=== PATIENT | female | born 1940 | race Caucasian/White ===

== ENCOUNTER → 2016-11-28 | Outpatient (CLI) | payer MEDICARE ==
--- NOTE | 2016-11-28 13:53 | MM ---
Reason for exam: screening (asymptomatic). Last mammogram was performed 1 year and 6 months ago. 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 Reductions of both breasts, 1996. Took estrogen for 3 years. Physical Findings: A clinical breast exam by your physician is recommended on an annual basis and results should be correlated with mammographic findings. MG 3D Screening Mammo W/Cad Bilateral CC and MLO view(s) were taken. Prior study comparison: June 06, 2015, bilateral MG 3d screening mammo w/cad. November 08, 2013, bilateral MG screening mammo w CAD. The breast tissue is almost entirely fat. No significant changes when compared with prior studies. ASSESSMENT: Benign, BI-RAD 2 RECOMMENDATION: Routine screening mammogram of both breasts in 1 year.
== END | disposition home or self-care (01) ==
LOC: RADMAMWWP 09:02
PROVIDERS: ATTEND Internal Medicine
DX: Z12.31 Encounter for screening mammogram for malignant neoplasm of breast (principal)
CPT/HCPCS: 77063; G0202; 36415; 80048; 84443

== ENCOUNTER → 2016-11-28 | Outpatient (CLI) | payer MEDICARE ==
[2016-11-28 09:43] LABS: Anion Gap 11 mmol/L; Blood Urea Nitrogen 22 mg/dL (7-17); Calcium 9.7 mg/dL (8.4-10.2); Carbon Dioxide 30 mmol/L (22-30); Chloride 103 mmol/L (98-107); Glucose 101 mg/dL (74-99); Non-African American GFR(MDRD) 54 (>60 ml/min/1.73 sqM); Potassium 3.7 mmol/L (3.5-5.1); Sodium 144 mmol/L (137-145)
== END | disposition home or self-care (01) ==
LOC: LABWHC1 08:58
PROVIDERS: ATTEND Internal Medicine Clinical Cardiac Electrophysiology
DX: I48.2 Chronic atrial fibrillation (principal)
CPT/HCPCS: 36415; 80048; 84443

== ENCOUNTER 2017-10-20 21:13 | Inpatient (IN) | payer MEDICARE ==
[2017-10-20] MEDS ORDERED: MORPHINE SULFATE 4 MG/0.8 ML SYRINGE (INJ) IVP STA ×2 (21:33→23:01)
[2017-10-20] MEDS: NITROGLYCERIN SL TABS 0.4 MG TAB SUBLINGUAL STA ×4 (21:35→23:04)
--- NOTE | 2017-10-20 21:38 | ED ---
General Adult HPI - General Chief complaint: Chest Pain Stated complaint: MARYLOU/fluid retention Time Seen by Provider: 10/20/17 21:20 Source: patient, RN notes reviewed, old records reviewed Mode of arrival: ambulatory Limitations: no limitations - History of Present Illness Initial comments: 76 -year-old female presenting for evaluation of chest pain. Patient describes severe substernal chest pain and pressure. She does report radiation to her right shoulder. She has history of atrial fibrillation status post pacemaker. She has history of congestive heart failure. In addition to her pain complaints , patient does report worsening dyspnea over the past 3 days and worsening bilateral lower extremity swelling. Patient denies any dietary changes. Denies missing any of her medications. She is currently on the digoxin, metoprolol, furosemide, spironolactone, and xarelto. Patient reports PND and orthopnea. She does report that the pain is been constant for the past 3 days, worse with lying flat. - Related Data Home Medications Medication Instructions Recorded Confirmed Digoxin [Lanoxin] 125 mcg PO DAILY 11/30/13 10/20/17 Furosemide [Lasix] 40 mg PO DAILY 11/30/13 10/20/17 Losartan [Cozaar] 25 mg PO DAILY 11/30/13 10/20/17 Rivaroxaban [Xarelto] 20 mg PO HS 11/30/13 10/20/17 Spironolactone [Aldactone] 25 mg PO MOWEFR 11/30/13 10/20/17 Temazepam 15 mg PO HS PRN 11/30/13 10/20/17 Multivitamins, Thera [Multivitamin 1 tab PO HS 01/20/14 10/20/17 (formulary)] Ubidecarenone [Coq-10] 100 mg PO HS 01/20/14 10/20/17 Atorvastatin [Lipitor] 40 mg PO DAILY 10/20/17 10/20/17 L.acidoph,Paracasei, B.lactis 1 tab PO HS 10/20/17 10/20/17 [Probiotic] Levothyroxine Sodium [Synthroid] 75 mcg PO MOTUWETH 10/20/17 10/20/17 Levothyroxine Sodium [Synthroid] 150 mcg PO SUFRSA 10/20/17 10/20/17 Metoprolol Succinate (ER) [Toprol 100 mg PO BID 10/20/17 10/20/17 Xl] Allergies Allergy/AdvReac Type Severity Reaction Status Date / Time ibuprofen [From Motrin] AdvReac Swelling Verified 10/20/17 21:41 levofloxacin [From Levaquin] AdvReac Rash/Hives Verified 10/20/17 21:41 adhesive tape AdvReac blisters Uncoded 10/20/17 21:18 Review of Systems ROS Statement: Those systems with pertinent positive or pertinent negative responses have been documented in the HPI. ROS Other: All systems not noted in ROS Statement are negative. Past Medical History Past Medical History: Cancer, Heart Failure, GERD/Reflux, Hyperlipidemia, Hypertension, Myocardial Infarction ([place]), Thyroid Disorder Additional Past Medical History / Comment(s): hiatal hernia, arthritis, hx skin cancer, hx diverticulitis,irregular heart rate, pt states some family have genetic disorder that causes blood clots- she has not been dx with the disorder. Last Myocardial Infarction Date:: 04/2012 History of Any Multi-Drug Resistant Organisms: None Reported Past Surgical History: AICD, Bowel Resection, Breast Surgery, Cardiac Ablation, Cholecystectomy, Heart Catheterization, Hysterectomy, Orthopedic Surgery, Pacemaker, Tonsillectomy Additional Past Surgical History / Comment(s): breast reduction, arthroscopic rt knee, generator change 2013 Past Anesthesia/Blood Transfusion Reactions: No Reported Reaction Type of Cardiac Device: Permanent Pacemaker, AICD Device Placement Date:: 2006 Past Psychological History: No Psychological Hx Reported Smoking Status: Former smoker Past Alcohol Use History: Occasional Past Drug Use History: None Reported - Past Family History Mother Family Medical History: Cancer Sister(s) Family Medical History: Cancer, Deep Vein Thrombosis (DVT) Son(s) Family Medical History: Deep Vein Thrombosis (DVT) Brother(s) Family Medical History: Deep Vein Thrombosis (DVT) General Exam Limitations: no limitations General appearance: alert, in no apparent distress Head exam: Present: atraumatic, normocephalic Eye exam: Present: normal appearance, PERRL, EOMI ENT exam: Present: normal exam Neck exam: Present: normal inspection. Absent: tenderness, meningismus Respiratory exam: Present: rales, other (Mild tachypnea). Absent: respiratory distress Cardiovascular Exam: Present: regular rate, normal rhythm GI/Abdominal exam: Present: soft. Absent: distended, tenderness Extremities exam: Present: normal capillary refill, pedal edema (1+ bilateral edema) Neurological exam: Present: alert, oriented X3, CN II-XII intact. Absent: motor sensory deficit Psychiatric exam: Present: normal affect, normal mood Skin exam: Present: warm, dry, intact, normal color. Absent: cyanosis, diaphoretic Course Vital Signs 10/20/17 10/20/17 10/20/17 21:16 21:40 22:10 Temperature 98.1 F Pulse Rate 71 70 60 Respiratory 20 20 18 Rate Blood Pressure 148/70 149/69 155/82 O2 Sat by Pulse 96 97 97 Oximetry 10/20/17 22:57 Temperature 98.3 F Pulse Rate 71 Respiratory 18 Rate Blood Pressure 153/80 O2 Sat by Pulse 97 Oximetry EKG Findings - EKG Comments: EKG Findings:: EKG shows ventricular paced rhythm, rate of 68, QRS duration 146 , QTC 472, no ST segment elevation in the setting of paced rhythm. No significant change compared to EKG obtained in January 2014. Medical Decision Making - Medical Decision Making 76-year-old female presenting with chest pain, dyspnea, and orthopnea. On exam she does have rails bilaterally, and 1+ pitting edema. She is given nitroglycerin, Lasix and morphine in the emergency department. Chest x-rays obtained, she does have moderate cardiomegaly with bilateral pulmonary edema. EKG shows paced rhythm rate of 68, no significant change compared to previous EKG 2013. Patient's chest pain and dyspnea is treated well with nitroglycerin, morphine, and Lasix. Reevaluation her chest pain is nearly completely resolved. Laboratory studies reveal normal white blood cell count, stable hemoglobin, normal electrolytes. BNP significantly elevated at 5000 consistent with congestive heart failure. Troponin mildly elevated 0.043. Patient is anticoagulated, this troponin level will be trended. She will be admitted for further treatment and evaluation. Cardiology placed on consult. Case discussed with Dr. Mckeon who will accept admission. - Lab Data Result diagrams: 10/20/17 21:28 10/20/17 21:28 Lab Results 10/20/17 10/20/17 10/20/17 Range/Units 21:28 21:28 21:28 WBC 12.0 H (3.8-10.6) k/uL RBC 4.14 (3.80-5.40) m/uL Hgb 12.8 (11.4-16.0) gm/dL Hct 37.3 (34.0-46.0) % MCV 90.0 (80.0-100.0) fL MCH 30.9 (25.0-35.0) pg MCHC 34.4 (31.0-37.0) g/dL RDW 13.6 (11.5-15.5) % Plt Count 166 (150-450) k/uL Neutrophils % 77 % Lymphocytes % 15 % Monocytes % 6 % Eosinophils % 1 % Basophils % 0 % Neutrophils # 9.3 H (1.3-7.7) k/uL Lymphocytes # 1.7 (1.0-4.8) k/uL Monocytes # 0.7 (0-1.0) k/uL Eosinophils # 0.2 (0-0.7) k/uL Basophils # 0.0 (0-0.2) k/uL PT (9.0-12.0) sec INR (<1.2) APTT (22.0-30.0) sec Sodium 143 (137-145) mmol/L Potassium 4.3 (3.5-5.1) mmol/L Chloride 106 (98-107) mmol/L Carbon Dioxide 21 L (22-30) mmol/L Anion Gap 16 mmol/L BUN 20 H (7-17) mg/dL Creatinine 1.01 (0.52-1.04) mg/dL Est GFR (CKD-EPI)AfAm 64 (>60 ml/min/1.73 sqM) Est GFR (CKD-EPI)NonAf 55 (>60 ml/min/1.73 sqM) Glucose 123 H (74-99) mg/dL Calcium 9.7 (8.4-10.2) mg/dL Magnesium 2.0 (1.6-2.3) mg/dL Total Bilirubin 1.6 H (0.2-1.3) mg/dL AST 30 (14-36) U/L ALT 46 (9-52) U/L Alkaline Phosphatase 62 (38-126) U/L Total Creatine Kinase 84 (30-135) U/L CK-MB (CK-2) 0.8 (0.0-2.4) ng/mL CK-MB (CK-2) Rel Index 1.0 Troponin I 0.043 H* (0.000-0.034) ng/mL NT-Pro-B Natriuret Pep pg/mL Total Protein 6.8 (6.3-8.2) g/dL Albumin 4.3 (3.5-5.0) g/dL 10/20/17 10/20/17 Range/Units 21:28 21:28 WBC (3.8-10.6) k/uL RBC (3.80-5.40) m/uL Hgb (11.4-16.0) gm/dL Hct (34.0-46.0) % MCV (80.0-100.0) fL MCH (25.0-35.0) pg MCHC (31.0-37.0) g/dL RDW (11.5-15.5) % Plt Count (150-450) k/uL Neutrophils % % Lymphocytes % % Monocytes % % Eosinophils % % Basophils % % Neutrophils # (1.3-7.7) k/uL Lymphocytes # (1.0-4.8) k/uL Monocytes # (0-1.0) k/uL Eosinophils # (0-0.7) k/uL Basophils # (0-0.2) k/uL PT 12.1 H (9.0-12.0) sec INR 1.3 H (<1.2) APTT 23.9 (22.0-30.0) sec Sodium (137-145) mmol/L Potassium (3.5-5.1) mmol/L Chloride (98-107) mmol/L Carbon Dioxide (22-30) mmol/L Anion Gap mmol/L BUN (7-17) mg/dL Creatinine (0.52-1.04) mg/dL Est GFR (CKD-EPI)AfAm (>60 ml/min/1.73 sqM) Est GFR (CKD-EPI)NonAf (>60 ml/min/1.73 sqM) Glucose (74-99) mg/dL Calcium (8.4-10.2) mg/dL Magnesium (1.6-2.3) mg/dL Total Bilirubin (0.2-1.3) mg/dL AST (14-36) U/L ALT (9-52) U/L Alkaline Phosphatase (38-126) U/L Total Creatine Kinase (30-135) U/L CK-MB (CK-2) (0.0-2.4) ng/mL CK-MB (CK-2) Rel Index Troponin I (0.000-0.034) ng/mL NT-Pro-B Natriuret Pep 4940 pg/mL Total Protein (6.3-8.2) g/dL Albumin (3.5-5.0) g/dL Disposition Clinical Impression: Congestive heart failure, Troponin level elevated Disposition: ADMITTED IP TO THIS [facility] Condition: Stable Is patient prescribed a controlled substance at d/c from ED?: No Referrals: Iam Schwartz MD [Primary Care Provider] - 1-2 days Decision to Admit Reason: Admit from EC Decision Date: 10/20/17 Decision Time: 23:09
[2017-10-20 21:44] LABS: Basophils % (A) 0 %; Eosinophils # (A) 0.2 k/uL (0-0.7); Eosinophils % (A) 1 %; HCT 37.3 % (34.0-46.0); HGB 12.8 gm/dL (11.4-16.0); Lymphocytes # (A) 1.7 k/uL (1.0-4.8); Lymphocytes % (A) 15 %; MCH 30.9 pg (25.0-35.0); MCHC 34.4 g/dL (31.0-37.0); Mean Platelet Volume 8.9; Monocytes # (A) 0.7 k/uL (0-1.0); Monocytes % (A) 6 %; Neutrophils # (A) 9.3 k/uL (1.3-7.7); Neutrophils % (A) 77 %; Platelet Count 166 k/uL (150-450); RBC 4.14 m/uL (3.80-5.40); RDW 13.6 % (11.5-15.5)
[2017-10-20 21:52] LABS: INR 1.3 (<1.2); Partial Thromboplastin Time 23.9 sec (22.0-30.0); Prothrombin Time 12.1 sec (9.0-12.0)
[2017-10-20 21:54] LABS: Albumin 4.3 g/dL (3.5-5.0); Calcium 9.7 mg/dL (8.4-10.2); Potassium 4.3 mmol/L (3.5-5.1); Total Bilirubin 1.6 mg/dL (0.2-1.3); Total Protein 6.8 g/dL (6.3-8.2)
--- NOTE | 2017-10-20 22:00 | XR ---
EXAMINATION TYPE: XR chest 2V DATE OF EXAM: 10/20/2017 COMPARISON: 11/30/2013 HISTORY: Chest pain TECHNIQUE: Frontal and lateral views of the chest are obtained. FINDINGS: Heart is enlarged. There is some pulmonary vascular congestion. There is a left axillary p acemaker with the lead tips in the right ventricle. There are chest leads. IMPRESSION: There changes consistent with mild congestive heart failure that is new compared to old exam. Moderate cardiomegaly.
[2017-10-20] MEDS ORDERED: FUROSEMIDE 10 MG/ML 4 ML VIAL IV STA (22:02)
[2017-10-20] MEDS ORDERED: ASPIRIN 325 MG TAB PO STA (22:03)
[2017-10-20 22:14] LABS: Creatine Kinase MB 0.8 ng/mL (0.0-2.4)
[2017-10-20 22:17] LABS: Troponin I 0.043 ng/mL (0.000-0.034)
[2017-10-20] MEDS ORDERED: MORPHINE SULFATE 4 MG/0.8 ML SYRINGE (INJ) IV PRN (23:02)
[2017-10-20] MEDS ORDERED: NALOXONE 0.4 MG/ML 1 ML VIAL IV PRN (23:02)
[2017-10-20] MEDS ORDERED: ACETAMINOPHEN TAB 325 MG TAB PO PRN (23:02)
[2017-10-20 23:55] VITALS: BMI 31.9
[2017-10-21] MEDS ORDERED: RIVAROXABAN 20 MG TAB PO STA (00:44)
[2017-10-21] MEDS ORDERED: METOPROLOL SUCCINATE (ER) 100 MG TAB.ER.24H PO STA (00:44)
[2017-10-21 04:03] LABS: Creatine Kinase MB 0.9 ng/mL (0.0-2.4)
[2017-10-21 04:16] LABS: Troponin I 0.038 ng/mL (0.000-0.034)
[2017-10-21] MEDS: FUROSEMIDE 10 MG/ML 4 ML VIAL IV SCH ×2 (09:15→16:19)
[2017-10-21 09:55] LABS: Troponin I 0.038 ng/mL (0.000-0.034)
[2017-10-21] MEDS ORDERED: TEMAZEPAM 15 MG CAP PO PRN (11:13)
[2017-10-21] MEDS ORDERED: LOSARTAN 25 MG TAB PO SCH (11:15)
--- NOTE | 2017-10-21 12:19 | P.CRDCN ---
History of Present Illness Consult date: 10/21/17 Requesting physician: Sol Mckeon Consult reason: congestive heart failure Chief complaint: Shortness of breath History of present illness: This is a pleasant 76-year-old female who follows with Dr. Mireles in the office. 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 Patient has known history of hypertension, hypothyroidism, hyperlipidemia, chronic persistent atrial fibrillation, prior radiofrequency ablation, nonischemic cardiomyopathy, patient did undergo a cardiac catheterization in 2011 which revealed 50% mid LAD, proximal circumflex 50%, 40% RCA which was chronic and stable. history of AICD implantation, history of ventricular arrhythmia.Patient presents to the hospital with symptoms of a 3 to four-day duration of worsening shortness of breath. She has also noticed a significant increase in peripheral edema or not operative time, positive PND and orthopnea. Patient has also been experiencing a pain which wraps around the upper chest area beneath her breasts, somewhat sharp in nature. Pain has been constant for the past 3 or 4 days, at times worsens with deep breathing. The patient was in [place], and was trying to hold off going to the hospital, because she was flying home yesterday. According to the patient, she has had exacerbations of heart failure in the past, but this seemed much worse than anything she has had before. Her EKG on arrival here showed a ventricular paced rhythm with underlying atrial fibrillation . Chest x-ray shows changes consistent with mild congestive heart failure, new as compared with prior exam. Blood pressure 146/70 with a heart rate in the 70s, 96% on room air. White blood cell count 12.0, hemoglobin 12.8, platelet count 166. Sodium 143, potassium 4.3, BUN 20, creatinine 1.0. Troponins 0.043, 0.038, 0.038. BNP level 4940. Patient was initiated on IV Lasix in the emergency room, her weight is down 3 pounds from admission. At the time of my examination this morning, patient states her breathing is significantly improved, swelling is much less. Past Medical History Past Medical History: Atrial Fibrillation, Cancer, Heart Failure, GERD/Reflux, Hyperlipidemia, Hypertension, Myocardial Infarction ([place]), Thyroid Disorder Additional Past Medical History / Comment(s): hiatal hernia, arthritis, hx skin cancer, hx diverticulitis,pt states some family have genetic disorder that causes blood clots- she has not been dx with the disorder. Last Myocardial Infarction Date:: 04/2012 History of Any Multi-Drug Resistant Organisms: None Reported Past Surgical History: AICD, Bowel Resection, Breast Surgery, Cardiac Ablation, Cholecystectomy, Heart Catheterization, Hysterectomy, Orthopedic Surgery, Pacemaker, Tonsillectomy Additional Past Surgical History / Comment(s): breast reduction, arthroscopic rt knee, generator change 2013 Past Anesthesia/Blood Transfusion Reactions: No Reported Reaction Type of Cardiac Device: Permanent Pacemaker, AICD Device Placement Date:: 2006 Past Psychological History: No Psychological Hx Reported Smoking Status: Former smoker Past Alcohol Use History: Occasional Past Drug Use History: None Reported - Past Family History Mother Family Medical History: Cancer Additional Family Medical History / Comment(s): colon cancer Sister(s) Family Medical History: Cancer, Deep Vein Thrombosis (DVT) Son(s) Family Medical History: Deep Vein Thrombosis (DVT) Brother(s) Family Medical History: CVA/TIA, Deep Vein Thrombosis (DVT) Medications and Allergies Home Medications Medication Instructions Recorded Confirmed Type Digoxin [Lanoxin] 125 mcg PO DAILY 11/30/13 10/20/17 History Furosemide [Lasix] 40 mg PO DAILY 11/30/13 10/20/17 History Losartan [Cozaar] 25 mg PO DAILY 11/30/13 10/20/17 History Rivaroxaban [Xarelto] 20 mg PO HS 11/30/13 10/20/17 History Spironolactone [Aldactone] 25 mg PO MOWEFR 11/30/13 10/20/17 History Temazepam 15 mg PO HS PRN 11/30/13 10/20/17 History Multivitamins, Thera [Multivitamin 1 tab PO HS 01/20/14 10/20/17 History (formulary)] Ubidecarenone [Coq-10] 100 mg PO HS 01/20/14 10/20/17 History Atorvastatin [Lipitor] 40 mg PO DAILY 10/20/17 10/20/17 History L.acidoph,Paracasei, B.lactis 1 tab PO HS 10/20/17 10/20/17 History [Probiotic] Levothyroxine Sodium [Synthroid] 75 mcg PO MOTUWETH 10/20/17 10/20/17 History Levothyroxine Sodium [Synthroid] 150 mcg PO SUFRSA 10/20/17 10/20/17 History Metoprolol Succinate (ER) [Toprol 100 mg PO BID 10/20/17 10/20/17 History Xl] Allergies Allergy/AdvReac Type Severity Reaction Status Date / Time ibuprofen [From Motrin] AdvReac Swelling Verified 10/20/17 21:41 levofloxacin [From Levaquin] AdvReac Rash/Hives Verified 10/20/17 21:41 adhesive tape AdvReac blisters Uncoded 10/20/17 21:18 Physical Exam Vitals: Vital Signs Temp Pulse Pulse Resp BP BP Pulse Ox 10/21/17 10:15 95 10/21/17 09:27 97.5 F L 78 16 135/73 95 10/21/17 09:00 60 16 10/21/17 04:00 64 16 132/71 94 L 10/21/17 00:00 98.3 F 70 16 130/77 95 10/20/17 22:57 98.3 F 71 18 153/80 97 10/20/17 22:10 60 18 155/82 97 10/20/17 21:40 70 20 149/69 97 10/20/17 21:16 98.1 F 71 20 148/70 96 Intake and Output 10/20/17 10/21/17 10/21/17 22:59 06:59 14:59 Intake Total 200 0 Output Total 1000 Balance 200 -1000 Intake: Oral 200 0 Output: Urine 1000 Other: Voiding Method Toilet Toilet # Voids 1 1 Weight 81.647 kg 84.4 kg PHYSICAL EXAMINATION: HEENT: Head is atraumatic, normocephalic. Pupils equal, round. Neck is supple. There is elevated jugular venous pressure. HEART EXAMINATION: Heart S1, S2 normal. No murmur or gallop heard. CHEST EXAMINATION: Lungs are clear to auscultation and precussion. No chest wall tenderness is noted on palpation or with deep breathing. ABDOMEN: Soft, nontender. Bowel sounds are heard. No organomegaly noted. EXTREMITIES: 2+ peripheral pulses with trace evidence of peripheral edema and no calf tenderness noted. NEUROLOGIC patient is awake, alert and oriented -3. . Results 10/20/17 21:28 10/20/17 21:28 Cardiac Enzymes 10/20/17 10/20/17 10/21/17 Range/Units 21:28 21:28 03:19 AST 30 (14-36) U/L CK-MB (CK-2) 0.8 0.9 (0.0-2.4) ng/mL Troponin I 0.043 H* 0.038 H* (0.000-0.034) ng/mL 10/21/17 Range/Units 08:57 AST (14-36) U/L CK-MB (CK-2) 1.0 (0.0-2.4) ng/mL Troponin I 0.038 H* (0.000-0.034) ng/mL Coagulation 10/20/17 Range/Units 21:28 PT 12.1 H (9.0-12.0) sec APTT 23.9 (22.0-30.0) sec CBC 10/20/17 Range/Units 21:28 WBC 12.0 H (3.8-10.6) k/uL RBC 4.14 (3.80-5.40) m/uL Hgb 12.8 (11.4-16.0) gm/dL Hct 37.3 (34.0-46.0) % Plt Count 166 (150-450) k/uL Comprehensive Metabolic Panel 10/20/17 Range/Units 21:28 Sodium 143 (137-145) mmol/L Potassium 4.3 (3.5-5.1) mmol/L Chloride 106 (98-107) mmol/L Carbon Dioxide 21 L (22-30) mmol/L BUN 20 H (7-17) mg/dL Creatinine 1.01 (0.52-1.04) mg/dL Glucose 123 H (74-99) mg/dL Calcium 9.7 (8.4-10.2) mg/dL AST 30 (14-36) U/L ALT 46 (9-52) U/L Alkaline Phosphatase 62 (38-126) U/L Total Protein 6.8 (6.3-8.2) g/dL Albumin 4.3 (3.5-5.0) g/dL Current Medications Generic Name Dose Route Start Last Admin Trade Name Freq PRN Reason Stop Dose Admin Acetaminophen 650 mg 10/20/17 23:02 Tylenol Tab PO Q6HR PRN Mild Pain or Fever > 100.5 Atorvastatin Calcium 40 mg 10/21/17 21:00 Lipitor PO HS REYNA Digoxin 125 mcg 10/22/17 09:00 Lanoxin PO DAILY [facility] Furosemide 40 mg 10/21/17 09:00 10/21/17 09:15 Lasix IV 40 mg Q12HR [facility] Administration Lactobacillus Acidoph/Bulgaricus 1 each 10/21/17 21:00 Lactinex PO HS [facility] Levothyroxine Sodium 75 mcg 10/21/17 11:15 Synthroid PO [id number] [facility] Levothyroxine Sodium 150 mcg 10/24/17 06:30 Synthroid PO [id number] [facility] Losartan Potassium 25 mg 10/21/17 11:15 Cozaar PO DAILY [facility] Metoprolol Succinate 100 mg 10/21/17 11:15 Toprol Xl PO BID [facility] Morphine Sulfate 2 mg 10/20/17 23:02 Morphine Sulfate (Inj) IV Q3HR PRN Severe Pain Multivitamins 1 each 10/21/17 21:00 Theragran PO HS [facility] Naloxone HCl 0.2 mg 10/20/17 23:02 Narcan IV Q2M PRN Opioid Reversal Rivaroxaban 20 mg 10/21/17 17:30 Xarelto PO W/SUPPER [facility] Spironolactone 25 mg 10/22/17 09:00 Aldactone PO MOWEFR [facility] Temazepam 15 mg 10/21/17 11:13 Restoril PO HS PRN Insomnia Intake and Output 10/20/17 10/21/17 10/21/17 22:59 06:59 14:59 Intake Total 200 0 Output Total 1000 Balance 200 -1000 Intake: Oral 200 0 Output: Urine 1000 Other: Voiding Method Toilet Toilet # Voids 1 1 Weight 81.647 kg 84.4 kg 10/20/17 21:28 10/20/17 21:28 EKG Interpretations (text) EKG shows a ventricular paced rhythm with underlying atrial fibrillation Assessment and Plan Plan: Assessment and plan #1 systolic congestive heart failure acute on chronic #2 nonischemic cardio myopathy with prior AICD implantation. Patient did have a cardiac catheterization performed on 2 separate occasions, most recently in 2011 at which time she was noted to have a 50% mid LAD, 50% circumflex, 40% RCA. #3 hypertension #4 hyperlipidemia #5 chronic persistent atrial fibrillation, patient has had prior radiofrequency ablation #6 hypothyroidism #7 history of ventricular arrhythmia Plan An echocardiogram with Doppler study has been requested. We will continue current dose of IV Lasix for 24 hours. Continue losartan, metoprolol, Aldactone , Xarelto, Lanoxin, and Lipitor. Monitor intake and output along with daily weights and daily lytes BUN and creatinine. Further recommendations to follow. DNP note has been reviewed, I agree with a documented findings and plan of care. Patient was seen and examined.
[2017-10-21] MEDS: METOPROLOL SUCCINATE (ER) 100 MG TAB.ER.24H PO SCH ×2 (12:41→21:01)
[2017-10-21] MEDS: LEVOTHYROXINE 75 MCG TAB PO SCH (12:41)
[2017-10-21] MEDS ORDERED: DIGOXIN 125 MCG TAB PO ONE (12:44)
--- NOTE | 2017-10-21 13:16 | P.PN ---
Progress Note - Text this is an addendum to the dictated cardiology consultation. The patient has a known history of nonischemic myopathy, for ablation as well as ICD biventricular pacing who presents with symptoms of worsening dyspnea, weight gain, edema, PND and orthopnea she was in [place] and she believes that probably she was eating more salt than her baseline. She denies any chest pain , dizziness or palpitations. She has no syncope. Her physical examination shows increase jugular venous pressure, minimal crackles at the base, a systolic murmur and trace to 1+ edema. She's feeling much better this morning since diuresis yesterday. The patient presents with exacerbation of CHF with known systolic dysfunction we will continue intravenous diuresis for 24 hours, follow her renal functions and depending on her progress further recommendations will be made. Thank you for this consult we will follow with you.
--- NOTE | 2017-10-21 15:38 | P.HPIM ---
History of Present Illness H&P Date: 10/21/17 76 years old female patient of Dr. Mcknight, Dr. Azevedo with past medical history of atrial fibrillation status post ablation, nonischemic cardiomyopathy, hyperlipidemia, hypertension, history of ventricular arrhythmias status post AICD placement comes in with chest pain and shortness of breath that started 3 days ago. Patient was in [place] since April and just returned yesterday. She was unpacking and moving her furniture when she noticed chest pain and difficulty breathing. Chest pain was constant, worsened with deep breath and radiated to the back. She also noticed lower extremity swelling for the past 3 days. She endorses significant PND and orthopnea. Patient came for evaluation labs done in the ER suggested BNP of 4940, low TSH 0.309, troponin 0.43 0.038 0.038. Vitals were stable patient was afebrile and respiratory rate 16, heart rate 70, blood pressure 133/84. Patient received IV Lasix 40 mg with improvement. Continue IV diuresis for another 24 hours. Maintain input and output. Daily weight. Cardiology consulted. Echo ordered. Review of Systems Constitutional: Denies chills, Denies fever, Denies lethargy, Denies malaise, Denies poor appetite, Denies weakness, Denies weight loss Eyes: denies decreased vision, denies diplopia, denies discharge, denies pain Ears: deny: decreased hearing Ears, nose, mouth and throat: Denies dental pain, Denies headache, Denies nasal discharge, Denies nose pain Cardiovascular: Endorses chest pain, endorses decreased exercise tolerance, endorses edema, Denies high blood pressure, Denies irregular heart beat, Denies palpitations, endorses paroxysmal nocturnal dyspnea, Denies rapid heart beat, endorses shortness of breath Respiratory: Denies congestion, Denies cough, Denies cough with sputum, endorses dyspnea, Denies home oxygen, Denies wheezing Gastrointestinal: Denies abdominal pain, Denies change in bowel habits, Denies coffee ground emesis, Denies early satiety, Denies excessive gas, Denies heartburn, Denies hematemesis, Denies hematochezia, Denies loss of appetite, Denies nausea, Denies vomiting Genitourinary: Denies dysuria, Denies flank pain, Denies kidney stones, Denies menorrhagia, Denies urgency, Denies urinary frequency Musculoskeletal: Denies gait dysfunction, Denies limitation of motion, Denies morning stiffness, Denies muscle cramps Integumentary: Denies rash, Denies wounds, Denies brittle nails, Denies change in hair/nails, Denies darkening of skin, bloody nipple discharge Neurological: Denies balance difficulties, Denies change in speech, Denies double vision, Denies gait dysfunction, Denies loss of vision, Denies motor disturbance, Denies numbness, Denies paralysis, Denies paresthesias, Denies seizures Psychiatric: Denies anxiety, Denies depression Endocrine: Denies excessive sweating, Denies excessive thirst, Denies high blood sugars, Denies palpitations Hematologic/Lymphatic: Denies easy bruising, Denies lymphadenopathy Past Medical History Past Medical History: Atrial Fibrillation, Cancer, Heart Failure, GERD/Reflux, Hyperlipidemia, Hypertension, Myocardial Infarction ([place]), Thyroid Disorder Additional Past Medical History / Comment(s): hiatal hernia, arthritis, hx skin cancer, hx diverticulitis,pt states some family have genetic disorder that causes blood clots- she has not been dx with the disorder. Last Myocardial Infarction Date:: 04/2012 History of Any Multi-Drug Resistant Organisms: None Reported Past Surgical History: AICD, Bowel Resection, Breast Surgery, Cardiac Ablation, Cholecystectomy, Heart Catheterization, Hysterectomy, Orthopedic Surgery, Pacemaker, Tonsillectomy Additional Past Surgical History / Comment(s): breast reduction, arthroscopic rt knee, generator change 2013 Past Anesthesia/Blood Transfusion Reactions: No Reported Reaction Type of Cardiac Device: Permanent Pacemaker, AICD Device Placement Date:: 2006 Past Psychological History: No Psychological Hx Reported Smoking Status: Former smoker (quit in 1995, smoked .5 pack since 1959) Past Alcohol Use History: Occasional Past Drug Use History: None Reported - Past Family History Mother Family Medical History: Cancer Additional Family Medical History / Comment(s): At the age 84 colon cancer Sister(s) Family Medical History: Cancer, Deep Vein Thrombosis (DVT) Son(s) Family Medical History: Deep Vein Thrombosis (DVT) Brother(s) Family Medical History: CVA/TIA, Deep Vein Thrombosis (DVT) Additional Family Medical History / Comment(s): She had 2 brothers with a history of stroke Father Family Medical History: Congestive Heart Failure (CHF) (father had a AICD for enlarged heart) Medications and Allergies Home Medications Medication Instructions Recorded Confirmed Type Digoxin [Lanoxin] 125 mcg PO DAILY 11/30/13 10/20/17 History Furosemide [Lasix] 40 mg PO DAILY 11/30/13 10/20/17 History Losartan [Cozaar] 25 mg PO DAILY 11/30/13 10/20/17 History Rivaroxaban [Xarelto] 20 mg PO HS 11/30/13 10/20/17 History Spironolactone [Aldactone] 25 mg PO MOWEFR 11/30/13 10/20/17 History Temazepam 15 mg PO HS PRN 11/30/13 10/20/17 History Multivitamins, Thera [Multivitamin 1 tab PO HS 01/20/14 10/20/17 History (formulary)] Ubidecarenone [Coq-10] 100 mg PO HS 01/20/14 10/20/17 History Atorvastatin [Lipitor] 40 mg PO DAILY 10/20/17 10/20/17 History L.acidoph,Paracasei, B.lactis 1 tab PO HS 10/20/17 10/20/17 History [Probiotic] Levothyroxine Sodium [Synthroid] 75 mcg PO MOTUWETH 10/20/17 10/20/17 History Levothyroxine Sodium [Synthroid] 150 mcg PO SUFRSA 10/20/17 10/20/17 History Metoprolol Succinate (ER) [Toprol 100 mg PO BID 10/20/17 10/20/17 History Xl] Allergies Allergy/AdvReac Type Severity Reaction Status Date / Time ibuprofen [From Motrin] AdvReac Swelling Verified 10/20/17 21:41 levofloxacin [From Levaquin] AdvReac Rash/Hives Verified 10/20/17 21:41 adhesive tape AdvReac blisters Uncoded 10/20/17 21:18 Physical Exam Vitals: Vital Signs Temp Pulse Pulse Resp BP BP Pulse Ox 10/21/17 10:15 95 10/21/17 09:27 97.5 F L 78 16 135/73 95 10/21/17 09:00 60 16 10/21/17 04:00 64 16 132/71 94 L 10/21/17 00:00 98.3 F 70 16 130/77 95 10/20/17 22:57 98.3 F 71 18 153/80 97 04/23/18 22:10 60 18 155/82 97 10/20/17 21:40 70 20 149/69 97 10/20/17 21:16 98.1 F 71 20 148/70 96 Intake and Output 10/20/17 10/21/17 10/21/17 22:59 06:59 14:59 Intake Total 200 0 Output Total 1000 Balance 200 -1000 Intake: Oral 200 0 Output: Urine 1000 Other: Voiding Method Toilet Toilet # Voids 1 1 Weight 81.647 kg 84.4 kg - Constitutional General appearance: cooperative, no acute distress, very pleasant appearing - EENT Eyes: anicteric sclerae, PERRLA, normal appearance ENT: hearing grossly normal - Neck Neck: no lymphadenopathy, normal ROM, no other, no rigidity, no stridor, no thyromegaly - Respiratory Respiratory: bilateral: Decreased air is entry with basilar crackles bilaterally no wheezing - Cardiovascular Rhythm: regular Heart sounds: normal: S1, S2 Abnormal Heart Sounds: no systolic murmur, no diastolic murmur, no rub, no S3 Gallop, no S4 Gallop, no click, 1+ pitting edema - Gastrointestinal General gastrointestinal: normal bowel sounds, soft - Integumentary Integumentary: no rash, bloody discharge from the right nipple - Neurologic Neurologic: CNII-XII intact - Musculoskeletal Musculoskeletal: gait normal, strength equal bilaterally - Psychiatric Psychiatric: A&O x's 3, appropriate affect Results CBC & Chem 7: 10/20/17 21:28 10/20/17 21:28 Labs: Abnormal Lab Results - Last 24 Hours (Table) 10/20/17 10/20/17 10/20/17 Range/Units 21:28 21:28 21:28 WBC 12.0 H (3.8-10.6) k/uL Neutrophils # 9.3 H (1.3-7.7) k/uL PT (9.0-12.0) sec INR (<1.2) Carbon Dioxide 21 L (22-30) mmol/L BUN 20 H (7-17) mg/dL Glucose 123 H (74-99) mg/dL Total Bilirubin 1.6 H (0.2-1.3) mg/dL Troponin I 0.043 H* (0.000-0.034) ng/mL 10/20/17 10/21/17 10/21/17 Range/Units 21:28 03:19 08:57 WBC (3.8-10.6) k/uL Neutrophils # (1.3-7.7) k/uL PT 12.1 H (9.0-12.0) sec INR 1.3 H (<1.2) Carbon Dioxide (22-30) mmol/L BUN (7-17) mg/dL Glucose (74-99) mg/dL Total Bilirubin (0.2-1.3) mg/dL Troponin I 0.038 H* 0.038 H* (0.000-0.034) ng/mL Thrombosis Risk Factor Assmnt - DVT/VTE Prophylaxis DVT/VTE Prophylaxis: Pharmacologic Prophylaxis ordered - Choose All That Apply Any of the Below Risk Factors Present?: Yes Each Factor Represents 1 point: Obesity (BMI >25), Swollen legs (current) Other Risk Factors: Yes Each Risk Factor Represents 2 Points: Age 61-74 years Each Risk Factor Represents 3 Points: Family history of DVT/PE Other congenital or acquired thrombophilia - If yes, enter type in comment: No Thrombosis Risk Factor Assessment Total Risk Factor Score: 7 Thrombosis Risk Factor Assessment Level: High Risk Assessment and Plan Plan: #1 acute shortness of breath likely secondary to acute systolic congestive heart failure. Echo ordered to evaluate ejection fraction patient has a AICD. He had 2 cardiac catheterization last one in 2011 with minimal coronary artery disease. Continue input and output monitoring. Daily weight continue Lasix 40 IV twice a day. Continue losartan, metoprolol, Aldactone, digoxin and Lipitor. #2 hypertension continue losartan, metoprolol, Aldactone #3 hyperlipidemia continue Lipitor #4 chronic persistent atrial fibrillation with history of ablation in the past continue digoxin, metoprolol. Continue Xarelto #5 history of hypothyroidism. Patient takes 150 g Friday and Friday and 75 g Friday and . TSH low on this regimen. We will reduce levothyroxine to 100 g on Friday and Friday. #6 bloody nipple discharge from the right recent mammogram was done which was negative. Patient's presentation could be benign but due to bloody discharge there is a concern of ductal carcinoma been have surgery to evaluate the patient. Patient may need ultrasound of the breast for further evaluation. Prolactin ordered #7 DVT prophylaxis continue Xarelto Disposition patient need at least 2 inpatient nights IV diuresis CODE STATUS full code
[2017-10-21 16:03] LABS: Magnesium 1.9 mg/dL (1.6-2.3); Potassium 4.7 mmol/L (3.5-5.1)
[2017-10-21] MEDS ORDERED: RIVAROXABAN 20 MG TAB PO SCH (17:30)
[2017-10-21] MEDS ORDERED: IBUPROFEN 400 MG TAB PO STA (19:00)
[2017-10-21] MEDS ORDERED: ALPRAZolam 0.25 MG TAB PO STA (19:00)
[2017-10-21] MEDS: LOSARTAN 25 MG TAB PO SCH (19:57)
[2017-10-21] MEDS ORDERED: MULTIVITAMINS, THERA 1 EACH TAB PO SCH (21:00)
[2017-10-21] MEDS ORDERED: LACTOBACILLUS ACIDOPH & BULGAR 1 EACH PACKET PO SCH (21:00)
[2017-10-21] MEDS ORDERED: ATORVASTATIN 40 MG TAB PO SCH (21:00)
[2017-10-21 22:25] LABS: Calcium 10.1 mg/dL (8.4-10.2); Magnesium 1.8 mg/dL (1.6-2.3); Potassium 4.2 mmol/L (3.5-5.1)
[2017-10-22 06:28] LABS: Basophils % (A) 0 %; Eosinophils # (A) 0.2 k/uL (0-0.7); Eosinophils % (A) 2 %; HCT 37.4 % (34.0-46.0); HGB 12.8 gm/dL (11.4-16.0); Lymphocytes # (A) 1.7 k/uL (1.0-4.8); Lymphocytes % (A) 16 %; MCH 30.6 pg (25.0-35.0); MCHC 34.1 g/dL (31.0-37.0); MCV 89.6 fL (80.0-100.0); Mean Platelet Volume 7.9; Monocytes # (A) 0.8 k/uL (0-1.0); Monocytes % (A) 8 %; Neutrophils # (A) 7.4 k/uL (1.3-7.7); Neutrophils % (A) 73 %; Platelet Count 176 k/uL (150-450); RBC 4.18 m/uL (3.80-5.40); RDW 13.5 % (11.5-15.5); WBC 10.3 k/uL (3.8-10.6)
[2017-10-22] MEDS: LEVOTHYROXINE 75 MCG TAB PO SCH (06:29)
[2017-10-22 06:46] LABS: Calcium 9.4 mg/dL (8.4-10.2); Potassium 3.8 mmol/L (3.5-5.1)
[2017-10-22 08:33] VITALS: RESP 14
[2017-10-22] MEDS: FUROSEMIDE 10 MG/ML 4 ML VIAL IV SCH (08:54)
[2017-10-22] MEDS: METOPROLOL SUCCINATE (ER) 100 MG TAB.ER.24H PO SCH (08:54)
[2017-10-22] MEDS: LOSARTAN 25 MG TAB PO SCH (08:55)
[2017-10-22] MEDS ORDERED: SPIRONOLACTONE 25 MG TAB PO SCH (09:00)
[2017-10-22] MEDS ORDERED: DIGOXIN 125 MCG TAB PO SCH (09:00)
--- NOTE | 2017-10-22 10:42 | ECHOF ---
Referral Reason:chf MEASUREMENTS -------- HEIGHT: 162.6 cm WEIGHT: 84.4 kg BP: RVIDd: 2.8 cm (< 3.3) IVSd: 0.7 cm (0.6 - 1.1) LVIDd: 6.2 cm (3.9 - 5.3) LVPWd: 0.7 cm (0.6 - 1.1) IVSs: 0.7 cm LVIDs: 6.1 cm LVPWs: 0.8 cm LAESV Index (A-L): 55.56 ml/m Ao Diam: 3.4 cm (2.0 - 3.7) AV Cusp: 2.2 cm (1.5 - 2.6) LA Diam: 4.3 cm (2.7 - 3.8) MV EXCURSION: 18.048 mm (> 18.000) MV EF SLOPE: 57 mm/s (70 - 150) EPSS: 2.1 cm MV E Giovany: 0.78 m/s MV DecT: 116 ms MV A Giovany: 0.22 m/s MV E/A Ratio: 3.50 AR PHT: 455 ms RAP: 20.00 mmHg RVSP: 47.94 mmHg FINDINGS -------- Paced rhythm. AICD This was a technically good study. The left ventricle is severely dilated. Left ventricular wall thickness is normal. There is sever e global hypokinesis of LV . Overall left ventricular systolic function is severely impaired with, an EF between 20 - 25 %. The right ventricle is normal in size and function. LA is severely dilated >40 ml/m2 The right atrium is normal in size. Aortic valve is trileaflet and is mildly thickened. There is mild aortic regurgitation. The mitral valve leaflets are mildly thickened. Moderate mitral regurgitation is present. Mild tricuspid regurgitation present. There is mild pulmonary hypertension. The right ventricular systolic pressure, as measured by Doppler, is 47.94mmHg. Trace/mild (physiologic) pulmonic regurgitation. The aortic root size is normal. The inferior vena cava is dilated with no significant inspiratory collapse which is consistent estima corrie right atrial pressure of >20 mmHg. The pericardium is normal. CONCLUSIONS -------- 1. Paced rhythm. 2. AICD 3. This was a technically good study. 4. The left ventricle is severely dilated. 5. Left ventricular wall thickness is normal. 6. There is severe global hypokinesis of LV . 7. Overall left ventricular systolic function is severely impaired with, an EF between 20 - 25 %. 8. The right ventricle is normal in size and function. 9. LA is severely dilated >40 ml/m2 10. The right atrium is normal in size. 11. Aortic valve is trileaflet and is mildly thickened. 12. There is mild aortic regurgitation. 13. The mitral valve leaflets are mildly thickened. 14. Moderate mitral regurgitation is present. 15. Mild tricuspid regurgitation present. 16. There is mild pulmonary hypertension. 17. The right ventricular systolic pressure, as measured by Doppler, is 47.94mmHg. 18. Trace/mild (physiologic) pulmonic regurgitation. 19. The aortic root size is normal. 20. The inferior vena cava is dilated with no significant inspiratory collapse which is consistent es timated right atrial pressure of >20 mmHg. 21. The pericardium is normal. UI SOFTWARE DEVELOPER: Mary Orta RDCS
[2017-10-22] MEDS ORDERED: POTASSIUM CHLORIDE ER 20 MEQ TAB.ER PO STA (12:20)
[2017-10-22 12:46] VITALS: BP 117/69; PULSE 70; TEMP 97.1
[2017-10-22] MEDS ORDERED: MORPHINE ORAL SOLN 10 MG/5 ML CUP PO PRN (14:04)
--- NOTE | 2017-10-22 16:20 | P.PN ---
Subjective Progress Note Date: 10/22/17 This is a pleasant 76-year-old female who follows with Dr. Mireles in the office. She also has a diagnostic radiologic technologist in [place] that she follows with. Patient has known history of hypertension, hypothyroidism, hyperlipidemia, chronic persistent atrial fibrillation, prior radiofrequency ablation, nonischemic cardiomyopathy, patient did undergo a cardiac catheterization in 2011 which revealed 50% mid LAD, proximal circumflex 50%, 40% RCA which was chronic and stable. history of AICD implantation, history of ventricular arrhythmia.Patient presents to the hospital with symptoms of a 3 to four-day duration of worsening shortness of breath. She has also noticed a significant increase in peripheral edema or not operative time, positive PND and orthopnea. Patient has also been experiencing a pain which wraps around the upper chest area beneath her breasts, somewhat sharp in nature. Pain has been constant for the past 3 or 4 days, at times worsens with deep breathing. The patient was in [place], and was trying to hold off going to the hospital, because she was flying home yesterday. According to the patient, she has had exacerbations of heart failure in the past, but this seemed much worse than anything she has had before. Her EKG on arrival here showed a ventricular paced rhythm with underlying atrial fibrillation . Chest x-ray shows changes consistent with mild congestive heart failure, new as compared with prior exam. Blood pressure 146/70 with a heart rate in the 70s, 96% on room air. White blood cell count 12.0, hemoglobin 12.8, platelet count 166. Sodium 143, potassium 4.3, BUN 20, creatinine 1.0. Troponins 0.043, 0.038, 0.038. BNP level 4940. Patient was initiated on IV Lasix in the emergency room, her weight is down 3 pounds from admission. At the time of my examination this morning, patient states her breathing is significantly improved, swelling is much less. 10/22/2017 Patient seen and examined this morning, continued to diurese well through the night last night. Had significant leg cramps through the night last night. Blood pressure 117/60 with a heart rate in the 70s, 96% on room air. CBC normal , potassium 3.8, BUN 26, creatinine 1.0. Magnesium 1.8. Objective - Vital Signs Vital signs: Vital Signs Temp 97.1 F L 10/22/17 12:00 Pulse 70 10/22/17 12:00 Resp 14 10/22/17 12:00 BP 117/69 10/22/17 12:00 Pulse Ox 96 10/22/17 12:00 Intake & Output 10/21/17 10/22/17 10/22/17 18:59 06:59 18:59 Intake Total 480 200 480 Output Total 1900 900 Balance -1420 200 -420 Weight 84.4 kg 80.6 kg Intake: Oral 480 200 480 Output: Urine 1900 900 Other: Voiding Method Toilet Toilet Toilet # Voids 1 1 - Exam PHYSICAL EXAMINATION: HEENT: Head is atraumatic, normocephalic. Pupils equal, round. Neck is supple. There is elevated jugular venous pressure. HEART EXAMINATION: Heart S1, S2 normal. No murmur or gallop heard. CHEST EXAMINATION: Lungs are clear to auscultation and precussion. No chest wall tenderness is noted on palpation or with deep breathing. ABDOMEN: Soft, nontender. Bowel sounds are heard. No organomegaly noted. EXTREMITIES: 2+ peripheral pulses with no evidence of peripheral edema and no calf tenderness noted. NEUROLOGIC patient is awake, alert and oriented -3. - Labs CBC & Chem 7: 10/22/17 06:09 10/22/17 06:09 Labs: Abnormal Lab Results - Last 24 Hours (Table) 10/21/17 10/22/17 Range/Units 21:54 06:09 Chloride 96 L 97 L (98-107) mmol/L BUN 25 H 26 H (7-17) mg/dL Creatinine 1.11 H (0.52-1.04) mg/dL Glucose 106 H (74-99) mg/dL Assessment and Plan Plan: Assessment and plan #1 systolic congestive heart failure acute on chronic #2 nonischemic cardio myopathy with prior AICD implantation. Patient did have a cardiac catheterization performed on 2 separate occasions, most recently in 2011 at which time she was noted to have a 50% mid LAD, 50% circumflex, 40% RCA. #3 hypertension #4 hyperlipidemia #5 chronic persistent atrial fibrillation, patient has had prior radiofrequency ablation #6 hypothyroidism #7 history of ventricular arrhythmia Plan Echocardiogram with Doppler study revealed normal left ventricular systolic function. We will discontinue IV Lasix and start the patient on oral diuretics today. She may be able to be discharged from cardiology's perspective to follow -up with Dr. Mireles in the office 2 weeks post discharge. DNP note has been reviewed, I agree with a documented findings and plan of care. Patient was seen and examined.
--- NOTE | 2017-10-23 15:34 | P.DS ---
Providers Date of admission: 10/20/17 23:02 Expected date of discharge: 10/22/17 Attending physician: Sol Mckeon MD Consults: 10/20/17 23:02 Consult Physician Routine Consulting Provider: Doris Alba Consult Reason/Comments: Congestive heart failure, troponin elevation Do you want consulting provider notified?: Yes 10/21/17 15:26 Consult Physician Routine Consulting Provider: Kailyn Lima Consult Reason/Comments: bloody discharge from right breast Do you want consulting provider notified?: Yes Primary care physician: [facility] Course: 76 years old female patient of Dr. Mcknight, Dr. Azevedo with past medical history of atrial fibrillation status post ablation, nonischemic cardiomyopathy, hyperlipidemia, hypertension, history of ventricular arrhythmias status post AICD placement comes in with chest pain and shortness of breath that started 3 days ago. Patient was in [place] since April and just returned yesterday. She was unpacking and moving her furniture when she noticed chest pain and difficulty breathing. Chest pain was constant, worsened with deep breath and radiated to the back. She also noticed lower extremity swelling for the past 3 days. She endorses significant PND and orthopnea. Patient came for evaluation labs done in the ER suggested BNP of 4940, low TSH 0.309, troponin 0.43 0.038 0.038. Vitals were stable patient was afebrile and respiratory rate 16, heart rate 70, blood pressure 133/84. Patient received IV Lasix 40 mg with improvement. Continue IV diuresis for another 24 hours. Maintain input and output. Daily weight. Cardiology consulted. Echo ordered. 10/22: Patient has been afebrile. Pulse ox is 94% on room air. Weight is down 4 kg since admission. BUN is 26 and creatinine 1.0. Prolactin level came back normal at 9.1. Patient will be set up an appointment with Dr. Zelalem Mena for follow-up as an outpatient and ultrasound of the right breast has been ordered as an outpatient. She is currently on Lasix 40 mg IV every 12 hours. Echo report reveals EF with 20-25% with severe global hypokinesia of the LV, LA severely dilated greater than 40, mild aortic regurgitation, moderate mitral regurgitation, mild tricuspid regurgitation, mild pulmonary hypertension. Patient had a rough night with bilateral lower extremity cramping. She was given Xanax and morphine and she is not sure which one helped. Her lungs are currently clear. She denies any shortness of breath or chest pain. Patient will be discharged home today once cleared by cardiology. Discharge diagnoses: 1. Acute shortness of breath likely secondary to acute systolic congestive heart failure. 2. Hypertension 3. Hyperlipidemia 4. Chronic persistent atrial fibrillation with history of ablation in the past 5. History of hypothyroidism 6. Bloody nipple discharge from the right Discharge plan: Return home Impression and plan of care have been directed as dictated by the signing physician. Merlene Bunch nurse practitioner acting as scribe for signing physician. Patient Condition at Discharge: Good Plan - Discharge Summary New Discharge Prescriptions: New Losartan [Cozaar] 25 mg PO BID #60 tab Potassium Chloride ER [K-Dur 10] 10 meq PO DAILY #30 tab Continue Rivaroxaban [Xarelto] 20 mg PO HS Temazepam 15 mg PO HS PRN PRN Reason: Insomnia Furosemide [Lasix] 40 mg PO DAILY Digoxin [Lanoxin] 125 mcg PO DAILY Spironolactone [Aldactone] 25 mg PO MOWEFR Ubidecarenone [Coq-10] 100 mg PO HS Multivitamins, Thera [Multivitamin (formulary)] 1 tab PO HS Metoprolol Succinate (ER) [Toprol XL] 100 mg PO BID Atorvastatin [Lipitor] 40 mg PO DAILY Levothyroxine Sodium [Synthroid] 150 mcg PO SUFRSA Levothyroxine Sodium [Synthroid] 75 mcg PO MOTUWETH L.acidoph,Paracasei, B.lactis [Probiotic] 1 tab PO HS Discontinued Losartan [Cozaar] 25 mg PO DAILY Discharge Medication List Digoxin [Lanoxin] 125 mcg PO DAILY 11/30/13 [History] Furosemide [Lasix] 40 mg PO DAILY 11/30/13 [History] Rivaroxaban [Xarelto] 20 mg PO HS 11/30/13 [History] Spironolactone [Aldactone] 25 mg PO MOWEFR 11/30/13 [History] Temazepam 15 mg PO HS PRN 11/30/13 [History] Multivitamins, Thera [Multivitamin (formulary)] 1 tab PO HS 01/20/14 [History] Ubidecarenone [Coq-10] 100 mg PO HS 01/20/14 [History] Atorvastatin [Lipitor] 40 mg PO DAILY 10/20/17 [History] L.acidoph,Paracasei, B.lactis [Probiotic] 1 tab PO HS 10/20/17 [History] Levothyroxine Sodium [Synthroid] 75 mcg PO MOTUWETH 10/20/17 [History] Levothyroxine Sodium [Synthroid] 150 mcg PO SUFRSA 10/20/17 [History] Metoprolol Succinate (ER) [Toprol XL] 100 mg PO BID 10/20/17 [History] Losartan [Cozaar] 25 mg PO BID #60 tab 10/22/17 [Rx] Potassium Chloride ER [K-Dur 10] 10 meq PO DAILY #30 tab 10/22/17 [Rx] Follow up Appointment(s)/Referral(s): Donny Mireles MD [STAFF PHYSICIAN] - 10/29/17 2:45 pm Kailyn Lima MD [STAFF PHYSICIAN] - 11/07/17 11:20 am ([facility]. [phone] Please arrive 15 minutes prior to appointment, current list of med, any known allergies. Insurance card and picture ID. Confirmation number: [id number]) Iam Schwartz MD [Primary Care Provider] - 10/30/17 2:00 pm (Office to call with follow up appointment.) Patient Instructions/Handouts: Heart Failure (DC), Heart Healthy Diet (DC) Discharge Disposition: HOME SELF-CARE
[2017-10-24] MEDS ORDERED: LEVOTHYROXINE 75 MCG TAB PO SCH (06:30)
[2017-10-24] MEDS ORDERED: LEVOTHYROXINE 100 MCG TAB PO SCH (06:30)
== END 2017-10-22 16:00 | disposition home or self-care (01) | DRG 292 ==
LOC: EC 21:13 → 6SEL 23:02
PROVIDERS: ADMIT Internal Medicine; ATTEND Internal Medicine
DX: I11.0 Hypertensive heart disease with heart failure (principal); I48.1 Persistent atrial fibrillation; R77.8 Other specified abnormalities of plasma proteins; I50.23 Acute on chronic systolic (congestive) heart failure; I42.9 Cardiomyopathy, unspecified; I25.10 Atherosclerotic heart disease of native coronary artery without angina pectoris; E78.5 Hyperlipidemia, unspecified; E03.9 Hypothyroidism, unspecified; I34.0 Nonrheumatic mitral (valve) insufficiency; M19.90 Unspecified osteoarthritis, unspecified site; K44.9 Diaphragmatic hernia without obstruction or gangrene; I27.20 Pulmonary hypertension, unspecified; E66.9 Obesity, unspecified; K21.9 Gastro-esophageal reflux disease without esophagitis; Z68.30 Body mass index [BMI] 30.0-30.9, adult; N64.52 Nipple discharge; Z95.810 Presence of automatic (implantable) cardiac defibrillator; Z79.01 Long term (current) use of anticoagulants; Z79.899 Other long term (current) drug therapy; Z79.890 Hormone replacement therapy; Z90.49 Acquired absence of other specified parts of digestive tract; Z90.710 Acquired absence of both cervix and uterus; Z87.891 Personal history of nicotine dependence; Z80.0 Family history of malignant neoplasm of digestive organs; Z82.3 Family history of stroke; Z83.2 Family history of diseases of the blood and blood-forming organs and certain disorders involving the immune mechanism; Z82.49 Family history of ischemic heart disease and other diseases of the circulatory system; I25.2 Old myocardial infarction; Z85.828 Personal history of other malignant neoplasm of skin; Z88.6 Allergy status to analgesic agent; Z88.1 Allergy status to other antibiotic agents; Z88.8 Allergy status to other drugs, medicaments and biological substances
CPT/HCPCS: 36415; 71046; 80048; 80053; 82550; 82553; 83735; 83880; 84132; 84146; 84484; 85025; 85610; 85730; 93005; 93306; 94760; 96374; 96375; 96376; 99285

== ENCOUNTER → 2017-11-07 | Outpatient (CLI) | payer MEDICARE ==
[2017-11-07 11:23] VITALS: PULSE 76; TEMP 98.2; BMI 29.8
--- NOTE | 2017-11-07 11:47 | P.GSHP ---
History of Present Illness H&P Date: 11/07/17 Patient is a 76 year old white female with a complaint of bleeding from her right nipple. she first noted it three months ago. This is intermittant. It is red blood. No pain in her breast. No masses in her breast. Last mammogram was done 11/28/16 no lesions of concern. Nothing noted in the left breast. The discharge is spontaneous. Patient had a breast reduction in 1995. Skin cancer dx. on her face about 10 years ago. [facility]ero risk assesment: 5 year 1.4% lifetime 3.3% Hormone History: menarche: 17 pregnancys: 3, 1 miscarriage, first live at 23 breast fed: both menopause: hysterectomy at 42, did not take ovarys, done for bleeding Past surgical history: 1. gallbladder 2. pacemaker 3. breast reduction 4. hernia 5. colon resection 6. tonsil 7. hysterctomy 8. pacemaker past medical history: 1. atrial fib/pacemaker defibrillator family history: 1. mother colon cancer 2. sister skin cancer 3. 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), deny : ear discharge, earache, tinnitus Ears, nose, mouth and throat: Denies headache, Denies sore throat - Breasts Breasts: bilateral: as per HPI - Cardiovascular Comment: atrial fib, pacemaker/defirilator CHF - Respiratory Comment: SOB related to CHF - Gastrointestinal Comment: loose stools Gastrointestinal: Denies abdominal pain, Denies diarrhea, Denies nausea, Denies vomiting - Genitourinary (Female) Genitourinary: Denies dysuria, Denies hematuria - Musculoskeletal Comment: arthritis - Integumentary Integumentary: Denies pruritus, Denies rash - Neurological Neurological: Denies numbness, Denies weakness - Psychiatric Psychiatric: Denies anxiety, Denies depression - Endocrine Endocrine: Reports fatigue, Denies weight change - Hematologic/Lymphatic Comment: takes Xeralto - Allergic/Immunologic Allergic/Immunologic: Reports seasonal allergies Past Medical History Past Medical History: Atrial Fibrillation, Cancer, Heart Failure, GERD/Reflux, Hyperlipidemia, Hypertension, Myocardial Infarction ([place]), Thyroid Disorder Additional Past Medical History / Comment(s): hiatal hernia, arthritis, hx skin cancer, hx diverticulitis,pt states some family have genetic disorder that causes blood clots- she has not been dx with the disorder. Last Myocardial Infarction Date:: 04/2012 History of Any Multi-Drug Resistant Organisms: None Reported Past Surgical History: AICD, Bowel Resection, Breast Surgery, Cardiac Ablation, Cholecystectomy, Heart Catheterization, Hysterectomy, Orthopedic Surgery, Pacemaker, Tonsillectomy Additional Past Surgical History / Comment(s): breast reduction, arthroscopic rt knee, generator change 2013 Past Anesthesia/Blood Transfusion Reactions: No Reported Reaction Type of Cardiac Device: Permanent Pacemaker, AICD Device Placement Date:: 2006 Past Psychological History: No Psychological Hx Reported Smoking Status: Former smoker Past Alcohol Use History: Occasional Past Drug Use History: None Reported - Past Family History Mother Family Medical History: Cancer Additional Family Medical History / Comment(s): At the age 84 colon cancer Sister(s) Family Medical History: Cancer, Deep Vein Thrombosis (DVT) Son(s) Family Medical History: Deep Vein Thrombosis (DVT) Brother(s) Family Medical History: CVA/TIA, Deep Vein Thrombosis (DVT) Additional Family Medical History / Comment(s): She had 2 brothers with a history of stroke Father Family Medical History: Congestive Heart Failure (CHF) Medications and Allergies Home Medications Medication Instructions Recorded Confirmed Type Digoxin [Lanoxin] 125 mcg PO DAILY 11/30/13 10/20/17 History Furosemide [Lasix] 40 mg PO DAILY 11/30/13 10/20/17 History Rivaroxaban [Xarelto] 20 mg PO HS 11/30/13 10/20/17 History Spironolactone [Aldactone] 25 mg PO MOWEFR 11/30/13 10/20/17 History Temazepam 15 mg PO HS PRN 11/30/13 10/20/17 History Multivitamins, Thera [Multivitamin 1 tab PO HS 01/20/14 10/20/17 History (formulary)] Ubidecarenone [Coq-10] 100 mg PO HS 01/20/14 10/20/17 History Atorvastatin [Lipitor] 40 mg PO DAILY 10/20/17 10/20/17 History L.acidoph,Paracasei, B.lactis 1 tab PO HS 10/20/17 10/20/17 History [Probiotic] Levothyroxine Sodium [Synthroid] 75 mcg PO MOTUWETH 10/20/17 10/20/17 History Levothyroxine Sodium [Synthroid] 150 mcg PO SUFRSA 10/20/17 10/20/17 History Metoprolol Succinate (ER) [Toprol 100 mg PO BID 10/20/17 10/20/17 History XL] Losartan [Cozaar] 25 mg PO BID #60 tab 10/22/17 Rx Potassium Chloride ER [K-Dur 10] 10 meq PO DAILY #30 tab 10/22/17 Rx Allergies Allergy/AdvReac Type Severity Reaction Status Date / Time ibuprofen [From Motrin] AdvReac Swelling Verified 10/20/17 21:41 levofloxacin [From Levaquin] AdvReac Rash/Hives Verified 10/20/17 21:41 adhesive tape AdvReac blisters Uncoded 10/20/17 21:18 Surgical - Exam Vital Signs Temp Pulse 98.2 F 76 11/07/17 11:12 11/07/17 11:12 - General well developed, well nourished, no distress - Eyes normal ocular movement, no icteric - ENT normal pinna, normal nares, no congestion - Neck no masses, trachea midline - Respiratory normal respiratory effort, clear to auscultation - Cardiovascular pacemaker Rhythm: regular Heart Sounds: normal: S1, S2 - Abdomen Abdomen: soft, non tender, no guarding, no rigid, no rebound - Neurologic no disoriented, no combative - Musculoskeletal normal gait, normal posture - Psychiatric oriented to time, oriented to person, oriented to place, speech is normal, memory intact Breast examination: Right breast: Positional exam reveals changes related to a reduction mammoplasty but no dominant masses or nodules of concern examination of the nipple does not reveal any bloody discharge at this time Left breast: Multiple positional exam no dominant masses or nodules of concern scarring from reduction mammoplasty Bilateral axilla: No adenopathy of concern Assessment and Plan Assessment: Imp/plan: 1. Right breast bloody nipple discharge/patient is on sotalol toe 2. Status post reduction mammoplasty 3. Atrial fibrillation with paced maker/defibrillator 4. History of congestive heart failure 5. Arthritis 6. 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 Bilateral mammogram 2. At this time we will see the results of the mammogram there is nothing abnormal in patient is not having any bloody discharge at this time we will see her again in follow-up in 6 months time Patient notes any bloody discharge prior to that time would like to see her at that time Cc copy to Dr. Iam Thomas
== END | disposition home or self-care (01) ==
LOC: WWCWWP 11:04
PROVIDERS: ATTEND Surgery
DX: N64.59 Other signs and symptoms in breast (principal); Z53.9 Procedure and treatment not carried out, unspecified reason

== ENCOUNTER → 2017-11-18 | Outpatient (CLI) | payer MEDICARE ==
--- NOTE | 2017-11-19 07:54 | MM ---
Reason for exam: clinical finding. Last mammogram was performed 1 year ago. 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 Reductions of both breasts, 1996. Took estrogen for 3 years. Physical Findings: Nurse did not find any significant physical abnormalities on exam. MG 3D Diag Mammo W/Cad JOSEPH Bilateral CC and MLO view(s) were taken. Prior study comparison: November 28, 2016, bilateral MG 3d screening mammo w/cad. June 06, 2015, bilateral MG 3d screening mammo w/cad. There are scattered fibroglandular densities. There is chronic nodularity in the right breast. Pacemaker left chest. These results were verbally communicated with the patient and result sheet given to the patient on 11/18/17. ASSESSMENT: Benign, BI-RAD 2 RECOMMENDATION: Routine screening mammogram of both breasts in 1 year.
== END | disposition home or self-care (01) ==
LOC: RADMAMWWP 15:29
PROVIDERS: ATTEND Surgery
DX: N64.52 Nipple discharge (principal)
CPT/HCPCS: 77066; G0279; 77062

== ENCOUNTER 2018-01-19 00:34 | Inpatient (IN) | payer MEDICARE ==
[2018-01-19] MEDS ORDERED: SODIUM CHLORIDE 0.9% 500 ML IV STA (01:04)
[2018-01-19] MEDS ORDERED: ONDANSETRON 4 MG/2 ML VIAL IVP STA (01:04)
[2018-01-19] MEDS ORDERED: SODIUM CHLORIDE 0.9% 1,000 ML IV STA (01:04)
[2018-01-19] MEDS ORDERED: MORPHINE SULFATE 4 MG/ML SYRINGE IV STA (01:04)
[2018-01-19 01:48] LABS: Appearance,Urine Clear (Clear); Bilirubin,Urine Negative (Negative); Blood,Urine Negative (Negative); Color,Urine Light Yellow; Glucose,Urine (UA) Negative (Negative); Ketones,Urine Negative (Negative); Leukocyte Esterase,Urine Negative (Negative); Nitrite,Urine Negative (Negative); Protein,Urine Negative (Negative); Specific Gravity,Urine 1.003 (1.001-1.035); Urobilinogen,Urine <2.0 mg/dL (<2.0)
[2018-01-19 02:00] LABS: Albumin 4.4 g/dL (3.5-5.0); Calcium 9.9 mg/dL (8.4-10.2); Total Bilirubin 0.7 mg/dL (0.2-1.3); Total Protein 7.3 g/dL (6.3-8.2)
--- NOTE | 2018-01-19 02:01 | XR ---
EXAMINATION TYPE: XR chest 2V DATE OF EXAM: 01/19/2018 COMPARISON: 10/20/2017 HISTORY: Left side abdominal pain TECHNIQUE: Frontal and lateral views of the chest are obtained. FINDINGS: Heart is enlarged. There is no heart failure. There is left axillary pacemaker with the le ad tips in the right ventricle. Bony thorax is intact. I see no pleural effusion. IMPRESSION: Cardiomegaly. No heart failure. There is mild pulmonary congestion on old exam is not se en on today's exam.
--- NOTE | 2018-01-19 02:03 | XR ---
EXAMINATION TYPE: XR KUB DATE OF EXAM: 01/19/2018 COMPARISON: 02/24/2014 HISTORY: Abdominal pain TECHNIQUE: 2 views FINDINGS: 2 supine views were obtained there are clips from cholecystectomy. Bowel gas pattern is nor mal. There is no sign of intestinal obstruction or pneumoperitoneum. Fecal pattern is normal. There a re no pathologic calcifications over the kidneys. IMPRESSION: Nonacute abdomen. No change.
[2018-01-19 02:10] LABS: Basophils % (A) 0 %; Eosinophils # (A) 0.2 k/uL (0-0.7); Eosinophils % (A) 2 %; HCT 43.4 % (34.0-46.0); Lymphocytes # (A) 2.7 k/uL (1.0-4.8); Lymphocytes % (A) 23 %; MCH 30.8 pg (25.0-35.0); MCHC 34.5 g/dL (31.0-37.0); MCV 89.2 fL (80.0-100.0); Mean Platelet Volume 8.2; Monocytes % (A) 8 %; Neutrophils # (A) 7.7 k/uL (1.3-7.7); Neutrophils % (A) 65 %; Platelet Count 172 k/uL (150-450); RBC 4.87 m/uL (3.80-5.40); RDW 12.8 % (11.5-15.5); WBC 11.8 k/uL (3.8-10.6)
--- NOTE | 2018-01-19 04:14 | CT ---
EXAMINATION TYPE: CT abdomen pelvis w con DATE OF EXAM: 01/19/2018 COMPARISON: 02/24/2014 HISTORY: LUQ pain CT DLP: 790.50 mGycm Automated exposure control for dose reduction was used. TECHNIQUE: Helical acquisition of images was performed from the lung bases through the pelvis. CONTRAST: Performed without Oral Contrast and with IV Contrast, patient injected with 80 mL of Isovue 300. FINDINGS: Lung bases are clear of consolidation. There is mild subsegmental atelectasis at the left lung base. Heart is enlarged. There is no pericardial effusion. There is no pleural effusion. There are clips fr om cholecystectomy. Liver shows no evidence of a solid mass.. Spleen appears normal. There is no panc reatic mass. The bile ducts are not dilated. There is no adrenal mass. Kidneys show satisfactory contrast opacification. There is no hydronephrosi s. There is 3 cm cortical cyst lateral left kidney. There is no retroperitoneal adenopathy. There is no ascites. Bladder distends smoothly. There are a few sigmoid diverticula. There is no sign of diver ticulitis. Appendix is not definitely seen. There is no sign of appendicitis. There is spondylosis at L3-4 with disc space narrowing and sclerotic change of the endplates. There is no evidence of a pelv ic mass. There is 1 cm cyst in the anterior right lobe of the liver. IMPRESSION: SMALL HEPATIC CYST. LEFT RENAL CORTICAL CYST. NO DILATED DUCTS. THERE IS CLEARING OF THE 3 CM CYST IN THE PELVIS ON THE RIGHT SIDE COMPARED TO OLD EXAM. SIGMOID DIVERTICULOSIS WITHOUT DIVERTICULITIS. ST ABLE SUBSEGMENTAL ATELECTASIS AT THE LEFT LUNG BASE. CARDIOMEGALY.
[2018-01-19] MEDS ORDERED: MORPHINE SULFATE 2 MG/ML SYRINGE IVP STA (04:31)
--- NOTE | 2018-01-19 04:33 | ED ---
Abdominal Pain HPI - General Chief Complaint: Abdominal Pain Stated Complaint: abd pain Time Seen by Provider: 01/19/18 00:56 Source: patient Mode of arrival: wheelchair Limitations: no limitations - History of Present Illness Initial Comments: Every 5 years old female comes in with the epigastric area pain pain started today ago but got worse she is nauseous she stating pain is 10 over 10 initially she said pain was in the epigastric area. Some nausea no vomiting. Is more so than epigastric area and left upper quadrant area no frequency urgency dysuria no symptoms of TIA or CVA - Related Data Home Medications Medication Instructions Recorded Confirmed Digoxin [Lanoxin] 125 mcg PO DAILY 11/30/13 11/07/17 Furosemide [Lasix] 60 mg PO DAILY 11/30/13 11/07/17 Rivaroxaban [Xarelto] 20 mg PO HS 11/30/13 11/07/17 Spironolactone [Aldactone] 25 mg PO MOWEFR 11/30/13 11/07/17 Temazepam 15 mg PO HS PRN 11/30/13 11/07/17 Multivitamins, Thera [Multivitamin 1 tab PO HS 01/20/14 11/07/17 (formulary)] Ubidecarenone [Coq-10] 100 mg PO HS 01/20/14 11/07/17 Atorvastatin [Lipitor] 40 mg PO DAILY 10/20/17 11/07/17 L.acidoph,Paracasei, B.lactis 1 tab PO HS 10/20/17 11/07/17 [Probiotic] Levothyroxine Sodium [Synthroid] 75 mcg PO MOTUWETH 10/20/17 11/07/17 Levothyroxine Sodium [Synthroid] 150 mcg PO SUFRSA 10/20/17 11/07/17 Metoprolol Succinate (ER) [Toprol 100 mg PO BID 10/20/17 11/07/17 XL] Magnesium 200 mg PO DAILY 11/07/17 11/07/17 Previous Rx's Medication Instructions Recorded Losartan [Cozaar] 25 mg PO BID #60 tab 10/22/17 Potassium Chloride ER [K-Dur 10] 10 meq PO DAILY #30 tab 10/22/17 Allergies Allergy/AdvReac Type Severity Reaction Status Date / Time ibuprofen [From Motrin] AdvReac Swelling Verified 01/19/18 00:51 levofloxacin [From Levaquin] AdvReac Rash/Hives Verified 01/19/18 00:51 adhesive tape AdvReac blisters Uncoded 01/19/18 00:51 Review of Systems ROS Statement: Those systems with pertinent positive or pertinent negative responses have been documented in the HPI. ROS Other: All systems not noted in ROS Statement are negative. Past Medical History Past Medical History: Atrial Fibrillation, Cancer, Heart Failure, GERD/Reflux, Hyperlipidemia, Hypertension, Myocardial Infarction ([place]), Thyroid Disorder Additional Past Medical History / Comment(s): hiatal hernia, arthritis, hx skin cancer, hx diverticulitis,pt states some family have genetic disorder that causes blood clots- she has not been dx with the disorder. Last Myocardial Infarction Date:: 04/2012 History of Any Multi-Drug Resistant Organisms: None Reported Past Surgical History: AICD, Bowel Resection, Breast Surgery, Cardiac Ablation, Cholecystectomy, Heart Catheterization, Hysterectomy, Orthopedic Surgery, Pacemaker, Tonsillectomy Additional Past Surgical History / Comment(s): breast reduction, arthroscopic rt knee, generator change 2013 Past Anesthesia/Blood Transfusion Reactions: No Reported Reaction Type of Cardiac Device: Permanent Pacemaker, AICD Device Placement Date:: 2006 Past Psychological History: No Psychological Hx Reported Smoking Status: Former smoker Past Alcohol Use History: Occasional Past Drug Use History: None Reported - Past Family History Mother Family Medical History: Cancer Additional Family Medical History / Comment(s): At the age 84 colon cancer Sister(s) Family Medical History: Cancer, Deep Vein Thrombosis (DVT) Son(s) Family Medical History: Deep Vein Thrombosis (DVT) Brother(s) Family Medical History: CVA/TIA, Deep Vein Thrombosis (DVT) Additional Family Medical History / Comment(s): She had 2 brothers with a history of stroke Father Family Medical History: Congestive Heart Failure (CHF) General Exam - General Exam Comments Initial Comments: General: The patient is awake and alert, in no distress, and does not appear acutely ill. Skin: Skin is warm and dry and no rashes or lesions are noted. Eye: Pupils are equal, round and reactive to light, extra-ocular movements are intact; there is normal conjunctiva bilaterally. Ears, nose, mouth and throat: There are moist mucous membranes and no oral lesions. Neck: The neck is supple, there is no tenderness or JVD. Cardiovascular: There is a regular rate and rhythm. No murmur, rub or gallop is appreciated. Respiratory: To auscultation bilateral, no wheezing no rhonchi no distress respiratory rodriguez noticed Gastrointestinal: Tender in epigastric area and the left upper quadrant area. Back: There is no tenderness to palpation in the midline. There is no obvious deformity. Musculoskeletal: Normal ROM, no tenderness, There is no pedal edema. There is no calf tenderness or swelling. No cords were appreciated. Neurological: CN II-XII intact, Cranial nerves III through XII are intact. There are no obvious motor or sensory deficits. Coordination appears grossly intact. Speech is normal. Psychiatric: Cooperative, appropriate mood & affect, normal judgment. Limitations: no limitations Course Vital Signs 01/19/18 00:50 Temperature 98 F Pulse Rate 78 Respiratory 18 Rate Blood Pressure 101/56 O2 Sat by Pulse 98 Oximetry Is reassessed at term 4:15 AM pain is still pretty bad labs are reviewed, lipase is 380 3E d-dimer is negative and chest x-ray shows some atelectasis urinalysis is fine him CT of the abdomen was done Medical Decision Making - Lab Data Result diagrams: 01/19/18 01:19 01/19/18 01:19 Lab Results 01/19/18 01/19/18 01/19/18 Range/Units 01:19 01:19 01:19 WBC 11.8 H (3.8-10.6) k/uL RBC 4.87 (3.80-5.40) m/uL Hgb 15.0 (11.4-16.0) gm/dL Hct 43.4 (34.0-46.0) % MCV 89.2 (80.0-100.0) fL MCH 30.8 (25.0-35.0) pg MCHC 34.5 (31.0-37.0) g/dL RDW 12.8 (11.5-15.5) % Plt Count 172 (150-450) k/uL Neutrophils % 65 % Lymphocytes % 23 % Monocytes % 8 % Eosinophils % 2 % Basophils % 0 % Neutrophils # 7.7 (1.3-7.7) k/uL Lymphocytes # 2.7 (1.0-4.8) k/uL Monocytes # 1.0 (0-1.0) k/uL Eosinophils # 0.2 (0-0.7) k/uL Basophils # 0.0 (0-0.2) k/uL D-Dimer (<0.60) mg/L FEU Sodium 140 (137-145) mmol/L Potassium 4.0 (3.5-5.1) mmol/L Chloride 102 (98-107) mmol/L Carbon Dioxide 28 (22-30) mmol/L Anion Gap 10 mmol/L BUN 28 H (7-17) mg/dL Creatinine 1.00 (0.52-1.04) mg/dL Est GFR (CKD-EPI)AfAm 64 (>60 ml/min/1.73 sqM) Est GFR (CKD-EPI)NonAf 56 (>60 ml/min/1.73 sqM) Glucose 116 H (74-99) mg/dL Calcium 9.9 (8.4-10.2) mg/dL Total Bilirubin 0.7 (0.2-1.3) mg/dL AST 37 H (14-36) U/L ALT 45 (9-52) U/L Alkaline Phosphatase 60 (38-126) U/L Troponin I (0.000-0.034) ng/mL Total Protein 7.3 (6.3-8.2) g/dL Albumin 4.4 (3.5-5.0) g/dL Amylase 62 (30-110) U/L Lipase 383 H (23-300) U/L Urine Color Light Yellow Urine Appearance Clear (Clear) Urine pH 6.0 (5.0-8.0) Ur Specific [place] 1.003 (1.001-1.035) Urine Protein Negative (Negative) Urine Glucose (UA) Negative (Negative) Urine Ketones Negative (Negative) Urine Blood Negative (Negative) Urine Nitrite Negative (Negative) Urine Bilirubin Negative (Negative) Urine Urobilinogen <2.0 (<2.0) mg/dL Ur Leukocyte Esterase Negative (Negative) 01/19/18 01/19/18 Range/Units 01:19 01:19 WBC (3.8-10.6) k/uL RBC (3.80-5.40) m/uL Hgb (11.4-16.0) gm/dL Hct (34.0-46.0) % MCV (80.0-100.0) fL MCH (25.0-35.0) pg MCHC (31.0-37.0) g/dL RDW (11.5-15.5) % Plt Count (150-450) k/uL Neutrophils % % Lymphocytes % % Monocytes % % Eosinophils % % Basophils % % Neutrophils # (1.3-7.7) k/uL Lymphocytes # (1.0-4.8) k/uL Monocytes # (0-1.0) k/uL Eosinophils # (0-0.7) k/uL Basophils # (0-0.2) k/uL D-Dimer 0.34 (<0.60) mg/L FEU Sodium (137-145) mmol/L Potassium (3.5-5.1) mmol/L Chloride (98-107) mmol/L Carbon Dioxide (22-30) mmol/L Anion Gap mmol/L BUN (7-17) mg/dL Creatinine (0.52-1.04) mg/dL Est GFR (CKD-EPI)AfAm (>60 ml/min/1.73 sqM) Est GFR (CKD-EPI)NonAf (>60 ml/min/1.73 sqM) Glucose (74-99) mg/dL Calcium (8.4-10.2) mg/dL Total Bilirubin (0.2-1.3) mg/dL AST (14-36) U/L ALT (9-52) U/L Alkaline Phosphatase (38-126) U/L Troponin I 0.039 H* (0.000-0.034) ng/mL Total Protein (6.3-8.2) g/dL Albumin (3.5-5.0) g/dL Amylase (30-110) U/L Lipase (23-300) U/L Urine Color Urine Appearance (Clear) Urine pH (5.0-8.0) Ur Specific [place] (1.001-1.035) Urine Protein (Negative) Urine Glucose (UA) (Negative) Urine Ketones (Negative) Urine Blood (Negative) Urine Nitrite (Negative) Urine Bilirubin (Negative) Urine Urobilinogen (<2.0) mg/dL Ur Leukocyte Esterase (Negative) Critical Care Time Total Critical Care Time: 45 Critical Care Time: History pain was in the epigastric area and left upper quadrant area after I did the CT abdomen and reassessed her at that point she was saying pain is going towards her chest and that time troponin EKG was ordered EKG is paced troponin is elevated will be heparinized be admitted to Dr. Gonsales service with a cardiology consult Disposition Clinical Impression: Pleuritic chest pain, Pancreatitis, Epigastric pain Disposition: ADMITTED IP TO THIS HOSP Condition: Good Referrals: Iam Schwartz MD [Primary Care Provider] - 1-2 days
[2018-01-19] MEDS ORDERED: MORPHINE SULFATE 4 MG/ML SYRINGE IV PRN (05:03)
[2018-01-19] MEDS ORDERED: HEPARIN SODIUM,PORCINE 5,000 UNIT/ML 1 ML VIAL IV ONE (05:03)
[2018-01-19] MEDS ORDERED: NITROGLYCERIN SL TABS 0.4 MG TAB SUBLINGUAL PRN (05:03)
[2018-01-19] MEDS ORDERED: TEMAZEPAM 15 MG CAP PO PRN (05:07)
[2018-01-19] MEDS ORDERED: HEPARIN SOD,PORK IN 0.45% NACL 25,000 UNIT in 0.45% NACL 1 500ML.BAG IV SCH (05:15)
[2018-01-19] MEDS ORDERED: SPIRONOLACTONE 25 MG TAB PO SCH (05:15)
[2018-01-19 06:28] VITALS: BMI 30.2
[2018-01-19] MEDS ORDERED: LEVOTHYROXINE 75 MCG TAB PO SCH (06:30)
[2018-01-19 07:12] LABS: Creatine Kinase MB 0.7 ng/mL (0.0-2.4)
[2018-01-19 07:13] LABS: Troponin I 0.04 ng/mL (0.000-0.034)
[2018-01-19] MEDS ORDERED: DIGOXIN 125 MCG TAB PO SCH (09:00)
[2018-01-19] MEDS ORDERED: MAGNESIUM OXIDE 400 MG TAB PO SCH (09:00)
[2018-01-19] MEDS ORDERED: FUROSEMIDE 20 MG TAB PO SCH (09:00)
[2018-01-19] MEDS ORDERED: LOSARTAN 25 MG TAB PO SCH (09:00)
[2018-01-19] MEDS ORDERED: POTASSIUM CHLORIDE ER 10 MEQ TAB.ER.PRT PO SCH (09:00)
[2018-01-19] MEDS ORDERED: METOPROLOL SUCCINATE (ER) 100 MG TAB.ER.24H PO SCH (09:00)
[2018-01-19] MEDS ORDERED: ATORVASTATIN 40 MG TAB PO SCH (09:00)
--- NOTE | 2018-01-19 09:43 | P.CRDCN ---
History of Present Illness Consult date: 01/19/18 Requesting physician: Kostas Kunz Consult reason: chest pain Chief complaint: Chest pain History of present illness: This is a pleasant 77-year-old female who follows regularly with Dr. Reynolds in the office. Patient has a known history of hypertension, hypothyroidism, hyperlipidemia, chronic persistent atrial fibrillation on Xarelto for anticoagulation, prior radiofrequency ablation, nonischemic cardiomyopathy with prior AICD implantation, patient did undergo cardiac catheterization in 2011 which revealed a 50% lesion in the LAD, proximal circumflex lesion of 50%, 40% RCA lesion which is chronic and stable. Patient also has history of ventricular arrhythmia in the past. History also of a diverticulitis and prior nicotine dependence. Patient presents to the hospital on this occasion with symptoms of pain in her left lower rib area and in the abdomen just below the ribs on that side. Patient states that the symptoms started up a couple of days ago when she was hoping to wait until Friday to see her primary care doctor however because they became so severe she came into the hospital for further evaluation. Patient also states that on Friday of last week she had a black tarry stool, the day following she states she had a dark green stool, and since then her bowel movements have normalized. Chest x-ray performed on admission showed cardiomegaly with no congestive heart failure. There is mild pulmonary congestion on old exam not seen on this exam. KUB was performed which was a nonacute abdomen. CAT scan of the abdomen and pelvis was also performed which revealed small hepatic cyst. Left renal cortical cyst. No dilated ducts. Clearing of a 3 cm cyst in the pelvis on the right compared to old exam. Sigmoid diverticulosis without diverticulitis. Stable subsegmental atelectasis in the left lung base and cardiomegaly. EKG on admission showed a ventricular paced rhythm with underlying atrial fibrillation. I pressure on admission 101/56, heart rate in the 70s, 98% on room air. White blood cell count 11.8, hemoglobin 15, platelet count 172. D- dimer 0.34. Sodium 140, potassium 4.0, BUN 28, creatinine 1.0. Troponins 0.039 , 0.040. Patient was also noted on her admission in September of this year to have abnormal troponins in the same range. At the time of my examination this morning, patient has significant pain in the left lower rib area, worsens with taking a deep breath or on palpation of that area. She does have some mild tenderness in the abdominal region underneath that rib area. Eyes any chest discomfort. Past Medical History Past Medical History: Atrial Fibrillation, Cancer, Heart Failure, GERD/Reflux, Hyperlipidemia, Hypertension, Myocardial Infarction ([place]), Thyroid Disorder Additional Past Medical History / Comment(s): hiatal hernia, arthritis, hx skin cancer, hx diverticulitis,pt states some family have genetic disorder that causes blood clots- she has not been dx with the disorder. Last Myocardial Infarction Date:: 04/2012 History of Any Multi-Drug Resistant Organisms: None Reported Past Surgical History: AICD, Bowel Resection, Breast Surgery, Cardiac Ablation, Cholecystectomy, Heart Catheterization, Hysterectomy, Orthopedic Surgery, Pacemaker, Tonsillectomy Additional Past Surgical History / Comment(s): breast reduction, arthroscopic rt knee, generator change 2013 Past Anesthesia/Blood Transfusion Reactions: No Reported Reaction Type of Cardiac Device: Permanent Pacemaker, AICD Device Placement Date:: 2006 Past Psychological History: No Psychological Hx Reported Smoking Status: Former smoker Past Alcohol Use History: Occasional Past Drug Use History: None Reported - Past Family History Mother Family Medical History: Cancer Additional Family Medical History / Comment(s): At the age 84 colon cancer Sister(s) Family Medical History: Cancer, Deep Vein Thrombosis (DVT) Son(s) Family Medical History: Deep Vein Thrombosis (DVT) Brother(s) Family Medical History: CVA/TIA, Deep Vein Thrombosis (DVT) Additional Family Medical History / Comment(s): She had 2 brothers with a history of stroke Father Family Medical History: Congestive Heart Failure (CHF) Medications and Allergies Home Medications Medication Instructions Recorded Confirmed Type Digoxin [Lanoxin] 125 mcg PO DAILY 11/30/13 01/19/18 History Furosemide [Lasix] 60 mg PO DAILY 11/30/13 01/19/18 History Rivaroxaban [Xarelto] 20 mg PO HS 11/30/13 01/19/18 History Spironolactone [Aldactone] 25 mg PO DAILY 11/30/13 01/19/18 History Multivitamins, Thera [Multivitamin 1 tab PO HS 01/20/14 01/19/18 History (formulary)] Ubidecarenone [Coq-10] 100 mg PO HS 01/20/14 01/19/18 History Atorvastatin [Lipitor] 40 mg PO DAILY 10/20/17 01/19/18 History L.acidoph,Paracasei, B.lactis 1 tab PO HS 10/20/17 01/19/18 History [Probiotic] Levothyroxine Sodium [Synthroid] 75 mcg PO MOTUWETH 10/20/17 01/19/18 History Levothyroxine Sodium [Synthroid] 150 mcg PO SUFRSA 10/20/17 01/19/18 History Metoprolol Succinate (ER) [Toprol 200 mg PO DAILY 10/20/17 01/19/18 History XL] Magnesium 200 mg PO HS 11/07/17 01/19/18 History Potassium Gluconate 99 mg PO HS 01/19/18 01/19/18 History Sacubitril/Valsartan [Entresto 24 1 tab PO BID 01/19/18 01/19/18 History mg-26 mg Tablet] Allergies Allergy/AdvReac Type Severity Reaction Status Date / Time ibuprofen [From Motrin] AdvReac Swelling Verified 01/19/18 08:37 levofloxacin [From Levaquin] AdvReac Rash/Hives Verified 01/19/18 08:37 adhesive tape AdvReac blisters Uncoded 01/19/18 00:51 Physical Exam Vitals: Vital Signs Temp Pulse Pulse Resp BP BP Pulse Ox 01/19/18 06:15 97.3 F L 66 18 107/57 97 01/19/18 05:31 66 17 116/55 96 01/19/18 00:50 98 F 78 18 101/56 98 Intake and Output 01/18/18 01/19/18 01/19/18 22:59 06:59 14:59 Intake Total 100 Balance 100 Intake: Intake, IV Titration 100 Amount Sodium Chloride 0.9% 1, 100 000 ml @ 100 mls/hr IV . Q10H STA Rx#:[id number] Other: Weight 77.5 kg PHYSICAL EXAMINATION: GENERAL: 77-year-old female in no acute distress at the time of my examination HEENT: Head is atraumatic, normocephalic. Pupils equal, round. Sclera anicteric. Conjunctiva are clear. Mucous membranes of the mouth are moist. Neck is supple. There is no elevated jugular venous pressure.] bruit is heard. HEART EXAMINATION: Heart S1, S2 normal. No murmur or gallop heard. CHEST EXAMINATION:[ Lungs are clear to auscultation and precussion. Positive left rib pain on palpation and with deep breathing ABDOMEN: Soft, nontender. Bowel sounds are heard. No organomegaly noted. EXTREMITIES: 2+ peripheral pulses with no evidence of peripheral edema and no calf tenderness noted. NEUROLOGIC patient is awake, alert and oriented ?-3. . Results 01/19/18 01:19 01/19/18 01:19 Cardiac Enzymes 01/19/18 01/19/18 01/19/18 Range/Units 01:19 01:19 06:17 AST 37 H (14-36) U/L CK-MB (CK-2) 0.7 (0.0-2.4) ng/mL Troponin I 0.039 H* 0.040 H* (0.000-0.034) ng/mL CBC 01/19/18 Range/Units 01:19 WBC 11.8 H (3.8-10.6) k/uL RBC 4.87 (3.80-5.40) m/uL Hgb 15.0 (11.4-16.0) gm/dL Hct 43.4 (34.0-46.0) % Plt Count 172 (150-450) k/uL Comprehensive Metabolic Panel 01/19/18 Range/Units 01:19 Sodium 140 (137-145) mmol/L Potassium 4.0 (3.5-5.1) mmol/L Chloride 102 (98-107) mmol/L Carbon Dioxide 28 (22-30) mmol/L BUN 28 H (7-17) mg/dL Creatinine 1.00 (0.52-1.04) mg/dL Glucose 116 H (74-99) mg/dL Calcium 9.9 (8.4-10.2) mg/dL AST 37 H (14-36) U/L ALT 45 (9-52) U/L Alkaline Phosphatase 60 (38-126) U/L Total Protein 7.3 (6.3-8.2) g/dL Albumin 4.4 (3.5-5.0) g/dL Current Medications Generic Name Dose Route Start Last Admin Trade Name Freq PRN Reason Stop Dose Admin Aspirin 325 mg 01/20/18 09:00 Aspirin PO DAILY REYNA Atorvastatin Calcium 40 mg 01/19/18 09:00 Lipitor PO DAILY [facility] Digoxin 125 mcg 01/19/18 09:00 Lanoxin PO DAILY [facility] Furosemide 60 mg 01/19/18 09:00 Lasix PO DAILY [facility] Sodium Chloride 1,000 mls @ 100 mls/hr 01/19/18 01:04 01/19/18 01:30 Saline 0.9% IV 01/19/18 11:03 100 mls/hr .Q10H STA Administration Levothyroxine Sodium 75 mcg 01/19/18 06:30 01/19/18 06:41 Synthroid PO 75 mcg MoTuWeTh@0630 [facility] Administration Levothyroxine Sodium 150 mcg 01/23/18 06:30 Synthroid PO SuFrSa@0630 [facility] Losartan Potassium 25 mg 01/19/18 09:00 Cozaar PO BID [facility] Magnesium Oxide 200 mg 01/19/18 09:00 Mag-Ox PO DAILY [facility] Metoprolol Succinate 100 mg 01/19/18 09:00 Toprol Xl PO BID [facility] Morphine Sulfate 4 mg 01/19/18 05:03 Morphine Sulfate (Inj) IV Q5M PRN Chest Pain Multivitamins 1 each 01/19/18 12:00 Theragran PO DAILY@1200 [facility] Nitroglycerin 0.4 mg 01/19/18 05:03 Nitrostat SUBLINGUAL Q5M PRN Chest Pain Potassium Chloride 10 meq 01/19/18 09:00 K-Dur 10 PO DAILY [facility] Rivaroxaban 20 mg 01/19/18 21:00 Xarelto PO HS [facility] Spironolactone 25 mg 01/19/18 05:15 01/19/18 06:41 Aldactone PO 25 mg MOWEFR [facility] Administration Temazepam 15 mg 01/19/18 05:07 Restoril PO HS PRN Insomnia Intake and Output 01/18/18 01/19/18 01/19/18 22:59 06:59 14:59 Intake Total 100 Balance 100 Intake: Intake, IV Titration 100 Amount Sodium Chloride 0.9% 1, 100 000 ml @ 100 mls/hr IV . Q10H STA Rx#:[id number] Other: Weight 77.5 kg 01/19/18 01:19 01/19/18 01:19 EKG Interpretations (text) EKG shows a ventricular paced rhythm with underlying atrial fibrillation Assessment and Plan Plan: Assessment and plan #1 left rib pain with associated abdominal discomfort in that region, pleuritic in nature. Atypical for ACS. EKG shows a ventricular paced rhythm with underlying atrial fibrillation. Troponin 0.039, 0.040. Patient was noted on prior admissions to have troponins in the same range #2 nonischemic cardiomyopathy with prior AICD implantation. Patient has had a cardiac catheterization in 2011 which revealed a 50% LAD lesion, 50% circumflex lesion, 40% RCA lesion which is chronic and stable. Most recent echocardiogram with Doppler study was performed in September of this year which revealed an ejection fraction of 20-25%. #3 history of ventricular arrhythmia #4 chronic persistent atrial fibrillation on Xarelto for anticoagulation #5 hypertension #6 hypothyroidism #7 hyperlipidemia #8 diverticulitis, patient complains that she did have a dark tarry stool on Friday of last week, hemoglobin stable. Plan We will obtain a stool for occult blood. The patient has been noted to have abnormal troponins in this range in the past, presentation not suggestive of acute coronary syndrome. We will decrease the patient's aspirin to 81 mg daily , continue her current medications as she was taking at home. Further recommendations to follow. DNP note has been reviewed, I agree with a documented findings and plan of care. Patient was seen and examined.
[2018-01-19] MEDS ORDERED: LIDOCAINE 5% PATCH TOPICAL SCH (10:00)
[2018-01-19 10:43] VITALS: RESP 20
[2018-01-19 11:41] VITALS: BP 98/52; PULSE 62; TEMP 96.7
[2018-01-19] MEDS ORDERED: MULTIVITAMINS, THERA 1 EACH TAB PO SCH (12:00)
--- NOTE | 2018-01-19 13:02 | XR ---
EXAMINATION TYPE: XR ribs LT DATE OF EXAM: 01/19/2018 COMPARISON: NONE HISTORY: Pain TECHNIQUE: 4 views submitted FINDINGS: Cardiac device noted. The visualized ribs appear intact. The heart appears to be enlarged. Mild diffuse osteopenia. Mild hy pertrophic change AC joint. IMPRESSION: No acute displaced rib fracture.
[2018-01-19 14:06] LABS: Creatine Kinase MB 0.8 ng/mL (0.0-2.4); Troponin I 0.028 ng/mL (0.000-0.034)
--- NOTE | 2018-01-19 15:21 | P.HPIM ---
History of Present Illness H&P Date: 01/19/18 Chief Complaint: Left rib pain HISTORY AND PHYSICAL AND DISCHARGE SUMMARY: This is a 77-year-old female patient of Dr. Schwartz, Dr. Mireles with past medical history of hypertension, hypothyroidism, hyperlipidemia, chronic persistent atrial fibrillation on Xarelto for anticoagulation, prior radiofrequency ablation, nonischemic cardiomyopathy with prior AICD implantation , patient did undergo cardiac catheterization in 2011 which revealed a 50% lesion in the LAD, proximal circumflex lesion of 50%, 40% RCA lesion which is chronic and stable. Patient also has history of ventricular arrhythmia in the past. History also of a diverticulitis and prior nicotine dependence. Patient states that she was eating a lot of cherries and then on Friday she had a black pasty stools most likely related to the fruits. On Friday and Friday she continued to have pasty stool but it was colored green. She denies any epigastric pain, no chest pain. She denies any shortness of breath, rash, kidney stones, back pain. She denies any change in the color of her urine. She does have pain to her left lower ribs with deep inspiration. She has pain to the lower left ribs with any movement. She denies any known injury or fall. She recently had medication changes done by Dr. Mireles in October and she was taken off Valsartan and put on Entresto. Patient came in to [facility] emergency center for evaluation. Chest x-ray showed cardiomegaly with no heart failure. Mild pulmonary congestion on old exam not seen on this exam. KUB was nonacute abdomen. CAT scan of the abdomen and pelvis revealed small hepatic cyst, left renal cortical cysts, no dilated ducts, clearing of 3 cm cyst in the pelvis on the right compared to old exam, sigmoid diverticulosis without diverticulitis area stable subsegmental atelectasis in the left lung base and cardiomegaly. EKG was a ventricular paced rhythm with underlying atrial fibrillation. Her initial vital signs were stable and pulse ox is 98% on room air, hemoglobin at 15, d-dimer was 0.34, electrolytes within normal limits creatinine to 1. Troponins were 0.039, 0.040 and 0.028. Lipase was 383. Urinalysis was negative for infection or blood. Patient was admitted to the intensive care unit and cardiology consult requested. Cardiology has requested stool for occult blood. Acute coronary syndrome has been ruled out. We have ordered x-rays of the left ribs that failed to reveal any acute fracture. Lidocaine patch has been ordered for the patient and she will be discharged home today in stable condition. Discharge Medication List Digoxin [Lanoxin] 125 mcg PO DAILY 11/30/13 [History] Furosemide [Lasix] 60 mg PO DAILY 11/30/13 [History] Rivaroxaban [Xarelto] 20 mg PO HS 11/30/13 [History] Spironolactone [Aldactone] 25 mg PO DAILY 11/30/13 [History] Multivitamins, Thera [Multivitamin (formulary)] 1 tab PO HS 01/20/14 [History] Ubidecarenone [Coq-10] 100 mg PO HS 01/20/14 [History] Atorvastatin [Lipitor] 40 mg PO DAILY 10/20/17 [History] L.acidoph,Paracasei, B.lactis [Probiotic] 1 tab PO HS 10/20/17 [History] Levothyroxine Sodium [Synthroid] 75 mcg PO MOTUWETH 10/20/17 [History] Levothyroxine Sodium [Synthroid] 150 mcg PO SUFRSA 10/20/17 [History] Metoprolol Succinate (ER) [Toprol XL] 200 mg PO DAILY 10/20/17 [History] Magnesium 200 mg PO HS 11/07/17 [History] Aspirin 81 mg PO DAILY chew 01/19/18 [Rx] Lidocaine 5% Patch [Lidoderm 5% Patch] 1 patch TOPICAL DAILY #30 patch 01/19/18 [Rx] Potassium Gluconate 99 mg PO HS 01/19/18 [History] Sacubitril/Valsartan [Entresto 24 mg-26 mg Tablet] 1 tab PO BID 01/19/18 [ History] Review of Systems All systems: negative Constitutional: Denies chills, Denies fatigue, Denies fever, Denies lethargy, Denies malaise, Denies poor appetite, Denies sweats, Denies weakness, Denies weight loss Eyes: denies blurred vision, denies pain Ears, nose, mouth and throat: Denies dental pain, Denies dysphagia, Denies headache, Denies mouth pain, Denies sore throat, Denies vertigo Cardiovascular: Denies chest pain, Denies decreased exercise tolerance, Denies dyspnea on exertion, Denies high blood pressure, Denies leg edema, Denies lightheadedness, Denies palpitations, Denies paroxysmal nocturnal dyspnea, Denies shortness of breath, Denies syncope Respiratory: Denies cough Gastrointestinal: Denies abdominal pain, Denies diarrhea, Denies nausea, Denies vomiting Genitourinary: Denies dysuria, Denies hematuria Musculoskeletal: Denies myalgias Integumentary: Denies pruritus, Denies rash Neurological: Denies numbness, Denies weakness Psychiatric: Denies anxiety, Denies depression Endocrine: Denies fatigue, Denies weight change Past Medical History Past Medical History: Atrial Fibrillation, Cancer, Heart Failure, GERD/Reflux, Hyperlipidemia, Hypertension, Myocardial Infarction ([place]), Thyroid Disorder Additional Past Medical History / Comment(s): hiatal hernia, arthritis, hx skin cancer, hx diverticulitis,pt states some family have genetic disorder that causes blood clots- she has not been dx with the disorder. Last Myocardial Infarction Date:: 04/2012 History of Any Multi-Drug Resistant Organisms: None Reported Past Surgical History: AICD, Bowel Resection, Breast Surgery, Cardiac Ablation, Cholecystectomy, Heart Catheterization, Hysterectomy, Orthopedic Surgery, Pacemaker, Tonsillectomy Additional Past Surgical History / Comment(s): breast reduction, arthroscopic rt knee, generator change 2013 Past Anesthesia/Blood Transfusion Reactions: No Reported Reaction Type of Cardiac Device: Permanent Pacemaker, AICD Device Placement Date:: 2006 Past Psychological History: No Psychological Hx Reported Smoking Status: Former smoker Past Alcohol Use History: Occasional Past Drug Use History: None Reported - Past Family History Mother Family Medical History: Cancer Additional Family Medical History / Comment(s): At the age 84 colon cancer Sister(s) Family Medical History: Cancer, Deep Vein Thrombosis (DVT) Son(s) Family Medical History: Deep Vein Thrombosis (DVT) Brother(s) Family Medical History: CVA/TIA, Deep Vein Thrombosis (DVT) Additional Family Medical History / Comment(s): She had 2 brothers with a history of stroke Father Family Medical History: Congestive Heart Failure (CHF) Medications and Allergies Home Medications Medication Instructions Recorded Confirmed Type Digoxin [Lanoxin] 125 mcg PO DAILY 11/30/13 01/19/18 History Furosemide [Lasix] 60 mg PO DAILY 11/30/13 01/19/18 History Rivaroxaban [Xarelto] 20 mg PO HS 11/30/13 01/19/18 History Spironolactone [Aldactone] 25 mg PO DAILY 11/30/13 01/19/18 History Multivitamins, Thera [Multivitamin 1 tab PO HS 01/20/14 01/19/18 History (formulary)] Ubidecarenone [Coq-10] 100 mg PO HS 01/20/14 01/19/18 History Atorvastatin [Lipitor] 40 mg PO DAILY 10/20/17 01/19/18 History L.acidoph,Paracasei, B.lactis 1 tab PO HS 10/20/17 01/19/18 History [Probiotic] Levothyroxine Sodium [Synthroid] 75 mcg PO MOTUWETH 10/20/17 01/19/18 History Levothyroxine Sodium [Synthroid] 150 mcg PO SUFRSA 10/20/17 01/19/18 History Metoprolol Succinate (ER) [Toprol 200 mg PO DAILY 10/20/17 01/19/18 History XL] Magnesium 200 mg PO HS 11/07/17 01/19/18 History Aspirin 81 mg PO DAILY chew 01/19/18 Rx Lidocaine 5% Patch [Lidoderm 5% 1 patch TOPICAL DAILY #30 patch 01/19/18 Rx Patch] Potassium Gluconate 99 mg PO HS 01/19/18 01/19/18 History Sacubitril/Valsartan [Entresto 24 1 tab PO BID 01/19/18 01/19/18 History mg-26 mg Tablet] Allergies Allergy/AdvReac Type Severity Reaction Status Date / Time ibuprofen [From Motrin] AdvReac Swelling Verified 01/19/18 08:37 levofloxacin [From Levaquin] AdvReac Rash/Hives Verified 01/19/18 08:37 adhesive tape AdvReac blisters Uncoded 01/19/18 00:51 Physical Exam Vitals: Vital Signs Temp Pulse Pulse Resp BP BP Pulse Ox 01/19/18 06:15 97.3 F L 66 18 107/57 97 01/19/18 05:31 66 17 116/55 96 01/19/18 00:50 98 F 78 18 101/56 98 Intake and Output 01/18/18 01/19/18 01/19/18 22:59 06:59 14:59 Intake Total 100 Balance 100 Intake: Intake, IV Titration 100 Amount Sodium Chloride 0.9% 1, 100 000 ml @ 100 mls/hr IV . Q10H STA Rx#:[id number] Other: Weight 77.5 kg Gen: This is a 77-year-old female. She is sitting up in bed at the edge of the bed and appears to be comfortable and in no acute distress. Patient is known to have discomfort with any movement. HEENT: Head is atraumatic, normocephalic. Pupils equal, round. Sclerae is anicteric. NECK: Supple. No JVD. No lymphadenopathy. No thyromegaly. LUNGS: Clear to auscultation. No wheezes or rhonchi. No intercostal retractions. HEART: Regular rate and rhythm. No murmur. ABDOMEN: Soft. Bowel sounds are present. No masses. No tenderness. EXTREMITIES: No pedal edema. No calf tenderness. NEUROLOGICAL: Patient is awake, alert and oriented x3. Cranial nerves 2 through 12 are grossly intact. Results CBC & Chem 7: 01/19/18 01:19 01/19/18 01:19 Labs: Abnormal Lab Results - Last 24 Hours (Table) 01/19/18 01/19/18 01/19/18 Range/Units 01:19 01:19 01:19 WBC 11.8 H (3.8-10.6) k/uL BUN 28 H (7-17) mg/dL Glucose 116 H (74-99) mg/dL AST 37 H (14-36) U/L Troponin I 0.039 H* (0.000-0.034) ng/mL Lipase 383 H (23-300) U/L 01/19/18 Range/Units 06:17 WBC (3.8-10.6) k/uL BUN (7-17) mg/dL Glucose (74-99) mg/dL AST (14-36) U/L Troponin I 0.040 H* (0.000-0.034) ng/mL Lipase (23-300) U/L Thrombosis Risk Factor Assmnt - Choose All That Apply Any of the Below Risk Factors Present?: Yes Other Risk Factors: Yes Each Risk Factor Represents 3 Points: Age 75 years or older, Family history of DVT/PE Thrombosis Risk Factor Assessment Total Risk Factor Score: 6 Thrombosis Risk Factor Assessment Level: High Risk Assessment and Plan Plan: 1. Left lower rib pain, acute coronary syndrome ruled out. Cardiology consult appreciated. 2. History of nonischemic cardiomyopathy with AICD implantation. 3. Chronic atrial fibrillation status post pacemaker. 4. History of ventricular arrhythmia. 5. Hypertension. 6. Hyperlipidemia. 7. Hypothyroidism. Patient placed as observation status. Discharge plan: Return home Impression and plan of care have been directed as dictated by the signing physician. Merlene Bunch nurse practitioner acting as scribe for signing physician.
[2018-01-19] MEDS ORDERED: RIVAROXABAN 20 MG TAB PO SCH (21:00)
[2018-01-19] MEDS ORDERED: NON-FORMULARY DRUG (Ubidecarenone [Coq-10] 100 MG) PO SCH (21:00)
[2018-01-20] MEDS ORDERED: ASPIRIN 81 MG PO SCH (09:00)
[2018-01-20] MEDS ORDERED: ASPIRIN 325 MG TAB PO SCH (09:00)
[2018-01-23] MEDS ORDERED: LEVOTHYROXINE 75 MCG TAB PO SCH (06:30)
== END 2018-01-19 16:20 | disposition home or self-care (01) | DRG 204 ==
LOC: EC 00:34 → 6SEL 05:08
PROVIDERS: ADMIT Internal Medicine; ATTEND Internal Medicine
DX: R07.81 Pleurodynia (principal); I42.9 Cardiomyopathy, unspecified; J98.11 Atelectasis; K57.32 Diverticulitis of large intestine without perforation or abscess without bleeding; K44.9 Diaphragmatic hernia without obstruction or gangrene; M19.90 Unspecified osteoarthritis, unspecified site; E03.9 Hypothyroidism, unspecified; E78.5 Hyperlipidemia, unspecified; I11.0 Hypertensive heart disease with heart failure; I25.2 Old myocardial infarction; I48.2 Chronic atrial fibrillation; K21.9 Gastro-esophageal reflux disease without esophagitis; K76.89 Other specified diseases of liver; I50.9 Heart failure, unspecified; I25.10 Atherosclerotic heart disease of native coronary artery without angina pectoris; M85.80 Other specified disorders of bone density and structure, unspecified site; Z79.01 Long term (current) use of anticoagulants; Z79.82 Long term (current) use of aspirin; Z79.899 Other long term (current) drug therapy; Z79.890 Hormone replacement therapy; Z88.6 Allergy status to analgesic agent; Z88.1 Allergy status to other antibiotic agents; Z91.048 Other nonmedicinal substance allergy status; Z85.828 Personal history of other malignant neoplasm of skin; Z95.810 Presence of automatic (implantable) cardiac defibrillator; Z90.710 Acquired absence of both cervix and uterus; Z87.891 Personal history of nicotine dependence; Z90.49 Acquired absence of other specified parts of digestive tract; Z82.49 Family history of ischemic heart disease and other diseases of the circulatory system; Z80.0 Family history of malignant neoplasm of digestive organs; Z82.3 Family history of stroke
CPT/HCPCS: 36415; 71046; 74018; 74177; 80053; 81003; 82150; 82550; 82553; 83690; 84484; 85025; 85379; 93005; 96361; 96374; 96375; 96376; 99291

== ENCOUNTER 2018-02-08 09:49 | Emergency (ER) | payer MEDICARE ==
[2018-02-08] MEDS ORDERED: MORPHINE SULFATE 4 MG/ML SYRINGE IV STA (10:06)
[2018-02-08] MEDS ORDERED: ONDANSETRON 4 MG/2 ML VIAL IVP STA (10:06)
--- NOTE | 2018-02-08 10:09 | ED ---
Medical Decision Making - Medical Decision Making I, Sky Palacios, personally saw and examined the patient. I have reviewed and agree with the PA findings, including all diagnostic interpretations and treatment plans as written unless otherwise stated. I was present for the patel portions of any procedures performed and the inclusive time noted for any critical care statement. - Lab Data Result diagrams: 02/08/18 10:15 02/08/18 10:15 Lab Results 02/08/18 02/08/18 Range/Units 10:15 10:15 WBC 8.9 (3.8-10.6) k/uL RBC 4.21 (3.80-5.40) m/uL Hgb 12.9 (11.4-16.0) gm/dL Hct 37.3 (34.0-46.0) % MCV 88.6 (80.0-100.0) fL MCH 30.7 (25.0-35.0) pg MCHC 34.6 (31.0-37.0) g/dL RDW 12.7 (11.5-15.5) % Plt Count 141 L (150-450) k/uL Neutrophils % 80 % Lymphocytes % 11 % Monocytes % 6 % Eosinophils % 1 % Basophils % 0 % Neutrophils # 7.1 (1.3-7.7) k/uL Lymphocytes # 1.0 (1.0-4.8) k/uL Monocytes # 0.6 (0-1.0) k/uL Eosinophils # 0.1 (0-0.7) k/uL Basophils # 0.0 (0-0.2) k/uL PT 13.3 H (9.0-12.0) sec INR 1.4 H (<1.2) APTT 28.1 (22.0-30.0) sec Disposition Clinical Impression: Arterial occlusion, lower extremity Disposition: OTHER INSTITUTION NOT DEFINED Condition: Stable Referrals: Iam Schwartz MD [Primary Care Provider] - 1-2 days - Out of Hospital Transfer - Req. Specs Out of Hospital Transfer - Requested Specifics: Other Emergency Center ( [facility])
--- NOTE | 2018-02-08 10:12 | ED ---
General Adult HPI - General Chief complaint: Extremity Injury, Lower Stated complaint: lt lower leg injury Time Seen by Provider: 02/08/18 09:55 Source: patient, EMS, RN notes reviewed Mode of arrival: EMS - History of Present Illness Initial comments: Patient 77-year-old female presenting to the emergency room today by EMS, the chief complaint of increased left calf and lower leg pain 2 hours. Patient states she was walking down the hallway when she felt a sudden sharp pain left lower leg. States pain is been increasing. Patient was given fentanyl by EMS which she states has not helped with her pain. She states she's never had any similar symptoms in the past. Patient denies any injury or trauma to the area. Patient does admit to being on a blood thinner. Patient denies having symptoms currently. Patient denies any recent fever, chills, shortness of breath , chest pain, back pain, abdominal pain, nausea or vomiting, headaches or visual changes, or any other complaints. - Related Data Home Medications Medication Instructions Recorded Confirmed Digoxin [Lanoxin] 125 mcg PO DAILY 11/30/13 01/19/18 Furosemide [Lasix] 60 mg PO DAILY 11/30/13 01/19/18 Rivaroxaban [Xarelto] 20 mg PO HS 11/30/13 01/19/18 Spironolactone [Aldactone] 25 mg PO DAILY 11/30/13 01/19/18 Multivitamins, Thera [Multivitamin 1 tab PO HS 01/20/14 01/19/18 (formulary)] Ubidecarenone [Coq-10] 100 mg PO HS 01/20/14 01/19/18 Atorvastatin [Lipitor] 40 mg PO DAILY 10/20/17 01/19/18 L.acidoph,Paracasei, B.lactis 1 tab PO HS 10/20/17 01/19/18 [Probiotic] Levothyroxine Sodium [Synthroid] 75 mcg PO MOTUWETH 10/20/17 01/19/18 Levothyroxine Sodium [Synthroid] 150 mcg PO SUFRSA 10/20/17 01/19/18 Metoprolol Succinate (ER) [Toprol 200 mg PO DAILY 10/20/17 01/19/18 XL] Magnesium 200 mg PO HS 11/07/17 01/19/18 Potassium Gluconate 99 mg PO HS 01/19/18 01/19/18 Sacubitril/Valsartan [Entresto 24 1 tab PO BID 01/19/18 01/19/18 mg-26 mg Tablet] Previous Rx's Medication Instructions Recorded Aspirin 81 mg PO DAILY chew 01/19/18 Lidocaine 5% Patch [Lidoderm 5% 1 patch TOPICAL DAILY #30 patch 01/19/18 Patch] Allergies Allergy/AdvReac Type Severity Reaction Status Date / Time ibuprofen [From Motrin] AdvReac Swelling Verified 01/19/18 08:37 levofloxacin [From Levaquin] AdvReac Rash/Hives Verified 01/19/18 08:37 adhesive tape AdvReac blisters Uncoded 01/19/18 00:51 Review of Systems ROS Statement: Those systems with pertinent positive or pertinent negative responses have been documented in the HPI. ROS Other: All systems not noted in ROS Statement are negative. Past Medical History Past Medical History: Atrial Fibrillation, Cancer, Heart Failure, GERD/Reflux, Hyperlipidemia, Hypertension, Myocardial Infarction (SC), Thyroid Disorder Additional Past Medical History / Comment(s): hiatal hernia, arthritis, hx skin cancer, hx diverticulitis,pt states some family have genetic disorder that causes blood clots- she has not been dx with the disorder. Last Myocardial Infarction Date:: 04/2012 History of Any Multi-Drug Resistant Organisms: None Reported Past Surgical History: AICD, Bowel Resection, Breast Surgery, Cardiac Ablation, Cholecystectomy, Heart Catheterization, Hysterectomy, Orthopedic Surgery, Pacemaker, Tonsillectomy Additional Past Surgical History / Comment(s): breast reduction, arthroscopic rt knee, generator change 2013 Past Anesthesia/Blood Transfusion Reactions: No Reported Reaction Type of Cardiac Device: Permanent Pacemaker, AICD Device Placement Date:: 2006 Past Psychological History: No Psychological Hx Reported Smoking Status: Former smoker Past Alcohol Use History: Occasional Past Drug Use History: None Reported - Past Family History Mother Family Medical History: Cancer Additional Family Medical History / Comment(s): At the age 84 colon cancer Sister(s) Family Medical History: Cancer, Deep Vein Thrombosis (DVT) Son(s) Family Medical History: Deep Vein Thrombosis (DVT) Brother(s) Family Medical History: CVA/TIA, Deep Vein Thrombosis (DVT) Additional Family Medical History / Comment(s): She had 2 brothers with a history of stroke Father Family Medical History: Congestive Heart Failure (CHF) General Exam - General Exam Comments Initial Comments: General: The patient is awake and alert, in no distress, and does not appear acutely ill. Neck: The neck is supple, there is no tenderness or JVD. Cardiovascular: There is a regular rate and rhythm. No murmur, rub or gallop is appreciated. Respiratory: Lungs are clear to auscultation, respirations are non-labored, breath sounds are equal. No wheezes, stridor, rales, or rhonchi. Musculoskeletal: Patient shows limited range of motion of left lower extremity due to pain. Sensations are intact. Left lower extremity mildly colder than the right. Unable to palpate pedal pulse on the left. Strong pulses on the right. No bony tenderness on exam. Neurological: A&O x 3. CN II-XII intact, There are no obvious motor or sensory deficits. Coordination appears grossly intact. Speech is normal. Skin: Skin is warm and dry and no rashes or lesions are noted. Psychiatric: Normal mood and affect. Course Vital Signs 02/08/18 09:52 Pulse Rate 77 Respiratory 18 Rate Blood Pressure 169/81 O2 Sat by Pulse 96 Oximetry - Reevaluation(s) Reevaluation #1: 02/08/18 10:[address] Barboza was paged and called back stating that he is currently in or but will call back. 02/08/18 10:38 Dr. Barboza did call back stating that he is currently in or unable to see the patient and recommends transfer. 02/08/18 10:57 Case was discussed with Dr. Elio Hooper who will accept the patient. Patient be transferred by EMS. Medical Decision Making - Lab Data Result diagrams: 02/08/18 10:15 02/08/18 10:15 Lab Results 02/08/18 02/08/18 02/08/18 Range/Units 10:15 10:15 10:15 WBC 8.9 (3.8-10.6) k/uL RBC 4.21 (3.80-5.40) m/uL Hgb 12.9 (11.4-16.0) gm/dL Hct 37.3 (34.0-46.0) % MCV 88.6 (80.0-100.0) fL MCH 30.7 (25.0-35.0) pg MCHC 34.6 (31.0-37.0) g/dL RDW 12.7 (11.5-15.5) % Plt Count 141 L (150-450) k/uL Neutrophils % 80 % Lymphocytes % 11 % Monocytes % 6 % Eosinophils % 1 % Basophils % 0 % Neutrophils # 7.1 (1.3-7.7) k/uL Lymphocytes # 1.0 (1.0-4.8) k/uL Monocytes # 0.6 (0-1.0) k/uL Eosinophils # 0.1 (0-0.7) k/uL Basophils # 0.0 (0-0.2) k/uL PT 13.3 H (9.0-12.0) sec INR 1.4 H (<1.2) APTT 28.1 (22.0-30.0) sec Sodium 136 L (137-145) mmol/L Potassium 5.0 (3.5-5.1) mmol/L Chloride 101 (98-107) mmol/L Carbon Dioxide 23 (22-30) mmol/L Anion Gap 12 mmol/L BUN 30 H (7-17) mg/dL Creatinine 1.10 H (0.52-1.04) mg/dL Est GFR (CKD-EPI)AfAm 57 (>60 ml/min/1.73 sqM) Est GFR (CKD-EPI)NonAf 49 (>60 ml/min/1.73 sqM) Glucose 126 H (74-99) mg/dL Calcium 8.9 (8.4-10.2) mg/dL Total Bilirubin 1.4 H (0.2-1.3) mg/dL AST 37 H (14-36) U/L ALT 46 (9-52) U/L Alkaline Phosphatase 60 (38-126) U/L Total Protein 6.9 (6.3-8.2) g/dL Albumin 4.0 (3.5-5.0) g/dL Disposition Clinical Impression: Arterial occlusion, lower extremity Disposition: OTHER INSTITUTION NOT DEFINED Condition: Stable Is patient prescribed a controlled substance at d/c from ED?: No Referrals: Iam Schwartz MD [Primary Care Provider] - 1-2 days Time of Disposition: 11:10 - Out of Hospital Transfer - Req. Specs Out of Hospital Transfer - Requested Specifics: Other Emergency Center ( [facility])
[2018-02-08 10:30] LABS: Basophils % (A) 0 %; Eosinophils # (A) 0.1 k/uL (0-0.7); Eosinophils % (A) 1 %; HCT 37.3 % (34.0-46.0); HGB 12.9 gm/dL (11.4-16.0); Lymphocytes % (A) 11 %; MCH 30.7 pg (25.0-35.0); MCHC 34.6 g/dL (31.0-37.0); MCV 88.6 fL (80.0-100.0); Mean Platelet Volume 8.6; Monocytes # (A) 0.6 k/uL (0-1.0); Monocytes % (A) 6 %; Neutrophils # (A) 7.1 k/uL (1.3-7.7); Neutrophils % (A) 80 %; Platelet Count 141 k/uL (150-450); RBC 4.21 m/uL (3.80-5.40); RDW 12.7 % (11.5-15.5); WBC 8.9 k/uL (3.8-10.6)
[2018-02-08 10:44] LABS: INR 1.4 (<1.2); Partial Thromboplastin Time 28.1 sec (22.0-30.0); Prothrombin Time 13.3 sec (9.0-12.0)
[2018-02-08 10:59] LABS: Calcium 8.9 mg/dL (8.4-10.2); Total Bilirubin 1.4 mg/dL (0.2-1.3); Total Protein 6.9 g/dL (6.3-8.2)
[2018-02-08 11:20] VITALS: BP 131/60; PULSE 60; RESP 16
== END 2018-02-08 11:30 | disposition short-term general hospital (02) ==
LOC: EC 09:49
DX: I77.1 Stricture of artery (principal); E78.5 Hyperlipidemia, unspecified; I48.91 Unspecified atrial fibrillation; I11.0 Hypertensive heart disease with heart failure; I50.9 Heart failure, unspecified; E07.9 Disorder of thyroid, unspecified; I25.2 Old myocardial infarction; Z87.891 Personal history of nicotine dependence; Z79.01 Long term (current) use of anticoagulants; Z79.899 Other long term (current) drug therapy; Z88.1 Allergy status to other antibiotic agents; Z88.6 Allergy status to analgesic agent; Z91.048 Other nonmedicinal substance allergy status; Z84.81 Family history of carrier of genetic disease; Z82.49 Family history of ischemic heart disease and other diseases of the circulatory system
CPT/HCPCS: 99285; 96374; 96375; 36415; 80053; 85025; 85610; 85730; J2270; J2405

== ENCOUNTER 2018-11-17 05:59 | Day surgery (SDC) | payer MEDICARE ==
[2018-11-17] MEDS ORDERED: ceFAZolin IN SWFI 2 GM/20 ML SYRINGE IVP ONE (06:05)
[2018-11-17] MEDS ORDERED: ceFAZolin 1,000 MG in SODIUM CHLORIDE 0.9% IRRIGATIO 250 ML IRRIGATION ONE (06:05)
[2018-11-17] MEDS: SODIUM CHLORIDE 0.9% 1,000 ML IV SCH ×2 (06:50→09:36)
[2018-11-17 06:52] LABS: Basophils % (A) 0 %; Eosinophils # (A) 0.3 k/uL (0-0.7); Eosinophils % (A) 3 %; HCT 39.4 % (34.0-46.0); HGB 13.1 gm/dL (11.4-16.0); Lymphocytes # (A) 1.9 k/uL (1.0-4.8); Lymphocytes % (A) 20 %; MCH 31.2 pg (25.0-35.0); MCHC 33.3 g/dL (31.0-37.0); MCV 93.9 fL (80.0-100.0); Monocytes # (A) 0.6 k/uL (0-1.0); Monocytes % (A) 6 %; Neutrophils # (A) 6.9 k/uL (1.3-7.7); Neutrophils % (A) 70 %; Platelet Count 192 k/uL (150-450); RDW 13.1 % (11.5-15.5); WBC 9.8 k/uL (3.8-10.6)
[2018-11-17 06:59] LABS: Calcium 9.5 mg/dL (8.4-10.2); Potassium 4.1 mmol/L (3.5-5.1)
[2018-11-17] MEDS ORDERED: METOPROLOL SUCCINATE (ER) 100 MG TAB.ER.24H PO STA (07:07)
[2018-11-17] MEDS ORDERED: PHENYLEPHRINE-0.9% NACL SYG 1 MG/10 ML SYRINGE ONE (07:32)
[2018-11-17] MEDS ORDERED: MIDAZOLAM 2 MG/2 ML VIAL ONE (07:32)
[2018-11-17] MEDS ORDERED: fentaNYL (PF) 50 MCG/ML 2 ML AMP ONE (07:32)
[2018-11-17] MEDS ORDERED: GLYCOPYRROLATE 0.2 MG/ML 2 ML VIAL ONE (07:32)
[2018-11-17] MEDS ORDERED: PROPOFOL 10 MG/ML 20 ML VIAL IV ONE (07:32)
--- NOTE | 2018-11-17 07:48 | ECHOF ---
Referral Reason:AICD generator change,check EF MEASUREMENTS -------- HEIGHT: 160.0 cm WEIGHT: 79.4 kg BP: RVIDd: 3.8 cm (< 3.3) IVSd: 1.0 cm (0.6 - 1.1) LVIDd: 5.7 cm (3.9 - 5.3) LVPWd: 1.0 cm (0.6 - 1.1) IVSs: 1.0 cm LVIDs: 4.9 cm LVPWs: 1.4 cm LA Diam: 4.2 cm (2.7 - 3.8) LAESV Index (A-L): 49.78 ml/m Ao Diam: 3.2 cm (2.0 - 3.7) AV Cusp: 2.2 cm (1.5 - 2.6) EPSS: 2.0 cm MV E Giovany: 0.88 m/s MV DecT: 154 ms MV A Giovany: 0.25 m/s MV E/A Ratio: 3.46 RAP: 15.00 mmHg RVSP: 40.89 mmHg MV EF SLOPE: 59.80 mm/s (70 - 150) MV EXCURSION: 1.47 cm (> 18.000) FINDINGS -------- A-V paced rhythm. This was a technically excellent study. The left ventricle is mildly dilated. Left ventricular wall thickness is normal. Overall left philip tricular systolic function is severely impaired with, an EF between 25 - 30 %. The right ventricle is moderately enlarged. Left atrium is severely dilated by volume. The right atrium is normal in size and function. Interatrial and interventricular septum intact. The aortic valve is trileaflet and appears structurally normal. The mitral valve leaflets are mildly thickened. Mild mitral annular calcification present. Mild m itral regurgitation is present. Mild tricuspid regurgitation present. There is mild pulmonary hypertension. The right ventricular systolic pressure, as measured by Doppler, is 40.89mmHg. Moderate pulmonic regurgitation. The aortic root size is normal. The inferior vena cava is dilated with poor inspiratory collapse which is consistent with estimated r ight atrial pressure of 15 mmHg. There is no pericardial effusion. CONCLUSIONS -------- 1. A-V paced rhythm. 2. This was a technically excellent study. 3. The left ventricle is mildly dilated. 4. Left ventricular wall thickness is normal. 5. Overall left ventricular systolic function is severely impaired with, an EF between 25 - 30 %. 6. The right ventricle is moderately enlarged. 7. Left atrium is severely dilated by volume. 8. The right atrium is normal in size and function. 9. Interatrial and interventricular septum intact. 10. The aortic valve is trileaflet and appears structurally normal. 11. The mitral valve leaflets are mildly thickened. 12. Mild mitral annular calcification present. 13. Mild mitral regurgitation is present. 14. Mild tricuspid regurgitation present. 15. There is mild pulmonary hypertension. 16. The right ventricular systolic pressure, as measured by Doppler, is 40.89mmHg. 17. Moderate pulmonic regurgitation. 18. The aortic root size is normal. 19. The inferior vena cava is dilated with poor inspiratory collapse which is consistent with estimat ed right atrial pressure of 15 mmHg. 20. There is no pericardial effusion. AERONAUTICAL TEST ENGINEER: MARLA Thakkar
[2018-11-17] MEDS ORDERED: LIDOCAINE 1% INJ 10MG/ML (20 ML MDV) ONE (07:53)
[2018-11-17] MEDS ORDERED: LIDOCAINE 1% INJ 10MG/ML (20 ML MDV) SQ ONE ×2 (08:22)
[2018-11-17] MEDS ORDERED: ACETAMINOPHEN IV (For NPO) 1,000 MG in EMPTY BAG 1 BAG IVPB ONE (09:23)
[2018-11-17] MEDS ORDERED: HYDROcodone/APAP 5-325MG 1 EACH TAB PO PRN (09:23)
[2018-11-17 10:04] VITALS: BMI 32.3
[2018-11-17] MEDS: LEVOTHYROXINE 75 MCG TAB PO SCH (10:28)
--- NOTE | 2018-11-17 10:50 | CE ---
CARDIAC ELECTROPHYSIOLOGY REPORT Berenice Miranda is a 77-year-old female with a history of nonischemic cardiomyopathy, persistent atrial fibrillation, congestive heart failure, status post biventricular ICD and status post AV node ablation, whose device is at [facility]. She is biventricular paced 100%. She was brought in for biventricular ICD generator change. She has an underlying rhythm in the mid 30s. Patient was brought to the EP lab in a fasting state. Written informed consent was obtained prior to the procedure. The left shoulder area was prepped and draped as per protocol and 1% lidocaine was used for local anesthesia. An incision was made directly over the previous incision and carried down to the level of the generator. The chronic old generator was explanted. The new generator was implanted. Partial capsulectomy was performed. The leads were carefully freed from the surrounding scar tissue. Hemostasis was achieved. The new device was implanted and the wound was closed in 3 layers and dressed per protocol. The old generator was a Medtronic biventricular ICD STYU7C2, serial # [id number]. The new generator implanted was a Medtronic model #TTXQ2A3, serial #[id number]. The chronic right atrial lead was a Medtronic model #5076, 52 cm in length and serial #[id number]. The ICD lead was a model #6947, 65 cm in length, serial # [id number]. The chronic LV lead which is implanted in the anterolateral LV branch was model #4194, 78 cm in length and serial #[id number]. The patient was in atrial fibrillation. The pacing impedance 361 ohms. The pacing threshold in the right ventricle was 0.75 V at 0.4 milliseconds. Pacing impedance of 480 ohms. High-voltage impedance 40 ohms. SVC coil impedance of 57 ohms. LV pacing threshold was 2 V at 1.5 milliseconds. Pacing impedance of 513 ohms. The patient tolerated the procedure well without any acute complications. The device was then programmed to 2 zones of therapy, VT zone 176 beats per minute, VF zone at 214 beats per minute. Appropriate antitachycardia pacing cardioversion and defibrillations were programmed. Pacing at a pacing mode VVIR at 60 to 130 ppm. MMODL / IJN: [id number] /
[2018-11-17] MEDS: ceFAZolin IN SWFI 2 GM/20 ML SYRINGE IVP SCH ×2 (14:51→20:03)
[2018-11-17] MEDS: ACETAMINOPHEN TAB 325 MG TAB PO PRN (18:13)
[2018-11-17] MEDS: SACUBITRIL/VALSARTAN 24 MG-26 MG TABLET PO SCH (20:03)
[2018-11-17] MEDS ORDERED: MAGNESIUM OXIDE 400 MG TAB PO SCH (21:00)
[2018-11-17] MEDS ORDERED: METOPROLOL SUCCINATE (ER) 100 MG TAB.ER.24H PO SCH (21:00)
[2018-11-17] MEDS ORDERED: RIVAROXABAN 20 MG TAB PO SCH (21:00)
[2018-11-18] MEDS: SODIUM CHLORIDE 0.9% 1,000 ML IV SCH ×2 (02:11)
[2018-11-18] MEDS: ceFAZolin IN SWFI 2 GM/20 ML SYRINGE IVP SCH ×2 (02:12→07:53)
[2018-11-18 03:38] VITALS: TEMP 97.6
[2018-11-18] MEDS: LEVOTHYROXINE 75 MCG TAB PO SCH (06:04)
--- NOTE | 2018-11-18 07:42 | P.DS ---
Providers Attending physician: Donny Mireles Primary care physician: Kostas Kunz [facility] Course: Patient is doing well. She complains of soreness in the ICD site area with minimal bruising no hematoma No chest discomfort dizziness lightheadedness palpitations Breath sounds are clear no rhonchi no crackles Heart sounds S1 is to soft normal no murmurs Abdomen soft Extremities warm Blood pressure 105 06 7 mmHg pulse rate in the 60s afebrile 98.2F normal respirations Impression Severe nonischemic cardio myopathy with severe congestive heart failure, left radical ejection fraction 25-30% RV enlargement Biventricular ICD at MARCELA status post ICD generator change, biventricular Permanent atrial fibrillation status post AV node modification with a junctional escape rhythm in the 30s Suggest Discharge home after completion of IV antibiotics and follow-up in the device clinic within 7 days and follow with Dr. Espinosa in 3-4 months Plan - Discharge Summary Discharge Rx Participant: Yes New Discharge Prescriptions: Continue RX: Rivaroxaban [Xarelto] 20 mg PO HS RX: Furosemide [Lasix] 60 mg PO DAILY RX: Digoxin [Lanoxin] 125 mcg PO DAILY RX: Spironolactone [Aldactone] 25 mg PO DAILY RX: Ubidecarenone [Coq-10] 100 mg PO HS RX: Multivitamins, Thera [Multivitamin (formulary)] 1 tab PO HS RX: Metoprolol Succinate (ER) [Toprol XL] 200 mg PO HS RX: Atorvastatin [Lipitor] 40 mg PO DAILY RX: Levothyroxine Sodium [Synthroid] 150 mcg PO SUFRSA RX: Levothyroxine Sodium [Synthroid] 75 mcg PO MOTUWETH RX: L.acidoph,Paracasei, B.lactis [Probiotic] 1 tab PO HS RX: Magnesium 200 mg PO HS RX: Sacubitril/Valsartan [Entresto 24 mg-26 mg Tablet] 1 tab PO BID RX: Potassium Gluconate 99 mg PO HS RX: Aspirin 81 mg PO DAILY chew Discharge Medication List RX: Digoxin [Lanoxin] 125 mcg PO DAILY 11/30/13 [History] RX: Furosemide [Lasix] 60 mg PO DAILY 11/30/13 [History] RX: Rivaroxaban [Xarelto] 20 mg PO HS 11/30/13 [History] RX: Spironolactone [Aldactone] 25 mg PO DAILY 11/30/13 [History] RX: Multivitamins, Thera [Multivitamin (formulary)] 1 tab PO HS 01/20/14 [History] RX: Ubidecarenone [Coq-10] 100 mg PO HS 01/20/14 [History] RX: Atorvastatin [Lipitor] 40 mg PO DAILY 10/20/17 [History] RX: L.acidoph,Paracasei, B.lactis [Probiotic] 1 tab PO HS 10/20/17 [History] RX: Levothyroxine Sodium [Synthroid] 75 mcg PO MOTUWETH 10/20/17 [History] RX: Levothyroxine Sodium [Synthroid] 150 mcg PO SUFRSA 10/20/17 [History] RX: Metoprolol Succinate (ER) [Toprol XL] 200 mg PO HS 10/20/17 [History] RX: Magnesium 200 mg PO HS 11/07/17 [History] RX: Aspirin 81 mg PO DAILY chew 01/19/18 [Rx] RX: Potassium Gluconate 99 mg PO HS 01/19/18 [History] RX: Sacubitril/Valsartan [Entresto 24 mg-26 mg Tablet] 1 tab PO BID 01/19/18 [History] Follow up Appointment(s)/Referral(s): Donny Mireles MD [STAFF PHYSICIAN] - 1 Week (Device clinic follow-up in one week Follow-up with Dr. Espinosa as previously scheduled or within about 4 months) Activity/Diet/Wound Care/Special Instructions: PATIENT EDUCATION MATERIAL Instructions following a heart rhythm device implant. 1. Keep dressing DRY for 5 DAYS. You may cover the area with Saran or Cling Wrap, prior to a shower. 2. The dressing will be removed in the Device Clinic at [facility]. Absorbable sutures were used to close the wound. 3. Avoid raising the left arm above the shoulder level. 4 week restriction 4. Avoid arm movements, like backscratching, rubbing the head, or pulling on a cord. 4 weeks restriction 5. Gentle range of motion movements of the shoulder, closest to the incision should be performed to avoid a frozen shoulder. (Pendulum exercises of the shoulder) 6. The opposite arm may be used freely. 7. Avoid driving for 7 days. 8. Avoid activities such as golfing, swimming, weed whacking, lifting more than 10 pounds weight, bowling, gymnastics and weight training/lifting. (6 weeks restriction) 9. Activities such as wood chopping with an axe, pull-ups in the gymnasium, power lifting, arc-welding, being close to home induction cooktops will always be a problem. 10. Arm sling is only a reminder not to raise the arm above the head. You do not need to keep the arm completely immobilized. Your free to move the arm and use it and for normal activities. In case of any problems, please call [facility], [place], @ [phone], Attention: Device Clinic Device clinic follow-up in 7 days Follow-up with primary bag presser in [address] Espinosa
[2018-11-18] MEDS: SACUBITRIL/VALSARTAN 24 MG-26 MG TABLET PO SCH (07:53)
[2018-11-18 07:57] VITALS: BP 130/73; PULSE 60; RESP 17
[2018-11-18] MEDS: ACETAMINOPHEN TAB 325 MG TAB PO PRN (08:07)
[2018-11-18] MEDS ORDERED: ATORVASTATIN 40 MG TAB PO SCH (09:00)
[2018-11-18] MEDS ORDERED: FUROSEMIDE 20 MG TAB PO SCH (09:00)
[2018-11-18] MEDS ORDERED: DIGOXIN 125 MCG TAB PO SCH (09:00)
[2018-11-18] MEDS ORDERED: ASPIRIN 81 MG PO SCH (09:00)
[2018-11-18] MEDS ORDERED: SPIRONOLACTONE 25 MG TAB PO SCH (09:00)
[2018-11-20] MEDS ORDERED: LEVOTHYROXINE 75 MCG TAB PO SCH (06:30)
== END 2018-11-18 12:12 ==
LOC: CATHEP 05:59 → 1SOBS 09:20 → CATHEP 11-18 12:12
PROVIDERS: ATTEND Internal Medicine Clinical Cardiac Electrophysiology
DX: I42.0 Dilated cardiomyopathy (principal); Z45.02 Encounter for adjustment and management of automatic implantable cardiac defibrillator; I08.3 Combined rheumatic disorders of mitral, aortic and tricuspid valves; I48.2 Chronic atrial fibrillation; I25.10 Atherosclerotic heart disease of native coronary artery without angina pectoris; I11.0 Hypertensive heart disease with heart failure; I50.22 Chronic systolic (congestive) heart failure; I27.20 Pulmonary hypertension, unspecified; I47.2 Ventricular tachycardia; E78.5 Hyperlipidemia, unspecified; Z72.0 Tobacco use; I73.9 Peripheral vascular disease, unspecified; Z79.01 Long term (current) use of anticoagulants; Z79.82 Long term (current) use of aspirin; Z79.3 Long term (current) use of hormonal contraceptives; Z79.899 Other long term (current) drug therapy; Z88.6 Allergy status to analgesic agent; Z88.1 Allergy status to other antibiotic agents; Z88.0 Allergy status to penicillin; Z88.8 Allergy status to other drugs, medicaments and biological substances
CPT/HCPCS: 93306; 33264; 80048; 85025; C1882; J2250; J0690 ×3; J2001; J3010; J0131; J2370; J2704

== ENCOUNTER → 2018-12-14 | Outpatient (CLI) | payer MEDICARE ==
--- NOTE | 2018-12-14 17:31 | BD ---
EXAMINATION TYPE: Axial Bone Density DATE OF EXAM: 12/14/2018 COMPARISON: NONE CLINICAL HISTORY: 78-year-old female skeletal fluorosis Height: 5'4 Weight: 180 FRAX RISK QUESTIONS: Secondary Osteoporosis: 3. Menopause before 45: y RISK FACTORS HISTORY OF: Postmenopausal woman: y MEDICATIONS: Thyroid Medications: Which medication: Levothyroxine How Lon years Additional Medications: blood pressure, cholesterol, heart, water pill Additional History: EXAM MEASUREMENTS: Bone mineral densitometry was performed using the APR System. Bone mineral density as measured about the Lumbar spine is: ----- L1-L4(G/cm2): 1.385 T Score Values are as follows: ----- L2: 1.1 ----- L3: 3.8 ----- L4: 1.6 ----- L1-L4: 1.7 Bone mineral density about the R hip (g/cm2): 0.924 Bone mineral density about the L hip (g/cm2): 0.963 T Score values are as follows: -----R Neck: -0.8 -----L Neck: -0.5 -----R Total: 0.6 -----L Total: 0.6 IMPRESSION: Normal (Values between +1 and -1 indicate normal bone mass). Consider repeating this study in 5 year s or sooner if there is some new clinical indication. NOTE: T-SCORE=SD OF THE YOUNG ADULT MEAN.
--- NOTE | 2018-12-15 08:21 | MM ---
Reason for exam: screening (asymptomatic). Last mammogram was performed 1 year and 1 month ago. 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 Reductions of both breasts, 1996. Took estrogen for 3 years. Physical Findings: A clinical breast exam by your physician is recommended on an annual basis and results should be correlated with mammographic findings. MG 3D Screening Mammo W/Cad Bilateral CC and MLO view(s) were taken. Prior study comparison: November 18, 2017, bilateral MG 3d diag mammo w/cad JOSEPH. November 28, 2016, bilateral MG 3d screening mammo w/cad. There are scattered fibroglandular densities. Finding #1: There is a 7 mm microlobulated oval mass in the upper outer quadrant, posterior position of the right breast. Finding #2: There are typically benign dystrophic, round calcifications in both breasts. Left axillary pacemaker redemonstrated. New finding, increase in size, and more defined. ASSESSMENT: Incomplete: need additional imaging evaluation, BI-RAD 0 RECOMMENDATION: Ultrasound of the right breast. [facility] will attempt to contact patient to return for ultrasound.
== END | disposition home or self-care (01) ==
LOC: RADMAMWWP 09:40
PROVIDERS: ATTEND Internal Medicine
DX: Z12.31 Encounter for screening mammogram for malignant neoplasm of breast (principal); M85.9 Disorder of bone density and structure, unspecified
CPT/HCPCS: 77063; 77067; 77080

== ENCOUNTER → 2018-12-21 | Outpatient (CLI) | payer MEDICARE ==
--- NOTE | 2018-12-21 10:18 | USB ---
Reason for exam: additional evaluation requested from abnormal screening. 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 Reductions of both breasts, 1995. Took estrogen for 3 years. Physical Findings: Nurse did not find any significant physical abnormalities on exam. US Breast Workup Limited RT Right limited breast ultrasound including focal area of concern, retroareolar and axilla demonstrates a 0.5 x 0.6 x 0.7cm taller than wide, irregular, solid, hypoechoic lesion at 10 o'clock for which a biopsy is recommended, ductal ectasia at the posterior nipple and a 2.3 x 1.4 x 0.1cm oval node, morphologically normal at the axilla. These results were verbally communicated with the patient and result sheet given to the patient on 12/21/18. ASSESSMENT: Suspicious, BI-RAD 4 RECOMMENDATION: Ultrasound core biopsy of the right breast. Called Dr. Kunz with mammographic findings and has scheduled an appointment for the patient for 01/08/19 at 11:[address] Lima. Biopsy scheduled for 12/28/18 at 2:00. PRELIMINARY REPORT CALLED AND FAXED TO DR. LIMA ON 12/21/18.
== END | disposition home or self-care (01) ==
LOC: RADUSWWP 08:46
PROVIDERS: ATTEND Internal Medicine
DX: R92.8 Other abnormal and inconclusive findings on diagnostic imaging of breast (principal)

== ENCOUNTER → 2018-12-28 | Day surgery (SDC) | payer MEDICARE ==
[2018-12-28 13:33] VITALS: RESP 16; BMI 30.2
[2018-12-28 14:33] VITALS: BP 105/69; PULSE 86; TEMP 98.1
--- NOTE | 2018-12-28 14:54 | USB ---
EXAMINATION TYPE: US biopsy breast VAD RT, MG diagnostic mammo RT wo CAD DATE OF EXAM: 12/28/2018 CLINICAL HISTORY: R92.8 ABN MAMMO. 12/21/2018 TECHNIQUE: Ultrasound guided core biopsy of right breast. COMPARISON: 12/14/2018 FINDINGS: The procedure of ultrasound guided core biopsy was explained to the patient. Benefits, alternatives, and risks were discussed. An informed consent was then obtained. Preprocedural timeout was performed. On prescan image 03/17 2 additional hypoechoic masses are seen at the 10:00 position located 7 mm from the index mass (0.5 x 0.6 x 0.7 cm irregular mass at the 10:00 position on the right). These measure 4 mm and 2 mm. These are also demonstrated on prebiopsy image 05/17. The patient was placed in supine positioning for imaging and for the procedure. The overlying skin was prepped and draped in usual sterile fashion. 10 cc of 1% lidocaine was used as anesthetic into the skin and subcutaneous tissue up to area of concern in the right breast. Under ultrasound guidance, a 12-gauge vacuum assisted biopsy gun device was used to obtain 5 core samples. Following this, a biopsy coil-shaped biopsy marker was left at the site of biopsy. Biopsy marker appears appropriately placed on post biopsy imaging. The patient tolerated the procedure well without any immediate complication. The patient was kept in the radiology department for short stay after the procedure and then discharged home in stable condition. IMPRESSION: Successful, uncomplicated ultrasound guided core biopsy of the suspicious 7 mm mass at the 10:00 position in the right breast, full pathology results to follow. Of note there are two 4 mm and 2 mm masses seen 7 mm apart from the index mass. The should be also localized on excision pending biopsy results or wide excision would be recommended. Pathology Results: Malignant RIGHT BREAST, 10:00, ULTRASOUND GUIDED CORE BIOPSY: Invasive well differentiated ductal carcinoma (Grade 1). See Surgical Pathology Cancer Case Summary. Recommendation Surgical consult of the right breast. JULIUS
== END | disposition home or self-care (01) ==
LOC: RADUSWWP 12:42
PROVIDERS: ATTEND Surgery
DX: C50.411 Malignant neoplasm of upper-outer quadrant of right female breast (principal)
CPT/HCPCS: 88305; 88342; 88341; 77065; 19083; A4648; J2001

== ENCOUNTER → 2019-01-08 | Outpatient (CLI) | payer MEDICARE ==
[2019-01-08 11:47] VITALS: BP 106/73; PULSE 84; RESP 18; TEMP 98.1
--- NOTE | 2019-01-08 12:23 | P.GSHP ---
History of Present Illness H&P Date: 01/08/19 Chief Complaint: Right breast core biopsy positive for invasive ductal carcinoma Berenice is a 78-year-old white female who was initially seen approximately a year ago with a complaint of bleeding from her right nipple complex. She was on 8 blood thinner and this has since stopped. The patient [place] [address]. This revealed a 7 mm microlobulated mass in the upper outer quadrant in the right breast. Subsequently an ultrasound was performed and the ultrasound confirmed this area. She underwent ultrasound-guided core biopsy of the right breast and 7119. In addition to the 7 mm mass at the 10 o'clock position of the right breast there were 2 lesions 1 at 4 mm and 1-2 mm seen 7 mm apart from the index mass. The index mass was sampled and this was positive for invasive ductal carcinoma grade 1. This is ER/DE positive and HER- 2 2 negative. Family history: 1. Mother: Colon cancer 2. Sr.: Skin cancer 3. Patient: Skin cancer Hormonal history: Menarche: 17 , one miscarriage, first live at 23, breast fed Yes Menopause: Hysterectomy at 42 did not take ovaries this was done for bleeding control pills: 15 years Hormones: Negative Past surgical history: 1. Cholecystectomy 2. Pacemaker 3. Breast reduction 4. Hernia surgery 5. Colon resection 6. Tonsillectomy 7. Hysterectomy 8. Pacemaker Past medical history: 1. Atrial fibrillation pacemaker 2. LA 2010 3. DVT 2017 Social history: Smoke: One pack per week for 15 years Stopped smoking in 1995 Alcohol: Twice a month Drugs: Negative - Constitutional Constitutional: Denies chills, Denies fever - EENT Comment: wears glasses, cataracts Ears: left: decreased hearing (Right deaf, heariong aid left ear), deny: tinnitus Ears, nose, mouth and throat: Denies headache, Denies sore throat - Breasts Breasts: bilateral: as per HPI - Cardiovascular Cardiovascular: Reports high blood pressure, Denies chest pain, Denies shortness of breath - Respiratory Comment: former smoker - Gastrointestinal Gastrointestinal: Denies abdominal pain, Denies diarrhea, Denies nausea, Denies vomiting - Genitourinary (Female) Genitourinary: Denies dysuria, Denies hematuria - Menstruation Menstruation: Reports post hysterectomy - Musculoskeletal Comment: arthritis - Integumentary Integumentary: Denies pruritus, Denies rash - Neurological Neurological: Denies numbness, Denies weakness - Psychiatric Psychiatric: Denies anxiety, Denies depression - Endocrine Comment: hypothyroid - Hematologic/Lymphatic Comment: none - Allergic/Immunologic Allergic/Immunologic: Reports seasonal allergies Past Medical History Past Medical History: Atrial Fibrillation, Cancer, Heart Failure, Deep Vein Thrombosis (DVT), GERD/Reflux, Hyperlipidemia, Hypertension, Myocardial Infarction (LA), Osteoarthritis (OA), Thyroid Disorder Additional Past Medical History / Comment(s): hiatal hernia, arthritis, hx basal skin cancer, hx diverticulitis,pt states some family members have a genetic disorder that causes blood clots- she has not been dx with the disorder, Myocardial Infarction x1 (2010), hypothyroidism Last Myocardial Infarction Date:: 04/2012 History of Any Multi-Drug Resistant Organisms: None Reported Past Surgical History: AICD, Bowel Resection, Breast Surgery, Cardiac Ablation, Cholecystectomy, Heart Catheterization, Hysterectomy, Orthopedic Surgery, Pacemaker, Tonsillectomy Additional Past Surgical History / Comment(s): bilateral breast reduction 1995, arthroscopic rt knee, generator change 2013, partial hysterectomy (bilateral ovaries retained), pacemaker battery replaced October 2018 Past Anesthesia/Blood Transfusion Reactions: No Reported Reaction Additional Past Anesthesia/Blood Transfusion Reaction / Comment(s): No blood transfusions to date (pt had an autolygous transfusion when undergoing bilateral breast reduction) Type of Cardiac Device: Permanent Pacemaker, AICD Device Placement Date:: 2006 Past Psychological History: No Psychological Hx Reported Smoking Status: Former smoker Past Alcohol Use History: Occasional Additional Past Alcohol Use History / Comment(s): smoked for 20 years 1 pack/wk quit 1995 Past Drug Use History: None Reported - Past Family History Mother Family Medical History: Cancer Additional Family Medical History / Comment(s): colon cancer dx at age 74, at age 84 Sister(s) Family Medical History: Cancer, CVA/TIA, Deep Vein Thrombosis (DVT) Additional Family Medical History / Comment(s): pt has 2 sisters: sister #1: at age 79 from stroke complications (also had a hx of blood clots). sister #2: had a cancerous tumor on aortic valve Son(s) Family Medical History: Deep Vein Thrombosis (DVT) Brother(s) Family Medical History: CVA/TIA, Deep Vein Thrombosis (DVT) Additional Family Medical History / Comment(s): She has 1 brother with a history of stroke and blood clot Father Family Medical History: Congestive Heart Failure (CHF) Medications and Allergies Home Medications Medication Instructions Recorded Confirmed Type Digoxin [Lanoxin] 125 mcg PO DAILY 11/30/13 01/08/19 History Furosemide [Lasix] 60 mg PO DAILY 11/30/13 01/08/19 History Rivaroxaban [Xarelto] 20 mg PO HS 11/30/13 01/08/19 History Spironolactone [Aldactone] 25 mg PO DAILY 11/30/13 01/08/19 History Multivitamins, Thera [Multivitamin 1 tab PO HS 01/20/14 01/08/19 History (formulary)] Ubidecarenone [Coq-10] 100 mg PO HS 01/20/14 01/08/19 History Atorvastatin [Lipitor] 40 mg PO DAILY 10/20/17 01/08/19 History L.acidoph,Paracasei, B.lactis 1 tab PO HS 10/20/17 01/08/19 History [Probiotic] Levothyroxine Sodium [Synthroid] 75 mcg PO MOTUWETH 10/20/17 01/08/19 History Levothyroxine Sodium [Synthroid] 150 mcg PO SUFRSA 10/20/17 01/08/19 History Metoprolol Succinate (ER) [Toprol 200 mg PO HS 10/20/17 01/08/19 History XL] Magnesium 200 mg PO HS 11/07/17 01/08/19 History Aspirin 81 mg PO DAILY chew 01/19/18 01/08/19 Rx Potassium Gluconate 99 mg PO HS 01/19/18 01/08/19 History Sacubitril/Valsartan [Entresto 24 1 tab PO BID 01/19/18 01/08/19 History mg-26 mg Tablet] Allergies Allergy/AdvReac Type Severity Reaction Status Date / Time ibuprofen [From Motrin] AdvReac Swelling Verified 01/08/19 11:40 levofloxacin [From Levaquin] AdvReac Rash/Hives Verified 01/08/19 11:40 adhesive tape AdvReac blisters Uncoded 01/08/19 11:40 Surgical - Exam Vital Signs Temp Pulse Resp BP Pulse Ox 98.1 F 84 18 106/73 96 01/08/19 11:44 01/08/19 11:44 01/08/19 11:44 01/08/19 11:44 01/08/19 11:44 BMI 30 - General well developed, well nourished, no distress - Eyes normal ocular movement - ENT no hearing loss, no congestion - Neck no masses, trachea midline - Respiratory normal respiratory effort, clear to auscultation - Cardiovascular Heart Sounds: normal: S1, S2 - Abdomen Abdomen: soft, non tender, no guarding, no rigid, no rebound - Integumentary normal turgor - Neurologic no disoriented, no combative - Musculoskeletal normal gait, normal posture - Psychiatric oriented to time, oriented to person, oriented to place, speech is normal, memory intact breast exam: Right breast: Multiple positional exam some mild increase fullness posteriorly of recent core biopsy with some ecchymosis at this site, well-healed scars from prior reduction mammoplasty Right axilla: No adenopathy of concern Left breast: Pacemaker in place over her left chest, multiple positional exam fibrocystic changes no dominant masses or nodules of concern Left axilla: No adenopathy of concern Results Mammogram and ultrasound reviewed with radiologist Assessment and Plan Assessment: Impression: 1. T1 N0 G1 ER/DE positive HER-2/rob negative right breast invasive ductal carcinoma 2. Ultrasound of additional areas of concern. Index lesion on the right side 3. Atrial fibrillation on blood thinner 4. Prior history of DVT 5. Prior bilateral breast reduction mammoplasty 6. Family history of cancer 7. Hypothyroidism The patient's disease process has been discussed with her. Options including lumpectomy, sentinel node biopsy, possible axillary node dissection, and possibl e mastectomy plus or minus reconstruction have been discussed. At this time the patient wishes to have a lumpectomy if all possible. We have discussed the possibility of a breast MRI which is not possible secondary to the fact that she has a pacemaker. The patient's case will be presented at tumor board. The patient has family obligations until the end of January in her procedure will be scheduled near the end of January. In the interim she will obtained clearance from medicine and cardiology. Plan: 1. Medical clearance 2. Cardiology clearance particularly with respect to the blood thinner 3. Patient is going to be seen by radiation oncology 4. Probable lumpectomy with sentinel node biopsy possible axillary node dissection 5. Patient will follow. After case presented at tumor Board in closer proximity to her surgery CC: Dr. Kunz, Dr. Espinosa
== END | disposition home or self-care (01) ==
LOC: WWCWWP 10:38
PROVIDERS: ATTEND Surgery
DX: Z53.9 Procedure and treatment not carried out, unspecified reason (principal)

== ENCOUNTER 2019-02-23 10:15 | Day surgery (SDC) | payer MEDICARE ==
[2019-02-16 12:10] VITALS: BMI 29.8
--- NOTE | 2019-02-23 08:26 | P.PN ---
Progress Note - Text Berenice is a 78-year-old white female who was initially seen approximately a year ago with a complaint of bleeding from her right nipple complex. She was on 8 blood thinner and this has since stopped. The patient had a recent mammogram performed on . This revealed a 7 mm microlobulated mass in the upper outer quadrant in the right breast. Subsequently an ultrasound was performed and the ultrasound confirmed this area. She underwent ultrasound-guided core biopsy of the right breast and 7119. In addition to the 7 mm mass at the 10 o'clock position of the right breast there were 2 lesions 1 at 4 mm and 1-2 mm seen 7 mm apart from the index mass. The index mass was sampled and this was positive for invasive ductal carcinoma grade 1. This is ER/MI positive and HER- 2 2 negative. Family history: 1. Mother: Colon cancer 2. Sr.: Skin cancer 3. Patient: Skin cancer Hormonal history: Menarche: 17 , one miscarriage, first live at 23, breast fed Yes Menopause: Hysterectomy at 42 did not take ovaries this was done for bleeding control pills: 15 years Hormones: Negative Past surgical history: 1. Cholecystectomy 2. Pacemaker 3. Breast reduction 4. Hernia surgery 5. Colon resection 6. Tonsillectomy 7. Hysterectomy 8. Pacemaker Past medical history: 1. Atrial fibrillation pacemaker 2. MD 2010 3. DVT 2018 Social history: Smoke: One pack per week for 15 years Stopped smoking in 1995 Alcohol: Twice a month Drugs: Negative - Constitutional Constitutional: Denies chills, Denies fever - EENT Comment: wears glasses, cataracts Ears: left: decreased hearing (Right deaf, heariong aid left ear), deny: tinnitus Ears, nose, mouth and throat: Denies headache, Denies sore throat - Breasts Breasts: bilateral: as per HPI - Cardiovascular Cardiovascular: Reports high blood pressure, Denies chest pain, Denies shortness of breath - Respiratory Comment: former smoker - Gastrointestinal Gastrointestinal: Denies abdominal pain, Denies diarrhea, Denies nausea, Denies vomiting - Genitourinary (Female) Genitourinary: Denies dysuria, Denies hematuria - Menstruation Menstruation: Reports post hysterectomy - Musculoskeletal Comment: arthritis - Integumentary Integumentary: Denies pruritus, Denies rash - Neurological Neurological: Denies numbness, Denies weakness - Psychiatric Psychiatric: Denies anxiety, Denies depression - Endocrine Comment: hypothyroid - Hematologic/Lymphatic Comment: none - Allergic/Immunologic Allergic/Immunologic: Reports seasonal allergies Past Medical History Past Medical History: Atrial Fibrillation, Cancer, Heart Failure, Deep Vein Thrombosis (DVT), GERD/Reflux, Hyperlipidemia, Hypertension, Myocardial Infarction (MD), Osteoarthritis (OA), Thyroid Disorder Additional Past Medical History / Comment(s): hiatal hernia, arthritis, hx basal skin cancer, hx diverticulitis,pt states some family members have a genetic disorder that causes blood clots- she has not been dx with the disorder, Myocardial Infarction x1 (2010), hypothyroidism Last Myocardial Infarction Date:: 04/2012 History of Any Multi-Drug Resistant Organisms: None Reported Past Surgical History: AICD, Bowel Resection, Breast Surgery, Cardiac Ablation, Cholecystectomy, Heart Catheterization, Hysterectomy, Orthopedic Surgery, Pacemaker, Tonsillectomy Additional Past Surgical History / Comment(s): bilateral breast reduction 1995, arthroscopic rt knee, generator change 2013, partial hysterectomy (bilateral ovaries retained), pacemaker battery replaced October 2018 Past Anesthesia/Blood Transfusion Reactions: No Reported Reaction Additional Past Anesthesia/Blood Transfusion Reaction / Comment(s): No blood transfusions to date (pt had an autolygous transfusion when undergoing bilateral breast reduction) Type of Cardiac Device: Permanent Pacemaker, AICD Device Placement Date:: 2006 Past Psychological History: No Psychological Hx Reported Smoking Status: Former smoker Past Alcohol Use History: Occasional Additional Past Alcohol Use History / Comment(s): smoked for 20 years 1 pack/wk quit 1995 Past Drug Use History: None Reported - Past Family History Mother Family Medical History: Cancer Additional Family Medical History / Comment(s): colon cancer dx at age 74, dece ased at age 84 Sister(s) Family Medical History: Cancer, CVA/TIA, Deep Vein Thrombosis (DVT) Additional Family Medical History / Comment(s): pt has 2 sisters: sister #1: at age 79 from stroke complications (also had a hx of blood clots). sister #2: had a cancerous tumor on aortic valve Son(s) Family Medical History: Deep Vein Thrombosis (DVT) Brother(s) Family Medical History: CVA/TIA, Deep Vein Thrombosis (DVT) Additional Family Medical History / Comment(s): She has 1 brother with a history of stroke and blood clot Father Family Medical History: Congestive Heart Failure (CHF) Medications and Allergies Home Medications Medication Instructions Recorded Confirmed Type Digoxin [Lanoxin] 125 mcg PO DAILY 11/30/13 01/08/19 History Furosemide [Lasix] 60 mg PO DAILY 11/30/13 01/08/19 History Rivaroxaban [Xarelto] 20 mg PO HS 11/30/13 01/08/19 History Spironolactone [Aldactone] 25 mg PO DAILY 11/30/13 01/08/19 History Multivitamins, Thera [Multivitamin 1 tab PO HS 01/20/14 01/08/19 History (formulary)] Ubidecarenone [Coq-10] 100 mg PO HS 01/20/14 01/08/19 History Atorvastatin [Lipitor] 40 mg PO DAILY 10/20/17 01/08/19 History L.acidoph,Paracasei, B.lactis 1 tab PO HS 10/20/17 01/08/19 History [Probiotic] Levothyroxine Sodium [Synthroid] 75 mcg PO MOTUWETH 10/20/17 01/08/19 History Levothyroxine Sodium [Synthroid] 150 mcg PO SUFRSA 10/20/17 01/08/19 History Metoprolol Succinate (ER) [Toprol 200 mg PO HS 10/20/17 01/08/19 History XL] Magnesium 200 mg PO HS 11/07/17 01/08/19 History Aspirin 81 mg PO DAILY chew 01/19/18 01/08/19 Rx Potassium Gluconate 99 mg PO HS 01/19/18 01/08/19 History Sacubitril/Valsartan [Entresto 24 1 tab PO BID 01/19/18 01/08/19 History mg-26 mg Tablet] Allergies Allergy/AdvReac Type Severity Reaction Status Date / Time ibuprofen [From Motrin] AdvReac Swelling Verified 01/08/19 11:40 levofloxacin [From Levaquin] AdvReac Rash/Hives Verified 01/08/19 11:40 adhesive tape AdvReac blisters Uncoded 01/08/19 11:40 Surgical - Exam Vital Signs Temp Pulse Resp BP Pulse Ox 98.1 F 84 18 106/73 96 01/08/19 11:44 01/08/19 11:44 01/08/19 11:44 01/08/19 11:44 01/08/19 11:44 BMI 30 - General well developed, well nourished, no distress - Eyes normal ocular movement - ENT no hearing loss, no congestion - Neck no masses, trachea midline - Respiratory normal respiratory effort, clear to auscultation - Cardiovascular Heart Sounds: normal: S1, S2 - Abdomen Abdomen: soft, non tender, no guarding, no rigid, no rebound - Integumentary normal turgor - Neurologic no disoriented, no combative - Musculoskeletal normal gait, normal posture - Psychiatric oriented to time, oriented to person, oriented to place, speech is normal, memory intact breast exam: Right breast: Multiple positional exam some mild increase fullness posteriorly of recent core biopsy with some ecchymosis at this site, well-healed scars from prior reduction mammoplasty Right axilla: No adenopathy of concern Left breast: Pacemaker in place over her left chest, multiple positional exam fibrocystic changes no dominant masses or nodules of concern Left axilla: No adenopathy of concern Results Mammogram and ultrasound reviewed with radiologist Assessment and Plan Assessment: Impression: 1. T1 N0 G1 ER/MI positive HER-2/rob negative right breast invasive ductal carcinoma 2. Ultrasound of additional areas of concern. Index lesion on the right side 3. Atrial fibrillation on blood thinner 4. Prior history of DVT 5. Prior bilateral breast reduction mammoplasty 6. Family history of cancer 7. Hypothyroidism The patient's disease process has been discussed with her. Options including lumpectomy, sentinel node biopsy, possible axillary node dissection, and possible mastectomy plus or minus reconstruction have been discussed. At this time the patient wishes to have a lumpectomy if all possible. We have discussed the possibility of a breast MRI which is not possible secondary to the fact that she has a pacemaker. The patient's case will be presented at tumor board. The patient has family obligations until the end of January in her procedure will be scheduled near the end of January. In the interim she will obtained clearance from medicine and cardiology. Plan: 1. Medical clearance 2. Cardiology clearance particularly with respect to the blood thinner 3. Patient is going to be seen by radiation oncology 4. Probable lumpectomy with sentinel node biopsy possible axillary node dissection, the case will be reviewed with radiology CC: Dr. Kunz, Dr. Espinosa
[~2019-02-23 10:15] MED LIST: DEXAMETHASONE SOD PHOSPHATE 10 MG/ML 1 ML VIAL IV ONE; HEPARIN SODIUM,PORCINE 5,000 UNIT/ML 1 ML VIAL SQ ONE; HYDROmorphone 0.5 MG/0.5 ML SYRINGE IVP PRN; LACTATED RINGERS 1,000 ML IV SCH; MIDAZOLAM 2 MG/2 ML VIAL IV PRN; ONDANSETRON 4 MG/2 ML VIAL IVP ONE; Pre Op ABX Message 1 EACH MISC MISCELLANE ONE
[2019-02-23] MEDS ORDERED: ALPRAZolam 0.25 MG TAB PO ONE (11:09)
[2019-02-23] MEDS ORDERED: LIDOCAINE 1% 20 ML VIAL (10MG/ML) FOR IV START INTRADERMA ONE (11:28)
[2019-02-23] MEDS ORDERED: LIDOCAINE 1% INJ 10MG/ML (20 ML MDV) SQ ONE (12:06)
--- NOTE | 2019-02-23 13:00 | NM ---
EXAMINATION TYPE: NM sentinel node injection DATE OF EXAM: 02/23/2019 COMPARISON: 12/28/2018 HISTORY: Right breast cancer with request for sentinel node injection TECHNIQUE AND FINDINGS: The procedure of sentinel lymph node injection was explained to the patient. The benefits, alternatives, and risks were discussed. An informed consent was then obtained. Overlying skin is cleaned with sterile alcohol. Following this, 478 uCi [id number] Tilmanocept was inject ed in the upper outer aspect of the right nipple intradermally. The patient tolerated the procedure well without any immediate complication. The patient was kept in the radiology department for short stay after the procedure and then taken to surgery for surgical p rocedure what is presumed intraoperative gamma probe will be used for sentinel lymph node detection. IMPRESSION: Right breast radiotracer injection for sentinel node localization as above.
[2019-02-23] MEDS ORDERED: PHENYLEPHRINE-0.9% NACL SYG 1 MG/10 ML SYRINGE ONE (13:58)
[2019-02-23] MEDS ORDERED: LIDOCAINE 1% INJ 10MG/ML (20 ML MDV) ONE (13:58)
[2019-02-23] MEDS ORDERED: fentaNYL (PF) 50 MCG/ML 2 ML AMP ONE (13:58)
[2019-02-23] MEDS ORDERED: MIDAZOLAM 2 MG/2 ML VIAL ONE (13:58)
[2019-02-23] MEDS ORDERED: PROPOFOL 10 MG/ML 20 ML VIAL IV ONE (13:58)
[2019-02-23] MEDS ORDERED: ROCURONIUM BROMIDE 10 MG/ML 10 ML VIAL IV ONE (13:58)
[2019-02-23] MEDS ORDERED: HEPARIN SODIUM,PORCINE 5,000 UNIT/ML 1 ML VIAL SQ ONE (14:29)
--- NOTE | 2019-02-23 14:32 | P.NAPBC ---
NAPBC Queries - NAPBC Queries Was patient's case review presented at [facility] tumor board? If no, comment.: Yes Was patient's pathology reviewed at [facility]? If no, comment.: Yes Was breast conservation surgery offered? If no, comment.: Yes Was sentinel node biopsy offered? If no, comment.: Yes Was diagnosis confirmed by percutaneous core biopsy? If no, comment.: Yes Is patient mastectomy patient?: No Was a preop referral to reconstructive surgeon offered?: No Clinical Stage: [id number]+CO+HER2-G1 Stage IA
[2019-02-23] MEDS ORDERED: LIDOCAINE (PF) 10 MG/ML 2 ML VIAL SQ ONE ×2 (14:44→15:37)
[2019-02-23] MEDS ORDERED: LACTATED RINGERS 1,000 ML IV ONE ×2 (15:02)
--- NOTE | 2019-02-23 15:36 | USB ---
EXAMINATION TYPE: US breast local each add RT, US breast localization RT, MG surgical specimen RT DATE OF EXAM: 02/23/2019 COMPARISON: 12/28/2018 CLINICAL HISTORY: R92.8 ABNORMAL MAMMOGRAM. TECHNIQUE: Following a discussion of the potential risks, benefits and alternatives of the procedure, the patient gave verbal and written informed consent for mammographic guided needle localization the known biopsy-proven 7 mm invasive well-differentiated ductal carcinoma (grade 1) and 2 adjacent 4 mm and 2 mm masses, possible satellite masses within the right breast. Preprocedural timeout was perfo rmed. Aseptic technique was utilized and 10 cc of 1% lidocaine used for anesthesia. Under direct ultrasound guidance a 5 cm needle was advanced through the biopsy-proven 7 mm mass at the 10:00 position in the right breast. The wire was then placed through the needle and the needle removed. Under direct ultra sound guidance a 5 cm needle was advanced through the 2 mm and 4 mm masses at the 10:00 position in t he right breast. The wire was then placed through the needle and the needle removed. Post-procedure CC and ML views were obtained. The patient tolerated the procedure well. The patient was discharged to the OR holding area in good condition. The specimen radiograph demonstrates both distal ends of the needle localization wires to be present. Findings were conveyed to the OR. IMPRESSION: Successful ultrasound-guided needle localization with bracketing placed between the know n biopsy-proven 7 mm invasive well-differentiated ductal carcinoma (grade 1) and 2 adjacent 4 mm and 2 mm masses, possible satellite masses within the right breast. Await pathology results. Further man agement of the patient is per Dr. Zelalem French.
--- NOTE | 2019-02-23 15:46 | P.OP ---
Date of Procedure: 02/23/19 Preoperative Diagnosis: Right breast invasive ductal carcinoma Postoperative Diagnosis: Same Procedure(s) Performed: Right breast invasive ductal carcinoma, excision of right breast/chest wall mole, excision of the right axillary mole, sentinel node biopsy[facility] Anesthesia: LEONCIO Surgeon: Kailyn Lima Estimated Blood Loss (ml): 10 IV fluids (ml): 400 Pathology: other ([place] lymph node, breast tissue) Condition: stable Disposition: same day Indications for Procedure: core biopsy right breast invasive ductal carcinoma Operative Findings: Fibrofatty breast tissue Description of Procedure: The patient is a 78-year-old white female who is status post core biopsy of an area of concern in the right breast. This pathology revealed invasive ductal carcinoma. Additionally there were ultrasound areas of concern noted in proximity to this lesion and all areas were localized using needle localization for the excisional biopsy. The patient opted for a lumpectomy and sentinel node biopsy. Localization of the areas of concern were performed. Lymphokine was injected with local as a sentinel lymph node. The patient was taken to the operating room and following induction of anesthesia the right breast was prepped and draped in a sterile fashion. Prior to prepping and draping the breast and neoprobe was utilized to identify radi oactivity in the axilla. This was identified. The patient had 2 holes the breast and axilla which she requested be removed. The first was in the axilla and wide excision was performed. The lesion was approximately 1 cm in size. The deep tissues were closed using a 4-0 Monocryl. Following this the area on the chest revealed a portion of the right breast was excised. This lesion was approximately 1 cm in size. The skin was closed at this site using a nylon suture. Following this the right axilla was approached. The neoprobe was utilized to find the area of greatest radioactivity. An incision was made. The tissue was dissected down to the area of increased radioactivity in a lymph node. This was excised. This was facilitated using the LigaSure as well as electrocautery device. The 10 second count was approximately 1500. However using the neoprobe the second lymph node was identified which was radioactive this was excised as well. The 10 second count of the [id number]. That node was sent for frozen section evaluation and was negative. The background 10 second radioactive count was 31. This was carefully evaluated and hemostasis was noted to be present. The wound was well irrigated. Additional tissue which had been resected and dissected that the sentinel node was sent as axillary contents. Following this through the same incision in the axilla were able to reach the area of concern in the upper outer quadrant of the right breast. A skin flap was developed between the skin and the breast tissue the upper quadrant. This was dissected around the area of the two needles used for localization. This area was dissected down onto the pectoralis major muscle. The LigaSure was used to excise the area of concern. The specimen was painted for orientation. Specimen was sent for x-ray and the area of concern was noted to be excised. After assured that hemostasis was attained titanium clips were placed to joey the area. The wound was well irrigated. The deep tissues were closed using 3-0 Vicryl suture. The skin was closed using 4-0 Monocryl. A PHILL drain was placed prior to closure. The drain was secured using a nylon suture. All instrument and sponge counts were correct at the end of the case. The patient tolerated the procedure in stable condition.
--- NOTE | 2019-02-23 15:48 | P.DS ---
Providers Attending physician: Kailyn Lima Primary care physician: Kostas Kunz Plan - Discharge Summary Discharge Rx Participant: No New Discharge Prescriptions: No Action Rivaroxaban [Xarelto] 20 mg PO HS Furosemide [Lasix] 40 mg PO DAILY Digoxin [Lanoxin] 125 mcg PO DAILY Spironolactone [Aldactone] 25 mg PO DAILY Ubidecarenone [Coq-10] 100 mg PO HS Multivitamins, Thera [Multivitamin (formulary)] 1 tab PO HS Metoprolol Succinate (ER) [Toprol XL] 200 mg PO DAILY Atorvastatin [Lipitor] 40 mg PO DAILY Levothyroxine Sodium [Synthroid] 150 mcg PO SUFRSA Levothyroxine Sodium [Synthroid] 75 mcg PO MOTUWETH L.acidoph,Paracasei, B.lactis [Probiotic] 1 tab PO HS Magnesium 200 mg PO HS Sacubitril/Valsartan [Entresto 24 mg-26 mg Tablet] 1 tab PO BID Potassium Gluconate 99 mg PO HS Aspirin 81 mg PO DAILY chew Furosemide [Lasix] 20 mg PO HS Discharge Medication List Digoxin [Lanoxin] 125 mcg PO DAILY 11/30/13 [History] Furosemide [Lasix] 40 mg PO DAILY 11/30/13 [History] Rivaroxaban [Xarelto] 20 mg PO HS 11/30/13 [History] Spironolactone [Aldactone] 25 mg PO DAILY 11/30/13 [History] Multivitamins, Thera [Multivitamin (formulary)] 1 tab PO HS 01/20/14 [History] Ubidecarenone [Coq-10] 100 mg PO HS 01/20/14 [History] Atorvastatin [Lipitor] 40 mg PO DAILY 10/20/17 [History] L.acidoph,Paracasei, B.lactis [Probiotic] 1 tab PO HS 10/20/17 [History] Levothyroxine Sodium [Synthroid] 75 mcg PO MOTUWETH 10/20/17 [History] Levothyroxine Sodium [Synthroid] 150 mcg PO SUFRSA 10/20/17 [History] Metoprolol Succinate (ER) [Toprol XL] 200 mg PO DAILY 10/20/17 [History] Magnesium 200 mg PO HS 11/07/17 [History] Aspirin 81 mg PO DAILY chew 01/19/18 [Rx] Potassium Gluconate 99 mg PO HS 01/19/18 [History] Sacubitril/Valsartan [Entresto 24 mg-26 mg Tablet] 1 tab PO BID 01/19/18 [History] Furosemide [Lasix] 20 mg PO HS 02/16/19 [History] Follow up Appointment(s)/Referral(s): Kailyn Lima MD [STAFF PHYSICIAN] - 1 Week Patient Instructions/Handouts: *Surgery [facility] - (Anesthesia) Discharge Instructions Outpatient Surgery, Breast Lumpectomy (DC) Activity/Diet/Wound Care/Special Instructions: Do not drive until seen by Dr. Masterson Teaching drain care Patient may shower after 48 hours Discharge Disposition: HOME SELF-CARE
[2019-02-23 16:11] VITALS: TEMP 97
[2019-02-23 17:00] VITALS: BP 110/65; PULSE 61; RESP 18
--- NOTE | 2019-02-24 08:10 | MM ---
Reason for exam: additional evaluation requested from abnormal screening. Last mammogram was performed 2 months ago. History: Patient is postmenopausal, has history of breast cancer at age 78, and has history of other cancer at age 67. Malignant US biopsy breast VAD RT of the right breast, December 28, 2018. Reductions of both breasts, 1996. Took estrogen for 3 years. MG Diagnostic Mammo RT Wo CAD CC and LM view(s) were taken of the right breast. Prior study comparison: December 28, 2018, right breast MG diagnostic mammo RT wo CAD. December 14, 2018, bilateral MG 3d screening mammo w/cad. ASSESSMENT: Post procedure mammogram for marker placement RECOMMENDATION: Ultrasound of the right breast in 6 months. PENDING PATHOLOGY RESULTS.
== END 2019-02-23 17:23 | disposition home or self-care (01) ==
LOC: OR 10:15
PROVIDERS: ATTEND Surgery
DX: C50.411 Malignant neoplasm of upper-outer quadrant of right female breast (principal); L82.1 Other seborrheic keratosis; Z78.0 Asymptomatic menopausal state; Z79.01 Long term (current) use of anticoagulants; Z79.82 Long term (current) use of aspirin; Z80.0 Family history of malignant neoplasm of digestive organs; Z80.8 Family history of malignant neoplasm of other organs or systems; Z85.828 Personal history of other malignant neoplasm of skin; Z90.49 Acquired absence of other specified parts of digestive tract; Z95.0 Presence of cardiac pacemaker; I25.2 Old myocardial infarction; Z86.718 Personal history of other venous thrombosis and embolism; Z87.891 Personal history of nicotine dependence; Z97.4 Presence of external hearing-aid; E03.9 Hypothyroidism, unspecified; Z82.3 Family history of stroke; Z82.49 Family history of ischemic heart disease and other diseases of the circulatory system; Z79.890 Hormone replacement therapy; Z79.899 Other long term (current) drug therapy; Z88.6 Allergy status to analgesic agent; Z88.1 Allergy status to other antibiotic agents; Z88.8 Allergy status to other drugs, medicaments and biological substances; I48.91 Unspecified atrial fibrillation
CPT/HCPCS: 88305; 88342; 88331; 88307; 88341; 77065; 76098; 19285; 19286; 38792; 11401 ×2; 19301; 38525; J2250; J2001 ×2; J1644; J1100; J2405; J3010; J2370; J2704; J1170

== ENCOUNTER → 2019-03-04 | Outpatient (CLI) | payer MEDICARE ==
--- NOTE | 2019-03-04 16:19 | P.PN ---
Subjective Progress Note Date: 03/04/19 Berenice is a 78-year-old white female status post right breast lumpectomy and sentinel [place] [address]. The lesion was a 5 mm invasive carcinoma. Margins were negative for cancer. Lymph nodes were negative. 2 skin lesions were removed which were seborrheic keratosis. The patient has no complaints at this time. Her drain is putting out about 30 cc/day. Stage. [id number] 1A Objective - Constitutional General appearance: Present: average body habitus - EENT Eyes: Present: EOMI ENT: Present: hearing grossly normal - Neck Neck: Present: normal ROM - Respiratory Respiratory: bilateral: CTA - Cardiovascular Rhythm: regular Heart sounds: normal: S1, S2 - Gastrointestinal General gastrointestinal: Present: soft - Integumentary Integumentary Comment(s): Incision clean and dry PHILL site mild irritation PHILL drain to be removed Integumentary: Present: normal turgor - Musculoskeletal Musculoskeletal: Present: gait normal - Psychiatric Psychiatric: Present: A&O x's 3, appropriate affect - Additional findings Additional findings: Right breast: Incision clean and dry PHILL output is serous approximately 30 mL per day for the last several days No evidence of infection or seroma Assessment and Plan Assessment: Impression: 1. Patient status post lumpectomy and sentinel biopsy for stage I a right breast cancer 2. Patient status post bilateral breast reductions 3. Skin lesions benign Plan: 1. Appointment radiation oncology 2. Appointment medical oncology 3. follow up here in three months 4. DC PHILL drain cc: DR. Beavers
[2019-03-04 17:03] VITALS: BP 96/63; PULSE 64; RESP 18; TEMP 97.7; BMI 30.9
== END | disposition home or self-care (01) ==
LOC: WWCWWP 15:44
PROVIDERS: ATTEND Surgery
DX: Z53.9 Procedure and treatment not carried out, unspecified reason (principal)

== ENCOUNTER → 2019-04-30 | Outpatient (CLI) | payer MEDICARE ==
[2019-04-30 10:11] VITALS: BP 108/70; PULSE 85; RESP 18; TEMP 97.7; BMI 30.9
--- NOTE | 2019-04-30 10:50 | P.PN ---
Marino Ng is a 78-year-old white female who was initially seen with a complaint of bleeding from her right nipple complex. She was on a blood thinner and this was stopped. The patient had amammogram done on 12-14-18. This revealed a 7 mm microlobulated mass in the upper outer quadrant in the right breast. Subsequently an ultrasound was performed and the ultrasound confirmed this area. She underwent ultrasound-guided core biopsy of the right breast on 7118. In addition to the 7 mm mass at the 10 o'clock position of the right breast there were 2 lesions 1 at 4 mm and 1-2 mm seen 7 mm apart from the index mass. The index mass was sampled and this was positive for invasive ductal carcinoma grade 1. This is ER/NC positive and HER-2 2 negative. She underwent lumpectomy and SNB on 02-23-19. pathology reveled a [id number] ER/NC +, Her 2-, G1; Stage 1A Patient is doing well at this time, she has some persistent mild swelling under the arm. This is not painful for her. The patient did not have any radiation therapy. She is taking an antiestrogen medication, Anestrazole. Family history: 1. Mother: Colon cancer 2. Sister.: Skin cancer 3. Patient: Skin cancer Hormonal history: Menarche: 17 , one miscarriage, first live at 23, breast fed Yes Menopause: Hysterectomy at 42 did not take ovaries this was done for bleeding control pills: 15 years Hormones: Negative Past surgical history: 1. Cholecystectomy 2. Pacemaker 3. Breast reduction 4. Hernia surgery 5. Colon resection 6. Tonsillectomy 7. Hysterectomy 8. Pacemaker 9. Right breast lumpectomy/sentinel node biopsy Past medical history: 1. Atrial fibrillation pacemaker (Xeralto) 2. [place] 2010 3. DVT 2018 Social history: Smoke: One pack per week for 15 years Stopped smoking in 1995 Alcohol: Twice a month Drugs: Negative - Constitutional Constitutional: Denies chills, Denies fever - EENT Comment: wears glasses, cataracts Ears: left: decreased hearing (Right deaf, heariong aid left ear), deny: tinnitus Ears, nose, mouth and throat: Denies headache, Denies sore throat - Breasts Breasts: bilateral: as per HPI - Cardiovascular Cardiovascular: Reports high blood pressure, Denies chest pain, Denies shortness of breath - Respiratory Comment: former smoker - Gastrointestinal Gastrointestinal: Denies abdominal pain, Denies diarrhea, Denies nausea, Denies vomiting - Genitourinary (Female) Genitourinary: Denies dysuria, Denies hematuria - Menstruation Menstruation: Reports post hysterectomy - Musculoskeletal Comment: arthritis - Integumentary Integumentary: Denies pruritus, Denies rash - Neurological Neurological: Denies numbness, Denies weakness - Psychiatric Psychiatric: Denies anxiety, Denies depression - Endocrine Comment: hypothyroid - Hematologic/Lymphatic Comment: none - Allergic/Immunologic Allergic/Immunologic: Reports seasonal allergies Past Medical History Past Medical History: Atrial Fibrillation, Cancer, Heart Failure, Deep Vein Thrombosis (DVT), GERD/Reflux, Hyperlipidemia, Hypertension, Myocardial Infarction ([place]), Osteoarthritis (OA), Thyroid Disorder Additional Past Medical History / Comment(s): hiatal hernia, arthritis, hx basal skin cancer, hx diverticulitis,pt states some family members have a genetic disorder that causes blood clots- she has not been dx with the disorder, Myocardial Infarction x1 (2010), hypothyroidism Last Myocardial Infarction Date:: 04/2012 History of Any Multi-Drug Resistant Organisms: None Reported Past Surgical History: AICD, Bowel Resection, Breast Surgery, Cardiac Ablation, Cholecystectomy, Heart Catheterization, Hysterectomy, Orthopedic Surgery, Pacemaker, Tonsillectomy Additional Past Surgical History / Comment(s): bilateral breast reduction 1995, arthroscopic rt knee, generator change 2013, partial hysterectomy (bilateral ovaries retained), pacemaker battery replaced October 2018 Past Anesthesia/Blood Transfusion Reactions: No Reported Reaction Additional Past Anesthesia/Blood Transfusion Reaction / Comment(s): No blood transfusions to date (pt had an autolygous transfusion when undergoing bilateral breast reduction) Type of Cardiac Device: Permanent Pacemaker, AICD Device Placement Date:: 2006 Past Psychological History: No Psychological Hx Reported Smoking Status: Former smoker Past Alcohol Use History: Occasional Additional Past Alcohol Use History / Comment(s): smoked for 20 years 1 pack/wk quit 1995 Past Drug Use History: None Reported Objective - Vital Signs Vital signs: Vital Signs Temp 97.7 F 04/30/19 10:08 Pulse 85 04/30/19 10:08 Resp 18 04/30/19 10:08 BP 108/70 04/30/19 10:08 Pulse Ox 95 04/30/19 10:08 Intake & Output 04/29/19 04/30/19 04/30/19 18:59 06:59 18:59 Weight 81.647 kg - Exam BMI 30.9 - Constitutional General appearance: Present: average body habitus - EENT Eyes: Present: EOMI ENT: Present: hearing grossly normal - Neck Neck: Present: normal ROM - Respiratory Respiratory: bilateral: CTA - Cardiovascular Heart sounds: normal: S1, S2 - Gastrointestinal Gastrointestinal Comment(s): no guarding or rebound, liver/spleen normal size General gastrointestinal: Present: soft - Integumentary Integumentary: Present: normal turgor - Musculoskeletal Musculoskeletal: Present: gait normal - Psychiatric Psychiatric: Present: A&O x's 3, appropriate affect, intact judgment & insight - Additional findings Additional findings: Breast examination: Right breast: Well-healed scar from prior surgery Well-healed scars from bilateral reduction mammoplasty Fibrocystic changes, scarring related to prior surgeries no discrete dominant masses or nodules of concern Right axilla: No adenopathy of concern Left breast: Well-healed scars from prior reduction mammoplasty No dominant masses or nodules of concern Left axilla: No adenopathy of concern Patient with pacemaker in place and left chest wall no Evidence of any nipple discharge bilateral Assessment and Plan Assessment: Impression: 1. Patient status post lumpectomy and sentinel node biopsy for stage I a right breast cancer without complaints 2. No evidence of recurrent cancer 3. Bilateral breast reductions 4. Patient has been seen by medical oncology and is started on anastrozole 5. Patient has been seen by radiation oncology and is opted not to have radiation 6. Arthritis 7. Hypercholesterolemia anemia 8. Hypertension Plan: 1. Continue surveillance with repeat examination in 4 months 2. Repeat right breast mammogram prior to next visit 3. Left breast mammogram on schedule November 2019 CC: Dr. Ze Richard have consulted and discussed with the patient her treatment choices. She is opted not to have radiation and is taking anastrozole. She is not having any side effects from the anastrozole therapy bothering her at this time. She will continue to follow with respect to this with medical oncology.
== END ==
LOC: WWCWWP 09:01
PROVIDERS: ATTEND Surgery
DX: Z53.9 Procedure and treatment not carried out, unspecified reason (principal)

== ENCOUNTER 2019-11-17 09:34 | Emergency (ER) | payer MEDICARE ==
[2019-11-17 09:40] VITALS: RESP 18; TEMP 98.7
--- NOTE | 2019-11-17 10:06 | ED ---
General Adult HPI - General Chief complaint: Chest Pain Stated complaint: Chest Pain Time Seen by Provider: 11/17/19 09:47 Source: patient Mode of arrival: ambulatory Limitations: no limitations - History of Present Illness Initial comments: Dictation was produced using [employer] / [employer] dictation software. please excuse any grammatical, word or spelling errors. This patient was cared for during a federal and state declared state of emergency secondary to Covid 19 Chief Complaint: 78-year-old female with past medical history of atrial fibrill ation, heart failure, DVT presents with left-sided chest pain. History of Present Illness: 78-year-old female she has multiple comorbidities presents today with left-sided chest pain. Patient locates the into her left lower chest. She states sharp and worse when she takes deep breath. She also c omplains of some left shoulder cramping. Denies any exacerbation or mitigating factors for her left shoulder pain. She states that the left shoulder pain is associated with the left chest pain. Denies any fever, chills or night sweats. No cough. Patient states she has history of pleural effusion in the past. She does take rivaroxaban. The ROS documented in this emergency department record has been reviewed and confirmed by me. Those systems with pertinent positive or negative responses have been documented in the HPI. All other systems are other negative and/or noncontributory. PHYSICAL EXAM: General Impression: Alert and oriented x3, not in acute distress HEENT: Normocephalic atraumatic, extra-ocular movements intact, pupils equal and reactive to light bilaterally, mucous membranes moist. Cardiovascular: Heart regular rate and rhythm, no murmurs Chest: Able to complete full sentences, no retractions, no tachypnea, bilateral breath sounds Abdomen: abdomen soft, non-tender, non-distended, no organomegaly Musculoskeletal: Pulses present and equal in all extremities, no peripheral edema Motor: no focal deficits noted Neurological: CN II-XII grossly intact, no focal motor or sensory deficits noted Skin: Intact with no visualized rashes Psych: Normal affect and mood ED course: 78-year-old female presents today with atypical chest pain. All signs upon arrival are within acceptable limits. Laboratory evaluation obtained. CBC shows no acute processes. Metabolic panel is unremarkable. Chest x-ray is nonacute. Patient given Lidoderm patch. Clinical presentation likely secondary to acute chest strain. Patient be discharged. She is advised follow-up with primary care physician or for follow- up of symptoms. EKG interpretation: Ventricular rate 60, paced rhythm, QRS 138, QTC 484. No IN prolongation, no QTC prolongation, no ST or T-wave changes noted. . Overall, this EKG is unremarkable - Related Data Home Medications Medication Instructions Recorded Confirmed Digoxin [Lanoxin] 125 mcg PO DAILY 11/30/13 04/30/19 Furosemide [Lasix] 40 mg PO DAILY 11/30/13 04/30/19 Rivaroxaban [Xarelto] 20 mg PO HS 11/30/13 04/30/19 Spironolactone [Aldactone] 25 mg PO DAILY 11/30/13 04/30/19 Multivitamins, Thera [Multivitamin 1 tab PO HS 01/20/14 04/30/19 (formulary)] Ubidecarenone [Coq-10] 100 mg PO HS 01/20/14 04/30/19 Atorvastatin [Lipitor] 40 mg PO DAILY 10/20/17 04/30/19 L.acidoph,Paracasei, B.lactis 1 tab PO HS 10/20/17 04/30/19 [Probiotic] Levothyroxine Sodium [Synthroid] 75 mcg PO MOTUWETH 10/20/17 04/30/19 Levothyroxine Sodium [Synthroid] 150 mcg PO SUFRSA 10/20/17 04/30/19 Metoprolol Succinate (ER) [Toprol 200 mg PO DAILY 10/20/17 04/30/19 XL] Magnesium 200 mg PO HS 11/07/17 04/30/19 Potassium Gluconate 99 mg PO HS 01/19/18 04/30/19 Sacubitril/Valsartan [Entresto 24 1 tab PO BID 01/19/18 04/30/19 mg-26 mg Tablet] Furosemide [Lasix] 20 mg PO HS 02/16/19 04/30/19 Previous Rx's Medication Instructions Recorded Aspirin 81 mg PO DAILY chew 01/19/18 Allergies Allergy/AdvReac Type Severity Reaction Status Date / Time ibuprofen [From Motrin] AdvReac Swelling Verified 04/30/19 10:07 levofloxacin [From Levaquin] AdvReac Rash/Hives Verified 04/30/19 10:07 adhesive tape AdvReac blisters Uncoded 04/30/19 10:07 Review of Systems ROS Statement: Those systems with pertinent positive or pertinent negative responses have been documented in the HPI. ROS Other: All systems not noted in ROS Statement are negative. Past Medical History Past Medical History: Atrial Fibrillation, Cancer, Heart Failure, Deep Vein Thrombosis (DVT), GERD/Reflux, Hyperlipidemia, Hypertension, Myocardial Infarction ([place]), Osteoarthritis (OA), Thyroid Disorder Additional Past Medical History / Comment(s): hiatal hernia, hx basal skin cancer, hx diverticulitis,pt states some family members have a genetic disorder that causes blood clots- she has not been dx with the disorder, Myocardial Infarction x1 (2010), hypothyroidism Last Myocardial Infarction Date:: 04/2012 History of Any Multi-Drug Resistant Organisms: None Reported Past Surgical History: AICD, Bowel Resection, Breast Surgery, Cardiac Ablation, Cholecystectomy, Heart Catheterization, Hysterectomy, Orthopedic Surgery, Tonsillectomy Additional Past Surgical History / Comment(s): bilateral breast reduction 1995, arthroscopic rt knee, partial hysterectomy (bilateral ovaries retained), pacemaker battery replaced October 2018 Past Anesthesia/Blood Transfusion Reactions: No Reported Reaction Additional Past Anesthesia/Blood Transfusion Reaction / Comment(s): No blood transfusions to date (pt had an autolygous transfusion when undergoing bilateral breast reduction). Type of Cardiac Device: Permanent Pacemaker, AICD Device Placement Date:: 2006 (info from pt's [employer]- [id number],model#[id number]) Past Psychological History: No Psychological Hx Reported Smoking Status: Former smoker Past Alcohol Use History: Occasional Past Drug Use History: None Reported - Past Family History Mother Family Medical History: Cancer Additional Family Medical History / Comment(s): colon cancer dx at age 74, at age 84 Sister(s) Family Medical History: Cancer, CVA/TIA, Deep Vein Thrombosis (DVT) Additional Family Medical History / Comment(s): pt has 2 sisters: sister #1: at age 79 from stroke complications (also had a hx of blood clots). sister #2: had a cancerous tumor on aortic valve Son(s) Family Medical History: Deep Vein Thrombosis (DVT) Brother(s) Family Medical History: CVA/TIA, Deep Vein Thrombosis (DVT) Additional Family Medical History / Comment(s): She has 1 brother with a history of stroke and blood clot Father Family Medical History: Congestive Heart Failure (CHF) General Exam Limitations: no limitations Course Vital Signs 11/17/19 11/17/19 09:36 11:00 Temperature 98.7 F Pulse Rate 77 60 Respiratory 18 18 Rate Blood Pressure 106/62 110/65 O2 Sat by Pulse 100 96 Oximetry Medical Decision Making - Lab Data Result diagrams: 11/17/19 09:42 11/17/19 09:42 Lab Results 11/17/19 11/17/19 11/17/19 Range/Units 09:42 09:42 09:42 WBC 11.0 H (3.8-10.6) k/uL RBC 4.09 (3.80-5.40) m/uL Hgb 12.5 (11.4-16.0) gm/dL Hct 38.6 (34.0-46.0) % MCV 94.4 (80.0-100.0) fL MCH 30.6 (25.0-35.0) pg MCHC 32.5 (31.0-37.0) g/dL RDW 12.8 (11.5-15.5) % Plt Count 179 (150-450) k/uL Neutrophils % 69 % Lymphocytes % 19 % Monocytes % 8 % Eosinophils % 2 % Basophils % 0 % Neutrophils # 7.5 (1.3-7.7) k/uL Lymphocytes # 2.1 (1.0-4.8) k/uL Monocytes # 0.9 (0-1.0) k/uL Eosinophils # 0.3 (0-0.7) k/uL Basophils # 0.0 (0-0.2) k/uL Sodium 138 (137-145) mmol/L Potassium 4.6 (3.5-5.1) mmol/L Chloride 99 (98-107) mmol/L Carbon Dioxide 29 (22-30) mmol/L Anion Gap 10 mmol/L BUN 28 H (7-17) mg/dL Creatinine 1.17 H (0.52-1.04) mg/dL Est GFR (CKD-EPI)AfAm 52 (>60 ml/min/1.73 sqM) Est GFR (CKD-EPI)NonAf 45 (>60 ml/min/1.73 sqM) Glucose 101 H (74-99) mg/dL Calcium 9.8 (8.4-10.2) mg/dL Magnesium 2.1 (1.6-2.3) mg/dL NT-Pro-B Natriuret Pep 1150 pg/mL Lipase 220 (23-300) U/L Disposition Clinical Impression: Chest wall muscle strain Disposition: HOME SELF-CARE Condition: Good Instructions (If sedation given, give patient instructions): Chest Pain (ED) Is patient prescribed a controlled substance at d/c from ED?: No Referrals: Kostas Kunz MD [Primary Care Provider] - 1-2 days Time of Disposition: 11:35
[2019-11-17 10:25] LABS: Basophils % (A) 0 %; Eosinophils # (A) 0.3 k/uL (0-0.7); Eosinophils % (A) 2 %; HCT 38.6 % (34.0-46.0); HGB 12.5 gm/dL (11.4-16.0); Lymphocytes # (A) 2.1 k/uL (1.0-4.8); Lymphocytes % (A) 19 %; MCH 30.6 pg (25.0-35.0); MCHC 32.5 g/dL (31.0-37.0); MCV 94.4 fL (80.0-100.0); Mean Platelet Volume 8.8; Monocytes # (A) 0.9 k/uL (0-1.0); Monocytes % (A) 8 %; Neutrophils # (A) 7.5 k/uL (1.3-7.7); Neutrophils % (A) 69 %; Platelet Count 179 k/uL (150-450); RBC 4.09 m/uL (3.80-5.40); RDW 12.8 % (11.5-15.5)
--- NOTE | 2019-11-17 10:37 | XR ---
EXAMINATION TYPE: XR chest 2V DATE OF EXAM: 11/17/2019 COMPARISON: Chest x-ray January 19, 2018 HISTORY: Left-sided chest pain. TECHNIQUE: Frontal and lateral views of the chest are obtained. FINDINGS: There is chronic parenchymal changes without suspicious focal air space opacity, pleural e ffusion, or pneumothorax seen. The cardiac silhouette size remains enlarged with multiple lead pacem juan/AICD. Cholecystectomy clips incidentally noted. Overlying EKG leads are present currently. Event ration anterior aspect right hemidiaphragm. Osseous structures remain demineralized. Surgical clips o verlying right breast are now noted. IMPRESSION: Chronic changes and cardiomegaly without acute process.
[2019-11-17 10:40] LABS: Calcium 9.8 mg/dL (8.4-10.2); Magnesium 2.1 mg/dL (1.6-2.3); Potassium 4.6 mmol/L (3.5-5.1)
[2019-11-17] MEDS ORDERED: LIDOCAINE 5% PATCH TOPICAL STA (11:04)
[2019-11-17 11:45] VITALS: BP 116/69; PULSE 61
== END 2019-11-17 11:43 | disposition home or self-care (01) ==
LOC: EC 09:34
DX: S29.011A Strain of muscle and tendon of front wall of thorax, initial encounter (principal); I48.91 Unspecified atrial fibrillation; I11.0 Hypertensive heart disease with heart failure; I50.9 Heart failure, unspecified; E78.5 Hyperlipidemia, unspecified; I25.2 Old myocardial infarction; E03.9 Hypothyroidism, unspecified; Z79.01 Long term (current) use of anticoagulants; Z79.890 Hormone replacement therapy; Z79.899 Other long term (current) drug therapy; Z88.6 Allergy status to analgesic agent; Z88.1 Allergy status to other antibiotic agents; Z91.048 Other nonmedicinal substance allergy status; Z95.810 Presence of automatic (implantable) cardiac defibrillator; Z87.891 Personal history of nicotine dependence; Z86.718 Personal history of other venous thrombosis and embolism; Z85.828 Personal history of other malignant neoplasm of skin
CPT/HCPCS: 36415; 71046; 80048; 83690; 83735; 83880; 85025; 93005; 99285

== ENCOUNTER → 2019-12-21 | Outpatient (CLI) | payer MEDICARE ==
--- NOTE | 2019-12-21 09:33 | MM ---
Reason for exam: additional evaluation requested from prior study. Last mammogram was performed 10 months ago. History: Patient is postmenopausal, has history of breast cancer at age 78, and has history of other cancer at age 67. Malignant US breast localization RT of the right breast, February 23, 2019. Lumpectomy of the right breast, February 23, 2019. Malignant US biopsy breast VAD RT of the right breast, December 28, 2018. Reductions of both breasts, 1996. Took estrogen for 3 years. Physical Findings: Nurse did not find any significant physical abnormalities on exam. MG 3D Diag Mammo W/Cad JOSEPH Bilateral CC and MLO view(s) were taken. Prior study comparison: February 23, 2019, right breast MG diagnostic mammo RT wo CAD. December 28, 2018, right breast MG diagnostic mammo RT wo CAD. December 14, 2018, bilateral MG 3d screening mammo w/cad. November 28, 2016, bilateral MG 3d screening mammo w/cad. There are scattered fibroglandular densities. Finding #1: Architectural distortion in the right breast consistent with known lumpectomy changes. Finding #2: There are typically benign dystrophic, round calcifications in both breasts. There is no discrete abnormality. Left axillary pacemaker. These results were verbally communicated with the patient and result sheet given to the patient on 12/21/19. ASSESSMENT: Benign, BI-RAD 2 RECOMMENDATION: Follow-up diagnostic mammogram of both breasts in 1 year.
== END ==
LOC: RADMAMWWP 08:52
PROVIDERS: ATTEND Surgery
DX: Z08 Encounter for follow-up examination after completed treatment for malignant neoplasm (principal); Z85.3 Personal history of malignant neoplasm of breast
CPT/HCPCS: 77066; G0279; 77062

== ENCOUNTER → 2019-12-23 | Outpatient (CLI) | payer MEDICARE ==
[2019-12-23 13:45] VITALS: BP 104/65; PULSE 80; RESP 18; TEMP 98.5
--- NOTE | 2019-12-23 14:37 | P.PN ---
Subjective Progress Note Date: 12/23/19 Principal diagnosis: STage 1A right breast cancer Berenice is a 78-year-old white female who was initially seen with a complaint of bleeding from her right nipple complex. She was on a blood thinner and this was stopped. The patient had amammogram done on 12-14-18. This r evealed a 7 mm microlobulated mass in the upper outer quadrant in the right breast. Subsequently an ultrasound was performed and the ultrasound confirmed this area. She underwent ultrasound-guided core biopsy of the right breast on 7118. In addition to the 7 mm mass at the 10 o'clock position of the right breast there were 2 lesions 1 at 4 mm and 1-2 mm seen 7 mm apart from the index mass. The index mass was sampled and this was positive for invasive ductal carcinoma grade 1. This is ER/OK positive and HER-2 2 negative. She underwent lumpectomy and SNB on 02-23-19. pathology reveled a [id number] ER/OK +, Her 2-, G1; Stage 1A; She did not have radiation therapy. Patient is doing well at this time, she has some persistent mild swelling under the arm. This is not painful for her. The patient did not have any radiation therapy. She is taking an antiestrogen medication, Anestrazole. The patient has no complaints at this time related to her breast. The patient complains of her thinning and diarrhea since she has been started on the anastrozole. The patient had a bilateral mammogram in . This was benign BIRADS 2 and follow-up diagnostic mammogram of the breast in 1 year was recommended. Family history: 1. Mother: Colon cancer 2. Sister.: Skin cancer 3. Patient: Skin cancer Hormonal history: Menarche: 17 , one miscarriage, first live at 23, breast fed Yes Menopause: Hysterectomy at 42 did not take ovaries this was done for bleeding control pills: 15 years Hormones: Negative Past surgical history: 1. Cholecystectomy 2. Pacemaker 3. Breast reduction 4. Hernia surgery 5. Colon resection 6. Tonsillectomy 7. Hysterectomy 8. Pacemaker 9. Right breast lumpectomy/sentinel node biopsy Past medical history: 1. Atrial fibrillation pacemaker (Xeralto) 2. [place] 2010 3. DVT 2017 Social history: Smoke: One pack per week for 15 years Stopped smoking in 1995 Alcohol: Twice a month Drugs: Negative - Constitutional Constitutional: Denies chills, Denies fever - EENT Comment: wears glasses, cataracts Ears: left: decreased hearing (Right deaf, heariong aid left ear), deny: tinnitus Ears, nose, mouth and throat: Denies headache, Denies sore throat - Breasts Breasts: bilateral: as per HPI - Cardiovascular Cardiovascular: Reports high blood pressure, Denies chest pain, Denies shortness of breath - Respiratory Comment: former smoker - Gastrointestinal Gastrointestinal: Denies abdominal pain, Denies diarrhea, Denies nausea, Denies vomiting - Genitourinary (Female) Genitourinary: Denies dysuria, Denies hematuria - Menstruation Menstruation: Reports post hysterectomy - Musculoskeletal Comment: arthritis - Integumentary Integumentary: Denies pruritus, Denies rash - Neurological Neurological: Denies numbness, Denies weakness - Psychiatric Psychiatric: Denies anxiety, Denies depression - Endocrine Comment: hypothyroid - Hematologic/Lymphatic Comment: none - Allergic/Immunologic Allergic/Immunologic: Reports seasonal allergies Past Medical History Past Medical History: Atrial Fibrillation, Cancer, Heart Failure, Deep Vein Thrombosis (DVT), GERD/Reflux, Hyperlipidemia, Hypertension, Myocardial Infarction (TN), Osteoarthritis (OA), Thyroid Disorder Additional Past Medical History / Comment(s): hiatal hernia, arthritis, hx basal skin cancer, hx diverticulitis,pt states some family members have a genetic disorder that causes blood clots- she has not been dx with the disorder, Myocardial Infarction x1 (2010), hypothyroidism Last Myocardial Infarction Date:: 04/2012 History of Any Multi-Drug Resistant Organisms: None Reported Past Surgical History: AICD, Bowel Resection, Breast Surgery, Cardiac Ablation, Cholecystectomy, Heart Catheterization, Hysterectomy, Orthopedic Surgery, Pacemaker, Tonsillectomy Additional Past Surgical History / Comment(s): bilateral breast reduction 1995, arthroscopic rt knee, generator change 2013, partial hysterectomy (bilateral ovaries retained), pacemaker battery replaced October 2018 Past Anesthesia/Blood Transfusion Reactions: No Reported Reaction Additional Past Anesthesia/Blood Transfusion Reaction / Comment(s): No blood tr ansfusions to date (pt had an autolygous transfusion when undergoing bilateral breast reduction) Type of Cardiac Device: Permanent Pacemaker, AICD Device Placement Date:: 2006 Past Psychological History: No Psychological Hx Reported Smoking Status: Former smoker Past Alcohol Use History: Occasional Additional Past Alcohol Use History / Comment(s): smoked for 20 years 1 pack/wk quit 1995 Past Drug Use History: None Reported Objective - Vital Signs Vital signs: Vital Signs Temp 98.5 F 12/23/19 13:42 Pulse 80 12/23/19 13:42 Resp 18 12/23/19 13:42 BP 104/65 12/23/19 13:42 Pulse Ox 96 12/23/19 13:42 Intake & Output 12/22/19 12/23/19 12/23/19 18:59 06:59 18:59 Weight 79.379 kg - Exam BMI 30 - Constitutional General appearance: Present: average body habitus - EENT Eyes: Present: EOMI ENT: Present: hearing grossly normal - Neck Neck: Present: normal ROM - Respiratory Respiratory: bilateral: CTA - Cardiovascular Rhythm: regular Heart sounds: normal: S1, S2 - Gastrointestinal General gastrointestinal: Present: normal bowel sounds, soft - Integumentary Integumentary: Present: normal turgor - Musculoskeletal Musculoskeletal: Present: gait normal - Psychiatric Psychiatric: Present: A&O x's 3, appropriate affect, intact judgment & insight - Additional findings Additional findings: breast exam: BRA 36C inspection: ptosis grade 1/2 bilateral, well-healed scars from prior reduction mammoplasty bilateral Palpation: Right breast: Postop changes, no dominant masses or nodules of concern, fibrocystic changes multiple positional exam Right axilla: No adenopathy of concern Left breast: Multiple positional exam fibrocystic changes without dominant masses or nodules of concern, defibrillator in the left chest wall Left axilla: No adenopathy of concern Assessment and Plan Assessment: Impression: 1. Atrial fibrillation pacemaker (Xeralto) 2. [place] 2010 3. DVT 2017 4. Stage IA right breast cancer treated with lumpectomy and sentinel node biopsy/no evidence of recurrent disease 5. Patient on anastrozole with side effects most likely her thickening and diarrhea Plan: 1. Repeat bilateral mammogram in 1 year 2. Repeat examination here in 4 months time 3. Discuss anastrozole with Dr. Cabezas 4. repeat right breast ultrasound and followup CC: DR. Kunz We have discussed side effects of anastrozole. These may include diarrhea and thickening of her. She is going to discuss the need to stay on this Dr. Cabezas. At this time there is no need for any further surgical intervention. encounter 20 minutes, > 50% of time in planning and counselling
== END | disposition home or self-care (01) ==
LOC: WWCWWP 13:28
PROVIDERS: ATTEND Surgery
DX: Z53.9 Procedure and treatment not carried out, unspecified reason (principal)

== ENCOUNTER → 2020-01-17 | Outpatient (CLI) | payer MEDICARE ==
--- NOTE | 2020-01-17 09:56 | USB ---
Reason for exam: clinical finding. History: Patient is postmenopausal, has history of breast cancer at age 78, and has history of other cancer at age 67. Malignant US breast localization RT of the right breast, February 23, 2019. Lumpectomy of the right breast, February 23, 2019. Malignant US biopsy breast VAD RT of the right breast, December 28, 2018. Reductions of both breasts, 1996. Took estrogen for 3 years. Physical Findings: Nurse did not find any significant physical abnormalities on exam. US Breast RT Technologist: Lupe Levi Right complete breast ultrasound includes all four quadrants, the retroareolar region and axilla. Finding demonstrates no cystic or solid lesion seen. These results were verbally communicated with the patient and result sheet given to the patient on 01/17/20. ASSESSMENT: Negative, BI-RAD 1 RECOMMENDATION: Routine screening mammogram of both breasts in 1 year. Back on schedule for November 2020.
== END | disposition home or self-care (01) ==
LOC: RADUSWWP 08:41
PROVIDERS: ATTEND Surgery
DX: Z08 Encounter for follow-up examination after completed treatment for malignant neoplasm (principal); Z85.3 Personal history of malignant neoplasm of breast

== ENCOUNTER → 2020-01-27 | Outpatient (CLI) | payer MEDICARE ==
[2020-01-27 10:26] VITALS: BP 101/66; PULSE 70; RESP 20; TEMP 97.8
--- NOTE | 2020-01-27 10:39 | P.PN ---
Progress Note - Text Progress Note Date: 01/27/20 STage 1A right breast cancer Berenice is a 78-year-old white female who was initially seen with a complaint of bleeding from her right nipple complex. She was on a blood thinner and this was stopped. The patient had amammogram done on 12-14-18. This revealed a 7 mm microlobulated mass in the upper outer quadrant in the right breast. Subsequently an ultrasound was performed and the ultrasound confirmed this area. She underwent ultrasound-guided core biopsy of the right breast on 7118. In addition to the 7 mm mass at the 10 o'clock position of the right breast there were 2 lesions 1 at 4 mm and 1-2 mm seen 7 mm apart from the index mass. The index mass was sampled and this was positive for invasive ductal carcinoma grade 1. This is ER/IA positive and HER-2 2 negative. She underwent lumpectomy and SNB on 02-23-19. pathology reveled a [id number] ER/IA +, Her 2-, G1; Stage 1A; She did not have radiation therapy. Patient is doing well at this time, she has some persistent mild swelling under the arm. This is not painful for her. The patient did not have any radiation therapy. She was taking an antiestrogen medication, Anestrazole but has stopped this medication. It was causing diahrea. The patient has no complaints at this time related to her breast. The patient complained of hair thinning this has improved since stopping the anestrazole and diarrhea has improved since she has stopped the anastrozole. [place] [address]. This was benign BIRADS 2 and follow-up diagnostic mammogram of the breast in 1 year was recommended. The lesion was biopsied under ultrasound and therefore have recommended admission to [facility] breast ultrasound. This was performed on . This was negative BIRADS 1. Impression: 1. Patient status post stage I a right breast cancer lumpectomy 2. BIRADS 1 ultrasound of the right breast Plan: 1. Follow-up examination here in 6 months 2. Continue to follow up with medical oncology 3. Bilateral mammogram in November 2020 cc: DR. Beavers encounter 10 minutes, > 50% of time in planning and counselling
== END ==
LOC: WWCWWP 10:10
PROVIDERS: ATTEND Surgery
DX: Z53.9 Procedure and treatment not carried out, unspecified reason (principal)

== ENCOUNTER → 2020-02-11 | Outpatient (CLI) | payer MEDICARE ==
--- NOTE | 2020-02-11 16:40 | US ---
EXAMINATION TYPE: US kidneys/renal and bladder DATE OF EXAM: 02/11/2020 COMPARISON: CT 2018 CLINICAL HISTORY: N18.3 CKD, stage 3. EXAM MEASUREMENTS: Right Kidney: 8.5 x 3.9 x 4.0 cm Left Kidney: 9.5 x 4.3 x 6.2 cm Right Kidney: No hydronephrosis or masses seen Left Kidney: upper/lateral cyst measures 3.4 x 3.1 x 3.3 cm. Bladder: not well distended Bilateral Jets seen: No When scanning right kidney adjacent liver is heterogeneously hyperechoic consistent with mild diffuse fatty infiltration. Some increased cortical echogenicity right kidney. There is simple appearing jus t over 3 cm thin-walled cyst upper pole left kidney laterally corresponding to recent CT. No new hydr onephrosis identified bilaterally. Bladder is poorly distended. IMPRESSION: No hydronephrosis noted bilaterally.
== END | disposition home or self-care (01) ==
LOC: RADUSWWP 15:31
PROVIDERS: ATTEND Internal Medicine
DX: N18.3 Chronic kidney disease, stage 3 (moderate) (principal)
CPT/HCPCS: 76770

== ENCOUNTER → 2020-03-22 | Outpatient (CLI) | payer MEDICARE ==
--- NOTE | 2020-03-22 10:57 | XR ---
EXAM TYPE: LUMBAR SPINE X RAY SERIES COMPARISON: 02/22/2014 HISTORY: Pain TECHNIQUE: 4 views are submitted. FINDINGS: Alignment is anatomic. The pedicles are intact. The transverse processes are intact. There is no s pondylolisthesis. Curvature of the spine with surgical clips in the right upper quadrant. There is m ultilevel degenerative disc disease with the most marked changes at L3-4, L4-5 and L5-S1. Severe face t arthropathy. Vascular calcifications noted. IMPRESSION: 1. Severe multilevel degenerative disc disease and facet arthropathy. Findings similar to the prior e xam.
--- NOTE | 2020-03-22 10:59 | XR ---
EXAMINATION TYPE: XR sacrum coccyx DATE OF EXAM: 03/22/2020 COMPARISON: NONE HISTORY: Pain Three views are submitted. Sacrum is intact. SI joints are symmetric. Calcification the pelvis are likely vascular. Arthropathy of the hips. No destructive changes seen. Degenerative change lower lumb ar spine. IMPRESSION: 1. Degenerative changes lower lumbar spine.
== END | disposition home or self-care (01) ==
LOC: RADXRMAIN 10:20
PROVIDERS: ATTEND Internal Medicine Hematology & Oncology
DX: C50.411 Malignant neoplasm of upper-outer quadrant of right female breast (principal); M51.36 Other intervertebral disc degeneration, lumbar region; M51.37 Other intervertebral disc degeneration, lumbosacral region; M47.816 Spondylosis without myelopathy or radiculopathy, lumbar region; M47.817 Spondylosis without myelopathy or radiculopathy, lumbosacral region; E78.00 Pure hypercholesterolemia, unspecified; Z17.0 Estrogen receptor positive status [ER+]
CPT/HCPCS: 72100; 72220

== ENCOUNTER → 2020-03-31 | Day surgery (SDC) | payer MEDICARE ==
[~2020-03-31] MED LIST changes: -DEXAMETHASONE SOD PHOSPHATE 10 MG/ML 1 ML VIAL IV ONE; -HEPARIN SODIUM,PORCINE 5,000 UNIT/ML 1 ML VIAL SQ ONE; -HYDROmorphone 0.5 MG/0.5 ML SYRINGE IVP PRN; +LIDOCAINE 1% (10MG/ML) FOR IV START INTRADERMA PRN; -MIDAZOLAM 2 MG/2 ML VIAL IV PRN; -ONDANSETRON 4 MG/2 ML VIAL IVP ONE; +PROPOFOL 10 MG/ML 20 ML VIAL IV ONE; -Pre Op ABX Message 1 EACH MISC MISCELLANE ONE
[2020-03-31 10:50] VITALS: TEMP 97.2
--- NOTE | 2020-03-31 12:03 | P.PCN ---
Date of Procedure: 03/31/20 Procedure(s) Performed: BRIEF HISTORY: Patient is 79-year-old pleasant white female scheduled for an elective colonoscopy as a part of screening for colorectal neoplasia. She has family history of colon cancer diagnosed in her mother at age 70. PROCEDURE PERFORMED: Colonoscopy. PREOPERATIVE DIAGNOSIS: Screening for colon cancer/family history of colon cancer. IV sedation per Anesthesia. PROCEDURE: After informed consent was obtained, the patient, was brought into the endoscopy unit. IV sedation was administered by Anesthesia under continuous monitoring. Digital rectal examination was normal. Initially the Olympus CF-160 flexible video colonoscope was then inserted in the rectum, gradually advanced into the cecum without any difficulty. Careful examination was performed as the scope was gradually being withdrawn. Ileocecal valve and the appendiceal orifice were visualized and appeared normal. Prep was excellent. Mucosa of the cecum, ascending colon, transverse colon, descending colon, sigmoid colon, and rectum appeared normal. Evidence of anastomosis was located at 20 cm from the anal was there appeared normal.Retroflexion was performed in the rectum and no lesions were seen. The patient tolerated the procedure well. IMPRESSION: Scattered sigmoid diverticulosis No evidence of colorectal neoplasia RECOMMENDATIONS: Findings of this examination were discussed with the patient as well as a family. She was advised to be a high-fiber diet and take fiber supplements a regular basis. She can have a repeat screening colonoscopy in 5 years from now because of the family history of colon cancer.
[2020-03-31 12:18] VITALS: BP 110/56; PULSE 67; RESP 16
== END ==
LOC: ORWHC2ENDO 09:42
PROVIDERS: ATTEND Internal Medicine Gastroenterology
DX: Z12.11 Encounter for screening for malignant neoplasm of colon (principal); K57.30 Diverticulosis of large intestine without perforation or abscess without bleeding; H91.91 Unspecified hearing loss, right ear; E78.5 Hyperlipidemia, unspecified; I48.91 Unspecified atrial fibrillation; E07.9 Disorder of thyroid, unspecified; Z80.0 Family history of malignant neoplasm of digestive organs; Z98.0 Intestinal bypass and anastomosis status; Z91.09 Other allergy status, other than to drugs and biological substances; Z88.6 Allergy status to analgesic agent; Z88.1 Allergy status to other antibiotic agents; Z97.4 Presence of external hearing-aid; Z79.01 Long term (current) use of anticoagulants; Z79.890 Hormone replacement therapy; Z95.810 Presence of automatic (implantable) cardiac defibrillator; Z87.19 Personal history of other diseases of the digestive system; Z90.49 Acquired absence of other specified parts of digestive tract; Z90.89 Acquired absence of other organs
CPT/HCPCS: J2704; G0105

== ENCOUNTER → 2020-05-11 | Outpatient (CLI) | payer MEDICARE ==
[2020-05-11 14:48] LABS: African American GFR (CKD) 38.5 (60.0-200.0); Anion Gap 9.3 mmol/L (4.00-12.00); BUN/Creat Ratio 18.67 Ratio (12.00-20.00); Calcium 9.9 mg/dL (8.7-10.3); Carbon Dioxide 28.7 mmol/L (21.6-31.8); Magnesium 2.2 mg/dL (1.5-2.4); Non-African American GFR(CKD) 33.3 (60.0-200.0); Potassium 4.5 mmol/L (3.5-5.5)
== END | disposition home or self-care (01) ==
LOC: LABWHC1 07:53
PROVIDERS: ATTEND Nurse Practitioner Adult Health
DX: N18.32 Chronic kidney disease, stage 3b (principal)
CPT/HCPCS: 36415; 80048; 83735

== ENCOUNTER 2020-06-09 10:12 | Inpatient (IN) | payer MEDICARE ==
[2020-06-09 10:57] LABS: Basophils % (A) 0 %; Eosinophils # (A) 0.1 k/uL (0-0.7); Eosinophils % (A) 1 %; HCT 40.7 % (34.0-46.0); HGB 13.7 gm/dL (11.4-16.0); Lymphocytes # (A) 1.8 k/uL (1.0-4.8); Lymphocytes % (A) 9 %; MCHC 33.7 g/dL (31.0-37.0); Monocytes # (A) 1.3 k/uL (0-1.0); Monocytes % (A) 7 %; Neutrophils # (A) 15.8 k/uL (1.3-7.7); Neutrophils % (A) 83 %; Platelet Count 238 k/uL (150-450); RBC 4.42 m/uL (3.80-5.40); RDW 12.7 % (11.5-15.5); WBC 19.2 k/uL (3.8-10.6)
[2020-06-09 11:19] LABS: INR 1.2 (<1.2); Partial Thromboplastin Time 29.7 sec (22.0-30.0); Prothrombin Time 12.3 sec (9.0-12.0)
[2020-06-09 11:20] LABS: Albumin 4.5 g/dL (3.5-5.0); Calcium 9.9 mg/dL (8.4-10.2); Potassium 4.2 mmol/L (3.5-5.1); Total Bilirubin 1.5 mg/dL (0.2-1.3); Total Protein 7.9 g/dL (6.3-8.2)
[2020-06-09 11:22] LABS: Appearance,Urine Clear (Clear); Bilirubin,Urine Negative (Negative); Blood,Urine Negative (Negative); Color,Urine Light Yellow; Glucose,Urine (UA) Negative (Negative); Ketones,Urine Negative (Negative); Leukocyte Esterase,Urine Large (Negative); Mucus,Urine Rare /hpf; Nitrite,Urine Negative (Negative); Protein,Urine Negative (Negative); RBC,Urine 1 /hpf (0-5); Specific Gravity,Urine 1.006 (1.001-1.035); Squamous Epithelial Cell,Urine 1 /hpf (0-4); Urobilinogen,Urine <2.0 mg/dL (<2.0); WBC,Urine 6 /hpf (0-5)
[2020-06-09] MEDS ORDERED: MORPHINE SULFATE 4 MG/ML SYRINGE IVP STA (11:29)
[2020-06-09] MEDS ORDERED: cefTRIAXone IN SWFI 1,000 MG/10 ML SYRINGE IVP STA (12:06)
[2020-06-09] MEDS ORDERED: metroNIDAZOLE-NS PMX 500 MG in SALINE 1 100ML.BAG IVPB STA (12:06)
--- NOTE | 2020-06-09 12:10 | CT ---
EXAMINATION TYPE: CT abdomen pelvis wo con DATE OF EXAM: 06/09/2020 COMPARISON: 01/19/2018 HISTORY: 79-year-old female abdominal pain CT DLP: 622.3 mGycm. Automated exposure control for dose reduction was used. TECHNIQUE: Contiguous axial scanning of the abdomen and pelvis without IV contrast. Coronal and sagit shailesh reconstructions performed. FINDINGS: Right atrial, right ventricular, and coronary sinus leads. Heart mildly enlarged. Some patchy atelect asis at the left base. No pleural effusion. Tiny hiatal hernia. Liver measures enlarged at 20.2 cm. A couple hypodense hepatic lesions are unchanged measuring up to 1.6 cm suggesting cysts. Cholecystectomy clips. Noncontrast appearance of the adrenal glands, spleen with hilar splenule, and pancreas show no gross abnormal body. Fat density interposed within a cortical defect measuring 1.3 cm lateral lower pole right kidney coul d represent an AML or other cortical defect, unchanged from prior. 3.6 cm lateral left renal cyst. Mild to moderate atherosclerotic calcifications infrarenal abdominal aorta with minimal fusiform dila tation of the infrarenal portion up to 2.2 cm. No significant ectasia or aneurysm. No dilated small bowel or free air. No mesenteric or retroperitoneal lymphadenopathy. Generalized colonic diverticulosis, greatest along the proximal sigmoid colon where there is outer wa ll thickening and surrounding inflammatory fat stranding and edema tracking into the pelvis with mild pelvic ascites. At the junction of the mid to distal sigmoid colon, there is a staple line from prior resection and r e-anastomosis. Bladder urine distended. Uterus surgically absent. Both ovaries are visualized. No pelvic lymphadenop athy seen. Bones: Hypertrophic facet arthropathy mid to lower lumbar spine with grade 1 retrolisthesis at L2-L3 and L3-L4. Moderate to advanced degenerative disc disease L3-L4. IMPRESSION: 1. Generalized colonic diverticulosis, greatest along the proximal sigmoid colon where there is evid ence of acute diverticulitis with moderate surrounding examination and wall thickening. Reactive mild pelvic ascites. No abscess or free air. 2. Prior distal sigmoid resection and reanastomosis just beyond the site of acute inflammation.
--- NOTE | 2020-06-09 12:40 | ED ---
Abdominal Pain HPI - General Chief Complaint: Abdominal Pain Stated Complaint: Abd Pain, no bowel movement, sent by PCP Time Seen by Provider: 06/09/20 10:20 Source: patient Mode of arrival: ambulatory Limitations: no limitations - History of Present Illness Initial Comments: Patient is a 79-year-old female who presents to the emergency department under the direction of Dr. Kunz. She has a history of ICM with ICD, diverticulitis who has had abdominal pain for the past day and constipation for the past 4 days. States the pain is located in the left lower quadrant. Patient of the pain. Admits to poor appetite. No nausea or vomiting. Denies black or melenic stools. No changes in her urination. Denies back or flank pain. He normally reports that she does not have a history of constipation. Denies anything at home to take to help her have a bowel movement. She called and spoke with Dr. Kunz. He evaluated her over Zoom. Stated she looked extremely uncomfortable and therefore was recommended she come into the emergency room for evaluation. She denies any fevers or chills. No other alleviating, precipitating or modifying factors - Related Data Home Medications Medication Instructions Recorded Confirmed Digoxin [Lanoxin] 125 mcg PO DAILY 11/30/13 06/09/20 Furosemide [Lasix] 40 mg PO DAILY 11/30/13 06/09/20 Rivaroxaban [Xarelto] 20 mg PO HS 11/30/13 06/09/20 Spironolactone [Aldactone] 25 mg PO DAILY 11/30/13 06/09/20 Ubidecarenone [Coq-10] 100 mg PO HS 01/20/14 06/09/20 Levothyroxine Sodium [Synthroid] 75 mcg PO DAILY 10/20/17 06/09/20 Potassium Gluconate 99 mg PO HS 01/19/18 06/09/20 Sacubitril/Valsartan [Entresto 24 1 tab PO BID 01/19/18 06/09/20 mg-26 mg Tablet] Allopurinol [Zyloprim] 100 mg PO HS 01/27/20 06/09/20 Fenofibrate 54 mg PO DAILY 03/28/20 06/09/20 Atorvastatin [Lipitor] 20 mg PO DAILY 06/09/20 06/09/20 Exemestane [Aromasin] 25 mg PO DAILY 06/09/20 06/09/20 Magnesium Oxide [Peña] 500 mg PO HS 06/09/20 06/09/20 Metoprolol Succinate [Toprol XL] 200 mg PO DAILY 06/09/20 06/09/20 Allergies Allergy/AdvReac Type Severity Reaction Status Date / Time adhesive tape Allergy blisters Verified 06/09/20 11:18 ibuprofen [From Motrin] Allergy Swelling Verified 06/09/20 11:18 levofloxacin [From Levaquin] Allergy Rash/Hives Verified 06/09/20 11:18 Review of Systems ROS Statement: Those systems with pertinent positive or pertinent negative responses have been documented in the HPI. ROS Other: All systems not noted in ROS Statement are negative. Past Medical History Past Medical History: Memory Impairment, Thyroid Disorder Additional Past Medical History / Comment(s): hiatal hernia, hx basal skin cancer, hx diverticulitis Last Myocardial Infarction Date:: 04/2012 History of Any Multi-Drug Resistant Organisms: None Reported Past Surgical History: AICD, Bowel Resection, Breast Surgery, Cardiac Ablation, Cholecystectomy, Heart Catheterization, Hysterectomy, Orthopedic Surgery, Tonsillectomy Additional Past Surgical History / Comment(s): bilateral breast reduction 1995, arthroscopic rt knee, partial hysterectomy (bilateral ovaries retained), pacemaker battery replaced October 2018 Past Anesthesia/Blood Transfusion Reactions: No Reported Reaction Additional Past Anesthesia/Blood Transfusion Reaction / Comment(s): No blood transfusions to date (pt had an autolygous transfusion when undergoing bilateral breast reduction). Type of Cardiac Device: Permanent Pacemaker, AICD Device Placement Date:: 2006 (info from pt's med [employer]-[id number],model#[id number]) Past Psychological History: No Psychological Hx Reported Smoking Status: Former smoker Past Alcohol Use History: Occasional Past Drug Use History: None Reported - Past Family History Mother Family Medical History: Cancer Additional Family Medical History / Comment(s): Colon cancer dx at age 74, at age 84. Sister(s) Family Medical History: Cancer, CVA/TIA, Deep Vein Thrombosis (DVT) Additional Family Medical History / Comment(s): pt has 2 sisters: sister #1: at age 79 from stroke complications (also had a hx of blood clots). sister #2: had a cancerous tumor on aortic valve. Son(s) Family Medical History: Deep Vein Thrombosis (DVT) Brother(s) Family Medical History: CVA/TIA, Deep Vein Thrombosis (DVT) Additional Family Medical History / Comment(s): She has 1 brother with a history of stroke and blood clot. Father Family Medical History: Congestive Heart Failure (CHF) General Exam Limitations: no limitations General appearance: alert, in no apparent distress Head exam: Present: atraumatic, normocephalic, normal inspection Eye exam: Present: normal appearance, PERRL, EOMI. Absent: scleral icterus, conjunctival injection, periorbital swelling ENT exam: Present: normal exam, mucous membranes moist Neck exam: Present: normal inspection. Absent: tenderness, meningismus, lymphadenopathy Respiratory exam: Present: normal lung sounds bilaterally. Absent: respiratory distress, wheezes, rales, rhonchi, stridor Cardiovascular Exam: Present: regular rate, normal rhythm, normal heart sounds. Absent: systolic murmur, diastolic murmur, rubs, gallop, clicks GI/Abdominal exam: Present: soft, distended, tenderness (left lower quadrant), normal bowel sounds. Absent: guarding, rebound, rigid Extremities exam: Present: normal inspection, full ROM, normal capillary refill. Absent: tenderness, pedal edema, joint swelling, calf tenderness Back exam: Present: normal inspection Neurological exam: Present: alert, oriented X3, CN II-XII intact Psychiatric exam: Present: normal affect, normal mood Skin exam: Present: warm, dry, intact, normal color. Absent: rash Course Vital Signs 06/09/20 06/09/20 10:18 11:46 Temperature 98.9 F Pulse Rate 77 67 Respiratory 18 18 Rate Blood Pressure 96/53 113/60 O2 Sat by Pulse 97 98 Oximetry Medical Decision Making - Medical Decision Making Upon arrival patient is placed into room 17. Thorough history and physical exam was performed. Provide is established. Patient was given 4 g of morphine for pain control. Laboratory studies were conducted. White blood cell count is 19.2. Creatinine 1.3. Troponin 0.045. CT of the patient's abdomen and pelvis was performed without contrast due to the patient's elevated kidney function which demonstrates diverticulosis with diverticulitis in the sigmoid colon. The results are discussed with the patient. She is covered with dose of Rocephin and Flagyl. Did recommend hospitalization for GI, surgery and cardiac consultation. Patient agreed to this. Spoke with Dr. Plaza is covering for Dr. Kunz. Patient agreed to this and is awaiting a bed on the floor - Lab Data Result diagrams: 06/11/20 05:33 06/11/20 05:33 Lab Results 06/09/20 06/09/20 06/09/20 Range/Units 10:43 10:43 10:43 WBC 19.2 H (3.8-10.6) k/uL RBC 4.42 (3.80-5.40) m/uL Hgb 13.7 (11.4-16.0) gm/dL Hct 40.7 (34.0-46.0) % MCV 92.0 D (80.0-100.0) fL MCH 31.0 (25.0-35.0) pg MCHC 33.7 (31.0-37.0) g/dL RDW 12.7 (11.5-15.5) % Plt Count 238 (150-450) k/uL MPV 8.0 Neutrophils % 83 % Lymphocytes % 9 % Monocytes % 7 % Eosinophils % 1 % Basophils % 0 % Neutrophils # 15.8 H (1.3-7.7) k/uL Lymphocytes # 1.8 (1.0-4.8) k/uL Monocytes # 1.3 H (0-1.0) k/uL Eosinophils # 0.1 (0-0.7) k/uL Basophils # 0.0 (0-0.2) k/uL PT 12.3 H (9.0-12.0) sec INR 1.2 H (<1.2) APTT 29.7 (22.0-30.0) sec Sodium (137-145) mmol/L Potassium (3.5-5.1) mmol/L Chloride (98-107) mmol/L Carbon Dioxide (22-30) mmol/L Anion Gap mmol/L BUN (7-17) mg/dL Creatinine (0.52-1.04) mg/dL Est GFR (CKD-EPI)AfAm (>60 ml/min/1.73 sqM) Est GFR (CKD-EPI)NonAf (>60 ml/min/1.73 sqM) Glucose (74-99) mg/dL Plasma Lactic Acid Chris (0.7-2.0) mmol/L Calcium (8.4-10.2) mg/dL Total Bilirubin (0.2-1.3) mg/dL AST (14-36) U/L ALT (4-34) U/L Alkaline Phosphatase (38-126) U/L Troponin I (0.000-0.034) ng/mL Total Protein (6.3-8.2) g/dL Albumin (3.5-5.0) g/dL Lipase (23-300) U/L Urine Color Light Yellow Urine Appearance Clear (Clear) Urine pH 7.0 (5.0-8.0) Ur Specific [place] 1.006 (1.001-1.035) Urine Protein Negative (Negative) Urine Glucose (UA) Negative (Negative) Urine Ketones Negative (Negative) Urine Blood Negative (Negative) Urine Nitrite Negative (Negative) Urine Bilirubin Negative (Negative) Urine Urobilinogen <2.0 (<2.0) mg/dL Ur Leukocyte Esterase Large H (Negative) Urine RBC 1 (0-5) /hpf Urine WBC 6 H (0-5) /hpf Ur Squamous Epith Cells 1 (0-4) /hpf Urine Mucus Rare H (None) /hpf 06/09/20 06/09/20 06/09/20 Range/Units 10:43 10:43 10:43 WBC (3.8-10.6) k/uL RBC (3.80-5.40) m/uL Hgb (11.4-16.0) gm/dL Hct (34.0-46.0) % MCV (80.0-100.0) fL MCH (25.0-35.0) pg MCHC (31.0-37.0) g/dL RDW (11.5-15.5) % Plt Count (150-450) k/uL MPV Neutrophils % % Lymphocytes % % Monocytes % % Eosinophils % % Basophils % % Neutrophils # (1.3-7.7) k/uL Lymphocytes # (1.0-4.8) k/uL Monocytes # (0-1.0) k/uL Eosinophils # (0-0.7) k/uL Basophils # (0-0.2) k/uL PT (9.0-12.0) sec INR (<1.2) APTT (22.0-30.0) sec Sodium 138 (137-145) mmol/L Potassium 4.2 (3.5-5.1) mmol/L Chloride 100 (98-107) mmol/L Carbon Dioxide 31 H (22-30) mmol/L Anion Gap 7 mmol/L BUN 28 H (7-17) mg/dL Creatinine 1.39 H (0.52-1.04) mg/dL Est GFR (CKD-EPI)AfAm 42 (>60 ml/min/1.73 sqM) Est GFR (CKD-EPI)NonAf 37 (>60 ml/min/1.73 sqM) Glucose 112 H (74-99) mg/dL Plasma Lactic Acid Chris 0.9 (0.7-2.0) mmol/L Calcium 9.9 (8.4-10.2) mg/dL Total Bilirubin 1.5 H (0.2-1.3) mg/dL AST 26 (14-36) U/L ALT 23 (4-34) U/L Alkaline Phosphatase 42 (38-126) U/L Troponin I 0.045 H* (0.000-0.034) ng/mL Total Protein 7.9 (6.3-8.2) g/dL Albumin 4.5 (3.5-5.0) g/dL Lipase 211 (23-300) U/L Urine Color Urine Appearance (Clear) Urine pH (5.0-8.0) Ur Specific [place] (1.001-1.035) Urine Protein (Negative) Urine Glucose (UA) (Negative) Urine Ketones (Negative) Urine Blood (Negative) Urine Nitrite (Negative) Urine Bilirubin (Negative) Urine Urobilinogen (<2.0) mg/dL Ur Leukocyte Esterase (Negative) Urine RBC (0-5) /hpf Urine WBC (0-5) /hpf Ur Squamous Epith Cells (0-4) /hpf Urine Mucus (None) /hpf - EKG Data EKG Comments: EKG demonstrates a ventricularly paced rhythm of a rate 61. QRS 152. 2 mL of 465. Pacemaker captures appropriately. No acute ST segment elevations Disposition Clinical Impression: Troponin level elevated, Abdominal pain, Diverticulitis, Leukocytosis Disposition: ADMITTED IP TO THIS HOSP Condition: Stable Is patient prescribed a controlled substance at d/c from ED?: No Decision to Admit Reason: Admit from EC Decision Date: 06/09/20 Decision Time: 12:52
[2020-06-09] MEDS ORDERED: NALOXONE 0.4 MG/ML 1 ML VIAL IV PRN (12:52)
[2020-06-09] MEDS: SODIUM CHLORIDE 0.9% 1,000 ML IV SCH (13:32)
[2020-06-09] MEDS: MORPHINE SULFATE 4 MG/ML SYRINGE IV PRN ×2 (15:42→20:45)
[2020-06-09] MEDS: metroNIDAZOLE-NS PMX 500 MG in SALINE 1 100ML.BAG IVPB SCH (20:44)
[2020-06-09] MEDS: allopurinoL 100 MG TAB PO SCH (22:48)
[2020-06-09] MEDS: RIVAROXABAN 20 MG TAB PO SCH (22:48)
[2020-06-09] MEDS: SACUBITRIL/VALSARTAN 24 MG-26 MG TABLET PO SCH (22:48)
--- NOTE | 2020-06-10 00:12 | P.HPIM ---
History of Present Illness this is a pleasant 79 years old female with past medical history of memory impairment, hypothyroidism, hiatal hernia, history of diverticulitis, atrial fibrillation on Xarelto and coronary artery disease status post cardiac ablation and AICD and pacemaker. Patient presents because of generalized abdominal pain with left lower quadrant tenderness for about one week associated with constipation for the last 4 days and nausea but no vomiting. Patient denies chest pain no dyspnea. On admission labs showed leukocytosis of 19.2 K. INR is 1.2. Creatinine is slightly elevated at 1.3 which is close to baseline. Elevated troponin 0.04 and 0.04, however her troponin is chronically elevated 0.032 0.04. Urinalysis showed large leukocyte esterase. EKG showing ventricular pacemaker at 61. CT of the abdomen and pelvis showing generalized colonic diverticulosis with evidence of acute diverticulitis with moderate surrounding wall thickening. Reactive mild pelvic ascites. his or free air Review of Systems CONSTITUTIONAL: No fever, no malaise, no fatigue. HEENT: No recent visual problems or hearing problems. Denied any sore throat. CARDIOVASCULAR: No orthopnea, PND, no palpitations, no syncope. PULMONARY: No shortness of breath, no cough, no hemoptysis. GASTROINTESTINAL: No diarrhea, no vomiting, . Normoactive bowel sounds. NEUROLOGICAL: No headaches, no weakness, no numbness. HEMATOLOGICAL: Denies any bleeding or petechiae. GENITOURINARY: Denies any burning micturition, frequency, or urgency. MUSCULOSKELETAL/RHEUMATOLOGICAL: Denies any joint pain, swelling, or any muscle pain. ENDOCRINE: Denies any polyuria or polydipsia. Past Medical History Past Medical History: Memory Impairment, Thyroid Disorder Additional Past Medical History / Comment(s): hiatal hernia, hx basal skin cancer, hx diverticulitis Last Myocardial Infarction Date:: 04/2012 History of Any Multi-Drug Resistant Organisms: None Reported Past Surgical History: AICD, Bowel Resection, Breast Surgery, Cardiac Ablation, Cholecystectomy, Heart Catheterization, Hysterectomy, Orthopedic Surgery, Tonsillectomy Additional Past Surgical History / Comment(s): bilateral breast reduction 1995, arthroscopic rt knee, partial hysterectomy (bilateral ovaries retained), pacemaker battery replaced October 2018 Past Anesthesia/Blood Transfusion Reactions: No Reported Reaction Additional Past Anesthesia/Blood Transfusion Reaction / Comment(s): No blood transfusions to date (pt had an autolygous transfusion when undergoing bilateral breast reduction). Type of Cardiac Device: Permanent Pacemaker, AICD Device Placement Date:: 2006 (info from pt's med [employer]- [id number],model#[id number]) Past Psychological History: No Psychological Hx Reported Smoking Status: Former smoker Past Alcohol Use History: Occasional Past Drug Use History: None Reported - Past Family History Mother Family Medical History: Cancer Additional Family Medical History / Comment(s): Colon cancer dx at age 74, at age 84. Sister(s) Family Medical History: Cancer, CVA/TIA, Deep Vein Thrombosis (DVT) Additional Family Medical History / Comment(s): pt has 2 sisters: sister #1: at age 79 from stroke complications (also had a hx of blood clots). sister #2: had a cancerous tumor on aortic valve. Son(s) Family Medical History: Deep Vein Thrombosis (DVT) Brother(s) Family Medical History: CVA/TIA, Deep Vein Thrombosis (DVT) Additional Family Medical History / Comment(s): She has 1 brother with a history of stroke and blood clot. Father Family Medical History: Congestive Heart Failure (CHF) Medications and Allergies Home Medications Medication Instructions Recorded Confirmed Type Digoxin [Lanoxin] 125 mcg PO DAILY 11/30/13 06/09/20 History Furosemide [Lasix] 40 mg PO DAILY 11/30/13 06/09/20 History Rivaroxaban [Xarelto] 20 mg PO HS 11/30/13 06/09/20 History Spironolactone [Aldactone] 25 mg PO DAILY 11/30/13 06/09/20 History Ubidecarenone [Coq-10] 100 mg PO HS 01/20/14 06/09/20 History Levothyroxine Sodium [Synthroid] 75 mcg PO DAILY 10/20/17 06/09/20 History Potassium Gluconate 99 mg PO HS 01/19/18 06/09/20 History Sacubitril/Valsartan [Entresto 24 1 tab PO BID 01/19/18 06/09/20 History mg-26 mg Tablet] Allopurinol [Zyloprim] 100 mg PO HS 01/27/20 06/09/20 History Fenofibrate 54 mg PO DAILY 03/28/20 06/09/20 History Atorvastatin [Lipitor] 20 mg PO DAILY 06/09/20 06/09/20 History Exemestane [Aromasin] 25 mg PO DAILY 06/09/20 06/09/20 History Magnesium Oxide [Peña] 500 mg PO HS 06/09/20 06/09/20 History Metoprolol Succinate [Toprol XL] 200 mg PO DAILY 06/09/20 06/09/20 History Allergies Allergy/AdvReac Type Severity Reaction Status Date / Time adhesive tape Allergy blisters Verified 06/09/20 11:18 ibuprofen [From Motrin] Allergy Swelling Verified 06/09/20 11:18 levofloxacin [From Levaquin] Allergy Rash/Hives Verified 06/09/20 11:18 Physical Exam Vitals: Vital Signs Temp Pulse Resp BP Pulse Ox 06/09/20 11:46 67 18 113/60 98 06/09/20 10:18 98.9 F 77 18 96/53 97 Intake and Output 06/09/20 06/09/20 06/09/20 06:59 14:59 22:59 Other: Weight 78.471 kg GENERAL: The patient is alert and oriented x3, not in any acute distress. Well developed, well nourished. HEENT: Pupils are round and equally reacting to light. EOMI. No scleral icterus. No conjunctival pallor. Normocephalic, atraumatic. No pharyngeal erythema. No thyromegaly. CARDIOVASCULAR: S1 and S2 present. No murmurs, rubs, or gallops. PULMONARY: Chest is clear to auscultation, no wheezing or crackles. -ABDOMEN: Soft, generalized lower abdominal tenderness mainly left lower quadrant, nondistended, normoactive bowel sounds. No palpable organomegaly. MUSCULOSKELETAL: No joint swelling or deformity. EXTREMITIES: No cyanosis, clubbing, or pedal edema. NEUROLOGICAL: Gross neurological examination did not reveal any focal deficits. SKIN: No rashes. No petechiae Results CBC & Chem 7: 06/09/20 10:43 06/09/20 10:43 Labs: Abnormal Lab Results - Last 24 Hours (Table) 06/09/20 06/09/20 06/09/20 Range/Units 10:43 10:43 10:43 WBC 19.2 H (3.8-10.6) k/uL Neutrophils # 15.8 H (1.3-7.7) k/uL Monocytes # 1.3 H (0-1.0) k/uL PT 12.3 H (9.0-12.0) sec INR 1.2 H (<1.2) Carbon Dioxide (22-30) mmol/L BUN (7-17) mg/dL Creatinine (0.52-1.04) mg/dL Glucose (74-99) mg/dL Total Bilirubin (0.2-1.3) mg/dL Troponin I (0.000-0.034) ng/mL Ur Leukocyte Esterase Large H (Negative) Urine WBC 6 H (0-5) /hpf Urine Mucus Rare H (None) /hpf 06/09/20 06/09/20 06/09/20 Range/Units 10:43 10:43 17:24 WBC (3.8-10.6) k/uL Neutrophils # (1.3-7.7) k/uL Monocytes # (0-1.0) k/uL PT (9.0-12.0) sec INR (<1.2) Carbon Dioxide 31 H (22-30) mmol/L BUN 28 H (7-17) mg/dL Creatinine 1.39 H (0.52-1.04) mg/dL Glucose 112 H (74-99) mg/dL Total Bilirubin 1.5 H (0.2-1.3) mg/dL Troponin I 0.045 H* 0.043 H* (0.000-0.034) ng/mL Ur Leukocyte Esterase (Negative) Urine WBC (0-5) /hpf Urine Mucus (None) /hpf Assessment and Plan Assessment: Acute diverticulitis Chronic kidney disease, stage III Elevated troponin, chronic Atrial fibrillation on Xarelto Hiatal hernia Status post pacemaker and AICD Plan: This is a pleasant 79 years old female who presents with acute diverticulitis and generalized abdominal pain with left lower quadrant tenderness. Continue with ceftriaxone and Flagyl. Follow-up culture results. Bowel rest and IV fluids. GI and surgery consult. Cardiology already consulted for elevated troponin but this is chronic Labs and medication were reviewed.. Continue same treatment. Continue with symptomatic treatment. Resume home medication. Monitor lytes and vitals. DVT and GI prophylaxis. Further recommendations depends on the clinical course of the patient DVT prophylaxis: On Xarelto GI Prophylaxis: Ppi Prognosis is guarded
[2020-06-10] MEDS: MORPHINE SULFATE 4 MG/ML SYRINGE IV PRN ×3 (02:16→18:16)
[2020-06-10] MEDS: metroNIDAZOLE-NS PMX 500 MG in SALINE 1 100ML.BAG IVPB SCH ×3 (04:57→20:41)
[2020-06-10] MEDS: SACUBITRIL/VALSARTAN 24 MG-26 MG TABLET PO SCH ×2 (09:48→20:41)
[2020-06-10] MEDS: SODIUM CHLORIDE 0.9% 1,000 ML IV SCH (09:49)
[2020-06-10 09:55] LABS: Basophils # (A) 0.1 k/uL (0-0.2); Basophils % (A) 0 %; Eosinophils # (A) 0.1 k/uL (0-0.7); Eosinophils % (A) 1 %; HCT 37.2 % (34.0-46.0); HGB 12.4 gm/dL (11.4-16.0); Lymphocytes # (A) 1.2 k/uL (1.0-4.8); Lymphocytes % (A) 8 %; MCH 31.3 pg (25.0-35.0); MCHC 33.2 g/dL (31.0-37.0); MCV 94.2 fL (80.0-100.0); Mean Platelet Volume 8.3; Monocytes % (A) 7 %; Neutrophils # (A) 12.1 k/uL (1.3-7.7); Neutrophils % (A) 83 %; Platelet Count 192 k/uL (150-450); RBC 3.95 m/uL (3.80-5.40); RDW 12.7 % (11.5-15.5); WBC 14.7 k/uL (3.8-10.6)
[2020-06-10 10:15] LABS: Calcium 9.3 mg/dL (8.4-10.2); Magnesium 2.2 mg/dL (1.6-2.3); Potassium 4.4 mmol/L (3.5-5.1)
--- NOTE | 2020-06-10 12:30 | P.GSCN ---
History of Present Illness Consult date: 06/10/20 Reason for Consult: Diverticulitis History of present illness: Is a 79-year-old female who was admitted to the hospital with abdominal pain. P rafael's workup found have evidence of diverticulitis. Patient's she has pain in the left lower quadrant. Past Medical History Past Medical History: Memory Impairment, Thyroid Disorder Additional Past Medical History / Comment(s): hiatal hernia, hx basal skin cancer, hx diverticulitis Last Myocardial Infarction Date:: 04/2012 History of Any Multi-Drug Resistant Organisms: None Reported Past Surgical History: AICD, Bowel Resection, Breast Surgery, Cardiac Ablation, Cholecystectomy, Heart Catheterization, Hysterectomy, Orthopedic Surgery, Tonsillectomy Additional Past Surgical History / Comment(s): bilateral breast reduction 1995, arthroscopic rt knee, partial hysterectomy (bilateral ovaries retained), pacemaker battery replaced October 2018 Past Anesthesia/Blood Transfusion Reactions: No Reported Reaction Additional Past Anesthesia/Blood Transfusion Reaction / Comm: No blood t ransfusions to date (pt had an autolygous transfusion when undergoing bilateral breast reduction). Type of Cardiac Device: Permanent Pacemaker, AICD Device Placement Date:: 2006 (info from pt's med card [employer]- [id number],model#[id number]) Past Psychological History: No Psychological Hx Reported Smoking Status: Former smoker Past Alcohol Use History: Occasional Past Drug Use History: None Reported - Past Family History Mother Family Medical History: Cancer Additional Family Medical History / Comment(s): Colon cancer dx at age 74, at age 84. Sister(s) Family Medical History: Cancer, CVA/TIA, Deep Vein Thrombosis (DVT) Additional Family Medical History / Comment(s): pt has 2 sisters: sister #1: de ceased at age 79 from stroke complications (also had a hx of blood clots). sister #2: had a cancerous tumor on aortic valve. Son(s) Family Medical History: Deep Vein Thrombosis (DVT) Brother(s) Family Medical History: CVA/TIA, Deep Vein Thrombosis (DVT) Additional Family Medical History / Comment(s): She has 1 brother with a history of stroke and blood clot. Father Family Medical History: Congestive Heart Failure (CHF) Medications and Allergies Home Medications Medication Instructions Recorded Confirmed Type Digoxin [Lanoxin] 125 mcg PO DAILY 11/30/13 06/09/20 History Furosemide [Lasix] 40 mg PO DAILY 11/30/13 06/09/20 History Rivaroxaban [Xarelto] 20 mg PO HS 11/30/13 06/09/20 History Spironolactone [Aldactone] 25 mg PO DAILY 11/30/13 06/09/20 History Ubidecarenone [Coq-10] 100 mg PO HS 01/20/14 06/09/20 History Levothyroxine Sodium [Synthroid] 75 mcg PO DAILY 10/20/17 06/09/20 History Potassium Gluconate 99 mg PO HS 01/19/18 06/09/20 History Sacubitril/Valsartan [Entresto 24 1 tab PO BID 01/19/18 06/09/20 History mg-26 mg Tablet] Allopurinol [Zyloprim] 100 mg PO HS 01/27/20 06/09/20 History Fenofibrate 54 mg PO DAILY 03/28/20 06/09/20 History Atorvastatin [Lipitor] 20 mg PO DAILY 06/09/20 06/09/20 History Exemestane [Aromasin] 25 mg PO DAILY 06/09/20 06/09/20 History Magnesium Oxide [Peña] 500 mg PO HS 06/09/20 06/09/20 History Metoprolol Succinate [Toprol XL] 200 mg PO DAILY 06/09/20 06/09/20 History Allergies Allergy/AdvReac Type Severity Reaction Status Date / Time adhesive tape Allergy blisters Verified 06/09/20 11:18 ibuprofen [From Motrin] Allergy Swelling Verified 06/09/20 11:18 levofloxacin [From Levaquin] Allergy Rash/Hives Verified 06/09/20 11:18 Surgical - Exam Vital Signs Temp Pulse Resp BP Pulse Ox 98.9 F 77 18 96/53 97 06/09/20 10:18 06/09/20 10:18 06/09/20 10:18 06/09/20 10:18 06/09/20 10:18 - General well developed, well nourished, no distress - Eyes PERRL - ENT normal pinna - Neck no masses - Respiratory normal expansion - Cardiovascular Rhythm: regular - Abdomen Abdomen: soft, non tender Results - Labs 06/10/20 09:17 06/10/20 09:17 Abnormal Lab Results - Last 24 Hours (Table) 12/11/20 12/12/20 12/12/20 Range/Units 17:24 09:17 09:17 WBC 14.7 H (3.8-10.6) k/uL Neutrophils # 12.1 H (1.3-7.7) k/uL BUN 30 H (7-17) mg/dL Creatinine 1.41 H (0.52-1.04) mg/dL Troponin I 0.043 H* (0.000-0.034) ng/mL Diabetes panel 06/10/20 Range/Units 09:17 Sodium 138 (137-145) mmol/L Potassium 4.4 (3.5-5.1) mmol/L Chloride 103 (98-107) mmol/L Carbon Dioxide 27 (22-30) mmol/L BUN 30 H (7-17) mg/dL Creatinine 1.41 H (0.52-1.04) mg/dL Glucose 94 (74-99) mg/dL Calcium 9.3 (8.4-10.2) mg/dL Calcium panel 06/10/20 Range/Units 09:17 Calcium 9.3 (8.4-10.2) mg/dL Pituitary panel 06/10/20 Range/Units 09:17 Sodium 138 (137-145) mmol/L Potassium 4.4 (3.5-5.1) mmol/L Chloride 103 (98-107) mmol/L Carbon Dioxide 27 (22-30) mmol/L BUN 30 H (7-17) mg/dL Creatinine 1.41 H (0.52-1.04) mg/dL Glucose 94 (74-99) mg/dL Calcium 9.3 (8.4-10.2) mg/dL Adrenal panel 06/10/20 Range/Units 09:17 Sodium 138 (137-145) mmol/L Potassium 4.4 (3.5-5.1) mmol/L Chloride 103 (98-107) mmol/L Carbon Dioxide 27 (22-30) mmol/L BUN 30 H (7-17) mg/dL Creatinine 1.41 H (0.52-1.04) mg/dL Glucose 94 (74-99) mg/dL Calcium 9.3 (8.4-10.2) mg/dL Assessment and Plan Assessment: Diverticulitis. Patient can receive IV antibiotics.
--- NOTE | 2020-06-10 13:31 | P.CRDCN ---
History of Present Illness History of present illness: HISTORY OF PRESENTING ILLNESS This is a pleasant 79-year-old female past medical history significant for nonischemic cardiomyopathy status post AICD, chronic persistent atrial fibr illation status post AV node ablation, chronic systolic heart failure, hypertension and dyslipidemia. She follows in the office with Dr. Mireles. We have been asked to see in consultation for elevated troponin. She presented to the hospital with symptoms of lower abdominal discomfort and constipation. CT of the abdomen and pelvis revealed generalize colonic diverticulosis, evidence of acute diverticulitis with moderate surrounding wall thickening, reactive mild pelvic ascites noted with no free air. There is also distal sigmoid resection in the past with reanastomosis just beyond the site of acute inflammation. She denies symptoms of chest pain, shortness of breath, dizziness or palpitations. EKG reveals ventricular paced with underlying atrial fibrillation. Heart rate is 60. Laboratory data reviewed, WBC on admission 19.2 repeat today 14.7, hemoglobin 12.4, platelets 192, sodium 138, potassium 4.4, creatinine 1.41, magnesium 2.2, troponin 0.045 and 0.043, NT proBNP 2270. Current daily cardiac medications include atorvastatin 20 mg daily, digoxin 125 g daily, entresto 24/26 milligrams twice a day, Toprol 200 mg daily, Xarelto 20 mg at bedtime and Aldactone 25 mg daily. Most recent echocardiogram obtained in 2019 revealed impaired LV systolic function with ejection fraction 25-30%, mild MR and mild TR noted. There is mild pulmonary hypertension with RVSP of 40 mmHg. REVIEW OF SYSTEMS At the time of my exam: CONSTITUTIONAL: Denies fever or chills. CARDIOVASCULAR: Denies chest pain, shortness of breath, orthopnea, PND or palpitations. RESPIRATORY: Denies cough. GASTROINTESTINAL: Complains of lower abdominal pain and constipation. Denies diarrhea, nausea or vomiting. MUSCULOSKELETAL: Denies myalgias. NEUROLOGIC: Denies numbness, tingling or weakness. ENDOCRINE: Denies fatigue, weight change, polydipsia or polyurina. GENITOURINARY: Denies burning, hematuria or urgency with micturation. HEMATOLOGIC: Denies history of anemia or bleeding. PHYSICAL EXAMINATION Blood pressure 101/54 heart rate 60 afebrile and maintaining oxygen saturation on room air. CONSTITUTIONAL: No apparent distress. HEENT: Head is normocephalic. Pupils are equal, round. Sclerae anicteric. Mucous membranes of the mouth are moist. No JVD. No carotid bruit. CHEST EXAMINATION: Lungs are clear to auscultation. No chest wall tenderness is noted on palpation or with deep breathing. HEART EXAMINATION: Regular rate and rhythm. S1, S2 heard. No murmurs, gallops or rub. ABDOMEN: Soft, nontender. Positive bowel sounds. EXTREMITIES: 2+ peripheral pulses, no lower extremity edema and no calf tenderness. NEUROLOGIC EXAMINATION: Patient is awake, alert and oriented x3. ASSESSMENT Acute diverticulitis Leukocytosis Mild troponin leak related to primary myocardial injury. Appears chronic. Nonischemic cardiomyopathy status post AICD Acute kidney injury Chronic systolic heart failure, clinically euvolemic Chronic persistent atrial fibrillation on long-term anticoagulation Hypertension Dyslipidemia PLAN Troponin elevation not secondary to primary myocardial injury, chronic in na ture. No further cardiac intervention at this time. Ongoing medical management and evaluation of diverticulitis. Thank you kindly for this consultation. Nurse Practitioner note has been reviewed, I agree with a documented findings and plan of care. Patient was seen and examined. Past Medical History Past Medical History: Memory Impairment, Thyroid Disorder Additional Past Medical History / Comment(s): hiatal hernia, hx basal skin cancer, hx diverticulitis Last Myocardial Infarction Date:: 04/2012 History of Any Multi-Drug Resistant Organisms: None Reported Past Surgical History: AICD, Bowel Resection, Breast Surgery, Cardiac Ablation, Cholecystectomy, Heart Catheterization, Hysterectomy, Orthopedic Surgery, Tonsillectomy Additional Past Surgical History / Comment(s): bilateral breast reduction 1995, arthroscopic rt knee, partial hysterectomy (bilateral ovaries retained), pacemaker battery replaced October 2018 Past Anesthesia/Blood Transfusion Reactions: No Reported Reaction Additional Past Anesthesia/Blood Transfusion Reaction / Comment(s): No blood transfusions to date (pt had an autolygous transfusion when undergoing bilateral breast reduction). Type of Cardiac Device: Permanent Pacemaker, AICD Device Placement Date:: 2006 (info from pt's [employer]- [id number],model#[id number]) Past Psychological History: No Psychological Hx Reported Smoking Status: Former smoker Past Alcohol Use History: Occasional Past Drug Use History: None Reported - Past Family History Mother Family Medical History: Cancer Additional Family Medical History / Comment(s): Colon cancer dx at age 74, at age 84. Sister(s) Family Medical History: Cancer, CVA/TIA, Deep Vein Thrombosis (DVT) Additional Family Medical History / Comment(s): pt has 2 sisters: sister #1: at age 79 from stroke complications (also had a hx of blood clots). sister #2: had a cancerous tumor on aortic valve. Son(s) Family Medical History: Deep Vein Thrombosis (DVT) Brother(s) Family Medical History: CVA/TIA, Deep Vein Thrombosis (DVT) Additional Family Medical History / Comment(s): She has 1 brother with a history of stroke and blood clot. Father Family Medical History: Congestive Heart Failure (CHF) Medications and Allergies Home Medications Medication Instructions Recorded Confirmed Type Digoxin [Lanoxin] 125 mcg PO DAILY 11/30/13 06/09/20 History Furosemide [Lasix] 40 mg PO DAILY 11/30/13 06/09/20 History Rivaroxaban [Xarelto] 20 mg PO HS 11/30/13 06/09/20 History Spironolactone [Aldactone] 25 mg PO DAILY 11/30/13 06/09/20 History Ubidecarenone [Coq-10] 100 mg PO HS 01/20/14 06/09/20 History Levothyroxine Sodium [Synthroid] 75 mcg PO DAILY 10/20/17 06/09/20 History Potassium Gluconate 99 mg PO HS 01/19/18 06/09/20 History Sacubitril/Valsartan [Entresto 24 1 tab PO BID 01/19/18 06/09/20 History mg-26 mg Tablet] Allopurinol [Zyloprim] 100 mg PO HS 01/27/20 06/09/20 History Fenofibrate 54 mg PO DAILY 03/28/20 06/09/20 History Atorvastatin [Lipitor] 20 mg PO DAILY 06/09/20 06/09/20 History Exemestane [Aromasin] 25 mg PO DAILY 06/09/20 06/09/20 History Magnesium Oxide [Peña] 500 mg PO HS 06/09/20 06/09/20 History Metoprolol Succinate [Toprol XL] 200 mg PO DAILY 06/09/20 06/09/20 History Allergies Allergy/AdvReac Type Severity Reaction Status Date / Time adhesive tape Allergy blisters Verified 06/09/20 11:18 ibuprofen [From Motrin] Allergy Swelling Verified 06/09/20 11:18 levofloxacin [From Levaquin] Allergy Rash/Hives Verified 06/09/20 11:18 Physical Exam Vitals: Vital Signs Temp Pulse Pulse Resp BP BP Pulse Ox 06/10/20 04:00 60 18 81/43 94 L 06/10/20 01:24 61 18 06/09/20 23:28 61 18 107/55 96 06/09/20 20:20 98.2 F 60 18 107/54 95 06/09/20 11:46 67 18 113/60 98 06/09/20 10:18 98.9 F 77 18 96/53 97 Intake and Output 06/09/20 06/10/20 06/10/20 22:59 06:59 14:59 Output Total 100 Balance -100 Output: Urine 100 Other: Voiding Method Toilet # Voids 1 Weight 78.471 kg 81.4 kg Results 06/10/20 09:17 06/10/20 09:17 Cardiac Enzymes 06/09/20 06/09/20 06/09/20 Range/Units 10:43 10:43 17:24 AST 26 (14-36) U/L Troponin I 0.045 H* 0.043 H* (0.000-0.034) ng/mL Coagulation 06/09/20 Range/Units 10:43 PT 12.3 H (9.0-12.0) sec APTT 29.7 (22.0-30.0) sec CBC 06/09/20 Range/Units 10:43 WBC 19.2 H (3.8-10.6) k/uL RBC 4.42 (3.80-5.40) m/uL Hgb 13.7 (11.4-16.0) gm/dL Hct 40.7 (34.0-46.0) % Plt Count 238 (150-450) k/uL Comprehensive Metabolic Panel 06/09/20 Range/Units 10:43 Sodium 138 (137-145) mmol/L Potassium 4.2 (3.5-5.1) mmol/L Chloride 100 (98-107) mmol/L Carbon Dioxide 31 H (22-30) mmol/L BUN 28 H (7-17) mg/dL Creatinine 1.39 H (0.52-1.04) mg/dL Glucose 112 H (74-99) mg/dL Calcium 9.9 (8.4-10.2) mg/dL AST 26 (14-36) U/L ALT 23 (4-34) U/L Alkaline Phosphatase 42 (38-126) U/L Total Protein 7.9 (6.3-8.2) g/dL Albumin 4.5 (3.5-5.0) g/dL Current Medications Generic Name Dose Route Start Last Admin Trade Name Freq PRN Reason Stop Dose Admin Allopurinol 100 mg 06/09/20 21:15 06/09/20 22:48 Allopurinol 100 Mg Tab PO 100 mg HS REYNA Administration Sodium Chloride 1,000 mls @ 50 mls/hr 06/09/20 13:00 06/09/20 13:32 Saline 0.9% IV 50 mls/hr .Q20H REYNA Administration Metronidazole 500 mg/ IV 100 mls @ 100 mls/hr 06/09/20 20:00 06/10/20 04:57 Solution IVPB 100 mls/hr Q8H REYNA Administration Ceftriaxone Sodium 1 gm/ 50 mls @ 100 mls/hr 06/10/20 09:00 Sodium Chloride IVPB Q24HR REYNA Morphine Sulfate 4 mg 06/09/20 12:52 06/10/20 02:16 Morphine Sulfate 4 Mg/Ml Syringe IV 4 mg Q4HR PRN Administration Severe Pain Naloxone HCl 0.2 mg 06/09/20 12:52 Naloxone 0.4 Mg/Ml 1 Ml Vial IV Q2M PRN Opioid Reversal Rivaroxaban 20 mg 06/09/20 21:15 06/09/20 22:48 Rivaroxaban 20 Mg Tab PO 20 mg W/SUPPER ERYNA Administration Sacubitril/Valsartan 1 each 06/09/20 21:15 06/09/20 22:48 Sacubitril/Valsartan 24 Mg-26 Mg Tablet PO 1 each BID REYNA Administration Intake and Output 06/09/20 06/10/20 06/10/20 22:59 06:59 14:59 Output Total 100 Balance -100 Output: Urine 100 Other: Voiding Method Toilet # Voids 1 Weight 78.471 kg 81.4 kg 06/09/20 10:43 06/09/20 10:43
--- NOTE | 2020-06-10 13:53 | P.CONS ---
History of Present Illness - Reason for Consult Consult date: 06/09/20 Diverticulitis Requesting physician: Graham E Sheet - Chief Complaint Abdominal pain - History of Present Illness 79-year-old female with a medical history significant for memory impairment, hypothyroidism, hiatal hernia, diverticulitis with at least 4 episodes in the past and prior partial colectomy, atrial fibrillation on anticoagulation therapy, coronary artery disease and prior AICD and pacemaker placement who presented to the hospital due to complaints of abdominal pain. Patient reports constant severe abdominal pain in her lower abdomen and particularly left lower quadrant of her abdomen. Pain is present for approximately one day. It is similar to prior episodes of diverticulitis. Patient had laboratory evaluation on presentation significant for WBC 19.2, hemoglobin 13.7, platelet count 38,000 with total bilirubin 1.5, alkaline phosphatase 42, AST 26 and ALTs 23. Computed tomography scan of the abdomen showed generalized colonic diverticulosis with evidence of diverticulitis with inflammatory changes and thickening just proximal to the prior sigmoid resection and anastomosis. Currently she is seen in the emergency department continuing to report pain. No nausea or vomiting reported. Last colonoscopy on 03/31/2020 significant for scattered sigmoid diverticulosis. Review of Systems REVIEW OF SYSTEMS: CONSTITUTIONAL: Denies any fevers, chills, weight change or fatigue. CARDIOVASCULAR: Denies any chest pain, palpitations high or low blood pressures RESPIRATORY: Denies any shortness of breath, hemoptysis or cough. GENITOURINARY: No dysuria or hematuria. MUSCULOSKELETAL: No weakness reported. SKIN: Denies any new rashes or lesions, jaundice or pallor. PSYCHIATRIC: Denies any depression or anxiety. NEUROLOGY: Denies headache, denies any new focal deficits, should've history of memory impairment. EARS/NOSE/THROAT: No recent hearing change, congestion, nasal discharge or sore throat. EYES: No pain in eyes, discharge or change in vision. GASTROINTESTINAL: As per HPI. Past Medical History Past Medical History: Memory Impairment, Thyroid Disorder Additional Past Medical History / Comment(s): hiatal hernia, hx basal skin cancer, hx diverticulitis Last Myocardial Infarction Date:: 04/2012 History of Any Multi-Drug Resistant Organisms: None Reported Past Surgical History: AICD, Bowel Resection, Breast Surgery, Cardiac Ablation, Cholecystectomy, Heart Catheterization, Hysterectomy, Orthopedic Surgery, Tonsillectomy Additional Past Surgical History / Comment(s): bilateral breast reduction 1995, arthroscopic rt knee, partial hysterectomy (bilateral ovaries retained), pacemaker battery replaced October 2018 Past Anesthesia/Blood Transfusion Reactions: No Reported Reaction Additional Past Anesthesia/Blood Transfusion Reaction / Comm: No blood transf usions to date (pt had an autolygous transfusion when undergoing bilateral breast reduction). Type of Cardiac Device: Permanent Pacemaker, AICD Device Placement Date:: 2006 (info from pt's [employer]- [id number],model#[id number]) Past Psychological History: No Psychological Hx Reported Smoking Status: Former smoker Past Alcohol Use History: Occasional Past Drug Use History: None Reported - Past Family History Mother Family Medical History: Cancer Additional Family Medical History / Comment(s): Colon cancer dx at age 74, at age 84. Sister(s) Family Medical History: Cancer, CVA/TIA, Deep Vein Thrombosis (DVT) Additional Family Medical History / Comment(s): pt has 2 sisters: sister #1: at age 79 from stroke complications (also had a hx of blood clots). sister #2: had a cancerous tumor on aortic valve. Son(s) Family Medical History: Deep Vein Thrombosis (DVT) Brother(s) Family Medical History: CVA/TIA, Deep Vein Thrombosis (DVT) Additional Family Medical History / Comment(s): She has 1 brother with a history of stroke and blood clot. Father Family Medical History: Congestive Heart Failure (CHF) Medications and Allergies Home Medications Medication Instructions Recorded Confirmed Type Digoxin [Lanoxin] 125 mcg PO DAILY 11/30/13 06/09/20 History Furosemide [Lasix] 40 mg PO DAILY 11/30/13 06/09/20 History Rivaroxaban [Xarelto] 20 mg PO HS 11/30/13 06/09/20 History Spironolactone [Aldactone] 25 mg PO DAILY 11/30/13 06/09/20 History Ubidecarenone [Coq-10] 100 mg PO HS 01/20/14 06/09/20 History Levothyroxine Sodium [Synthroid] 75 mcg PO DAILY 10/20/17 06/09/20 History Potassium Gluconate 99 mg PO HS 01/19/18 06/09/20 History Sacubitril/Valsartan [Entresto 24 1 tab PO BID 01/19/18 06/09/20 History mg-26 mg Tablet] Allopurinol [Zyloprim] 100 mg PO HS 01/27/20 06/09/20 History Fenofibrate 54 mg PO DAILY 03/28/20 06/09/20 History Atorvastatin [Lipitor] 20 mg PO DAILY 06/09/20 06/09/20 History Exemestane [Aromasin] 25 mg PO DAILY 06/09/20 06/09/20 History Magnesium Oxide [Peña] 500 mg PO HS 06/09/20 06/09/20 History Metoprolol Succinate [Toprol XL] 200 mg PO DAILY 06/09/20 06/09/20 History Allergies Allergy/AdvReac Type Severity Reaction Status Date / Time adhesive tape Allergy blisters Verified 06/09/20 11:18 ibuprofen [From Motrin] Allergy Swelling Verified 06/09/20 11:18 levofloxacin [From Levaquin] Allergy Rash/Hives Verified 06/09/20 11:18 Physical Exam Vitals: Vital Signs Temp Pulse Resp BP Pulse Ox 06/09/20 11:46 67 18 113/60 98 06/09/20 10:18 98.9 F 77 18 96/53 97 Intake and Output 06/09/20 06/09/20 06/09/20 06:59 14:59 22:59 Other: Weight 78.471 kg On physical examination, patient appears comfortable in no apparent distress. HEAD: Normocephalic, atraumatic. EYES: No scleral icterus. No conjunctival injection. MOUTH: No lesions, tongue midline. NECK: Trachea midline, no gross abnormalities. CHEST: Clear to auscultation with no wheezing or rhonchi appreciated. HEART: S1-S2 appreciated. ABDOMEN: Soft, obese, moderately tender to palpation in the left lower abdomen. Bowel sounds are positive. No organomegaly. No guarding or rigidity. EXTREMITIES: No pedal edema. SKIN: No rashes, no jaundice. NEUROLOGIC: Alert and oriented x3. No focal deficits. Results CBC & Chem 7: 06/10/20 09:17 06/10/20 09:17 Labs: Abnormal Lab Results - Last 24 Hours (Table) 06/09/20 06/09/20 06/09/20 Range/Units 10:43 10:43 10:43 WBC 19.2 H (3.8-10.6) k/uL Neutrophils # 15.8 H (1.3-7.7) k/uL Monocytes # 1.3 H (0-1.0) k/uL PT 12.3 H (9.0-12.0) sec INR 1.2 H (<1.2) Carbon Dioxide (22-30) mmol/L BUN (7-17) mg/dL Creatinine (0.52-1.04) mg/dL Glucose (74-99) mg/dL Total Bilirubin (0.2-1.3) mg/dL Troponin I (0.000-0.034) ng/mL Ur Leukocyte Esterase Large H (Negative) Urine WBC 6 H (0-5) /hpf Urine Mucus Rare H (None) /hpf 06/09/20 06/09/20 Range/Units 10:43 10:43 WBC (3.8-10.6) k/uL Neutrophils # (1.3-7.7) k/uL Monocytes # (0-1.0) k/uL PT (9.0-12.0) sec INR (<1.2) Carbon Dioxide 31 H (22-30) mmol/L BUN 28 H (7-17) mg/dL Creatinine 1.39 H (0.52-1.04) mg/dL Glucose 112 H (74-99) mg/dL Total Bilirubin 1.5 H (0.2-1.3) mg/dL Troponin I 0.045 H* (0.000-0.034) ng/mL Ur Leukocyte Esterase (Negative) Urine WBC (0-5) /hpf Urine Mucus (None) /hpf CT scan - abdomen: report reviewed (Computed tomography scan of the abdomen showed generalized colonic diverticulosis with evidence of diverticulitis with inflammatory changes and thickening just proximal to the prior sigmoid resection and anastomosis.) Assessment and Plan (1) Diverticulitis Narrative/Plan: 79-year-old female with multiple medical comorbidities including for episodes of diverticulitis in the past and prior partial colectomy with reanastomosis for treatment of diverticula who presents to the hospital with abdominal pain. Found to have leukocytosis of 19.[address] findings consistent with uncomplicated diverticulitis. Current Visit: Yes Status: Acute Code(s): K57.92 - DVTRCLI OF INTEST, PART UNSP, W/O PERF OR ABSCESS W/O BLEED SNOMED Code(s): 585238831 (2) Abdominal pain Current Visit: Yes Status: Acute Code(s): R10.9 - UNSPECIFIED ABDOMINAL PAIN SNOMED Code(s): 99059745 (3) Leukocytosis Current Visit: Yes Status: Acute Code(s): D72.829 - ELEVATED WHITE BLOOD CELL COUNT, UNSPECIFIED SNOMED Code(s): 362826286 Plan: Supportive care Nothing by mouth except for ice chips Ceftriaxone and Flagyl therapy added for treatment of diverticulitis Continue to monitor CBC, BMP, LFTs Continue IV fluid hydration Continue pain control No plan for endoscopic evaluation at this time Surgical service consulted to see the patient Thank you for allowing us to participate in the care of the patient
--- NOTE | 2020-06-10 16:41 | P.PN ---
Subjective this is a pleasant 79 years old female with past medical history of memory impairment, hypothyroidism, hiatal hernia, history of diverticulitis, atrial fibrillation on Xarelto and coronary artery disease status post cardiac ablation and AICD and pacemaker. Patient presents because of generalized abdominal pain with left lower quadrant tenderness for about one week associated with constipation for the last 4 days and nausea but no vomiting. Patient denies chest pain no dyspnea. On admission labs showed leukocytosis of 19.2 K. INR is 1.2. Creatinine is slightly elevated at 1.3 which is close to baseline. Elevated troponin 0.04 and 0.04, however her troponin is chronically elevated 0.032 0.04. Urinalysis showed large leukocyte esterase. EKG showing ventricular pacemaker at 61. CT of the abdomen and pelvis showing generalized colonic diverticulosis with evidence of acute diverticulitis with moderate surrounding wall thickening. Reactive mild pelvic ascites. his or free air 06/10/2020 Patient is still complaining of from significant pain in her lower abdomen especially tenderness in the left lower quadrant area. However no more nausea vomiting, still have no bowel movement by passing gases. Hemodynamically stable and WBC is a trending down Creatinine is still elevated at 1.41. We will increase her IV normal saline fluids from 50 to 100 mL/h Discussed with surgery team, no need for surgical intervention Discussed with cardiology, her troponin elevation is chronic. Patient can call to general medical floor Review of Systems CONSTITUTIONAL: No fever, no malaise, no fatigue. HEENT: No recent visual problems or hearing problems. Denied any sore throat. CARDIOVASCULAR: No orthopnea, PND, no palpitations, no syncope. PULMONARY: No shortness of breath, no cough, no hemoptysis. GASTROINTESTINAL: No diarrhea, no vomiting, . Normoactive bowel sounds. NEUROLOGICAL: No headaches, no weakness, no numbness. Active Medications Generic Name Dose Route Start Last Admin Trade Name Freq PRN Reason Stop Dose Admin Allopurinol 100 mg 06/09/20 21:15 06/09/20 22:48 Allopurinol 100 Mg Tab PO 100 mg HS REYNA Administration Sodium Chloride 1,000 mls @ 100 mls/hr 06/09/20 13:00 06/10/20 09:49 Saline 0.9% IV 50 mls/hr .Q10H REYNA Administration Metronidazole 500 mg/ IV 100 mls @ 100 mls/hr 06/09/20 20:00 06/10/20 13:04 Solution IVPB 100 mls/hr Q8H REYNA Administration Ceftriaxone Sodium 1 gm/ 50 mls @ 100 mls/hr 06/10/20 09:00 06/10/20 09:48 Sodium Chloride IVPB 100 mls/hr Q24HR REYNA Administration Morphine Sulfate 4 mg 06/09/20 12:52 06/10/20 09:48 Morphine Sulfate 4 Mg/Ml Syringe IV 4 mg Q4HR PRN Administration Severe Pain Naloxone HCl 0.2 mg 06/09/20 12:52 Naloxone 0.4 Mg/Ml 1 Ml Vial IV Q2M PRN Opioid Reversal Rivaroxaban 20 mg 06/09/20 21:15 06/09/20 22:48 Rivaroxaban 20 Mg Tab PO 20 mg W/SUPPER REYNA Administration Sacubitril/Valsartan 1 each 06/09/20 21:15 06/10/20 09:48 Sacubitril/Valsartan 24 Mg-26 Mg Tablet PO 1 each BID REYNA Administration Objective - Vital Signs Vital signs: Vital Signs Temp 98.5 F 06/10/20 08:00 Pulse 68 06/10/20 13:10 Resp 18 06/10/20 13:10 BP 107/56 06/10/20 13:10 Pulse Ox 95 06/10/20 08:00 Intake & Output 06/09/20 06/10/20 06/10/20 18:59 06:59 18:59 Output Total 100 100 Balance -100 -100 Weight 78.471 kg 81.4 kg Output: Urine 100 100 Other: Voiding Method Toilet # Voids 1 - Exam GENERAL: The patient is alert and oriented x3, not in any acute distress. Well developed, well nourished. HEENT: Pupils are round and equally reacting to light. EOMI. No scleral icterus. No conjunctival pallor. Normocephalic, atraumatic. No pharyngeal erythema. No thyromegaly. CARDIOVASCULAR: S1 and S2 present. No murmurs, rubs, or gallops. PULMONARY: Chest is clear to auscultation, no wheezing or crackles. -ABDOMEN: Soft, LLQ tenderness, no rebound tenderness, nondistended, normoactive bowel sounds. No palpable organomegaly. MUSCULOSKELETAL: No joint swelling or deformity. EXTREMITIES: No cyanosis, clubbing, or pedal edema. NEUROLOGICAL: Gross neurological examination did not reveal any focal deficits. SKIN: No rashes. no petechiae. - Labs CBC & Chem 7: 06/10/20 09:17 12 09:17 Labs: Abnormal Lab Results - Last 24 Hours (Table) 06/09/20 06/10/20 06/10/20 Range/Units 17:24 09:17 09:17 WBC 14.7 H (3.8-10.6) k/uL Neutrophils # 12.1 H (1.3-7.7) k/uL BUN 30 H (7-17) mg/dL Creatinine 1.41 H (0.52-1.04) mg/dL Troponin I 0.043 H* (0.000-0.034) ng/mL Assessment and Plan Assessment: Acute diverticulitis Chronic kidney disease, stage III Elevated troponin, chronic Atrial fibrillation on Xarelto Hiatal hernia Status post pacemaker and AICD Plan: This is a pleasant 79 years old female who presents with acute diverticulitis and generalized abdominal pain with left lower quadrant tenderness. Continue with ceftriaxone and Flagyl. Follow-up culture results. Bowel rest and IV fluids. GI and surgery consult. Cardiology already consulted for elevated troponin but this is chronic Labs and medication were reviewed.. Continue same treatment. Continue with symptomatic treatment. Resume home medication. Monitor lytes and vitals. DVT and GI prophylaxis. Further recommendations depends on the clinical course of t he patient DVT prophylaxis: On Xarelto GI Prophylaxis: Ppi Prognosis is guarded
[2020-06-10] MEDS: RIVAROXABAN 20 MG TAB PO SCH (18:14)
--- NOTE | 2020-06-10 19:24 | P.PN ---
Subjective Progress Note Date: 06/10/20 Principal diagnosis: Diverticulitis Patient is seen lying in bed today still reporting some abdominal pain, somewhat improved. No nausea or vomiting. Objective - Vital Signs Vital signs: Vital Signs Temp 98.5 F 06/10/20 08:00 Pulse 68 06/10/20 13:10 Resp 18 06/10/20 13:10 BP 107/56 06/10/20 13:10 Pulse Ox 95 06/10/20 08:00 Intake & Output 06/09/20 06/10/20 06/10/20 18:59 06:59 18:59 Output Total 100 100 Balance -100 -100 Weight 78.471 kg 81.4 kg Output: Urine 100 100 Other: Voiding Method Toilet # Voids 1 - Exam On physical examination, patient appears comfortable in no apparent distress. HEAD: Normocephalic, atraumatic. EYES: No scleral icterus. No conjunctival injection. MOUTH: No lesions, tongue midline. NECK: Trachea midline, no gross abnormalities. ABDOMEN: Soft, obese, moderately tender in the LLQ. Bowel sounds are positive. No organomegaly. No guarding or rigidity. EXTREMITIES: No pedal edema. SKIN: No rashes, no jaundice. NEUROLOGIC: Alert and oriented x3. No focal deficits. - Labs CBC & Chem 7: 06/10/20 09:17 06/10/20 09:17 Labs: Abnormal Lab Results - Last 24 Hours (Table) 06/09/20 06/10/20 06/10/20 Range/Units 17:24 09:17 09:17 WBC 14.7 H (3.8-10.6) k/uL Neutrophils # 12.1 H (1.3-7.7) k/uL BUN 30 H (7-17) mg/dL Creatinine 1.41 H (0.52-1.04) mg/dL Troponin I 0.043 H* (0.000-0.034) ng/mL Assessment and Plan (1) Diverticulitis Narrative/Plan: 79-year-old female with multiple medical comorbidities including for episodes of diverticulitis in the past and prior partial colectomy with reanastomosis for treatment of diverticula who presents to the hospital with abdominal pain. Found to have leukocytosis of 19.[address] findings consistent with uncomplicated diverticulitis. Pain somewhat improved with WBC trending down today. Current Visit: Yes Status: Acute Code(s): K57.92 - DVTRCLI OF INTEST, PART UNSP, W/O PERF OR ABSCESS W/O BLEED SNOMED Code(s): 817323448 (2) Abdominal pain Current Visit: Yes Status: Acute Code(s): R10.9 - UNSPECIFIED ABDOMINAL PAIN SNOMED Code(s): 57490782 (3) Leukocytosis Current Visit: Yes Status: Acute Code(s): D72.829 - ELEVATED WHITE BLOOD CELL COUNT, UNSPECIFIED SNOMED Code(s): 260439784 Plan: Supportive care Nothing by mouth except for ice chips, okay for liquids tomorrow if abdominal pain is improving Ceftriaxone and Flagyl therapy Continue to monitor CBC, BMP, LFTs Continue IV fluid hydration Continue pain control No plan for endoscopic evaluation at this time Surgical service consulted to see the patient with no plans for surgical intervention Thank you for allowing us to participate in the care of the patient
[2020-06-10] MEDS: allopurinoL 100 MG TAB PO SCH (20:39)
[2020-06-10] MEDS: HYDROmorphone 0.5 MG/0.5 ML SYRINGE IVP PRN ×2 (20:39→23:54)
[2020-06-11] MEDS: metroNIDAZOLE-NS PMX 500 MG in SALINE 1 100ML.BAG IVPB SCH ×3 (03:39→20:33)
[2020-06-11] MEDS: SODIUM CHLORIDE 0.9% 1,000 ML IV SCH ×2 (03:42→16:40)
[2020-06-11 06:05] LABS: Basophils % (A) 0 %; Eosinophils # (A) 0.1 k/uL (0-0.7); Eosinophils % (A) 1 %; HCT 33.8 % (34.0-46.0); HGB 10.9 gm/dL (11.4-16.0); Lymphocytes # (A) 1.5 k/uL (1.0-4.8); Lymphocytes % (A) 12 %; MCH 30.4 pg (25.0-35.0); MCHC 32.2 g/dL (31.0-37.0); MCV 94.4 fL (80.0-100.0); Mean Platelet Volume 8.5; Monocytes # (A) 0.8 k/uL (0-1.0); Monocytes % (A) 7 %; Neutrophils # (A) 9.2 k/uL (1.3-7.7); Neutrophils % (A) 78 %; Platelet Count 171 k/uL (150-450); RBC 3.58 m/uL (3.80-5.40); RDW 13.1 % (11.5-15.5); WBC 11.8 k/uL (3.8-10.6)
[2020-06-11 06:11] LABS: Calcium 8.7 mg/dL (8.4-10.2); Magnesium 2.1 mg/dL (1.6-2.3); Potassium 4.3 mmol/L (3.5-5.1)
[2020-06-11] MEDS: HYDROmorphone 0.5 MG/0.5 ML SYRINGE IVP PRN ×2 (07:40→11:17)
[2020-06-11] MEDS: SACUBITRIL/VALSARTAN 24 MG-26 MG TABLET PO SCH ×2 (07:45→20:33)
--- NOTE | 2020-06-11 11:49 | P.PN ---
Progress Note - Text Progress Note Date: 06/11/20 Patient still has complaints of left lower quadrant pain. It is slightly better yesterday. On exam vital signs are stable. Abdomen soft. There is tenderness in the left lower quadrant. There is no rebound or guarding. Diverticulitis. Patient's white count has improved. She'll receive IV antibiotic.
[2020-06-11] MEDS: MORPHINE SULFATE 4 MG/ML SYRINGE IV PRN ×3 (13:08→20:33)
[2020-06-11] MEDS: RIVAROXABAN 20 MG TAB PO SCH (16:52)
--- NOTE | 2020-06-11 18:08 | P.PN ---
Subjective Progress Note Date: 06/11/20 Principal diagnosis: Diverticulitis Patient is seen lying in bed today. Again she is reporting persistence of the abdominal pain however is improving and she is less tender to palpation. She has been nothing by mouth except for ice chips. Objective - Vital Signs Vital signs: Vital Signs Temp 97.7 F 06/11/20 07:49 Pulse 61 06/11/20 07:49 Resp 18 06/11/20 07:54 BP 122/79 06/11/20 07:49 Pulse Ox 96 06/11/20 07:49 Intake & Output 06/10/20 06/11/20 06/11/20 18:59 06:59 18:59 Output Total 100 Balance -100 Output: Urine 100 Other: Voiding Method Toilet # Voids 2 - Exam On physical examination, patient appears comfortable in no apparent distress. HEAD: Normocephalic, atraumatic. EYES: No scleral icterus. No conjunctival injection. MOUTH: No lesions, tongue midline. NECK: Trachea midline, no gross abnormalities. ABDOMEN: Soft, obese, moderately tender in the LLQ. Bowel sounds are positive. No organomegaly. No guarding or rigidity. EXTREMITIES: No pedal edema. SKIN: No rashes, no jaundice. NEUROLOGIC: Alert and oriented x3. No focal deficits. - Labs CBC & Chem 7: 06/11/20 05:33 06/11/20 05:33 Labs: Abnormal Lab Results - Last 24 Hours (Table) 06/11/20 06/11/20 Range/Units 05:33 05:33 WBC 11.8 H (3.8-10.6) k/uL RBC 3.58 L (3.80-5.40) m/uL Hgb 10.9 L (11.4-16.0) gm/dL Hct 33.8 L (34.0-46.0) % Neutrophils # 9.2 H (1.3-7.7) k/uL BUN 25 H (7-17) mg/dL Creatinine 1.06 H (0.52-1.04) mg/dL Assessment and Plan (1) Diverticulitis Narrative/Plan: 79-year-old female with multiple medical comorbidities including for episodes of diverticulitis in the past and prior partial colectomy with reanastomosis for treatment of diverticula who presents to the hospital with abdominal pain. Found to have leukocytosis of 19.[address] findings consistent with uncomplicated diverticulitis. Pain somewhat improved with WBC trending down today. Current Visit: Yes Status: Acute Code(s): K57.92 - DVTRCLI OF INTEST, PART UNSP, W/O PERF OR ABSCESS W/O BLEED SNOMED Code(s): 317645573 (2) Abdominal pain Current Visit: Yes Status: Acute Code(s): R10.9 - UNSPECIFIED ABDOMINAL PAIN SNOMED Code(s): 10860389 (3) Leukocytosis Current Visit: Yes Status: Acute Code(s): D72.829 - ELEVATED WHITE BLOOD CELL COUNT, UNSPECIFIED SNOMED Code(s): 901873699 Plan: Supportive care Clear liquid diet, patient will to back off if abdominal pain worsens Ceftriaxone and Flagyl therapy Continue to monitor CBC, BMP, LFTs Continue IV fluid hydration Continue pain control No plan for endoscopic evaluation at this time Surgical service consulted to see the patient with no plans for surgical intervention Thank you for allowing us to participate in the care of the patient
[2020-06-11] MEDS: allopurinoL 100 MG TAB PO SCH (20:33)
--- NOTE | 2020-06-11 20:35 | P.PN ---
Subjective this is a pleasant 79 years old female with past medical history of memory impairment, hypothyroidism, hiatal hernia, history of diverticulitis, atrial fibrillation on Xarelto and coronary artery disease status post cardiac ablation and AICD and pacemaker. Patient presents because of generalized abdominal pain with left lower quadrant tenderness for about one week associated with constipation for the last 4 days and nausea but no vomiting. Patient denies chest pain no dyspnea. On admission labs showed leukocytosis of 19.2 K. INR is 1.2. Creatinine is slightly elevated at 1.3 which is close to baseline. Elevated troponin 0.04 and 0.04, however her troponin is chronically elevated 0.032 0.04. Urinalysis showed large leukocyte esterase. EKG showing ventricular pacemaker at 61. CT of the abdomen and pelvis showing generalized colonic diverticulosis with evidence of acute diverticulitis with moderate surrounding wall thickening. Reactive mild pelvic ascites. his or free air 06/10/2020 Patient is still complaining of from significant pain in her lower abdomen especially tenderness in the left lower quadrant area. However no more nausea vomiting, still have no bowel movement by passing gases. Hemodynamically stable and WBC is a trending down Creatinine is still elevated at 1.41. We will increase her IV normal saline fluids from 50 to 100 mL/h Discussed with surgery team, no need for surgical intervention Discussed with cardiology, her troponin elevation is chronic. Patient can call to general medical floor 06/11/2020 Patient has less pain in the left lower quadrant of the abdomen however still significant hurting. No nausea vomiting, still have no bowel movement because she still without food this morning, patient agrees to start liquid diet Leukocytosis is improving. Creatinine is trending down to 1.1 Continue with antibiotics of ceftriaxone and Flagyl as well as gentle hydration and we will lower to 75 mL/h. Also she is on Dilaudid for pain and Xarelto. I discussed the case with Dr. Tiki luna today, no plan for surgical intervention Objective - Vital Signs Vital signs: Vital Signs Temp 97.8 F 06/11/20 14:00 Pulse 60 06/11/20 14:00 Resp 16 06/11/20 14:00 BP 109/69 06/11/20 14:00 Pulse Ox 97 06/11/20 14:00 Intake & Output 06/10/20 06/11/20 06/11/20 18:59 06:59 18:59 Output Total 100 Balance -100 Output: Urine 100 Other: Voiding Method Toilet # Voids 2 - Exam GENERAL: The patient is alert and oriented x3, not in any acute distress. Well developed, well nourished. HEENT: Pupils are round and equally reacting to light. EOMI. No scleral icterus. No conjunctival pallor. Normocephalic, atraumatic. No pharyngeal erythema. No thyromegaly. CARDIOVASCULAR: S1 and S2 present. No murmurs, rubs, or gallops. PULMONARY: Chest is clear to auscultation, no wheezing or crackles. -ABDOMEN: Soft, LLQ tenderness, no rebound tenderness, nondistended, normoactive bowel sounds. No palpable organomegaly. MUSCULOSKELETAL: No joint swelling or deformity. EXTREMITIES: No cyanosis, clubbing, or pedal edema. NEUROLOGICAL: Gross neurological examination did not reveal any focal deficits. SKIN: No rashes. no petechiae. - Labs CBC & Chem 7: 06/11/20 05:33 06/11/20 05:33 Labs: Abnormal Lab Results - Last 24 Hours (Table) 06/11/20 06/11/20 Range/Units 05:33 05:33 WBC 11.8 H (3.8-10.6) k/uL RBC 3.58 L (3.80-5.40) m/uL Hgb 10.9 L (11.4-16.0) gm/dL Hct 33.8 L (34.0-46.0) % Neutrophils # 9.2 H (1.3-7.7) k/uL BUN 25 H (7-17) mg/dL Creatinine 1.06 H (0.52-1.04) mg/dL Assessment and Plan Assessment: Acute diverticulitis Chronic kidney disease, stage III Elevated troponin, chronic Atrial fibrillation on Xarelto Hiatal hernia Status post pacemaker and AICD Plan: This is a pleasant 79 years old female who presents with acute diverticulitis and generalized abdominal pain with left lower quadrant tenderness. Continue with ceftriaxone and Flagyl. Follow-up culture results. Start liquid diet and IV fluids. GI and surgery consult. Cardiology already consulted for elevated troponin but this is chronic Labs and medication were reviewed.. Continue same treatment. Continue with symptomatic treatment. Resume home medication. Monitor lytes and vitals. DVT and GI prophylaxis. Further recommendations depends on the clinical course of the patient DVT prophylaxis: On Xarelto GI Prophylaxis: Ppi Prognosis is guarded
[2020-06-12] MEDS: MORPHINE SULFATE 4 MG/ML SYRINGE IV PRN ×4 (00:19→19:23)
[2020-06-12] MEDS: SODIUM CHLORIDE 0.9% 1,000 ML IV SCH ×3 (01:34→15:05)
[2020-06-12] MEDS: metroNIDAZOLE-NS PMX 500 MG in SALINE 1 100ML.BAG IVPB SCH ×3 (03:36→19:23)
[2020-06-12 05:45] LABS: Basophils % (A) 0 %; Eosinophils # (A) 0.1 k/uL (0-0.7); Eosinophils % (A) 1 %; HCT 32.6 % (34.0-46.0); HGB 11.1 gm/dL (11.4-16.0); Lymphocytes # (A) 1.2 k/uL (1.0-4.8); Lymphocytes % (A) 12 %; MCH 31.9 pg (25.0-35.0); MCHC 33.9 g/dL (31.0-37.0); Mean Platelet Volume 8.2; Monocytes # (A) 0.7 k/uL (0-1.0); Monocytes % (A) 7 %; Neutrophils # (A) 7.8 k/uL (1.3-7.7); Neutrophils % (A) 79 %; Platelet Count 165 k/uL (150-450); RBC 3.47 m/uL (3.80-5.40); RDW 12.6 % (11.5-15.5); WBC 9.9 k/uL (3.8-10.6)
[2020-06-12] MEDS: SACUBITRIL/VALSARTAN 24 MG-26 MG TABLET PO SCH ×2 (08:27→19:23)
[2020-06-12 09:24] LABS: African American GFR (CKD) 62.9 (60.0-200.0); Anion Gap 6.7 mmol/L (4.00-12.00); Calcium 8.7 mg/dL (8.7-10.3); Carbon Dioxide 25.3 mmol/L (21.6-31.8); Magnesium 1.9 mg/dL (1.5-2.4); Non-African American GFR(CKD) 54.3 (60.0-200.0); Potassium 4.3 mmol/L (3.5-5.5)
--- NOTE | 2020-06-12 10:45 | P.PN ---
Subjective Progress Note Date: 06/12/20 CHIEF COMPLAINT: Abdominal pain HISTORY OF PRESENT ILLNESS: Patient is being followed for an acute divert iculitis. She reports improvement since admission. However, she still having pain about 7 out of 10 in both the right and left lower abdomen. She is passing gas. She is not having any bowel movements. Denies any nausea or vomiting. Currently on a clear liquid diet. Still recorded requiring IV pain medication. Afebrile. WBC normalized to 9.9 hemoglobin 11.1 PHYSICAL EXAM: VITAL SIGNS: Reviewed. GENERAL: Well-developed in no acute distress. HEENT: No sclera icterus. Extraocular movements grossly intact. Moist buccal mucosa. Head is atraumatic, normocephalic. ABDOMEN: Soft. Nondistended. Tenderness with patient of the left lower quadrant NEUROLOGIC: Alert and oriented. Cranial nerves II through XII grossly intact. ASSESSMENT: 1. Acute diverticulitis of the proximal sigmoid colon 2. Prior history of bowel resection for diverticulitis PLAN: -Continue IV antibiotics, Rocephin and Flagyl -Continue IV pain medication as needed -Continue clear liquid diet -Continue supportive care Physician Textile Dyer note has been reviewed by physician. Signing provider agrees with the documented findings, assessment, and plan of care. Objective - Vital Signs Vital signs: Vital Signs Temp 98.1 F 06/12/20 07:53 Pulse 59 L 06/12/20 07:53 Resp 18 06/12/20 07:53 BP 132/76 06/12/20 07:53 Pulse Ox 96 06/12/20 07:53 Intake & Output 06/11/20 06/12/20 06/12/20 18:59 06:59 18:59 Intake Total 420 Balance 420 Intake: Oral 420 Other: Voiding Method Toilet # Voids 3 1 - Labs CBC & Chem 7: 06/12/20 05:06 06/12/20 05:06 Labs: Abnormal Lab Results - Last 24 Hours (Table) 06/12/20 06/12/20 Range/Units 05:06 05:06 RBC 3.47 L (3.80-5.40) m/uL Hgb 11.1 L (11.4-16.0) gm/dL Hct 32.6 L (34.0-46.0) % Neutrophils # 7.8 H (1.3-7.7) k/uL Est GFR (CKD-EPI)NonAf 54.3 L (60.0-200.0)
--- NOTE | 2020-06-12 11:59 | P.PN ---
Subjective Progress Note Date: 06/12/20 Principal diagnosis: Diverticulitis This is a 79-year-old female who was admitted to the hospital with acute onset of abdominal pain with a prior history of diverticulitis with prior bowel resection. She had a CT of the abdomen and pelvis which did show active diverticulitis. She was started on IV Rocephin and Flagyl and continues. Today she states her pain is better than yesterday, she still has some abdominal tenderness to palpation. She remains on a clear liquid diet. She's been afebrile. She has not had a bowel movement since she has been to the hospital. Objective - Vital Signs Vital signs: Vital Signs Temp 98.1 F 06/12/20 07:53 Pulse 59 L 06/12/20 07:53 Resp 18 06/12/20 07:53 BP 132/76 06/12/20 07:53 Pulse Ox 96 06/12/20 07:53 Intake & Output 06/11/20 06/12/20 06/12/20 18:59 06:59 18:59 Intake Total 420 Balance 420 Intake: Oral 420 Other: Voiding Method Toilet # Voids 3 1 - Exam General appearance: The patient is alert, oriented, in no acute distress. HET: Head is normocephalic and atraumatic. Conjunctiva pink. Sclera anicteric. Neck: Supple without lymphadenopathy. Abdomen: Soft, lower abdominal tenderness, left greater than right, nondistended with bowel sounds. No guarding or rigidity. Extremities: Normal skin color and turgor. No pedal edema Neurological: No focal deficits. Alert and oriented 3. - Labs CBC & Chem 7: 06/12/20 05:06 06/12/20 05:06 Labs: Abnormal Lab Results - Last 24 Hours (Table) 06/12/20 06/12/20 Range/Units 05:06 05:06 RBC 3.47 L (3.80-5.40) m/uL Hgb 11.1 L (11.4-16.0) gm/dL Hct 32.6 L (34.0-46.0) % Neutrophils # 7.8 H (1.3-7.7) k/uL Est GFR (CKD-EPI)NonAf 54.3 L (60.0-200.0) Assessment and Plan (1) Diverticulitis Narrative/Plan: 79-year-old female with multiple medical comorbidities including for episodes of diverticulitis in the past and prior partial colectomy with reanastomosis for treatment of diverticula who presents to the hospital with abdominal pain. Found to have leukocytosis of 19.[address] findings consistent with uncomplicated diverticulitis. Pain can use to improve, with WBC trending down today. Current Visit: Yes Status: Acute Code(s): K57.92 - DVTRCLI OF INTEST, PART UNSP, W/O PERF OR ABSCESS W/O BLEED SNOMED Code(s): 488892922 (2) Abdominal pain Current Visit: Yes Status: Acute Code(s): R10.9 - UNSPECIFIED ABDOMINAL PAIN SNOMED Code(s): 83383837 (3) Leukocytosis Current Visit: Yes Status: Acute Code(s): D72.829 - ELEVATED WHITE BLOOD CELL COUNT, UNSPECIFIED SNOMED Code(s): 020285311 Plan: Supportive care Advance to full liquid diet Ceftriaxone and Flagyl therapy Continue to monitor CBC, BMP, LFTs Continue IV fluid hydration Continue pain control No plan for endoscopic evaluation at this time Surgical service consulted to see the patient with no plans for surgical intervention Thank you for allowing us to participate in the care of the patient Dr. Cheryl Murillo I agree with the dictator's note, documented as a scribe by María Elena Melissa.
--- NOTE | 2020-06-12 15:27 | P.PN ---
Subjective Progress Note Date: 06/12/20 this is a pleasant 79 years old female with past medical history of memory impairment, hypothyroidism, hiatal hernia, history of diverticulitis, atrial fibrillation on Xarelto and coronary artery disease status post cardiac ablation and AICD and pacemaker. Patient presents because of generalized abdominal pain with left lower quadrant tenderness for about one week associated with constipation for the last 4 days and nausea but no vomiting. Patient denies chest pain no dyspnea. On admission labs showed leukocytosis of 19.2 K. INR is 1.2. Creatinine is slightly elevated at 1.3 which is close to baseline. Elevated troponin 0.04 and 0.04, however her troponin is chronically elevated 0.032 0.04. Urinalysis showed large leukocyte esterase. EKG showing ventricular pacemaker at 61. CT of the abdomen and pelvis showing generalized colonic diverticulosis with evidence of acute diverticulitis with moderate surrounding wall thickening. Reactive mild pelvic ascites. his or free air 06/10/2020 Patient is still complaining of from significant pain in her lower abdomen especially tenderness in the left lower quadrant area. However no more nausea vomiting, still have no bowel movement by passing gases. Hemodynamically stable and WBC is a trending down Creatinine is still elevated at 1.41. We will increase her IV normal saline fluids from 50 to 100 mL/h Discussed with surgery team, no need for surgical intervention Discussed with cardiology, her troponin elevation is chronic. Patient can call to general medical floor 06/11/2020 Patient has less pain in the left lower quadrant of the abdomen however still significant hurting. No nausea vomiting, still have no bowel movement because she still without food this morning, patient agrees to start liquid diet Leukocytosis is improving. Creatinine is trending down to 1.1 Continue with antibiotics of ceftriaxone and Flagyl as well as gentle hydration and we will lower to 75 mL/h. Also she is on Dilaudid for pain and Xarelto. I discussed the case with Dr. Casas today, no plan for surgical intervention 06/12: Patient complains of her abdomen being sore much worse and she has had in the past. She has passed a little bit of gas but no bowel movement. She is currently on clear liquid diet. No nausea or vomiting. She has been afebrile, pulse ox 96% on room air. WBC is down to 9.9, hemoglobin 11.1. Electrolytes and renal function normal. Patient is followed by GI and general surgery. No plan for surgical intervention at this time. Objective - Vital Signs Vital signs: Vital Signs Temp 98.1 F 06/12/20 07:53 Pulse 59 L 06/12/20 07:53 Resp 18 06/12/20 07:53 BP 132/76 06/12/20 07:53 Pulse Ox 96 06/12/20 07:53 Intake & Output 06/11/20 06/12/20 06/12/20 18:59 06:59 18:59 Intake Total 420 Balance 420 Intake: Oral 420 Other: Voiding Method Toilet # Voids 3 1 - Exam Review of systems CONSTITUTIONAL: Denies fever or chills. CARDIOVASCULAR: Denies chest pain, shortness of breath, orthopnea, PND or palpitations. RESPIRATORY: Denies cough. GASTROINTESTINAL: Complains of lower abdominal pain and constipation. Denies diarrhea, nausea or vomiting. MUSCULOSKELETAL: Denies myalgias. NEUROLOGIC: Denies numbness, tingling or weakness. ENDOCRINE: Denies fatigue, weight change, polydipsia or polyurina. GENITOURINARY: Denies burning, hematuria or urgency with micturation. HEMATOLOGIC: Denies history of anemia or bleeding. Physical examination GENERAL: The patient is alert and oriented x3, not in any acute distress. Well developed, well nourished. HEENT: Pupils are round and equally reacting to light. EOMI. No scleral icterus. No conjunctival pallor. Normocephalic, atraumatic. No pharyngeal erythema. No thyromegaly. CARDIOVASCULAR: S1 and S2 present. No murmurs, rubs, or gallops. PULMONARY: Chest is clear to auscultation, no wheezing or crackles. -ABDOMEN: Soft, LLQ tenderness, no rebound tenderness, nondistended, normoactive bowel sounds. No palpable organomegaly. MUSCULOSKELETAL: No joint swelling or deformity. EXTREMITIES: No cyanosis, clubbing, or pedal edema. NEUROLOGICAL: Gross neurological examination did not reveal any focal deficits. SKIN: No rashes. no petechiae. - Labs CBC & Chem 7: 06/12/20 05:06 06/12/20 05:06 Labs: Abnormal Lab Results - Last 24 Hours (Table) 06/12/20 06/12/20 Range/Units 05:06 05:06 RBC 3.47 L (3.80-5.40) m/uL Hgb 11.1 L (11.4-16.0) gm/dL Hct 32.6 L (34.0-46.0) % Neutrophils # 7.8 H (1.3-7.7) k/uL Est GFR (CKD-EPI)NonAf 54.3 L (60.0-200.0) Assessment and Plan Assessment: 1. Acute diverticulitis. Continue ceftriaxone 1 g IV piggyback daily, Flagyl 500 mg IV piggyback every 8 hours, consult with GI and general surgery appreciated. Continue IV fluids of 0.9 normal saline at 100 mL per hour. Continue clear liquid diet. Continue Dilaudid or morphine for pain, and [place] one every 6 hours as needed for breakthrough pain. 2. Chronic kidney disease, stage III. Monitor renal function and electrolytes. 3. Elevated troponin, chronic. Acute coronary syndrome ruled out. Cardiology consult appreciated. 4. Nonischemic cardiomyopathy status post AICD. Cardiology consult appreciated. Resume Aldactone 25 mg daily once stabilized. 5. Chronic systolic heart failure, stable. Continue Entresto 25 mg/26 mg one twice daily. 6. Chronic atrial fibrillation. Continue Xarelto 20 mg with supper daily. Hold Toprol-XL 200 mg daily and digoxin 125 g daily for bradycardia. 7. Hypertension. Hold Lasix, Toprol XL. Continue Entresto. 8. Dyslipidemia. Hold pravastatin, fenofibrate. 9. History of breast cancer. Hold Exemestane 25 mg daily 10. Hypothyroidism. Continue levothyroxine 75 g daily. 11. Chronic gout. Continue allopurinol 100 mg at bedtime. 12. DVT prophylaxis. Xarelto 20 mg daily. 13. GI prophylaxis. Protonix 40 mg IV daily. CODE STATUS: Full code
[2020-06-12] MEDS: RIVAROXABAN 20 MG TAB PO SCH (16:16)
[2020-06-12] MEDS: allopurinoL 100 MG TAB PO SCH (19:23)
[2020-06-12] MEDS: HYDROmorphone 0.5 MG/0.5 ML SYRINGE IVP PRN (22:29)
[2020-06-13] MEDS: MORPHINE SULFATE 4 MG/ML SYRINGE IV PRN (02:01)
[2020-06-13] MEDS: metroNIDAZOLE-NS PMX 500 MG in SALINE 1 100ML.BAG IVPB SCH ×3 (04:10→19:37)
[2020-06-13] MEDS: LEVOTHYROXINE 75 MCG TAB PO SCH (06:13)
[2020-06-13 08:05] LABS: Basophils % (A) 0 %; Eosinophils # (A) 0.1 k/uL (0-0.7); Eosinophils % (A) 1 %; HGB 11.5 gm/dL (11.4-16.0); Lymphocytes # (A) 1.5 k/uL (1.0-4.8); Lymphocytes % (A) 12 %; MCH 31.7 pg (25.0-35.0); MCHC 33.7 g/dL (31.0-37.0); MCV 94.2 fL (80.0-100.0); Mean Platelet Volume 8.4; Monocytes # (A) 0.7 k/uL (0-1.0); Monocytes % (A) 5 %; Neutrophils # (A) 10.2 k/uL (1.3-7.7); Neutrophils % (A) 81 %; Platelet Count 200 k/uL (150-450); RBC 3.61 m/uL (3.80-5.40); RDW 12.6 % (11.5-15.5); WBC 12.6 k/uL (3.8-10.6)
[2020-06-13] MEDS: SODIUM CHLORIDE 0.9% 1,000 ML IV SCH (08:20)
[2020-06-13] MEDS: SACUBITRIL/VALSARTAN 24 MG-26 MG TABLET PO SCH ×2 (08:21→21:00)
[2020-06-13] MEDS: PANTOPRAZOLE 40 MG/10 ML VIAL IVP SCH (08:21)
[2020-06-13] MEDS: HYDROcodone/APAP 5-325MG 1 EACH TAB PO PRN ×3 (08:31→21:59)
--- NOTE | 2020-06-13 09:58 | P.PN ---
Subjective Progress Note Date: 06/13/20 CHIEF COMPLAINT: Abdominal pain HISTORY OF PRESENT ILLNESS: Patient is being followed for an acute divert iculitis. Patient still rating her pain about a 7 out of 10. She does report that it is slightly better than admission. Her white count is up to 12.6. Afebrile. She was able to have a small bowel movement and no evidence of blood in stool. Patient requiring IV pain medication as well as [place] for pain control. Patient currently on a full liquid diet. PHYSICAL EXAM: VITAL SIGNS: Reviewed. GENERAL: Well-developed in no acute distress. HEENT: No sclera icterus. Extraocular movements grossly intact. Moist buccal mucosa. Head is atraumatic, normocephalic. ABDOMEN: Soft. Nondistended. Tenderness with patient of the left lower quadrant NEUROLOGIC: Alert and oriented. Cranial nerves II through XII grossly intact. ASSESSMENT: 1. Acute diverticulitis of the proximal sigmoid colon 2. Prior history of bowel resection for diverticulitis PLAN: -We will place patient patient back on a clear liquid diet due to her having abdominal pain and elevated white count. -Repeat computed tomography scan the abdomen and pelvis with oral contrast -Continue IV antibiotics, Rocephin and Flagyl -Continue pain medication as needed -Continue supportive care Physician Enrollment Clerk note has been reviewed by physician. Signing provider agrees with the documented findings, assessment, and plan of care. Objective - Vital Signs Vital signs: Vital Signs Temp 97.6 F 06/13/20 07:24 Pulse 60 06/13/20 07:24 Resp 18 06/13/20 07:24 BP 125/67 06/13/20 07:24 Pulse Ox 93 L 06/13/20 07:24 Intake & Output 06/12/20 06/13/20 06/13/20 18:59 06:59 18:59 Intake Total 856 240 Balance 856 240 Intake: Oral 656 240 Other 200 Other: Voiding Method Toilet # Voids 1 # Bowel Movements 1 - Labs CBC & Chem 7: 06/13/20 07:15 06/12/20 05:06 Labs: Abnormal Lab Results - Last 24 Hours (Table) 06/13/20 Range/Units 07:15 WBC 12.6 H (3.8-10.6) k/uL RBC 3.61 L (3.80-5.40) m/uL Neutrophils # 10.2 H (1.3-7.7) k/uL
[2020-06-13] MEDS: IOPAMIDOL CONTRAST (ORAL USE) VIAL PO PRN ×2 (13:32→14:47)
[2020-06-13 13:48] LABS: African American GFR (CKD) 62.9 (60.0-200.0); Anion Gap 7.8 mmol/L (4.00-12.00); Calcium 9.1 mg/dL (8.7-10.3); Carbon Dioxide 24.2 mmol/L (21.6-31.8); Magnesium 1.8 mg/dL (1.5-2.4); Non-African American GFR(CKD) 54.3 (60.0-200.0); Potassium 4.1 mmol/L (3.5-5.5)
--- NOTE | 2020-06-13 13:52 | P.PN ---
Subjective Progress Note Date: 06/13/20 Principal diagnosis: Diverticulitis This is a 79-year-old female who was admitted to the hospital with acute onset of abdominal pain with a prior history of diverticulitis with prior bowel resection. She had a CT of the abdomen and pelvis which did show active diverticulitis. She was started on IV Rocephin and Flagyl and continues. Today she states her pain is better than yesterday, she still has some abdominal tenderness to palpation. She had a full liquid diet yesterday evening without any problems. Surgery saw patient this morning and put her back on a clear liquid diet due to elevated WBC. Today's WBC 12.6. She's been afebrile. She port having a small bowel movement yesterday evening. States she did not request any pain medication through the evening, did request pain medication this morning. She is getting oral pain medication, not requiring IV pain medication. Objective - Vital Signs Vital signs: Vital Signs Temp 97.6 F 06/13/20 07:24 Pulse 60 06/13/20 07:24 Resp 18 06/13/20 07:24 BP 125/67 06/13/20 07:24 Pulse Ox 93 L 06/13/20 07:24 Intake & Output 06/12/20 06/13/20 06/13/20 18:59 06:59 18:59 Intake Total 856 240 Balance 856 240 Intake: Oral 656 240 Other 200 Other: Voiding Method Toilet # Voids 1 # Bowel Movements 1 2 - Exam General appearance: The patient is alert, oriented, in no acute distress. HET: Head is normocephalic and atraumatic. Conjunctiva pink. Sclera anicteric. Neck: Supple without lymphadenopathy. Abdomen: Soft, lower abdominal tenderness improving, left greater than right, nondistended with bowel sounds. No guarding or rigidity. Extremities: Normal skin color and turgor. No pedal edema Neurological: No focal deficits. Alert and oriented 3. - Labs CBC & Chem 7: 06/13/20 07:15 06/12/20 05:06 Labs: Abnormal Lab Results - Last 24 Hours (Table) 06/13/20 Range/Units 07:15 WBC 12.6 H (3.8-10.6) k/uL RBC 3.61 L (3.80-5.40) m/uL Neutrophils # 10.2 H (1.3-7.7) k/uL Assessment and Plan (1) Diverticulitis Narrative/Plan: 79-year-old female with multiple medical comorbidities including for episodes of diverticulitis in the past and prior partial colectomy with reanastomosis for treatment of diverticula who presents to the hospital with abdominal pain. Found to have leukocytosis of 19.[address] findings consistent with uncomplicated diverticulitis. Pain can use to improve, with WBC trending down today. Current Visit: Yes Status: Acute Code(s): K57.92 - DVTRCLI OF INTEST, PART UNSP, W/O PERF OR ABSCESS W/O BLEED SNOMED Code(s): 565348299 (2) Abdominal pain Current Visit: Yes Status: Acute Code(s): R10.9 - UNSPECIFIED ABDOMINAL PAIN SNOMED Code(s): 04331980 (3) Leukocytosis Current Visit: Yes Status: Acute Code(s): D72.829 - ELEVATED WHITE BLOOD CELL COUNT, UNSPECIFIED SNOMED Code(s): 237197282 Plan: Supportive care Patient put to clear liquid diet per surgery Continue Ceftriaxone and Flagyl therapy Continue to monitor CBC, BMP, LFTs Continue IV fluid hydration Continue pain control No plan for endoscopic evaluation at this time Surgical service consulted to see the patient with no plans for surgical intervention Thank you for allowing us to participate in the care of the patient Dr. Cheryl Murillo I agree with the dictator's note, documented as a scribe by María Elena Melissa.
[2020-06-13] MEDS ORDERED: FUROSEMIDE 10 MG/ML 2 ML VIAL IV STA (14:50)
[2020-06-13] MEDS: RIVAROXABAN 20 MG TAB PO SCH (15:46)
--- NOTE | 2020-06-13 15:46 | P.PN ---
Subjective Progress Note Date: 06/13/20 this is a pleasant 79 years old female with past medical history of memory impairment, hypothyroidism, hiatal hernia, history of diverticulitis, atrial fibrillation on Xarelto and coronary artery disease status post cardiac ablation and AICD and pacemaker. Patient presents because of generalized abdominal pain with left lower quadrant tenderness for about one week associated with constipation for the last 4 days and nausea but no vomiting. Patient denies chest pain no dyspnea. On admission labs showed leukocytosis of 19.2 K. INR is 1.2. Creatinine is slightly elevated at 1.3 which is close to baseline. Elevated troponin 0.04 and 0.04, however her troponin is chronically elevated 0.032 0.04. Urinalysis showed large leukocyte esterase. EKG showing ventricular pacemaker at 61. CT of the abdomen and pelvis showing generalized colonic diverticulosis with evidence of acute diverticulitis with moderate surrounding wall thickening. Reactive mild pelvic ascites. his or free air 06/10/2020 Patient is still complaining of from significant pain in her lower abdomen especially tenderness in the left lower quadrant area. However no more nausea vomiting, still have no bowel movement by passing gases. Hemodynamically stable and WBC is a trending down Creatinine is still elevated at 1.41. We will increase her IV normal saline fluids from 50 to 100 mL/h Discussed with surgery team, no need for surgical intervention Discussed with cardiology, her troponin elevation is chronic. Patient can call to general medical floor 06/11/2020 Patient has less pain in the left lower quadrant of the abdomen however still significant hurting. No nausea vomiting, still have no bowel movement because she still without food this morning, patient agrees to start liquid diet Leukocytosis is improving. Creatinine is trending down to 1.1 Continue with antibiotics of ceftriaxone and Flagyl as well as gentle hydration and we will lower to 75 mL/h. Also she is on Dilaudid for pain and Xarelto. I discussed the case with Dr. Casas today, no plan for surgical intervention 06/12: Patient complains of her abdomen being sore much worse and she has had in the past. She has passed a little bit of gas but no bowel movement. She is currently on clear liquid diet. No nausea or vomiting. She has been afebrile, pulse ox 96% on room air. WBC is down to 9.9, hemoglobin 11.1. Electrolytes and renal function normal. Patient is followed by GI and general surgery. No plan for surgical intervention at this time. 06/13: Patient has had 2 bowel movements, abdominal pain is slightly improved. CAT scan of the abdomen and pelvis with oral contrast only as ordered for today. IV fluids will be changed to saline with small dose of Lasix IV given. Patient will be resumed on Aldactone 25 mg daily. Patient does have [place] available for breakthrough pain. She is continued on ceftriaxone and Flagyl. She has been afebrile, heart rate 62, blood pressure 147/85, pulse ox 97% on room air. Repeat blood work revealed WBC of 12.6, hemoglobin 11.5. Electrolytes and renal function normal. Magnesium 1.8. Patient is tolerating a clear liquid diet. Objective - Vital Signs Vital signs: Vital Signs Temp 97.6 F 06/13/20 07:24 Pulse 60 06/13/20 07:24 Resp 18 06/13/20 07:24 BP 125/67 06/13/20 07:24 Pulse Ox 93 L 06/13/20 07:24 Intake & Output 06/12/20 06/13/20 06/13/20 18:59 06:59 18:59 Intake Total 856 240 Balance 856 240 Intake: Oral 656 240 Other 200 Other: Voiding Method Toilet # Voids 1 # Bowel Movements 1 2 - Exam Review of systems CONSTITUTIONAL: Denies fever or chills. CARDIOVASCULAR: Denies chest pain, shortness of breath, orthopnea, PND or palpitations. RESPIRATORY: Denies cough. GASTROINTESTINAL: Complains of lower abdominal pain and constipation. Denies diarrhea, nausea or vomiting. MUSCULOSKELETAL: Denies myalgias. NEUROLOGIC: Denies numbness, tingling or weakness. ENDOCRINE: Denies fatigue, weight change, polydipsia or polyurina. GENITOURINARY: Denies burning, hematuria or urgency with micturation. HEMATOLOGIC: Denies history of anemia or bleeding. Physical examination GENERAL: The patient is alert and oriented x3, not in any acute distress. Well developed, well nourished. HEENT: Pupils are round and equally reacting to light. EOMI. No scleral icterus. No conjunctival pallor. Normocephalic, atraumatic. No pharyngeal erythema. No thyromegaly. CARDIOVASCULAR: S1 and S2 present. No murmurs, rubs, or gallops. PULMONARY: Chest is clear to auscultation, no wheezing or crackles. -ABDOMEN: Soft, LLQ tenderness, no rebound tenderness, nondistended, normoactive bowel sounds. No palpable organomegaly. MUSCULOSKELETAL: No joint swelling or deformity. EXTREMITIES: No cyanosis, clubbing, or pedal edema. NEUROLOGICAL: Gross neurological examination did not reveal any focal deficits. SKIN: No rashes. no petechiae. - Labs CBC & Chem 7: 06/13/20 07:15 06/13/20 07:15 Labs: Abnormal Lab Results - Last 24 Hours (Table) 06/13/20 Range/Units 07:15 WBC 12.6 H (3.8-10.6) k/uL RBC 3.61 L (3.80-5.40) m/uL Neutrophils # 10.2 H (1.3-7.7) k/uL Assessment and Plan Assessment: 1. Acute diverticulitis. Continue ceftriaxone 1 g IV piggyback daily, Flagyl 500 mg IV piggyback every 8 hours, consult with GI and general surgery apprec iated. Discontinue IV fluids. Continue clear liquid diet. Continue Dilaudid or morphine for pain, and [place] one every 6 hours as needed for breakthrough pain. Repeat CAT scan of the abdomen and pelvis with oral contrast. 2. Chronic kidney disease, stage III. Monitor renal function and electrolytes. 3. Elevated troponin, chronic. Acute coronary syndrome ruled out. Cardiology consult appreciated. 4. Nonischemic cardiomyopathy status post AICD. Cardiology consult appreciated. Resume Aldactone 25 mg daily. 5. Chronic systolic heart failure, stable. Continue Entresto 25 mg/26 mg one twice daily. Resume Aldactone, Lasix 20 mg IV 1. 6. Chronic atrial fibrillation. Continue Xarelto 20 mg with supper daily. Hold Toprol-XL 200 mg daily and digoxin 125 g daily for bradycardia. 7. Hypertension. Hold Lasix, Toprol XL. Continue Entresto. 8. Dyslipidemia. Hold pravastatin, fenofibrate. 9. History of breast cancer. Hold Exemestane 25 mg daily 10. Hypothyroidism. Continue levothyroxine 75 g daily. 11. Chronic gout. Continue allopurinol 100 mg at bedtime. 12. DVT prophylaxis. Xarelto 20 mg daily. 13. GI prophylaxis. Protonix 40 mg IV daily. CODE STATUS: Full code
--- NOTE | 2020-06-13 15:48 | CT ---
EXAMINATION TYPE: CT abdomen pelvis wo con DATE OF EXAM: 06/13/2020 COMPARISON: 06/09/2020 HISTORY: Abdominal pain CT DLP: 1013 mGycm Automated exposure control for dose reduction was used. TECHNIQUE: Helical acquisition of images was performed from the lung bases through the pelvis. FINDINGS: Cardiac leads are noted. Heart is enlarged. Bilateral lower lobe consolidation and small effusion. Co ronary artery calcification noted. Tiny hiatal hernia. Liver measures enlarged at 20.2 cm. A couple hypodense hepatic lesions are unchan ged measuring up to 1.6 cm suggesting cysts. Cholecystectomy clips. Noncontrast appearance of the adrenal glands, spleen with hilar splenule, and pancreas show no gross abnormal body. Fat density interposed within a cortical defect measuring 1.3 cm lateral lower pole right kidney coul d represent an AML or other cortical defect, unchanged from prior. 3.6 cm lateral left renal cyst. No nspecific perinephric stranding are seen which could be correlated with urinalysis as clinically luis alfredo anted. Mild to moderate atherosclerotic calcifications infrarenal abdominal aorta with minimal fusiform dila tation of the infrarenal portion up to 2.2 cm. No significant ectasia or aneurysm. No dilated small b owel or free air. No mesenteric or retroperitoneal lymphadenopathy. Generalized colonic diverticulosis, greatest along the proximal sigmoid colon where there is outer wa ll thickening and surrounding inflammatory fat stranding and edema tracking into the pelvis with mild pelvic ascites. Small amount of right perirectal fluid collection is seen. No enhancing rim. Finding nonspecific. At the junction of the mid to distal sigmoid colon, there is a staple line from prior r esection and re-anastomosis. Bladder urine distended. Uterus surgically absent. Both ovaries are visualized. No pelvic lymphadenop athy seen. Bones: Hypertrophic facet arthropathy mid to lower lumbar spine with grade 1 retrolisthesis at L2-L3 and L3-L4. Moderate to advanced degenerative disc disease L3-L4. IMPRESSION: 1. Postsurgical change involving the sigmoid colon with acute inflammatory changes in the sigmoid col on suggestive of acute diverticulitis or colitis. Underlying neoplastic process not excluded. Follow resolution recommended. Findings are similar to the recent exam 06/09/2020. 2. There remains a small amount of free fluid within the right pelvis. This is nonspecific. 3. Bilateral lower lobe consolidation and small effusion which appears new from prior exam..
[2020-06-13] MEDS: IPRATROPIUM-ALBUTEROL 3 ML NEB INHALATION PRN (15:49)
[2020-06-13] MEDS: SPIRONOLACTONE 25 MG TAB PO SCH (15:50)
[2020-06-13] MEDS: HYDROmorphone 0.5 MG/0.5 ML SYRINGE IVP PRN (19:33)
[2020-06-13] MEDS: allopurinoL 100 MG TAB PO SCH (21:00)
[2020-06-14] MEDS: IPRATROPIUM-ALBUTEROL 3 ML NEB INHALATION PRN ×4 (02:29→20:29)
[2020-06-14] MEDS: metroNIDAZOLE-NS PMX 500 MG in SALINE 1 100ML.BAG IVPB SCH ×3 (03:01→20:19)
[2020-06-14] MEDS: HYDROcodone/APAP 5-325MG 1 EACH TAB PO PRN ×3 (05:28→21:43)
[2020-06-14] MEDS: LEVOTHYROXINE 75 MCG TAB PO SCH (05:28)
[2020-06-14 06:20] LABS: Basophils % (A) 0 %; Eosinophils # (A) 0.1 k/uL (0-0.7); Eosinophils % (A) 0 %; HCT 34.4 % (34.0-46.0); HGB 11.5 gm/dL (11.4-16.0); Lymphocytes # (A) 1.1 k/uL (1.0-4.8); Lymphocytes % (A) 8 %; MCH 31.3 pg (25.0-35.0); MCHC 33.3 g/dL (31.0-37.0); MCV 93.9 fL (80.0-100.0); Mean Platelet Volume 8.5; Monocytes # (A) 0.8 k/uL (0-1.0); Monocytes % (A) 6 %; Neutrophils # (A) 11.2 k/uL (1.3-7.7); Neutrophils % (A) 84 %; Platelet Count 192 k/uL (150-450); RBC 3.66 m/uL (3.80-5.40); RDW 12.8 % (11.5-15.5); WBC 13.3 k/uL (3.8-10.6)
[2020-06-14] MEDS ORDERED: CALCIUM CARBONATE 500 MG CHEWABLE PO STA (06:20)
[2020-06-14] MEDS: SPIRONOLACTONE 25 MG TAB PO SCH (08:00)
[2020-06-14] MEDS: SACUBITRIL/VALSARTAN 24 MG-26 MG TABLET PO SCH ×2 (08:00→20:42)
[2020-06-14] MEDS: PANTOPRAZOLE 40 MG/10 ML VIAL IVP SCH (08:00)
--- NOTE | 2020-06-14 09:00 | XR ---
EXAMINATION TYPE: XR chest 1V DATE OF EXAM: 06/14/2020 COMPARISON: 11/17/2019 HISTORY: Shortness of breath TECHNIQUE: Single frontal view of the chest is obtained. FINDINGS: Cardiac device seen and there is a coarsened interstitium with basilar consolidation on th e left and small effusion. No pneumothorax. Arthropathy shoulders. IMPRESSION: 1. Left lower lobe infiltrate and small effusion. Correlate for mild central venous congestion or int erstitial pneumonitis.
--- NOTE | 2020-06-14 10:44 | P.PN ---
Subjective Progress Note Date: 06/14/20 CHIEF COMPLAINT: Abdominal pain HISTORY OF PRESENT ILLNESS: Patient is being followed for an acute divert iculitis. Patient complaining of more epigastric pain today. She is reporting improvement in her lower abdominal pain. She is having bowel movements. Reports decreased appetite. White count continues to go up and is at 13.3. She's afebrile. Currently on a clear liquid diet. Lipase 128 CT abdomen and pelvis shows postsurgical changes involving the sigmoid colon with acute inflammatory changes in the sigmoid colon suggestive of acute diverticulitis or colitis. Underlying neoplastic process not excluded. Follow resolution recommended. Findings are similar to recent exam on 06/09/2020. There remains a small amount of free fluid within the right pelvis. Nonspecific. Bilateral lower lobe consolidation and small effusion which appears new from prior exam. Chest x-ray showed left lower lobe infiltrate and small effusion. Correlate for mild central venous congestion or interstitial pneumonitis. Patient did receive a dose of IV Lasix yesterday PHYSICAL EXAM: VITAL SIGNS: Reviewed. GENERAL: Well-developed in no acute distress. HEENT: No sclera icterus. Extraocular movements grossly intact. Moist buccal mucosa. Head is atraumatic, normocephalic. ABDOMEN: Soft. Nondistended. Tenderness with palpation of the epigastric area NEUROLOGIC: Alert and oriented. Cranial nerves II through XII grossly intact. ASSESSMENT: 1. Acute diverticulitis of the proximal sigmoid colon 2. Prior history of bowel resection for diverticulitis PLAN: -Continue clear liquid diet -Continue IV antibiotics, Rocephin and Flagyl -Continue pain medication as needed -Continue supportive care Physician [employer] Crewmember note has been reviewed by physician. Signing provider agrees with the documented findings, assessment, and plan of care. Objective - Vital Signs Vital signs: Vital Signs Temp 98.2 F 06/14/20 08:00 Pulse 61 06/14/20 08:00 Resp 16 06/14/20 08:00 BP 136/80 06/14/20 08:00 Pulse Ox 93 L 06/14/20 01:23 Intake & Output 06/13/20 06/14/20 06/14/20 18:59 06:59 18:59 Intake Total 440 240 Output Total 100 Balance 440 140 Intake: Oral 240 240 Other 200 Output: Urine 100 Other: Voiding Method Toilet # Voids 1 # Bowel Movements 1 1 - Labs CBC & Chem 7: 06/14/20 05:41 06/13/20 07:15 Labs: Abnormal Lab Results - Last 24 Hours (Table) 06/13/20 06/14/20 Range/Units 07:15 05:41 WBC 13.3 H (3.8-10.6) k/uL RBC 3.66 L (3.80-5.40) m/uL Neutrophils # 11.2 H (1.3-7.7) k/uL Est GFR (CKD-EPI)NonAf 54.3 L (60.0-200.0)
[2020-06-14 11:38] VITALS: BMI 30.8
--- NOTE | 2020-06-14 13:42 | P.PN ---
Subjective Progress Note Date: 06/14/20 Principal diagnosis: Diverticulitis This is a 79-year-old female who was admitted to the hospital with acute onset of abdominal pain with a prior history of diverticulitis with prior bowel resection. She had a CT of the abdomen and pelvis which did show active diverticulitis. She was started on IV Rocephin and Flagyl and continues. The patient states her pain is much improved, however does like it has moved more into her upper abdomen. She states her shoulder pain has improved some. She states she has had increased shortness of breath and some coughing since being in the hospital. He had a repeat CT of the abdomen yesterday which shows post surgical change involving the sigmoid colon with acute inflammatory changes in the sigmoid colon suggestive of acute diverticulitis or colitis. Underlying neoplastic process not excluded. Follow resolution recommended. Findings are similar to recent exam on 06/09/2020. There remains a small amount of free flu id within the pelvis, there is bilateral lower lobe consolidation small effusion which appears new from prior exam. She also underwent a chest x-ray this morning which showed a left lower lobe infiltrate and small effusion. Correlate for mild central venous congestion or interstitial pneumonitis. Objective - Vital Signs Vital signs: Vital Signs Temp 98.2 F 06/14/20 08:00 Pulse 73 06/14/20 11:19 Resp 16 06/14/20 08:00 BP 136/80 06/14/20 08:00 Pulse Ox 93 L 06/14/20 01:23 Intake & Output 06/13/20 06/14/20 06/14/20 18:59 06:59 18:59 Intake Total 440 240 Output Total 100 Balance 440 140 Weight 81.4 kg Intake: Oral 240 240 Other 200 Output: Urine 100 Other: Voiding Method Toilet # Voids 1 # Bowel Movements 1 1 - Exam General appearance: The patient is alert, oriented, in no acute distress. HET: Head is normocephalic and atraumatic. Conjunctiva pink. Sclera anicteric. Neck: Supple without lymphadenopathy. Abdomen: Soft, animal lower abdominal tenderness, mild tenderness to palpation in epigastric region, nondistended with bowel sounds. No guarding or rigidity. Extremities: Normal skin color and turgor. No pedal edema Neurological: No focal deficits. Alert and oriented 3. - Labs CBC & Chem 7: 06/14/20 05:41 06/13/20 07:15 Labs: Abnormal Lab Results - Last 24 Hours (Table) 06/13/20 06/14/20 Range/Units 07:15 05:41 WBC 13.3 H (3.8-10.6) k/uL RBC 3.66 L (3.80-5.40) m/uL Neutrophils # 11.2 H (1.3-7.7) k/uL Est GFR (CKD-EPI)NonAf 54.3 L (60.0-200.0) Assessment and Plan (1) Diverticulitis Narrative/Plan: 79-year-old female with multiple medical comorbidities including for episodes of diverticulitis in the past and prior partial colectomy with reanastomosis for treatment of diverticula who presents to the hospital with abdominal pain. Found to have leukocytosis of 19.[address] findings consistent with uncomplicated diverticulitis. Pain can use to improve, with WBC trending down today. Current Visit: Yes Status: Acute Code(s): K57.92 - DVTRCLI OF INTEST, PART UNSP, W/O PERF OR ABSCESS W/O BLEED SNOMED Code(s): 854082384 (2) Abdominal pain Current Visit: Yes Status: Acute Code(s): R10.9 - UNSPECIFIED ABDOMINAL PAIN SNOMED Code(s): 35863738 (3) Leukocytosis Current Visit: Yes Status: Acute Code(s): D72.829 - ELEVATED WHITE BLOOD C ELL COUNT, UNSPECIFIED SNOMED Code(s): 238780723 Plan: Supportive care Advance diet per surgical recommendations Continue Ceftriaxone and Flagyl therapy Continue to monitor CBC, BMP, LFTs Continue IV fluid hydration Continue pain control No plan for endoscopic evaluation at this time Surgical service consulted to see the patient with no plans for surgical intervention Thank you for allowing us to participate in the care of the patient, we will continue to follow Dr. Cheryl Murillo I agree with the dictator's note, documented as a scribe by María Elena Melissa.
[2020-06-14] MEDS: METOPROLOL SUCCINATE (ER) 100 MG TAB.ER.24H PO SCH (15:53)
[2020-06-14] MEDS: RIVAROXABAN 20 MG TAB PO SCH (16:35)
--- NOTE | 2020-06-14 17:10 | P.PN ---
Subjective Progress Note Date: 06/14/20 this is a pleasant 79 years old female with past medical history of memory impairment, hypothyroidism, hiatal hernia, history of diverticulitis, atrial fibrillation on Xarelto and coronary artery disease status post cardiac ablation and AICD and pacemaker. Patient presents because of generalized abdominal pain with left lower quadrant tenderness for about one week associated with constipation for the last 4 days and nausea but no vomiting. Patient denies chest pain no dyspnea. On admission labs showed leukocytosis of 19.2 K. INR is 1.2. Creatinine is slightly elevated at 1.3 which is close to baseline. Elevated troponin 0.04 and 0.04, however her troponin is chronically elevated 0.032 0.04. Urinalysis showed large leukocyte esterase. EKG showing ventricular pacemaker at 61. CT of the abdomen and pelvis showing generalized colonic diverticulosis with evidence of acute diverticulitis with moderate surrounding wall thickening. Reactive mild pelvic ascites. his or free air 06/10/2020 Patient is still complaining of from significant pain in her lower abdomen especially tenderness in the left lower quadrant area. However no more nausea vomiting, still have no bowel movement by passing gases. Hemodynamically stable and WBC is a trending down Creatinine is still elevated at 1.41. We will increase her IV normal saline fluids from 50 to 100 mL/h Discussed with surgery team, no need for surgical intervention Discussed with cardiology, her troponin elevation is chronic. Patient can call to general medical floor 06/11/2020 Patient has less pain in the left lower quadrant of the abdomen however still significant hurting. No nausea vomiting, still have no bowel movement because she still without food this morning, patient agrees to start liquid diet Leukocytosis is improving. Creatinine is trending down to 1.1 Continue with antibiotics of ceftriaxone and Flagyl as well as gentle hydration and we will lower to 75 mL/h. Also she is on Dilaudid for pain and Xarelto. I discussed the case with Dr. Casas today, no plan for surgical intervention 06/12: Patient complains of her abdomen being sore much worse and she has had in the past. She has passed a little bit of gas but no bowel movement. She is currently on clear liquid diet. No nausea or vomiting. She has been afebrile, pulse ox 96% on room air. WBC is down to 9.9, hemoglobin 11.1. Electrolytes and renal function normal. Patient is followed by GI and general surgery. No plan for surgical intervention at this time. 06/13: Patient has had 2 bowel movements, abdominal pain is slightly improved. CAT scan of the abdomen and pelvis with oral contrast only as ordered for today. IV fluids will be changed to saline with small dose of Lasix IV given. Patient will be resumed on Aldactone 25 mg daily. Patient does have [place] available for breakthrough pain. She is continued on ceftriaxone and Flagyl. She has been afebrile, heart rate 62, blood pressure 147/85, pulse ox 97% on room air. Repeat blood work revealed WBC of 12.6, hemoglobin 11.5. Electrolytes and renal function normal. Magnesium 1.8. Patient is tolerating a clear liquid diet. 06/14: Patient continues to have abdominal pain but in the upper region. She has decreased tenderness to the left lower quadrant. CAT scan of the abdomen and pelvis without contrast done yesterday revealed postsurgical changes involving the sigmoid colon with acute inflammatory changes in the sigmoid colon suggestive of acute diverticulitis or colitis. Underlying neoplastic process is not excluded. Small amount of free fluid within the right pelvis nonspecific. Bilateral lower lobe consolidation and small effusion. Chest x-ray from [facility] revealed left lower lobe infiltrate and small effusions. Correlate for mild central venous congestion or interstitial pneumonitis. Objective - Vital Signs Vital signs: Vital Signs Temp 98.3 F 06/14/20 14:00 Pulse 98 06/14/20 14:00 Resp 16 06/14/20 14:00 BP 144/79 06/14/20 14:00 Pulse Ox 93 L 06/14/20 01:23 Intake & Output 06/13/20 06/14/20 06/14/20 18:59 06:59 18:59 Intake Total 440 240 Output Total 100 Balance 440 140 Weight 81.4 kg Intake: Oral 240 240 Other 200 Output: Urine 100 Other: Voiding Method Toilet # Voids 1 # Bowel Movements 1 1 - Exam Review of systems CONSTITUTIONAL: Denies fever or chills. CARDIOVASCULAR: Denies chest pain, shortness of breath, orthopnea, PND or palpitations. RESPIRATORY: Denies cough. GASTROINTESTINAL: Complains of lower abdominal pain and constipation. Denies diarrhea, nausea or vomiting. MUSCULOSKELETAL: Denies myalgias. NEUROLOGIC: Denies numbness, tingling or weakness. ENDOCRINE: Denies fatigue, weight change, polydipsia or polyurina. GENITOURINARY: Denies burning, hematuria or urgency with micturation. HEMATOLOGIC: Denies history of anemia or bleeding. Physical examination GENERAL: The patient is alert and oriented x3, not in any acute distress. Well developed, well nourished. HEENT: Pupils are round and equally reacting to light. EOMI. No scleral icterus. No conjunctival pallor. Normocephalic, atraumatic. No pharyngeal erythema. No thyromegaly. CARDIOVASCULAR: S1 and S2 present. No murmurs, rubs, or gallops. PULMONARY: Chest is clear to auscultation, no wheezing or crackles. -ABDOMEN: Soft, LLQ tenderness, no rebound tenderness, nondistended, normoactive bowel sounds. No palpable organomegaly. MUSCULOSKELETAL: No joint swelling or deformity. EXTREMITIES: No cyanosis, clubbing, or pedal edema. NEUROLOGICAL: Gross neurological examination did not reveal any focal deficits. SKIN: No rashes. no petechiae. - Labs CBC & Chem 7: 06/14/20 05:41 06/13/20 07:15 Labs: Abnormal Lab Results - Last 24 Hours (Table) 06/14/20 Range/Units 05:41 WBC 13.3 H (3.8-10.6) k/uL RBC 3.66 L (3.80-5.40) m/uL Neutrophils # 11.2 H (1.3-7.7) k/uL Assessment and Plan Assessment: 1. Acute diverticulitis. Continue ceftriaxone 1 g IV piggyback daily, Flagyl 500 mg IV piggyback every 8 hours, consult with GI and general surgery appreciated. Discontinue IV fluids. Continue clear liquid diet. Continue Dilaudid or morphine for pain, and [place] one every 6 hours as needed for breakthrough pain. Repeat CAT scan of the abdomen and pelvis as above. 2. Chronic kidney disease, stage III. Monitor renal function and electrolytes. 3. Elevated troponin, chronic. Acute coronary syndrome ruled out. Cardiology consult appreciated. 4. Nonischemic cardiomyopathy status post AICD. Cardiology consult appreciated. Resume Aldactone 25 mg daily, Toprol-XL 200 mg daily, digoxin 125 g daily. 5. Chronic systolic heart failure, stable. Continue Entresto 25 mg/26 mg one twice daily. Resume Aldactone, Lasix 20 mg IV 1. 6. Chronic atrial fibrillation. Continue Xarelto 20 mg with supper daily. Resume Toprol-XL 200 mg daily and digoxin 125 g daily. 7. Hypertension. Hold Lasix, Toprol XL. Continue Entresto. 8. Dyslipidemia. Hold pravastatin, fenofibrate. 9. History of breast cancer. Hold Exemestane 25 mg daily 10. Hypothyroidism. Continue levothyroxine 75 g daily. 11. Chronic gout. Continue allopurinol 100 mg at bedtime. 12. DVT prophylaxis. Xarelto 20 mg daily. 13. GI prophylaxis. Protonix 40 mg IV daily. CODE STATUS: Full code
[2020-06-14] MEDS: allopurinoL 100 MG TAB PO SCH (20:20)
[2020-06-15] MEDS: metroNIDAZOLE-NS PMX 500 MG in SALINE 1 100ML.BAG IVPB SCH ×3 (03:38→19:57)
[2020-06-15] MEDS: HYDROcodone/APAP 5-325MG 1 EACH TAB PO PRN ×2 (04:19→19:54)
[2020-06-15] MEDS: IPRATROPIUM-ALBUTEROL 3 ML NEB INHALATION PRN ×5 (04:31→19:38)
[2020-06-15] MEDS: LEVOTHYROXINE 75 MCG TAB PO SCH (05:57)
[2020-06-15 06:25] LABS: Basophils % (A) 0 %; Eosinophils # (A) 0.2 k/uL (0-0.7); Eosinophils % (A) 2 %; HCT 33.5 % (34.0-46.0); Lymphocytes # (A) 0.9 k/uL (1.0-4.8); Lymphocytes % (A) 8 %; MCH 31.1 pg (25.0-35.0); MCHC 32.8 g/dL (31.0-37.0); MCV 94.6 fL (80.0-100.0); Mean Platelet Volume 8.3; Monocytes # (A) 0.8 k/uL (0-1.0); Monocytes % (A) 7 %; Neutrophils # (A) 9.1 k/uL (1.3-7.7); Neutrophils % (A) 82 %; Platelet Count 207 k/uL (150-450); RBC 3.54 m/uL (3.80-5.40); RDW 12.9 % (11.5-15.5); WBC 11.2 k/uL (3.8-10.6)
[2020-06-15] MEDS ORDERED: PANTOPRAZOLE 40 MG TABLET PO SCH (07:30)
[2020-06-15] MEDS: SPIRONOLACTONE 25 MG TAB PO SCH (09:14)
[2020-06-15] MEDS: DIGOXIN 125 MCG TAB PO SCH (09:14)
[2020-06-15] MEDS: SACUBITRIL/VALSARTAN 24 MG-26 MG TABLET PO SCH ×2 (09:14→19:54)
[2020-06-15] MEDS: METOPROLOL SUCCINATE (ER) 100 MG TAB.ER.24H PO SCH (09:14)
--- NOTE | 2020-06-15 12:28 | P.PN ---
Subjective Progress Note Date: 06/15/20 CHIEF COMPLAINT: Abdominal pain HISTORY OF PRESENT ILLNESS: Patient is being followed for an acute divert iculitis. Patient is reporting improvement in her lower abdominal pain. She continues to have epigastric discomfort but not as severe. She denies any nausea or vomiting. She is having bowel movements. Afebrile. WBC has come down from 13.3-11.2. PHYSICAL EXAM: VITAL SIGNS: Reviewed. GENERAL: Well-developed in no acute distress. HEENT: No sclera icterus. Extraocular movements grossly intact. Moist buccal mucosa. Head is atraumatic, normocephalic. ABDOMEN: Soft. Nondistended. Tenderness with palpation of the epigastric area NEUROLOGIC: Alert and oriented. Cranial nerves II through XII grossly intact. ASSESSMENT: 1. Acute diverticulitis of the proximal sigmoid colon 2. Prior history of bowel resection for diverticulitis PLAN: -Advance diet to full liquids -Continue IV antibiotics, Rocephin and Flagyl -Continue pain medication as needed -Continue supportive care Physician Inbound Sales Representative note has been reviewed by physician. Signing provider agrees with the documented findings, assessment, and plan of care. Objective - Vital Signs Vital signs: Vital Signs Temp 97.5 F L 06/15/20 07:42 Pulse 60 06/15/20 12:07 Resp 16 06/15/20 08:00 BP 131/83 06/15/20 07:42 Pulse Ox 95 06/15/20 07:42 Intake & Output 06/14/20 06/15/20 06/15/20 18:59 06:59 18:59 Intake Total 240 240 Output Total 1 100 Balance 239 140 Weight 81.4 kg Intake: Oral 240 240 Output: Urine 1 100 Other: Voiding Method Toilet # Voids 1 1 - Labs CBC & Chem 7: 06/15/20 05:50 06/13/20 07:15 Labs: Abnormal Lab Results - Last 24 Hours (Table) 06/15/20 Range/Units 05:50 WBC 11.2 H (3.8-10.6) k/uL RBC 3.54 L (3.80-5.40) m/uL Hgb 11.0 L (11.4-16.0) gm/dL Hct 33.5 L (34.0-46.0) % Neutrophils # 9.1 H (1.3-7.7) k/uL Lymphocytes # 0.9 L (1.0-4.8) k/uL
--- NOTE | 2020-06-15 13:30 | P.PN ---
Subjective Progress Note Date: 06/15/20 Principal diagnosis: Diverticulitis This is a 79-year-old female who was admitted to the hospital with acute onset of abdominal pain with a prior history of diverticulitis with prior bowel resection. She had a CT of the abdomen and pelvis which did show active diverticulitis. She is on IV Rocephin and Flagyl. The patient states her for abdominal pain is improved, still has some mild tenderness in her upper abdomen and epigastric area. She states that she woke up approximately 2 AM with a sharp piercing pain in her epigastric region. She states she has some shortness of breath. SHe had a repeat CT of the abdomen which showed post surgical change involving the sigmoid colon with acute inflammatory changes in the sigmoid colon suggestive of acute diverticulitis or colitis. Underlying neoplastic process not excluded. Follow resolution recommended. Findings are similar to recent exam on 06/09/2020. There remains a small amount of free fluid within the pelvis, there is bilateral lower lobe consolidation small effusion which appears new from prior exam. She also underwent a chest x-ray this morning which showed a left lower lobe infiltrate and small effusion. Correlate for mild central venous congestion or interstitial pneumonitis. WBC improved today, 11.2. She has been afebrile. She is stating that she is having loose bowels, however denies any blood in her stool. Objective - Vital Signs Vital signs: Vital Signs Temp 97.5 F L 06/15/20 07:42 Pulse 60 06/15/20 12:07 Resp 16 06/15/20 08:00 BP 131/83 06/15/20 07:42 Pulse Ox 95 06/15/20 07:42 Intake & Output 06/14/20 06/15/20 06/15/20 18:59 06:59 18:59 Intake Total 240 240 Output Total 1 100 Balance 239 140 Weight 81.4 kg Intake: Oral 240 240 Output: Urine 1 100 Other: Voiding Method Toilet # Voids 1 1 - Exam General appearance: The patient is alert, oriented, in no acute distress. HET: Head is normocephalic and atraumatic. Conjunctiva pink. Sclera anicteric. Neck: Supple without lymphadenopathy. Abdomen: Soft, no lower abdominal tenderness, mild tenderness to palpation in ep igastric region, nondistended with bowel sounds. No guarding or rigidity. Extremities: Normal skin color and turgor. No pedal edema Neurological: No focal deficits. Alert and oriented 3. - Labs CBC & Chem 7: 06/15/20 05:50 06/13/20 07:15 Labs: Abnormal Lab Results - Last 24 Hours (Table) 06/15/20 Range/Units 05:50 WBC 11.2 H (3.8-10.6) k/uL RBC 3.54 L (3.80-5.40) m/uL Hgb 11.0 L (11.4-16.0) gm/dL Hct 33.5 L (34.0-46.0) % Neutrophils # 9.1 H (1.3-7.7) k/uL Lymphocytes # 0.9 L (1.0-4.8) k/uL Assessment and Plan (1) Diverticulitis Narrative/Plan: 79-year-old female with multiple medical comorbidities including for episodes of diverticulitis in the past and prior partial colectomy with reanastomosis for treatment of diverticula who presents to the hospital with abdominal pain. Found to have leukocytosis of 19.[address] findings consistent with uncomplicated diverticulitis. Repeat computed tomography scan of the abdomen showed post surgical change involving the sigmoid colon with acute in flammatory changes in the sigmoid colon suggestive of acute diverticulitis or colitis. Underlying neoplastic process not excluded. Follow resolution recommended. Findings are similar to recent exam on 06/09/2020. The patient remains afebrile, WBC is trending down. Continue with IV Rocephin and Flagyl. Current Visit: Yes Status: Acute Code(s): K57.92 - DVTRCLI OF INTEST, PART UNSP, W/O PERF OR ABSCESS W/O BLEED SNOMED Code(s): 978605615 (2) Abdominal pain Current Visit: Yes Status: Acute Code(s): R10.9 - UNSPECIFIED ABDOMINAL PAIN SNOMED Code(s): 16576235 (3) Leukocytosis Current Visit: Yes Status: Acute Code(s): D72.829 - ELEVATED WHITE BLOOD CELL COUNT, UNSPECIFIED SNOMED Code(s): 531182923 Plan: Supportive care Advance to regular diet Continue Ceftriaxone and Flagyl therapy Continue to monitor CBC, BMP, LFTs Continue pain control No plan for endoscopic evaluation at this time Surgical service consulted to see the patient with no plans for surgical intervention Thank you for allowing us to participate in the care of the patient, we will continue to follow Dr. Cheryl Murillo I agree with the dictator's note, documented as a scribe by María Elena Melissa.
[2020-06-15] MEDS: RIVAROXABAN 20 MG TAB PO SCH (17:08)
[2020-06-15] MEDS: PANTOPRAZOLE 40 MG TABLET PO SCH (17:08)
--- NOTE | 2020-06-15 18:07 | P.PN ---
Subjective Progress Note Date: 06/15/20 this is a pleasant 79 years old female with past medical history of memory impairment, hypothyroidism, hiatal hernia, history of diverticulitis, atrial fibrillation on Xarelto and coronary artery disease status post cardiac ablation and AICD and pacemaker. Patient presents because of generalized abdominal pain with left lower quadrant tenderness for about one week associated with constipation for the last 4 days and nausea but no vomiting. Patient denies chest pain no dyspnea. On admission labs showed leukocytosis of 19.2 K. INR is 1.2. Creatinine is slightly elevated at 1.3 which is close to baseline. Elevated troponin 0.04 and 0.04, however her troponin is chronically elevated 0.032 0.04. Urinalysis showed large leukocyte esterase. EKG showing ventricular pacemaker at 61. CT of the abdomen and pelvis showing generalized colonic diverticulosis with evidence of acute diverticulitis with moderate surrounding wall thickening. Reactive mild pelvic ascites. his or free air 06/10/2020 Patient is still complaining of from significant pain in her lower abdomen especially tenderness in the left lower quadrant area. However no more nausea vomiting, still have no bowel movement by passing gases. Hemodynamically stable and WBC is a trending down Creatinine is still elevated at 1.41. We will increase her IV normal saline fluids from 50 to 100 mL/h Discussed with surgery team, no need for surgical intervention Discussed with cardiology, her troponin elevation is chronic. Patient can call to general medical floor 06/11/2020 Patient has less pain in the left lower quadrant of the abdomen however still significant hurting. No nausea vomiting, still have no bowel movement because she still without food this morning, patient agrees to start liquid diet Leukocytosis is improving. Creatinine is trending down to 1.1 Continue with antibiotics of ceftriaxone and Flagyl as well as gentle hydration and we will lower to 75 mL/h. Also she is on Dilaudid for pain and Xarelto. I discussed the case with Dr. Casas today, no plan for surgical intervention 06/12: Patient complains of her abdomen being sore much worse and she has had in the past. She has passed a little bit of gas but no bowel movement. She is currently on clear liquid diet. No nausea or vomiting. She has been afebrile, pulse ox 96% on room air. WBC is down to 9.9, hemoglobin 11.1. Electrolytes and renal function normal. Patient is followed by GI and general surgery. No plan for surgical intervention at this time. 06/13: Patient has had 2 bowel movements, abdominal pain is slightly improved. CAT scan of the abdomen and pelvis with oral contrast only as ordered for today. IV fluids will be changed to saline with small dose of Lasix IV given. Patient will be resumed on Aldactone 25 mg daily. Patient does have [place] available for breakthrough pain. She is continued on ceftriaxone and Flagyl. She has been afebrile, heart rate 62, blood pressure 147/85, pulse ox 97% on room air. Repeat blood work revealed WBC of 12.6, hemoglobin 11.5. Electrolytes and renal function normal. Magnesium 1.8. Patient is tolerating a clear liquid diet. 06/14: Patient continues to have abdominal pain but in the upper region. She has decreased tenderness to the left lower quadrant. CAT scan of the abdomen and pelvis without contrast done yesterday revealed postsurgical changes involving the sigmoid colon with acute inflammatory changes in the sigmoid colon suggestive of acute diverticulitis or colitis. Underlying neoplastic process is not excluded. Small amount of free fluid within the right pelvis nonspecific. Bilateral lower lobe consolidation and small effusion. Chest x-ray from [facility] revealed left lower lobe infiltrate and small effusions. Correlate for mild central venous congestion or interstitial pneumonitis. 06/15: Patient states she is having loose stools. She denies having any blood in her stools. She has been afebrile. WBC 11.2. She has been continued on ceftriaxone and Flagyl. Plan is to continue conservative management. Diet advance to regular before dinner. Objective - Vital Signs Vital signs: Vital Signs Temp 97.3 F L 06/15/20 14:00 Pulse 62 06/15/20 15:28 Resp 18 06/15/20 14:00 BP 138/83 06/15/20 14:00 Pulse Ox 96 06/15/20 14:00 Intake & Output 06/14/20 06/15/20 06/15/20 18:59 06:59 18:59 Intake Total 240 240 Output Total 1 100 Balance 239 140 Weight 81.4 kg Intake: Oral 240 240 Output: Urine 1 100 Other: Voiding Method Toilet # Voids 1 1 - Exam Review of systems CONSTITUTIONAL: Denies fever or chills. CARDIOVASCULAR: Denies chest pain, shortness of breath, orthopnea, PND or palpitations. RESPIRATORY: Denies cough. GASTROINTESTINAL: Complains of lower abdominal pain and constipation. Denies diarrhea, nausea or vomiting. MUSCULOSKELETAL: Denies myalgias. NEUROLOGIC: Denies numbness, tingling or weakness. ENDOCRINE: Denies fatigue, weight change, polydipsia or polyurina. GENITOURINARY: Denies burning, hematuria or urgency with micturation. HEMATOLOGIC: Denies history of anemia or bleeding. Physical examination GENERAL: The patient is alert and oriented x3, not in any acute distress. Well developed, well nourished. HEENT: Pupils are round and equally reacting to light. EOMI. No scleral icterus. No conjunctival pallor. Normocephalic, atraumatic. No pharyngeal erythema. No thyromegaly. CARDIOVASCULAR: S1 and S2 present. No murmurs, rubs, or gallops. PULMONARY: Chest is clear to auscultation, no wheezing or crackles. -ABDOMEN: Soft, LLQ tenderness, no rebound tenderness, nondistended, normoactive bowel sounds. No palpable organomegaly. MUSCULOSKELETAL: No joint swelling or deformity. EXTREMITIES: No cyanosis, clubbing, or pedal edema. NEUROLOGICAL: Gross neurological examination did not reveal any focal deficits. SKIN: No rashes. no petechiae. - Labs CBC & Chem 7: 06/15/20 05:50 06/13/20 07:15 Labs: Abnormal Lab Results - Last 24 Hours (Table) 06/15/20 Range/Units 05:50 WBC 11.2 H (3.8-10.6) k/uL RBC 3.54 L (3.80-5.40) m/uL Hgb 11.0 L (11.4-16.0) gm/dL Hct 33.5 L (34.0-46.0) % Neutrophils # 9.1 H (1.3-7.7) k/uL Lymphocytes # 0.9 L (1.0-4.8) k/uL Assessment and Plan Assessment: 1. Acute diverticulitis. Continue ceftriaxone 1 g IV piggyback daily, Flagyl 500 mg IV piggyback every 8 hours, consult with GI and general surgery appreciated. Discontinue IV fluids. Diet advanced to regular before dinner. Continue Dilaudid or morphine for pain, and [place] one every 6 hours as needed for breakthrough pain. Repeat CAT scan of the abdomen and pelvis as above. 2. Chronic kidney disease, stage III. Monitor renal function and electrolytes. 3. Elevated troponin, chronic. Acute coronary syndrome ruled out. Cardiology consult appreciated. 4. Nonischemic cardiomyopathy status post AICD. Cardiology consult appreciated. Resume Aldactone 25 mg daily, Toprol-XL 200 mg daily, digoxin 125 g daily. 5. Chronic systolic heart failure, stable. Continue Entresto 25 mg/26 mg one twice daily. Resume Aldactone, Lasix 20 mg IV 1. 6. Chronic atrial fibrillation. Continue Xarelto 20 mg with supper daily. Resume Toprol-XL 200 mg daily and digoxin 125 g daily. 7. Hypertension. Hold Lasix, Toprol XL. Continue Entresto. 8. Dyslipidemia. Hold pravastatin, fenofibrate. 9. History of breast cancer. Hold Exemestane 25 mg daily 10. Hypothyroidism. Continue levothyroxine 75 g daily. 11. Chronic gout. Continue allopurinol 100 mg at bedtime. 12. DVT prophylaxis. Xarelto 20 mg daily. 13. GI prophylaxis. Protonix 40 mg IV daily. CODE STATUS: Full code
[2020-06-15] MEDS: allopurinoL 100 MG TAB PO SCH (19:54)
[2020-06-16] MEDS: metroNIDAZOLE-NS PMX 500 MG in SALINE 1 100ML.BAG IVPB SCH ×2 (04:50→13:24)
[2020-06-16] MEDS: LEVOTHYROXINE 75 MCG TAB PO SCH (05:59)
[2020-06-16 06:28] LABS: HCT 33.3 % (34.0-46.0); HGB 11.1 gm/dL (11.4-16.0); MCH 31.4 pg (25.0-35.0); MCHC 33.4 g/dL (31.0-37.0); Mean Platelet Volume 8.2; Platelet Count 250 k/uL (150-450); RBC 3.54 m/uL (3.80-5.40); RDW 13.2 % (11.5-15.5); WBC 12.6 k/uL (3.8-10.6)
[2020-06-16] MEDS: PANTOPRAZOLE 40 MG TABLET PO SCH (08:48)
[2020-06-16] MEDS: SACUBITRIL/VALSARTAN 24 MG-26 MG TABLET PO SCH (08:48)
[2020-06-16] MEDS: DIGOXIN 125 MCG TAB PO SCH (08:49)
[2020-06-16] MEDS: SPIRONOLACTONE 25 MG TAB PO SCH (08:49)
[2020-06-16] MEDS: METOPROLOL SUCCINATE (ER) 100 MG TAB.ER.24H PO SCH (08:49)
[2020-06-16 09:27] LABS: African American GFR (CKD) 62.9 (60.0-200.0); Albumin 3.8 g/dL (3.80-4.90); Albumin/Globulin Ratio 1.65 (1.60-3.17); Anion Gap 9.7 mmol/L (4.00-12.00); Calcium 9.4 mg/dL (8.7-10.3); Carbon Dioxide 24.3 mmol/L (21.6-31.8); Globulin 2.3 g/dL (1.6-3.3); Non-African American GFR(CKD) 54.3 (60.0-200.0); Potassium 4.1 mmol/L (3.5-5.5); Total Bilirubin 0.5 mg/dL (0.3-1.2); Total Protein 6.1 g/dL (6.2-8.2)
[2020-06-16] MEDS: IPRATROPIUM-ALBUTEROL 3 ML NEB INHALATION PRN (11:11)
--- NOTE | 2020-06-16 13:27 | P.PN ---
Subjective Progress Note Date: 06/16/20 CHIEF COMPLAINT: Abdominal pain HISTORY OF PRESENT ILLNESS: Patient is being followed for an acute divert iculitis. Patient reports improvement in her abdominal pain. She denies any nausea or vomiting. She is having diarrhea. White count did go up from 11.2- 12.6. She is tolerating regular diet. Afebrile. PHYSICAL EXAM: VITAL SIGNS: Reviewed. GENERAL: Well-developed in no acute distress. HEENT: No sclera icterus. Extraocular movements grossly intact. Moist buccal mucosa. Head is atraumatic, normocephalic. ABDOMEN: Soft. Nondistended. Nontender NEUROLOGIC: Alert and oriented. Cranial nerves II through XII grossly intact. ASSESSMENT: 1. Acute diverticulitis of the proximal sigmoid colon 2. Prior history of bowel resection for diverticulitis PLAN: -Patient is stable for discharge from surgical standpoint -Recommend 10 days of Ceftin and Flagyl for diverticulitis treatment Physician Sprayer Operator note has been reviewed by physician. Signing provider agrees with the documented findings, assessment, and plan of care. Objective - Vital Signs Vital signs: Vital Signs Temp 98 F 06/16/20 08:00 Pulse 65 06/16/20 11:20 Resp 16 06/16/20 08:00 BP 138/70 06/16/20 08:00 Pulse Ox 95 06/16/20 01:30 Intake & Output 06/15/20 06/16/20 06/16/20 18:59 06:59 18:59 Intake Total 700 100 Balance 700 100 Weight 81.4 kg Intake: Intake, IV Titration 100 Amount metroNIDAZOLE-NS PMX 500 100 mg In Saline 1 100ml.bag @ 100 mls/hr IVPB Q8H [facility] Rx#:[id number] Oral 300 Other 400 Other: Voiding Method Toilet # Voids 1 # Bowel Movements 3 2 - Labs CBC & Chem 7: 06/16/20 05:23 06/16/20 05:23 Labs: Abnormal Lab Results - Last 24 Hours (Table) 06/16/20 06/16/20 Range/Units 05:23 05:23 WBC 12.6 H (3.8-10.6) k/uL RBC 3.54 L (3.80-5.40) m/uL Hgb 11.1 L (11.4-16.0) gm/dL Hct 33.3 L (34.0-46.0) % Est GFR (CKD-EPI)NonAf 54.3 L (60.0-200.0) BUN/Creatinine Ratio 10.00 L (12.00-20.00) Ratio Total Protein 6.1 L (6.2-8.2) g/dL
--- NOTE | 2020-06-16 13:39 | P.PN ---
Subjective Progress Note Date: 06/16/20 Principal diagnosis: Diverticulitis The patient is seen and examined at the bedside. She states she is feeling much better today. She denies any abdominal pain. She states that the epigastric and upper abdominal pain has subsided. She is tolerating a regular diet. She has been afebrile. She states she will be discharged home today. Objective - Vital Signs Vital signs: Vital Signs Temp 98 F 06/16/20 08:00 Pulse 65 06/16/20 11:20 Resp 16 06/16/20 08:00 BP 138/70 06/16/20 08:00 Pulse Ox 95 06/16/20 01:30 Intake & Output 06/15/20 06/16/20 06/16/20 18:59 06:59 18:59 Intake Total 700 100 Balance 700 100 Weight 81.4 kg Intake: Intake, IV Titration 100 Amount metroNIDAZOLE-NS PMX 500 100 mg In Saline 1 100ml.bag @ 100 mls/hr IVPB Q8H REYNA Rx#:[id number] Oral 300 Other 400 Other: Voiding Method Toilet # Voids 1 # Bowel Movements 3 2 - Exam General appearance: The patient is alert, oriented, in no acute distress. HET: Head is normocephalic and atraumatic. Conjunctiva pink. Sclera anicteric. Neck: Supple without lymphadenopathy. Abdomen: Soft, nontender, nondistended with bowel sounds. No guarding or rigidity. Extremities: Normal skin color and turgor. No pedal edema Neurological: No focal deficits. Alert and oriented 3. - Labs CBC & Chem 7: 06/16/20 05:23 06/16/20 05:23 Labs: Abnormal Lab Results - Last 24 Hours (Table) 06/16/20 06/16/20 Range/Units 05:23 05:23 WBC 12.6 H (3.8-10.6) k/uL RBC 3.54 L (3.80-5.40) m/uL Hgb 11.1 L (11.4-16.0) gm/dL Hct 33.3 L (34.0-46.0) % Est GFR (CKD-EPI)NonAf 54.3 L (60.0-200.0) BUN/Creatinine Ratio 10.00 L (12.00-20.00) Ratio Total Protein 6.1 L (6.2-8.2) g/dL Assessment and Plan (1) Diverticulitis Narrative/Plan: 79-year-old female with multiple medical comorbidities including for episodes of diverticulitis in the past and prior partial colectomy with reanastomosis for treatment of diverticula who presents to the hospital with abdominal pain. Found to have leukocytosis of 19.[address] findings consistent with uncomplicated diverticulitis. Repeat computed tomography scan of the abdomen showed post surgical change involving the sigmoid colon with acute i nflammatory changes in the sigmoid colon suggestive of acute diverticulitis or colitis. Underlying neoplastic process not excluded. Follow resolution recommended. Findings are similar to recent exam on 06/09/2020. The patient remains afebrile. Continue with IV Rocephin and Flagyl. Current Visit: Yes Status: Acute Code(s): K57.92 - DVTRCLI OF INTEST, PART UNSP, W/O PERF OR ABSCESS W/O BLEED SNOMED Code(s): 552068690 (2) Abdominal pain Current Visit: Yes Status: Acute Code(s): R10.9 - UNSPECIFIED ABDOMINAL PAIN SNOMED Code(s): 33110993 (3) Leukocytosis Current Visit: Yes Status: Acute Code(s): D72.829 - ELEVATED WHITE BLOOD CELL COUNT, UNSPECIFIED SNOMED Code(s): 841981490 Plan: Supportive care Advance to regular diet Continue Ceftriaxone and Flagyl therapy Continue to monitor CBC Continue pain control prn No plan for endoscopic evaluation at this time Surgical service consulted to see the patient with no plans for surgical intervention Thank you for allowing us to participate in the care of the patient, we will be on stand by if needed further. Dr. Viramontes I agree with the dictator's note, documented as a scribe by María Elena Melissa.
[2020-06-16] MEDS ORDERED: FUROSEMIDE 10 MG/ML 4 ML VIAL IV STA (14:36)
--- NOTE | 2020-06-16 15:27 | P.DS ---
Providers Date of admission: 06/09/20 12:53 Expected date of discharge: 06/16/20 Attending physician: Kostas Kunz Consults: 06/09/20 12:54 Consult Physician Urgent Consulting Provider: [facility] Consult Reason/Comments: elevated trop Do you want consulting provider notified?: Yes 06/09/20 12:55 Consult Physician Urgent Consulting Provider: Kyrie Casas Consult Reason/Comments: acute diverticulitis Do you want consulting provider notified?: Yes 06/09/20 12:56 Consult Physician Urgent Consulting Provider: Ryan Viramontes Consult Reason/Comments: acute diverticulitis Do you want consulting provider notified?: Yes Primary care physician: Kostas Kunz Hospital Course: this is a pleasant 79 years old female with past medical history of memory impairment, hypothyroidism, hiatal hernia, history of diverticulitis, atrial fibrillation on Xarelto and coronary artery disease status post cardiac ablation and AICD and pacemaker. Patient presents because of generalized abdominal pain with left lower quadrant tenderness for about one week associated with constipation for the last 4 days and nausea but no vomiting. Patient denies chest pain no dyspnea. On admission labs showed leukocytosis of 19.2 K. INR is 1.2. Creatinine is slightly elevated at 1.3 which is close to baseline. Elevated troponin 0.04 and 0.04, however her troponin is chronically elevated 0.032 0.04. Urinalysis showed large leukocyte esterase. EKG showing ventricular pacemaker at 61. CT of the abdomen and pelvis showing generalized colonic diverticulosis with evidence of acute diverticulitis with moderate surrounding wall thickening. Reactive mild pelvic ascites. his or free air 06/10/2020 Patient is still complaining of from significant pain in her lower abdomen especially tenderness in the left lower quadrant area. However no more nausea vomiting, still have no bowel movement by passing gases. Hemodynamically stable and WBC is a trending down Creatinine is still elevated at 1.41. We will increase her IV normal saline fluids from 50 to 100 mL/h Discussed with surgery team, no need for surgical intervention Discussed with cardiology, her troponin elevation is chronic. Patient can call to general medical floor 06/11/2020 Patient has less pain in the left lower quadrant of the abdomen however still significant hurting. No nausea vomiting, still have no bowel movement because she still without food this morning, patient agrees to start liquid diet Leukocytosis is improving. Creatinine is trending down to 1.1 Continue with antibiotics of ceftriaxone and Flagyl as well as gentle hydration and we will lower to 75 mL/h. Also she is on Dilaudid for pain and Xarelto. I discussed the case with Dr. Casas today, no plan for surgical intervention 06/12: Patient complains of her abdomen being sore much worse and she has had in the past. She has passed a little bit of gas but no bowel movement. She is currently on clear liquid diet. No nausea or vomiting. She has been afebrile, pulse ox 96% on room air. WBC is down to 9.9, hemoglobin 11.1. Electrolytes and renal function normal. Patient is followed by GI and general surgery. No plan for surgical intervention at this time. 06/13: Patient has had 2 bowel movements, abdominal pain is slightly improved. CAT scan of the abdomen and pelvis with oral contrast only as ordered for today. IV fluids will be changed to saline with small dose of Lasix IV given. Patient will be resumed on Aldactone 25 mg daily. Patient does have Protem available for breakthrough pain. She is continued on ceftriaxone and Flagyl. She has been afebrile, heart rate 62, blood pressure 147/85, pulse ox 97% on room air. Repeat blood work revealed WBC of 12.6, hemoglobin 11.5. Electrolytes and renal function normal. Magnesium 1.8. Patient is tolerating a clear liquid diet. 06/14: Patient continues to have abdominal pain but in the upper region. She has decreased tenderness to the left lower quadrant. CAT scan of the abdomen and pelvis without contrast done yesterday revealed postsurgical changes involving the sigmoid colon with acute inflammatory changes in the sigmoid colon suggestive of acute diverticulitis or colitis. Underlying neoplastic process is not excluded. Small amount of free fluid within the right pelvis nonspecific. Bilateral lower lobe consolidation and small effusion. Chest x-ray from yesterday revealed left lower lobe infiltrate and small effusions. Correlate for mild central venous congestion or interstitial pneumonitis. 06/15: Patient states she is having loose stools. She denies having any blood in her stools. She has been afebrile. WBC 11.2. She has been continued on ceftriaxone and Flagyl. Plan is to continue conservative management. Diet advance to regular before dinner. Discharge diagnoses: 1. Acute diverticulitis. 2. Chronic kidney disease, stage III. 3. Elevated troponin, chronic. 4. Nonischemic cardiomyopathy status post AICD. 5. Chronic systolic heart failure, stable. 6. Chronic atrial fibrillation. 7. Hypertension. 8. Dyslipidemia. 9. History of breast cancer. 10. Hypothyroidism. 11. Chronic gout Patient Condition at Discharge: Stable Plan - Discharge Summary Discharge Rx Participant: No New Discharge Prescriptions: New Cefuroxime Axetil [Ceftin] 500 mg PO BID 10 Days #20 tab metroNIDAZOLE [Flagyl] 500 mg PO Q8HR #30 tab No Action Rivaroxaban [Xarelto] 20 mg PO HS Furosemide [Lasix] 40 mg PO DAILY Digoxin [Lanoxin] 125 mcg PO DAILY Spironolactone [Aldactone] 25 mg PO DAILY Ubidecarenone [Coq-10] 100 mg PO HS Levothyroxine Sodium [Synthroid] 75 mcg PO DAILY Sacubitril/Valsartan [Entresto 24 mg-26 mg Tablet] 1 tab PO BID Potassium Gluconate 99 mg PO HS Allopurinol [Zyloprim] 100 mg PO HS Fenofibrate 54 mg PO DAILY Metoprolol Succinate [Toprol XL] 200 mg PO DAILY Exemestane [Aromasin] 25 mg PO DAILY Atorvastatin [Lipitor] 20 mg PO DAILY Magnesium Oxide [Peña] 500 mg PO HS Discharge Medication List Digoxin [Lanoxin] 125 mcg PO DAILY 11/30/13 [History] Furosemide [Lasix] 40 mg PO DAILY 11/30/13 [History] Rivaroxaban [Xarelto] 20 mg PO HS 11/30/13 [History] Spironolactone [Aldactone] 25 mg PO DAILY 11/30/13 [History] Ubidecarenone [Coq-10] 100 mg PO HS 01/20/14 [History] Levothyroxine Sodium [Synthroid] 75 mcg PO DAILY 10/20/17 [History] Potassium Gluconate 99 mg PO HS 01/19/18 [History] Sacubitril/Valsartan [Entresto 24 mg-26 mg Tablet] 1 tab PO BID 01/19/18 [History] Allopurinol [Zyloprim] 100 mg PO HS 01/27/20 [History] Fenofibrate 54 mg PO DAILY 03/28/20 [History] Atorvastatin [Lipitor] 20 mg PO DAILY 06/09/20 [History] Exemestane [Aromasin] 25 mg PO DAILY 06/09/20 [History] Magnesium Oxide [Peña] 500 mg PO HS 06/09/20 [History] Metoprolol Succinate [Toprol XL] 200 mg PO DAILY 06/09/20 [History] Cefuroxime Axetil [Ceftin] 500 mg PO BID 10 Days #20 tab 06/16/20 [Rx] metroNIDAZOLE [Flagyl] 500 mg PO Q8HR #30 tab 06/16/20 [Rx] Follow up Appointment(s)/Referral(s): Donny Mireles MD [STAFF PHYSICIAN] - 2 Weeks Kostas Kunz MD [Primary Care Provider] - 1-2 days Kyrie Casas MD [STAFF PHYSICIAN] - 10 Days
[2020-06-16] MEDS ORDERED: metroNIDAZOLE 500 MG TAB PO SCH (16:00)
[2020-06-16 17:33] VITALS: BP 130/72; PULSE 67; RESP 17; TEMP 98.2
[2020-06-17] MEDS ORDERED: FUROSEMIDE 40 MG TAB PO SCH (09:00)
== END 2020-06-16 16:24 | disposition home or self-care (01) | DRG 392 ==
LOC: EC 10:12 → 3SCARD 12:53 → 5NMEDONC 06-10 23:33
PROVIDERS: ADMIT Internal Medicine; ATTEND Internal Medicine
DX: K57.32 Diverticulitis of large intestine without perforation or abscess without bleeding (principal); I42.8 Other cardiomyopathies; I13.0 Hypertensive heart and chronic kidney disease with heart failure and stage 1 through stage 4 chronic kidney disease, or unspecified chronic kidney disease; I50.22 Chronic systolic (congestive) heart failure; R18.8 Other ascites; I48.19 Other persistent atrial fibrillation; N17.9 Acute kidney failure, unspecified; I27.20 Pulmonary hypertension, unspecified; N18.30 Chronic kidney disease, stage 3 unspecified; E78.5 Hyperlipidemia, unspecified; K44.9 Diaphragmatic hernia without obstruction or gangrene; I25.10 Atherosclerotic heart disease of native coronary artery without angina pectoris; E03.9 Hypothyroidism, unspecified; M1A.9XX0 Chronic gout, unspecified, without tophus (tophi); K59.00 Constipation, unspecified; M25.512 Pain in left shoulder; M25.511 Pain in right shoulder; I25.2 Old myocardial infarction; Z79.811 Long term (current) use of aromatase inhibitors; Z79.890 Hormone replacement therapy; Z79.01 Long term (current) use of anticoagulants; Z79.899 Other long term (current) drug therapy; Z95.810 Presence of automatic (implantable) cardiac defibrillator; Z85.3 Personal history of malignant neoplasm of breast; Z90.10 Acquired absence of unspecified breast and nipple; Z90.49 Acquired absence of other specified parts of digestive tract; Z90.89 Acquired absence of other organs; Z87.19 Personal history of other diseases of the digestive system; Z87.891 Personal history of nicotine dependence; Z87.39 Personal history of other diseases of the musculoskeletal system and connective tissue; Z85.828 Personal history of other malignant neoplasm of skin; Z90.711 Acquired absence of uterus with remaining cervical stump; Z98.890 Other specified postprocedural states; Z88.6 Allergy status to analgesic agent; Z88.1 Allergy status to other antibiotic agents; Z80.0 Family history of malignant neoplasm of digestive organs; Z82.3 Family history of stroke; Z83.2 Family history of diseases of the blood and blood-forming organs and certain disorders involving the immune mechanism; Z80.8 Family history of malignant neoplasm of other organs or systems; Z82.49 Family history of ischemic heart disease and other diseases of the circulatory system
CPT/HCPCS: 36415; 71045; 74176; 80048; 80053; 81001; 83605; 83690; 83735; 83880; 84484; 85025; 85027; 85610; 85730; 87324; 93005; 94640; 96365; 96375; 99285

== ENCOUNTER → 2020-07-12 | Outpatient (CLI) | payer MEDICARE ==
[2020-07-12 16:00] LABS: African American GFR (CKD) 38.5 (60.0-200.0); Albumin 4.7 g/dL (3.80-4.90); Albumin/Globulin Ratio 1.81 (1.60-3.17); Anion Gap 13.8 mmol/L (4.00-12.00); BUN/Creat Ratio 23.33 Ratio (12.00-20.00); Calcium 10.4 mg/dL (8.7-10.3); Carbon Dioxide 27.2 mmol/L (21.6-31.8); Globulin 2.6 g/dL (1.6-3.3); Non-African American GFR(CKD) 33.3 (60.0-200.0); Potassium 4.4 mmol/L (3.5-5.5); Total Bilirubin 0.7 mg/dL (0.3-1.2); Total Protein 7.3 g/dL (6.2-8.2)
[2020-07-12 20:14] LABS: Digoxin 2.2 ng/mL (0.8-2.0)
== END | disposition home or self-care (01) ==
LOC: LABWHC1 08:02
PROVIDERS: ATTEND Internal Medicine Clinical Cardiac Electrophysiology
DX: I44.7 Left bundle-branch block, unspecified (principal); N18.32 Chronic kidney disease, stage 3b; I50.22 Chronic systolic (congestive) heart failure; I48.19 Other persistent atrial fibrillation
CPT/HCPCS: 36415; 80053; 80162; 84443

== ENCOUNTER → 2020-08-25 | Outpatient (CLI) | payer MEDICARE ==
[2020-08-25 09:12] VITALS: BP 98/64; PULSE 61; RESP 18; TEMP 97.9
--- NOTE | 2020-08-25 09:58 | P.PN ---
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 She was on a blood thinner and this was stopped. The patient had a mammogram done on 12-14-18. This revealed a 7 mm microlobulated mass in the upper outer quadrant in the right breast. Subsequently an ultrasound was performed and the ultrasound confirmed this area. She underwent ultrasound-guided core biopsy of the right breast on 7118. In addition to the 7 mm mass at the 10 o'clock position of the right breast there were 2 lesions 1 at 4 mm and 1-2 mm seen 7 mm apart from the index mass. The index mass was sampled and this was positive for invasive ductal carcinoma grade 1. This is ER/CT positive and HER-2 2 negative. She underwent lumpectomy and SNB on 02-23-19. Pathology reveled a [id number] ER/CT +, Her 2-, G1; Stage 1A; She did not have radiation therapy. Patient is doing well at this time, she has some persistent mild swelling under the arm. This is not painful for her. The patient did not have any radiation therapy. She was taking an antiestrogen medication, Anastrazole, palpation that she experienced joint pain, diarrhea, and hair thinning. She was therefore switched to exemestane that the symptoms continued and she therefore opted to stop all anti-hormone therapy. She has been off this therapy since approximately 5-6 months. Do not have any radiation therapy, she did not have any chemotherapy. The patient has no complaints at this time related to her breast[place] [address]. This was benign BIRADS 2 and follow-up diagnostic mammogram of the breast in 1 year was recommended. The patient presents for an examination and surveillance related to her breast cancer. At this time she has no complaints related to her breast. She has no complaints of lumps masses or nodules. She is not complaining of any nipple discharge or skin changes. She has had chest wall basal cell carcinomas many years ago. She was hospitalized in May with diverticulitis, this has resolved. External note from Dr[place] [address]. Family history: 1. Mother: Colon cancer 2. Sister.: Skin cancer 3. Patient: Skin cancer, chest wall Hormonal history: Menarche: 17 , one miscarriage, first live at 23, breast fed Yes Menopause: Hysterectomy at 42 did not take ovaries this was done for bleeding control pills: 15 years Hormones: Negative Past surgical history: 1. Cholecystectomy 2. Pacemaker 3. Breast reduction 4. Hernia surgery 5. Colon resection 6. Tonsillectomy 7. Hysterectomy 8. Pacemaker 9. Right breast lumpectomy/sentinel node biopsy Past medical history: 1. Atrial fibrillation pacemaker (Xeralto) 2. [place] 2010 3. DVT 2017 4. diverticular disease 5. Decreased hearing Social history: Smoke: One pack per week for 15 years Stopped smoking in 1995 Alcohol: Twice a month Drugs: Negative - Constitutional Constitutional: Denies chills, Denies fever - EENT Comment: wears glasses, cataracts Ears: left: decreased hearing (Right deaf, heariong aid left ear), deny: tinnitus Ears, nose, mouth and throat: Denies headache, Denies sore throat - Breasts Breasts: bilateral: as per HPI - Cardiovascular Cardiovascular: Reports high blood pressure, Denies chest pain, Denies shortness of breath - Respiratory Comment: former smoker - Gastrointestinal Gastrointestinal: Denies abdominal pain, Denies diarrhea, Denies nausea, Denies vomiting, diverticular disease - Genitourinary (Female) Genitourinary: Denies dysuria, Denies hematuria - Menstruation Menstruation: Reports post hysterectomy - Musculoskeletal Comment: arthritis - Integumentary Integumentary: Denies pruritus, Denies rash - Neurological Neurological: Denies numbness, Denies weakness - Psychiatric Psychiatric: Denies anxiety, Denies depression - Endocrine Comment: hypothyroid - Hematologic/Lymphatic Comment: none - Allergic/Immunologic Allergic/Immunologic: Reports seasonal allergies Objective - Vital Signs Vital signs: Vital Signs Temp 97.9 F 08/25/20 09:09 Pulse 61 08/25/20 09:09 Resp 18 08/25/20 09:09 BP 98/64 08/25/20 09:09 Pulse Ox 97 08/25/20 09:09 Intake & Output 08/24/20 08/25/20 08/25/20 18:59 06:59 18:59 Weight 78.471 kg - Exam BMI 29.7 - Constitutional General appearance: Present: average body habitus - EENT Eyes: Present: EOMI ENT: Present: hard of hearing - Respiratory Respiratory: bilateral: CTA - Cardiovascular Rhythm: regular Heart sounds: normal: S1, S2 - Gastrointestinal General gastrointestinal: Present: normal bowel sounds, soft - Musculoskeletal Musculoskeletal: Present: gait normal - Psychiatric Psychiatric: Present: A&O x's 3, appropriate affect - Additional findings Additional findings: breast exam: BRA 38C inspection: Scars bilaterally from prior reduction mammoplasty was Palpation: Right breast: Multiple positional exam fibrocystic changes, no dominant masses or nodules of concern Right axilla: No adenopathy of concern Left breast: Multiple positional exam fibrocystic changes, no dominant masses or nodules of concern there is a nevus which has increased in size and the scalene the upper aspect of the breast/chest wall Left axilla: No adenopathy of concern In the left chest wall there is a defibrillator in place Assessment and Plan Assessment: Impression: 1.Atrial fibrillation pacemaker (Xeralto) 2. [place] 2010 3. DVT 2017 4. diverticular disease 5. Decreased hearing 6. No evidence of recurrent cancer 7. Skin lesion left breast/chest wall increasing in size 8. Patient has opted not to take any anti-hormone therapy secondary to symptoms including diarrhea, joint pain, and hair thinning Plan: 1. Bilateral mammogram in November with examination at that time 2. Excision in the office of skin lesion on the left breast/chest wall 3. Patient presently on Xeralto she will continue this 4. Patient is no longer taking an antiestrogen medication she will follow with medical oncology with respect to this CC: Dr. Beavers Risks and benefits of removal of the skin lesion were discussed with the patient and she wishes to proceed. Risks include but are not limited to bleeding, infection, reaction to the anesthetic. The greatest risk is oozing secondary to the sotalol toe she understands and we will follow this closely Encounter 20 minutes, time spent in reviewing medical records, physical examination, and counseling.
== END | disposition home or self-care (01) ==
LOC: WWCWWP 08:57
PROVIDERS: ATTEND Surgery
DX: L98.9 Disorder of the skin and subcutaneous tissue, unspecified (principal); I48.91 Unspecified atrial fibrillation; K57.90 Diverticulosis of intestine, part unspecified, without perforation or abscess without bleeding; H91.90 Unspecified hearing loss, unspecified ear; I25.2 Old myocardial infarction; Z86.718 Personal history of other venous thrombosis and embolism; Z95.0 Presence of cardiac pacemaker; Z87.891 Personal history of nicotine dependence; Z85.3 Personal history of malignant neoplasm of breast

== ENCOUNTER → 2020-10-19 | Outpatient (CLI) | payer MEDICARE ==
[2020-10-19 09:10] VITALS: BP 120/72; PULSE 65; RESP 18; TEMP 97.7
--- NOTE | 2020-10-19 09:30 | P.OP ---
Date of Procedure: 10/19/20 Preoperative Diagnosis: Skin lesion of concern left breast/chest wall Postoperative Diagnosis: Same Procedure(s) Performed: Excision skin lesion of concern left breast/chest wall Anesthesia: local Surgeon: Kailyn Lima Pathology: other (Skin lesion) Condition: stable Disposition: same day Indications for Procedure: Skin lesion left breast/chest wall which is increasing in size Operative Findings: Skin lesion Description of Procedure: The area of concern in the left breast was prepped in a sterile fashion using Betadine. A sterile drape was placed. Using sterile technique 1% lidocaine was used to anesthetize the area of concern. Approximately 5 mL were utilized. Following this wide excision of the area of concern was performed. This was approximately 1 cm in size and was taken through the skin into the subcutaneous tissue. The incision was closed using 4-0 nylon. The patient tolerated procedure in stable condition. At no time was the defibrillator exposed although the lesion was in proximity to this area. The specimen was sent for pathology. The patient will follow-up with Dr. Masterson .
== END | disposition home or self-care (01) ==
LOC: WWCWWP 08:37
PROVIDERS: ATTEND Surgery
DX: L82.1 Other seborrheic keratosis (principal)
CPT/HCPCS: 88305

== ENCOUNTER → 2020-10-26 | Outpatient (CLI) | payer MEDICARE ==
[2020-10-26 12:01] VITALS: BP 98/66; PULSE 85; RESP 18; TEMP 97.9
--- NOTE | 2020-10-26 12:14 | P.PN ---
Progress Note - Text Progress Note Date: 10/26/20 Berenice a 79-year-old white female status post excision of skin lesion on the left chest wall performed on 420 [id number]. This was seborrheic keratosis. She is doing well at this time with no complaints. Physical exam: Incision clean and dry plan follow-up 1 week for suture removal. CC; Dr. Kunz
== END ==
LOC: WWCWWP 11:11
PROVIDERS: ATTEND Surgery
DX: Z48.817 Encounter for surgical aftercare following surgery on the skin and subcutaneous tissue (principal); L82.1 Other seborrheic keratosis; Z87.891 Personal history of nicotine dependence; Z98.890 Other specified postprocedural states

== ENCOUNTER → 2020-11-03 | Outpatient (CLI) | payer MEDICARE ==
[2020-11-03 11:37] VITALS: BP 99/67; PULSE 55; RESP 16; TEMP 97.9
--- NOTE | 2020-11-03 11:46 | P.PN ---
Progress Note - Text Progress Note Date: 11/03/20 Berenice a 79-year-old white female status post excision of skin lesion on the left chest wall performed on . This was seborrheic keratosis. She is doing well at this time with no complaints. Physical exam: Incision clean and dry/sutures to be removed Impression: 1. Patient status post excision of seborrheic keratosis left chest wall 2. Patient status post right breast stage I invasive ductal carcinoma she underwent a lumpectomy and sentinel node biopsy on 006 850 3. Patient due for bilateral mammogram November 2020 Plan: 1. Repeat bilateral mammogram November 2020 with physician exam at that time CC; Dr. Kunz
== END ==
LOC: WWCWWP 11:10
PROVIDERS: ATTEND Surgery
DX: Z48.817 Encounter for surgical aftercare following surgery on the skin and subcutaneous tissue (principal); Z87.891 Personal history of nicotine dependence; Z98.890 Other specified postprocedural states; Z85.3 Personal history of malignant neoplasm of breast

== ENCOUNTER → 2020-11-10 | Outpatient (CLI) | payer MEDICARE ==
--- NOTE | 2020-11-10 15:12 | US ---
EXAMINATION TYPE: US kidneys/renal and bladder DATE OF EXAM: 11/10/2020 COMPARISON: US & CT's CLINICAL HISTORY: N18.9 CHR KIDNEY DISEASE. EXAM MEASUREMENTS: Right Kidney: 7.8 x 4.4 x 4.1 cm Left Kidney: 10.2 x 4.9 x 5.7 cm Right Kidney: No hydronephrosis or masses seen Left Kidney: lateral cyst measures 4.2 x 3.5 x 3.6 cm. Bladder: wnl Bilateral Jets seen: No There is no evidence for hydronephrosis at this point in time. No nephrolithiasis is seen. No solid masses are identified. The urinary bladder is anechoic. IMPRESSION: Left renal cyst noted.
== END | disposition home or self-care (01) ==
LOC: RADUSWWP 14:47
PROVIDERS: ATTEND Internal Medicine
DX: N28.1 Cyst of kidney, acquired (principal)
CPT/HCPCS: 76770

== ENCOUNTER → 2020-11-29 | Outpatient (CLI) | payer MEDICARE ==
--- NOTE | 2020-11-29 09:53 | XR ---
EXAMINATION TYPE: XR chest 2V DATE OF EXAM: 11/29/2020 COMPARISON: 06/14/2020 TECHNIQUE: PA and lateral views submitted. HISTORY: Cough FINDINGS: Heart is enlarged and there is a left lower lobe infiltrate and small effusion with interstitial prom inence. No pneumothorax. Arthropathy of the shoulders. Cardiac device noted. IMPRESSION: Cardiomegaly with left lower lobe infiltrate and small effusion. Correlate for mild chron ic interstitial lung disease or venous congestion.
== END | disposition home or self-care (01) ==
LOC: RADXRMAIN 09:28
PROVIDERS: ATTEND Internal Medicine
DX: R91.8 Other nonspecific abnormal finding of lung field (principal); I51.7 Cardiomegaly
CPT/HCPCS: 71046

== ENCOUNTER → 2021-01-22 | Outpatient (CLI) | payer MEDICARE ==
--- NOTE | 2021-01-25 14:28 | MM ---
Reason for exam: screening (asymptomatic). Last mammogram was performed 1 year and 1 month ago. History: Patient is postmenopausal, has history of breast cancer at age 78, and has history of other cancer at age 67. Malignant US breast localization RT of the right breast, February 23, 2019. Lumpectomy of the right breast, February 23, 2019. Malignant US biopsy breast VAD RT of the right breast, December 28, 2018. Reductions of both breasts, 1996. Took estrogen for 3 years. Physical Findings: A clinical breast exam by your physician is recommended on an annual basis and results should be correlated with mammographic findings. MG 3D Screening Mammo W/Cad Bilateral CC and MLO view(s) were taken. Prior study comparison: December 21, 2019, bilateral MG 3d diag mammo w/cad JOSEPH. February 23, 2019, right breast MG diagnostic mammo RT wo CAD. December 28, 2018, right breast MG diagnostic mammo RT wo CAD. December 14, 2018, bilateral MG 3d screening mammo w/cad. November 18, 2017, bilateral MG 3d diag mammo w/cad JOSEPH. There are scattered fibroglandular densities. Pacemaker left breast. Surgical clip right breast. No significant changes when compared with prior studies. ASSESSMENT: Benign, BI-RAD 2 RECOMMENDATION: Routine screening mammogram of both breasts in 1 year.
== END | disposition home or self-care (01) ==
LOC: RADMAMWWP 08:40
PROVIDERS: ATTEND Surgery
DX: Z12.31 Encounter for screening mammogram for malignant neoplasm of breast (principal)
CPT/HCPCS: 77063; 77067

== ENCOUNTER → 2021-01-26 | Outpatient (CLI) | payer MEDICARE ==
--- NOTE | 2021-01-26 11:34 | XR ---
EXAMINATION TYPE: XR foot complete LT DATE OF EXAM: 01/26/2021 COMPARISON: NONE HISTORY: Pain TECHNIQUE: Three views are submitted. FINDINGS: There is hypertrophic arthropathy of the first MTP. Bunion noted. Angulation of all MTP joints seen. Calcaneal spur noted. No acute fracture or dislocation. IMPRESSION: 1. Hypertrophic arthropathy first MTP joint. Findings compatible with bunion.
--- NOTE | 2021-01-26 11:35 | XR ---
EXAMINATION TYPE: XR cervical spine comp DATE OF EXAM: 01/26/2021 COMPARISON: NONE HISTORY: Pain TECHNIQUE: Four views are submitted. FINDINGS: The odontoid is intact. There are no compression deformities. The prevertebral soft tissue structur es are within normal limits. There is moderate degenerative disc disease C2-C3. There is multilevel facet arthropathy with severe degenerative disc disease C4-5, C5-6 and C6-C7 with posterior spondylos is and anterior osteophyte formation. Soft tissue calcifications likely related carotid arteries. Cor relate clinically. Cardiac leads are suggested. There is foraminal encroachment bilaterally at levels C3-C7. IMPRESSION: 1. Multiple severe degenerative disc disease with foraminal encroachment.
== END | disposition home or self-care (01) ==
LOC: RADXRMAIN 10:47
PROVIDERS: ATTEND Internal Medicine
DX: M50.31 Other cervical disc degeneration, high cervical region (principal); M47.12 Other spondylosis with myelopathy, cervical region; M10.00 Idiopathic gout, unspecified site
CPT/HCPCS: 72050

== ENCOUNTER → 2021-03-09 | Outpatient (CLI) | payer MEDICARE ==
[2021-03-09 14:46] VITALS: BP 109/73; PULSE 61; RESP 18; TEMP 97.8
--- NOTE | 2021-03-09 15:15 | P.PN ---
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 She was on a blood thinner and this was stopped. The patient had a mammogram done on 12-14-18. This revealed a 7 mm microlobulated mass in the upper outer quadrant in the right breast. Subsequently an ultrasound was performed and the ultrasound confirmed this area. She underwent ultrasound-guided core biopsy of the right breast on 7118. In addition to the 7 mm mass at the 10 o'clock position of the right breast there were 2 lesions 1 at 4 mm and 1-2 mm seen 7 mm apart from the index mass. The index mass was sampled and this was positive for invasive ductal carcinoma grade 1. This is ER/KS positive and HER-2 2 negative. She underwent lumpectomy and SNB on 02-23-19. Pathology reveled a [id number] ER/KS +, Her 2-, G1; Stage 1A; She did not have radiation therapy. Patient is doing well at this time, she has some persistent mild swelling under the arm. This is not painful for her. The patient did not have any radiation therapy. She was taking an antiestrogen medication, Anastrazole, patient states that she experienced joint pain, diarrhea, and hair thinning. She was therefore switched to exemestane the symptoms continued and she therefore opted to stop all anti-hormone therapy. She has been off this therapy since approximately 5-6 months. Do not have any radiation therapy, she did not have any chemotherapy. The patient has no complaints at this time related to her breast. The patient had a bilateral mammogram on 01-22-21. This was benign BIRADS 2 and follow-up diagnostic mammogram of the breast in 1 year was recommended. The patient presents for an examination and surveillance related to her breast cancer. At this time she has no complaints related to her breast. She has no complaints of lumps masses or nodules. She is not complaining of any nipple discharge or skin changes. She has had chest wall basal cell carcinomas many years ago. She has had no recent problems with diverticulitis. Family history: 1. Mother: Colon cancer 2. Sister.: Skin cancer 3. Patient: Skin cancer, chest wall Hormonal history: Menarche: 17 , one miscarriage, first live at 23, breast fed Yes Menopause: Hysterectomy at 42 did not take ovaries this was done for bleeding control pills: 15 years Hormones: Negative Past surgical history: 1. Cholecystectomy 2. Pacemaker 3. Breast reduction 4. Hernia surgery 5. Colon resection 6. Tonsillectomy 7. Hysterectomy 8. Pacemaker 9. Right breast lumpectomy/sentinel node biopsy 02-23-19 Past medical history: 1. Atrial fibrillation pacemaker (Xeralto) 2. VT 2010 3. DVT 2017 4. diverticular disease 5. Decreased hearing Social history: Smoke: One pack per week for 15 years Stopped smoking in 1995 Alcohol: Twice a month Drugs: Negative - Constitutional Constitutional: Denies chills, Denies fever - EENT Comment: wears glasses, cataracts Ears: left: decreased hearing (Right deaf, heariong aid left ear), deny: tinnitus Ears, nose, mouth and throat: Denies headache, Denies sore throat - Breasts Breasts: bilateral: as per HPI - Cardiovascular Cardiovascular: Reports high blood pressure, Denies chest pain, Denies shortness of breath - Respiratory Comment: former smoker - Gastrointestinal Gastrointestinal: Denies abdominal pain, Denies diarrhea, Denies nausea, Denies vomiting, diverticular disease - Genitourinary (Female) Genitourinary: Denies dysuria, Denies hematuria - Menstruation Menstruation: Reports post hysterectomy - Musculoskeletal Comment: arthritis - Integumentary Integumentary: Denies pruritus, Denies rash - Neurological Neurological: Denies numbness, Denies weakness - Psychiatric Psychiatric: Denies anxiety, Denies depression - Endocrine Comment: hypothyroid - Hematologic/Lymphatic Comment: none - Allergic/Immunologic Allergic/Immunologic: Reports seasonal allergies Objective - Vital Signs Vital signs: Vital Signs Temp 97.8 F 03/09/21 14:39 Pulse 61 03/09/21 14:39 Resp 18 03/09/21 14:39 BP 109/73 03/09/21 14:39 Pulse Ox 96 03/09/21 14:39 Intake & Output 03/08/21 03/09/21 03/09/21 18:59 06:59 18:59 Weight 81.647 kg - Exam BMI 31.9 - Constitutional General appearance: Present: cooperative - EENT Eyes: Present: EOMI ENT: Present: hearing grossly normal - Neck Neck: Present: normal ROM - Respiratory Respiratory: bilateral: CTA - Cardiovascular Rhythm: regular Heart sounds: normal: S1, S2 - Gastrointestinal General gastrointestinal: Present: soft - Integumentary Integumentary: Present: normal turgor - Musculoskeletal Musculoskeletal: Present: gait normal - Psychiatric Psychiatric: Present: A&O x's 3, appropriate affect, intact judgment & insight - Additional findings Additional findings: Breast Exam: BRA: 36C inspection: Well-healed scars from prior bilateral reduction mammoplasty Palpation: Right breast: Multi-positional exam no dominant masses or nodules of concern, fibrocystic changes Right axilla: No adenopathy of concern Left breast: Multiple positional exam fibrocystic changes no dominant masses or nodules of concern Left axilla: No adenopathy of concern Assessment and Plan Assessment: Impression: 1. No evidence of any recurrent right breast invasive ductal carcinoma/stage I 2. Recent bilateral mammograms [id number] benign BIRADS 2 Plan: 1. Follow-up bilateral mammogram is 1 year 2. Follow-up clinical exam in 6 months 3. Follow-up sooner any questions or concerns CC: Ze
== END ==
LOC: WWCWWP 14:14
PROVIDERS: ATTEND Surgery
DX: Z08 Encounter for follow-up examination after completed treatment for malignant neoplasm (principal); I48.91 Unspecified atrial fibrillation; I25.2 Old myocardial infarction; Z86.718 Personal history of other venous thrombosis and embolism; Z85.3 Personal history of malignant neoplasm of breast; Z79.01 Long term (current) use of anticoagulants; Z95.0 Presence of cardiac pacemaker; Z87.891 Personal history of nicotine dependence; Z91.048 Other nonmedicinal substance allergy status; Z88.6 Allergy status to analgesic agent; Z88.1 Allergy status to other antibiotic agents

== ENCOUNTER 2021-06-14 09:14 | Emergency (ER) | payer MEDICARE ==
[2021-06-14] MEDS ORDERED: ONDANSETRON 4 MG/2 ML VIAL IVP STA (09:27)
[2021-06-14] MEDS ORDERED: MORPHINE SULFATE 4 MG/ML SYRINGE IV STA (09:27)
[2021-06-14] MEDS ORDERED: SODIUM CHLORIDE 0.9% 1,000 ML IV STA (09:27)
[2021-06-14 10:01] LABS: Appearance,Urine Cloudy (Clear); Bacteria,Urine Occasional /hpf; Bilirubin,Urine Negative (Negative); Blood,Urine Trace (Negative); Color,Urine Light Yellow; Glucose,Urine (UA) Negative (Negative); Hyaline Casts,Urine 3 /lpf (0-2); Ketones,Urine Negative (Negative); Leukocyte Esterase,Urine Large (Negative); Nitrite,Urine Negative (Negative); Protein,Urine Negative (Negative); RBC,Urine 5 /hpf (0-5); Specific Gravity,Urine 1.007 (1.001-1.035); Squamous Epithelial Cell,Urine 8 /hpf (0-4); Urobilinogen,Urine <2.0 mg/dL (<2.0); WBC,Urine 32 /hpf (0-5)
[2021-06-14 10:03] LABS: Basophils % (A) 0 %; Eosinophils # (A) 0.1 k/uL (0-0.7); Eosinophils % (A) 1 %; HCT 39.9 % (34.0-46.0); HGB 13.2 gm/dL (11.4-16.0); Lymphocytes # (A) 2.2 k/uL (1.0-4.8); Lymphocytes % (A) 22 %; MCH 31.6 pg (25.0-35.0); MCHC 33.1 g/dL (31.0-37.0); MCV 95.2 fL (80.0-100.0); Mean Platelet Volume 8.9; Monocytes # (A) 0.6 k/uL (0-1.0); Monocytes % (A) 6 %; Neutrophils % (A) 69 %; Platelet Count 180 k/uL (150-450); RBC 4.19 m/uL (3.80-5.40); RDW 12.7 % (11.5-15.5); WBC 10.1 k/uL (3.8-10.6)
[2021-06-14 10:49] LABS: Albumin 4.2 g/dL (3.5-5.0); Calcium 9.7 mg/dL (8.4-10.2); Potassium 3.9 mmol/L (3.5-5.1); Total Bilirubin 1.1 mg/dL (0.2-1.3); Total Protein 7.3 g/dL (6.3-8.2)
--- NOTE | 2021-06-14 10:54 | US ---
EXAMINATION TYPE: US venous doppler duplex LE LT DATE OF EXAM: 06/14/2021 9:29 AM COMPARISON: NONE CLINICAL HISTORY: 80-year-old female pain/swelling. SIDE PERFORMED: Left TECHNIQUE: The lower extremity deep venous system is examined utilizing real time linear array sonog evangelist with graded compression, doppler sonography and color-flow sonography. FINDINGS: VESSELS IMAGED: Common Femoral Vein Deep Femoral Vein Greater Saphenous Vein * Femoral Vein Popliteal Vein Small Saphenous Vein * Proximal Calf Veins (* superficial vessels) Left Leg: Appears negative for DVT IMPRESSION: No evidence for DVT within the left lower extremity imaged from the groin to the upper calf.
[2021-06-14 11:15] VITALS: RESP 16
--- NOTE | 2021-06-14 11:35 | CT ---
EXAMINATION TYPE: CT abdomen pelvis w con DATE OF EXAM: 06/14/2021 HISTORY: pain, history of diverticulitis CT DLP: 1178.2mGycm Automated Exposure Control for Dose Reduction was Utilized. CONTRAST: CT scan of the abdomen and pelvis is performed without oral but with IV Contrast, patient injected wi th 100 mL of Isovue 300. COMPARISON: CT abdomen and pelvis June 13, 2020 FINDINGS: LUNG BASES: Cardiomegaly with multilead pacemaker/defibrillator is redemonstrated. LIVER/GB: Cholecystectomy clips are again seen. Scattered small subcentimeter hypodense lesions too s mall to further characterize favored benign redemonstrated in the left hepatic lobe. PANCREAS: No significant abnormality is seen. SPLEEN: No significant abnormality is seen. ADRENALS: No significant abnormality is seen. KIDNEYS: Symmetric cortical medullary uptake and excretion without hydronephrosis seen bilaterally. Simple appearing 3.4 cm thin-walled cyst in the left kidney laterally midpole level. BOWEL: Suboptimal evaluation of bowel without enteric contrast. Stomach poorly distended and thus sub optimally evaluated. No suspicious small or large bowel dilatation. Few diverticula in the sigmoid co philip there are surgical sutures. No adjacent fat stranding to suggest acute diverticulitis. Additional scattered colonic diverticula are present. Mild to moderate focal wall thickening proximal transvers e colon without significant surrounding fat stranding coronal image 27 for reference. UTERUS/ADNEXA: Uterus surgically absent. Scattered pelvic phleboliths redemonstrated. LYMPH NODES: No greater than 1cm abdominal or pelvic lymph nodes are appreciated. OSSEOUS STRUCTURES: Slight underlying scoliotic curvature. Moderate to severe disc space narrowing L3 -L4 level. Grade 1 retrolisthesis L3 on L4. Moderate disc space narrowing left L5-S1 level. OTHER: No significant additional abnormality is seen. IMPRESSION: No bowel obstruction. Prior distal colonic surgery and re-anastomosis redemonstrated. Sca ttered colonic diverticula again seen. No CT evidence for acute diverticulitis currently. Focal mild wall thickening over short segment proximal transverse colon, A uncomplicated colitis at this level c annot be entirely excluded. Correlate clinically. Advise nonemergent colonoscopy follow-up to further evaluate it has not been performed in last 3 years. Otherwise no suspicious new or acute findings pr esent.
--- NOTE | 2021-06-14 11:46 | ED ---
Abdominal Pain HPI - General Chief Complaint: Abdominal Pain Stated Complaint: abd pain, bloating Time Seen by Provider: 06/14/21 09:24 Source: patient, RN notes reviewed Mode of arrival: ambulatory Limitations: no limitations - History of Present Illness Initial Comments: Patient is a 80-year-old female that presents to the emergency room complaining of left lower abdomen pain and left leg pain for the past day. She notes that she does have a history of multiple colon issues including diverticulitis. She notes that her left leg she noted a bump on the back of her knee that wasn't there previously. She noted that her pain was approximately an 8-9 out of 10 with no relief. She denied any alleviating or radiating factors. She denied any frequency or dysuria. She denied any chest pain shortness of breath headache nausea vomiting diarrhea constipation fever fatigue chills. - Related Data Home Medications Medication Instructions Recorded Confirmed Furosemide [Lasix] 40 mg PO BID 11/30/13 06/14/21 Spironolactone [Aldactone] 25 mg PO DAILY 11/30/13 06/14/21 Ubidecarenone [Coq-10] 100 mg PO HS 01/20/14 06/14/21 Levothyroxine Sodium [Synthroid] 75 mcg PO DAILY 10/20/17 06/14/21 Sacubitril/Valsartan [Entresto 24 1 tab PO BID 01/19/18 06/14/21 mg-26 mg Tablet] Allopurinol [Zyloprim] 100 mg PO HS 01/27/20 06/14/21 Atorvastatin [Lipitor] 20 mg PO DAILY 06/09/20 06/14/21 Magnesium Oxide [Peña] 500 mg PO HS 06/09/20 06/14/21 Metoprolol Succinate [Toprol XL] 200 mg PO DAILY 06/09/20 06/14/21 Albuterol Inhaler [Ventolin Hfa 2 puff INHALATION RT-Q6H PRN 06/14/21 06/14/21 Inhaler] Fluticasone Nasal [place] [Flonase 1 spray EA NOSTRIL DAILY PRN 06/14/21 06/14/21 Nasal [place]] Rivaroxaban [Xarelto] 15 mg PO HS 06/14/21 06/14/21 Previous Rx's Medication Instructions Recorded Cephalexin [Keflex] 500 mg PO Q6HR #40 cap 06/14/21 Allergies Allergy/AdvReac Type Severity Reaction Status Date / Time adhesive tape Allergy blisters Verified 06/14/21 11:23 ibuprofen [From Motrin] Allergy Swelling Verified 06/14/21 11:23 levofloxacin [From Levaquin] Allergy Rash/Hives Verified 06/14/21 11:23 Review of Systems ROS Statement: Those systems with pertinent positive or pertinent negative responses have been documented in the HPI. ROS Other: All systems not noted in ROS Statement are negative. Past Medical History Past Medical History: Memory Impairment, Thyroid Disorder Additional Past Medical History / Comment(s): hiatal hernia, hx basal skin cancer, hx diverticulitis Last Myocardial Infarction Date:: 04/2012 History of Any Multi-Drug Resistant Organisms: None Reported Past Surgical History: AICD, Bowel Resection, Breast Surgery, Cardiac Ablation, Cholecystectomy, Heart Catheterization, Hysterectomy, Orthopedic Surgery, Tonsillectomy Additional Past Surgical History / Comment(s): bilateral breast reduction 1995, arthroscopic rt knee, partial hysterectomy (bilateral ovaries retained), pacemaker battery replaced October 2018 Past Anesthesia/Blood Transfusion Reactions: No Reported Reaction Additional Past Anesthesia/Blood Transfusion Reaction / Comment(s): No blood transfusions to date (pt had an autolygous transfusion when undergoing bilateral breast reduction). Type of Cardiac Device: Permanent Pacemaker, AICD Device Placement Date:: 2006 (info from pt's med [employer]- [id number],model#[id number]) Past Psychological History: No Psychological Hx Reported Smoking Status: Former smoker Past Alcohol Use History: Occasional Past Drug Use History: None Reported - Past Family History Mother Family Medical History: Cancer Additional Family Medical History / Comment(s): Colon cancer dx at age 74, at age 84. Sister(s) Family Medical History: Cancer, CVA/TIA, Deep Vein Thrombosis (DVT) Additional Family Medical History / Comment(s): pt has 2 sisters: sister #1: at age 79 from stroke complications (also had a hx of blood clots). sister #2: had a cancerous tumor on aortic valve. Son(s) Family Medical History: Deep Vein Thrombosis (DVT) Brother(s) Family Medical History: CVA/TIA, Deep Vein Thrombosis (DVT) Additional Family Medical History / Comment(s): She has 1 brother with a history of stroke and blood clot. Father Family Medical History: Congestive Heart Failure (CHF) General Exam Limitations: no limitations General appearance: alert, in no apparent distress, obese Head exam: Present: atraumatic, normocephalic, normal inspection Eye exam: Present: normal appearance, PERRL, EOMI. Absent: scleral icterus, conjunctival injection, periorbital swelling ENT exam: Present: normal exam, mucous membranes moist Neck exam: Present: normal inspection. Absent: tenderness, meningismus, lymphadenopathy Respiratory exam: Present: normal lung sounds bilaterally. Absent: respiratory distress, wheezes, rales, rhonchi, stridor Cardiovascular Exam: Present: regular rate, normal rhythm, normal heart sounds. Absent: systolic murmur, diastolic murmur, rubs, gallop, clicks GI/Abdominal exam: Present: soft, tenderness (Left lower quadrant), normal bowel sounds. Absent: distended, guarding, rebound, rigid Extremities exam: Present: normal inspection, full ROM, normal capillary refill. Absent: tenderness, pedal edema, joint swelling, calf tenderness Neurological exam: Present: alert, oriented X3 Psychiatric exam: Present: normal affect, normal mood Skin exam: Present: warm, dry, intact, normal color. Absent: rash Course Vital Signs 06/14/21 06/14/21 09:17 11:14 Temperature 97.7 F Pulse Rate 68 63 Respiratory 18 16 Rate Blood Pressure 113/62 99/61 O2 Sat by Pulse 98 98 Oximetry Medical Decision Making - Medical Decision Making 80-year-old female complaining of left lower abdominal pain and a left lower extremity swelling. Labs, 1 L normal saline, also left lower extremities, CT of the abdomen and pelvis, 4 mg of morphine ordered. Labs: CBC and CMP unremarkable, urinalysis shows 30 white blood cells 8, squamous epithelium cells blood in the urine. 1 g Rocephin ordered. Imaging negative for any acute or new processes. Recommend follow-up colonoscopy if it has not been done of the past 3 years. Antibiotics will be sent to pharmacy. Case discussed with Dr. Alvarado. Patient most likely experiencing a urinary tract infection or mild colitis. - Lab Data Result diagrams: 06/14/21 09:39 06/14/21 09:39 Lab Results 12/16/21 12/16/21 12/16/21 Range/Units 09:39 09:39 09:39 WBC 10.1 (3.8-10.6) k/uL RBC 4.19 (3.80-5.40) m/uL Hgb 13.2 (11.4-16.0) gm/dL Hct 39.9 (34.0-46.0) % MCV 95.2 (80.0-100.0) fL MCH 31.6 (25.0-35.0) pg MCHC 33.1 (31.0-37.0) g/dL RDW 12.7 (11.5-15.5) % Plt Count 180 (150-450) k/uL MPV 8.9 Neutrophils % 69 % Lymphocytes % 22 % Monocytes % 6 % Eosinophils % 1 % Basophils % 0 % Neutrophils # 7.0 (1.3-7.7) k/uL Lymphocytes # 2.2 (1.0-4.8) k/uL Monocytes # 0.6 (0-1.0) k/uL Eosinophils # 0.1 (0-0.7) k/uL Basophils # 0.0 (0-0.2) k/uL Sodium 135 L (137-145) mmol/L Potassium 3.9 (3.5-5.1) mmol/L Chloride 97 L (98-107) mmol/L Carbon Dioxide 28 (22-30) mmol/L Anion Gap 10 mmol/L BUN 26 H (7-17) mg/dL Creatinine 1.08 H (0.52-1.04) mg/dL Est GFR (CKD-EPI)AfAm 57 (>60 ml/min/1.73 sqM) Est GFR (CKD-EPI)NonAf 49 (>60 ml/min/1.73 sqM) Glucose 105 H (74-99) mg/dL Plasma Lactic Acid Chris (0.7-2.0) mmol/L Calcium 9.7 (8.4-10.2) mg/dL Total Bilirubin 1.1 (0.2-1.3) mg/dL AST 28 (14-36) U/L ALT 22 (4-34) U/L Alkaline Phosphatase 67 (38-126) U/L Total Protein 7.3 (6.3-8.2) g/dL Albumin 4.2 (3.5-5.0) g/dL Amylase 61 (30-110) U/L Lipase 278 (23-300) U/L Urine Color Light Yellow Urine Appearance Cloudy H (Clear) Urine pH 6.0 (5.0-8.0) Ur Specific [place] 1.007 (1.001-1.035) Urine Protein Negative (Negative) Urine Glucose (UA) Negative (Negative) Urine Ketones Negative (Negative) Urine Blood Trace H (Negative) Urine Nitrite Negative (Negative) Urine Bilirubin Negative (Negative) Urine Urobilinogen <2.0 (<2.0) mg/dL Ur Leukocyte Esterase Large H (Negative) Urine RBC 5 (0-5) /hpf Urine WBC 32 H (0-5) /hpf Ur Squamous Epith Cells 8 H (0-4) /hpf Urine Bacteria Occasional H (None) /hpf Hyaline Casts 3 H (0-2) /lpf 06/14/21 Range/Units 09:39 WBC (3.8-10.6) k/uL RBC (3.80-5.40) m/uL Hgb (11.4-16.0) gm/dL Hct (34.0-46.0) % MCV (80.0-100.0) fL MCH (25.0-35.0) pg MCHC (31.0-37.0) g/dL RDW (11.5-15.5) % Plt Count (150-450) k/uL MPV Neutrophils % % Lymphocytes % % Monocytes % % Eosinophils % % Basophils % % Neutrophils # (1.3-7.7) k/uL Lymphocytes # (1.0-4.8) k/uL Monocytes # (0-1.0) k/uL Eosinophils # (0-0.7) k/uL Basophils # (0-0.2) k/uL Sodium (137-145) mmol/L Potassium (3.5-5.1) mmol/L Chloride (98-107) mmol/L Carbon Dioxide (22-30) mmol/L Anion Gap mmol/L BUN (7-17) mg/dL Creatinine (0.52-1.04) mg/dL Est GFR (CKD-EPI)AfAm (>60 ml/min/1.73 sqM) Est GFR (CKD-EPI)NonAf (>60 ml/min/1.73 sqM) Glucose (74-99) mg/dL Plasma Lactic Acid Chris 1.2 (0.7-2.0) mmol/L Calcium (8.4-10.2) mg/dL Total Bilirubin (0.2-1.3) mg/dL AST (14-36) U/L ALT (4-34) U/L Alkaline Phosphatase (38-126) U/L Total Protein (6.3-8.2) g/dL Albumin (3.5-5.0) g/dL Amylase (30-110) U/L Lipase (23-300) U/L Urine Color Urine Appearance (Clear) Urine pH (5.0-8.0) Ur Specific [place] (1.001-1.035) Urine Protein (Negative) Urine Glucose (UA) (Negative) Urine Ketones (Negative) Urine Blood (Negative) Urine Nitrite (Negative) Urine Bilirubin (Negative) Urine Urobilinogen (<2.0) mg/dL Ur Leukocyte Esterase (Negative) Urine RBC (0-5) /hpf Urine WBC (0-5) /hpf Ur Squamous Epith Cells (0-4) /hpf Urine Bacteria (None) /hpf Hyaline Casts (0-2) /lpf - Radiology Data Radiology results: report reviewed, image reviewed CT of the abdomen and pelvis: No bowel obstruction. Prior distal colonic surgery and really anastomosis redemonstrated. Scattered colonic diverticula again seen. No CT evidence for acute diverticulitis currently. Full or mild wall thickening over short segment proximal transverse colon, a uncomplicated colitis at this level cannot be entirely excluded. Correlate clinically advised nonemergent colonoscopy follow-up to further evaluate it has not been performed last 3 years. Otherwise no suspicious new or acute findings present. Ultrasound left lower extremity: Negative for DVT. Disposition Clinical Impression: Abdominal pain, Colitis, Urinary tract infection Disposition: HOME SELF-CARE Condition: Stable Instructions (If sedation given, give patient instructions): Urinary Tract Infection in Women (ED) Additional Instructions: Please return to the Emergency Department if symptoms worsen or any other concerns. Follow-up with primary care 1-2 days. Take antibiotics as prescribed. Is patient prescribed a controlled substance at d/c from ED?: No Referrals: Kostas Kunz MD [Primary Care Provider] - 1-2 days Time of Disposition: 11:45
[2021-06-14 12:21] VITALS: BP 98/58; PULSE 75; TEMP 97.6
== END 2021-06-14 12:24 | disposition home or self-care (01) ==
LOC: EC 09:14
DX: K52.9 Noninfective gastroenteritis and colitis, unspecified (principal); N39.0 Urinary tract infection, site not specified; R22.42 Localized swelling, mass and lump, left lower limb; E66.9 Obesity, unspecified; Z87.891 Personal history of nicotine dependence; Z79.01 Long term (current) use of anticoagulants; Z79.51 Long term (current) use of inhaled steroids; Z79.890 Hormone replacement therapy; Z79.899 Other long term (current) drug therapy; Z68.32 Body mass index [BMI] 32.0-32.9, adult
CPT/HCPCS: 99284 ×2; 96374 ×2; 96375 ×2; 96361 ×3; 36415; 80053; 82150; 83605; 83690; 85025; 81001; 87086; 93971; 74177; J2270; J2405; Q9967

== ENCOUNTER → 2021-10-19 | Outpatient (CLI) | payer MEDICARE ==
[2021-10-19 11:39] VITALS: BP 116/75; PULSE 88; RESP 12
--- NOTE | 2021-10-19 12:06 | P.PN ---
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 She was on a blood thinner and this was stopped. The patient had a mammogram done on 12-14-18. This revealed a 7 mm microlobulated mass in the upper outer quadrant in the right breast. Subsequently an ultrasound was performed and the ultrasound confirmed this area. She underwent ultrasound-guided core biopsy of the right breast on 7118. In addition to the 7 mm mass at the 10 o'clock position of the right breast there were 2 lesions 1 at 4 mm and 1-2 mm seen 7 mm apart from the index mass. The index mass was sampled and this was positive for invasive ductal carcinoma grade 1. This is ER/MA positive and HER-2 2 negative. She underwent lumpectomy and SNB on 02-23-19. Pathology reveled a [id number] ER/MA +, Her 2-, G1; Stage 1A; She did not have radiation therapy. Patient is doing well at this time, she has some persistent mild swelling under the arm. This is not painful for her. The patient did not have any radiation therapy. She was taking an antiestrogen medication, Anastrazole, patient states that she experienced joint pain, diarrhea, and hair thinning. She was therefore switched to exemestane the symptoms continued and she therefore opted to stop all anti-hormone therapy. She has been off this therapy since approximately 5-6 months. Do not have any radiation therapy, she did not have any chemotherapy. The patient has no complaints at this time related to her breast. The patient had a bilateral mammogram on 01-22-21. This was benign BIRADS 2 and follow-up diagnostic mammogram of the breast in 1 year was recommended. The patient presents for an examination and surveillance related to her breast cancer. 10-19-21 At this time she has no complaints related to her breast. She has no complaints of lumps masses or nodules. She is not complaining of any nipple discharge or skin changes. She has had chest wall basal cell carcinomas many years ago. Family history: 1. Mother: Colon cancer 2. Sister.: Skin cancer 3. Patient: Skin cancer, chest wall Hormonal history: Menarche: 17 , one miscarriage, first live at 23, breast fed Yes Menopause: Hysterectomy at 42 did not take ovaries this was done for bleeding control pills: 15 years Hormones: Negative Past surgical history: 1. Cholecystectomy 2. Pacemaker 3. Breast reduction 4. Hernia surgery 5. Colon resection 6. Tonsillectomy 7. Hysterectomy 8. Pacemaker 9. Right breast lumpectomy/sentinel node biopsy 02-23-19 Past medical history: 1. Atrial fibrillation pacemaker (Xeralto) 2. NC 2010 3. DVT 2017 4. diverticular disease 5. Decreased hearing Social history: Smoke: One pack per week for 15 years Stopped smoking in 1995 Alcohol: Twice a month Drugs: Negative - Constitutional Constitutional: Denies chills, Denies fever - EENT Comment: wears glasses, cataracts Ears: left: decreased hearing (Right deaf, heariong aid left ear), deny: tinnitus Ears, nose, mouth and throat: Denies headache, Denies sore throat - Breasts Breasts: bilateral: as per HPI - Cardiovascular Cardiovascular: Reports high blood pressure, Denies chest pain, Denies shortness of breath - Respiratory Comment: former smoker - Gastrointestinal Gastrointestinal: Denies abdominal pain, Denies diarrhea, Denies nausea, Denies vomiting, diverticular disease - Genitourinary (Female) Genitourinary: Denies dysuria, Denies hematuria - Menstruation Menstruation: Reports post hysterectomy - Musculoskeletal Comment: arthritis - Integumentary Integumentary: Denies pruritus, Denies rash - Neurological Neurological: Denies numbness, Denies weakness - Psychiatric Psychiatric: Denies anxiety, Denies depression - Endocrine Comment: hypothyroid - Hematologic/Lymphatic Comment: none - Allergic/Immunologic Allergic/Immunologic: Reports seasonal allergies Objective - Vital Signs Vital signs: Vital Signs Temp Pulse 88 10/19/21 11:34 Resp 12 10/19/21 11:34 BP 116/75 10/19/21 11:34 Pulse Ox Intake & Output 10/18/21 10/19/21 10/19/21 18:59 06:59 18:59 Weight 88.451 kg - Exam BMI 31.9 - Constitutional General appearance: Present: cooperative - EENT Eyes: Present: EOMI ENT: Present: hearing grossly normal - Neck Neck: Present: normal ROM - Respiratory Respiratory: bilateral: CTA - Cardiovascular Heart sounds: normal: S1, S2 - Gastrointestinal General gastrointestinal: Present: soft - Integumentary Integumentary: Present: normal turgor - Musculoskeletal Musculoskeletal: Present: gait normal - Psychiatric Psychiatric: Present: A&O x's 3, appropriate affect, intact judgment & insight - Additional findings Additional findings: Breast Exam: BRA: 36C inspection: well healed scars from prior reduction mammoplasty palpation: Right breast multiple positional exam fibrocystic changes no dominant masses or nodules of concern Right axilla: No adenopathy of concern Left breast: Multiple positional exam fibrocystic changes or dominant masses or nodules of concern Left axilla: No adenopathy of concern Left Chest Wall: Pacemaker/defibrillator in place Assessment and Plan Assessment: Impression: 1. Atrial fibrillation pacemaker (Xeralto) 2. NC 2010 3. DVT 2017 4. diverticular disease 5. Decreased hearing 6. right breast stage IA invasive ductal carcinoma no evidence of recurrence, no radiation, no chemotherapy, no hormonal therapy; surgery 02-23-19 Plan: 1. Patient due for bilateral mammogram December 2021 2. Patient to call us if any questions or concerns 3. Follow-up after bilateral mammogram for results CC: Dr. Beavers
== END ==
LOC: WWCWWP 11:21
PROVIDERS: ATTEND Surgery
DX: Z08 Encounter for follow-up examination after completed treatment for malignant neoplasm (principal); Z85.3 Personal history of malignant neoplasm of breast; I25.2 Old myocardial infarction; I48.91 Unspecified atrial fibrillation; Z86.718 Personal history of other venous thrombosis and embolism; Z95.0 Presence of cardiac pacemaker; Z87.891 Personal history of nicotine dependence; Z91.048 Other nonmedicinal substance allergy status; Z88.6 Allergy status to analgesic agent; Z88.1 Allergy status to other antibiotic agents

== ENCOUNTER 2021-12-12 08:16 | Emergency (ER) | payer MEDICARE ==
[2021-12-12 08:26] VITALS: TEMP 97.9
[2021-12-12] MEDS ORDERED: ONDANSETRON 4 MG/2 ML VIAL IVP STA (08:43)
[2021-12-12] MEDS ORDERED: SODIUM CHLORIDE 0.9% 500 ML 500 ML IV STA (08:43)
[2021-12-12] MEDS ORDERED: MORPHINE SULFATE 4 MG/ML SYRINGE IV STA (08:43)
[2021-12-12 09:13] LABS: Basophils % (A) 0 %; Eosinophils # (A) 0.1 k/uL (0-0.7); Eosinophils % (A) 2 %; HCT 36.8 % (34.0-46.0); HGB 12.2 gm/dL (11.4-16.0); Lymphocytes # (A) 1.5 k/uL (1.0-4.8); Lymphocytes % (A) 17 %; MCH 32.2 pg (25.0-35.0); MCHC 33.2 g/dL (31.0-37.0); MCV 96.9 fL (80.0-100.0); Mean Platelet Volume 8.8; Monocytes # (A) 0.5 k/uL (0-1.0); Monocytes % (A) 6 %; Neutrophils # (A) 6.4 k/uL (1.3-7.7); Neutrophils % (A) 74 %; Platelet Count 189 k/uL (150-450); RDW 13.4 % (11.5-15.5); WBC 8.8 k/uL (3.8-10.6)
[2021-12-12 09:19] VITALS: RESP 16
[2021-12-12 09:21] LABS: INR 1.3 (<1.2); Partial Thromboplastin Time 29.1 sec (22.0-30.0); Prothrombin Time 13.7 sec (9.0-12.0)
[2021-12-12 09:29] LABS: Appearance,Urine Clear (Clear); Bilirubin,Urine Negative (Negative); Blood,Urine Negative (Negative); Color,Urine Light Yellow; Glucose,Urine (UA) Negative (Negative); Ketones,Urine Negative (Negative); Leukocyte Esterase,Urine Negative (Negative); Nitrite,Urine Negative (Negative); Protein,Urine Negative (Negative); Specific Gravity,Urine 1.006 (1.001-1.035); Urobilinogen,Urine <2.0 mg/dL (<2.0)
[2021-12-12 09:31] LABS: Albumin 4.1 g/dL (3.5-5.0); Calcium 9.1 mg/dL (8.4-10.2); Total Bilirubin 0.9 mg/dL (0.2-1.3); Total Protein 7.1 g/dL (6.3-8.2)
--- NOTE | 2021-12-12 09:50 | CT ---
EXAMINATION TYPE: CT abdomen pelvis wo con DATE OF EXAM: 12/12/2021 COMPARISON: CT dated 06/14/2021 HISTORY: Pain, History of diverticulitis, resection CT DLP: 757 mGycm Automated exposure control for dose reduction was used. TECHNIQUE: Helical acquisition of images was performed from the lung bases through the pelvis. FINDINGS: LUNG BASES: Severe cardiomegaly. LIVER/GB: Previous cholecystectomy. Scattered hepatic cysts. PANCREAS: No significant abnormality is seen. SPLEEN: No significant abnormality is seen. ADRENALS: No significant abnormality is seen. KIDNEYS: Left renal cyst without suspicious features, appreciated previously. Otherwise grossly unrem arkable kidneys. FREE AIR: No free air is visualized RETROPERITONEAL ADENOPATHY: None visualized REPRODUCTIVE ORGANS: Previous hysterectomy. No gross adnexal mass. URINARY BLADDER: Nondistended. PELVIC ADENOPATHY: No pathologically enlarged pelvic lymph nodes. OSSEOUS STRUCTURES: Degenerative changes at L3-4 level with retrolisthesis of L3 over L4. BOWEL: Suspected small sliding hiatal hernia, otherwise unremarkable nondistended stomach, duodenum and small bowel. Unremarkable colonic anastomosis in the pelvis. Scattered uncomplicated colonic dive rticulosis. No other significant colonic abnormality. OTHER: Arterial atherosclerotic calcification. Infrarenal abdominal aortic ectasia measuring up to 2. 1 cm. Minimal pelvic fluid. Suspected pelvic adhesions. IMPRESSION: No definite acute abnormality seen in the abdomen or the pelvis. Postsurgical changes and incidental findings as described above.
[2021-12-12 10:21] VITALS: BP 106/60; PULSE 61
--- NOTE | 2021-12-12 10:45 | ED ---
Abdominal Pain HPI - General Chief Complaint: Abdominal Pain Stated Complaint: Abd pain Time Seen by Provider: 12/12/21 08:28 Source: patient, RN notes reviewed Mode of arrival: ambulatory Limitations: no limitations - History of Present Illness Initial Comments: 81-year-old female presents emergency Department chief complaint of abdominal pain, constipation. Patient states that she has not gone in several days. Patient doesn't history of diverticulitis with colon resection. She denies any fevers or chills no vomiting. Patient has no dysuria no hematuria no other complaints - Related Data Home Medications Medication Instructions Recorded Confirmed Furosemide [Lasix] 40 mg PO BID@0700,1300 11/30/13 12/12/21 Spironolactone [Aldactone] 25 mg PO DAILY 11/30/13 12/12/21 Ubidecarenone [Coq-10] 200 mg PO W/SUPPER 01/20/14 12/12/21 Levothyroxine Sodium [Synthroid] 75 mcg PO DAILY 10/20/17 12/12/21 Sacubitril/Valsartan [Entresto 24 1 tab PO BID 01/19/18 12/12/21 mg-26 mg Tablet] allopurinoL [Zyloprim] 100 mg PO HS 01/27/20 12/12/21 Atorvastatin [Lipitor] 20 mg PO DAILY 06/09/20 12/12/21 Metoprolol Succinate [Toprol XL] 200 mg PO DAILY 06/09/20 12/12/21 Albuterol Inhaler [Ventolin Hfa 2 puff INHALATION RT-QID PRN 06/14/21 12/12/21 Inhaler] Fluticasone Nasal [place] [Flonase 1 spr EA NOSTRIL DAILY PRN 06/14/21 12/12/21 Nasal [place]] Rivaroxaban [Xarelto] 15 mg PO HS 06/14/21 12/12/21 Cholecalciferol [Vitamin D3 (25 75 mcg PO W/SUPPER 06/24/21 12/12/21 Mcg = 1000 Iu)] Magnesium Oxide [Mag-Ox] 250 mg PO W/SUPPER 06/24/21 12/12/21 Potassium Gluconate [Potassium 99 mg PO W/SUPPER 06/24/21 12/12/21 Gluconate ER] Psyllium Husk [Metamucil] 0.4 gm PO W/SUPPER 06/24/21 12/12/21 Previous Rx's Medication Instructions Recorded Polyethylene Glycol 3350 [Miralax] 17 gm PO BID PRN #527 gm 12/12/21 Allergies Allergy/AdvReac Type Severity Reaction Status Date / Time adhesive tape Allergy Rash/Hives Verified 12/12/21 10:10 ibuprofen [From Motrin] Allergy Swelling & Verified 12/12/21 10:10 itching on entire body levofloxacin [From Levaquin] Allergy Rash/Hives Verified 12/12/21 10:10 Review of Systems ROS Statement: Those systems with pertinent positive or pertinent negative responses have been documented in the HPI. ROS Other: All systems not noted in ROS Statement are negative. Past Medical History Past Medical History: Memory Impairment, Myocardial Infarction (VT), Thyroid Disorder Additional Past Medical History / Comment(s): hiatal hernia, hx basal skin cancer, hx diverticulitis Last Myocardial Infarction Date:: 04/2012 History of Any Multi-Drug Resistant Organisms: None Reported Past Surgical History: AICD, Bowel Resection, Breast Surgery, Cardiac Ablation, Cholecystectomy, Heart Catheterization, Hysterectomy, Orthopedic Surgery, Tonsillectomy Additional Past Surgical History / Comment(s): bilateral breast reduction 1995, arthroscopic rt knee, partial hysterectomy (bilateral ovaries retained), pacemaker battery replaced October 2018 Past Anesthesia/Blood Transfusion Reactions: No Reported Reaction Additional Past Anesthesia/Blood Transfusion Reaction / Comment(s): No blood transfusions to date (pt had an autolygous transfusion when undergoing bilateral breast reduction). Type of Cardiac Device: Permanent Pacemaker, AICD Device Placement Date:: 2006 (info from pt's med [employer]- [id number],model#[id number]) Past Psychological History: No Psychological Hx Reported Smoking Status: Former smoker Past Alcohol Use History: Occasional Past Drug Use History: None Reported - Past Family History Mother Family Medical History: Cancer Additional Family Medical History / Comment(s): Colon cancer dx at age 74, at age 84. Sister(s) Family Medical History: Cancer, CVA/TIA, Deep Vein Thrombosis (DVT) Additional Family Medical History / Comment(s): pt has 2 sisters: sister #1: at age 79 from stroke complications (also had a hx of blood clots). sister #2: had a cancerous tumor on aortic valve. Son(s) Family Medical History: Deep Vein Thrombosis (DVT) Brother(s) Family Medical History: CVA/TIA, Deep Vein Thrombosis (DVT) Additional Family Medical History / Comment(s): She has 1 brother with a history of stroke and blood clot. Father Family Medical History: Congestive Heart Failure (CHF) General Exam Limitations: no limitations General appearance: alert, in no apparent distress Head exam: Present: atraumatic, normocephalic, normal inspection Eye exam: Present: normal appearance, PERRL, EOMI. Absent: scleral icterus, con junctival injection, periorbital swelling ENT exam: Present: normal exam, normal oropharynx, mucous membranes moist Neck exam: Present: normal inspection, full ROM. Absent: tenderness, meningismus, lymphadenopathy Respiratory exam: Present: normal lung sounds bilaterally. Absent: respiratory distress, wheezes, rales, rhonchi, stridor Cardiovascular Exam: Present: regular rate, normal rhythm, normal heart sounds. Absent: systolic murmur, diastolic murmur, rubs, gallop, clicks GI/Abdominal exam: Present: soft, tenderness (Mild upper and left-sided), normal bowel sounds. Absent: distended, guarding, rebound, rigid Back exam: Absent: CVA tenderness (R), CVA tenderness (L) Course Vital Signs 12/12/21 12/12/21 12/12/21 08:23 09:12 10:18 Temperature 97.9 F Pulse Rate 69 60 61 Respiratory 18 16 16 Rate Blood Pressure 98/53 102/54 106/60 O2 Sat by Pulse 96 92 L 98 Oximetry Medical Decision Making - Medical Decision Making Patient for including labs and urinalysis and CT with no specific findings. Pat ient does have mild constipation. Patient discharged with MiraLAX. Return parameters were discussed. - Lab Data Result diagrams: 12/12/21 08:46 12/12/21 08:46 Lab Results 12/12/21 12/12/21 12/12/21 Range/Units 08:46 08:46 08:46 WBC 8.8 (3.8-10.6) k/uL RBC 3.80 (3.80-5.40) m/uL Hgb 12.2 (11.4-16.0) gm/dL Hct 36.8 (34.0-46.0) % MCV 96.9 (80.0-100.0) fL MCH 32.2 (25.0-35.0) pg MCHC 33.2 (31.0-37.0) g/dL RDW 13.4 (11.5-15.5) % Plt Count 189 (150-450) k/uL MPV 8.8 Neutrophils % 74 % Lymphocytes % 17 % Monocytes % 6 % Eosinophils % 2 % Basophils % 0 % Neutrophils # 6.4 (1.3-7.7) k/uL Lymphocytes # 1.5 (1.0-4.8) k/uL Monocytes # 0.5 (0-1.0) k/uL Eosinophils # 0.1 (0-0.7) k/uL Basophils # 0.0 (0-0.2) k/uL PT 13.7 H (9.0-12.0) sec INR 1.3 H (<1.2) APTT 29.1 (22.0-30.0) sec Sodium (137-145) mmol/L Potassium (3.5-5.1) mmol/L Chloride (98-107) mmol/L Carbon Dioxide (22-30) mmol/L Anion Gap mmol/L BUN (7-17) mg/dL Creatinine (0.52-1.04) mg/dL Est GFR (CKD-EPI)AfAm (>60 ml/min/1.73 sqM) Est GFR (CKD-EPI)NonAf (>60 ml/min/1.73 sqM) Glucose (74-99) mg/dL Plasma Lactic Acid Chris (0.7-2.0) mmol/L Calcium (8.4-10.2) mg/dL Total Bilirubin (0.2-1.3) mg/dL AST (14-36) U/L ALT (4-34) U/L Alkaline Phosphatase (38-126) U/L Total Protein (6.3-8.2) g/dL Albumin (3.5-5.0) g/dL Amylase (30-110) U/L Lipase (23-300) U/L Urine Color Light Yellow Urine Appearance Clear (Clear) Urine pH 7.0 (5.0-8.0) Ur Specific Donovan 1.006 (1.001-1.035) Urine Protein Negative (Negative) Urine Glucose (UA) Negative (Negative) Urine Ketones Negative (Negative) Urine Blood Negative (Negative) Urine Nitrite Negative (Negative) Urine Bilirubin Negative (Negative) Urine Urobilinogen <2.0 (<2.0) mg/dL Ur Leukocyte Esterase Negative (Negative) 12/12/21 12/12/21 Range/Units 08:46 08:46 WBC (3.8-10.6) k/uL RBC (3.80-5.40) m/uL Hgb (11.4-16.0) gm/dL Hct (34.0-46.0) % MCV (80.0-100.0) fL MCH (25.0-35.0) pg MCHC (31.0-37.0) g/dL RDW (11.5-15.5) % Plt Count (150-450) k/uL MPV Neutrophils % % Lymphocytes % % Monocytes % % Eosinophils % % Basophils % % Neutrophils # (1.3-7.7) k/uL Lymphocytes # (1.0-4.8) k/uL Monocytes # (0-1.0) k/uL Eosinophils # (0-0.7) k/uL Basophils # (0-0.2) k/uL PT (9.0-12.0) sec INR (<1.2) APTT (22.0-30.0) sec Sodium 139 (137-145) mmol/L Potassium 4.0 (3.5-5.1) mmol/L Chloride 100 (98-107) mmol/L Carbon Dioxide 30 (22-30) mmol/L Anion Gap 9 mmol/L BUN 29 H (7-17) mg/dL Creatinine 1.18 H (0.52-1.04) mg/dL Est GFR (CKD-EPI)AfAm 51 (>60 ml/min/1.73 sqM) Est GFR (CKD-EPI)NonAf 44 (>60 ml/min/1.73 sqM) Glucose 99 (74-99) mg/dL Plasma Lactic Acid Chris 1.2 (0.7-2.0) mmol/L Calcium 9.1 (8.4-10.2) mg/dL Total Bilirubin 0.9 (0.2-1.3) mg/dL AST 24 (14-36) U/L ALT 18 (4-34) U/L Alkaline Phosphatase 76 (38-126) U/L Total Protein 7.1 (6.3-8.2) g/dL Albumin 4.1 (3.5-5.0) g/dL Amylase 68 (30-110) U/L Lipase 271 (23-300) U/L Urine Color Urine Appearance (Clear) Urine pH (5.0-8.0) Ur Specific Donovan (1.001-1.035) Urine Protein (Negative) Urine Glucose (UA) (Negative) Urine Ketones (Negative) Urine Blood (Negative) Urine Nitrite (Negative) Urine Bilirubin (Negative) Urine Urobilinogen (<2.0) mg/dL Ur Leukocyte Esterase (Negative) Disposition Clinical Impression: Abdominal pain, Constipation Disposition: HOME SELF-CARE Condition: Stable Instructions (If sedation given, give patient instructions): Abdominal Pain (ED) Additional Instructions: Please return to the Emergency Department if symptoms worsen or any other concerns. Prescriptions: Polyethylene Glycol 3350 [Miralax] 17 gm PO BID PRN #527 gm PRN Reason: Constipation Is patient prescribed a controlled substance at d/c from ED?: No Referrals: Kostas Kunz MD [Primary Care Provider] - 1-2 days Time of Disposition: 10:45
== END 2021-12-12 11:08 | disposition home or self-care (01) ==
LOC: EC 08:16
DX: K59.00 Constipation, unspecified (principal); I25.2 Old myocardial infarction; E07.9 Disorder of thyroid, unspecified; Z79.899 Other long term (current) drug therapy; Z87.891 Personal history of nicotine dependence; Z88.6 Allergy status to analgesic agent; Z88.1 Allergy status to other antibiotic agents; Z91.048 Other nonmedicinal substance allergy status
CPT/HCPCS: 36415; 80053; 82150; 83605; 83690; 85025; 85610; 85730; 81003; 74176; 99284; 96374; 96375; 96361; J2270; J2405

== ENCOUNTER → 2022-01-23 | Outpatient (CLI) | payer MEDICARE ==
--- NOTE | 2022-01-24 17:40 | MM ---
Reason for Exam: Screening (asymptomatic). Last screening mammogram was performed 12 month(s) ago. Patient History: Menarche at age 17. First Full-Term at age 23. Hysterectomy at age 43. Postmenopausal. Other cancer, age 67. Breast cancer, right, age 78. Patient used Estrogen for 3 years. 1996, Bilateral Reduction. 02/23/2019, Lumpectomy on the Right side. 02/23/2019, Malignant Core Biopsy on the right side. 12/28/2018, Malignant Core Biopsy on the right side. Prior Study Comparison: 02/23/2019 Right Diagnostic Mammogram, [facility]. 12/21/2019 Bilateral Diagnostic Mammogram, [facility]. 01/22/2021 Bilateral Screening Mammogram, [facility]. Tissue Density: There are scattered fibroglandular densities. Findings: Analyzed By CAD. Postsurgical and posttreatment changes right breast. Grouped punctate microcalcifications far posterior right MLO view remain unchanged. A generator device projects over the left chest and obscures a large portion of the posterior superior left breast. A couple scattered benign oil cyst calcifications are noted. Chronic nodularity lateral left breast. No significant change from prior exams. Overall Assessment: Benign, BI-RAD 2 Management: Screening Mammogram of both breasts in 1 year. 1. Patient should continue monthly self breast exams. 2. A clinical breast exam by your physician is recommended on an annual basis. 3. This exam should not preclude additional follow-up of suspicious palpable abnormalities. Electronically signed and approved by: Parvin Jerry M.D. Radiologist
== END | disposition home or self-care (01) ==
LOC: RADMAMWWP 09:41
PROVIDERS: ATTEND Surgery
DX: Z12.31 Encounter for screening mammogram for malignant neoplasm of breast (principal); Z78.0 Asymptomatic menopausal state; Z85.3 Personal history of malignant neoplasm of breast
CPT/HCPCS: 77063; 77067

== ENCOUNTER → 2022-03-28 | Outpatient (CLI) | payer MEDICARE ==
[2022-03-28 12:18] VITALS: BP 91/57; PULSE 62; RESP 16; TEMP 97.5
--- NOTE | 2022-03-28 12:27 | P.PN ---
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 She was on a blood thinner and this was stopped. The patient had a mammogram done on 12-14-18. This revealed a 7 mm microlobulated mass in the upper outer quadrant in the right breast. Subsequently an ultrasound was performed and the ultrasound confirmed this area. She underwent ultrasound-guided core biopsy of the right breast on 7118. In addition to the 7 mm mass at the 10 o'clock position of the right breast there were 2 lesions 1 at 4 mm and 1-2 mm seen 7 mm apart from the index mass. The index mass was sampled and this was positive for invasive ductal carcinoma grade 1. This is ER/AK positive and HER-2 2 negative. She underwent lumpectomy and SNB on 02-23-19. Pathology reveled a [id number] ER/AK +, Her 2-, G1; Stage 1A; She did not have radiation therapy. Patient is doing well at this time, she has some persistent mild swelling under the arm. This is not painful for her. The patient did not have any radiation therapy. She was taking an antiestrogen medication, Anastrazole, patient states that she experienced joint pain, diarrhea, and hair thinning. She was therefore switched to exemestane the symptoms continued and she therefore opted to stop all anti-hormone therapy. She has been off this therapy since approximately 5-6 months. Do not have any radiation therapy, she did not have any chemotherapy. The patient has no complaints at this time related to her breast. The patient had a bilateral mammogram on 01-22-21. This was benign BIRADS 2 and follow-up diagnostic mammogram of the breast in 1 year was recommended. The patient presents for an examination and surveillance related to her breast cancer. 10-19-21 At this time she has no complaints related to her breast. She has no complaints of lumps masses or nodules. She is not complaining of any nipple discharge or skin changes. She has had chest wall basal cell carcinomas many years ago. 03-28-22 Bilateral mammogram on 01-23-22; BIRAD 2. At this time she is not complaining of any new lumps masses or nodules of concern in either breast. She has not had any radiation therapy, and she has declined hormone therapy secondary to symptoms. The symptoms of joint pain, diarrhea, and here pending have improved since she has been off the antihormone therapy. Family history: 1. Mother: Colon cancer 2. Sister.: Skin cancer 3. Patient: Skin cancer, chest wall Hormonal history: Menarche: 17 , one miscarriage, first live at 23, breast fed Yes Menopause: Hysterectomy at 42 did not take ovaries this was done for bleeding control pills: 15 years Hormones: Negative Past surgical history: 1. Cholecystectomy 2. Pacemaker 3. Breast reduction 4. Hernia surgery 5. Colon resection 6. Tonsillectomy 7. Hysterectomy 8. Pacemaker 9. Right breast lumpectomy/sentinel node biopsy 02-23-19 Past medical history: 1. Atrial fibrillation pacemaker (Xeralto) 2. [place] 2010 3. DVT 2017 4. diverticular disease 5. Decreased hearing Social history: Smoke: One pack per week for 15 years Stopped smoking in 1995 Alcohol: Twice a month Drugs: Negative - Constitutional Constitutional: Denies chills, Denies fever - EENT Comment: wears glasses, cataracts Ears: left: decreased hearing (Right deaf, heariong aid left ear), deny: tinnitus Ears, nose, mouth and throat: Denies headache, Denies sore throat - Breasts Breasts: bilateral: as per HPI - Cardiovascular Cardiovascular: Reports high blood pressure, Denies chest pain, Denies shortness of breath - Respiratory Comment: former smoker - Gastrointestinal Gastrointestinal: Denies abdominal pain, Denies diarrhea, Denies nausea, Denies vomiting, diverticular disease - Genitourinary (Female) Genitourinary: Denies dysuria, Denies hematuria - Menstruation Menstruation: Reports post hysterectomy - Musculoskeletal Comment: arthritis - Integumentary Integumentary: Denies pruritus, Denies rash - Neurological Neurological: Denies numbness, Denies weakness - Psychiatric Psychiatric: Denies anxiety, Denies depression - Endocrine Comment: hypothyroid - Hematologic/Lymphatic Comment: none - Allergic/Immunologic Allergic/Immunologic: Reports seasonal allergies Objective - Vital Signs Vital signs: Vital Signs Temp 97.5 F L 03/28/22 12:14 Pulse 62 03/28/22 12:14 Resp 16 03/28/22 12:14 BP 91/57 03/28/22 12:14 Pulse Ox 94 L 03/28/22 12:14 FiO2 Intake & Output 03/27/22 03/28/22 03/28/22 18:59 06:59 18:59 Weight 83.915 kg - Constitutional General appearance: Present: cooperative - EENT Eyes: Present: EOMI - Neck Neck: Present: normal ROM - Respiratory Respiratory: bilateral: CTA - Cardiovascular Heart sounds: normal: S1, S2 - Integumentary Integumentary: Present: normal turgor - Musculoskeletal Musculoskeletal: Present: gait normal - Psychiatric Psychiatric: Present: A&O x's 3, appropriate affect, intact judgment & insight - Additional findings Additional findings: Bresat Exam: BRA: 36C Inspection: Well-healed scars bilaterally from prior reduction mammoplasty Palpation: Right breast: Multiple positional exam fibrocystic changes no discrete dominant masses or nodules of concern, no evidence of any recurrent cancer Right axilla: No adenopathy of concern Left breast: Multiple positional exam fibrocystic changes no dominant masses or nodules of concern Left axilla: No adenopathy of concern Assessment and Plan Assessment: Impression: Stage IA invasive ductal cancer no evidence of recurrence Plan: Repeat bilateral mammogram in December 2022 with physician exam at that time follow up in August for examination CC: Dr. Kunz
== END | disposition home or self-care (01) ==
LOC: WWCWWP 10:37
PROVIDERS: ATTEND Surgery
DX: Z53.9 Procedure and treatment not carried out, unspecified reason (principal)

== ENCOUNTER 2022-05-07 09:13 | Day surgery (SDC) | payer MEDICARE ==
[~2022-05-07 09:13] MED LIST changes: +ACETAMINOPHEN TAB 500 MG TAB PO PRN; +GABAPENTIN 300 MG CAP PO PRN; -LACTATED RINGERS 1,000 ML IV SCH; -LIDOCAINE 1% (10MG/ML) FOR IV START INTRADERMA PRN; +MELOXICAM 7.5 MG TAB PO PRN; -PROPOFOL 10 MG/ML 20 ML VIAL IV ONE; +TRANEXAMIC ACID IN NACL,ISO-OS 1,000 MG in SALINE 1 100ML.BAG IVPB PRN
[2022-05-07] MEDS ORDERED: LIDOCAINE 1% (10MG/ML) FOR IV START INTRADERMA PRN (10:21)
[2022-05-07] MEDS ORDERED: ONDANSETRON 4 MG/2 ML VIAL IVP ONE (10:21)
[2022-05-07] MEDS ORDERED: HYDROmorphone 0.5 MG/0.5 ML SYRINGE IVP PRN ×4 (10:21→11:30)
[2022-05-07] MEDS: LACTATED RINGERS 1,000 ML IV SCH (10:45)
[2022-05-07] MEDS ORDERED: DEXAMETHASONE SOD PHOSPHATE 4 MG/ML 1 ML VIAL IVP ONE (10:59)
[2022-05-07] MEDS ORDERED: MIDAZOLAM 2 MG/2 ML VIAL IVP ONE (11:12)
[2022-05-07] MEDS ORDERED: NA PHOS,M-B/NA PHOS,DI-BA 133 ML ENEMA RECTAL PRN (11:30)
[2022-05-07] MEDS ORDERED: NALOXONE 0.4 MG/ML 1 ML VIAL IV PRN (11:30)
[2022-05-07] MEDS ORDERED: bisacodyL 10 MG SUPP RECTAL PRN (11:30)
[2022-05-07] MEDS ORDERED: ONDANSETRON 4 MG/2 ML VIAL IVP PRN (11:30)
[2022-05-07] MEDS ORDERED: MAGNESIUM HYDROXIDE 2,400 MG/10 ML CUP PO PRN (11:30)
[2022-05-07] MEDS ORDERED: HYDROcodone/APAP 7.5-325MG 1 EACH TAB PO PRN (11:33)
[2022-05-07] MEDS ORDERED: ROPIVACAINE 0.2%-NS ON-Q PUMP 1,090 MG, EMPTY PAIN BALL 1 EACH MISCELLANE PRN (12:05)
--- NOTE | 2022-05-07 12:10 | P.ANPRN ---
Procedure Note - Anesthesia - Nerve Block Performed Right Adductor Canal Infusion Time Out Performed: Yes (1111) Date of Procedure: 05/07/22 Procedure Start Time: : Procedure Stop Time: Location of Patient: PreOp Indication: Acute Post-Operative Pain, Dx/Pain Location (Right knee), Requested by Surgeon Specifically requested for management of pain by DrWillam: Hunter Agustin Sedation Type: Sedate with meaningful contact maintained Preparation: Sterile Prep, Sterile Dressing Position: Supine Catheter: Indwelling Needle Types: Pajunk Needle Gauge: 18 Ultrasound used to visualize needle placement: Yes Ultrasound used to observe medication spread: Yes Injectate: 0.5% Ropivacaine (see comment for volume) (20 cc) Blood Aspirated: No Pain Paresthesia on Injection Noted: No Resistance on Injection: Normal Image Stored and Saved: Yes Events: Uneventful and Well Tolerated Right iPack Single Time Out Performed: Yes Date of Procedure: 05/07/22 (\) Indication: Acute Post-Operative Pain, Dx/Pain Location (right knee), Requested by Surgeon Specifically requested for management of pain by DrWillam: Hunter Agustin Sedation Type: Sedate with meaningful contact maintained Position: Left Lateral Catheter: None Needle Types: Pajunk Needle Gauge: 21 Ultrasound used to visualize needle placement: Yes Ultrasound used to observe medication spread: Yes Injectate: 0.5% Ropivacaine (see comment for volume) (20 cc) Blood Aspirated: No Pain Paresthesia on Injection Noted: No Resistance on Injection: Normal Image Stored and Saved: Yes Events: Uneventful and Well Tolerated
[2022-05-07] MEDS ORDERED: PROPOFOL 10 MG/ML 20 ML VIAL IV ONE (13:46)
[2022-05-07] MEDS ORDERED: diphenhydrAMINE 50 MG/ML 1 ML VIAL ONE (13:46)
[2022-05-07] MEDS ORDERED: MIDAZOLAM 2 MG/2 ML VIAL ONE (13:46)
[2022-05-07] MEDS ORDERED: TRANEXAMIC ACID IN NACL,ISO-OS 1,000 MG/100 ML BAG ONE (13:46)
[2022-05-07] MEDS ORDERED: ROPIVACAINE 5 MG/ML 30 ML VIAL ONE (13:46)
[2022-05-07] MEDS ORDERED: ceFAZolin 1,000 MG in SODIUM CHLORIDE 0.9% 1,000 ML IRRIGATION ONE (13:50)
--- NOTE | 2022-05-07 15:02 | P.OP ---
Date of Procedure: 05/07/22 Preoperative Diagnosis: Severe osteoarthritis right knee Postoperative Diagnosis: Severe osteoarthritis right knee Procedure(s) Performed: Right total knee arthroplasty Implants: [employer] Journey II CR Oxinium cruciate retaining femoral component size 5, right [employer] Journey nonporous tibial baseplate size 4, right [employer] Journey II, XLPE Deep Dished articular insert, size 13 mm, Size 3-4, right [employer] Journey Sarah II resurfacing patellar component, oval, 29 mm All components were cemented using Palacos R bone cement The articulation is Oxinium on polyethylene Anesthesia: spinal Surgeon: Hunter Agustin Immersion Metal Cleaner #1: Nissa Cabrera Estimated Blood Loss (ml): 200 Pathology: other (Bone and cartilage) Condition: stable Disposition: PACU Indications for Procedure: After failure of conservative treatment we discussed the surgical and nonsurgical treatment options at length. Patient wishes to proceed with a total knee arthroplasty. Complications specific to this procedure were discussed at length, including but not limited to infection, bleeding, stiffness, and nerve injury. Covid-19 was also discussed at length with the patient, and they are aware of the current policies and procedures. The patient was given the option of delaying surgery, but they elect to proceed knowing these risks. Patient is aware of all these complications and informed consent was obtained Operative Findings: The operative findings are consistent with severe osteoarthritis of the right knee Description of Procedure: Patient was seen in the preoperative area and the consent was reviewed and the operative site was marked with a skin marker. The patient verified the procedure and the operative site. An adductor canal pain catheter and an iPACK block was placed by anesthesia in the preoperative area. The patient was then brought to the operating room and given preoperative antibiotics intravenously. A gram of transexamic acid was given intravenously. A spinal anesthetic was administered by the anesthesia department. A tourniquet was placed on the upper thigh and the lower extremity was prepped with chlorhexidine and draped in usual sterile fashion. A universal timeout was then performed which confirmed the patient's name, surgical site, ALLERGIES, and consent. A standard anterior midline approach to the knee was performed. The skin and subcutaneous tissue were sharply dissected down to the patellar tendon. A medial parapatellar arthrotomy was then performed. The knee was then extended, the patellar was everted, and the knee was again flexed. The infra-patellar fat pad was removed in order to enhance exposure. The anterior horns of both menisci were excised, and a release was performed to the posterior medial aspect of the knee. On gross visual inspection, there was complete loss of articular cartilage in the medial and patellofemoral joint spaces. There was also significant cartilage damage in the lateral compartment. There were multiple periarticular osteophytes globally about the knee which were then removed with a Ronguer. The femoral canal was then opened with the 9.5 mm intramedullary drill. The 8 mm intramedullary evan was then inserted into the femoral canal with the distal femoral cutting guide set for 5 of valgus. The distal femoral cutting block was then pinned in place. The intramedullary evan was then removed, and the distal femur was then cut. The cutting block was then removed and the cut was checked for symmetry. The resected bone was then measured to c onfirm the appropriate distal femoral resection. Next, the sizing guide was then placed and set for 3 external rotation based off of the epicondylar axis and Whitesides line. Pins were then placed and the drill holes, and the femur was sized with the sizing stylus. The pins were then removed, and the sizing guide was then removed. The spikes of the femoral block was then placed into the predrilled holes, and malleted into place. Two 45 mm pins were then placed into the fixation holes on the cutting block. An ameya wing was then used to ensure there would be no notching with the anterior cut. The anterior condyles were cut without notching. The anterior chord cut was then performed, followed by the posterior cut, posterior chamfer cut, and the anterior chamfer cut. The collateral ligaments were protected during the entire process. The cutting block was then removed. Any remaining bone and osteophytes were removed from the femur with a Ronguer. The femoral canal was plugged with autologous bone. Attention was then directed to the tibia. The remaining ACL was removed with a Ronguer, and the tibia was then gently subluxed forward with a large bent knee retractor. Any remaining menisci were excised. The posterior lateral corner was cauterized in order to coagulate the lateral geniculate artery. The extra medullary tibial cutting guide was then placed, set for the appropriate rotation, slope, and depth of resection. The proximal tibia cutting guide was then pinned in place. Proximal tibia was then cut and sized. The femoral trial was placed. A narrow saw blade was then used to remove the anterior intracondylar femoral bone. The CR notch trial was then placed. The tibial trial was placed with the appropriate-sized insert. The knee was able to fully extend and flex to 130 and was stable throughout all range of motion. The knee was then extended and the patella was everted. Patella was then measured, and then using an osteotomy guide, the patella was cut at the appropriate level. The patella was then measured and drilled and the patella trial was then placed. The knee was then taken through range of motion with the patella trial and the patella tracked normally using the no thumbs technique. The knee was then extended patella trial was then removed and the patella was everted. Knee was then flexed and lug holes were drilled through the femoral trial and the femoral trial was then removed. The tibial was then re-exposed, and the tibial broach guide was then pinned in place after it was set for the appropriate rotation to allow for the most coverage without overhang. The tibia was then reamed and broached. The cut surfaces of bone were then irrigated with pulsatile lavage. The knee was also irrigated with Irrisept solution. The components were then opened, the cement was mixed, and the components were then cemented in place. The cement was allowed to harden with the knee in full extension. After the cemented hardened, the tourniquet was released and hemostasis was obtained. A second gram of transexamic acid was given intravenously. The knee was again irrigated. The knee was again taken through range of motion and found to be stable throughout all range of motion of 0-130, and the patella tracked normally. The fascia was then closed with 0 Vicryl followed by #2 strata fix suture. The subcutaneous tissue was closed with 3-0 Vicryl and 3-0 strata fix. Exofin glue was used for the skin and placed with the knee in flexion. After the glue had dried, and Optafoam silver impregnated dressing was applied. The patient was then transferred to recovery room in stable condition. The blood and plasma laboratory assistant MAXIMINO Tuttle was required due the complexity surgery and the need for a skilled sales service assistant. She assisted in positioning, draping, retraction, and closure of the wound.
[2022-05-07] MEDS ORDERED: LACTATED RINGERS 1,000 ML IV ONE (15:13)
--- NOTE | 2022-05-07 16:05 | XR ---
EXAMINATION TYPE: XR knee limited RT DATE OF EXAM: 05/07/2022 COMPARISON: NONE TECHNIQUE: Two views submitted HISTORY: Post op FINDINGS: There is a prosthetic knee in near anatomic alignment. There is soft tissue edema and emphysema. IMPRESSION: 1. Postoperative change. Appears in near-anatomic alignment
[2022-05-07] MEDS: SODIUM CHLORIDE 0.9% 1,000 ML IV SCH (16:16)
[2022-05-07] MEDS: HYDROcodone/APAP 7.5-325MG 1 EACH TAB PO PRN (18:42)
[2022-05-07] MEDS ORDERED: FLUTICASONE 50MCG/SPRAY NASAL 16GM EA NOSTRIL PRN (19:12)
[2022-05-07] MEDS ORDERED: ALBUTEROL NEBULIZED 2.5 MG/3 ML INHALATION PRN (19:12)
[2022-05-07] MEDS ORDERED: SENNOSIDES-DOCUSATE SODIUM 1 EACH TAB PO SCH (21:00)
[2022-05-07] MEDS ORDERED: allopurinoL 100 MG TAB PO SCH (21:00)
[2022-05-07] MEDS: SACUBITRIL/VALSARTAN 24 MG-26 MG TABLET PO SCH (21:29)
[2022-05-08] MEDS: HYDROcodone/APAP 7.5-325MG 1 EACH TAB PO PRN ×2 (00:51→07:39)
[2022-05-08] MEDS: SODIUM CHLORIDE 0.9% 1,000 ML IV SCH (00:52)
[2022-05-08] MEDS ORDERED: LEVOTHYROXINE 75 MCG TAB PO SCH (06:30)
--- NOTE | 2022-05-08 07:36 | P.DS ---
Providers Expected date of discharge: 05/08/22 Attending physician: Hunter Agustin Consults: 05/07/22 11:30 Consult Physician Routine Consulting Provider: Kostas Kunz Consult Reason/Comments: medical management Do you want consulting provider notified?: Yes Primary care physician: Kostas Kunz - Discharge Diagnosis(es) (1) Primary localized osteoarthritis of right knee Current Visit: Yes Status: Acute (2) Status post total right knee replacement Current Visit: Yes Status: Acute Hospital Course: This is a 81-year-old female who was last seen with complaint of continued right knee pain. The patient has a known history of degenerative arthritis of the right knee and presents to discuss surgical options. After discussion and consideration the patient elects to proceed with total right knee arthroplasty. The patient is seen preoperatively by her primary care physician and cleared for surgery. The patient is admitted to [facility] for total right knee arthroplasty. The procedures performed without complication or sequelae. Patient is doing well postoperatively. Vital signs are stable at discharge. Labs are stable at discharge. the patient is ambulating well with walker with minimal assistance. The patient is discharged to home on postop day #1 pending medical clearance. Please see orders and refer to the med rec for accurate list of medications. Patient Condition at Discharge: Good Plan - Discharge Summary Discharge Rx Participant: Yes New Discharge Prescriptions: New HYDROcodone/APAP 7.5-325MG [[place] 7.5-325] 1 - 2 tab PO Q6H PRN #32 tab PRN Reason: Pain Sennosides [Senokot] 2 tab PO DAILY PRN #60 tablet PRN Reason: Constipation No Action Furosemide [Lasix] 40 mg PO BID@0700,1300 Spironolactone [Aldactone] 25 mg PO DAILY Ubidecarenone [Coq-10] 200 mg PO W/SUPPER Levothyroxine Sodium [Synthroid] 75 mcg PO DAILY Sacubitril/Valsartan [Entresto 24 mg-26 mg Tablet] 1 tab PO BID allopurinoL [Zyloprim] 100 mg PO HS Metoprolol Succinate [Toprol XL] 200 mg PO DAILY Atorvastatin [Lipitor] 20 mg PO DAILY Rivaroxaban [Xarelto] 15 mg PO HS Fluticasone Nasal [place] [Flonase Nasal [place]] 1 spr EA NOSTRIL DAILY PRN PRN Reason: Allergy Symptoms Cholecalciferol [Vitamin D3 (25 Mcg = 1000 Iu)] 75 mcg PO W/SUPPER Albuterol Inhaler [Ventolin Hfa Inhaler] 2 puff INHALATION RT-QID PRN PRN Reason: Shortness Of Breath Magnesium Oxide [Mag-Ox] 250 mg PO W/SUPPER Potassium Gluconate [Potassium Gluconate ER] 99 mg PO W/SUPPER Discharge Medication List Furosemide [Lasix] 40 mg PO BID@0700,1300 11/30/13 [History] Spironolactone [Aldactone] 25 mg PO DAILY 11/30/13 [History] Ubidecarenone [Coq-10] 200 mg PO W/SUPPER 01/20/14 [History] Levothyroxine Sodium [Synthroid] 75 mcg PO DAILY 10/20/17 [History] Sacubitril/Valsartan [Entresto 24 mg-26 mg Tablet] 1 tab PO BID 01/19/18 [History] allopurinoL [Zyloprim] 100 mg PO HS 01/27/20 [History] Atorvastatin [Lipitor] 20 mg PO DAILY 06/09/20 [History] Metoprolol Succinate [Toprol XL] 200 mg PO DAILY 06/09/20 [History] Albuterol Inhaler [Ventolin Hfa Inhaler] 2 puff INHALATION RT-QID PRN 06/14/21 [History] Fluticasone Nasal [place] [Flonase Nasal [place]] 1 spr EA NOSTRIL DAILY PRN 06/14/21 [History] Rivaroxaban [Xarelto] 15 mg PO HS 06/14/21 [History] Cholecalciferol [Vitamin D3 (25 Mcg = 1000 Iu)] 75 mcg PO W/SUPPER 06/24/21 [History] Magnesium Oxide [Mag-Ox] 250 mg PO W/SUPPER 06/24/21 [History] Potassium Gluconate [Potassium Gluconate ER] 99 mg PO W/SUPPER 06/24/21 [History] HYDROcodone/APAP 7.5-325MG [[place] 7.5-325] 1 - 2 tab PO Q6H PRN #32 tab 05/07/22 [Rx] Sennosides [Senokot] 2 tab PO DAILY PRN #60 tablet 05/07/22 [Rx] Follow up Appointment(s)/Referral(s): [facility] [NON-STAFF] - 1-2 Days Hunter Agustin DO [Doctor of Osteopathic Medicine] - 2 Weeks Activity/Diet/Wound Care/Special Instructions: Weightbearing as tolerated with a walker. CPM 5-6h daily as tolerated. Leave dressing intact. Dressing may be removed by home care nurse or by patient in 7 days. Then change dressing twice daily until follow up. May shower with initial dressing intact and after removal. If dressing become saturated, please remove. Recommend use of compression stockings daily until follow up to help prevent swelling and blood clots. May remove at night before sleeping. Please resume Xarelto. Please follow up with [facility] and call with any questions or concerns, . Discharge Disposition: HOME WITH HOME HEALTH SERVICES
--- NOTE | 2022-05-08 07:57 | P.PN ---
Progress Note - Text Progress Note Date: 05/08/22 Postoperative day # 1 status post total knee arthroplasty, on adductor canal perineural catheter placed for postoperative analgesia. Ropivacaine 0.2% 8 mL per hour through ON-Q pump continuous infusion. Pain is well controlled. On visual analog scale 4/10 Patient is taking PRN oral pain medications. Catheter site: Looks Ok. There is no erythema or tenderness. Continue with the current pain management plan and will follow.
[2022-05-08] MEDS: SACUBITRIL/VALSARTAN 24 MG-26 MG TABLET PO SCH (08:23)
[2022-05-08 08:34] VITALS: BP 94/59; PULSE 62; RESP 17; TEMP 98
[2022-05-08] MEDS ORDERED: ATORVASTATIN 20 MG TAB PO SCH (09:00)
[2022-05-08] MEDS ORDERED: SPIRONOLACTONE 25 MG TAB PO SCH (09:00)
[2022-05-08] MEDS ORDERED: METOPROLOL SUCCINATE (ER) 100 MG TAB.ER.24H PO SCH (09:00)
--- NOTE | 2022-05-08 09:16 | P.CONS ---
History of Present Illness - Reason for Consult Consult date: 05/07/22 Medical management Requesting physician: Hunter Agustin - Chief Complaint S/P Right Total Knee replacement - History of Present Illness HISTORY OF PRESENT ILLNESS: This is a 81-year-old female with a previous medical history significant for hypertension and hypertensive cardiovascular disease, hyperlipidemia, nonischemic cardiomyopathy status post biventricular AICD/permanent pacemaker, paroxysmal atrial fibrillation, gout, malignant neoplasm of the right breast, hypothyroidism. Patient has been brought in on Medicare Dr. Agustin status post right total knee arthroplasty. Patient is seen on postop day #0. She has had no postop complications. Patient has been hemodynamically stable. Q-pump is in place for pain control, patient utilizing incentive spirometry. REVIEW OF SYSTEMS: Constitutional: No documented fever, no chills, no night sweats. No weight change. No weakness, fatigue or lethargy. No daytime sleepiness. HEENT: No headache. No blurred vision or double vision, no loss of vision. No loss of Hearing, no ringing in the ears, no dizziness. No nasal drainage or congestion. No epistaxis. No sore throat. Lungs: Patient denies shortness of breath, no cough, no sputum production. No wheezing. Reports dyspnea with activity. Cardiovascular: positive for chest pain, positive for lower extremity edema. No palpitations. No paroxysmal nocturnal dyspnea. No orthopnea. No lightheadedness or dizziness. No syncopal episodes. Abdominal: Denies abdominal pain. No nausea, vomiting. No diarrhea. No constipation. No bloody or tarry stools reports loss of appetite. Genitourinary: No dysuria, increased frequency, urgency. No urinary retention. Musculoskeletal: No myalgias. No muscle weakness, no gait dysfunction, no frequ ent falls. No back pain. No neck pain. Integumentary: No wounds, no lesions. No rash or pruritus. No unusual bruising. No change in hair or nails. Neurologic: No aphasia. No facial droop. No change in mentation. No head injury. No headache. No paralysis. No paresthesia. Psychiatric: No depression. No anxiety. No mood swings. Endocrine: No abnormal blood sugars. No weight change. PAST MEDICAL HISTORY: Hypertension and hypertensive cardiovascular disease. Hyperlipidemia. Nonischemic cardiomyopathy status post biventricular pacemaker. Paroxysmal atrial fibrillation. Gout. History of right breast cancer . Hypothyroidism. PAST SURGICAL HISTORY: Biventricular AICD/pacemaker Generator change 2013. Breast reduction surgery Right lumpectomy for breast cancer Left heart catheterization 2011 that showed 30% of 3 vessels. Cardiac ablation. Cholecystectomy. Hysterectomy. Right arthroscopic knee surgery Tonsillectomy. Colonoscopy SOCIAL HISTORY: Patient used to smoke about a pack every day she smoked for many years and quit more than 20 years ago, she drinks occasionally she denies any drug use or abuse. FAMILY HISTORY: Father at age of 65 from CAD had a permanent pacemaker, mother at age of 82 from colon cancer with colostomy patient has one brother who at the age of 75 from CVA and CAD patient has 2 sisters one from CVA and the other one is alive with paroxysmal atrial fibrillation and diabetes mellitus type 2, patient has one son with atrial flutter and one daughter with atrial flutter as well. PHYSICAL EXAMINATION: General: 81-year-old female laying down in bed in no apparent distress. HEENT: Head is atraumatic, normocephalic, pupils were equal round reactive to light and recommendation, extraocular muscle movement were intact, sclera nonicteric, conjunctivae were pale, mucous membranes of the mouth are somewhat dry. Neck: Supple, no JVP, normal carotid upstroke bilaterally, no lymphadenopathy. Chest: Decreased breath sounds at the bases, no rhonchi, no expiratory wheezes, no chest wall tenderness, no intercostal retractions. Heart: First heart sound is normal, second heart sounds normal, AICD in the left upper precordium Abdomen: Soft, nontender, nondistended, positive bowel sounds. Extremities: There is no edema no calf tenderness DP +2 bilaterally. Dressing to right knee. Lamin hose and SCDs in place. Neurologic examination: Patient is awake alert and oriented X3, cranial nerves II-12 appear grossly intact, muscle power were 5 out of 5 in upper extremities and 5 out of 5 in bilateral lower extremities, deep tendon reflexes normal bilaterally. ASSESSMENT AND PLAN: 1. Osteoarthritis status post right total knee arthroplasty, postop day 0. Continue current pain management, PT and OT per orthopedics, incentive sp irometry to reduce incidence of atelectasis and hospital-acquired pneumonia. Continue patient on Xarelto for DVT prophylaxis. 2. Nonischemic cardiomyopathy post biventricular AICD. Continue patient on metoprolol succinate 200 mg orally once every day, continue patient on spironolactone 25 mg orally once every day, continue Lasix 40 mg orally twice every day continue patient on Entresto 24-26 mg orally bid. 3. Paroxysmal atrial fibrillation. Patient to continue on Xarelto 15 mg at bedtime, metoprolol succinate 200 mg daily. 4. Hypertension and hypertensive cardiovascular disease. Continue metoprolol ER 200 mg orally once every day, continue Entrestor 24-26 mg orally twice every day. 5. Hyperlipidemia. Continue atorvastatin 20 mg orally once every day. 6. Hypothyroidism. Continue patient on Synthroid 75 g orally once every day. 7. History of diverticulosis with Diverticulitis in the past stable at this time. Dr. Agustin, thank you kindly for this consultation. We will be happy to follow along with you during this hospitalization. Past Medical History Past Medical History: Cancer, Heart Failure, Deep Vein Thrombosis (DVT), Hyperlipidemia, Memory Impairment, Myocardial Infarction ([place]), Osteoarthritis (OA), Thyroid Disorder Additional Past Medical History / Comment(s): hiatal hernia, hx basal skin cancer, hx diverticulitis, hx. breast cancer 3 yrs. ago-had surg., had DVT leg 3 yrs. ago Last Myocardial Infarction Date:: 04/2012 History of Any Multi-Drug Resistant Organisms: None Reported Past Surgical History: AICD, Bowel Resection, Breast Surgery, Cardiac Ablation, Cholecystectomy, Heart Catheterization, Hysterectomy, Orthopedic Surgery, Tonsillectomy Additional Past Surgical History / Comment(s): bilateral breast reduction 1995, arthroscopic rt knee, partial hysterectomy (bilateral ovaries retained), pacemaker battery replaced October 2018, right breast lumpectomy, TRK 05/07/22 Past Anesthesia/Blood Transfusion Reactions: No Reported Reaction Additional Past Anesthesia/Blood Transfusion Reaction / Comm: No blood transfusions to date (pt had an autolygous transfusion when undergoing bilateral breast reduction). Type of Cardiac Device: Permanent Pacemaker, AICD Device Placement Date:: 2006 (info from pt's [employer] card [employer]- [id number],model#[id number]) Past Psychological History: No Psychological Hx Reported Smoking Status: Former smoker Past Alcohol Use History: Occasional Additional Past Alcohol Use History / Comment(s): smoked for 20 years 1 pack/wk quit 1995 Past Drug Use History: None Reported - Past Family History Mother Family Medical History: Cancer Additional Family Medical History / Comment(s): Colon cancer dx at age 74, at age 84. Sister(s) Family Medical History: Cancer, CVA/TIA, Deep Vein Thrombosis (DVT) Additional Family Medical History / Comment(s): pt has 2 sisters: sister #1: at age 79 from stroke complications (also had a hx of blood clots). sister #2: had a cancerous tumor on aortic valve. Son(s) Family Medical History: Deep Vein Thrombosis (DVT) Brother(s) Family Medical History: CVA/TIA, Deep Vein Thrombosis (DVT) Additional Family Medical History / Comment(s): She has 1 brother with a history of stroke and blood clot. Father Family Medical History: Congestive Heart Failure (CHF) Medications and Allergies Home Medications Medication Instructions Recorded Confirmed Type Furosemide [Lasix] 40 mg PO BID@0700,1300 11/30/13 05/07/22 History Spironolactone [Aldactone] 25 mg PO DAILY 11/30/13 05/07/22 History Ubidecarenone [Coq-10] 200 mg PO W/SUPPER 01/20/14 05/07/22 History Levothyroxine Sodium [Synthroid] 75 mcg PO DAILY 10/20/17 05/07/22 History Sacubitril/Valsartan [Entresto 24 1 tab PO BID 01/19/18 05/07/22 History mg-26 mg Tablet] allopurinoL [Zyloprim] 100 mg PO HS 01/27/20 05/07/22 History Atorvastatin [Lipitor] 20 mg PO DAILY 06/09/20 05/07/22 History Metoprolol Succinate [Toprol XL] 200 mg PO DAILY 06/09/20 05/07/22 History Albuterol Inhaler [Ventolin Hfa 2 puff INHALATION RT-QID PRN 06/14/21 05/07/22 History Inhaler] Fluticasone Nasal [place] [Flonase 1 spr EA NOSTRIL DAILY PRN 06/14/21 05/07/22 History Nasal [place]] Rivaroxaban [Xarelto] 15 mg PO HS 06/14/21 05/07/22 History Cholecalciferol [Vitamin D3 (25 75 mcg PO W/SUPPER 06/24/21 05/07/22 History Mcg = 1000 Iu)] Magnesium Oxide [Mag-Ox] 250 mg PO W/SUPPER 06/24/21 05/07/22 History Potassium Gluconate [Potassium 99 mg PO W/SUPPER 06/24/21 05/07/22 History Gluconate ER] HYDROcodone/APAP 7.5-325MG [[place] 1 - 2 tab PO Q6H PRN #32 tab 05/07/22 Rx 7.5-325] Sennosides [Senokot] 2 tab PO DAILY PRN #60 tablet 05/07/22 Rx Allergies Allergy/AdvReac Type Severity Reaction Status Date / Time adhesive tape Allergy Rash/Hives Verified 05/07/22 10:30 ibuprofen [From Motrin] Allergy Swelling & Verified 05/07/22 10:30 itching on entire body levofloxacin [From Levaquin] Allergy Rash/Hives Verified 05/07/22 10:30 Physical Exam Vitals: Vital Signs Temp Pulse Pulse Resp BP Pulse Ox 05/07/22 18:42 60 106/57 96 05/07/22 18:28 60 102/59 99 05/07/22 18:13 60 102/59 100 05/07/22 17:58 62 108/61 100 05/07/22 17:43 60 119/59 100 05/07/22 17:26 59 L 113/81 99 05/07/22 17:11 60 101/74 98 05/07/22 16:57 61 107/58 97 05/07/22 16:46 60 16 122/67 94 L 05/07/22 16:31 59 L 16 114/66 94 L 05/07/22 16:12 60 16 115/63 95 05/07/22 15:57 59 L 16 120/64 100 05/07/22 15:42 59 L 16 111/74 100 05/07/22 15:27 97 F L 59 L 16 97 05/07/22 11:34 65 16 103/56 100 05/07/22 10:51 97.1 F L 72 16 120/61 100 Intake and Output 05/07/22 05/07/22 05/07/22 06:59 14:59 22:59 Intake Total 1051 440 Output Total 200 Balance 1051 240 Intake: IV 1051 200 Oral 240 Output: Estimated Blood Loss 200 Other: Weight 88 kg 88 kg
[2022-05-08] MEDS: LACTATED RINGERS 1,000 ML IV SCH (10:36)
[2022-05-08 11:30] LABS: Basophils # (A) 0.02 X 10*3/uL (0.00-0.10); Basophils % (A) 0.1 %; Eosinophils # (A) 0 X 10*3/uL (0.04-0.35); Eosinophils % (A) 0 %; HCT 31.4 % (37.2-46.3); HGB 10.1 g/dL (12.0-15.0); Immature Grans, Automated 0.7 %; Lymphocytes # (A) 1.22 X 10*3/uL (0.90-5.00); Lymphocytes % (A) 7.2 %; MCHC 32.2 g/dL (32.0-37.0); MCV 96.3 fL (80.0-97.0); Mean Platelet Volume 11.8 fL (9.5-12.2); Monocytes # (A) 1.37 X 10*3/uL (0.20-1.00); Monocytes % (A) 8.1 %; NRBC Per 100 WBC 0 /100 WBCS (0.0-0.0); Neutrophils % (A) 83.9 %; Platelet Count 171 X 10*3/uL (140-440); RBC 3.26 X 10*6/uL (4.10-5.20); RDW 13.2 % (11.5-14.5); WBC 16.93 X 10*3/uL (4.50-10.00)
[2022-05-08 11:31] LABS: African American GFR (CKD) 49.8 (60.0-200.0); Albumin 3.8 g/dL (3.8-4.9); Albumin/Globulin Ratio 1.81 (1.60-3.17); BUN/Creat Ratio 19.08 Ratio (12.00-20.00); Blood Urea Nitrogen 22.9 mg/dL (9.0-27.0); Calcium 9.3 mg/dL (8.7-10.3); Globulin 2.1 g/dL (1.6-3.3); Non-African American GFR(CKD) 42.9 (60.0-200.0); Potassium 4.2 mmol/L (3.5-5.5); Total Bilirubin 0.8 mg/dL (0.30-1.20); Total Protein 5.9 g/dL (6.2-8.2)
[2022-05-08] MEDS ORDERED: NON FORMULARY DRUG (Ubidecarenone [Coq-10] 100 MG Capsule) PO SCH (17:30)
[2022-05-08] MEDS ORDERED: CHOLECALCIFEROL 25 MCG (1000 IU) TABLET PO SCH (17:30)
[2022-05-08] MEDS ORDERED: MAGNESIUM OXIDE 400 MG TAB PO SCH (17:30)
== END 2022-05-08 11:00 | disposition home health service (06) ==
LOC: OR 09:13 → 4SSUR 15:19 → OR 05-08 11:00
PROVIDERS: ATTEND Orthopaedic Surgery
DX: M17.11 Unilateral primary osteoarthritis, right knee (principal); G89.18 Other acute postprocedural pain; I11.9 Hypertensive heart disease without heart failure; E78.5 Hyperlipidemia, unspecified; I48.91 Unspecified atrial fibrillation; E03.9 Hypothyroidism, unspecified; Z97.3 Presence of spectacles and contact lenses; Z79.899 Other long term (current) drug therapy; Z90.710 Acquired absence of both cervix and uterus
CPT/HCPCS: 97161; 97535; 97166; 64999; 64448; 76942; 80053; 85025; 73560; 27447; C1776; C1751; J2250; J1200; J1100; J0690 ×3; J2405; J2795; J2704

== ENCOUNTER 2022-12-27 09:50 | Emergency (ER) | payer MEDICARE ==
[2022-12-27 09:57] VITALS: RESP 18; TEMP 97.9
[2022-12-27] MEDS ORDERED: ONDANSETRON 4 MG/2 ML VIAL IVP STA (10:01)
[2022-12-27] MEDS ORDERED: SODIUM CHLORIDE 0.9% 500 ML 500 ML IV STA (10:04)
--- NOTE | 2022-12-27 10:16 | ED ---
Abdominal Pain HPI - General Chief Complaint: Abdominal Pain Stated Complaint: diarrhea,abd pain Time Seen by Provider: 12/27/22 10:00 Source: patient Mode of arrival: ambulatory Limitations: no limitations - History of Present Illness Initial Comments: Patient is an 82-year-old female presents the emergency department for abdominal pain. States she has had diarrhea for the past 3 weeks which she is currently following with Dr. Ze arroyo. States she finished a course of antibiotics over a week ago without improvement. She reports several episodes of watery diarrhea daily, nonbloody. No history of C. diff. She has had intermittent generalized abdominal cramping which over the past couple days has progressed to mild sharp pain in the left upper abdomen. There is no radiation. Patient reports nausea without vomiting. No fever or chills. She has history of diverticulitis with bowel resection. States this feels somewhat similar. - Related Data Home Medications Medication Instructions Recorded Confirmed Furosemide [Lasix] 40 mg PO BID@0800,1500 11/30/13 12/27/22 Spironolactone [Aldactone] 25 mg PO DAILY 11/30/13 12/27/22 Levothyroxine Sodium [Synthroid] 75 mcg PO DAILY 10/20/17 12/27/22 Sacubitril/Valsartan [Entresto 24 1 tab PO BID 01/19/18 12/27/22 mg-26 mg Tablet] allopurinoL [Zyloprim] 100 mg PO DAILY 01/27/20 12/27/22 Atorvastatin [Lipitor] 20 mg PO HS 06/09/20 12/27/22 Metoprolol Succinate [Toprol XL] 200 mg PO DAILY 06/09/20 12/27/22 Rivaroxaban [Xarelto] 15 mg PO HS 06/14/21 12/27/22 Cholecalciferol [Vitamin D3 (25 75 mcg PO DAILY 06/24/21 12/27/22 Mcg = 1000 Iu)] Magnesium Oxide [Mag-Ox] 250 mg PO DAILY 06/24/21 12/27/22 Potassium Gluconate [Potassium 99 mg PO DAILY 06/24/21 12/27/22 Gluconate ER] Cholestyramine (with Sugar) 4 gm PO DAILY 12/27/22 12/27/22 [Cholestyramine Packet] Psyllium Husk [Metamucil] 0.4 gm PO DAILY 12/27/22 12/27/22 Ubidecarenone [Coenzyme Q10] 200 mg PO DAILY 12/27/22 12/27/22 Previous Rx's Medication Instructions Recorded Diphenox-Atrop 2.5-0.025 mg 1 - 2 tab PO QID PRN 3 Days #24 tab 12/27/22 [Lomotil] Allergies Allergy/AdvReac Type Severity Reaction Status Date / Time adhesive tape Allergy Rash/Hives Verified 12/27/22 12:25 ibuprofen [From Motrin] Allergy Swelling & Verified 12/27/22 12:25 itching on entire body levofloxacin [From Levaquin] Allergy Rash/Hives Verified 12/27/22 12:25 Review of Systems ROS Statement: Those systems with pertinent positive or pertinent negative responses have been documented in the HPI. ROS Other: All systems not noted in ROS Statement are negative. Past Medical History Past Medical History: Memory Impairment, Myocardial Infarction ([place]), Thyroid Disorder Additional Past Medical History / Comment(s): hiatal hernia, hx basal skin cance r, hx diverticulitis Last Myocardial Infarction Date:: 04/2012 History of Any Multi-Drug Resistant Organisms: None Reported Past Surgical History: AICD, Bowel Resection, Breast Surgery, Cardiac Ablation, Cholecystectomy, Heart Catheterization, Hysterectomy, Orthopedic Surgery, Tonsillectomy Additional Past Surgical History / Comment(s): bilateral breast reduction 1995, arthroscopic rt knee, partial hysterectomy (bilateral ovaries retained), pacemaker battery replaced October 2018, right breast lumpectomy, TRK 05/07/22 Past Anesthesia/Blood Transfusion Reactions: No Reported Reaction Additional Past Anesthesia/Blood Transfusion Reaction / Comment(s): No blood transfusions to date (pt had an autolygous transfusion when undergoing bilateral breast reduction). Type of Cardiac Device: Permanent Pacemaker, AICD Device Placement Date:: 2006 (info from pt's med [employer]-[id number],model#[id number]) Past Psychological History: No Psychological Hx Reported Smoking Status: Former smoker Past Alcohol Use History: Rare Past Drug Use History: None Reported - Past Family History Mother Family Medical History: Cancer Additional Family Medical History / Comment(s): Colon cancer dx at age 74, at age 84. Sister(s) Family Medical History: Cancer, CVA/TIA, Deep Vein Thrombosis (DVT) Additional Family Medical History / Comment(s): pt has 2 sisters: sister #1: at age 79 from stroke complications (also had a hx of blood clots). sister #2: had a cancerous tumor on aortic valve. Son(s) Family Medical History: Deep Vein Thrombosis (DVT) Brother(s) Family Medical History: CVA/TIA, Deep Vein Thrombosis (DVT) Additional Family Medical History / Comment(s): She has 1 brother with a history of stroke and blood clot. Father Family Medical History: Congestive Heart Failure (CHF) General Exam Limitations: no limitations General appearance: alert Head exam: Present: atraumatic, normocephalic, normal inspection Respiratory exam: Present: normal lung sounds bilaterally. Absent: respiratory distress, wheezes, rales, rhonchi, stridor Cardiovascular Exam: Present: regular rate, normal rhythm, normal heart sounds. Absent: systolic murmur, diastolic murmur, rubs, gallop, clicks GI/Abdominal exam: Present: soft, normal bowel sounds. Absent: distended, tenderness, guarding, rebound, rigid Neurological exam: Present: alert, oriented X3, CN II-XII intact Psychiatric exam: Present: normal affect, normal mood Skin exam: Present: warm, dry, intact, normal color. Absent: rash Course Vital Signs 12/27/22 09:54 Temperature 97.9 F Pulse Rate 64 Respiratory 18 Rate Blood Pressure 110/46 O2 Sat by Pulse 95 Oximetry Medical Decision Making - Medical Decision Making EKG taken at 10:12, interpreted by myself ventricular pacemaker Ventricular rate 64, QRS duration 170, QTC 517 Was pt. sent in by a medical professional or institution (, PA, POST PRODUCTION ASSISTANT, urgent care, hospital, or senior care...) When possible be specific @ -No Did you speak to anyone other than the patient for history (EMS, parent, family, police, friend...)? What history was obtained from this source @ -No Did you review nursing and triage notes (agree or disagree)? Why? @ -I reviewed and agree with nursing and triage notes Were old charts reviewed (outside hosp., previous admission, EMS record, old EKG, old radiological studies, urgent care reports/EKG's, senior care records)? Report findings @ -No old charts were reviewed Differential Diagnosis (chest pain, altered mental status, abdominal pain women, abdominal pain men, vaginal bleeding, weakness, fever, dyspnea, syncope, headache, dizziness, GI bleed, back pain, seizure, CVA, palpatations, mental health)? @ -Differential Abdominal Pain Women: Appendicitis, Cholecystitis, diverticulosis, ischemic bowel, pancreatitis, hepatitis, UTI, gastroenteritis, AAA, incarcerated hernia, bowel obstruction, constipation, inflammatory bowel, hepatitis, peptic ulcer disease, splenic infarction, perforated viscus, vulvitis, ovarian torsion, PID, kidney stone, placenta abruption, this is not meant to be an all-inclusive list EKG interpreted by me (3pts min.). @ -As above X-rays interpreted by me (1pt min.). @ -None done CT interpreted by me (1pt min.). @ -Possible mild uncomplicated proximal colitis and/or diarrhea no suspicious new or acute findings present U/S interpreted by me (1pt. min.). @ -None done What testing was considered but not performed or refused? (CT, X-rays, U/S, labs)? Why? @ -None What meds were considered but not given or refused? Why? @ -None Did you discuss the management of the patient with other professionals (professionals i.e. , PA, POST PRODUCTION ASSISTANT, lab, RT, psych nurse, geriatric social worker, attorney lawyer, teacher, learning and development officer, dependency case manager)? Give summary @ -No Was smoking cessation discussed for >3mins.? @ -No Was critical care preformed (if so, how long)? @ -No Were there social determinants of health that impacted care today? How? (Homelessness, low income, unemployed, alcoholism, drug addiction, transportation, low edu. Level, literacy, decrease access to med. care, longterm, rehab)? @ -No Was there de-escalation of care discussed even if they declined (Discuss DNR or withdrawal of care, Hospice)? DNR status @ -No What co-morbidities impacted this encounter? (DM, HTN, Smoking, COPD, CAD, Ca ncer, CVA, ARF, Chemo, Hep., AIDS, mental health diagnosis, sleep apnea, morbid obesity)? @ -None Was patient admitted / discharged? Hospital course, mention meds given and route, prescriptions, significant lab abnormalities, going to OR and other pertinent info. @ Patient presenting with abdominal pain and diarrhea. Patient is well-appear ing the abdomen is soft. No abdominal tenderness. CT interpreted myself/radiology showing possible mild uncomplicated proximal colitis and/or diarrhea otherwise no acute findings present. Patient afebrile, no leukocytosis, no vomiting. She was hydrated and given Lomotil. She is in stable medical condition for discharge. She will be discharged with Lomotil and will follow-up with Dr. Kunz we did discuss return parameters. She was unable to give a stool sample she is sent home with a paper prescription for stool studies Undiagnosed new problem with uncertain prognosis? @ -No Drug Therapy requiring intensive monitoring for toxicity (Heparin, Nitro, Insulin, Cardizem)? @ -No Were any procedures done? @ -No Diagnosis/symptom? @ -diarrhea, abdominal pain Acute, or Chronic, or Acute on Chronic? @ -acute Uncomplicated (without systemic symptoms) or Complicated (systemic symptoms)? @ -uncomplicated Side effects of treatment? @ -No Exacerbation, Progression, or Severe Exacerbation? @ -No Poses a threat to life or bodily function? How? (Chest pain, [place], [place], pneumonia, PE, COPD, DKA, ARF, appy, cholecystitis, CVA, Diverticulitis, Homicidal, Suicidal, threat to staff... and all critical care pts) @ -No Dr. Palacios is my attendin - Lab Data Result diagrams: 12/27/22 10:11 12/27/22 10:11 Lab Results 12/27/22 12/27/22 12/27/22 Range/Units 10:11 10:11 10:11 WBC 7.9 (3.8-10.6) k/uL RBC 4.02 (3.80-5.40) m/uL Hgb 12.7 (11.4-16.0) gm/dL Hct 38.3 (34.0-46.0) % MCV 95.3 (80.0-100.0) fL MCH 31.7 (25.0-35.0) pg MCHC 33.3 (31.0-37.0) g/dL RDW 13.4 (11.5-15.5) % Plt Count 203 (150-450) k/uL MPV 8.7 Neutrophils % 68 % Lymphocytes % 21 % Monocytes % 7 % Eosinophils % 2 % Basophils % 0 % Neutrophils # 5.4 (1.3-7.7) k/uL Lymphocytes # 1.7 (1.0-4.8) k/uL Monocytes # 0.6 (0-1.0) k/uL Eosinophils # 0.2 (0-0.7) k/uL Basophils # 0.0 (0-0.2) k/uL Sodium 137 (137-145) mmol/L Potassium 4.0 (3.5-5.1) mmol/L Chloride 102 (98-107) mmol/L Carbon Dioxide 26 (22-30) mmol/L Anion Gap 9 mmol/L BUN 26 H (7-17) mg/dL Creatinine 1.06 H (0.52-1.04) mg/dL Est GFR (CKD-EPI)AfAm 58 (>60 ml/min/1.73 sqM) Est GFR (CKD-EPI)NonAf 50 (>60 ml/min/1.73 sqM) Glucose 106 H (74-99) mg/dL Plasma Lactic Acid Chris (0.7-2.0) mmol/L Calcium 9.0 (8.4-10.2) mg/dL Magnesium 2.6 H (1.6-2.3) mg/dL Total Bilirubin 0.9 (0.2-1.3) mg/dL AST 28 (14-36) U/L ALT 19 (4-34) U/L Alkaline Phosphatase 53 (38-126) U/L Total Protein 6.9 (6.3-8.2) g/dL Albumin 3.8 (3.5-5.0) g/dL Lipase 204 (23-300) U/L Urine Color Light Yellow Urine Appearance Clear (Clear) Urine pH 6.5 (5.0-8.0) Ur Specific [place] 1.003 (1.001-1.035) Urine Protein Negative (Negative) Urine Glucose (UA) Negative (Negative) Urine Ketones Negative (Negative) Urine Blood Negative (Negative) Urine Nitrite Negative (Negative) Urine Bilirubin Negative (Negative) Urine Urobilinogen <2.0 (<2.0) mg/dL Ur Leukocyte Esterase Trace H (Negative) Urine RBC 1 (0-5) /hpf Urine WBC 1 (0-5) /hpf Ur Squamous Epith Cells 1 (0-4) /hpf Urine Bacteria Rare H (None) /hpf 06/30/23 Range/Units 10:11 WBC (3.8-10.6) k/uL RBC (3.80-5.40) m/uL Hgb (11.4-16.0) gm/dL Hct (34.0-46.0) % MCV (80.0-100.0) fL MCH (25.0-35.0) pg MCHC (31.0-37.0) g/dL RDW (11.5-15.5) % Plt Count (150-450) k/uL MPV Neutrophils % % Lymphocytes % % Monocytes % % Eosinophils % % Basophils % % Neutrophils # (1.3-7.7) k/uL Lymphocytes # (1.0-4.8) k/uL Monocytes # (0-1.0) k/uL Eosinophils # (0-0.7) k/uL Basophils # (0-0.2) k/uL Sodium (137-145) mmol/L Potassium (3.5-5.1) mmol/L Chloride (98-107) mmol/L Carbon Dioxide (22-30) mmol/L Anion Gap mmol/L BUN (7-17) mg/dL Creatinine (0.52-1.04) mg/dL Est GFR (CKD-EPI)AfAm (>60 ml/min/1.73 sqM) Est GFR (CKD-EPI)NonAf (>60 ml/min/1.73 sqM) Glucose (74-99) mg/dL Plasma Lactic Acid Chris 1.6 (0.7-2.0) mmol/L Calcium (8.4-10.2) mg/dL Magnesium (1.6-2.3) mg/dL Total Bilirubin (0.2-1.3) mg/dL AST (14-36) U/L ALT (4-34) U/L Alkaline Phosphatase (38-126) U/L Total Protein (6.3-8.2) g/dL Albumin (3.5-5.0) g/dL Lipase (23-300) U/L Urine Color Urine Appearance (Clear) Urine pH (5.0-8.0) Ur Specific [place] (1.001-1.035) Urine Protein (Negative) Urine Glucose (UA) (Negative) Urine Ketones (Negative) Urine Blood (Negative) Urine Nitrite (Negative) Urine Bilirubin (Negative) Urine Urobilinogen (<2.0) mg/dL Ur Leukocyte Esterase (Negative) Urine RBC (0-5) /hpf Urine WBC (0-5) /hpf Ur Squamous Epith Cells (0-4) /hpf Urine Bacteria (None) /hpf Disposition Clinical Impression: Diarrhea, Abdominal pain Disposition: HOME SELF-CARE Condition: Good Instructions (If sedation given, give patient instructions): Acute Diarrhea (ED), Abdominal Pain (ED) Additional Instructions: Take medication as directed. Please follow-up with your primary care provider in 1-2 days. Return to the emergency department if you experience new, concerning, or worsening symptoms. Prescriptions: Diphenox-Atrop 2.5-0.025 mg [Lomotil] 1 - 2 tab PO QID PRN 3 Days #24 tab PRN Reason: Diarrhea Is patient prescribed a controlled substance at d/c from ED?: No Referrals: Kostas Kunz MD [Primary Care Provider] - 1-2 days
[2022-12-27 10:22] LABS: Basophils % (A) 0 %; Eosinophils # (A) 0.2 k/uL (0-0.7); Eosinophils % (A) 2 %; HCT 38.3 % (34.0-46.0); HGB 12.7 gm/dL (11.4-16.0); Lymphocytes # (A) 1.7 k/uL (1.0-4.8); Lymphocytes % (A) 21 %; MCH 31.7 pg (25.0-35.0); MCHC 33.3 g/dL (31.0-37.0); MCV 95.3 fL (80.0-100.0); Mean Platelet Volume 8.7; Monocytes # (A) 0.6 k/uL (0-1.0); Monocytes % (A) 7 %; Neutrophils # (A) 5.4 k/uL (1.3-7.7); Neutrophils % (A) 68 %; Platelet Count 203 k/uL (150-450); RBC 4.02 m/uL (3.80-5.40); RDW 13.4 % (11.5-15.5); WBC 7.9 k/uL (3.8-10.6)
[2022-12-27] MEDS ORDERED: ACETAMINOPHEN TAB 500 MG TAB PO STA (10:29)
[2022-12-27 10:48] LABS: ALT 19 U/L (4-34); AST 28 U/L (14-36); African American GFR (CKD) 58 (>60 ml/min/1.73 sqM); Albumin 3.8 g/dL (3.5-5.0); Alkaline Phosphatase 53 U/L (38-126); Anion Gap 9 mmol/L; Blood Urea Nitrogen 26 mg/dL (7-17); Carbon Dioxide 26 mmol/L (22-30); Chloride 102 mmol/L (98-107); Glucose 106 mg/dL (74-99); Lipase 204 U/L (23-300); Magnesium 2.6 mg/dL (1.6-2.3); Non-African American GFR(CKD) 50 (>60 ml/min/1.73 sqM); Sodium 137 mmol/L (137-145); Total Bilirubin 0.9 mg/dL (0.2-1.3); Total Protein 6.9 g/dL (6.3-8.2)
[2022-12-27 11:18] LABS: Appearance,Urine Clear (Clear); Bacteria,Urine Rare /hpf; Bilirubin,Urine Negative (Negative); Blood,Urine Negative (Negative); Color,Urine Light Yellow; Glucose,Urine (UA) Negative (Negative); Ketones,Urine Negative (Negative); Leukocyte Esterase,Urine Trace (Negative); Nitrite,Urine Negative (Negative); PH, Urine 6.5 (5.0-8.0); Protein,Urine Negative (Negative); RBC,Urine 1 /hpf (0-5); Specific Gravity,Urine 1.003 (1.001-1.035); Squamous Epithelial Cell,Urine 1 /hpf (0-4); Urobilinogen,Urine <2.0 mg/dL (<2.0); WBC,Urine 1 /hpf (0-5)
--- NOTE | 2022-12-27 11:35 | CT ---
EXAMINATION TYPE: CT abdomen pelvis w con DATE OF EXAM: 12/27/2022 HISTORY: Left lower pain CT DLP: 1029mGycm Automated Exposure Control for Dose Reduction was Utilized. CONTRAST: CT scan of the abdomen and pelvis is performed without oral but with with IV Contrast, patient inject ed with 80 mL of Isovue 300. COMPARISON: CT abdomen and pelvis December 12, 2021 FINDINGS: LUNG BASES: Cardiomegaly with multilead pacemaker/defibrillator is redemonstrated. Coronary artery ca lcification is again seen. Moderate to severe right atrial dilatation noted. There is [id number] e left atrial and left ventricular dilatation. LIVER/GB: Cholecystectomy clips are again seen. Scattered small subcentimeter hypodense lesions too s mall to further characterize favored benign redemonstrated throughout the liver. PANCREAS: No significant abnormality is seen. SPLEEN: No significant abnormality is seen. ADRENALS: No significant abnormality is seen. KIDNEYS: Symmetric cortical medullary uptake and excretion without hydronephrosis seen bilaterally. Simple appearing 3.4 cm thin-walled cyst in the left kidney laterally midpole level axial image 45 re demonstrated. BOWEL: Suboptimal evaluation of bowel without enteric contrast. Stomach poorly distended and thus sub optimally evaluated. No suspicious small or large bowel dilatation. There are surgical sutures in the pelvis redemonstrated. A few diverticula proximal to this enhancing. Additional scattered colonic di verticula are present. No CT evidence for acute diverticulitis. Abnormal fluid in the right and porti ons of transverse colon is noted. UTERUS/ADNEXA: Uterus surgically absent. Scattered pelvic phleboliths redemonstrated. LYMPH NODES: No greater than 1cm abdominal or pelvic lymph nodes are appreciated. OSSEOUS STRUCTURES: Slight underlying scoliotic curvature. Moderate to severe disc space narrowing L3 -L4 level. Grade 1 retrolisthesis L3 on L4. Moderate disc space narrowing left L5-S1 level. OTHER: No significant additional abnormality is seen. IMPRESSION: No bowel obstruction. Prior distal colonic surgery and re-anastomosis redemonstrated. A f ew Scattered colonic diverticula again seen. No CT evidence for acute diverticulitis currently. Possi ble mild uncomplicated proximal colitis and/or diarrhea. Correlate clinically. Otherwise no suspiciou s new or acute findings present.
[2022-12-27] MEDS ORDERED: DIPHENOX-ATROP 2.5-0.025 MG 1 EACH TAB PO STA (12:09)
[2022-12-27 13:25] VITALS: BP 95/69; PULSE 59
== END 2022-12-27 13:25 | disposition home or self-care (01) ==
LOC: EC 09:50
DX: R19.7 Diarrhea, unspecified (principal); R10.9 Unspecified abdominal pain; I25.2 Old myocardial infarction; E07.9 Disorder of thyroid, unspecified; Z87.891 Personal history of nicotine dependence; Z88.5 Allergy status to narcotic agent; Z88.8 Allergy status to other drugs, medicaments and biological substances; Z79.890 Hormone replacement therapy; Z79.899 Other long term (current) drug therapy
CPT/HCPCS: 36415; 93005; 80053; 83605; 83690; 83735; 85025; 81001; 74177; 99284; 96374; J2405; Q9967

== ENCOUNTER → 2023-01-27 | Outpatient (CLI) | payer MEDICARE ==
--- NOTE | 2023-01-28 10:16 | BD ---
EXAMINATION TYPE: Axial Bone Density DATE OF EXAM: 01/27/2023 CLINICAL HISTORY: 82 years old Female. ICD-10 CODE: M85.851 OSTEOPENIA RT HIP Height: 63 Weight: 187.0 FRAX RISK QUESTIONS: Alcohol (3 or more units per day): no Family History (Parent hip fracture): no Glucocorticoids (More than 3mos): no History of Fracture in Adulthood: no Secondary Osteoporosis: 1. Type 1 Diabetes: no 2. Hyperthyroidism: no 3. Menopause before 45: no 4. Malnutrition: no 5. Chronic liver disease: no Rheumatoid Arthritis: no Current Tobacco Use: no RISK FACTORS HISTORY OF: Hip Fracture (Right/Left): no Spine Fracture: no History of Wrist Fracture: no Surgery to Spine/Hip(right/left)/Wrist (right/left): no Family History of Osteoporosis: no Active: yes Diet low in dairy products/other sources of calcium: yes Postmenopausal woman: yes Take estrogen and/or progesterone medications: no Lost more than 2 inches in height since high school: no Frequent falls: no Poor Health: no Hyperparathyroidism: no Adrenal Insufficiency: no MEDICATIONS: Prednisone or other steroids: no Thyroid Medications: levothyroxine How Long: past 15 years Osteoporosis Medications: no Additional Medications: Atrovastatin, metoporol, potassium, CoQ-10, Vit D, Magnesium Additional History: Breast Ca. 2017 EXAM MEASUREMENTS: Bone mineral densitometry was performed using the [employer] System. Bone mineral density as measured about the Lumbar spine is: ----- L1-L4(G/cm2): 1.382 T Score Values are as follows: ----- L1: -0.1 ----- L2: 1.2 ----- L3: 2.9 ----- L4: 2.5 ----- L1-L4: 1.7 Z Score Values are as follows: ----- L1: 1.0 ----- L2: 2.4 ----- L3: 4.0 ----- L4: 3.7 ----- L1-L4: 2.9 Bone mineral density has: decreased -0.2 % since study of: 12/14/2018 Bone mineral density about the R hip (g/cm2): 0.969 Bone mineral density about the L hip (g/cm2): 1.023 T Score values are as follows: -----R Neck: -1.3 -----L Neck: -1.1 -----R Total: -0.3 -----L Total: 0.1 Z Score values are as follows: -----R Neck: 0.4 -----L Neck: 0.6 -----R Total: 1.2 -----L Total: 1.7 Bone mineral density has: decreased -8.3 % since study of: 12/14/2018 FRAX%s: The graph provided illustrates a 12.2% chance for a major osteoporotic fx and a 2.6% chance f or the hips probability for fx in 10 years time. IMPRESSION: Osteopenia (T Score between -2.5 and -1). There is slightly increased risk of fracture and the patient may be considered for treatment. Re-Screen 2-5 years. NOTE: T-SCORE=SD OF THE YOUNG ADULT MEAN.
== END | disposition home or self-care (01) ==
LOC: RADBDWWP 08:45
PROVIDERS: ATTEND Internal Medicine
DX: M85.89 Other specified disorders of bone density and structure, multiple sites (principal); Z78.0 Asymptomatic menopausal state
CPT/HCPCS: 77080

== ENCOUNTER → 2023-01-27 | Outpatient (CLI) | payer MEDICARE ==
--- NOTE | 2023-01-27 11:06 | MM ---
Reason for Exam: Hx of breast cancer, conservation therapy. Last screening mammogram was performed 12 month(s) ago. Patient History: Menarche at age 17. First Full-Term at age 23. Hysterectomy at age 43. Postmenopausal. Other cancer, age 67. Breast cancer, right, age 78. Patient used Estrogen for 3 years. 1995, Bilateral Reduction. 02/23/2019, Lumpectomy on the Right side. 02/23/2019, Malignant Core Biopsy on the right side. 12/28/2018, Malignant Core Biopsy on the right side. Prior Study Comparison: 12/21/2019 Bilateral Diagnostic Mammogram, [facility]. 01/22/2021 Bilateral Screening Mammogram, [facility]. 01/23/2022 Bilateral MG 3D screening mammo w/cad, [facility]. Tissue Density: The breast tissue is almost entirely fat. Findings: Analyzed By CAD. Right breast surgical clips. Left breast partially obscured by pacemaker. There is no suspicious group of microcalcifications or new suspicious mass in either breast. Overall Assessment: Negative, BI-RAD 1 Management: Screening Mammogram of both breasts in [address] [facility] will attempt to contact patient to return for supplemental views and ultrasound if indicated. Patient should continue monthly self-breast exams. A clinical breast exam by your physician is recommended on an annual basis. This exam should not preclude additional follow-up of suspicious palpable abnormalities. Note on Lucero scores and lifetime risk: 1. A Lucero score greater than 3% is considered moderate risk. If this is the case, consider specialist referral to assess eligibility for a risk reducing agent. 2. If overall lifetime risk for the development of breast cancer is 20% or higher, the patient may qualify for future screening with alternating mammogram and breast MRI. Electronically signed and approved by: Adi Pabon DO
== END | disposition home or self-care (01) ==
LOC: RADMAMWWP 08:41
PROVIDERS: ATTEND Surgery
DX: Z12.31 Encounter for screening mammogram for malignant neoplasm of breast (principal); Z78.0 Asymptomatic menopausal state
CPT/HCPCS: 77063; 77067

== ENCOUNTER → 2023-01-31 | Outpatient (CLI) | payer MEDICARE ==
[2023-01-31 09:48] VITALS: BP 109/74; PULSE 81; RESP 18; TEMP 97.7
--- NOTE | 2023-01-31 10:05 | P.PN ---
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 She was on a blood thinner and this was stopped. The patient had a mammogram done on 12-14-18. This revealed a 7 mm microlobulated mass in the upper outer quadrant in the right breast. Subsequently an ultrasound was performed and the ultrasound confirmed this area. She underwent ultrasound-guided core biopsy of the right breast on 7118. In addition to the 7 mm mass at the 10 o'clock position of the right breast there were 2 lesions 1 at 4 mm and 1-2 mm seen 7 mm apart from the index mass. The index mass was sampled and this was positive for invasive ductal carcinoma grade 1. This is ER/NV positive and HER-2 2 negative. She underwent lumpectomy and SNB on 02-23-19. Pathology reveled a [id number] ER/NV +, Her 2-, G1; Stage 1A; She did not have radiation therapy. Patient is doing well at this time, she has some persistent mild swelling under the arm. This is not painful for her. The patient did not have any radiation therapy. She was taking an antiestrogen medication, Anastrazole, patient states that she experienced joint pain, diarrhea, and hair thinning. She was therefore switched to exemestane the symptoms continued and she therefore opted to stop all anti-hormone therapy. She has been off this therapy since approximately 5-6 months. Do not have any radiation therapy, she did not have any chemotherapy. The patient has no complaints at this time related to her breast. The patient had a bilateral mammogram on 01-22-21. This was benign BIRADS 2 and follow-up diagnostic mammogram of the breast in 1 year was recommended. The patient presents for an examination and surveillance related to her breast cancer. 10-19-21 At this time she has no complaints related to her breast. She has no complaints of lumps masses or nodules. She is not complaining of any nipple discharge or skin changes. She has had chest wall basal cell carcinomas many years ago. 03-28-22 Bilateral mammogram on 01-23-22; BIRAD 2. At this time she is not complaining of any new lumps masses or nodules of concern in either breast. She has not had any radiation therapy, and she has declined hormone therapy secondary to symptoms. The symptoms of joint pain, diarrhea, and here pending have improved since she has been off the antihormone therapy. 01-31-23 Berenice is an 82-year-old white female status post right breast lumpectomy and sentinel node biopsy on [id number]. She did not have radiation therapy. She attempted hormone therapy which she did not tolerate. She did not have chemotherapy[place] [address] which was benign BIRADS 1. She is not complaining of any lumps masses or nodules of concern in either breast. Family history: 1. Mother: Colon cancer 2. Sister.: Skin cancer 3. Patient: Skin cancer, chest wall Hormonal history: Menarche: 17 , one miscarriage, first live at 23, breast fed Yes Menopause: Hysterectomy at 42 did not take ovaries this was done for bleeding control pills: 15 years Hormones: Negative Past surgical history: 1. Cholecystectomy 2. Pacemaker 3. Breast reduction 4. Hernia surgery 5. Colon resection 6. Tonsillectomy 7. Hysterectomy 8. Pacemaker 9. Right breast lumpectomy/sentinel node biopsy 02-23-19 10. right knee replacement Past medical history: 1. Atrial fibrillation pacemaker (Xeralto) 2. NV 2010 3. DVT 2017 4. diverticular disease 5. Decreased hearing Social history: Smoke: One pack per week for 15 years Stopped smoking in 1995 Alcohol: Twice a month Drugs: Negative - Constitutional Constitutional: Denies chills, Denies fever - EENT Comment: wears glasses, cataracts Ears: left: decreased hearing (Right deaf, heariong aid left ear), deny: tinnitus Ears, nose, mouth and throat: Denies headache, Denies sore throat - Breasts Breasts: bilateral: as per HPI - Cardiovascular Cardiovascular: Reports high blood pressure, Denies chest pain, Denies shortness of breath - Respiratory Comment: former smoker - Gastrointestinal Gastrointestinal: Denies abdominal pain, Denies diarrhea, Denies nausea, Denies vomiting, diverticular disease - Genitourinary (Female) Genitourinary: Denies dysuria, Denies hematuria - Menstruation Menstruation: Reports post hysterectomy - Musculoskeletal Comment: arthritis - Integumentary Integumentary: Denies pruritus, Denies rash - Neurological Neurological: Denies numbness, Denies weakness - Psychiatric Psychiatric: Denies anxiety, Denies depression - Endocrine Comment: hypothyroid - Hematologic/Lymphatic Comment: none - Allergic/Immunologic Allergic/Immunologic: Reports seasonal allergies Objective - Vital Signs Vital signs: Vital Signs Temp 97.7 F 01/31/23 09:45 Pulse 81 01/31/23 09:45 Resp 18 01/31/23 09:45 BP 109/74 01/31/23 09:45 Pulse Ox 97 01/31/23 09:45 FiO2 Intake & Output 01/30/23 01/31/23 01/31/23 18:59 06:59 18:59 Weight 83.915 kg - Constitutional General appearance: Present: cooperative - EENT Eyes: Present: EOMI ENT: Present: hearing grossly normal - Neck Neck: Present: normal ROM - Respiratory Respiratory: bilateral: CTA - Cardiovascular Rhythm: regular Heart sounds: normal: S1, S2 - Gastrointestinal General gastrointestinal: Present: soft - Integumentary Integumentary: Present: normal turgor - Musculoskeletal Musculoskeletal: Present: gait normal - Psychiatric Psychiatric: Present: A&O x's 3, appropriate affect, intact judgment & insight - Additional findings Additional findings: Bresat Exam: BRA: 36C Inspection: Well-healed scars bilaterally from prior reduction mammoplasty, pacemaker upper chest wall left Palpation: Right breast: Multiple positional exam fibrocystic changes no discrete dominant masses or nodules of concern, no evidence of any recurrent cancer Right axilla: No adenopathy of concern Left breast: Multiple positional exam fibrocystic changes no dominant masses or nodules of concern, pacemaker upper left chest wall Left axilla: No adenopathy of concern Assessment and Plan Assessment: Impression: Stage IA invasive ductal cancer no evidence of recurrence Plan: Repeat bilateral mammogram in December 2023 with physician exam at that time To follow sooner any questions or concerns CC: Dr. Kunz
== END ==
LOC: WWCWWP 09:37
PROVIDERS: ATTEND Surgery
DX: C50.411 Malignant neoplasm of upper-outer quadrant of right female breast (principal); I48.91 Unspecified atrial fibrillation; I25.2 Old myocardial infarction; Z85.3 Personal history of malignant neoplasm of breast; Z17.0 Estrogen receptor positive status [ER+]; Z86.718 Personal history of other venous thrombosis and embolism; Z87.891 Personal history of nicotine dependence; Z95.0 Presence of cardiac pacemaker; Z91.048 Other nonmedicinal substance allergy status; Z88.8 Allergy status to other drugs, medicaments and biological substances; Z88.1 Allergy status to other antibiotic agents; Z79.01 Long term (current) use of anticoagulants

== ENCOUNTER 2023-06-02 15:48 | Emergency (ER) | payer MEDICARE ==
--- NOTE | 2023-06-02 16:17 | ED ---
URI HPI - General Source: patient, family, RN notes reviewed <Allison Barraza - Last Filed: 06/02/23 16:16> <Waldo Palacios - Last Filed: 06/02/23 18:56> - General Stated Complaint: Covid+ MARYLOU Time Seen by Provider: 06/02/23 16:16 - History of Present Illness Initial Comments: Patient is an 82-year-old female presented ER chief complaint shortness of breath. Patient tested positive for Covid on Friday symptom onset was about 6 days ago. Patient was not treated with Paxil that. Patient was sent here from doctor's office due to increasing shortness of breath. Patient denies any fevers but endorses chills. (Allison Barraza) This is an 82-year-old female who presents emergency Department complaining that she's feeling more short of breath and tired. Patient states she was having symptoms starting last Friday and tested positive for Covid and was told about it this morning. Patient denies any recent fevers or chills. Patient denies chest pain. Patient states she's had no sore throat. Patient states she is tired and she's thinking she is somewhat short of breath. The patient is currently oxygen 100% on room air with a mask on. Patient denies any headache or lightheadedness or dizziness. (Waldo Palacios) - Related Data Home Medications Medication Instructions Recorded Confirmed Furosemide [Lasix] 40 mg PO BID@0800,1500 11/30/13 01/31/23 Spironolactone [Aldactone] 25 mg PO DAILY 11/30/13 01/31/23 Levothyroxine Sodium [Synthroid] 75 mcg PO DAILY 10/20/17 01/31/23 Sacubitril/Valsartan [Entresto 24 1 tab PO BID 01/19/18 01/31/23 mg-26 mg Tablet] allopurinoL [Zyloprim] 100 mg PO DAILY 01/27/20 01/31/23 Atorvastatin [Lipitor] 20 mg PO HS 06/09/20 01/31/23 Metoprolol Succinate [Toprol XL] 200 mg PO DAILY 06/09/20 01/31/23 Rivaroxaban [Xarelto] 15 mg PO HS 06/14/21 01/31/23 Cholecalciferol [Vitamin D3 (25 75 mcg PO DAILY 06/24/21 01/31/23 Mcg = 1000 Iu)] Magnesium Oxide [Mag-Ox] 250 mg PO DAILY 06/24/21 01/31/23 Potassium Gluconate [Potassium 99 mg PO DAILY 06/24/21 01/31/23 Gluconate ER] Psyllium Husk [Metamucil] 0.4 gm PO DAILY 12/27/22 01/31/23 Ubidecarenone [Coenzyme Q10] 200 mg PO DAILY 12/27/22 01/31/23 Previous Rx's Medication Instructions Recorded Diphenox-Atrop 2.5-0.025 mg 1 - 2 tab PO QID PRN 3 Days #24 tab 12/27/22 [Lomotil] Allergies Allergy/AdvReac Type Severity Reaction Status Date / Time adhesive tape Allergy Rash/Hives Verified 06/02/23 16:31 ibuprofen [From Motrin] Allergy Swelling & Verified 06/02/23 16:31 itching on entire body levofloxacin [From Levaquin] Allergy Rash/Hives Verified 06/02/23 16:31 Review of Systems ROS Other: All systems not noted in ROS Statement are negative. <Allison Barraza - Last Filed: 06/02/23 16:16> ROS Other: All systems not noted in ROS Statement are negative. <Waldo Palacios - Last Filed: 06/02/23 18:56> ROS Statement: Those systems with pertinent positive or pertinent negative responses have been documented in the HPI. Past Medical History Past Medical History: Memory Impairment, Myocardial Infarction ([place]), Thyroid Disorder Additional Past Medical History / Comment(s): hiatal hernia, hx basal skin cancer, hx diverticulitis Last Myocardial Infarction Date:: 04/2012 History of Any Multi-Drug Resistant Organisms: None Reported Past Surgical History: AICD, Bowel Resection, Breast Surgery, Cardiac Ablation, Cholecystectomy, Heart Catheterization, Hysterectomy, Orthopedic Surgery, Tonsillectomy Additional Past Surgical History / Comment(s): bilateral breast reduction 1995, arthroscopic rt knee, partial hysterectomy (bilateral ovaries retained), pacemaker battery replaced October 2018, right breast lumpectomy, TRK 05/07/22 Past Anesthesia/Blood Transfusion Reactions: No Reported Reaction Additional Past Anesthesia/Blood Transfusion Reaction / Comment(s): No blood transfusions to date (pt had an autolygous transfusion when undergoing bilateral breast reduction). Type of Cardiac Device: Permanent Pacemaker, AICD Device Placement Date:: 2006 (info from pt's med card [id number],model#[id number]) Past Psychological History: No Psychological Hx Reported Smoking Status: Former smoker Past Alcohol Use History: Rare Additional Past Alcohol Use History / Comment(s): smoked for 20 years 1 pack/wk quit 1995 Past Drug Use History: None Reported - Past Family History Mother Family Medical History: Cancer Additional Family Medical History / Comment(s): Colon cancer dx at age 74, at age 84. Sister(s) Family Medical History: Cancer, CVA/TIA, Deep Vein Thrombosis (DVT) Additional Family Medical History / Comment(s): pt has 2 sisters: sister #1: at age 79 from stroke complications (also had a hx of blood clots). sister #2: had a cancerous tumor on aortic valve. Son(s) Family Medical History: Deep Vein Thrombosis (DVT) Brother(s) Family Medical History: CVA/TIA, Deep Vein Thrombosis (DVT) Additional Family Medical History / Comment(s): She has 1 brother with a history of stroke and blood clot. Father Family Medical History: Congestive Heart Failure (CHF) <Allison Barraza - Last Filed: 06/02/23 16:16> General Exam <Allison Barraza - Last Filed: 06/02/23 16:16> <Waldo Palacios - Last Filed: 06/02/23 18:56> - General Exam Comments Initial Comments: Visual Physical Exam Vital signs reviewed General: Well-appearing, nontoxic, no acute distress. Head: Normocephalic, atraumatic Eyes: PERRLA, EOMI ENT: Airway patent Chest: Nonlabored breathing Skin: No visual rash, normal skin tone Neuro: Alert and oriented 3 Musculoskeletal: No gross abnormalities (Allison Barraza) GENERAL: Patient is well-developed and well-nourished. Patient is nontoxic and well- hydrated and is in no acute distress. ENT: Neck is soft and supple. No significant lymphadenopathy is noted. Oropharynx is clear. Moist mucous membranes. Neck has full range of motion without eliciting any pain. EYES: The sclera were anicteric and conjunctiva were pink and moist. Extraocular movements were intact and pupils were equal round and reactive to light. Eyelids were unremarkable. PULMONARY: Unlabored respirations. Good breath sounds bilaterally. No audible rales rhonchi or wheezing was noted. CARDIOVASCULAR: There is a regular rate and rhythm without any murmurs gallops or rubs. ABDOMEN: Soft and nontender with normal bowel sounds. SKIN: Skin is clear with no lesions or rashes and otherwise unremarkable. NEUROLOGIC: Patient is alert and oriented x3. Cranial nerves II through XII are grossly intact. Motor and sensory are also intact. Normal speech, volume and content. Symmetrical smile. MUSCULOSKELETAL: Normal extremities with adequate strength and full range of motion. No lower extremity swelling or edema. No calf tenderness. LYMPHATICS: No significant lymphadenopathy is noted PSYCHIATRIC: Normal psychiatric evaluation. (Waldo Palacios) Course Vital Signs 06/02/23 16:26 Temperature 98.1 F Pulse Rate 65 Respiratory 24 Rate Blood Pressure 103/52 O2 Sat by Pulse 97 Oximetry Medical Decision Making <Allison Barraza - Last Filed: 06/02/23 16:16> <Waldo Palacios - Last Filed: 06/02/23 18:56> - Medical Decision Making I performed the quick note portion of the exam. Electronically signed by Allison Barraza PA-C (Allison Barraza) Was pt. sent in by a medical professional or institution ([facility], ART TRACER, urgent care, hospital, or senior care...) When possible be specific @ -Patient's primary medical care doctor sent her in Did you speak to anyone other than the patient for history (EMS, parent, family, police, friend...)? What history was obtained from this source @ -Daughter gave quite a bit of a history Did you review nursing and triage notes (agree or disagree)? Why? @ -[I reviewed and agree with nursing and triage notes] Were old charts reviewed (outside hosp., previous admission, EMS record, old EKG, old radiological studies, urgent care reports/EKG's, senior care records)? Report findings @ -I reviewed prior charts in prior lab work on this patient Differential Diagnosis (chest pain, altered mental status, abdominal pain women, abdominal pain men, vaginal bleeding, weakness, fever, dyspnea, syncope, headache, dizziness, GI bleed, back pain, seizure, CVA, palpatations, mental health, musculoskeletal)? @ -Differential Dyspnea: Coronary syndrome, arrhythmia, tamponade, asthma, COPD, pulmonary embolism, pneumonia, pneumothorax, pulmonary effusion, anaphylaxis, diabetic ketoacidosis, flailed chest, pulmonary contusion, diaphragmatic rupture, anemia, neuromuscular, this is not meant to be an all-inclusive list. EKG interpreted by me (3pts min.). @ -[As above] X-rays interpreted by me (1pt min.). @ -Chest x-ray showed no acute abnormality CT interpreted by me (1pt min.). @ -[None done] U/S interpreted by me (1pt. min.). @ -[None done] What testing was considered but not performed or refused? (CT, X-rays, U/S, labs)? Why? @ -[None] What meds were considered but not given or refused? Why? @ -[None] Did you discuss the management of the patient with other professionals (professionals i.e. , PA, ART TRACER, lab, RT, psych nurse, social media director, film tests checker, teacher, foreign policy officer, case reviewer)? Give summary @ -[No] Was smoking cessation discussed for >3mins.? @ -[No] Was critical care preformed (if so, how long)? @ -[No] Were there social determinants of health that impacted care today? How? (Homelessness, low income, unemployed, alcoholism, drug addiction, transportation, low edu. Level, literacy, decrease access to med. care, fci, rehab)? @ -[No] Was there de-escalation of care discussed even if they declined (Discuss DNR or withdrawal of care, Hospice)? DNR status @ -[No] What co-morbidities impacted this encounter? (DM, HTN, Smoking, COPD, CAD, Cancer, CVA, ARF, Chemo, Hep., AIDS, mental health diagnosis, sleep apnea, morbid obesity)? @ -[None] Was patient admitted / discharged? Hospital course, mention meds given and route, prescriptions, significant lab abnormalities, going to OR and other pertinent info. @ -Patient was oxygenating between 98 100% on room air with her mask on she was in no distress. Patient had no other complaints than feeling fatigued and mildly short of breath but agree that it could just be her fatigue. Patient denies any other symptoms and states she feels comfortable going home at this time. Patient hard rate remains at 60 throughout her ED stay Drug Therapy requiring intensive monitoring for toxicity (Heparin, Nitro, I nsulin, Cardizem)? @ -[No] Were any procedures done? @ -[No] Diagnosis/symptom? @ -COVID Acute, or Chronic, or Acute on Chronic? @ -Acute Uncomplicated (without systemic symptoms) or Complicated (systemic symptoms)? @ -Uncomplicated Side effects of treatment? @ -[No] Exacerbation, Progression, or Severe Exacerbation? @ -[No] Poses a threat to life or bodily function? How? (Chest pain, [place], [place], pneumonia, PE, COPD, DKA, ARF, appy, cholecystitis, CVA, Diverticulitis, Homicidal, Suicidal, threat to staff... and all critical care pts) @ -[No] (Waldo Palacios) - Lab Data Lab Results 06/02/23 Range/Units 16:41 Influenza Type A (PCR) Not Detected (Not Detectd) Influenza Type B (PCR) Not Detected (Not Detectd) RSV (PCR) Not Detected (Not Detectd) SARS-CoV-2 (PCR) Detected A (Not Detectd) Disposition <Allison Barraza - Last Filed: 06/02/23 16:16> Is patient prescribed a controlled substance at d/c from ED?: No Time of Disposition: 18:55 <Waldo Palacios - Last Filed: 06/02/23 18:56> Clinical Impression: COVID-19 Disposition: HOME SELF-CARE Instructions (If sedation given, give patient instructions): COVID-19 (Coronavirus Disease 2019) (ED) Additional Instructions: Patient should return if symptoms worsen or she has any new symptoms. Referrals: Kostas Kunz MD [Primary Care Provider] - 1-2 days
[2023-06-02 16:45] VITALS: TEMP 98.1
--- NOTE | 2023-06-02 16:48 | XR ---
EXAMINATION TYPE: XR chest 2V DATE OF EXAM: 06/02/2023 4:44 PM CLINICAL INDICATION:Female, 82 years old with history of cough; COMPARISON: Chest radiographs from 06/24/2021. TECHNIQUE: XR chest 2V Frontal and lateral views of the chest. FINDINGS: Lungs/Pleura: There is no evidence of pleural effusion, focal consolidation, or pneumothorax. Pulmonary vascularity: Unremarkable. Heart/mediastinum: Cardiomediastinal silhouette is enlarged and stable. Three lead cardiac conduction device overlying the left hemithorax with lead tips projecting over the right ventricle, right atriu m and coronary sinus. Musculoskeletal: No acute osseous pathology. Other findings: None IMPRESSION: 1. No acute cardiopulmonary disease/process. 2. Cardiomegaly.
[2023-06-02 19:43] VITALS: BP 127/73; PULSE 67; RESP 22
== END 2023-06-02 19:25 | disposition home or self-care (01) ==
LOC: EC 15:48
DX: U07.1 COVID-19 (principal); I25.2 Old myocardial infarction; E07.9 Disorder of thyroid, unspecified; Z79.890 Hormone replacement therapy; Z79.899 Other long term (current) drug therapy; Z87.891 Personal history of nicotine dependence; Z88.1 Allergy status to other antibiotic agents; Z88.6 Allergy status to analgesic agent; Z90.49 Acquired absence of other specified parts of digestive tract
CPT/HCPCS: 71046; 87636; 99285

== ENCOUNTER → 2023-06-17 | Outpatient (CLI) | payer MEDICARE ==
[2023-06-17 10:54] LABS: HCT 38.5 % (37.2-46.3); HGB 12.3 g/dL (12.0-15.0); MCH 30.3 pg (27.0-32.0); MCHC 31.9 g/dL (32.0-37.0); MCV 94.8 FL (80.0-97.0); Mean Platelet Volume 10.8 FL (9.5-12.2); NRBC Per 100 WBC 0 X 10*3/uL (0.00-0.01); Platelet Count 189 X 10*3/uL (140-440); RBC 4.06 X 10*6/uL (4.10-5.20); RDW 13.6 % (11.5-14.5); WBC 13.65 X 10*3/uL (4.50-10.00)
[2023-06-17 15:30] LABS: Blood Urea Nitrogen 16.1 mg/dL (9.0-27.0); Chloride 104 mmol/L (96-109); Potassium 3.5 mmol/L (3.5-5.5); Sodium 146 mmol/L (135-145)
== END | disposition home or self-care (01) ==
LOC: LABPAT 08:11
PROVIDERS: ATTEND Internal Medicine Clinical Cardiac Electrophysiology
DX: Z01.812 Encounter for preprocedural laboratory examination (principal); I42.8 Other cardiomyopathies; I44.2 Atrioventricular block, complete; I50.9 Heart failure, unspecified
CPT/HCPCS: 36415; 80051; 82565; 84520; 85027

== ENCOUNTER 2023-06-26 09:04 | Day surgery (SDC) | payer MEDICARE ==
[~2023-06-26 09:04] MED LIST changes: -ACETAMINOPHEN TAB 500 MG TAB PO PRN; -GABAPENTIN 300 MG CAP PO PRN; -MELOXICAM 7.5 MG TAB PO PRN; -TRANEXAMIC ACID IN NACL,ISO-OS 1,000 MG in SALINE 1 100ML.BAG IVPB PRN; +VANCOMYCIN 0 MG in SODIUM CHLORIDE 0.9% 250 ML IVPB ONE; +ceFAZolin 1 GM in SODIUM CHLORIDE 0.9% IRRIG BTL 250 ML IRRIGATION PRN
[2023-06-26 10:06] LABS: ALT 19 U/L (4-34); AST 24 U/L (14-36); African American GFR (CKD) 68 (>60 ml/min/1.73 sqM); Alkaline Phosphatase 87 U/L (38-126); Anion Gap 13 mmol/L; Blood Urea Nitrogen 18 mg/dL (7-17); Calcium 8.9 mg/dL (8.4-10.2); Carbon Dioxide 30 mmol/L (22-30); Chloride 100 mmol/L (98-107); Glucose 106 mg/dL (74-99); Non-African American GFR(CKD) 59 (>60 ml/min/1.73 sqM); Potassium 3.3 mmol/L (3.5-5.1); Sodium 143 mmol/L (137-145); Total Protein 6.9 g/dL (6.3-8.2)
[2023-06-26] MEDS ORDERED: MIDAZOLAM 2 MG/2 ML VIAL ONE (12:38)
[2023-06-26] MEDS ORDERED: PHENYLEPHRINE-0.9% NACL SYG 1,000 MCG/10 ML SYRINGE ONE (12:38)
[2023-06-26] MEDS ORDERED: PROPOFOL 10 MG/ML 20 ML VIAL IV ONE (12:38)
[2023-06-26] MEDS ORDERED: fentaNYL (PF) 50 MCG/ML 2 ML AMP ONE (12:38)
[2023-06-26] MEDS ORDERED: ACETAMINOPHEN TAB 325 MG TAB PO PRN (15:36)
--- NOTE | 2023-06-26 15:40 | P.PCN ---
Preoperative Diagnosis: Transvenous temporary pacing procedure Indication for the procedure: Severe underlying bradycardia Patient was brought to the EP lab in a fasting state. Written informed consent was obtained prior to the procedure. The right groin was prepped and draped as a protocol. A 6-[place] sheath was placed in the right femoral vein. Via this, a temporary pacing catheter was placed in the right ventricle. Thresholds were interrogated. Temporary pacing was performed through the rest of the procedure. At the end of the entire procedure, the TVP was removed. The sheath was removed and hemostasis was assured. Patient tolerated the procedure well without any acute complications. Procedure performed Transvenous temporary pacing Left upper extremity venogram 15 mL every dye injected in the left arm Patent left subclavian and axillary venous system as well as the innominate vein
--- NOTE | 2023-06-26 15:57 | P.EPPROC ---
- EP Procedure Note Electrophysiology Procedure Note: Diagnosis Nonischemic cardiomyopathy Class II CHF chronic, on guide line directed medical treatment Persistent atrial fibrillation status post AV node ablation, Pacemaker dependency History of ventricular tachycardia Status post biventricular ICD, Medtronic device at [facility], High LV thresholds, old bipolar LV lead resulting in early battery depletion within 4 years Final diagnosis Successful biventricular ICD generator change LV lead insulation appeared disrupted LV thresholds were high 3 V at 1.5 ms Therefore, a new biventricular lead was implanted (LB) with excellent thresholds at 0.3 V at 0.4 ms Estimated battery longevity of greater than 8 years Final Result: Removal of chronic Bi V ICD generator and implantation of a new biventricular ICD generator New biventricular lead, with left bundle pacing. Pacing impedance 532 ohms. Pacing threshold 0.3 V at 0.4 ms Chronic Atrial lead: Patient in atrial fibrillation, pacing impedance 399 ohms, originally implanted in 05/28/2007 Chronic dual coil RV ICD lead: Originally implanted in 05/28/2007. RV coil impedance 37 ohms and SVC coil impedance 55 ohms Chronic Left ventricular lead: Originally implanted and 05/28/2007, model #[id number]. Pacing impedance 475 ohms and pacing threshold 5 V at 1 ms. Insulation integrity disrupted Hence a new biventricular lead implanted Procedure details: Patient was brought to the EP lab in a fasting state. Written informed consent was obtained prior to the procedure. Options, pros and cons, benefits and risks and complications discussed with patient in detail prior to the procedure (shared decision making) previously. Importance of continuing medical treatment emphasized previously. Alternatives discussed previously. Left upper extremity venogram performed. 15 mL IV dye injected in the left arm. Patent axillary/subclavian vein The left pectoral area was prepped and draped as a protocol. IV antibiotics administered 1% lidocaine was used for local anesthesia. A 4 cm incision was made parallel to the deltopectoral groove, about 1.5 cm medial to it. The incision was carried down to the level of the pectoralis muscle and the subfascial pocket was made. Hemostasis was assured. The axillary vein access was obtained. Appropriately sized introducer sheaths were placed. Conduction system pacing lead placement: Successful implantation of a left bundle pacing lead. Right bundle branch block morphology, stimulus-peak V6 = 73 ms #[id number] [employer] lead Placed in the RV port of the ICD Leads secured to the underlying pectoral muscle after removing sheaths . Pocket irrigated with antibiotic solution. Antibiotic pouch placed Leads connected to the biventricular ICD generator. Wound closed in 3 layers and dressed per protocol. Antibiotic pouch placed Pace sense lead of the ICD lead capped & secured Generator secured at 2 sites to the pectoralis muscle to prevent device migration Medtronic Biventricular ICD interrogated and programmed to VVIR mode with left bundle pacing Defibrillation level testing performed VF induced and successfully detected without dropouts Successfully internally defibrillated with 10 J shock Charge time 1.78 seconds Shocking impedance 37 ohms Appropriate pacing parameters, antitachycardia therapies with antitachycardia pacing cardioversion defibrillations programmed. VF at 214 beats a minute, for shock 20 J, detections 30 out of 40 signals VT zone 1 76 bpm with appropriate antitachycardia pacing First cardioversion 10 J Detection of 48 beats VT monitor zone 150 beats a minute, 80 beats detection Pacing mode VVIR 60-130
--- NOTE | 2023-06-26 16:03 | P.PN ---
Progress Note - Text Patient underwent implantation of a new biventricular pacemaker lead Old LV lead with high thresholds resulting in early battery depletion of less than 4 years Insulation integrity was very questionable Intraoperative thresholds for high The conduction system pacing lead was placed with excellent thresholds Excellent rapid activation of the left bundle Right bundle branch block pathology with a rapid peak to V6 of 73 ms Plan left bundle pacing for 3-4 months Follow-up echo thereafter to see this is an improvement of the LV function Follow-up exercise treadmill test to assess heart failure class with left bundle pacing
[2023-06-26] MEDS: VANCOMYCIN 1,250 MG in SODIUM CHLORIDE 0.9% 250 ML IVPB ONE (16:15)
[2023-06-26] MEDS: IV FLUID CONTINUATION 950 ML IV ONE (16:15)
[2023-06-26] MEDS: IOPAMIDOL-370 100ML BTL INJ ONE (16:15)
[2023-06-26] MEDS: LIDOCAINE 1% INJ 10MG/ML (20 ML MDV) SQ ONE ×2 (16:15)
[2023-06-26] MEDS: ACETAMINOPHEN IV (For NPO) 1,000 MG in EMPTY BAG 1 BAG IVPB ONE (16:30)
[2023-06-26] MEDS: SODIUM CHLORIDE 0.9% 1,000 ML IV SCH (16:31)
[2023-06-26] MEDS: ATORVASTATIN 20 MG TAB PO SCH (19:57)
[2023-06-26] MEDS: SACUBITRIL/VALSARTAN 24 MG-26 MG TABLET PO SCH (19:57)
[2023-06-26] MEDS: RIVAROXABAN 15 MG TAB PO SCH (19:57)
[2023-06-26] MEDS: HYDROcodone/APAP 5-325MG 1 EACH TAB PO PRN (20:35)
[2023-06-27 03:05] VITALS: PULSE 60
[2023-06-27] MEDS: LEVOTHYROXINE 75 MCG TAB PO SCH (05:47)
[2023-06-27 07:24] LABS: Basophils # (A) 0.1 k/uL (0-0.2); Basophils % (A) 1 %; Eosinophils # (A) 0.1 k/uL (0-0.7); Eosinophils % (A) 2 %; HCT 34.8 % (34.0-46.0); HGB 11.3 gm/dL (11.4-16.0); Lymphocytes # (A) 1.3 k/uL (1.0-4.8); Lymphocytes % (A) 18 %; MCH 31.4 pg (25.0-35.0); MCHC 32.3 g/dL (31.0-37.0); MCV 97.1 fL (80.0-100.0); Mean Platelet Volume 8.5; Monocytes # (A) 0.3 k/uL (0-1.0); Monocytes % (A) 5 %; Neutrophils # (A) 5.3 k/uL (1.3-7.7); Neutrophils % (A) 74 %; RBC 3.59 m/uL (3.80-5.40); RDW 13.3 % (11.5-15.5); WBC 7.1 k/uL (3.8-10.6)
--- NOTE | 2023-06-27 08:11 | P.DS ---
Providers Attending physician: Donny Mireles Primary care physician: Kostas Kunz [place] [facility] Course: Patient is doing well. She feels a little sore at the ICD site Minimal soakage no hematoma Otherwise no chest pain she is lying comfortably in bed no other symptoms On examination her blood pressure is normal 190 ms and millimeters of mercury pulse rate in the 60s Afebrile Heart sounds are normal Impression Severe nonischemic cardio myopathy Class II CHF on maximally tolerated medical treatment Mild hypokalemia despite spironolactone 25 mg by mouth daily. She is also on Lasix 40 mg twice daily and ENTRESTO Status post Bi V ICD with an LV lead was implanted in 2006. This was a bipolar lead and has very high thresholds This resulted written frequent, early battery replacements under 4 years Yesterday a new biventricular lead with left bundle pacing was implanted Excellent thresholds obtained She is left bundle paced at this time on twelve-lead EKG Plan Increase spironolactone to 50 mg by mouth daily Follow-up echo in about 2 months and a follow-up exercise treadmill test after 2 months to evaluate the impact of switching from LV pacing to left bundle pacing Considerations in the future include #1 left bundle pacing only Versus #2. Left bundle optimized LV pacing This will be based on her response to left bundle pacing which we will evaluate with LV function assessment and treadmill exercise stress test to assess heart failure status Continue maximally tolerated medical treatment Plan - Discharge Summary Discharge Rx Participant: No New Discharge Prescriptions: No Action RX: Furosemide [Lasix] 40 mg PO BID@0800,1500 RX: Spironolactone [Aldactone] 25 mg PO QAM RX: Levothyroxine Sodium [Synthroid] 75 mcg PO QAM RX: Sacubitril/Valsartan [Entresto 24 mg-26 mg Tablet] 1 tab PO BID RX: allopurinoL [Zyloprim] 100 mg PO HS RX: Metoprolol Succinate [Toprol XL] 200 mg PO QAM RX: Atorvastatin [Lipitor] 20 mg PO HS RX: Rivaroxaban [Xarelto] 15 mg PO HS RX: Cholecalciferol [Vitamin D3 (25 Mcg = 1000 Iu)] 75 mcg PO QAM Psyllium Husk [Metamucil] 0.4 gm PO DAILY PRN PRN Reason: Constipation Ubidecarenone [Coenzyme Q10] 200 mg PO QAM RX: Potassium Gluconate [Potassium Gluconate ER] 99 mg PO QAM Diphenox-Atrop 2.5-0.025 mg [Lomotil] 1 - 2 tab PO QID PRN 3 Days #24 tab PRN Reason: Diarrhea Discharge Medication List RX: Furosemide [Lasix] 40 mg PO BID@0800,1500 11/30/13 [History] RX: Spironolactone [Aldactone] 25 mg PO QAM 11/30/13 [History] RX: Levothyroxine Sodium [Synthroid] 75 mcg PO QAM 10/20/17 [History] RX: Sacubitril/Valsartan [Entresto 24 mg-26 mg Tablet] 1 tab PO BID 01/19/18 [History] RX: allopurinoL [Zyloprim] 100 mg PO HS 01/27/20 [History] RX: Atorvastatin [Lipitor] 20 mg PO HS 06/09/20 [History] RX: Metoprolol Succinate [Toprol XL] 200 mg PO QAM 06/09/20 [History] RX: Rivaroxaban [Xarelto] 15 mg PO HS 06/14/21 [History] RX: Cholecalciferol [Vitamin D3 (25 Mcg = 1000 Iu)] 75 mcg PO QAM 06/24/21 [History] RX: Potassium Gluconate [Potassium Gluconate ER] 99 mg PO QAM 06/24/21 [History] Diphenox-Atrop 2.5-0.025 mg [Lomotil] 1 - 2 tab PO QID PRN 3 Days #24 tab 12/27/22 [Rx] Psyllium Husk [Metamucil] 0.4 gm PO DAILY PRN 12/27/22 [History] Ubidecarenone [Coenzyme Q10] 200 mg PO QAM 12/27/22 [History] Follow up Appointment(s)/Referral(s): Donny Mireles MD [STAFF PHYSICIAN] - 07/04/23 3:00 pm (FOLLOW UP APPOINTMENT WITH [facility] )
[2023-06-27 08:15] VITALS: BP 113/71; RESP 16; TEMP 98
[2023-06-27 08:21] LABS: Platelet Count 93 k/uL (150-450)
[2023-06-27 08:22] LABS: RBC Morphology Normal
[2023-06-27] MEDS ORDERED: SPIRONOLACTONE 25 MG TAB PO SCH (09:00)
--- NOTE | 2023-06-27 09:01 | XR ---
EXAMINATION TYPE: XR chest 2V DATE OF EXAM: 06/27/2023 7:28 AM CLINICAL INDICATION:Female, 82 years old with history of Lead placement check; COMPARISON: Chest radiographs from 06/02/2023. TECHNIQUE: XR chest 2V Frontal and lateral views of the chest. FINDINGS: Lungs/Pleura: There is no evidence of pleural effusion, focal consolidation, or pneumothorax. Pulmonary vascularity: Unremarkable. Heart/mediastinum: Cardiomediastinal silhouette is enlarged and stable. Atherosclerotic calcificatio ns are seen in the aorta. 4 lead cardiac conduction device overlying the left hemithorax with lead ti ps projecting over the right ventricle, right atrium and heart apex. Musculoskeletal: No acute osseous pathology. Other findings: Non IMPRESSION: Cardiomegaly cardiac conduction device with leads in appropriate position.
[2023-06-27] MEDS: METOPROLOL SUCCINATE (ER) 100 MG TAB.ER.24H PO SCH (09:41)
[2023-06-27] MEDS: FUROSEMIDE 40 MG TAB PO SCH (09:42)
[2023-06-27] MEDS: SPIRONOLACTONE 25 MG TAB PO SCH (09:42)
== END 2023-06-27 11:21 | disposition home or self-care (01) ==
LOC: CATHEP 09:04 → 6NMEDSUR 15:28 → CATHEP 06-27 11:21
PROVIDERS: ATTEND Internal Medicine Clinical Cardiac Electrophysiology
DX: I50.9 Heart failure, unspecified (principal); I48.19 Other persistent atrial fibrillation; I10 Essential (primary) hypertension; E78.5 Hyperlipidemia, unspecified; F17.210 Nicotine dependence, cigarettes, uncomplicated; Z79.01 Long term (current) use of anticoagulants; Z79.51 Long term (current) use of inhaled steroids; Z79.899 Other long term (current) drug therapy; Z95.0 Presence of cardiac pacemaker; Z88.0 Allergy status to penicillin; Z88.1 Allergy status to other antibiotic agents; Z88.6 Allergy status to analgesic agent; Z91.048 Other nonmedicinal substance allergy status
CPT/HCPCS: 33225; 33264; 80053; 84443; 85025; 71046; C1769 ×4; C1894; C1760; C1882; C1730 ×2; C1887; C1892; J2250; J0690 ×2; J2001; J3010; J0131; J2704; Q9967; J2371

== ENCOUNTER 2023-07-22 07:29 | Emergency (ER) | payer MEDICARE ==
[2023-07-22 07:50] VITALS: RESP 18
[2023-07-22] MEDS ORDERED: MECLIZINE 25 MG TAB PO STA (07:50)
[2023-07-22] MEDS ORDERED: ONDANSETRON 4 MG/2 ML VIAL IVP STA (07:50)
[2023-07-22] MEDS ORDERED: SODIUM CHLORIDE 0.9% 1,000 ML IV ONE (07:51)
--- NOTE | 2023-07-22 07:53 | ED ---
General Adult HPI - General Chief complaint: Dizziness Stated complaint: Dizziness, Vomitting Time Seen by Provider: 07/22/23 07:40 Source: patient, EMS, RN notes reviewed, old records reviewed Mode of arrival: EMS Limitations: no limitations - History of Present Illness Initial comments: This is an 82-year-old female presents emergency Department complaining of dizziness. Patient states at 4:30 this morning she wasn't dizzy TO THE PAST ONE PACK TO BED WHEN SHE GOT UP THE SECOND TIME THE WHOLE ROOM WAS SPINNING SHE BECAME NAUSEATED BUT DID NOT VOMIT. PATIENT STATES SHE NEEDED TO HOLD ON SOME ARE ALSO THOUGHT SHE MIGHT FALL OVER. PATIENT CALLED THE AMBULANCE AND STATES SHE WAS A LITTLE BIT ANXIOUS BECAUSE OF ALL THIS DIZZINESS SHE'S NEVER EXPRESSED BEFORE. PATIENT DENIES HEADACHE PATIENT DENIES ANY NUMBNESS WEAKNESS. PATIENT DENIES CHEST PAIN DIFFICULT BREATHING SHORTNESS OF BREATH. PATIENT DENIES ANY FEVER CHILLS OR COUGH. PATIENT DENIES ANY TINNITUS OR - Related Data Home Medications Medication Instructions Recorded Confirmed Furosemide [Lasix] 40 mg PO BID@0800,1500 11/30/13 06/26/23 Levothyroxine Sodium [Synthroid] 75 mcg PO QAM 10/20/17 06/26/23 Sacubitril/Valsartan [Entresto 24 1 tab PO BID 01/19/18 06/26/23 mg-26 mg Tablet] allopurinoL [Zyloprim] 100 mg PO HS 01/27/20 06/26/23 Atorvastatin [Lipitor] 20 mg PO HS 06/09/20 06/26/23 Metoprolol Succinate [Toprol XL] 200 mg PO QAM 06/09/20 06/26/23 Rivaroxaban [Xarelto] 15 mg PO HS 06/14/21 06/26/23 Cholecalciferol [Vitamin D3 (25 75 mcg PO QAM 06/24/21 06/26/23 Mcg = 1000 Iu)] Potassium Gluconate [Potassium 99 mg PO QAM 06/24/21 06/26/23 Gluconate ER] Psyllium Husk [Metamucil] 0.4 gm PO DAILY PRN 12/27/22 06/26/23 Ubidecarenone [Coenzyme Q10] 200 mg PO QAM 12/27/22 06/26/23 Previous Rx's Medication Instructions Recorded Diphenox-Atrop 2.5-0.025 mg 1 - 2 tab PO QID PRN 3 Days #24 tab 12/27/22 [Lomotil] Spironolactone 50 mg PO DAILY #90 tablet 06/27/23 Meclizine [Antivert] 25 mg PO TID #20 tab 07/22/23 Allergies Allergy/AdvReac Type Severity Reaction Status Date / Time adhesive tape Allergy Rash/Hives Verified 07/22/23 07:44 ibuprofen [From Motrin] Allergy Swelling & Verified 07/22/23 07:44 itching on entire body levofloxacin [From Levaquin] Allergy Rash/Hives Verified 07/22/23 07:44 Review of Systems ROS Statement: Those systems with pertinent positive or pertinent negative responses have been documented in the HPI. ROS Other: All systems not noted in ROS Statement are negative. Past Medical History Past Medical History: Memory Impairment, Myocardial Infarction (NM), Thyroid Dis order Additional Past Medical History / Comment(s): hiatal hernia, hx basal skin cancer, hx diverticulitis Last Myocardial Infarction Date:: 04/2012 History of Any Multi-Drug Resistant Organisms: None Reported Past Surgical History: AICD, Bowel Resection, Breast Surgery, Cardiac Ablation, Cholecystectomy, Heart Catheterization, Hysterectomy, Orthopedic Surgery, Pacemaker, Tonsillectomy Additional Past Surgical History / Comment(s): bilateral breast reduction 1995, arthroscopic rt knee, partial hysterectomy (bilateral ovaries retained), pacemaker battery replaced October 2018, right breast lumpectomy, TRK 05/07/22 Past Anesthesia/Blood Transfusion Reactions: No Reported Reaction Additional Past Anesthesia/Blood Transfusion Reaction / Comment(s): No blood transfusions to date (pt had an autolygous transfusion when undergoing bilateral breast reduction). Type of Cardiac Device: Permanent Pacemaker, AICD Device Placement Date:: 2006 (info from pt's med card Hand Talk-BL [id number],model#[id number]) Past Psychological History: No Psychological Hx Reported, Anxiety Smoking Status: Never smoker Past Alcohol Use History: Occasional, Rare Past Drug Use History: None Reported - Past Family History Mother Family Medical History: Cancer Additional Family Medical History / Comment(s): Colon cancer dx at age 74, at age 84. Sister(s) Family Medical History: Cancer, CVA/TIA, Deep Vein Thrombosis (DVT) Additional Family Medical History / Comment(s): pt has 2 sisters: sister #1: at age 79 from stroke complications (also had a hx of blood clots). sister #2: had a cancerous tumor on aortic valve. Son(s) Family Medical History: Deep Vein Thrombosis (DVT) Brother(s) Family Medical History: CVA/TIA, Deep Vein Thrombosis (DVT) Additional Family Medical History / Comment(s): She has 1 brother with a history of stroke and blood clot. Father Family Medical History: Congestive Heart Failure (CHF) General Exam - General Exam Comments Initial Comments: GENERAL: Patient is well-developed and well-nourished. Patient is nontoxic and well-h ydrated and is in mild distress. ENT: Neck is soft and supple. No significant lymphadenopathy is noted. Oropharynx is clear. Moist mucous membranes. Neck has full range of motion without eliciting any pain. EYES: The sclera were anicteric and conjunctiva were pink and moist. Extraocular mov ements were intact and pupils were equal round and reactive to light. Eyelids were unremarkable. PULMONARY: Unlabored respirations. Good breath sounds bilaterally. No audible rales rhonchi or wheezing was noted. CARDIOVASCULAR: There is a regular rate and rhythm without any murmurs gallops or rubs. ABDOMEN: Soft and nontender with normal bowel sounds. SKIN: Skin is clear with no lesions or rashes and otherwise unremarkable. NEUROLOGIC: Patient is alert and oriented x3. Cranial nerves II through XII are grossly intact. Motor and sensory are also intact. Normal speech, volume and content. Symmetrical smile. Finger to nose testing is normal MUSCULOSKELETAL: Normal extremities with adequate strength and full range of motion. LYMPHATICS: No significant lymphadenopathy is noted PSYCHIATRIC: Normal psychiatric evaluation. Limitations: no limitations Course Vital Signs 07/22/23 07:39 Temperature 97.7 F Pulse Rate 79 Respiratory 18 Rate Blood Pressure 115/74 O2 Sat by Pulse 96 Oximetry Medical Decision Making - Medical Decision Making EKG is interpreted by myself. EKG shows paced rhythm at 60 bpm QRS is under QT intervals 2 QTC is 523. There is no ST segment elevation there is a little bit of ST segment depression in leads V4 through V6 which is not new Was pt. sent in by a medical professional or institution (, PA, OPERATIONAL METEOROLOGIST, urgent care, hospital, or care home...) When possible be specific @ -No Did you speak to anyone other than the patient for history (EMS, parent, family, police, friend...)? What history was obtained from this source @ -No Did you review nursing and triage notes (agree or disagree)? Why? @ -I reviewed and agree with nursing and triage notes Were old charts reviewed (outside hosp., previous admission, EMS record, old EKG, old radiological studies, urgent care reports/EKG's, care home records)? Report findings @ -I reviewed old chart and old lab work on this patient Differential Diagnosis (chest pain, altered mental status, abdominal pain women, abdominal pain men, vaginal bleeding, weakness, fever, dyspnea, syncope, headache, dizziness, GI bleed, back pain, seizure, CVA, palpatations, mental health, musculoskeletal)? @ -Differential Dizziness: Benign paroxysmal positional Vertigo, Menieres disease, otitis media, acoustic neuroma, vertebrobasilar insufficiency, cerebellar stroke, encephalitis, hypovolemic, arrhythmia, coronary artery syndrome, anemia, this is not meant to be an all-inclusive list EKG interpreted by me (3pts min.). @ -As above X-rays interpreted by me (1pt min.). @ -Chest x-ray shows no acute abnormality CT interpreted by me (1pt min.). @ -CT of the brain shows no acute abnormality U/S interpreted by me (1pt. min.). @ -None done What testing was considered but not performed or refused? (CT, X-rays, U/S, labs)? Why? @ -None What meds were considered but not given or refused? Why? @ -None Did you discuss the management of the patient with other professionals (professionals i.e. , PA, OPERATIONAL METEOROLOGIST, lab, RT, psych nurse, social sciences lecturer, fur glosser, teacher, chief risk officer, manager case)? Give summary @ -No Was smoking cessation discussed for >3mins.? @ -No Was critical care preformed (if so, how long)? @ -No Were there social determinants of health that impacted care today? How? (Homelessness, low income, unemployed, alcoholism, drug addiction, tra nsportation, low edu. Level, literacy, decrease access to med. care, half-way, rehab)? @ -No Was there de-escalation of care discussed even if they declined (Discuss DNR or withdrawal of care, Hospice)? DNR status @ -No What co-morbidities impacted this encounter? (DM, HTN, Smoking, COPD, CAD, Cancer, CVA, ARF, Chemo, Hep., AIDS, mental health diagnosis, sleep apnea, morbid obesity)? @ -None Was patient admitted / discharged? Hospital course, mention meds given and route, prescriptions, significant lab abnormalities, going to OR and other pertinent info. @ -Patient received fluids Antivert and Zofran in the emergency department is feeling considerably better. Patient's lab work came back within normal limits. Patient CT scan came back within normal limits. Patient be sent home with Antivert. Undiagnosed new problem with uncertain prognosis? @ -No Drug Therapy requiring intensive monitoring for toxicity (Heparin, Nitro, Insulin, Cardizem)? @ -No Were any procedures done? @ -No Diagnosis/symptom? @ -Vertigo Acute, or Chronic, or Acute on Chronic? @ -Acute Uncomplicated (without systemic symptoms) or Complicated (systemic symptoms)? @ -Complicated Side effects of treatment? @ -No Exacerbation, Progression, or Severe Exacerbation? @ -No Poses a threat to life or bodily function? How? (Chest pain, USA, NM, pneumonia, PE, COPD, DKA, ARF, appy, cholecystitis, CVA, Diverticulitis, Homicidal, Suicidal, threat to staff... and all critical care pts) @ -No - Lab Data Result diagrams: 07/22/23 08:03 07/22/23 08:03 Lab Results 07/22/23 07/22/23 07/22/23 Range/Units 08:03 08:03 08:03 WBC 7.9 (3.8-10.6) k/uL RBC 3.86 (3.80-5.40) m/uL Hgb 12.1 (11.4-16.0) gm/dL Hct 36.8 (34.0-46.0) % MCV 95.2 (80.0-100.0) fL MCH 31.3 (25.0-35.0) pg MCHC 32.9 (31.0-37.0) g/dL RDW 13.9 (11.5-15.5) % Plt Count 167 D (150-450) k/uL MPV 8.8 Neutrophils % 70 % Lymphocytes % 21 % Monocytes % 7 % Eosinophils % 1 % Basophils % 0 % Neutrophils # 5.5 (1.3-7.7) k/uL Lymphocytes # 1.7 (1.0-4.8) k/uL Monocytes # 0.5 (0-1.0) k/uL Eosinophils # 0.1 (0-0.7) k/uL Basophils # 0.0 (0-0.2) k/uL PT 14.7 H (10.0-12.5) sec INR 1.4 H (<1.2) APTT 29.0 (22.0-30.0) sec Sodium 141 (137-145) mmol/L Potassium 3.7 (3.5-5.1) mmol/L Chloride 107 (98-107) mmol/L Carbon Dioxide 27 (22-30) mmol/L Anion Gap 7 mmol/L BUN 35 H (7-17) mg/dL Creatinine 1.29 H (0.52-1.04) mg/dL Est GFR (CKD-EPI)AfAm 45 (>60 ml/min/1.73 sqM) Est GFR (CKD-EPI)NonAf 39 (>60 ml/min/1.73 sqM) Glucose 102 H (74-99) mg/dL Calcium 9.2 (8.4-10.2) mg/dL Magnesium 2.1 (1.6-2.3) mg/dL Total Bilirubin 0.7 (0.2-1.3) mg/dL AST 21 (14-36) U/L ALT 13 (4-34) U/L Alkaline Phosphatase 69 (38-126) U/L Troponin I (0.000-0.034) ng/mL Total Protein 6.6 (6.3-8.2) g/dL Albumin 3.8 (3.5-5.0) g/dL 07/22/23 Range/Units 08:03 WBC (3.8-10.6) k/uL RBC (3.80-5.40) m/uL Hgb (11.4-16.0) gm/dL Hct (34.0-46.0) % MCV (80.0-100.0) fL MCH (25.0-35.0) pg MCHC (31.0-37.0) g/dL RDW (11.5-15.5) % Plt Count (150-450) k/uL MPV Neutrophils % % Lymphocytes % % Monocytes % % Eosinophils % % Basophils % % Neutrophils # (1.3-7.7) k/uL Lymphocytes # (1.0-4.8) k/uL Monocytes # (0-1.0) k/uL Eosinophils # (0-0.7) k/uL Basophils # (0-0.2) k/uL PT (10.0-12.5) sec INR (<1.2) APTT (22.0-30.0) sec Sodium (137-145) mmol/L Potassium (3.5-5.1) mmol/L Chloride (98-107) mmol/L Carbon Dioxide (22-30) mmol/L Anion Gap mmol/L BUN (7-17) mg/dL Creatinine (0.52-1.04) mg/dL Est GFR (CKD-EPI)AfAm (>60 ml/min/1.73 sqM) Est GFR (CKD-EPI)NonAf (>60 ml/min/1.73 sqM) Glucose (74-99) mg/dL Calcium (8.4-10.2) mg/dL Magnesium (1.6-2.3) mg/dL Total Bilirubin (0.2-1.3) mg/dL AST (14-36) U/L ALT (4-34) U/L Alkaline Phosphatase (38-126) U/L Troponin I 0.022 (0.000-0.034) ng/mL Total Protein (6.3-8.2) g/dL Albumin (3.5-5.0) g/dL Disposition Clinical Impression: Vertigo Disposition: HOME SELF-CARE Condition: Good Instructions (If sedation given, give patient instructions): Vertigo (ED) Prescriptions: Meclizine [Antivert] 25 mg PO TID #20 tab Is patient prescribed a controlled substance at d/c from ED?: No Referrals: Kostas Kunz MD [Primary Care Provider] - 1-2 days Time of Disposition: 09:45
[2023-07-22 08:21] LABS: Basophils % (A) 0 %; Eosinophils # (A) 0.1 k/uL (0-0.7); Eosinophils % (A) 1 %; HCT 36.8 % (34.0-46.0); HGB 12.1 gm/dL (11.4-16.0); Lymphocytes # (A) 1.7 k/uL (1.0-4.8); Lymphocytes % (A) 21 %; MCH 31.3 pg (25.0-35.0); MCHC 32.9 g/dL (31.0-37.0); MCV 95.2 fL (80.0-100.0); Mean Platelet Volume 8.8; Monocytes # (A) 0.5 k/uL (0-1.0); Monocytes % (A) 7 %; Neutrophils # (A) 5.5 k/uL (1.3-7.7); Neutrophils % (A) 70 %; RBC 3.86 m/uL (3.80-5.40); RDW 13.9 % (11.5-15.5); WBC 7.9 k/uL (3.8-10.6)
[2023-07-22 08:33] LABS: INR 1.4 (<1.2); Prothrombin Time 14.7 sec (10.0-12.5)
[2023-07-22 08:38] LABS: Platelet Count 167 k/uL (150-450)
[2023-07-22 08:48] LABS: ALT 13 U/L (4-34); AST 21 U/L (14-36); African American GFR (CKD) 45 (>60 ml/min/1.73 sqM); Albumin 3.8 g/dL (3.5-5.0); Alkaline Phosphatase 69 U/L (38-126); Anion Gap 7 mmol/L; Blood Urea Nitrogen 35 mg/dL (7-17); Calcium 9.2 mg/dL (8.4-10.2); Carbon Dioxide 27 mmol/L (22-30); Chloride 107 mmol/L (98-107); Glucose 102 mg/dL (74-99); Magnesium 2.1 mg/dL (1.6-2.3); Non-African American GFR(CKD) 39 (>60 ml/min/1.73 sqM); Potassium 3.7 mmol/L (3.5-5.1); Sodium 141 mmol/L (137-145); Total Bilirubin 0.7 mg/dL (0.2-1.3); Total Protein 6.6 g/dL (6.3-8.2)
--- NOTE | 2023-07-22 08:51 | XR ---
EXAMINATION TYPE: XR chest 2V DATE OF EXAM: 07/22/2023 8:38 AM CLINICAL INDICATION:Female, 82 years old with history of Chest Pain; [facility] COMPARISON: Chest radiographs from 06/27/2023. TECHNIQUE: XR chest 2V Frontal and lateral views of the chest. FINDINGS: Lungs/Pleura: There is no evidence of pleural effusion, focal consolidation, or pneumothorax. Pulmonary vascularity: Unremarkable. Heart/mediastinum: Cardiomediastinal silhouette is enlarged and stable. Four lead cardiac conduction device overlying the left hemithorax with lead tips projecting over the right ventricle, right atrium and coronary sinus. Musculoskeletal: No acute osseous pathology. Other findings: None IMPRESSION: No acute cardiopulmonary disease/process.
--- NOTE | 2023-07-22 09:06 | CT ---
EXAMINATION TYPE: CT brain wo con DATE OF EXAM: 07/22/2023 COMPARISON: 05/16/2012 INDICATION: Dizziness DLP: 1138.4 mGycm, Automated exposure control for dose reduction was used. CONTRAST: None CT of the brain is performed utilizing 3 mm thick sections through the posterior fossa and 3 mm thick sections through the remaining calvarium. Study is performed within 24 hours of arrival to the hosp ital. No abnormal hyperdensity is present to suggest an acute intracranial hemorrhage. No mass lesion is evident. No acute infarcts are evident. There is periventricular white matter hypodensity, likely on the basis of chronic white matter ischemic changes. Findings are progressive from the comparison in 2011. Ventricles and sulci are appropriate for the patient age. Paranasal sinuses and mastoid air cells within the [id number] are clear. IMPRESSION: 1. Chronic appearing periventricular white matter ischemic-type changes. 2. Follow-up MRI can be performed as clinically indicated.
[2023-07-22 10:23] VITALS: BP 116/81; PULSE 76; TEMP 97.8
== END 2023-07-22 10:09 | disposition home or self-care (01) ==
LOC: EC 07:29
DX: R42 Dizziness and giddiness (principal); I25.2 Old myocardial infarction; E07.9 Disorder of thyroid, unspecified; Z79.890 Hormone replacement therapy; Z91.09 Other allergy status, other than to drugs and biological substances; Z88.6 Allergy status to analgesic agent; Z88.1 Allergy status to other antibiotic agents
CPT/HCPCS: 36415; 93005; 80053; 83735; 84484; 85025; 85610; 85730; 71046; 70450; 99285; 96374; 96361; J2405

== ENCOUNTER 2023-10-22 10:21 | Day surgery (SDC) | payer MEDICARE ==
[~2023-10-22 10:21] MED LIST changes: +HYDROmorphone 0.5 MG/0.5 ML SYRINGE IVP PRN; +LIDOCAINE 1% (10MG/ML) FOR IV START INTRADERMA PRN; -VANCOMYCIN 0 MG in SODIUM CHLORIDE 0.9% 250 ML IVPB ONE; -ceFAZolin 1 GM in SODIUM CHLORIDE 0.9% IRRIG BTL 250 ML IRRIGATION PRN; +droPERidol 5 MG/2 ML VIAL IVP ONE; +metroNIDAZOLE-NS PMX 500 MG in SALINE 1 100ML.BAG IVPB PRN
[2023-10-22 10:54] LABS: Glucose,Whole Blood 98 mg/dL (70-110)
[2023-10-22] MEDS: LACTATED RINGERS 1,000 ML IV SCH (11:01)
[2023-10-22] MEDS: DEXAMETHASONE SOD PHOSPHATE 4 MG/ML 1 ML VIAL IV ONE (11:02)
[2023-10-22] MEDS: FAMOTIDINE 20 MG/2 ML VIAL IV PRN (11:02)
[2023-10-22] MEDS: ONDANSETRON 4 MG/2 ML VIAL IVP ONE (11:02)
[2023-10-22 11:34] LABS: African American GFR (CKD) 39 (>60 ml/min/1.73 sqM); Anion Gap 9 mmol/L; Blood Urea Nitrogen 36 mg/dL (7-17); Calcium 9.2 mg/dL (8.4-10.2); Carbon Dioxide 25 mmol/L (22-30); Chloride 104 mmol/L (98-107); Glucose 102 mg/dL (74-99); Non-African American GFR(CKD) 34 (>60 ml/min/1.73 sqM); Potassium 4.5 mmol/L (3.5-5.1); Sodium 138 mmol/L (137-145)
[2023-10-22] MEDS ORDERED: PHENYLEPHRINE 10 MG/ML VIAL ONE (12:01)
[2023-10-22] MEDS ORDERED: SUCCINYLCHOLINE CHLORIDE 200 MG/10 ML VIAL IV ONE (12:01)
[2023-10-22] MEDS ORDERED: LIDOCAINE 1% INJ 10MG/ML (20 ML MDV) ONE (12:01)
[2023-10-22] MEDS ORDERED: PROPOFOL 10 MG/ML 20 ML VIAL IV ONE (12:01)
[2023-10-22] MEDS ORDERED: ePHEDrine 50 MG/ML 1 ML VIAL ONE (12:01)
[2023-10-22] MEDS ORDERED: fentaNYL (PF) 50 MCG/ML 2 ML AMP ONE (12:01)
[2023-10-22] MEDS: LIDOCAINE 2%-EPI 1:100,000 20 ML VIAL SQ ONE (12:26)
[2023-10-22] MEDS: BACITRACIN ZINC 500 UNIT/GM OINT 28.4 GM TUBE TOPICAL ONE ×2 (12:49→13:09)
--- NOTE | 2023-10-22 13:32 | P.OP ---
Date of Procedure: 10/22/23 Preoperative Diagnosis: right nasal alar skin lesion Postoperative Diagnosis: same, basal cell carcinoma Procedure(s) Performed: excision right nasal alar skin lesion 1.2 cm x 1.2 cm Full-thickness skin graft reconstruction right nasal alar defect 1.3 x 1.4 cm Anesthesia: BRIANA Surgeon: Richard Anaya Estimated Blood Loss (ml): 2 Pathology: other (right nasal alar skin lesion- basal cell carcinoma on frozen section with negative margins) Condition: stable Disposition: PACU Indications for Procedure: this is an 82-year-old white female who has had a right nasal alar skin lesion which is nonhealing for several months. Operative Findings: ulcerated skin lesion right nasal alar approximately 8 mm with eschar- basal cell carcinoma on frozen section with negative margins Description of Procedure: the patient was brought in the operative suite and placed in a supine position. Patient underwent induction of general anesthesia with oral endotracheal intubation without difficulty. Patient prepped and draped in usual aseptic fashion. 1% lidocaine with [id number] epinephrine was infused cutaneously and field block fashion on the right nasal alar as well as the right postauricular area for possible skin graft. Since was left for 7 minutes vasoconstrictive effect. The skin lesion on the right nasal alar was excised grossly entirely sent for frozen section and this returned as basal cell carcinoma with negative margins. Excellent hemostasis was noted with electrocautery. A full-thickness skin graft was then harvested from the right postauricular area in elliptical fashion. This was carried sharply through the skin and subcutaneous tissue and subcutaneous layer with the graft harvested. The edges of the wound are undermined hemostasis gained with electrocautery and the wound was closed in the subcutaneous layer with inverted interrupted 4-0 Vicryl suture skin closed with running locking 4-0 Prolene suture. Bacitracin ointment and sterile dressing were placed. The skin graft was defatted and then cut to the appropriate size and shape from the right nasal alar and sutured circumferentially with simple interrupted 5-0 Vicryl sutures left long. These were then tied over a bolster consisting with Adaptic covering a bacitracin impregnated cotton ball. The patient was then allowed to emerge from general anesthesia having tolerated procedure well was extubated in the operating suite and transferred to the postop recovery area in satisfactory condition.
[2023-10-22 13:57] VITALS: TEMP 97.1
[2023-10-22 14:00] LABS: Glucose,Whole Blood 127 mg/dL (70-110)
[2023-10-22 14:42] VITALS: RESP 16
[2023-10-22 15:28] VITALS: BP 100/60; PULSE 60
== END 2023-10-22 15:24 | disposition home or self-care (01) ==
LOC: OR 10:21
PROVIDERS: ATTEND Otolaryngology
DX: C44.391 Other specified malignant neoplasm of skin of nose (principal); I48.91 Unspecified atrial fibrillation; I10 Essential (primary) hypertension; E78.5 Hyperlipidemia, unspecified; E07.9 Disorder of thyroid, unspecified; I25.2 Old myocardial infarction; F10.90 Alcohol use, unspecified, uncomplicated; Z88.1 Allergy status to other antibiotic agents; Z88.6 Allergy status to analgesic agent; Z90.710 Acquired absence of both cervix and uterus; Z98.890 Other specified postprocedural states; Z79.899 Other long term (current) drug therapy; Z87.891 Personal history of nicotine dependence; Z95.5 Presence of coronary angioplasty implant and graft
CPT/HCPCS: 88305; 80048; 88331; 88332; 15260; J0330; J1100; J0690; J2405; J2001; J3010; J3490; J2704; J2371

== ENCOUNTER 2023-11-21 11:54 | Inpatient (IN) | payer MEDICARE ==
--- NOTE | 2023-11-21 12:40 | ED ---
Abdominal Pain HPI - General Source: patient, RN notes reviewed Mode of arrival: ambulatory Limitations: no limitations <Allison Barraza - Last Filed: 11/21/23 12:39> - General Source: RN notes reviewed <Cinthya Brady - Last Filed: 11/21/23 18:48> - General Chief Complaint: Abdominal Pain Stated Complaint: Abd pain Time Seen by Provider: 11/21/23 12:39 - History of Present Illness Initial Comments: Quick note: 82-year-old female presented to the ER with chief complaint of lower abdominal pain. Patient has a past medical history significant of div erticulitis and she reports this feels similar. She denies any nausea, vomiting or fevers. She does report recent diarrhea with bright red blood in her stool. She is unsure if it is GI bleed or hemorrhoids. (Allison Barraza) 82-year-old female with history of diverticulitis presenting to the ER with right lower quadrant abdominal pain x 2 days with bloody diarrhea. Reports the blood is bright red and present both in the toilet bowl and on toilet paper when she wipes. States bowel movements are very painful. States she has a history of diverticulitis and this feels similar. Denies fever, nausea, vomiting, dysuria, urinary frequency. (Cinthya Brady) - Related Data Home Medications Medication Instructions Recorded Confirmed Furosemide [Lasix] 40 mg PO BID@0800,1500 11/30/13 11/21/23 Levothyroxine Sodium [Synthroid] 75 mcg PO DAILY 10/20/17 11/21/23 Sacubitril/Valsartan [Entresto 24 1 tab PO BID 01/19/18 11/21/23 mg-26 mg Tablet] allopurinoL [Zyloprim] 100 mg PO HS 01/27/20 11/21/23 Atorvastatin [Lipitor] 20 mg PO HS 06/09/20 11/21/23 Metoprolol Succinate [Toprol XL] 200 mg PO DAILY 06/09/20 11/21/23 Rivaroxaban [Xarelto] 15 mg PO HS 06/14/21 11/21/23 Cholecalciferol [Vitamin D3 (25 75 mcg PO DAILY 06/24/21 11/21/23 Mcg = 1000 Iu)] Potassium Gluconate [Potassium 99 mg PO DAILY 06/24/21 11/21/23 Gluconate ER] Ubidecarenone [Coenzyme Q10] 200 mg PO DAILY 12/27/22 11/21/23 Magnesium 250 mg PO DAILY 11/21/23 11/21/23 Spironolactone [Aldactone] 25 mg PO DAILY 11/21/23 11/21/23 Allergies Allergy/AdvReac Type Severity Reaction Status Date / Time adhesive tape Allergy Rash/Hives Verified 11/21/23 16:19 ibuprofen [From Motrin] Allergy Swelling & Verified 11/21/23 16:19 itching on entire body levofloxacin [From Levaquin] Allergy Rash/Hives Verified 11/21/23 16:19 Review of Systems ROS Other: All systems not noted in ROS Statement are negative. <Allison Barraza - Last Filed: 11/21/23 12:39> ROS Other: All systems not noted in ROS Statement are negative. <Cinthya Brady - Last Filed: 11/21/23 18:48> ROS Statement: Those systems with pertinent positive or pertinent negative responses have been documented in the HPI. Past Medical History Past Medical History: Atrial Fibrillation, Cancer, Deep Vein Thrombosis (DVT), Hearing Disorder / Deafness, Hyperlipidemia, Hypertension, Myocardial Infarction (IA), Osteoarthritis (OA), Syncope, Thyroid Disorder Additional Past Medical History / Comment(s): hiatal hernia, hx basal skin cancer, hx diverticulitis, rt ear deaf . PIERSON left ear. hx of syncope. Flu A 5 weeks ago. Breast cancer >5 yrs ago. no chemo or radiation. blood clot to left ankle. growth to rt nostril. Last Myocardial Infarction Date:: 04/2012 History of Any Multi-Drug Resistant Organisms: None Reported Past Surgical History: AICD, Bowel Resection, Breast Surgery, Cardiac Ablation, Cholecystectomy, Heart Catheterization, Hysterectomy, Joint Replacement, Orthopedic Surgery, Pacemaker, Tonsillectomy Additional Past Surgical History / Comment(s): bilateral breast reduction 1995, arthroscopic rt knee, partial hysterectomy (bilateral ovaries retained), pacemaker battery replaced 2022, right breast lumpectomy, TRK 05/07/22 Past Anesthesia/Blood Transfusion Reactions: No Reported Reaction Additional Past Anesthesia/Blood Transfusion Reaction / Comment(s): No blood transfusions to date (pt had an autolygous transfusion when undergoing bilateral breast reduction). Type of Cardiac Device: Permanent Pacemaker, AICD Device Placement Date:: 2006 (info from pt's med card medtronic- [id number],model#[id number]) Past Psychological History: No Psychological Hx Reported Smoking Status: Former smoker Past Alcohol Use History: None Reported Past Drug Use History: None Reported - Past Family History Mother Family Medical History: Cancer Additional Family Medical History / Comment(s): Colon cancer dx at age 74, at age 84. Sister(s) Family Medical History: Cancer, CVA/TIA, Deep Vein Thrombosis (DVT) Additional Family Medical History / Comment(s): pt has 2 sisters: sister #1: at age 79 from stroke complications (also had a hx of blood clots). sister #2: had a cancerous tumor on aortic valve. Son(s) Family Medical History: Deep Vein Thrombosis (DVT) Brother(s) Family Medical History: CVA/TIA, Deep Vein Thrombosis (DVT) Additional Family Medical History / Comment(s): She has 1 brother with a history of stroke and blood clot. Father Family Medical History: Congestive Heart Failure (CHF) <Allison Barraza - Last Filed: 11/21/23 12:39> General Exam Limitations: no limitations <Allison Barraza - Last Filed: 11/21/23 12:39> General appearance: alert, in no apparent distress Head exam: Present: atraumatic, normocephalic, normal inspection Eye exam: Present: normal appearance, PERRL, EOMI. Absent: scleral icterus, conjunctival injection, periorbital swelling ENT exam: Present: normal exam, mucous membranes moist Neck exam: Present: normal inspection. Absent: tenderness, meningismus, lymphadenopathy Respiratory exam: Present: normal lung sounds bilaterally. Absent: respiratory distress, wheezes, rales, rhonchi, stridor Cardiovascular Exam: Present: regular rate, normal rhythm, normal heart sounds. Absent: systolic murmur, diastolic murmur, rubs, gallop, clicks GI/Abdominal exam: Present: soft, tenderness (+ttp in right lower quadrant of abdomen, mild tenderness in epigastric area), normal bowel sounds. Absent: distended, guarding, rebound, rigid Extremities exam: Present: normal inspection, full ROM, normal capillary refill. Absent: tenderness, pedal edema, joint swelling, calf tenderness Back exam: Present: normal inspection. Absent: CVA tenderness (R), CVA tenderness (L) Neurological exam: Present: alert, oriented X3, CN II-XII intact Psychiatric exam: Present: normal affect, normal mood Skin exam: Present: warm, dry, intact, normal color. Absent: rash <Cinthya Brady - Last Filed: 11/21/23 18:48> - General Exam Comments Initial Comments: Visual Physical Exam Vital signs reviewed General: Well-appearing, nontoxic, no acute distress. Head: Normocephalic, atraumatic Eyes: PERRLA, EOMI ENT: Airway patent Chest: Nonlabored breathing Skin: No visual rash, normal skin tone Neuro: Alert and oriented 3 Musculoskeletal: No gross abnormalities (Allison Barraza) Course Vital Signs 11/21/23 11/21/23 11/21/23 12:10 14:35 15:52 Temperature 98.2 F 98.4 F 98.2 F Pulse Rate 67 60 70 Respiratory 20 20 14 Rate Blood Pressure 94/49 125/57 108/76 O2 Sat by Pulse 99 98 97 Oximetry 11/21/23 16:50 Temperature Pulse Rate 64 Respiratory 17 Rate Blood Pressure 102/62 O2 Sat by Pulse 98 Oximetry Medical Decision Making <Allison Barraza - Last Filed: 11/21/23 12:39> - Lab Data Result diagrams: 11/21/23 13:20 11/21/23 13:20 <Cinthya Brady - Last Filed: 11/21/23 18:48> - Medical Decision Making I performed the quick note portion of this chart. Electronically signed by Allison Barraza PA-C (Allison Barraza) Was pt. sent in by a medical professional or institution ([facility], [facility], urgent care, hospital, or correction...) When possible be specific @ -Sent in by PCP Dr. Kunz's office for possible diverticulitis versus GI bleed Did you speak to anyone other than the patient for history (EMS, parent, family, police, friend...)? What history was obtained from this source @ -Patient's daughter supplemented history Did you review nursing and triage notes (agree or disagree)? Why? @ -I reviewed and agree with nursing and triage notes Were old charts reviewed (outside hosp., previous admission, EMS record, old EKG, old radiological studies, urgent care reports/EKG's, correction records)? Report findings @ -No old charts were reviewed Differential Diagnosis (chest pain, altered mental status, abdominal pain women, abdominal pain men, vaginal bleeding, weakness, fever, dyspnea, syncope, headache, dizziness, GI bleed, back pain, seizure, CVA, palpatations, mental health, musculoskeletal)? @ -Differential Abdominal Pain Women: Appendicitis, Cholecystitis, diverticulosis, ischemic bowel, pancreatitis, hepatitis, UTI, gastroenteritis, AAA, incarcerated hernia, bowel obstruction, constipation, inflammatory bowel, hepatitis, peptic ulcer disease, splenic infa rction, perforated viscus, vulvitis, ovarian torsion, PID, kidney stone, placenta abruption, this is not meant to be an all-inclusive list EKG interpreted by me (3pts min.). @ -None X-rays interpreted by me (1pt min.). @ -None done CT interpreted by me (1pt min.). @ -CT of abdomen pelvis revealed abnormal findings involving the colon and right upper quadrant may be related to focal colitis or diverticulitis, there is evidence of adjacent contained perforation, possibility of underlying neoplasm U/S interpreted by me (1pt. min.). @ -None done What testing was considered but not performed or refused? (CT, X-rays, U/S, labs)? Why? @ -None What meds were considered but not given or refused? Why? @ -None Did you discuss the management of the patient with other professionals (professionals i.e. , PA, [facility], lab, RT, psych nurse, social services coordinator, filter bed placer, teacher, command center officer, mattress spring encaser)? Give summary @ -Case discussed with Dr. Kunz who is patient's PCP and he accepted admission at this time due to diverticulitis with possibility of contained perforation. Case discussed with Dr. Mata as well who agreed surgery should be consulted for this case. Was smoking cessation discussed for >3mins.? @ -No Was critical care preformed (if so, how long)? @ -No Were there social determinants of health that impacted care today? How? (Homelessness, low income, unemployed, alcoholism, drug addiction, transportation, low edu. Level, literacy, decrease access to med. care, alf, rehab)? @ -No Was there de-escalation of care discussed even if they declined (Discuss DNR or withdrawal of care, Hospice)? DNR status @ -No What co-morbidities impacted this encounter? (DM, HTN, Smoking, COPD, CAD, Cancer, CVA, ARF, Chemo, Hep., AIDS, mental health diagnosis, sleep apnea, morbid obesity)? @ -None Was patient admitted / discharged? Hospital course, mention meds given and route, prescriptions, significant lab abnormalities, going to OR and other pertinent info. @ -Patient was admitted. Patient was seen and evaluated for right lower quadrant pain x 2 days with bright red bloody diarrhea. Vitals are stable. Physical examination is remarkable for tenderness and right lower quadrant. Patient's pain is improved with morphine. White blood cell count is 16, patient is hyperkalemic at 6.0. CT revealed abnormal findings involving the colon and right upper quadrant that may be related to focal colitis or diverticulitis, there is evidence of adjacent contained perforation. Discussed diagnosis of diverticulitis with possible contained perforation with patient and daughter. Case discussed with Dr. Kunz who accepts admission at this time, case also discussed with Dr. Mata will be consulted on this case. Blood cultures taken, IV Zosyn started. 5 g [place] given for hyperkalemia as instructed by Dr. Kunz. Case discussed with Dr. Abernathy. Undiagnosed new problem with uncertain prognosis? @ -No Drug Therapy requiring intensive monitoring for toxicity (Heparin, Nitro, Insulin, Cardizem)? @ -No Were any procedures done? @ -No Diagnosis/symptom? @ -Acute diverticulitis with possibility of contained perforation, hyperkalemia Acute, or Chronic, or Acute on Chronic? @ -Acute Uncomplicated (without systemic symptoms) or Complicated (systemic symptoms)? @ -Complicated Side effects of treatment? @ -No Exacerbation, Progression, or Severe Exacerbation? @ -No Poses a threat to life or bodily function? How? (Chest pain, USA, IA, pneumonia, PE, COPD, DKA, ARF, appy, cholecystitis, CVA, Diverticulitis, Homicidal, Suicidal, threat to staff... and all critical care pts) @ -Yes, diverticulitis with possibility of contained perforation (Cinthya Brady) - Lab Data Lab Results 11/21/23 11/21/23 11/21/23 Range/Units 13:20 13:20 13:20 WBC 16.1 H (3.8-10.6) k/uL RBC 4.01 (3.80-5.40) m/uL Hgb 12.4 (11.4-16.0) gm/dL Hct 37.7 (34.0-46.0) % MCV 94.1 (80.0-100.0) fL MCH 30.9 (25.0-35.0) pg MCHC 32.8 (31.0-37.0) g/dL RDW 14.1 (11.5-15.5) % Plt Count 214 (150-450) k/uL MPV 9.3 Neutrophils % 84 % Lymphocytes % 8 % Monocytes % 6 % Eosinophils % 1 % Basophils % 0 % Neutrophils # 13.5 H (1.3-7.7) k/uL Lymphocytes # 1.3 (1.0-4.8) k/uL Monocytes # 1.0 (0-1.0) k/uL Eosinophils # 0.1 (0-0.7) k/uL Basophils # 0.0 (0-0.2) k/uL Sodium 135 L (137-145) mmol/L Potassium 6.0 H (3.5-5.1) mmol/L Chloride 103 (98-107) mmol/L Carbon Dioxide 21 L (22-30) mmol/L Anion Gap 11 mmol/L BUN 73 H (7-17) mg/dL Creatinine 2.21 H (0.52-1.04) mg/dL Est GFR (CKD-EPI)AfAm 24 (>60 ml/min/1.73 sqM) Est GFR (CKD-EPI)NonAf 21 (>60 ml/min/1.73 sqM) Glucose 117 H (74-99) mg/dL Plasma Lactic Acid Chris (0.7-2.0) mmol/L Calcium 9.8 (8.4-10.2) mg/dL Total Bilirubin 1.8 H (0.2-1.3) mg/dL AST 20 (14-36) U/L ALT 11 (4-34) U/L Alkaline Phosphatase 86 (38-126) U/L Total Protein 7.4 (6.3-8.2) g/dL Albumin 4.3 (3.5-5.0) g/dL Amylase 76 (30-110) U/L Lipase 376 H (23-300) U/L Urine Color Colorless Urine Appearance Cloudy H (Clear) Urine pH 5.0 (5.0-8.0) Ur Specific [place] 1.011 (1.001-1.035) Urine Protein Negative (Negative) Urine Glucose (UA) Negative (Negative) Urine Ketones Negative (Negative) Urine Blood Negative (Negative) Urine Nitrite Negative (Negative) Urine Bilirubin Negative (Negative) Urine Urobilinogen <2.0 (<2.0) mg/dL Ur Leukocyte Esterase Negative (Negative) Urine RBC <1 (0-5) /hpf Urine WBC 1 (0-5) /hpf Ur Squamous Epith Cells <1 (0-4) /hpf Urine Mucus Rare H (None) /hpf 11/21/23 Range/Units 13:20 WBC (3.8-10.6) k/uL RBC (3.80-5.40) m/uL Hgb (11.4-16.0) gm/dL Hct (34.0-46.0) % MCV (80.0-100.0) fL MCH (25.0-35.0) pg MCHC (31.0-37.0) g/dL RDW (11.5-15.5) % Plt Count (150-450) k/uL MPV Neutrophils % % Lymphocytes % % Monocytes % % Eosinophils % % Basophils % % Neutrophils # (1.3-7.7) k/uL Lymphocytes # (1.0-4.8) k/uL Monocytes # (0-1.0) k/uL Eosinophils # (0-0.7) k/uL Basophils # (0-0.2) k/uL Sodium (137-145) mmol/L Potassium (3.5-5.1) mmol/L Chloride (98-107) mmol/L Carbon Dioxide (22-30) mmol/L Anion Gap mmol/L BUN (7-17) mg/dL Creatinine (0.52-1.04) mg/dL Est GFR (CKD-EPI)AfAm (>60 ml/min/1.73 sqM) Est GFR (CKD-EPI)NonAf (>60 ml/min/1.73 sqM) Glucose (74-99) mg/dL Plasma Lactic Acid Chris 1.0 (0.7-2.0) mmol/L Calcium (8.4-10.2) mg/dL Total Bilirubin (0.2-1.3) mg/dL AST (14-36) U/L ALT (4-34) U/L Alkaline Phosphatase (38-126) U/L Total Protein (6.3-8.2) g/dL Albumin (3.5-5.0) g/dL Amylase (30-110) U/L Lipase (23-300) U/L Urine Color Urine Appearance (Clear) Urine pH (5.0-8.0) Ur Specific [place] (1.001-1.035) Urine Protein (Negative) Urine Glucose (UA) (Negative) Urine Ketones (Negative) Urine Blood (Negative) Urine Nitrite (Negative) Urine Bilirubin (Negative) Urine Urobilinogen (<2.0) mg/dL Ur Leukocyte Esterase (Negative) Urine RBC (0-5) /hpf Urine WBC (0-5) /hpf Ur Squamous Epith Cells (0-4) /hpf Urine Mucus (None) /hpf Disposition <Allison Barraza - Last Filed: 11/21/23 12:39> Time of Disposition: 18:43 <Cinthya Brady - Last Filed: 11/21/23 18:48> Clinical Impression: Acute diverticulitis Disposition: ADMITTED IP TO THIS HOSP Condition: Stable Referrals: Kostas Kunz MD [Primary Care Provider] - 1-2 days
[2023-11-21 13:52] LABS: Basophils % (A) 0 %; Eosinophils # (A) 0.1 k/uL (0-0.7); Eosinophils % (A) 1 %; HCT 37.7 % (34.0-46.0); HGB 12.4 gm/dL (11.4-16.0); Lymphocytes # (A) 1.3 k/uL (1.0-4.8); Lymphocytes % (A) 8 %; MCH 30.9 pg (25.0-35.0); MCHC 32.8 g/dL (31.0-37.0); MCV 94.1 fL (80.0-100.0); Mean Platelet Volume 9.3; Monocytes % (A) 6 %; Neutrophils # (A) 13.5 k/uL (1.3-7.7); Neutrophils % (A) 84 %; Platelet Count 214 k/uL (150-450); RBC 4.01 m/uL (3.80-5.40); RDW 14.1 % (11.5-15.5); WBC 16.1 k/uL (3.8-10.6)
[2023-11-21 14:25] LABS: ALT 11 U/L (4-34); AST 20 U/L (14-36); African American GFR (CKD) 24 (>60 ml/min/1.73 sqM); Albumin 4.3 g/dL (3.5-5.0); Alkaline Phosphatase 86 U/L (38-126); Amylase 76 U/L (30-110); Anion Gap 11 mmol/L; Blood Urea Nitrogen 73 mg/dL (7-17); Calcium 9.8 mg/dL (8.4-10.2); Carbon Dioxide 21 mmol/L (22-30); Chloride 103 mmol/L (98-107); Glucose 117 mg/dL (74-99); Lipase 376 U/L (23-300); Non-African American GFR(CKD) 21 (>60 ml/min/1.73 sqM); Sodium 135 mmol/L (137-145); Total Bilirubin 1.8 mg/dL (0.2-1.3); Total Protein 7.4 g/dL (6.3-8.2)
[2023-11-21] MEDS: MORPHINE SULFATE 2 MG/ML SYRINGE IVP ONE ×2 (14:44→16:53)
[2023-11-21 16:14] LABS: Appearance,Urine Cloudy (Clear); Bilirubin,Urine Negative (Negative); Blood,Urine Negative (Negative); Color,Urine Colorless; Glucose,Urine (UA) Negative (Negative); Ketones,Urine Negative (Negative); Leukocyte Esterase,Urine Negative (Negative); Mucus,Urine Rare /hpf; Nitrite,Urine Negative (Negative); Protein,Urine Negative (Negative); RBC,Urine <1 /hpf (0-5); Specific Gravity,Urine 1.011 (1.001-1.035); Squamous Epithelial Cell,Urine <1 /hpf (0-4); Urobilinogen,Urine <2.0 mg/dL (<2.0); WBC,Urine 1 /hpf (0-5)
--- NOTE | 2023-11-21 17:05 | CT ---
EXAMINATION TYPE: CT abdomen pelvis wo con CT DLP: 725.6 mGycm, Automated exposure control for dose reduction was used. DATE OF EXAM: 11/21/2023 3:31 PM COMPARISON: CT 12/27/2022 CLINICAL INDICATION:Female, 82 years old with history of RLQ abdominal pain, diverticulitis suspected ; RLQ abdominal pain, diverticulitis suspected TECHNIQUE: Axial CT of the abdomen and pelvis. Sagittal and coronal reformats were created on a [employer] workstation. Contrast used: mL of , (none if empty) Oral contrast used: without Oral Contrast (none if empty) FINDINGS: Exam limited without IV contrast. LUNG BASES: Dependent opacities in the lung bases consistent with subsegmental atelectasis. Moderate cardiomegaly with multilead pacemaker/defibrillator and coronary artery calcifications redemonstrated . Coronary artery calcification is again seen. ABDOMEN LIVER, GALLBLADDER AND BILE DUCTS: Stable small hepatic hypodensities consistent with cysts. Cholecys tectomy clips. PANCREAS: Unremarkable. SPLEEN: Unremarkable. ADRENAL GLANDS: Slightly thickened and small nodular appearance of the adrenals, could be due to hype rplasia and/or adenomatoid changes.. KIDNEYS AND URETERS: There is a 4 cm cyst in the mid to lower pole of left kidney. No renal/ureteral calculi or hydronephrosis. PELVIS BLADDER: Unremarkable REPRODUCTIVE: Organs are not seen correlate with history ABDOMEN & PELVISBMB STOMACH AND BOWEL: Stomach and small bowel are nondistended, no evidence of obstruction. Appendix i s not visualized. Along the ascending colon and including the hepatic flexure, there are moderately severe inflammatory changes surrounding the colon, with fat stranding present and an area of apparent ly extraluminal density and a couple gaseous foci which may represent contained perforation. Continu ing distally, there are a few scattered colonic diverticula seen without signs of diverticulitis. A colonic-colonic anastomosis is seen in the sigmoid region. PERITONEUM/RETROPERITONEUM: No evidence of pneumoperitoneum or free fluid otherwise demonstrated. VASCULATURE: Moderate atherosclerotic calcifications are present throughout the abdominal aorta and i ts branches. No evidence of aortic aneurysm. LYMPH NODES: No enlarged nodes by CT size criteria. SOFT TISSUE/ABDOMINAL WALL: Unremarkable MUSCULOSKELETAL: Eventration noted along the right more than left hemidiaphragm. Portion of the hepat ic dome protrudes cranially. No acute osseous abnormalities. Mild/moderate degenerative changes of t he lumbar spine greatest at L3-L4. IMPRESSION: 1. Abnormal findings involving colon in the right upper quadrant may be related to focal colitis or diverticulitis. There is evidence suggesting adjacent contained perforation. The possibility of under lying neoplasm cannot be excluded. 2. Other chronic and likely incidental findings, as described above.
[2023-11-21] MEDS ORDERED: NALOXONE 0.4 MG/ML 1 ML VIAL IV PRN (18:19)
[2023-11-21] MEDS: PIPERACILLIN-TAZOBACTAM 3.375 GM in SODIUM CHLORIDE 0.9% 100 ML IVPB STA (19:57)
[2023-11-21] MEDS: SODIUM ZIRCONIUM CYCLOSILICATE 10 GM PACKET PO ONE (20:07)
--- NOTE | 2023-11-21 20:58 | P.GSCN ---
History of Present Illness Consult date: 11/21/23 Reason for Consult: Diverticulitis History of present illness: 82-year-old female presents to the ER complaining of right-sided abdominal pain. Patient with history of diverticulitis involving the sigmoid colon. Underwent sigmoid resection 2007. Pain now is more right-sided mid abdomen. She has had some diarrhea with some blood in it at times. Symptoms began approximately 2 to 3 days ago. No fevers. No nausea or vomiting. Appetite somewhat diminished. Patient is afebrile. White blood cell count 16. Lactic acid normal. Creatin ine elevated. Patient had a colonoscopy by Dr. Lazo less than a year ago she states. Review of Systems The patient denies any acute changes in vision or hearing, no dysphagia or odynophagia, no chest pain or shortness of breath, no dysuria or hematuria, no headache, no runny nose, no melena, no unexplained weight loss Past Medical History Past Medical History: Atrial Fibrillation, Cancer, Deep Vein Thrombosis (DVT), Hearing Disorder / Deafness, Hyperlipidemia, Hypertension, Myocardial Infarction ([place]), Osteoarthritis (OA), Syncope, Thyroid Disorder Additional Past Medical History / Comment(s): hiatal hernia, hx basal skin cancer, hx diverticulitis, rt ear deaf . PIERSON left ear. hx of syncope. Flu A 5 weeks ago. Breast cancer >5 yrs ago. no chemo or radiation. blood clot to left ankle. growth to rt nostril. Last Myocardial Infarction Date:: 04/2012 History of Any Multi-Drug Resistant Organisms: None Reported Past Surgical History: AICD, Bowel Resection, Breast Surgery, Cardiac Ablation, Cholecystectomy, Heart Catheterization, Hysterectomy, Joint Replacement, Orthopedic Surgery, Pacemaker, Tonsillectomy Additional Past Surgical History / Comment(s): bilateral breast reduction 1995, arthroscopic rt knee, partial hysterectomy (bilateral ovaries retained), pacemaker battery replaced 2022, right breast lumpectomy, TRK 05/07/22 Past Anesthesia/Blood Transfusion Reactions: No Reported Reaction Additional Past Anesthesia/Blood Transfusion Reaction / Comm: No blood transfusions to date (pt had an autolygous transfusion when undergoing bilateral breast reduction). Type of Cardiac Device: Permanent Pacemaker, AICD Device Placement Date:: 2006 (info from pt's [employer]-[id number],model #[id number]) Past Psychological History: No Psychological Hx Reported Smoking Status: Former smoker Past Alcohol Use History: None Reported Past Drug Use History: None Reported - Past Family History Mother Family Medical History: Cancer Additional Family Medical History / Comment(s): Colon cancer dx at age 74, at age 84. Sister(s) Family Medical History: Cancer, CVA/TIA, Deep Vein Thrombosis (DVT) Additional Family Medical History / Comment(s): pt has 2 sisters: sister #1: at age 79 from stroke complications (also had a hx of blood clots). sister #2: had a cancerous tumor on aortic valve. Son(s) Family Medical History: Deep Vein Thrombosis (DVT) Brother(s) Family Medical History: CVA/TIA, Deep Vein Thrombosis (DVT) Additional Family Medical History / Comment(s): She has 1 brother with a history of stroke and blood clot. Father Family Medical History: Congestive Heart Failure (CHF) Medications and Allergies Home Medications Medication Instructions Recorded Confirmed Type Furosemide [Lasix] 40 mg PO BID@0800,1500 11/30/13 11/21/23 History Levothyroxine Sodium [Synthroid] 75 mcg PO DAILY 10/20/17 11/21/23 History Sacubitril/Valsartan [Entresto 24 1 tab PO BID 01/19/18 11/21/23 History mg-26 mg Tablet] allopurinoL [Zyloprim] 100 mg PO HS 01/27/20 11/21/23 History Atorvastatin [Lipitor] 20 mg PO HS 06/09/20 11/21/23 History Metoprolol Succinate [Toprol XL] 200 mg PO DAILY 06/09/20 11/21/23 History Rivaroxaban [Xarelto] 15 mg PO HS 06/14/21 11/21/23 History Cholecalciferol [Vitamin D3 (25 75 mcg PO DAILY 06/24/21 11/21/23 History Mcg = 1000 Iu)] Potassium Gluconate [Potassium 99 mg PO DAILY 06/24/21 11/21/23 History Gluconate ER] Ubidecarenone [Coenzyme Q10] 200 mg PO DAILY 12/27/22 11/21/23 History Magnesium 250 mg PO DAILY 11/21/23 11/21/23 History Spironolactone [Aldactone] 25 mg PO DAILY 11/21/23 11/21/23 History Allergies Allergy/AdvReac Type Severity Reaction Status Date / Time adhesive tape Allergy Rash/Hives Verified 11/21/23 16:19 ibuprofen [From Motrin] Allergy Swelling & Verified 11/21/23 16:19 itching on entire body levofloxacin [From Levaquin] Allergy Rash/Hives Verified 11/21/23 16:19 Surgical - Exam Vital Signs Temp Pulse Resp BP Pulse Ox 98.2 F 67 20 94/49 99 11/21/23 12:10 11/21/23 12:10 11/21/23 12:10 11/21/23 12:10 11/21/23 12:10 Physical exam: General: Well-developed, well-nourished HEENT: Normocephalic, sclerae nonicteric Abdomen: Mild distention, mild to moderate right-sided tenderness Extremities: No edema Neuro: Alert and oriented Results - Labs 11/21/23 13:20 11/21/23 13:20 Abnormal Lab Results - Last 24 Hours (Table) 11/21/23 11/21/23 11/21/23 Range/Units 13:20 13:20 13:20 WBC 16.1 H (3.8-10.6) k/uL Neutrophils # 13.5 H (1.3-7.7) k/uL Sodium 135 L (137-145) mmol/L Potassium 6.0 H (3.5-5.1) mmol/L Carbon Dioxide 21 L (22-30) mmol/L BUN 73 H (7-17) mg/dL Creatinine 2.21 H (0.52-1.04) mg/dL Glucose 117 H (74-99) mg/dL Total Bilirubin 1.8 H (0.2-1.3) mg/dL Lipase 376 H (23-300) U/L Urine Appearance Cloudy H (Clear) Urine Mucus Rare H (None) /hpf Diabetes panel 11/21/23 Range/Units 13:20 Sodium 135 L (137-145) mmol/L Potassium 6.0 H (3.5-5.1) mmol/L Chloride 103 (98-107) mmol/L Carbon Dioxide 21 L (22-30) mmol/L BUN 73 H (7-17) mg/dL Creatinine 2.21 H (0.52-1.04) mg/dL Glucose 117 H (74-99) mg/dL Calcium 9.8 (8.4-10.2) mg/dL AST 20 (14-36) U/L ALT 11 (4-34) U/L Alkaline Phosphatase 86 (38-126) U/L Total Protein 7.4 (6.3-8.2) g/dL Albumin 4.3 (3.5-5.0) g/dL Calcium panel 11/21/23 Range/Units 13:20 Calcium 9.8 (8.4-10.2) mg/dL Albumin 4.3 (3.5-5.0) g/dL Pituitary panel 11/21/23 Range/Units 13:20 Sodium 135 L (137-145) mmol/L Potassium 6.0 H (3.5-5.1) mmol/L Chloride 103 (98-107) mmol/L Carbon Dioxide 21 L (22-30) mmol/L BUN 73 H (7-17) mg/dL Creatinine 2.21 H (0.52-1.04) mg/dL Glucose 117 H (74-99) mg/dL Calcium 9.8 (8.4-10.2) mg/dL Adrenal panel 11/21/23 Range/Units 13:20 Sodium 135 L (137-145) mmol/L Potassium 6.0 H (3.5-5.1) mmol/L Chloride 103 (98-107) mmol/L Carbon Dioxide 21 L (22-30) mmol/L BUN 73 H (7-17) mg/dL Creatinine 2.21 H (0.52-1.04) mg/dL Glucose 117 H (74-99) mg/dL Calcium 9.8 (8.4-10.2) mg/dL Total Bilirubin 1.8 H (0.2-1.3) mg/dL AST 20 (14-36) U/L ALT 11 (4-34) U/L Alkaline Phosphatase 86 (38-126) U/L Total Protein 7.4 (6.3-8.2) g/dL Albumin 4.3 (3.5-5.0) g/dL Assessment and Plan (1) Diverticulitis Narrative/Plan: 82-year-old female with right-sided abdominal pain. CAT scan shows what appears to represent right-sided diverticulitis. Patient had recent colonoscopy that was reportedly normal per patient. Continue liquid diet. Continue broad- spectrum antibiotics. Will monitor closely. Current Visit: No Status: Acute Code(s): K57.92 - DVTRCLI OF INTEST, PART UNSP, W/O PERF OR ABSCESS W/O BLEED SNOMED Code(s): 117955052
[2023-11-21] MEDS: metroNIDAZOLE-NS PMX 500 MG in SALINE 1 100ML.BAG IVPB SCH (23:01)
[2023-11-22] MEDS: PIPERACILLIN-TAZOBACTAM 3.375 GM in SODIUM CHLORIDE 0.9% 100 ML IVPB SCH (01:08)
[2023-11-22] MEDS: CHOLECALCIFEROL 25 MCG (1000 IU) TABLET PO SCH (08:32)
[2023-11-22] MEDS: HYDROmorphone 1 MG/ML 1 ML SYRINGE IVP PRN (08:32)
[2023-11-22] MEDS: MAGNESIUM OXIDE 400 MG TAB PO SCH (08:32)
[2023-11-22] MEDS ORDERED: NON FORMULARY DRUG (Ubidecarenone [Coenzyme Q10] 200 MG Capsule) PO SCH (09:00)
[2023-11-22 09:17] LABS: HCT 32.5 % (37.2-46.3); HGB 10.7 g/dL (12.0-15.0); MCH 30.7 pg (27.0-32.0); MCHC 32.9 g/dL (32.0-37.0); MCV 93.1 FL (80.0-97.0); Mean Platelet Volume 11.7 FL (9.5-12.2); NRBC Per 100 WBC 0 X 10*3/uL (0.00-0.01); Platelet Count 177 X 10*3/uL (140-440); RBC 3.49 X 10*6/uL (4.10-5.20); RDW 13.8 % (11.5-14.5); WBC 16.58 X 10*3/uL (4.50-10.00)
[2023-11-22] MEDS: METOPROLOL SUCCINATE (ER) 100 MG TAB.ER.24H PO SCH (09:17)
[2023-11-22] MEDS: SACUBITRIL/VALSARTAN 24 MG-26 MG TABLET PO SCH (09:17)
[2023-11-22] MEDS: SODIUM CHLORIDE 0.9% 1,000 ML IV SCH ×2 (09:17→15:21)
[2023-11-22] MEDS: LEVOTHYROXINE 75 MCG TAB PO SCH (09:17)
[2023-11-22 09:34] LABS: ALT 10 U/L (4-34); African American GFR (CKD) 30 (>60 ml/min/1.73 sqM); Albumin 3.6 g/dL (3.5-5.0); Albumin/Globulin Ratio 1.2; Anion Gap 13 mmol/L; Blood Urea Nitrogen 68 mg/dL (7-17); Calcium 9.1 mg/dL (8.4-10.2); Carbon Dioxide 16 mmol/L (22-30); Chloride 105 mmol/L (98-107); Globulin 3.1 g/dL; Glucose 86 mg/dL (74-99); Non-African American GFR(CKD) 26 (>60 ml/min/1.73 sqM); Sodium 134 mmol/L (137-145); Total Bilirubin 2.8 mg/dL (0.2-1.3); Total Protein 6.7 g/dL (6.3-8.2)
[2023-11-22 09:37] LABS: AST 24 U/L (14-36); Alkaline Phosphatase 63 U/L (38-126)
[2023-11-22 09:49] LABS: Basophils # (A) 0.05 X 10*3/uL (0.00-0.10); Basophils % (A) 0.3 %; Eosinophils # (A) 0.01 X 10*3/uL (0.04-0.35); Eosinophils % (A) 0.1 %; Lymphocytes # (A) 1.77 X 10*3/uL (0.90-5.00); Lymphocytes % (A) 10.7 %; Monocytes # (A) 1.94 X 10*3/uL (0.20-1.00); Monocytes % (A) 11.7 %; Neutrophils # (A) 12.73 X 10*3/uL (1.80-7.70); Neutrophils % (A) 76.7 %; RBC Morphology Normal (Normal)
[2023-11-22 11:23] LABS: BUN/Creat Ratio 33.35 Ratio (12.00-20.00); Blood Urea Nitrogen 66.7 mg/dL (9.0-27.0); Carbon Dioxide 22.1 mmol/L (21.6-31.8); Chloride 101 mmol/L (96-109); Glucose 94 mg/dL (70-110); Sodium 137 mmol/L (135-145)
[2023-11-22 11:24] LABS: Calcium 9.3 mg/dL (8.7-10.3)
--- NOTE | 2023-11-22 13:29 | XR ---
EXAMINATION TYPE: XR chest 1V portable DATE OF EXAM: 11/22/2023 COMPARISON: 07/22/2023 INDICATION: CHF TECHNIQUE: Single frontal view of the chest is obtained. FINDINGS: The heart size is enlarged. Medical overlies the left chest. The pulmonary vasculature is normal. The lungs are clear. IMPRESSION: 1. No acute pulmonary process. 2. Cardiomegaly
[2023-11-22] MEDS: PANTOPRAZOLE 40 MG/10 ML VIAL IVP SCH (13:30)
[2023-11-22] MEDS: SODIUM CHLORIDE 0.9% 500 ML 500 ML IV ONE (15:21)
--- NOTE | 2023-11-22 16:57 | P.PN ---
Subjective patient seen and evaluated at bedside. Patient is to mild abdominal pain, denies nausea vomiting. Objective - Vital Signs Vital signs: Vital Signs Temp 97.4 F L 11/22/23 12:11 Pulse 57 L 11/22/23 12:11 Resp 18 11/22/23 12:11 BP 76/45 11/22/23 16:41 Pulse Ox 91 L 11/22/23 12:11 FiO2 Intake & Output 11/21/23 11/22/23 11/22/23 18:59 06:59 18:59 Intake Total 440 Balance 440 Weight 87.997 kg 87.997 kg Intake: Intake, IV Titration 200 Amount Piperacillin-Tazobactam 3 100 .375 gm In Sodium Chloride 0.9% 100 ml @ 25 mls/hr IVPB Q8H REYNA Rx#: [id number] metroNIDAZOLE-NS PMX 500 100 mg In Saline 1 100ml.bag @ 100 mls/hr IVPB Q8H REYNA Rx#:[id number] Oral 240 Other: Voiding Method Toilet # Voids 2 - Exam Gen. acute distress perivascularly bradycardia pulmonary nonlabored breathing Abdomen is soft, distended, tender to palpation right lower quadrant, no guarding or rebound tenderness, not peritoneal - Labs CBC & Chem 7: 11/22/23 06:04 11/22/23 08:58 Labs: Abnormal Lab Results - Last 24 Hours (Table) 11/22/23 11/22/23 11/22/23 Range/Units 06:04 06:04 08:58 WBC 16.58 H (4.50-10.00) X 10*3/uL RBC 3.49 L (4.10-5.20) X 10*6/uL Hgb 10.7 L (12.0-15.0) g/dL Hct 32.5 L (37.2-46.3) % Immature Gran # 0.08 H (0.00-0.04) X 10*3/uL Neutrophils # 12.73 H (1.80-7.70) X 10*3/uL Monocytes # 1.94 H (0.20-1.00) X 10*3/uL Eosinophils # 0.01 L (0.04-0.35) X 10*3/uL Sodium 134 L (137-145) mmol/L Carbon Dioxide 16 L (22-30) mmol/L Anion Gap 13.90 H (4.00-12.00) mmol/L BUN 66.7 H 68 H (9.0-27.0) mg/dL Creatinine 2.0 H 1.83 H (0.6-1.5) mg/dL Est GFR (CKD-EPI) 25 L (>=60) BUN/Creatinine Ratio 33.35 H (12.00-20.00) Ratio Total Bilirubin 2.8 H (0.2-1.3) mg/dL Assessment and Plan Assessment: [age]-year-old female with right-sided diverticulitis, uncomplicated Advance diet as tolerated Serial abdominal exams
[2023-11-22 17:14] LABS: Basophils % (A) 0 %; Eosinophils % (A) 0 %; HCT 35.2 % (34.0-46.0); HGB 10.9 gm/dL (11.4-16.0); Lymphocytes # (A) 1.3 k/uL (1.0-4.8); Lymphocytes % (A) 7 %; MCH 30.6 pg (25.0-35.0); MCHC 31.1 g/dL (31.0-37.0); MCV 98.5 fL (80.0-100.0); Mean Platelet Volume 9.1; Monocytes # (A) 1.5 k/uL (0-1.0); Monocytes % (A) 9 %; Neutrophils # (A) 13.8 k/uL (1.3-7.7); Neutrophils % (A) 82 %; Platelet Count 168 k/uL (150-450); RBC 3.57 m/uL (3.80-5.40); RDW 13.8 % (11.5-15.5); WBC 16.9 k/uL (3.8-10.6)
[2023-11-22] MEDS: ACETAMINOPHEN IV (For NPO) 1,000 MG in EMPTY BAG 1 BAG IVPB PRN (17:30)
[2023-11-22] MEDS: allopurinoL 100 MG TAB PO SCH (21:57)
[2023-11-22] MEDS: RIVAROXABAN 15 MG TAB PO SCH (21:57)
[2023-11-22] MEDS: ATORVASTATIN 20 MG TAB PO SCH (21:57)
--- NOTE | 2023-11-23 01:12 | HP ---
HISTORY AND PHYSICAL CHIEF COMPLAINT: Abdominal pain. HISTORY OF PRESENT ILLNESS: This is an 82-year-old woman with a past medical history of multiple medical problems including atrial fibrillation, DVT, being followed by Dr. Kunz in the outpatient setting, was complaining of lower abdominal pain. The patient also had a previous history of diverticulitis and felt similar symptoms. The CT scan of the abdomen and pelvis showed abdominal findings involving the colon, the right upper quadrant may be related to focal colitis. There is a contained perforation that was suspected. The patient was also seen by surgery and recommended broad-spectrum antibiotics and continued monitoring also. There is no history of fever, rigors, chills at this time. PAST MEDICAL HISTORY: History of atrial fibrillation, history of DVT, rest of the history and rest of the chart is also reviewed. HOME MEDICATIONS: Reviewed and include zyloprim, doses and rest of the medications were reviewed. ALLERGIES: Adhesive tapes. FAMILY HISTORY: History of colon cancer. SOCIAL HISTORY: Previous history of smoking. REVIEW OF SYSTEMS: Fourteen-point review of systems negative as mentioned earlier. PHYSICAL EXAMINATION: VITAL SIGNS: Pulse 57, blood pressure 80/47, respirations 18, temperature 97.4. HEENT: Conjunctivae normal. CARDIOVASCULAR: S1, S2. RESPIRATION: n ABDOMEN: Soft. Mild diffuse tenderness in the right side of the abdomen. No guarding. No rigidity. No masses palpable. LEGS: No edema, no swelling. NERVOUS SYSTEM: Nonfocal. LABORATORY DATA: WBC 16.58. Sodium 134. ASSESSMENT: 1. Acute diverticulitis on the right side with possibly focal contained perforation with possibly sepsis. 2. Acute renal failure with hyperkalemia, present on admission. 3. Elevated WBC. 4. Severe abdominal pain. 5. History of atrial fibrillation. 6. Diabetes, type 2. 7. Hypertension. 8. Hyperlipidemia. 9. History of bowel resection. 10.Multiple complex medical issues. I recommend to continue current medications and continue with broad-spectrum IV antibiotics, otherwise surgical evaluation. We will continue to monitor Xarelto, may be continued at this time. Otherwise, hold the blood pressure medications. Continue the pain management. Prognosis guarded. Further recommendations to follow. See orders for details. MMODL / IJN: [id number] / MTDD
[2023-11-23] MEDS ORDERED: METOPROLOL SUCCINATE (ER) 100 MG TAB.ER.24H PO SCH (09:00)
[2023-11-23 09:30] LABS: Basophils % (A) 0 %; Eosinophils # (A) 0.2 k/uL (0-0.7); Eosinophils % (A) 2 %; HCT 34.5 % (34.0-46.0); HGB 11.1 gm/dL (11.4-16.0); Lymphocytes # (A) 1.4 k/uL (1.0-4.8); Lymphocytes % (A) 10 %; MCH 31.2 pg (25.0-35.0); MCHC 32.3 g/dL (31.0-37.0); MCV 96.9 fL (80.0-100.0); Mean Platelet Volume 8.3; Monocytes % (A) 7 %; Neutrophils # (A) 11.1 k/uL (1.3-7.7); Neutrophils % (A) 80 %; RBC 3.56 m/uL (3.80-5.40); WBC 13.8 k/uL (3.8-10.6)
[2023-11-23 09:50] LABS: ALT 9 U/L (4-34); AST 18 U/L (14-36); African American GFR (CKD) 33 (>60 ml/min/1.73 sqM); Alkaline Phosphatase 56 U/L (38-126); Anion Gap 11 mmol/L; Blood Urea Nitrogen 52 mg/dL (7-17); Carbon Dioxide 12 mmol/L (22-30); Chloride 111 mmol/L (98-107); Glucose 100 mg/dL (74-99); Non-African American GFR(CKD) 29 (>60 ml/min/1.73 sqM); Potassium 4.2 mmol/L (3.5-5.1); Sodium 134 mmol/L (137-145); Total Bilirubin 1.1 mg/dL (0.2-1.3)
[2023-11-23 09:54] LABS: Platelet Count 187 k/uL (150-450)
--- NOTE | 2023-11-23 10:39 | P.PN ---
Subjective Progress Note Date: 11/23/23 Principal diagnosis: Diverticulitis Patient doing well today. Her pain is lessening. She had some low blood pressure issues but that has improved. She did have a bowel movement. No nausea or vomiting. Tolerating liquid diet. Objective - Vital Signs Vital signs: Vital Signs Temp 97.3 F L 11/23/23 09:30 Pulse 59 L 11/23/23 09:30 Resp 16 11/23/23 09:30 BP 106/67 11/23/23 09:30 Pulse Ox 98 11/23/23 09:30 FiO2 Intake & Output 11/22/23 11/23/23 11/23/23 18:59 06:59 18:59 Other: Voiding Method Bedside Commode Bedside Commode # Voids 2 # Bowel Movements 1 1 - Exam Abdomen: Soft, nondistended, mild right upper quadrant tenderness - Labs CBC & Chem 7: 11/23/23 09:02 11/23/23 09:02 Labs: Abnormal Lab Results - Last 24 Hours (Table) 11/22/23 11/22/23 11/23/23 Range/Units 06:04 16:18 09:02 WBC 16.9 H 13.8 H (3.8-10.6) k/uL RBC 3.57 L 3.56 L (3.80-5.40) m/uL Hgb 10.9 L 11.1 L (11.4-16.0) gm/dL Neutrophils # 13.8 H 11.1 H (1.3-7.7) k/uL Monocytes # 1.5 H (0-1.0) k/uL Sodium (137-145) mmol/L Chloride (98-107) mmol/L Carbon Dioxide (22-30) mmol/L Anion Gap 13.90 H (4.00-12.00) mmol/L BUN 66.7 H (9.0-27.0) mg/dL Creatinine 2.0 H (0.6-1.5) mg/dL Est GFR (CKD-EPI) 25 L (>=60) BUN/Creatinine Ratio 33.35 H (12.00-20.00) Ratio Glucose (74-99) mg/dL Total Protein (6.3-8.2) g/dL Albumin (3.5-5.0) g/dL 11/23/23 Range/Units 09:02 WBC (3.8-10.6) k/uL RBC (3.80-5.40) m/uL Hgb (11.4-16.0) gm/dL Neutrophils # (1.3-7.7) k/uL Monocytes # (0-1.0) k/uL Sodium 134 L (137-145) mmol/L Chloride 111 H (98-107) mmol/L Carbon Dioxide 12 L (22-30) mmol/L Anion Gap (4.00-12.00) mmol/L BUN 52 H (9.0-27.0) mg/dL Creatinine 1.65 H (0.6-1.5) mg/dL Est GFR (CKD-EPI) (>=60) BUN/Creatinine Ratio (12.00-20.00) Ratio Glucose 100 H (74-99) mg/dL Total Protein 6.0 L (6.3-8.2) g/dL Albumin 3.0 L (3.5-5.0) g/dL Microbiology - Last 24 Hours (Table) 11/21/23 18:35 Blood Culture - Preliminary Blood 11/21/23 18:50 Blood Culture - Preliminary Blood Assessment and Plan (1) Diverticulitis Narrative/Plan: Patient doing better at this time. Continue antibiotics. Continue full liquid diet. Oral analgesics. Current Visit: No Status: Acute Code(s): K57.92 - DVTRCLI OF INTEST, PART UNSP, W/O PERF OR ABSCESS W/O BLEED SNOMED Code(s): 695339503
--- NOTE | 2023-11-23 13:54 | XR ---
EXAMINATION TYPE: XR chest 1V portable DATE OF EXAM: 11/23/2023 COMPARISON: 11/22/2023 INDICATION: Short of breath TECHNIQUE: Single frontal view of the chest is obtained. FINDINGS: The heart size is enlarged. Pacemaker overlies the left chest The pulmonary vasculature is normal. No suspicious infiltrates. There is elevation of the right diaphragm. IMPRESSION: 1. No acute pulmonary process. 2. Cardiomegaly
--- NOTE | 2023-11-23 14:23 | P.CNPUL ---
History of Present Illness Consult date: 11/23/23 Chief complaint: Acute diverticulitis History of present illness: I was asked to evaluate this patient because of hypotension as the patient was hospitalized for an acute diverticulitis. The patient presented to us because of right-sided abdominal pain. The patient was found to have diverticulitis. The patient was seen by general surgery. The patient undergone previous sigmoid resection back in 2007. The patient was having some limited diarrhea blood and her symptoms started around 3 to 4 days prior to her hospital admission. Her last colonoscopy was done less than a year ago. The white cell count is at 13.8. Hemoglobin is 11.1 and platelet count of 187. BUN is 52 with a creatinine of 1.65 and a serum bicarb is at 12 and sodium levels at 134 and a potassium level is at 4.2. LFTs are normal. Stool for significant been negat mandy. Patient is currently covered with IV Zosyn. Patient is also on Flagyl. General surgery is on the case. As far as hemodynamics, patient's blood pressure is soft at 91/57. Nevertheless, she has not required any pressors. Oxygenation is stable with a pulse ox of 98% room air oxygen the patient remains on normal citrate of 75 cc an hour. No respiratory distress. Does not look toxic at all. Some incisional tenderness is present in the right upper quadrant. Review of Systems Constitutional: Reports fatigue, Reports poor appetite Eyes: denies as per HPI, denies blurred vision, denies bulging eye, denies decreased vision, denies diplopia, denies discharge, denies dry eye, denies irritation, denies itching, denies pain, denies photophobia, denies loss of peripheral vision, denies loss of vision, denies tunnel vision/blind spots Ears: deny: decreased hearing, ear discharge, earache, tinnitus Ears, nose, mouth and throat: Reports as per HPI Breasts: absent: as per HPI, change in shape, gynecomastia, masses, nipple discharge, pain, skin changes, swelling Cardiovascular: Reports dyspnea on exertion Respiratory: Reports dyspnea Gastrointestinal: Reports abdominal pain Genitourinary: Reports as per HPI Menstruation: Reports as per HPI Musculoskeletal: Reports as per HPI Musculoskeletal: absent: ankle pain, ankle stiffness, ankle swelling, as per HPI, elbow pain, elbow stiffness, elbow swelling, foot pain, foot stiffness, foot swelling, hand pain, hand stiffness, hand swelling, hip pain, hip stiffness, hip swelling, knee pain, knee stiffness, knee swelling, shoulder pain, shoulder stiffness, shoulder swelling, wrist pain, wrist stiffness, wrist swelling Integumentary: Reports as per HPI Neurological: Reports as per HPI Psychiatric: Reports as per HPI Endocrine: Reports as per HPI Hematologic/Lymphatic: Reports as per HPI Allergic/Immunologic: Reports as per HPI Past Medical History Past Medical History: Atrial Fibrillation, Cancer, Deep Vein Thrombosis (DVT), Hearing Disorder / Deafness, Hyperlipidemia, Hypertension, Myocardial Infarction ([place]), Osteoarthritis (OA), Syncope, Thyroid Disorder Additional Past Medical History / Comment(s): hiatal hernia, hx basal skin cancer, hx diverticulitis, rt ear deaf . PIERSON left ear. hx of syncope. Flu A 5 weeks ago. Breast cancer >5 yrs ago. no chemo or radiation. blood clot to left ankle. growth to rt nostril. Last Myocardial Infarction Date:: 04/2012 History of Any Multi-Drug Resistant Organisms: None Reported Past Surgical History: AICD, Bowel Resection, Breast Surgery, Cardiac Ablation, Cholecystectomy, Heart Catheterization, Hysterectomy, Joint Replacement, Orthopedic Surgery, Pacemaker, Tonsillectomy Additional Past Surgical History / Comment(s): bilateral breast reduction 1995, arthroscopic rt knee, partial hysterectomy (bilateral ovaries retained), pacemaker battery replaced 2022, right breast lumpectomy, TRK 05/07/22 Past Anesthesia/Blood Transfusion Reactions: No Reported Reaction Additional Past Anesthesia/Blood Transfusion Reaction / Comment(s): No blood transfusions to date (pt had an autolygous transfusion when undergoing bilateral breast reduction). Type of Cardiac Device: Permanent Pacemaker, AICD Device Placement Date:: 2006 (info from pt's med [employer] [id number],model#[id number]) Past Psychological History: No Psychological Hx Reported Smoking Status: Former smoker Past Alcohol Use History: None Reported Past Drug Use History: None Reported - Past Family History Mother Family Medical History: Cancer Additional Family Medical History / Comment(s): Colon cancer dx at age 74, at age 84. Sister(s) Family Medical History: Cancer, CVA/TIA, Deep Vein Thrombosis (DVT) Additional Family Medical History / Comment(s): pt has 2 sisters: sister #1: at age 79 from stroke complications (also had a hx of blood clots). sister #2: had a cancerous tumor on aortic valve. Son(s) Family Medical History: Deep Vein Thrombosis (DVT) Brother(s) Family Medical History: CVA/TIA, Deep Vein Thrombosis (DVT) Additional Family Medical History / Comment(s): She has 1 brother with a history of stroke and blood clot. Father Family Medical History: Congestive Heart Failure (CHF) Medications and Allergies Home Medications Medication Instructions Recorded Confirmed Type Furosemide [Lasix] 40 mg PO BID@0800,1500 11/30/13 11/21/23 History Levothyroxine Sodium [Synthroid] 75 mcg PO DAILY 10/20/17 11/21/23 History Sacubitril/Valsartan [Entresto 24 1 tab PO BID 01/19/18 11/21/23 History mg-26 mg Tablet] allopurinoL [Zyloprim] 100 mg PO HS 01/27/20 11/21/23 History Atorvastatin [Lipitor] 20 mg PO HS 06/09/20 11/21/23 History Metoprolol Succinate [Toprol XL] 200 mg PO DAILY 06/09/20 11/21/23 History Rivaroxaban [Xarelto] 15 mg PO HS 06/14/21 11/21/23 History Cholecalciferol [Vitamin D3 (25 75 mcg PO DAILY 06/24/21 11/21/23 History Mcg = 1000 Iu)] Potassium Gluconate [Potassium 99 mg PO DAILY 06/24/21 11/21/23 History Gluconate ER] Ubidecarenone [Coenzyme Q10] 200 mg PO DAILY 12/27/22 11/21/23 History Magnesium 250 mg PO DAILY 11/21/23 11/21/23 History Spironolactone [Aldactone] 25 mg PO DAILY 11/21/23 11/21/23 History Allergies Allergy/AdvReac Type Severity Reaction Status Date / Time adhesive tape Allergy Rash/Hives Verified 11/21/23 16:19 ibuprofen [From Motrin] Allergy Swelling & Verified 11/21/23 16:19 itching on entire body levofloxacin [From Levaquin] Allergy Rash/Hives Verified 11/21/23 16:19 Physical Exam Vitals: Vital Signs Temp Pulse Resp BP BP Pulse Ox 11/23/23 13:55 16 11/23/23 11:44 97.5 F L 60 17 91/57 98 11/23/23 09:30 97.3 F L 59 L 16 106/67 98 11/23/23 04:00 97.5 F L 64 16 92/60 98 11/23/23 02:20 16 11/22/23 21:45 97.6 F 62 18 86/50 91/53 98 11/22/23 18:22 88/46 96/64 11/22/23 17:25 98.1 F 60 16 105/66 96 11/22/23 16:58 90/57 11/22/23 16:41 76/45 11/22/23 16:37 64/38 11/22/23 15:30 74/44 Intake and Output 11/22/23 11/23/23 11/23/23 22:59 06:59 14:59 Other: Voiding Method Bedside Commode Bedside Commode Bedside Commode # Voids 2 1 # Bowel Movements 1 1 1 General appearance the patient is coming comfortable no acute distress and the patient is currently on room air oxygen. Head exam was generally normal. There was no scleral icterus or corneal arcus. Mucous membranes were moist. Neck was supple and without jugular venous distension, thyromegaly, or carotid bruits. Carotids were easily palpable bilaterally. There was no adenopathy. Lungs were clear to auscultation and percussion, and with normal diaphragmatic excursion. No wheezes or rales were noted. Cardiac exam revealed the PMI to be normally situated and sized. The rhythm was regular and no extrasystoles were noted during several minutes of auscultation. The first and second heart sounds were normal and physiologic splitting of the second heart sound was noted. There were no murmurs, rubs, clicks, or gallops. Abdomen is soft and the patient has no abdominal distention. Mild right upper quadrant tenderness could be elicited on today's examination. Examination of the extremities revealed easily palpable radial, femoral and pedal pulses. There was no cyanosis, clubbing or edema. Examination of the skin revealed no evidence of significant rashes, suspicious appearing nevi or other concerning lesions. Neurologically, the patient is awake and alert and the patient does not have any focal neurological deficit. Cranial nerves are essentially intact. Results - Laboratory Findings CBC and BMP: 11/23/23 09:02 11/23/23 09:02 Abnormal lab findings: Abnormal Labs 11/21/23 11/21/23 11/21/23 13:20 13:20 13:20 WBC 16.1 H RBC Hgb Hct Immature Gran # Neutrophils # 13.5 H Monocytes # Eosinophils # Sodium 135 L Potassium 6.0 H Chloride Carbon Dioxide 21 L Anion Gap BUN 73 H Creatinine 2.21 H Est GFR (CKD-EPI) BUN/Creatinine Ratio Glucose 117 H Total Bilirubin 1.8 H Total Protein Albumin Lipase 376 H Urine Appearance Cloudy H Urine Mucus Rare H 11/22/23 11/22/23 11/22/23 06:04 06:04 08:58 WBC 16.58 H RBC 3.49 L Hgb 10.7 L Hct 32.5 L Immature Gran # 0.08 H Neutrophils # 12.73 H Monocytes # 1.94 H Eosinophils # 0.01 L Sodium 134 L Potassium Chloride Carbon Dioxide 16 L Anion Gap 13.90 H BUN 66.7 H 68 H Creatinine 2.0 H 1.83 H Est GFR (CKD-EPI) 25 L BUN/Creatinine Ratio 33.35 H Glucose Total Bilirubin 2.8 H Total Protein Albumin Lipase Urine Appearance Urine Mucus 11/22/23 11/23/23 11/23/23 16:18 09:02 09:02 WBC 16.9 H 13.8 H RBC 3.57 L 3.56 L Hgb 10.9 L 11.1 L Hct Immature Gran # Neutrophils # 13.8 H 11.1 H Monocytes # 1.5 H Eosinophils # Sodium 134 L Potassium Chloride 111 H Carbon Dioxide 12 L Anion Gap BUN 52 H Creatinine 1.65 H Est GFR (CKD-EPI) BUN/Creatinine Ratio Glucose 100 H Total Bilirubin Total Protein 6.0 L Albumin 3.0 L Lipase Urine Appearance Urine Mucus - Diagnostic Findings Chest x-ray: image reviewed Assessment and Plan Plan: Acute abdominal pain secondary to diverticulitis, general surgery is on the case and the patient is currently on a combination of Zosyn and vancomycin. Hemodynamically stable. No significant hypotension at this point in time. Urine output is adequate. The patient does not look to be toxic or septic at this point in time. Chronic A-fib, maintained on anticoagulation on outpatient basis and the patient is currently on Xarelto 15 mg at bedtime.. The patient is post AV kristen ablation and the patient is permanently pacemaker dependent. Hypothyroidism History of biventricular pacemaker insertion History of nonischemic cardiomyopathy with class II CHF, the patient has a previous LV function of less than 30% with subsequent improvement in the LV function based on the most recent echocardiogram ejection fraction has been above 30% Nonocclusive coronary artery disease with 50% mid LAD, 40% RCA, stable and chronic findings Previous history of DVT Hypertension Hyperlipidemia History of breast cancer with a previous right breast lumpectomy Osteoarthritis Plan Continue IV fluids normal sed rate of 75 Continue Zosyn and Flagyl General surgery is on the case No need for ICU admission at this point Continue anticoagulation with Xarelto Note this 70 GI bleed Home outpatient medications were resumed The patient is currently off Entresto and Aldactone and Lasix and those medication will be kept on hold for now. Will continue to follow.
[2023-11-23] MEDS ORDERED: FUROSEMIDE 40 MG TAB PO SCH (15:00)
[2023-11-23] MEDS: traMADol 50 MG TAB PO PRN (15:11)
--- NOTE | 2023-11-23 15:59 | P.CRDCN ---
History of Present Illness Consult date: 11/23/23 Reason for Consult (text): Low blood pressure, CHF History of present illness: History of present illness: This is an 83-year-old female patient of Dr. Mireles with past medical history of hypertension, ventricular tachycardia, paroxysmal atrial fibrillation status post AV node ablation, nonischemic cardiomyopathy status post biventricular A ICD, congestive heart failure class II, hypothyroidism, and history of diverticulitis. We have been asked to evaluate the patient for low blood pressure and CHF. Patient presented to the emergency center due to lower abdominal pain similar to previous episode of diverticulitis. Pain has been going on for 2 days with bloody diarrhea. She states she feels much better today although pain is still present. She continues to have diarrhea with negative c diff. She has had 3-4 episodes of diverticulitis in the past. Patient has been seen by general surgery with plan for conservative management with IV antibiotics, IV fluids. She is currently on a full liquid diet patient presented with a blood pressure of 94/49. Yesterday afternoon blood pressure did drop to 64/38. She is status post IV fluid bolus of 500 mL and Toprol XL was discontinued. Telemetry: Ventricular paced rhythm Chest x-ray: No acute process. Cardiomegaly. CAT scan of the abdomen pelvis without contrast revealed abnormal findings involving the colon in the right upper quadrant may be related to focal colitis or diverticulitis with adjacent contained perforation. Possibility of underlying neoplasm cannot be excluded. Laboratory studies: WBC 16.9, hemoglobin 10.9. Sodium 134, potassium 5, BUN 68 creatinine 1.83 Home cardiac medications: Atorvastatin 20 mg at bedtime, Lasix 40 mg twice daily, levothyroxine 75 mg daily, magnesium 250 mg daily, Toprol XL 200 mg daily, potassium 99 mg daily, Xarelto 15 mg at bedtime, Entresto 24-26 mg 1 tablet twice daily, Aldactone 25 mg daily. Biventricular ICD, Medtronic device, battery change 06/26/2023 Echocardiogram performed in the office on 02/27/2022 revealed EF of 35%. Borderline left ventricular hypertrophy. Moderate to severe mitral regurgitation. Moderate tricuspid regurgitation. PASP 41 mmHg. Moderate pulmonic regurgitation. Cardiac catheterization performed in 2011 revealed EF of 30%, stenosis 50% mid LAD, 50% proximal CX, 40% RCA. Radiofrequency ablation for atrial fibrillation 03/14/2011 and ablation of slow atrial tachycardia on the roof of the LAD in 2011 Review Of Systems: At the time of my exam: CONSTITUTIONAL: Denies fever or chills. HEENT: Denies blurred vision, vision changes, or eye pain. Denies hemoptysis CARDIOVASCULAR: Denies chest pain. Denies orthopnea. Denies PND. Denies palpitations RESPIRATORY: Denies shortness of breath. GASTROINTESTINAL: Reports abdominal pain. Denies nausea or vomiting. HEMATOLOGIC: Denies bleeding disorders. + blood in stool GENITOURINARY: Denies any blood in urine. SKIN: Denies pruitis. Denies rash. Physical examination: Gen: This is an 83-year-old female in no acute distress VS: reviewed, blood pressure 92/60, heart rate 64, pulse ox 98% on room air HEENT: Head is atraumatic, normocephalic. Pupils equal, round. Sclerae is anicteric. NECK: Supple. No JVD. LUNGS: Clear to auscultation. No wheezes or rhonchi. No intercostal retractions. HEART: Regular rate and rhythm. No murmur. ABDOMEN: Soft No tenderness. EXTREMITIES: No pedal edema. No calf tenderness. NEUROLOGICAL: Patient is awake, alert and oriented x3. Assessment: Acute diverticulitis with perforation Hypotension secondary to SIRS/Sepsis Chronic systolic heart failure, class II Nonischemic cardiomyopathy status post biventricular AICD, EF 35% Paroxysmal atrial fibrillation status post ablation on Xarelto History of ventricular tachycardia Plan: Resume patient's home cardiac medications with following changes: Hold metoprolol, Entresto, Lasix due to hypotension Obtain 2-D echocardiogram and Doppler study to assess cardiac structure and function Continue treatment for diverticulitis Further recommendations to follow based upon clinical course Thank you kindly for this consultation. Nurse practitioner note has been reviewed, I agree with documented findings and plan of care. Patient was seen and examined. Past Medical History Past Medical History: Atrial Fibrillation, Cancer, Deep Vein Thrombosis (DVT), Hearing Disorder / Deafness, Hyperlipidemia, Hypertension, Myocardial Infarction ([place]), Osteoarthritis (OA), Syncope, Thyroid Disorder Additional Past Medical History / Comment(s): hiatal hernia, hx basal skin cancer, hx diverticulitis, rt ear deaf . PIERSON left ear. hx of syncope. Flu A 5 weeks ago. Breast cancer >5 yrs ago. no chemo or radiation. blood clot to left ankle. growth to rt nostril. Last Myocardial Infarction Date:: 04/2012 History of Any Multi-Drug Resistant Organisms: None Reported Past Surgical History: AICD, Bowel Resection, Breast Surgery, Cardiac Ablation, Cholecystectomy, Heart Catheterization, Hysterectomy, Joint Replacement, Orthopedic Surgery, Pacemaker, Tonsillectomy Additional Past Surgical History / Comment(s): bilateral breast reduction 1995, arthroscopic rt knee, partial hysterectomy (bilateral ovaries retained), pacemaker battery replaced 2022, right breast lumpectomy, TRK 05/07/22 Past Anesthesia/Blood Transfusion Reactions: No Reported Reaction Additional Past Anesthesia/Blood Transfusion Reaction / Comment(s): No blood transfusions to date (pt had an autolygous transfusion when undergoing bilateral breast reduction). Type of Cardiac Device: Permanent Pacemaker, AICD Device Placement Date:: 2006 (info from pt's [employer]- [id number],model#[id number]) Past Psychological History: No Psychological Hx Reported Smoking Status: Former smoker Past Alcohol Use History: None Reported Past Drug Use History: None Reported - Past Family History Mother Family Medical History: Cancer Additional Family Medical History / Comment(s): Colon cancer dx at age 74, at age 84. Sister(s) Family Medical History: Cancer, CVA/TIA, Deep Vein Thrombosis (DVT) Additional Family Medical History / Comment(s): pt has 2 sisters: sister #1: at age 79 from stroke complications (also had a hx of blood clots). sister #2: had a cancerous tumor on aortic valve. Son(s) Family Medical History: Deep Vein Thrombosis (DVT) Brother(s) Family Medical History: CVA/TIA, Deep Vein Thrombosis (DVT) Additional Family Medical History / Comment(s): She has 1 brother with a history of stroke and blood clot. Father Family Medical History: Congestive Heart Failure (CHF) Medications and Allergies Home Medications Medication Instructions Recorded Confirmed Type Furosemide [Lasix] 40 mg PO BID@0800,1500 /09/1011/21/23 History Levothyroxine Sodium [Synthroid] 75 mcg PO DAILY 10/20/17 11/21/23 History Sacubitril/Valsartan [Entresto 24 1 tab PO BID 01/19/18 11/21/23 History mg-26 mg Tablet] allopurinoL [Zyloprim] 100 mg PO HS 01/27/20 11/21/23 History Atorvastatin [Lipitor] 20 mg PO HS 06/09/20 11/21/23 History Metoprolol Succinate [Toprol XL] 200 mg PO DAILY 06/09/20 11/21/23 History Rivaroxaban [Xarelto] 15 mg PO HS 06/14/21 11/21/23 History Cholecalciferol [Vitamin D3 (25 75 mcg PO DAILY 06/24/21 11/21/23 History Mcg = 1000 Iu)] Potassium Gluconate [Potassium 99 mg PO DAILY 06/24/21 11/21/23 History Gluconate ER] Ubidecarenone [Coenzyme Q10] 200 mg PO DAILY 12/27/22 11/21/23 History Magnesium 250 mg PO DAILY 11/21/23 11/21/23 History Spironolactone [Aldactone] 25 mg PO DAILY 11/21/23 11/21/23 History Allergies Allergy/AdvReac Type Severity Reaction Status Date / Time adhesive tape Allergy Rash/Hives Verified 11/21/23 16:19 ibuprofen [From Motrin] Allergy Swelling & Verified 11/21/23 16:19 itching on entire body levofloxacin [From Levaquin] Allergy Rash/Hives Verified 11/21/23 16:19 Physical Exam Vitals: Vital Signs Temp Pulse Resp BP BP Pulse Ox 11/23/23 04:00 97.5 F L 64 16 92/60 98 11/23/23 02:20 16 11/22/23 21:45 97.6 F 62 18 86/50 91/53 98 11/22/23 18:22 88/46 96/64 11/22/23 17:25 98.1 F 60 16 105/66 96 11/22/23 16:58 90/57 11/22/23 16:41 76/45 11/22/23 16:37 64/38 11/22/23 15:30 74/44 11/22/23 14:10 82/51 11/22/23 12:11 97.4 F L 57 L 18 80/46 91 L Intake and Output 11/22/23 11/23/23 11/23/23 22:59 06:59 14:59 Other: Voiding Method Bedside Commode Bedside Commode # Voids 2 # Bowel Movements 1 1 Results 11/23/23 09:02 11/23/23 09:02 Cardiac Enzymes 11/22/23 Range/Units 08:58 AST 24 (14-36) U/L CBC 11/22/23 11/22/23 Range/Units 06:04 16:18 WBC 16.58 H 16.9 H (4.50-10.00) X 10*3/uL RBC 3.49 L 3.57 L (4.10-5.20) X 10*6/uL Hgb 10.7 L 10.9 L (12.0-15.0) g/dL Hct 32.5 L 35.2 (37.2-46.3) % Plt Count 177 168 (140-440) X 10*3/uL Comprehensive Metabolic Panel 11/22/23 11/22/23 Range/Units 06:04 08:58 Sodium 137 134 L (135-145) mmol/L Potassium 5.0 5.0 (3.5-5.5) mmol/L Chloride 101 105 (96-109) mmol/L Carbon Dioxide 22.1 16 L (21.6-31.8) mmol/L BUN 66.7 H 68 H (9.0-27.0) mg/dL Creatinine 2.0 H 1.83 H (0.6-1.5) mg/dL Glucose 94 86 (70-110) mg/dL Calcium 9.3 9.1 (8.7-10.3) mg/dL AST 24 (14-36) U/L ALT 10 (4-34) U/L Alkaline Phosphatase 63 (38-126) U/L Total Protein 6.7 (6.3-8.2) g/dL Albumin 3.6 (3.5-5.0) g/dL Current Medications Generic Name Dose Route Start Last Admin Trade Name Freq PRN Reason Stop Dose Admin Allopurinol 100 mg 11/22/23 21:00 11/22/23 21:57 Allopurinol 100 Mg Tab PO 100 mg HS REYNA Administration Atorvastatin Calcium 20 mg 11/22/23 21:00 11/22/23 21:57 Atorvastatin 20 Mg Tab PO 20 mg HS REYNA Administration Cholecalciferol 75 mcg 11/22/23 09:00 11/22/23 08:32 Cholecalciferol 25 Mcg (1000 Iu) Tablet PO 75 mcg DAILY REYNA Administration Hydromorphone HCl 1 mg 11/22/23 07:44 11/22/23 08:32 Hydromorphone 1 Mg/Ml 1 Ml Syringe IVP 1 mg Q3HR PRN Administration Pain Piperacillin Sod/Tazobactam 100 mls @ 25 mls/hr 11/22/23 02:00 11/23/23 02:21 Sod 3.375 gm/ Sodium Chloride IVPB 25 mls/hr Q8H REYNA Administration Protocol Metronidazole 500 mg/ IV 100 mls @ 100 mls/hr 11/22/23 00:00 11/23/23 01:19 Solution IVPB 100 mls/hr Q8H REYNA Administration Protocol Sodium Chloride 1,000 mls @ 75 mls/hr 11/22/23 07:45 11/22/23 21:05 Saline 0.9% IV 75 mls/hr .[id number] REYNA Administration Sodium Chloride 1,000 mls @ 125 mls/hr 11/22/23 14:30 11/23/23 08:11 Saline 0.9% IV Not Given .Q8H REYNA Acetaminophen 1,000 mg/ IV 100 mls @ 400 mls/hr 11/22/23 14:22 11/23/23 04:50 Solution IVPB 11/23/23 12:01 400 mls/hr Q6HR PRN Administration Mild to Moderate Pain (1 - 6) Levothyroxine Sodium 75 mcg 11/22/23 09:00 11/22/23 09:17 Levothyroxine 75 Mcg Tab PO 75 mcg DAILY@0630 REYNA Administration Magnesium Oxide 200 mg 11/22/23 09:00 11/22/23 08:32 Magnesium Oxide 400 Mg Tab PO 200 mg DAILY REYNA Administration Naloxone HCl 0.2 mg 11/21/23 18:19 Naloxone 0.4 Mg/Ml 1 Ml Vial IV Q2M PRN Opioid Reversal Pantoprazole Sodium 40 mg 11/22/23 13:15 11/22/23 22:00 Pantoprazole 40 Mg/10 Ml Vial IVP 40 mg BID REYNA Administration Rivaroxaban 15 mg 11/22/23 21:00 11/22/23 21:57 Rivaroxaban 15 Mg Tab PO 15 mg HS REYNA Administration Protocol Sacubitril/Valsartan 1 each 11/22/23 09:00 11/22/23 21:51 Sacubitril/Valsartan 24 Mg-26 Mg Tablet PO Not Given BID REYNA Intake and Output 11/22/23 11/23/23 11/23/23 22:59 06:59 14:59 Other: Voiding Method Bedside Commode Bedside Commode # Voids 2 # Bowel Movements 1 1 11/22/23 16:18 11/22/23 08:58
--- NOTE | 2023-11-24 03:14 | PN ---
PROGRESS NOTE DATE OF SERVICE: 11/23/2023 I am covering for Dr. Kunz. SUBJECTIVE: This 83-year-old woman was admitted with acute diverticulitis and abscess, had features of sepsis. The patient had hypotension and I transferred the patient yesterday to telemetry. Blood pressure is improving at this time. The patient is slightly short of breath at this time. A chest x-ray done today, which was reviewed personally by me showed pacemaker and possibly blunting of the left costophrenic angle also and cardiomegaly. PAST MEDICAL HISTORY: Reviewed. REVIEW OF SYSTEMS: Fourteen-point review of systems negative as mentioned earlier. CURRENT MEDICATIONS: Reviewed include Zosyn IV, rest of medication and doses are reviewed. PHYSICAL EXAMINATION: VITAL SIGNS: Pulse is 60, blood pressure 91/50, and respirations 17. HEENT: Conjunctivae normal. CARDIOVASCULAR: S1, S2. RESPIRATIONS: Diminished breath sounds at the bases. Few scattered rhonchi and crackles. ABDOMEN: Soft. NERVOUS SYSTEM: Nonfocal. LABORATORY DATA: Creatinine 1.65 and WBC 16.8. ASSESSMENT: 1. Acute diverticulitis on the right side with possibly focal contained perforation and abscess with sepsis. 2. Acute renal failure and hyperkalemia present on admission. 3. Elevated WBC. 4. Hypotension. 5. Severe abdominal pain. 6. History of atrial fibrillation. 7. Diabetes mellitus, type 2. 8. Hypertension. 9. Hyperlipidemia. 10.History of bowel resection. 11.Multiple complex medical issues. RECOMMENDATIONS: I recommend to continue current management and symptomatic treatment. Otherwise, at this time I would recommend continue the current medications. Continue broad-spectrum IV antibiotics closely. Follow with Surgery. Continue with the IV fluids. I would also recommend Cardiology followup also for history of CHF and other cardiac issues. Overall prognosis extremely guarded because of multiple complex medical issues. Further recommendations to follow. DVT prophylaxis. MMODL / IJN: [id number] /
[2023-11-24] MEDS: ACETAMINOPHEN TAB 325 MG TAB PO PRN (07:34)
--- NOTE | 2023-11-24 07:45 | XR ---
EXAMINATION TYPE: XR chest 1V portable DATE OF EXAM: 11/24/2023 6:34 AM CLINICAL INDICATION:Female, 83 years old with history of chf; COMPARISON: Chest radiographs from 11/23/2023 TECHNIQUE: XR chest 1V portable Frontal view of the chest. FINDINGS: Lungs/Pleura: There is no evidence of pleural effusion, focal consolidation, or pneumothorax. Pulmonary vascularity: Unremarkable. Heart/mediastinum: Cardiomediastinal silhouette is enlarged and stable. Four lead cardiac conduction device overlying the left hemithorax with lead tips projecting over the right ventricle, right atrium and coronary sinus. Musculoskeletal: No acute osseous pathology. IMPRESSION: No acute cardiopulmonary disease/process.
[2023-11-24] MEDS: FUROSEMIDE 10 MG/ML 4 ML VIAL IV STA (09:25)
--- NOTE | 2023-11-24 09:39 | P.PN ---
Subjective Progress Note Date: 11/24/23 Principal diagnosis: Diverticulitis Patient doing well today. Pain is down to 4 out of 10. Less diarrhea. Tolerating liquid diet. Some shortness of breath with ambulation. Objective - Vital Signs Vital signs: Vital Signs Temp 97.5 F L 11/24/23 08:55 Pulse 60 11/24/23 08:55 Resp 16 11/24/23 08:55 BP 106/66 11/24/23 08:55 Pulse Ox 94 L 11/24/23 08:55 FiO2 Intake & Output 11/23/23 11/24/23 11/24/23 18:59 06:59 18:59 Intake Total 480 Balance 480 Intake: Oral 480 Other: Voiding Method Bedside Commode Bedside Commode # Voids 1 1 # Bowel Movements 1 1 - Exam Abdomen: Soft, nondistended, mild right upper quadrant tenderness - Labs CBC & Chem 7: 11/23/23 09:02 11/23/23 09:02 Labs: Abnormal Lab Results - Last 24 Hours (Table) 11/23/23 11/23/23 Range/Units 09:02 09:02 Neutrophils # 11.1 H (1.3-7.7) k/uL Sodium 134 L (137-145) mmol/L Chloride 111 H (98-107) mmol/L Carbon Dioxide 12 L (22-30) mmol/L BUN 52 H (7-17) mg/dL Creatinine 1.65 H (0.52-1.04) mg/dL Glucose 100 H (74-99) mg/dL Total Protein 6.0 L (6.3-8.2) g/dL Albumin 3.0 L (3.5-5.0) g/dL Microbiology - Last 24 Hours (Table) 11/21/23 18:35 Blood Culture - Preliminary Blood 11/21/23 18:50 Blood Culture - Preliminary Blood Assessment and Plan (1) Diverticulitis Narrative/Plan: Patient doing well today. Continue full liquids. Advance to regular diet tomorrow. Possible discharge tomorrow if doing well. Lasix x 1 at this time for fluid overload. Current Visit: No Status: Acute Code(s): K57.92 - DVTRCLI OF INTEST, PART UNSP, W/O PERF OR ABSCESS W/O BLEED SNOMED Code(s): 087899922
[2023-11-24 09:48] LABS: Basophils % (A) 0 %; Eosinophils # (A) 0.1 k/uL (0-0.7); Eosinophils % (A) 1 %; Lymphocytes # (A) 0.8 k/uL (1.0-4.8); Lymphocytes % (A) 7 %; MCH 31.9 pg (25.0-35.0); MCHC 32.7 g/dL (31.0-37.0); MCV 97.5 fL (80.0-100.0); Mean Platelet Volume 9.3; Monocytes # (A) 0.9 k/uL (0-1.0); Monocytes % (A) 8 %; Neutrophils # (A) 9.4 k/uL (1.3-7.7); Neutrophils % (A) 83 %; Platelet Count 167 k/uL (150-450); RBC 2.98 m/uL (3.80-5.40); RDW 14.1 % (11.5-15.5); WBC 11.3 k/uL (3.8-10.6)
[2023-11-24 10:04] LABS: ALT 9 U/L (4-34); AST 14 U/L (14-36); African American GFR (CKD) 51 (>60 ml/min/1.73 sqM); Albumin 2.9 g/dL (3.5-5.0); Alkaline Phosphatase 56 U/L (38-126); Anion Gap 7 mmol/L; Blood Urea Nitrogen 27 mg/dL (7-17); Carbon Dioxide 18 mmol/L (22-30); Chloride 112 mmol/L (98-107); Glucose 124 mg/dL (74-99); Non-African American GFR(CKD) 44 (>60 ml/min/1.73 sqM); Potassium 4.8 mmol/L (3.5-5.1); Sodium 137 mmol/L (137-145); Total Bilirubin 0.7 mg/dL (0.2-1.3); Total Protein 5.8 g/dL (6.3-8.2)
[2023-11-24 10:09] LABS: HGB 9.5 gm/dL (11.4-16.0)
[2023-11-24] MEDS: METOPROLOL SUCCINATE (ER) 25 MG TAB.ER.24H PO SCH (11:08)
--- NOTE | 2023-11-24 11:26 | P.CONS ---
History of Present Illness - Reason for Consult Consult date: 11/23/23 - History of Present Illness Patient is a 83-year-old female with a past medical history significant for atrial fibrillation DVT hyperlipidemia hypertension DC and diverticulitis presenting to the hospital 2 days ago for evaluation of lower quadrant abdominal pain patient mention she did have a previous history of diverticulitis and the pain appears similar to 8 pain has been going on for about 2 days describing it to be sharp moderate intensity without any radiation and did have some bloody diarrhea patient denies high-grade fever or any chills and no fever have been recorded during this hospital admission patient was not tachycardic mildly hypotensive but no need for pressor support and not hypoxic patient did have elevated white count BUN and creatinine has been mildly elevated liver enzymes are normal blood pressure pills are currently pending patient did have abdominal pelvis CT concerning for focal colitis or diverticulitis and contained perforation patient was started on Zosyn infectious disease was consulted for further management of antibiotic therapy Past Medical History Past Medical History: Atrial Fibrillation, Cancer, Deep Vein Thrombosis (DVT), Hearing Disorder / Deafness, Hyperlipidemia, Hypertension, Myocardial Infarction (DC), Osteoarthritis (OA), Syncope, Thyroid Disorder Additional Past Medical History / Comment(s): hiatal hernia, hx basal skin cancer, hx diverticulitis, rt ear deaf . PIERSON left ear. hx of syncope. Flu A 5 weeks ago. Breast cancer >5 yrs ago. no chemo or radiation. blood clot to left ankle. growth to rt nostril. Last Myocardial Infarction Date:: 04/2012 History of Any Multi-Drug Resistant Organisms: None Reported Past Surgical History: AICD, Bowel Resection, Breast Surgery, Cardiac Ablation, Cholecystectomy, Heart Catheterization, Hysterectomy, Joint Replacement, Orthopedic Surgery, Pacemaker, Tonsillectomy Additional Past Surgical History / Comment(s): bilateral breast reduction 1995, arthroscopic rt knee, partial hysterectomy (bilateral ovaries retained), pacemaker battery replaced 2022, right breast lumpectomy, TRK 05/07/22 Past Anesthesia/Blood Transfusion Reactions: No Reported Reaction Additional Past Anesthesia/Blood Transfusion Reaction / Comm: No blood transfusions to date (pt had an autolygous transfusion when undergoing bilateral breast reduction). Type of Cardiac Device: Permanent Pacemaker, AICD Device Placement Date:: 2006 (info from pt's [employer]-B [id number],model#[id number]) Past Psychological History: No Psychological Hx Reported Smoking Status: Former smoker Past Alcohol Use History: None Reported Past Drug Use History: None Reported - Past Family History Mother Family Medical History: Cancer Additional Family Medical History / Comment(s): Colon cancer dx at age 74, at age 84. Sister(s) Family Medical History: Cancer, CVA/TIA, Deep Vein Thrombosis (DVT) Additional Family Medical History / Comment(s): pt has 2 sisters: sister #1: at age 79 from stroke complications (also had a hx of blood clots). sister #2: had a cancerous tumor on aortic valve. Son(s) Family Medical History: Deep Vein Thrombosis (DVT) Brother(s) Family Medical History: CVA/TIA, Deep Vein Thrombosis (DVT) Additional Family Medical History / Comment(s): She has 1 brother with a history of stroke and blood clot. Father Family Medical History: Congestive Heart Failure (CHF) Medications and Allergies Home Medications Medication Instructions Recorded Confirmed Type Furosemide [Lasix] 40 mg PO BID@0800,1500 11/30/13 11/21/23 History Levothyroxine Sodium [Synthroid] 75 mcg PO DAILY 10/20/17 11/21/23 History Sacubitril/Valsartan [Entresto 24 1 tab PO BID 01/19/18 11/21/23 History mg-26 mg Tablet] allopurinoL [Zyloprim] 100 mg PO HS 01/27/20 11/21/23 History Atorvastatin [Lipitor] 20 mg PO HS 06/09/20 11/21/23 History Metoprolol Succinate [Toprol XL] 200 mg PO DAILY 06/09/20 11/21/23 History Rivaroxaban [Xarelto] 15 mg PO HS 06/14/21 11/21/23 History Cholecalciferol [Vitamin D3 (25 75 mcg PO DAILY 06/24/21 11/21/23 History Mcg = 1000 Iu)] Potassium Gluconate [Potassium 99 mg PO DAILY 06/24/21 11/21/23 History Gluconate ER] Ubidecarenone [Coenzyme Q10] 200 mg PO DAILY 12/27/22 11/21/23 History Magnesium 250 mg PO DAILY 11/21/23 11/21/23 History Spironolactone [Aldactone] 25 mg PO DAILY 11/21/23 11/21/23 History Allergies Allergy/AdvReac Type Severity Reaction Status Date / Time adhesive tape Allergy Rash/Hives Verified 11/21/23 16:19 ibuprofen [From Motrin] Allergy Swelling & Verified 11/21/23 16:19 itching on entire body levofloxacin [From Levaquin] Allergy Rash/Hives Verified 11/21/23 16:19 Physical Exam Vitals: Vital Signs Temp Pulse Resp BP BP Pulse Ox 11/23/23 04:00 97.5 F L 64 16 92/60 98 11/23/23 02:20 16 11/22/23 21:45 97.6 F 62 18 86/50 91/53 98 11/22/23 18:22 88/46 96/64 11/22/23 17:25 98.1 F 60 16 105/66 96 11/22/23 16:58 90/57 11/22/23 16:41 76/45 11/22/23 16:37 64/38 11/22/23 15:30 74/44 11/22/23 14:10 82/51 11/22/23 12:11 97.4 F L 57 L 18 80/46 91 L Intake and Output 11/22/23 11/23/23 11/23/23 22:59 06:59 14:59 Other: Voiding Method Bedside Commode Bedside Commode # Voids 2 # Bowel Movements 1 1 Results CBC & Chem 7: 11/24/23 09:06 11/24/23 09:06 Labs: Abnormal Lab Results - Last 24 Hours (Table) 11/22/23 11/22/23 11/22/23 Range/Units 06:04 06:04 08:58 WBC 16.58 H (4.50-10.00) X 10*3/uL RBC 3.49 L (4.10-5.20) X 10*6/uL Hgb 10.7 L (12.0-15.0) g/dL Hct 32.5 L (37.2-46.3) % Immature Gran # 0.08 H (0.00-0.04) X 10*3/uL Neutrophils # 12.73 H (1.80-7.70) X 10*3/uL Monocytes # 1.94 H (0.20-1.00) X 10*3/uL Eosinophils # 0.01 L (0.04-0.35) X 10*3/uL Sodium 134 L (137-145) mmol/L Carbon Dioxide 16 L (22-30) mmol/L Anion Gap 13.90 H (4.00-12.00) mmol/L BUN 66.7 H 68 H (9.0-27.0) mg/dL Creatinine 2.0 H 1.83 H (0.6-1.5) mg/dL Est GFR (CKD-EPI) 25 L (>=60) BUN/Creatinine Ratio 33.35 H (12.00-20.00) Ratio Total Bilirubin 2.8 H (0.2-1.3) mg/dL 11/22/23 Range/Units 16:18 WBC 16.9 H (4.50-10.00) X 10*3/uL RBC 3.57 L (4.10-5.20) X 10*6/uL Hgb 10.9 L (12.0-15.0) g/dL Hct (37.2-46.3) % Immature Gran # (0.00-0.04) X 10*3/uL Neutrophils # 13.8 H (1.80-7.70) X 10*3/uL Monocytes # 1.5 H (0.20-1.00) X 10*3/uL Eosinophils # (0.04-0.35) X 10*3/uL Sodium (137-145) mmol/L Carbon Dioxide (22-30) mmol/L Anion Gap (4.00-12.00) mmol/L BUN (9.0-27.0) mg/dL Creatinine (0.6-1.5) mg/dL Est GFR (CKD-EPI) (>=60) BUN/Creatinine Ratio (12.00-20.00) Ratio Total Bilirubin (0.2-1.3) mg/dL Microbiology - Last 24 Hours (Table) 11/21/23 18:35 Blood Culture - Preliminary Blood 11/21/23 18:50 Blood Culture - Preliminary Blood Assessment and Plan Plan: 1patient with leukocytosis in this patient presented hospital abdominal pain and also noticed to have abnormality on the CT suggestive of colitis/diverticulitis with contained perforation likely etiology of her leukocytosis and will need to cover for the enteric gram-negative both aerobes and anaerobes. 2patient with the Levaquin allergy. 3continue with Zosyn while waiting for the workup to be completed along with bowel rest. We will follow on clinical condition and cultures to further adjust medication if needed Thank you for this consultation we will follow the patient along with you Dictation was produced using [employer] dictation software. please excuse any grammatical, word or spelling errors. Time with Patient: Greater than 30
--- NOTE | 2023-11-24 13:00 | P.PN ---
Subjective Progress Note Date: 11/24/23 Reason for Consult (text): Low blood pressure, CHF History of present illness: History of present illness: This is an 83-year-old female patient of Dr. Mireles with past medical history of hypertension, ventricular tachycardia, paroxysmal atrial fibrillation status post AV node ablation, nonischemic cardiomyopathy status post biventricular AICD, congestive heart failure class II, hypothyroidism, and history of diverticulitis. We have been asked to evaluate the patient for low blood pressure and CHF. Patient presented to the emergency center due to lower abdominal pain similar to previous episode of diverticulitis. Pain has been going on for 2 days with bloody diarrhea. She states she feels much better today although pain is still present. She continues to have diarrhea with negative c diff. She has had 3-4 episodes of diverticulitis in the past. Patient has been seen by general surgery with plan for conservative management with IV ant ibiotics, IV fluids. She is currently on a full liquid diet patient presented with a blood pressure of 94/49. Yesterday afternoon blood pressure did drop to 64/38. She is status post IV fluid bolus of 500 mL and Toprol XL was discontinued. Telemetry: Ventricular paced rhythm Chest x-ray: No acute process. Cardiomegaly. CAT scan of the abdomen pelvis without contrast revealed abnormal findings involving the colon in the right upper quadrant may be related to focal colitis or diverticulitis with adjacent contained perforation. Possibility of underlying neoplasm cannot be excluded. Laboratory studies: WBC 16.9, hemoglobin 10.9. Sodium 134, potassium 5, BUN 68 creatinine 1.83 Home cardiac medications: Atorvastatin 20 mg at bedtime, Lasix 40 mg twice daily, levothyroxine 75 mg daily, magnesium 250 mg daily, Toprol XL 200 mg daily, potassium 99 mg daily, Xarelto 15 mg at bedtime, Entresto 24-26 mg 1 tablet twice daily, Aldactone 25 mg daily. Biventricular ICD, [employer] device, battery change 06/26/2023 Echocardiogram performed in the office on 02/27/2022 revealed EF of 35%. Borderl ine left ventricular hypertrophy. Moderate to severe mitral regurgitation. Moderate tricuspid regurgitation. PASP 41 mmHg. Moderate pulmonic regurgitation. Cardiac catheterization performed in 2011 revealed EF of 30%, stenosis 50% mid LAD, 50% proximal CX, 40% RCA. Radiofrequency ablation for atrial fibrillation 03/14/2011 and ablation of slow atrial tachycardia on the roof of the LAD in 11/23 Patient has been maintained on IV fluids and clear liquid diet. This morning she developed shortness of breath with minimal activity and 1 dose of IV Lasix was ordered by general surgery and IV fluids have been stopped. She states she otherwise is feeling better each day. She has a little bit of a cough. Pain is currently a #4/10. Blood pressure 106/66, heart rate 60, pulse ox 94% on room air. Repeat blood work reveals hemoglobin 9.5. BUN 27 creatinine 1.16. Potassium 4.8. C. difficile toxin was negative. Physical examination: Gen: This is an 83-year-old female in no acute distress VS: reviewed, blood pressure 92/60, heart rate 64, pulse ox 98% on room air HEENT: Head is atraumatic, normocephalic. Pupils equal, round. Sclerae is anicteric. NECK: Supple. No JVD. LUNGS: Clear to auscultation. No wheezes or rhonchi. No intercostal retractions. HEART: Regular rate and rhythm. No murmur. ABDOMEN: Soft No tenderness. EXTREMITIES: No pedal edema. No calf tenderness. NEUROLOGICAL: Patient is awake, alert and oriented x3. Assessment: Acute diverticulitis with perforation Hypotension secondary to SIRS/Sepsis Chronic systolic heart failure, class II Acute fluid overload secondary to IV fluids and patient is off diuretics, status post 1 dose of IV Lasix Nonischemic cardiomyopathy status post biventricular AICD, EF 35% Paroxysmal atrial fibrillation status post ablation on Xarelto History of ventricular tachycardia Plan: Continue patient's home cardiac medications: Atorvastatin, with following changes: Continue to hold Entresto, and Aldactone Resume patient's home medication, Toprol XL at a lower dose of 25 mg daily starting today Resume patient's home medication, oral Lasix 40 mg twice daily starting tomorrow Obtain 2-D echocardiogram and Doppler study to assess cardiac structure and function Continue treatment for diverticulitis Further recommendations to follow based upon clinical course Nurse practitioner note has been reviewed, I agree with documented findings and plan of care. Patient was seen and examined. Objective - Vital Signs Vital signs: Vital Signs Temp 97.5 F L 11/24/23 08:55 Pulse 60 11/24/23 08:55 Resp 16 11/24/23 08:55 BP 106/66 11/24/23 08:55 Pulse Ox 94 L 11/24/23 08:55 FiO2 Intake & Output 11/23/23 11/24/23 11/24/23 18:59 06:59 18:59 Intake Total 480 Balance 480 Intake: Oral 480 Other: Voiding Method Bedside Commode Bedside Commode Bedside Commode # Voids 1 1 1 # Bowel Movements 1 1 1 - Labs CBC & Chem 7: 11/24/23 09:06 11/24/23 09:06 Labs: Abnormal Lab Results - Last 24 Hours (Table) 11/24/23 11/24/23 Range/Units 09:06 09:06 WBC 11.3 H (3.8-10.6) k/uL RBC 2.98 L (3.80-5.40) m/uL Hgb 9.5 L D (11.4-16.0) gm/dL Hct 29.0 L (34.0-46.0) % Neutrophils # 9.4 H (1.3-7.7) k/uL Lymphocytes # 0.8 L (1.0-4.8) k/uL Chloride 112 H (98-107) mmol/L Carbon Dioxide 18 L (22-30) mmol/L BUN 27 H (7-17) mg/dL Creatinine 1.16 H (0.52-1.04) mg/dL Glucose 124 H (74-99) mg/dL Total Protein 5.8 L (6.3-8.2) g/dL Albumin 2.9 L (3.5-5.0) g/dL Microbiology - Last 24 Hours (Table) 11/21/23 18:35 Blood Culture - Preliminary Blood 11/21/23 18:50 Blood Culture - Preliminary Blood
--- NOTE | 2023-11-24 14:35 | P.PN ---
Subjective Progress Note Date: 11/24/23 I was asked to evaluate this patient because of hypotension as the patient was hospitalized for an acute diverticulitis. The patient presented to us because of right-sided abdominal pain. The patient was found to have diverticulitis. The patient was seen by general surgery. The patient undergone previous sigmoid resection back in 2007. The patient was having some limited diarrhea blood and her symptoms started around 3 to 4 days prior to her hospital admission. Her last colonoscopy was done less than a year ago. The white cell count is at 13.8. Hemoglobin is 11.1 and platelet count of 187. BUN is 52 with a creatinine of 1.65 and a serum bicarb is at 12 and sodium levels at 134 and a potassium level is at 4.2. LFTs are normal. Stool for significant been negative. Patient is currently covered with IV Zosyn. Patient is also on Flagyl. General surgery is on the case. As far as hemodynamics, patient's blood pressure is soft at 91/57. Nevertheless, she has not required any pressor s. Oxygenation is stable with a pulse ox of 98% room air oxygen the patient remains on normal citrate of 75 cc an hour. No respiratory distress. Does not look toxic at all. Some incisional tenderness is present in the right upper quadrant. On 11/24/2023, the patient is stable. No significant abdominal pain. Remains on Zosyn and Flagyl. General surgery is on the case. The patient has some limited pain in the right lower quadrant. Pain is around 3 out of 10 in severity. No diarrhea. Tolerating full liquid diet at this point in time. No significant shortness of breath. Diuretics were also given and the patient is producing adequate amount of urine output. Remains in atrial fibrillation. Remains on anticoagulation with Xarelto. No other new complaints noted. Objective - Vital Signs Vital signs: Vital Signs Temp 97.7 F 11/24/23 11:16 Pulse 60 11/24/23 11:16 Resp 16 11/24/23 11:16 BP 95/61 11/24/23 11:16 Pulse Ox 97 11/24/23 11:16 FiO2 Intake & Output 11/23/23 11/24/23 11/24/23 18:59 06:59 18:59 Intake Total 480 Balance 480 Intake: Oral 480 Other: Voiding Method Bedside Commode Bedside Commode Bedside Commode # Voids 1 1 1 # Bowel Movements 1 1 1 - Exam General appearance the patient is coming comfortable no acute distress and the patient is currently on room air oxygen. Head exam was generally normal. There was no scleral icterus or corneal arcus. Mucous membranes were moist. Neck was supple and without jugular venous distension, thyromegaly, or carotid bruits. Carotids were easily palpable bilaterally. There was no adenopathy. Lungs were clear to auscultation and percussion, and with normal diaphragmatic excursion. No wheezes or rales were noted. Cardiac exam revealed the PMI to be normally situated and sized. The rhythm was regular and no extrasystoles were noted during several minutes of auscultation. The first and second heart sounds were normal and physiologic splitting of the second heart sound was noted. There were no murmurs, rubs, clicks, or gallops. Abdomen is soft and the patient has no abdominal distention. Mild right upper quadrant tenderness could be elicited on today's examination. Examination of the extremities revealed easily palpable radial, femoral and pedal pulses. There was no cyanosis, clubbing or edema. Examination of the skin revealed no evidence of significant rashes, suspicious appearing nevi or other concerning lesions. Neurologically, the patient is awake and alert and the patient does not have any focal neurological deficit. Cranial nerves are essentially intact. - Labs CBC & Chem 7: 11/24/23 09:06 11/24/23 09:06 Labs: Abnormal Lab Results - Last 24 Hours (Table) 11/24/23 11/24/23 Range/Units 09:06 09:06 WBC 11.3 H (3.8-10.6) k/uL RBC 2.98 L (3.80-5.40) m/uL Hgb 9.5 L D (11.4-16.0) gm/dL Hct 29.0 L (34.0-46.0) % Neutrophils # 9.4 H (1.3-7.7) k/uL Lymphocytes # 0.8 L (1.0-4.8) k/uL Chloride 112 H (98-107) mmol/L Carbon Dioxide 18 L (22-30) mmol/L BUN 27 H (7-17) mg/dL Creatinine 1.16 H (0.52-1.04) mg/dL Glucose 124 H (74-99) mg/dL Total Protein 5.8 L (6.3-8.2) g/dL Albumin 2.9 L (3.5-5.0) g/dL Microbiology - Last 24 Hours (Table) 11/21/23 18:35 Blood Culture - Preliminary Blood 11/21/23 18:50 Blood Culture - Preliminary Blood Assessment and Plan Plan: Acute abdominal pain secondary to diverticulitis, general surgery is on the case and the patient is currently on a combination of Zosyn and vancomycin. Hemodynamically stable. No significant hypotension at this point in time. Urine output is adequate. The patient does not look to be toxic or septic at this point in time. Patient's pain significantly. Chronic A-fib, maintained on anticoagulation on outpatient basis and the patient is currently on Xarelto 15 mg at bedtime.. The patient is post AV kristen ablation and the patient is permanently pacemaker dependent. Hypothyroidism History of biventricular pacemaker insertion History of nonischemic cardiomyopathy with class II CHF, the patient has a previous LV function of less than 30% with subsequent improvement in the LV function based on the most recent echocardiogram ejection fraction has been above 30% Nonocclusive coronary artery disease with 50% mid LAD, 40% RCA, stable and chronic findings Previous history of DVT Hypertension Hyperlipidemia History of breast cancer with a previous right breast lumpectomy Osteoarthritis Plan Diet is full liquid at this point in time and this will be gradually advanced Continue Zosyn and Flagyl General surgery is on the case Continue anticoagulation with Xarelto Note this 70 GI bleed Home outpatient medications were resumed The patient is currently off Entresto and Aldactone and Lasix and those medicat ion will be kept on hold for now. No need for ICU admission at this point
--- NOTE | 2023-11-24 17:54 | P.PN ---
Subjective Progress Note Date: 11/24/23 Principal diagnosis: Reason for follow-up is acute diverticulitis and leukocytosis Patient is a 83-year-old female with a past medical history significant for atrial fibrillation DVT hyperlipidemia hypertension CO and diverticulitis presenting to the hospital for abdominal pain has been diagnosed with acute diverticulitis with possible contained perforation. On today's evaluation that is 11/24/2023, Patient is afebrile patient is currently on room air and denies having any shortness of breath, the patient denies any chest pain or cough, the patient denies any nausea vomiting abdominal pain has decreased in intensity and diarrhea historian. Patient went to close noted 11.3, creatinine is 1.16 stool for C. difficile was negative Objective - Vital Signs Vital signs: Vital Signs Temp 97.7 F 11/24/23 16:00 Pulse 60 11/24/23 16:00 Resp 16 11/24/23 16:00 BP 93/48 11/24/23 16:00 Pulse Ox 97 11/24/23 16:00 FiO2 Intake & Output 11/23/23 11/24/23 11/24/23 18:59 06:59 18:59 Intake Total 480 Balance 480 Intake: Oral 480 Other: Voiding Method Bedside Commode Bedside Commode Bedside Commode # Voids 1 1 1 # Bowel Movements 1 1 1 - Exam GENERAL DESCRIPTION: An elderly female lying in bed in no distress RESPIRATORY SYSTEM: Unlabored breathing , decreased breath sounds at bases HEART: S1 S2 regular rate and rhythm , ABDOMEN: Soft , no tenderness EXTREMITIES: No edema feet - Labs CBC & Chem 7: 11/24/23 09:06 11/24/23 09:06 Labs: Abnormal Lab Results - Last 24 Hours (Table) 11/24/23 11/24/23 Range/Units 09:06 09:06 WBC 11.3 H (3.8-10.6) k/uL RBC 2.98 L (3.80-5.40) m/uL Hgb 9.5 L D (11.4-16.0) gm/dL Hct 29.0 L (34.0-46.0) % Neutrophils # 9.4 H (1.3-7.7) k/uL Lymphocytes # 0.8 L (1.0-4.8) k/uL Chloride 112 H (98-107) mmol/L Carbon Dioxide 18 L (22-30) mmol/L BUN 27 H (7-17) mg/dL Creatinine 1.16 H (0.52-1.04) mg/dL Glucose 124 H (74-99) mg/dL Total Protein 5.8 L (6.3-8.2) g/dL Albumin 2.9 L (3.5-5.0) g/dL Microbiology - Last 24 Hours (Table) 11/21/23 18:35 Blood Culture - Preliminary Blood 11/21/23 18:50 Blood Culture - Preliminary Blood Assessment and Plan (1) Acute diverticulitis Current Visit: Yes Status: Acute Code(s): K57.92 - DVTRCLI OF INTEST, PART UNSP, W/O PERF OR ABSCESS W/O BLEED SNOMED Code(s): 804937035 (2) Leukocytosis Current Visit: No Status: Acute Code(s): D72.829 - ELEVATED WHITE BLOOD CELL COUNT, UNSPECIFIED SNOMED Code(s): 759609404 Plan: 1patient with leukocytosis in this patient presented hospital abdominal pain and also noticed to have abnormality on the CT suggestive of colitis/diverticulitis with contained perforation likely etiology of her leukocytosis and will need to cover for the enteric gram-negative both aerobes and anaerobes. 2patient to continue with Zosyn and monitor clinical course closely Dictation was produced using [employer] dictation software. please excuse any grammatical, word or spelling errors. Time with Patient: Less than 30
--- NOTE | 2023-11-25 02:53 | PN ---
PROGRESS NOTE DATE OF SERVICE: 11/24/2023 I am covering for Dr. Kunz. SUBJECTIVE: This is an 83-year-old woman who was admitted with acute diverticulitis, possibly abscess and sepsis, is being closely monitored. The patient received some IV fluids. Chest x-rays today showed some mild fluid overload. I would give Lasix 20 mg IV today. There is no history of any fever or rigors. Multiple consultants are following the patient. The patient is on broad-spectrum IV antibiotics. PAST MEDICAL HISTORY: Reviewed. REVIEW OF SYSTEMS: A 14-point review is negative except as mentioned earlier. CURRENT MEDICATIONS: IV Zosyn, doses and rest of medications noted. PHYSICAL EXAMINATION: VITAL SIGNS: Pulse is 60, blood pressure 94/61, respirations 16. HEENT: Conjunctivae normal. NECK: No jugular venous distention. CARDIOVASCULAR: S1, S2. RESPIRATIONS: Diminished at the bases, few scattered rhonchi. ABDOMEN: Soft, mild discomfort. No guarding, no rigidity, no mass palpable. LEGS: No edema, no swelling. NERVOUS SYSTEM: Nonfocal. LABORATORY DATA: Creatinine 1.16, rest of the labs are noted. ASSESSMENT: 1. Acute diverticulitis on the right side with possibly focal contained perforation abscess with sepsis. 2. Acute renal failure with hyperkalemia, present on admission, improving. 3. Elevated WBC. 4. Hypotension, improved. 5. Severe abdominal pain. 6. History of atrial fibrillation. 7. Diabetes mellitus type 2. 8. Hypertension history. 9. Hyperlipidemia. 10.History of bowel resection. 11.Multiple complex medical issues. RECOMMENDATIONS AND DISCUSSION: Recommended to continue current medications, continue symptomatic treatment. Otherwise, continue the antibiotics. Cultures are negative so far. Repeat labs will be ordered. Single dose of Lasix IV. Monitor fluid electrolyte balance closely. Closely follow with multiple consultants. The patient is currently stable but overall prognosis guarded because of the above-mentioned multiple complex medical issues. Dr. Kunz will follow tomorrow. MMODL / IJN: [id number] /
[2023-11-25] MEDS: FUROSEMIDE 40 MG TAB PO SCH (07:41)
[2023-11-25 08:45] LABS: Basophils % (A) 0 %; Eosinophils # (A) 0.1 k/uL (0-0.7); Eosinophils % (A) 1 %; HGB 9.9 gm/dL (11.4-16.0); Lymphocytes # (A) 1.3 k/uL (1.0-4.8); Lymphocytes % (A) 13 %; MCV 96.7 fL (80.0-100.0); Mean Platelet Volume 9.6; Monocytes # (A) 0.6 k/uL (0-1.0); Monocytes % (A) 6 %; Neutrophils % (A) 79 %; Platelet Count 188 k/uL (150-450); RBC 3.21 m/uL (3.80-5.40); RDW 14.4 % (11.5-15.5); WBC 10.2 k/uL (3.8-10.6)
[2023-11-25 10:12] LABS: ALT 9 U/L (4-34); AST 17 U/L (14-36); African American GFR (CKD) 62 (>60 ml/min/1.73 sqM); Albumin 3.4 g/dL (3.5-5.0); Alkaline Phosphatase 62 U/L (38-126); Anion Gap 7 mmol/L; Blood Urea Nitrogen 20 mg/dL (7-17); Calcium 9.7 mg/dL (8.4-10.2); Carbon Dioxide 21 mmol/L (22-30); Chloride 108 mmol/L (98-107); Glucose 104 mg/dL (74-99); Non-African American GFR(CKD) 54 (>60 ml/min/1.73 sqM); Potassium 4.9 mmol/L (3.5-5.1); Sodium 136 mmol/L (137-145); Total Protein 6.2 g/dL (6.3-8.2)
--- NOTE | 2023-11-25 14:08 | P.PN ---
Subjective Progress Note Date: 11/25/23 CHIEF COMPLAINT: Diverticulitis HISTORY OF PRESENT ILLNESS: Patient has no abdominal pain. She is tolerating regular diet. She did have a solid bowel movement this morning. She denies any nausea or vomiting. Stool for C. difficile was negative. Afebrile. WBC is down from 11.3-10.2 Hgb 9.9 platelets 188 PHYSICAL EXAM: VITAL SIGNS: Reviewed. GENERAL: Well-developed in no acute distress. ABDOMEN: Soft. Nondistended. Nontender. NEUROLOGIC: Alert and oriented. Cranial nerves II through XII grossly intact. ASSESSMENT: 1. Acute diverticulitis PLAN: -Continue regular diet -Patient can be discharged from surgical standpoint with antibiotics when medically cleared -Discharge antibiotics per infectious disease Physician Salvager note has been reviewed by physician. Signing provider agrees with the documented findings, assessment, and plan of care. I have personally seen and examined the patient, reviewed the FINISHING AREA OPERATOR /PAs history, exam and MDM and agree with the assessment and plan as written. Based on total visit time, I have performed more than 50% of the visit. As above: Patient doing well today. Tolerating diet. White blood cell count normal. Continue regular diet. Discharge tomorrow. Follow-up in office. Plan repeat CT 1 to 2 weeks. Objective - Vital Signs Vital signs: Vital Signs Temp 98 F 11/25/23 11:20 Pulse 65 11/25/23 11:20 Resp 17 11/25/23 11:20 BP 124/89 11/25/23 11:20 Pulse Ox 99 11/25/23 11:20 FiO2 Intake & Output 11/24/23 11/25/23 11/25/23 18:59 06:59 18:59 Intake Total 200 118 Balance 200 118 Intake: Intake, IV Titration 200 Amount Piperacillin-Tazobactam 3 100 .375 gm In Sodium Chloride 0.9% 100 ml @ 25 mls/hr IVPB Q8H REYNA Rx#: [id number] metroNIDAZOLE-NS PMX 500 100 mg In Saline 1 100ml.bag @ 100 mls/hr IVPB Q8H REYNA Rx#:[id number] Oral 118 Other: Voiding Method Bedside Commode Bedside Commode Bedside Commode # Voids 4 1 2 # Bowel Movements 3 1 - Labs CBC & Chem 7: 11/25/23 08:00 11/25/23 08:00 Labs: Abnormal Lab Results - Last 24 Hours (Table) 11/25/23 11/25/23 Range/Units 08:00 08:00 RBC 3.21 L (3.80-5.40) m/uL Hgb 9.9 L (11.4-16.0) gm/dL Hct 31.0 L (34.0-46.0) % Neutrophils # 8.0 H (1.3-7.7) k/uL Sodium 136 L (137-145) mmol/L Chloride 108 H (98-107) mmol/L Carbon Dioxide 21 L (22-30) mmol/L BUN 20 H (7-17) mg/dL Glucose 104 H (74-99) mg/dL Total Protein 6.2 L (6.3-8.2) g/dL Albumin 3.4 L (3.5-5.0) g/dL Microbiology - Last 24 Hours (Table) 11/21/23 18:35 Blood Culture - Preliminary Blood 11/21/23 18:50 Blood Culture - Preliminary Blood
--- NOTE | 2023-11-25 14:15 | P.PN ---
Subjective Progress Note Date: 11/25/23 HISTORY OF PRESENT ILLNESS: This is a 83-year-old female with a previous medical history signif icant for hypertension and hypertensive cardiovascular disease, hyperlipidemia, nonischemic cardiomyopathy status post biventricular AICD/permanent pacemaker, paroxysmal atrial fibrillation, gout, malignant neoplasm of the right breast, hypothyroidism. Patient was seen by her primary care provider in the outpatient setting, complaining of severe right lower quadrant abdominal pain. Patient also has a significant history of diverticulitis in the past and felt similar symptoms. The CT scan of the abdomen and pelvis showed abdominal findings involving the colon, the right upper quadrant may be related to focal colitis. There is a contained perforation that was suspected. The patient was also seen by surgery and infectious disease and recommended broad-spectrum antibiotics and continued monitoring. There is no history of fever, rigors, chills at this time patient was subsequently admitted to the hospital. 11/24: Patient sitting up in bed at this time. She denies abdominal pain, marcie rrhea, bloody stools. Patient states her stools have become more formed starting this morning. Patient has also advanced to a regular low fiber diet. Patient was also seen by cardiology over the weekend due to hypotensive episode and past medical history of hypertension, ventricular tachycardia, and atrial fibrillation fibrillation, post AV node ablation, as well as nonischemic cardiomyopathy and congestive heart failure. Her Toprol XL was discontinued and she was given 500 cc IV fluid bolus and has remained normotensive. Continue IV Zosyn and IV Flagyl. Patient will likely be eligible for discharge on oral antibiotics within the next 24 to 48 hours pending specialty recommendation as well. REVIEW OF SYSTEMS: Constitutional: No documented fever, no chills, no night sweats. No weight change. No weakness, fatigue or lethargy. No daytime sleepiness. HEENT: No headache. No blurred vision or double vision, no loss of vision. No loss of Hearing, no ringing in the ears, no dizziness. No nasal drainage or congestion. No epistaxis. No sore throat. Lungs: Negative shortness of breath, no cough, no sputum production. No wheezing. Reports dyspnea with activity. Cardiovascular: positive for chest pain, positive for lower extremity edema. No palpitations. No paroxysmal nocturnal dyspnea. No orthopnea. No lightheadedness or dizziness. No syncopal episodes. Abdominal: Reports abdominal pain. No nausea, vomiting. Positive diarrhea. No constipation. Positive blood in stool, decreased appetite. Genitourinary: No dysuria, increased frequency, urgency. No urinary retention. Musculoskeletal: No myalgias. No muscle weakness, no gait dysfunction, no frequent falls. No back pain. No neck pain. Integumentary: No wounds, no lesions. No rash or pruritus. No unusual bruising. No change in hair or nails. Neurologic: No aphasia. No facial droop. No change in mentation. No head injury. No headache. No paralysis. No paresthesia. Psychiatric: No depression. No anxiety. No mood swings. Endocrine: No abnormal blood sugars. No weight change. PHYSICAL EXAMINATION: General: 83-year-old female sitting up in bed in no apparent distress. HEENT: Head is atraumatic, normocephalic, pupils were equal round reactive to light and recommendation, extraocular muscle movement were intact, sclera nonicteric. Neck: Supple, no JVP, normal carotid upstroke bilaterally, no lymphadenopathy. Chest: Decreased breath sounds at the bases, few rhonchi, no expiratory wheezes, no chest wall tenderness, no intercostal retractions. Heart: First heart sound is normal, second heart sounds normal, AICD in the left upper precordium. Abdomen: Soft, mildly tender, nondistended, positive bowel sounds. Extremities: There is no edema no calf tenderness DP +2 bilaterally. Neurologic examination: Patient is awake alert and oriented X3, cranial nerves II-12 appear grossly intact, muscle power were 5 out of 5 in upper extremities and 5 out of 5 in bilateral lower extremities, deep tendon reflexes normal bilaterally. ASSESSMENT AND PLAN: 1. Acute diverticulitis on the right side with possible focal contained perforation, possible sepsis. Continue IV Flagyl and IV Zosyn. White count has normalized. 2. Acute renal failure with hyperkalemia. BUN and creatinine have improved to 20 into 0.99, respectively. Potassium is now 4.9. 3. Paroxysmal atrial fibrillation. Continue Xarelto 15 mg once daily. 4. Hypertension and hypertensive cardiovascular disease. Toprol XL was discontinued. 5. Hyperlipidemia. Continue atorvastatin 20 mg orally once every day. 6. Hypothyroidism. Continue patient on Synthroid 75 g orally once every day. 7. DVT prophylaxis. Continue Xarelto 50 mg once daily. 8. GI prophylaxis. Continue pantoprazole 40 mg IV push twice daily. 9. Full code. Impression and plan of care have been directed as dictated by the signing physician. Rubia Corona, nurse practitioner acting as scribe for signing physician. Objective - Vital Signs Vital signs: Vital Signs Temp 98 F 11/25/23 11:20 Pulse 65 11/25/23 11:20 Resp 17 11/25/23 11:20 BP 124/89 11/25/23 11:20 Pulse Ox 99 11/25/23 11:20 FiO2 Intake & Output 11/24/23 11/25/23 11/25/23 18:59 06:59 18:59 Intake Total 200 118 Balance 200 118 Intake: Intake, IV Titration 200 Amount Piperacillin-Tazobactam 3 100 .375 gm In Sodium Chloride 0.9% 100 ml @ 25 mls/hr IVPB Q8H REYNA Rx#: [id number] metroNIDAZOLE-NS PMX 500 100 mg In Saline 1 100ml.bag @ 100 mls/hr IVPB Q8H REYNA Rx#:[id number] Oral 118 Other: Voiding Method Bedside Commode Bedside Commode Bedside Commode # Voids 4 1 2 # Bowel Movements 3 1 - Labs CBC & Chem 7: 11/25/23 08:00 11/25/23 08:00 Labs: Abnormal Lab Results - Last 24 Hours (Table) 11/25/23 11/25/23 Range/Units 08:00 08:00 RBC 3.21 L (3.80-5.40) m/uL Hgb 9.9 L (11.4-16.0) gm/dL Hct 31.0 L (34.0-46.0) % Neutrophils # 8.0 H (1.3-7.7) k/uL Sodium 136 L (137-145) mmol/L Chloride 108 H (98-107) mmol/L Carbon Dioxide 21 L (22-30) mmol/L BUN 20 H (7-17) mg/dL Glucose 104 H (74-99) mg/dL Total Protein 6.2 L (6.3-8.2) g/dL Albumin 3.4 L (3.5-5.0) g/dL Microbiology - Last 24 Hours (Table) 11/21/23 18:35 Blood Culture - Preliminary Blood 11/21/23 18:50 Blood Culture - Preliminary Blood
--- NOTE | 2023-11-25 14:46 | P.PN ---
Subjective Patient is doing well. Her abdominal symptoms have improved considerably. She is not n.p.o. any further No cramping no diarrhea She denies any shortness of breath on exertion. No orthopnea PND No chest pain On examination blood pressure 124/89 mmHg pulse rate in the 60s afebrile Normal heart sounds no murmurs or gallop ICD site is healed well No edema Interpretation of labs Anemia hemoglobin 9.9 normal white count Normal platelet count Sodium 136 potassium 4.9 both normal BUN 20 and creatinine 0.99 Impression Patient admitted with diverticulitis Known nonischemic cardiomyopathy with chronic LV systolic dysfunction with stable chronic heart failure without any exacerbation On guideline directed medical treatment Entresto and spironolactone was on hold when her creatinine was 1.65 but this has normalized now to 0.99 Plan Patient will be discharged home within the next 24 to 48 hours from a cardiovascular standpoint She may resume Entresto and spironolactone in the next 48 hours Follow-up with Dr. Mireles in 2 months follow-up with Dr. Mireles in 6 to 8 weeks Objective - Vital Signs Vital signs: Vital Signs Temp 98 F 11/25/23 11:20 Pulse 65 11/25/23 11:20 Resp 17 11/25/23 11:20 BP 124/89 11/25/23 11:20 Pulse Ox 99 11/25/23 11:20 FiO2 Intake & Output 11/24/23 11/25/23 11/25/23 18:59 06:59 18:59 Intake Total 200 118 Balance 200 118 Intake: Intake, IV Titration 200 Amount Piperacillin-Tazobactam 3 100 .375 gm In Sodium Chloride 0.9% 100 ml @ 25 mls/hr IVPB Q8H REYNA Rx#: [id number] metroNIDAZOLE-NS PMX 500 100 mg In Saline 1 100ml.bag @ 100 mls/hr IVPB Q8H REYNA Rx#:[id number] Oral 118 Other: Voiding Method Bedside Commode Bedside Commode Bedside Commode # Voids 4 1 1 # Bowel Movements 3 1 - Labs CBC & Chem 7: 11/25/23 08:00 11/25/23 08:00 Labs: Abnormal Lab Results - Last 24 Hours (Table) 11/25/23 11/25/23 Range/Units 08:00 08:00 RBC 3.21 L (3.80-5.40) m/uL Hgb 9.9 L (11.4-16.0) gm/dL Hct 31.0 L (34.0-46.0) % Neutrophils # 8.0 H (1.3-7.7) k/uL Sodium 136 L (137-145) mmol/L Chloride 108 H (98-107) mmol/L Carbon Dioxide 21 L (22-30) mmol/L BUN 20 H (7-17) mg/dL Glucose 104 H (74-99) mg/dL Total Protein 6.2 L (6.3-8.2) g/dL Albumin 3.4 L (3.5-5.0) g/dL Microbiology - Last 24 Hours (Table) 11/21/23 18:35 Blood Culture - Preliminary Blood 11/21/23 18:50 Blood Culture - Preliminary Blood
--- NOTE | 2023-11-25 15:09 | P.PN ---
Subjective Progress Note Date: 11/25/23 Principal diagnosis: Abdominal pain secondary to diverticulitis I was asked to evaluate this patient because of hypotension as the patient was hospitalized for an acute diverticulitis. The patient presented to us because of right-sided abdominal pain. The patient was found to have diverticulitis. The patient was seen by general surgery. The patient undergone previous sigmoid resection back in 2007. The patient was having some limited diarrhea blood and her symptoms started around 3 to 4 days prior to her hospital admission. Her last colonoscopy was done less than a year ago. The white cell count is at 13.8. Hemoglobin is 11.1 and platelet count of 187. BUN is 52 with a creatinine of 1.65 and a serum bicarb is at 12 and sodium levels at 134 and a potassium level is at 4.2. LFTs are normal. Stool for significant been negative. Patient is currently covered with IV Zosyn. Patient is also on Flagyl. General surgery is on the case. As far as hemodynamics, patient's blood pressure is soft at 91/57. Nevertheless, she has not required any pressors. Oxygenation is stable with a pulse ox of 98% room air oxygen the patient remains on normal citrate of 75 cc an hour. No respiratory distress. Does not look toxic at all. Some incisional tenderness is present in the right upper quadrant. On 11/24/2023, the patient is stable. No significant abdominal pain. Remains on Zosyn and Flagyl. General surgery is on the case. The patient has some limited pain in the right lower quadrant. Pain is around 3 out of 10 in severity. No diarrhea. Tolerating full liquid diet at this point in time. No significant shortness of breath. Diuretics were also given and the patient is producing adequate amount of urine output. Remains in atrial fibrillation. Remains on anticoagulation with Xarelto. No other new complaints noted. Patient was evaluated today on 11/25/2023, patient is doing well, relatively asymptomatic, remains on Zosyn and Flagyl, no surgical intervention is felt to be necessary at this point. In the meantime the patient is clinically improving, she is hemodynamically stable, and not in any distress. Patient remains on room air, O2 sats is 99%, blood pressure is 124/89. WBC count is 10.2 hemoglobin 9.9 electrolytes are normal and renal profile is normal, C. difficile screen is negative. Objective - Vital Signs Vital signs: Vital Signs Temp 98 F 11/25/23 11:20 Pulse 65 11/25/23 11:20 Resp 17 11/25/23 11:20 BP 124/89 11/25/23 11:20 Pulse Ox 99 11/25/23 11:20 FiO2 Intake & Output 11/24/23 11/25/23 11/25/23 18:59 06:59 18:59 Intake Total 200 118 Balance 200 118 Intake: Intake, IV Titration 200 Amount Piperacillin-Tazobactam 3 100 .375 gm In Sodium Chloride 0.9% 100 ml @ 25 mls/hr IVPB Q8H RE[facility]NA Rx#: [id number] metroNIDAZOLE-NS PMX 500 100 mg In Saline 1 100ml.bag @ 100 mls/hr IVPB Q8H REYNA Rx#:[id number] Oral 118 Other: Voiding Method Bedside Commode Bedside Commode Bedside Commode # Voids 4 1 1 # Bowel Movements 3 1 - Exam General: The patient is awake and alert, in no distress, and does not appear acutely ill. On room air Skin: Skin is warm and dry and no rashes or lesions are noted. Eye: Pupils are equal, round and reactive to light, extra-ocular movements are intact; there is normal conjunctiva bilaterally. Ears, nose, mouth and throat: There are moist mucous membranes and no oral lesions. Neck: The neck is supple, there is no tenderness or JVD. Cardiovascular: There is a regular rate and rhythm. No murmur, rub or gallop is appreciated. Respiratory: Clear throughout no crackles rhonchi or wheezes Gastrointestinal: Soft, non-distended, non-tender abdomen without masses or organomegaly noted. There is no rebound or guarding present. Bowel sounds are unremarkable. Back: There is no tenderness to palpation in the midline. There is no obvious deformity. Musculoskeletal: Normal ROM, no tenderness, There is no pedal edema. There is no calf tenderness or swelling. No cords were appreciated. Neurological: CN II-XII intact, Cranial nerves III through XII are intact. There are no obvious motor or sensory deficits. Coordination appears grossly intact. Speech is normal. Psychiatric: Cooperative, appropriate mood & affect, normal judgment. - Labs CBC & Chem 7: 11/25/23 08:00 11/25/23 08:00 Labs: Abnormal Lab Results - Last 24 Hours (Table) 11/25/23 11/25/23 Range/Units 08:00 08:00 RBC 3.21 L (3.80-5.40) m/uL Hgb 9.9 L (11.4-16.0) gm/dL Hct 31.0 L (34.0-46.0) % Neutrophils # 8.0 H (1.3-7.7) k/uL Sodium 136 L (137-145) mmol/L Chloride 108 H (98-107) mmol/L Carbon Dioxide 21 L (22-30) mmol/L BUN 20 H (7-17) mg/dL Glucose 104 H (74-99) mg/dL Total Protein 6.2 L (6.3-8.2) g/dL Albumin 3.4 L (3.5-5.0) g/dL Microbiology - Last 24 Hours (Table) 11/21/23 18:35 Blood Culture - Preliminary Blood 11/21/23 18:50 Blood Culture - Preliminary Blood Assessment and Plan Assessment: Impression: Acute abdominal pain secondary to diverticulitis, resolved Chronic A-fib, maintained on anticoagulation History of biventricular pacemaker insertion History of nonischemic cardiomyopathy with class II CHF, the patient has a previous LV function of less than 30% with subsequent improvement in the LV func tion based on the most recent echocardiogram ejection fraction has been above 30% 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
--- NOTE | 2023-11-25 15:48 | P.PN ---
Subjective Progress Note Date: 11/25/23 Principal diagnosis: Reason for follow-up is acute diverticulitis and leukocytosis Patient is a 83-year-old female with a past medical history significant for atrial fibrillation DVT hyperlipidemia hypertension LA and diverticulitis presenting to the hospital for abdominal pain has been diagnosed with acute diverticulitis with possible contained perforation. On today's evaluation that is 11/25/2023, patient has been afebrile, patient is breathing comfortably and is currently on room air, patient denies having any significant cough no chest pain shortness of breath, patient did have improvement her abdominal pain and mention he did have a formed bowel movement n o further bleeding per rectum. Patient white count has normalized to 10.2, creatinine 0.99 blood culture has been negative Objective - Vital Signs Vital signs: Vital Signs Temp 98 F 11/25/23 11:20 Pulse 65 11/25/23 11:20 Resp 17 11/25/23 11:20 BP 124/89 11/25/23 11:20 Pulse Ox 99 11/25/23 11:20 FiO2 Intake & Output 11/24/23 11/25/23 11/25/23 18:59 06:59 18:59 Intake Total 200 118 Balance 200 118 Intake: Intake, IV Titration 200 Amount Piperacillin-Tazobactam 3 100 .375 gm In Sodium Chloride 0.9% 100 ml @ 25 mls/hr IVPB Q8H REYNA Rx#: [id number] metroNIDAZOLE-NS PMX 500 100 mg In Saline 1 100ml.bag @ 100 mls/hr IVPB Q8H REYNA Rx#:[id number] Oral 118 Other: Voiding Method Bedside Commode Bedside Commode Bedside Commode # Voids 4 1 2 # Bowel Movements 3 1 - Exam GENERAL DESCRIPTION: An elderly female lying in bed in no distress RESPIRATORY SYSTEM: Unlabored breathing , decreased breath sounds at bases HEART: S1 S2 regular rate and rhythm , ABDOMEN: Soft , no tenderness EXTREMITIES: No edema feet - Labs CBC & Chem 7: 11/25/23 08:00 11/25/23 08:00 Labs: Abnormal Lab Results - Last 24 Hours (Table) 11/25/23 11/25/23 Range/Units 08:00 08:00 RBC 3.21 L (3.80-5.40) m/uL Hgb 9.9 L (11.4-16.0) gm/dL Hct 31.0 L (34.0-46.0) % Neutrophils # 8.0 H (1.3-7.7) k/uL Sodium 136 L (137-145) mmol/L Chloride 108 H (98-107) mmol/L Carbon Dioxide 21 L (22-30) mmol/L BUN 20 H (7-17) mg/dL Glucose 104 H (74-99) mg/dL Total Protein 6.2 L (6.3-8.2) g/dL Albumin 3.4 L (3.5-5.0) g/dL Microbiology - Last 24 Hours (Table) 11/21/23 18:35 Blood Culture - Preliminary Blood 11/21/23 18:50 Blood Culture - Preliminary Blood Assessment and Plan (1) Acute diverticulitis Current Visit: Yes Status: Acute Code(s): K57.92 - DVTRCLI OF INTEST, PART UNSP, W/O PERF OR ABSCESS W/O BLEED SNOMED Code(s): 526278219 (2) Leukocytosis Current Visit: No Status: Acute Code(s): D72.829 - ELEVATED WHITE BLOOD CELL COUNT, UNSPECIFIED SNOMED Code(s): 007734180 Plan: 1patient with leukocytosis in this patient presented hospital abdominal pain and also noticed to have abnormality on the CT suggestive of colitis/diverticulitis with contained perforation likely etiology of her leukocytosis and will need to cover for the enteric gram-negative both aerobes and anaerobes. 2patient to continue with Zosyn and plan to finish therapy with oral Ceftin and Flagyl on discharge Dictation was produced using [employer] dictation software. please excuse any grammatical, word or spelling errors. Time with Patient: Less than 30
--- NOTE | 2023-11-25 18:46 | CA ---
Transthoracic Echo Report Name: Berenice Miranda Age: 83 Gender: F : 1940 Exam Date: 11/25/2023 13:45 Exam Location: [place] [facility] Ht (in): 64 Wt (lb): 194 Ordering Physician: Merlene Bunch Attending/Referring Phys: [id number], Alivia Registered Occupational Therapist Aleja Byrd RDCS Procedure CPT: Indications: LVF Cardiac Hx: Technical Quality: Technically difficult study Contrast 1: Total Dose (mL): Contrast 2: Total Dose (mL): MEASUREMENTS (Male / Female) Normal Values 2D ECHO LV Diastolic Diameter PLAX 6.6 cm 4.2 - 5.9 / 3.9 - 5.3 cm LV Systolic Diameter PLAX 6.3 cm IVS Diastolic Thickness 0.5 cm 0.6 - 1.0 / 0.6 - 0.9 cm LVPW Diastolic Thickness 0.8 cm 0.6 - 1.0 / 0.6 - 0.9 cm LV Relative Wall Thickness 0.2 RV Internal Dim ED PLAX 3.2 cm LVOT Diameter 2.1 cm LA Volume 221.6 cm??? 18 - 58 / 22 - 52 cm??? LA Volume Index 109.2 cm???/m??? 16 - 28 cm???/m??? Ascending Aorta Diameter 3.4 cm DOPPLER AV Peak Velocity 154.5 cm/s AV Peak Gradient 9.6 mmHg AV Mean Velocity 102.5 cm/s AV Mean Gradient 4.9 mmHg AV Velocity Time Integral 33.7 cm LVOT Peak Velocity 87.5 cm/s LVOT Peak Gradient 3.1 mmHg LVOT Velocity Time Integral 18.4 cm LVOT Stroke Volume 64.7 cm??? LVOT Stroke Volume Index 33.5 ml/m??? LVOT Cardiac Index 1978.1 cm???/min???m??? AV Area Cont Eq vti 1.9 cm??? AV Area Cont Eq pk 2.0 cm??? TR Peak Velocity 254.6 cm/s TR Peak Gradient 25.9 mmHg Right Atrial Pressure 15.0 mmHg Pulmonary Artery Systolic Pressu 40.9 mmHg Right Ventricular Systolic Press 40.9 mmHg PV Peak Velocity 81.8 cm/s PV Peak Gradient 2.7 mmHg FINDINGS Left Ventricle Left ventricular ejection fraction is estimated at 20-25 %. Severely increased left ventricular diastolic diameter. Left ventricular wall thickness normal. Hypokinetic basal segments Right Ventricle Normal right ventricular size and function. Mildly elevated right ventricular systolic pressure. Right Atrium Severe right atrial dilatation. Catheter/pacemaker wire in the right atrial cavity. Left Atrium Severely increased left atrial volume. Severely increased left atrial area. Mitral Valve Mitral valve thickened. Mitral annular calcification. No evidence for mitral valve prolapse. No mitral stenosis. Moderate mitral regurgitation. Aortic Valve Trileaflet aortic valve. No aortic stenosis. Trace aortic regurgitation. Tricuspid Valve Structurally normal tricuspid valve. No tricuspid stenosis. Mild tricuspid regurgitation. Pulmonic Valve Structurally normal pulmonic valve. No pulmonic stenosis. Mild pulmonic regurgitation. Pericardium No pericardial effusion. Aorta Normal size aortic root and proximal ascending aorta. CONCLUSIONS Left ventricular ejection fraction is estimated at 20-25 %. Hypokinetic basal segments. PPM wire noticed in RA and RV Severe biatrial dilatation RVSP 40 mmHg Moderate MR Pericardial effusion Previewed by: Dr Elías Marcelo (Electronically Signed) Final Date: 25 Nov 2023 18:46
[2023-11-26 04:52] VITALS: RESP 18
[2023-11-26 11:42] VITALS: TEMP 97.6
[2023-11-26] MEDS: SACUBITRIL/VALSARTAN 24 MG-26 MG TABLET PO SCH (11:54)
--- NOTE | 2023-11-26 12:53 | P.PN ---
Subjective Progress Note Date: 11/26/23 CHIEF COMPLAINT: Diverticulitis HISTORY OF PRESENT ILLNESS: Patient has no abdominal pain. She is tolerating regular diet. She reports having bowel movements. She denies any nausea or vomiting. Afebrile. No new labs PHYSICAL EXAM: VITAL SIGNS: Reviewed. GENERAL: Well-developed in no acute distress. ABDOMEN: Soft. Nondistended. Nontender. NEUROLOGIC: Alert and oriented. Cranial nerves II through XII grossly intact. ASSESSMENT: 1. Acute diverticulitis PLAN: -Continue regular diet -Discharge antibiotics per infectious disease -Patient can be discharged from surgical standpoint Physician Carpentry Supervisor note has been reviewed by physician. Signing provider agrees with the documented findings, assessment, and plan of care. Objective - Vital Signs Vital signs: Vital Signs Temp 97.6 F 11/26/23 08:00 Pulse 75 11/26/23 08:00 Resp 18 11/26/23 08:00 BP 114/67 11/26/23 08:00 Pulse Ox 97 11/26/23 08:00 FiO2 Intake & Output 11/25/23 11/26/23 11/26/23 18:59 06:59 18:59 Intake Total 358 10 350 Balance 358 10 350 Weight 90.6 kg Intake: IV 10 Invasive Line 2 10 Oral 358 350 Other: Voiding Method Bedside Commode Toilet # Voids 1 1 - Labs CBC & Chem 7: 11/25/23 08:00 11/25/23 08:00
--- NOTE | 2023-11-26 13:18 | P.PN ---
Subjective HISTORY OF PRESENT ILLNESS: Patient examined this morning at the bedside. Patient denies any chest pain or pressure. She denies any shortness of breath. Vital signs are stable. PHYSICAL EXAM: VITAL SIGNS: Reviewed. GENERAL: Well-developed in no acute distress. NECK: Supple. No JVD or thyromegaly LUNGS: Respirations even and unlabored. Lungs essentially clear to auscultation bilaterally. HEART: Regular rate and rhythm. S1 and S2 heard. EXTREMITIES: Normal range of motion. No clubbing or cyanosis. Peripheral pulses intact. No lower extremity edema ASSESSMENT: Acute diverticulitis Known nonischemic cardiomyopathy Chronic heart failure with reduced EF, currently euvolemic Acute kidney injury, resolved PLAN: Continue current cardiac medications Resume Entresto today Patient instructed to resume her Aldactone in 2 days No further inpatient recommendations from a cardiac standpoint Discharge per medicine Nurse practitioner note has been reviewed by physician. Signing provider agrees with the documented findings, assessment, and plan of care documented by COTTON JAMMER as a scribe. Objective - Vital Signs Vital signs: Vital Signs Temp 97.6 F 11/26/23 08:00 Pulse 75 11/26/23 08:00 Resp 18 11/26/23 08:00 BP 114/67 11/26/23 08:00 Pulse Ox 97 11/26/23 08:00 FiO2 Intake & Output 11/25/23 11/26/23 11/26/23 18:59 06:59 18:59 Intake Total 358 10 350 Balance 358 10 350 Weight 90.6 kg Intake: IV 10 Invasive Line 2 10 Oral 358 350 Other: Voiding Method Bedside Commode Toilet # Voids 1 1 - Labs CBC & Chem 7: 11/25/23 08:00 11/25/23 08:00
[2023-11-26 13:34] VITALS: BP 101/65; PULSE 60; BMI 34.2
--- NOTE | 2023-11-26 14:51 | P.DS ---
Providers Date of admission: 11/21/23 17:47 Expected date of discharge: 11/26/23 Attending physician: Kostas Kunz Consults: 11/21/23 18:19 Consult Physician Urgent Consulting Provider: Donald Mata Consult Reason/Comments: diverticulitis with possible perforation Do you want consulting provider notified?: Yes 11/22/23 14:20 Consult Physician Routine Consulting Provider: Jermaine Gorman Consult Reason/Comments: Leukocytosis Do you want consulting provider notified?: Yes 11/22/23 16:47 Consult Physician Urgent Consulting Provider: Charles Fontenot Consult Reason/Comments: hypotension, sepsis? diverticulitis, icu eval Do you want consulting provider notified?: Yes 11/22/23 16:59 Consult Physician Urgent Consulting Provider: Esdras Fabian Consult Reason/Comments: Low blood pressure, CHF Do you want consulting provider notified?: Yes Primary care physician: Kostas Kunz Hospital Course: HISTORY OF PRESENT ILLNESS: This is a 83-year-old female with a previous medical history significant for hypertension and hypertensive cardiovascular disease, hyperlipidemia, nonischemic cardiomyopathy status post biventricular AICD/permanent pacemaker, paroxysmal atrial fibrillation, gout, malignant neoplasm of the right breast, hypothyroidism. Patient was seen by her primary care provider in the outpatient setting, complaining of severe right lower quad rant abdominal pain. Patient also has a significant history of diverticulitis in the past and felt similar symptoms. The CT scan of the abdomen and pelvis showed abdominal findings involving the colon, the right upper quadrant may be related to focal colitis. There is a contained perforation that was suspected. The patient was also seen by surgery and infectious disease and recommended broad-spectrum antibiotics and continued monitoring. There is no history of fever, rigors, chills at this time patient was subsequently admitted to the hospital. 11/24: Patient sitting up in bed at this time. She denies abdominal pain, diarrhea, bloody stools. Patient states her stools have become more formed starting this morning. Patient has also advanced to a regular low fiber diet. Patient was also seen by cardiology over the weekend due to hypotensive episode and past medical history of hypertension, ventricular tachycardia, and atrial fibrillation fibrillation, post AV node ablation, as well as nonischemic cardiomyopathy and congestive heart failure. Her Toprol XL was discontinued and she was given 500 cc IV fluid bolus and has remained normotensive. Continue IV Zosyn and IV Flagyl. Patient will likely be eligible for discharge on oral antibiotics within the next 24 to 48 hours pending specialty recommendation as well. 11/25: Patient is doing a lot better today, she is tolerating her diet very well, she denies any chest pain, shortness of breath, she has been started on her Bumex, she is diuresing very well, she does not appear to be in acute heart failure at this time, she is ready to be discharged home today, and follow-up with me as an outpatient in the next week, she will be switched to oral Augmentin for the next 7 days, and I will see the patient in the office and she will will follow-up with general surgery Dr. Diehl in about 2 weeks from now, Discharge diagnoses: 1. Acute diverticulitis on the right side with possible focal contained perforation, possible sepsis. 2. Acute renal failure with hyperkalemia. 3. Paroxysmal atrial fibrillation. 4. Hypertension and hypertensive cardiovascular disease. 5. Hyperlipidemia. 6. Hypothyroidism. Patient Condition at Discharge: Stable Plan - Discharge Summary Discharge Rx Participant: Yes New Discharge Prescriptions: New Metoprolol Succinate (ER) [Toprol XL] 25 mg PO DAILY #30 tab Amoxic-Pot Clav 875-125Mg [Augmentin 875-125] 1 tab PO BID 1 Days #14 tab Continue Furosemide [Lasix] 40 mg PO BID@0800,1500 Levothyroxine Sodium [Synthroid] 75 mcg PO DAILY Sacubitril/Valsartan [Entresto 24 mg-26 mg Tablet] 1 tab PO BID allopurinoL [Zyloprim] 100 mg PO HS Atorvastatin [Lipitor] 20 mg PO HS Rivaroxaban [Xarelto] 15 mg PO HS Cholecalciferol [Vitamin D3 (25 Mcg = 1000 Iu)] 75 mcg PO DAILY Ubidecarenone [Coenzyme Q10] 200 mg PO DAILY Spironolactone [Aldactone] 25 mg PO DAILY Potassium Gluconate [Potassium Gluconate ER] 99 mg PO DAILY Magnesium 250 mg PO DAILY Discontinued Metoprolol Succinate [Toprol XL] 200 mg PO DAILY Discharge Medication List Furosemide [Lasix] 40 mg PO BID@0800,1500 11/30/13 [History] Levothyroxine Sodium [Synthroid] 75 mcg PO DAILY 10/20/17 [History] Sacubitril/Valsartan [Entresto 24 mg-26 mg Tablet] 1 tab PO BID 01/19/18 [History] allopurinoL [Zyloprim] 100 mg PO HS 01/27/20 [History] Atorvastatin [Lipitor] 20 mg PO HS 06/09/20 [History] Rivaroxaban [Xarelto] 15 mg PO HS 06/14/21 [History] Cholecalciferol [Vitamin D3 (25 Mcg = 1000 Iu)] 75 mcg PO DAILY 06/24/21 [History] Potassium Gluconate [Potassium Gluconate ER] 99 mg PO DAILY 06/24/21 [History] Ubidecarenone [Coenzyme Q10] 200 mg PO DAILY 12/27/22 [History] Magnesium 250 mg PO DAILY 11/21/23 [History] Spironolactone [Aldactone] 25 mg PO DAILY 11/21/23 [History] Amoxic-Pot Clav 875-125Mg [Augmentin 875-125] 1 tab PO BID 1 Days #14 tab 11/26/23 [Rx] Metoprolol Succinate (ER) [Toprol XL] 25 mg PO DAILY #30 tab 11/26/23 [Rx] Follow up Appointment(s)/Referral(s): Donald Mata MD [Medical Doctor] - 12/03/23 3:10 pm Donny Mireles MD [STAFF PHYSICIAN] - 12/08/23 11:00 am Kostas Kunz MD [Primary Care Provider] - 1 Week (Office closed for the day; please call to make a follow-up appointment with Dr. Kunz. ) Patient Instructions/Handouts: Diverticulitis (DC), Diverticulitis Diet (DC) Discharge Disposition: HOME SELF-CARE
--- NOTE | 2023-11-26 15:01 | P.PN ---
Subjective Progress Note Date: 11/26/23 Principal diagnosis: Abdominal pain secondary to diverticulitis I was asked to evaluate this patient because of hypotension as the patient was hospitalized for an acute diverticulitis. The patient presented to us because of right-sided abdominal pain. The patient was found to have diverticulitis. The patient was seen by general surgery. The patient undergone previous sigmoid resection back in 2007. The patient was having some limited diarrhea blood and her symptoms started around 3 to 4 days prior to her hospital admission. Her last colonoscopy was done less than a year ago. The white cell count is at 13.8. Hemoglobin is 11.1 and platelet count of 187. BUN is 52 with a creatinine of 1.65 and a serum bicarb is at 12 and sodium levels at 134 and a potassium level is at 4.2. LFTs are normal. Stool for significant been negative. Patient is currently covered with IV Zosyn. Patient is also on Flagyl. General surgery is on the case. As far as hemodynamics, patient's blood pressure is soft at 91/57. Nevertheless, she has not required any pressors. Oxygenation is stable with a pulse ox of 98% room air oxygen the patient remains on normal citrate of 75 cc an hour. No respiratory distress. Does not look toxic at all. Some incisional tenderness is present in the right upper quadrant. On 11/24/2023, the patient is stable. No significant abdominal pain. Remains on Zosyn and Flagyl. General surgery is on the case. The patient has some limited pain in the right lower quadrant. Pain is around 3 out of 10 in severity. No diarrhea. Tolerating full liquid diet at this point in time. No significant shortness of breath. Diuretics were also given and the patient is producing adequate amount of urine output. Remains in atrial fibrillation. Remains on anticoagulation with Xarelto. No other new complaints noted. Patient was evaluated today on 11/25/2023, patient is doing well, relatively asymptomatic, remains on Zosyn and Flagyl, no surgical intervention is felt to be necessary at this point. In the meantime the patient is clinically improving, she is hemodynamically stable, and not in any distress. Patient remains on room air, O2 sats is 99%, blood pressure is 124/89. WBC count is 10.2 hemoglobin 9.9 electrolytes are normal and renal profile is normal, C. difficile screen is negative. Patient was evaluated today on 11/26/2023, doing well, asymptomatic, no active pulmonary symptoms no nausea no vomiting no abdominal pain no diarrhea no melena no hematemesis. Patient is being considered for discharge home today. Objective - Vital Signs Vital signs: Vital Signs Temp 97.6 F 11/26/23 08:00 Pulse 60 11/26/23 12:00 Resp 18 11/26/23 14:00 BP 101/65 11/26/23 12:00 Pulse Ox 97 11/26/23 12:00 FiO2 Intake & Output 11/25/23 11/26/23 11/26/23 18:59 06:59 18:59 Intake Total 358 10 350 Output Total 650 Balance 358 10 -300 Weight 90.6 kg 90.6 kg Intake: IV 10 Invasive Line 2 10 Oral 358 350 Output: Urine 650 Other: Voiding Method Bedside Commode Toilet # Voids 1 1 - Exam General: The patient is awake and alert, in no distress, and does not appear acutely ill. On room air Skin: Skin is warm and dry and no rashes or lesions are noted. Eye: Pupils are equal, round and reactive to light, extra-ocular movements are intact; there is normal conjunctiva bilaterally. Ears, nose, mouth and throat: There are moist mucous membranes and no oral lesions. Neck: The neck is supple, there is no tenderness or JVD. Cardiovascular: There is a regular rate and rhythm. No murmur, rub or gallop is appreciated. Respiratory: Clear throughout no crackles rhonchi or wheezes Gastrointestinal: Soft, non-distended, non-tender abdomen without masses or organomegaly noted. There is no rebound or guarding present. Bowel sounds are unremarkable. Back: There is no tenderness to palpation in the midline. There is no obvious deformity. Musculoskeletal: Normal ROM, no tenderness, There is no pedal edema. There is no calf tenderness or swelling. No cords were appreciated. Neurological: CN II-XII intact, Cranial nerves III through XII are intact. There are no obvious motor or sensory deficits. Coordination appears grossly intact. Speech is normal. Psychiatric: Cooperative, appropriate mood & affect, normal judgment. 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
--- NOTE | 2023-11-27 16:45 | P.PN ---
Subjective Progress Note Date: 11/26/23 Principal diagnosis: Reason for follow-up is acute diverticulitis and leukocytosis Patient is a 83-year-old female with a past medical history significant for atrial fibrillation DVT hyperlipidemia hypertension OR and diverticulitis presenting to the hospital for abdominal pain has been diagnosed with acute diverticulitis with possible contained perforation. On today's evaluation that is 11/26/2023,the patient denies any fever or any chills, patient is breathing comfortably on room air, the patient denies chest pain shortness of breath and no significant cough, patient denies abdominal pain, no nausea vomiting or diarrhea. Feeling better symptoms. Patient white count 10.2 as of yesterday creatinine 0.9 Objective - Vital Signs Vital signs: Vital Signs Temp 97.6 F 11/26/23 08:00 Pulse 60 11/26/23 12:00 Resp 18 11/26/23 14:00 BP 101/65 11/26/23 12:00 Pulse Ox 97 11/26/23 12:00 FiO2 Intake & Output 11/25/23 11/26/23 11/26/23 18:59 06:59 18:59 Intake Total 358 10 350 Output Total 650 Balance 358 10 -300 Weight 90.6 kg 90.6 kg Intake: IV 10 Invasive Line 2 10 Oral 358 350 Output: Urine 650 Other: Voiding Method Bedside Commode Toilet # Voids 1 1 - Exam GENERAL DESCRIPTION: An elderly female lying in bed in no distress RESPIRATORY SYSTEM: Unlabored breathing , decreased breath sounds at bases HEART: S1 S2 regular rate and rhythm , ABDOMEN: Soft , no tenderness EXTREMITIES: No edema feet - Labs CBC & Chem 7: 11/25/23 08:00 11/25/23 08:00 Assessment and Plan (1) Acute diverticulitis Status: Acute Code(s): K57.92 - DVTRCLI OF INTEST, PART UNSP, W/O PERF OR ABSCESS W/O BLEED SNOMED Code(s): 588826954 (2) Leukocytosis Status: Acute Code(s): D72.829 - ELEVATED WHITE BLOOD CELL COUNT, UNSPECIFIED SNOMED Code(s): 492295858 Plan: 1patient with leukocytosis in this patient presented hospital abdominal pain and also noticed to have abnormality on the CT suggestive of colitis/diverticulitis with contained perforation likely etiology of her leukocytosis and will need to cover for the enteric gram-negative both aerobes and anaerobes. 2patient has shown clinical improvement and will be able to finish therapy with oral Ceftin and Flagyl on discharge diet also discussed with the patient Dictation was produced using [facility] dictation software. please excuse any gra mmatical, word or spelling errors. Time with Patient: Less than 30
--- NOTE | 2023-11-28 14:50 | CDI ---
Documentation Clarification Form Date: 11/28/2023 02:31:28 PM From: Linn Andres Admit Date: 11/21/2023 05:47:00 PM Patient Name: Berenice Miranda Visit Number: [id number] Discharge Date: 11/26/2023 03:36:00 PM ATTENTION: The Clinical Documentation Specialists (CDI) and [facility] Coding Staff appreciate your assistance in clarifying documentation. Please respond to the clarification below the line at the bottom and electronically sign. The CDI & [facility] Coding staff will review the response and follow-up if needed. Please note: Queries are made part of the Legal Health Record. If you have any questions, please contact the author of this message via ITS. Dr. Kostas Kunz Acute diverticulitis on the right side with possible focal contained perforation is documented in the H&P 11/23/23 and is subsequently documented throughout the chart to the Discharge Summary 11/26/23. The patient is also noted to have diarrhea with bright red blood in her stool per the ED Physician documentation from 11/21/23. Please clarify if there is a relationship between the acute diverticulitis with focal contained perforation and bleeding/blood in her stool. History/Risk Factors: patient is an 82 year old female with a history of AFib, DVT, and diverticulitis. Clinical Indicators: The patient presented with lower abdominal pain, and was found to have acute diverticulitis with contained perforation and possible sepsis. Patient reports bright red blood with bowel movements. Per the ED Note 11/21/23 patient reports recent diarrhea with bright red blood in her stool. Unsure if it is GI bleed or hemorrhoids. She reports blood is bright red and is present both in the toilet bowl and on toilet paper when she wipes. States bowel movements are very painful Progress Note 11/25/23 patient did have improvement in her abdominal pain and mentioned she did have a formed bowel movement with no further bleeding per rectum Hemoglobin 11/21/23: 12.4, 11/22/23: 10.7, 11/24/23: 9.5 Treatment: broad spectrum IV antibiotics, liquid diet, surgical evaluation, continued Xarelto but monitored Please clarify the relationship, if any, which is clinically appropriate for this patient: [ X ] Acute diverticulitis with contained perforation with bleeding [ ] Acute diverticulitis with contained perforation without bleeding [ ] Other explanation of clinical findings (please specify) [ ] Unable to determine (no explanation for clinical findings) MTDD
== END 2023-11-26 15:36 | disposition home or self-care (01) | DRG 871 ==
LOC: EC 11:54 → 5NMEDONC 17:47 → 3SCARD 11-22 17:13
PROVIDERS: ADMIT Internal Medicine; ATTEND Internal Medicine
DX: A41.9 Sepsis, unspecified organism (principal); K57.21 Diverticulitis of large intestine with perforation and abscess with bleeding; N17.9 Acute kidney failure, unspecified; I50.22 Chronic systolic (congestive) heart failure; I42.8 Other cardiomyopathies; E87.5 Hyperkalemia; I48.0 Paroxysmal atrial fibrillation; I11.0 Hypertensive heart disease with heart failure; M10.9 Gout, unspecified; E78.5 Hyperlipidemia, unspecified; E03.9 Hypothyroidism, unspecified; I25.10 Atherosclerotic heart disease of native coronary artery without angina pectoris; I08.1 Rheumatic disorders of both mitral and tricuspid valves; H91.91 Unspecified hearing loss, right ear; E11.9 Type 2 diabetes mellitus without complications; D64.9 Anemia, unspecified; Z87.891 Personal history of nicotine dependence; Z86.718 Personal history of other venous thrombosis and embolism; Z79.899 Other long term (current) drug therapy; Z79.890 Hormone replacement therapy; Z79.01 Long term (current) use of anticoagulants; Z88.6 Allergy status to analgesic agent; Z88.1 Allergy status to other antibiotic agents; Z85.3 Personal history of malignant neoplasm of breast; I25.2 Old myocardial infarction; Z95.810 Presence of automatic (implantable) cardiac defibrillator
CPT/HCPCS: 36415; 71045; 74176; 80048; 80053; 81001; 82150; 83605; 83690; 85025; 87040; 87324; 93306; 96374; 96375; 96376; 99285

== ENCOUNTER 2024-06-08 10:57 | Emergency (ER) | payer MEDICARE ==
--- NOTE | 2024-06-08 11:18 | ED ---
Dizziness HPI - General Source: patient, EMS, RN notes reviewed Mode of arrival: EMS Limitations: no limitations - History of Present Illness MD Complaint: dizziness, lightheadedness Onset/Timin -: days(s) Timing: sudden onset Description: sense of movement, lightheadedness, off-balance History of Same: No History of Trauma: No Associated Symptoms: shortness of breath <Cj Owens - Last Filed: 06/08/24 11:16> <Anabella Mandujano - Last Filed: 06/08/24 16:03> - General Chief Complaint: Dizziness Stated Complaint: dizzy Time Seen by Provider: 06/08/24 11:12 - History of Present Illness Initial Comments: Quick note: This is an 83-year-old female with history of AMI, A-fib and DVT presenting with constant dizziness x 2 days. Patient states dizziness worsens when bending forward position change. Endorses associated dyspnea. Endorses use of Xarelto. Patient states she lives alone. Denies associated headache, chest pain, sensation of room spinning, N/V. (Cj Owens) - Related Data Home Medications Medication Instructions Recorded Confirmed Furosemide [Lasix] 40 mg PO BID@0800,1500 11/30/13 06/08/24 Levothyroxine Sodium [Synthroid] 75 mcg PO DAILY 10/20/17 06/08/24 Sacubitril/Valsartan [Entresto 24 1 tab PO BID 01/19/18 06/08/24 mg-26 mg Tablet] allopurinoL [Zyloprim] 100 mg PO HS 01/27/20 06/08/24 Atorvastatin [Lipitor] 20 mg PO HS 06/09/20 06/08/24 Rivaroxaban [Xarelto] 15 mg PO HS 06/14/21 06/08/24 Cholecalciferol [Vitamin D3 (25 75 mcg PO DAILY 06/24/21 06/08/24 Mcg = 1000 Iu)] Potassium Gluconate [Potassium 99 mg PO W/LUNCH 06/24/21 06/08/24 Gluconate ER] Ubidecarenone [Coenzyme Q10] 200 mg PO W/LUNCH 12/27/22 06/08/24 Magnesium 250 mg PO W/LUNCH 11/21/23 06/08/24 Spironolactone [Aldactone] 25 mg PO DAILY 11/21/23 06/08/24 Fluticasone Nasal [place] [Flonase 1 spray EA NOSTRIL BID PRN 06/08/24 06/08/24 Nasal [place]] Previous Rx's Medication Instructions Recorded Metoprolol Succinate (ER) [Toprol 25 mg PO DAILY #30 tab 11/26/23 XL] Allergies Allergy/AdvReac Type Severity Reaction Status Date / Time adhesive tape Allergy Rash/Hives Verified 06/08/24 15:32 ibuprofen [From Motrin] Allergy Swelling & Verified 06/08/24 15:32 itching on entire body levofloxacin [From Levaquin] Allergy Rash/Hives Verified 06/08/24 15:32 Review of Systems ROS Other: All systems not noted in ROS Statement are negative. <Cj Owens - Last Filed: 06/08/24 11:16> ROS Other: All systems not noted in ROS Statement are negative. <Anabella Mandujano - Last Filed: 06/08/24 16:03> ROS Statement: Those systems with pertinent positive or pertinent negative responses have been documented in the HPI. Past Medical History Past Medical History: Atrial Fibrillation, Cancer, Deep Vein Thrombosis (DVT), Hearing Disorder / Deafness, Hyperlipidemia, Hypertension, Myocardial Infarction (MO), Osteoarthritis (OA), Syncope, Thyroid Disorder Additional Past Medical History / Comment(s): hiatal hernia, hx basal skin cancer, hx diverticulitis, rt ear deaf . PIERSON left ear. hx of syncope. Flu A 5 weeks ago. Breast cancer >5 yrs ago. no chemo or radiation. blood clot to left ankle. growth to rt nostril. Last Myocardial Infarction Date:: 04/2012 History of Any Multi-Drug Resistant Organisms: None Reported Past Surgical History: AICD, Bowel Resection, Breast Surgery, Cardiac Ablation, Cholecystectomy, Heart Catheterization, Hysterectomy, Joint Replacement, Orthopedic Surgery, Pacemaker, Tonsillectomy Additional Past Surgical History / Comment(s): bilateral breast reduction 1995, arthroscopic rt knee, partial hysterectomy (bilateral ovaries retained), pacemaker battery replaced 2022, right breast lumpectomy, TRK 05/07/22 Past Anesthesia/Blood Transfusion Reactions: No Reported Reaction Additional Past Anesthesia/Blood Transfusion Reaction / Comment(s): No blood transfusions to date (pt had an autolygous transfusion when undergoing bilateral breast reduction). Type of Cardiac Device: Permanent Pacemaker, AICD Device Placement Date:: 2006 (info from pt's med card medtronic-[id number],model#[id number]) Past Psychological History: No Psychological Hx Reported Smoking Status: Former smoker Past Alcohol Use History: None Reported Past Drug Use History: None Reported - Past Family History Mother Family Medical History: Cancer Additional Family Medical History / Comment(s): Colon cancer dx at age 74, at age 84. Sister(s) Family Medical History: Cancer, CVA/TIA, Deep Vein Thrombosis (DVT) Additional Family Medical History / Comment(s): pt has 2 sisters: sister #1: at age 79 from stroke complications (also had a hx of blood clots). sister #2: had a cancerous tumor on aortic valve. Son(s) Family Medical History: Deep Vein Thrombosis (DVT) Brother(s) Family Medical History: CVA/TIA, Deep Vein Thrombosis (DVT) Additional Family Medical History / Comment(s): She has 1 brother with a history of stroke and blood clot. Father Family Medical History: Congestive Heart Failure (CHF) <Cj Owens - Last Filed: 06/08/24 11:16> General Exam Limitations: no limitations <Cj Owens - Last Filed: 06/08/24 11:16> - General Exam Comments Initial Comments: Visual Physical Exam Vital signs reviewed General: Well-appearing, nontoxic. Patient appears tearful Head: Normocephalic, atraumatic Eyes: PERRLA, EOMI ENT: Airway patent Chest: Nonlabored breathing Skin: No visual rash, normal skin tone Neuro: Alert and oriented 3. [place] stroke negative, negative aphasia, dysarthria Musculoskeletal: No gross abnormalities (Cj Owens) Course Vital Signs 06/08/24 06/08/24 11:04 11:59 Temperature 97.7 F Pulse Rate 77 64 Respiratory 18 18 Rate Blood Pressure 101/67 107/73 O2 Sat by Pulse 97 98 Oximetry Medical Decision Making <Cj Owens - Last Filed: 06/08/24 11:16> - Lab Data Result diagrams: 06/08/24 12:10 06/08/24 12:10 <Anabella Mandujano - Last Filed: 06/08/24 16:03> - Medical Decision Making I completed the quick note portion of this chart signed COLETTE Franklin (Cj Owens) Was pt. sent in by a medical professional or institution ([facility], [facility], urgent care, hospital, or penitentiary...) When possible be specific @ -[No] Did you speak to anyone other than the patient for history (EMS, parent, family, police, friend...)? What history was obtained from this source @ -[No] Did you review nursing and triage notes (agree or disagree)? Why? @ -[I reviewed and agree with nursing and triage notes] Were old charts reviewed (outside hosp., previous admission, EMS record, old EKG, old radiological studies, urgent care reports/EKG's, penitentiary records)? Report findings @ -[No old charts were reviewed] Differential Diagnosis (chest pain, altered mental status, abdominal pain women, abdominal pain men, vaginal bleeding, weakness, fever, dyspnea, syncope, headache, dizziness, GI bleed, back pain, seizure, CVA, palpatations, mental health, musculoskeletal)? @ -[not applicable] EKG interpreted by me (3pts min.). @ -Yes and demonstrates paced rhythm with a rate of 69. QRS 180. QTc of 523. No acute ST segment elevations or depressions X-rays interpreted by me (1pt min.). @ -[None done] CT interpreted by me (1pt min.). @ -[None done] U/S interpreted by me (1pt. min.). @ -[None done] What testing was considered but not performed or refused? (CT, X-rays, U/S, labs)? Why? @ -[None] What meds were considered but not given or refused? Why? @ -[None] Did you discuss the management of the patient with other professionals (professionals i.e. [facility], [employer]OWS CONSULTANT, lab, RT, psych nurse, social organization professor, off premise service representative, teacher, intelligence officer, case preparer and liner)? Give summary @ -[No] Was smoking cessation discussed for >3mins.? @ -[No] Was critical care preformed (if so, how long)? @ -[No] Were there social determinants of health that impacted care today? How? (Homelessness, low income, unemployed, alcoholism, drug addiction, transportation, low edu. Level, literacy, decrease access to med. care, fdc, rehab)? @ -[No] Was there de-escalation of care discussed even if they declined (Discuss DNR or withdrawal of care, Hospice)? DNR status @ -[No] What co-morbidities impacted this encounter? (DM, HTN, Smoking, COPD, CAD, Cancer, CVA, ARF, Chemo, Hep., AIDS, mental health diagnosis, sleep apnea, morbid obesity)? @ -[None] Was patient admitted / discharged? Hospital course, mention meds given and route, prescriptions, significant lab abnormalities, going to OR and other pe rtinent info. @ -[hospital course] Undiagnosed new problem with uncertain prognosis? @ -[No] Drug Therapy requiring intensive monitoring for toxicity (Heparin, Nitro, Insulin, Cardizem)? @ -[No] Were any procedures done? @ -[No] Diagnosis/symptom? @ -[default] Acute, or Chronic, or Acute on Chronic? @ -[default] Uncomplicated (without systemic symptoms) or Complicated (systemic symptoms)? @ -[default] Side effects of treatment? @ -[No] Exacerbation, Progression, or Severe Exacerbation? @ -[No] Poses a threat to life or bodily function? How? (Chest pain, [place], MO, pneumonia, PE, COPD, DKA, ARF, appy, cholecystitis, CVA, Diverticulitis, Homicidal, Suicidal, threat to staff... and all critical care pts) @ -[No] (Anabella Mandujano) - Lab Data Lab Results 06/08/24 06/08/24 06/08/24 Range/Units 12:10 12:10 12:10 WBC 9.3 (3.8-10.6) k/uL RBC 3.66 L (3.80-5.40) m/uL Hgb 11.1 L (11.4-16.0) gm/dL Hct 34.3 (34.0-46.0) % MCV 93.7 (80.0-100.0) fL MCH 30.3 (25.0-35.0) pg MCHC 32.3 (31.0-37.0) g/dL RDW 15.6 H (11.5-15.5) % Plt Count 234 (150-450) k/uL MPV 8.3 Neutrophils % 71 % Lymphocytes % 19 % Monocytes % 7 % Eosinophils % 2 % Basophils % 0 % Neutrophils # 6.6 (1.3-7.7) k/uL Lymphocytes # 1.8 (1.0-4.8) k/uL Monocytes # 0.6 (0-1.0) k/uL Eosinophils # 0.2 (0-0.7) k/uL Basophils # 0.0 (0-0.2) k/uL Hypochromasia Slight PT 14.0 H (10.0-12.5) sec INR 1.3 H (<1.2) D-Dimer 0.64 H (<0.60) mg/L FEU Sodium 139 (137-145) mmol/L Potassium 4.5 (3.5-5.1) mmol/L Chloride 103 (98-107) mmol/L Carbon Dioxide 26 (22-30) mmol/L Anion Gap 10 mmol/L BUN 28 H (7-17) mg/dL Creatinine 1.11 H (0.52-1.04) mg/dL Est GFR (CKD-EPI)AfAm 54 (>60 ml/min/1.73 sqM) Est GFR (CKD-EPI)NonAf 47 (>60 ml/min/1.73 sqM) Glucose 96 (74-99) mg/dL Plasma Lactic Acid Chris (0.7-2.0) mmol/L Calcium 9.4 (8.4-10.2) mg/dL Total Bilirubin 1.2 (0.2-1.3) mg/dL AST 36 (14-36) U/L ALT 16 (4-34) U/L Alkaline Phosphatase 78 (38-126) U/L Troponin I (0.000-0.034) ng/mL Total Protein 7.7 (6.3-8.2) g/dL Albumin 4.4 (3.5-5.0) g/dL Urine Color Urine Appearance (Clear) Urine pH (5.0-8.0) Ur Specific [place] (1.001-1.035) Urine Protein (Negative) Urine Glucose (UA) (Negative) Urine Ketones (Negative) Urine Blood (Negative) Urine Nitrite (Negative) Urine Bilirubin (Negative) Urine Urobilinogen (<2.0) mg/dL Ur Leukocyte Esterase (Negative) 12/10/24 12/10/24 12/10/24 Range/Units 12:10 12:10 12:15 WBC (3.8-10.6) k/uL RBC (3.80-5.40) m/uL Hgb (11.4-16.0) gm/dL Hct (34.0-46.0) % MCV (80.0-100.0) fL MCH (25.0-35.0) pg MCHC (31.0-37.0) g/dL RDW (11.5-15.5) % Plt Count (150-450) k/uL MPV Neutrophils % % Lymphocytes % % Monocytes % % Eosinophils % % Basophils % % Neutrophils # (1.3-7.7) k/uL Lymphocytes # (1.0-4.8) k/uL Monocytes # (0-1.0) k/uL Eosinophils # (0-0.7) k/uL Basophils # (0-0.2) k/uL Hypochromasia PT (10.0-12.5) sec INR (<1.2) D-Dimer (<0.60) mg/L FEU Sodium (137-145) mmol/L Potassium (3.5-5.1) mmol/L Chloride (98-107) mmol/L Carbon Dioxide (22-30) mmol/L Anion Gap mmol/L BUN (7-17) mg/dL Creatinine (0.52-1.04) mg/dL Est GFR (CKD-EPI)AfAm (>60 ml/min/1.73 sqM) Est GFR (CKD-EPI)NonAf (>60 ml/min/1.73 sqM) Glucose (74-99) mg/dL Plasma Lactic Acid Chris 1.2 (0.7-2.0) mmol/L Calcium (8.4-10.2) mg/dL Total Bilirubin (0.2-1.3) mg/dL AST (14-36) U/L ALT (4-34) U/L Alkaline Phosphatase (38-126) U/L Troponin I 0.021 (0.000-0.034) ng/mL Total Protein (6.3-8.2) g/dL Albumin (3.5-5.0) g/dL Urine Color Colorless Urine Appearance Clear (Clear) Urine pH 6.5 (5.0-8.0) Ur Specific [place] 1.006 (1.001-1.035) Urine Protein Negative (Negative) Urine Glucose (UA) Negative (Negative) Urine Ketones Negative (Negative) Urine Blood Negative (Negative) Urine Nitrite Negative (Negative) Urine Bilirubin Negative (Negative) Urine Urobilinogen <2.0 (<2.0) mg/dL Ur Leukocyte Esterase Negative (Negative) Disposition <Cj Owens - Last Filed: 06/08/24 11:16> Is patient prescribed a controlled substance at d/c from ED?: No Time of Disposition: 15:41 <Anabella Mandujano - Last Filed: 06/08/24 16:03> Clinical Impression: Dizziness Disposition: HOME SELF-CARE Condition: Stable Instructions (If sedation given, give patient instructions): Dizziness (ED) Additional Instructions: Follow-up with your primary care doctor within the next 2 to 4 days for reevaluation of your symptoms. Return to the emergency department for any new or worsening symptoms. take the meclizine as needed to see if it assists your symptoms Referrals: Kostas Kunz MD [Primary Care Provider] - 1-2 days
--- NOTE | 2024-06-08 12:02 | XR ---
EXAMINATION TYPE: XR chest 2V DATE OF EXAM: 06/08/2024 11:26 AM COMPARISON: Chest radiographs from 11/24/2023. CLINICAL INDICATION: Female, 83 years old with history of Dyspnea, dizziness; TECHNIQUE: XR chest 2V Frontal and lateral views of the chest. FINDINGS: Lungs/Pleura: There is no evidence of pleural effusion, focal consolidation, or pneumothorax. Pulmonary vascularity: Unremarkable. Heart/mediastinum: Cardiomediastinal silhouette is enlarged and stable. Atherosclerotic calcificatio ns are seen in the aorta. 4 lead cardiac conduction device overlying the left hemithorax with lead ti ps projecting over the right ventricle, right atrium and coronary sinus. Musculoskeletal: No acute osseous pathology. IMPRESSION: No acute cardiopulmonary disease/process. [facility], , 06/08/2024 12:00 PM
[2024-06-08 12:25] LABS: Basophils % (A) 0 %; Eosinophils # (A) 0.2 k/uL (0-0.7); Eosinophils % (A) 2 %; HCT 34.3 % (34.0-46.0); HGB 11.1 gm/dL (11.4-16.0); Hypochromasia Slight; Lymphocytes # (A) 1.8 k/uL (1.0-4.8); Lymphocytes % (A) 19 %; MCH 30.3 pg (25.0-35.0); MCHC 32.3 g/dL (31.0-37.0); MCV 93.7 fL (80.0-100.0); Mean Platelet Volume 8.3; Monocytes # (A) 0.6 k/uL (0-1.0); Monocytes % (A) 7 %; Neutrophils # (A) 6.6 k/uL (1.3-7.7); Neutrophils % (A) 71 %; Platelet Count 234 k/uL (150-450); RBC 3.66 m/uL (3.80-5.40); RDW 15.6 % (11.5-15.5); WBC 9.3 k/uL (3.8-10.6)
[2024-06-08 12:37] LABS: ALT 16 U/L (4-34); African American GFR (CKD) 54 (>60 ml/min/1.73 sqM); Albumin 4.4 g/dL (3.5-5.0); Anion Gap 10 mmol/L; Blood Urea Nitrogen 28 mg/dL (7-17); Calcium 9.4 mg/dL (8.4-10.2); Carbon Dioxide 26 mmol/L (22-30); Chloride 103 mmol/L (98-107); Glucose 96 mg/dL (74-99); Non-African American GFR(CKD) 47 (>60 ml/min/1.73 sqM); Sodium 139 mmol/L (137-145); Total Bilirubin 1.2 mg/dL (0.2-1.3); Total Protein 7.7 g/dL (6.3-8.2)
[2024-06-08 12:41] LABS: Appearance,Urine Clear (Clear); Bilirubin,Urine Negative (Negative); Blood,Urine Negative (Negative); Color,Urine Colorless; Glucose,Urine (UA) Negative (Negative); Ketones,Urine Negative (Negative); Leukocyte Esterase,Urine Negative (Negative); Nitrite,Urine Negative (Negative); PH, Urine 6.5 (5.0-8.0); Protein,Urine Negative (Negative); Specific Gravity,Urine 1.006 (1.001-1.035); Urobilinogen,Urine <2.0 mg/dL (<2.0)
[2024-06-08 12:42] LABS: AST 36 U/L (14-36); Potassium 4.5 mmol/L (3.5-5.1)
[2024-06-08 12:43] LABS: Alkaline Phosphatase 78 U/L (38-126)
[2024-06-08 12:44] LABS: INR 1.3 (<1.2)
--- NOTE | 2024-06-08 14:16 | CT ---
EXAMINATION TYPE: CT brain wo con CT DLP: 1146.6 mGycm, Automated exposure control for dose reduction was used. DATE OF EXAM: 06/08/2024 2:11 PM COMPARISON: Prior CT Brain from 07/22/2023 . CLINICAL INDICATION:Female, 83 years old with history of Constant dizziness, Constant dizziness TECHNIQUE: Brain: Multiple axial CT images of the brain were obtained without IV contrast. . Coronal and sagitta l reformats reviewed. FINDINGS: Brain: Extra-axial spaces: No abnormal extra-axial fluid collections. Ventricular system: Within normal limits Cerebral parenchyma: Cerebral atrophy. No acute intraparenchymal hemorrhage or mass effect. The pickens -white junction is well differentiated. Scattered and confluent hypoattenuating areas are seen within the periventricular and subcortical white matter. Cerebellum: Unremarkable. Mass effect: No evidence of midline shift. Intracranial vasculature: Atherosclerotic calcifications of the intracranial vessels. Soft tissues: Normal. Calvarium/osseous structures: No depressed skull fracture. Paranasal sinuses and mastoid air cells: Minimal mucosal thickening of the right maxillary sinus. Visualized orbits: Bilateral aphakia IMPRESSION: 1. No acute intracranial process. 2. Moderate nonspecific white matter changes redemonstrated, likely secondary to chronic small vessel ischemic disease. [facility], , 06/08/2024 2:14 PM
--- NOTE | 2024-06-08 14:35 | CT ---
EXAMINATION TYPE: CT angio head neck CT DLP: 432.2 mGycm, Automated exposure control for dose reduction was used. DATE OF EXAM: 06/08/2024 2:21 PM COMPARISON: . CLINICAL INDICATION:Female, 83 years old with history of Constant dizziness; PHH, Constant dizziness TECHNIQUE: Axially acquired helical CT angiogram of the head and neck was obtained with contrast util izing 75 cc of Isovue-370 administered intravenously. Axial images are supplemented with 3D reconstru ctions which were post-processed at an independent workstation. NASCET criteria used. FINDINGS: CTA HEAD: No evidence of acute intracranial hemorrhage, mass effect, or midline shift. The ventricles, sulci, a nd cisterns are unremarkable. The visualized portions of the internal carotid arteries, middle cerebral arteries, anterior cerebral arteries, and posterior cerebral arteries are patent. origin of the bilateral FLYING SQUAD WORKER. The basilar and vertebral arteries are patent. CTA NECK: Right Carotid System: The common carotid artery and external carotid artery are patent. Minimal calcified plaque at the car otid bifurcation. The carotid bifurcation demonstrates no evidence of hemodynamically significant dorita nosis. The remaining portions of the internal carotid artery demonstrate normal size without signific ant narrowing. Left Carotid System: The common carotid artery and external carotid artery are patent. Mild calcified plaque at the caroti d bifurcation. The carotid bifurcation demonstrates no evidence of hemodynamically significant stenos is. The remaining portions of the internal carotid artery demonstrate normal size without significant narrowing. Vertebral arteries are patent without evidence hemodynamically significant stenosis. Dominant left ve rtebral artery with diminutive right vertebral artery. There is a three-vessel aortic arch. The origins of the great vessels are patent. No evidence of hemo dynamically significant stenosis. Left chest wall cardiac pacemaker device identified. Multilevel deg enerative disc disease of the midcervical spine. IMPRESSION: 1. No evidence of dissection of the cervical internal carotid arteries or vertebral arteries or any e vidence of significant stenosis at the carotid bifurcations. 2. No evidence of high-grade stenosis or intracranial aneurysm. [facility], , 06/08/2024 2:33 PM
[2024-06-08] MEDS: MECLIZINE 12.5 MG TAB PO STA (15:05)
[2024-06-08 16:28] VITALS: BP 97/61; PULSE 57; RESP 17; TEMP 97.6
== END 2024-06-08 16:45 | disposition home or self-care (01) ==
LOC: EC 10:57
DX: R42 Dizziness and giddiness (principal); Z88.1 Allergy status to other antibiotic agents; Z88.6 Allergy status to analgesic agent; Z91.09 Other allergy status, other than to drugs and biological substances; Z87.891 Personal history of nicotine dependence
CPT/HCPCS: 36415; 93005; 85379; 80053; 83605; 84484; 85025; 85610; 81003; 71046; 70496; 70450; 70498; 99285; Q9967

== ENCOUNTER 2024-08-26 08:53 | Inpatient (IN) | payer MEDICARE ==
[2024-08-26 10:09] LABS: Basophils % (A) 0 %; Eosinophils # (A) 0.1 k/uL (0-0.7); Eosinophils % (A) 1 %; HCT 30.8 % (34.0-46.0); HGB 9.3 gm/dL (11.4-16.0); Hypochromasia Marked; Lymphocytes # (A) 1.7 k/uL (1.0-4.8); Lymphocytes % (A) 19 %; MCH 27.5 pg (25.0-35.0); MCHC 30.2 g/dL (31.0-37.0); Mean Platelet Volume 8.3; Monocytes # (A) 0.6 k/uL (0-1.0); Monocytes % (A) 7 %; Neutrophils # (A) 6.5 k/uL (1.3-7.7); Neutrophils % (A) 72 %; Platelet Count 244 k/uL (150-450); RBC 3.39 m/uL (3.80-5.40); WBC 9.1 k/uL (3.8-10.6)
--- NOTE | 2024-08-26 10:13 | ED ---
SOB HPI - General Source: patient, family, RN notes reviewed Mode of arrival: wheelchair Limitations: no limitations <Allison Barraza - Last Filed: 08/26/24 10:12> <Anabella Mandujano - Last Filed: 08/29/24 17:56> - General Chief Complaint: Shortness of Breath Stated Complaint: left side pain, no bowel movement, cough Time Seen by Provider: 08/26/24 10:12 - History of Present Illness Initial Comments: Quick note: 83-year-old female presenting to the ER for evaluation of bilateral lower extremity edema and constipation. Patient has a history of CHF and has a pacemaker in place. Swelling to bilateral lower extremities for the past 1-1/2 weeks. Patient also endorsing a dry cough. Patient also reports she has not had a bowel movement in approximately 2 weeks. Admits to nausea. (Allison Barraza) 83-year-old female presents emergency department with lower extremity edema, shortness of breath. Shortness of breath is worse when the patient lays flat. She does have a history of CHF and takes diuretics. Has been taking them as directed. Endorses a dry cough. She also admits that it has been difficult to have a bowel movement and she is having significant left-sided abdominal pain. She did take a stool softener without relief last night. She admits to nausea. No vomiting. No fevers. No sick contacts. No history of DVT or PE. No other alleviating, precipitating roughing factors (Anabella Mandujano) - Related Data Home Medications Medication Instructions Recorded Confirmed Furosemide [Lasix] 40 mg PO BID@0800,1500 11/30/13 08/26/24 Levothyroxine Sodium [Synthroid] 75 mcg PO DAILY 10/20/17 08/26/24 Sacubitril/Valsartan [Entresto 24 1 tab PO BID 01/19/18 08/26/24 mg-26 mg Tablet] allopurinoL [Zyloprim] 100 mg PO HS 01/27/20 08/26/24 Atorvastatin [Lipitor] 20 mg PO HS 06/09/20 08/26/24 Rivaroxaban [Xarelto] 15 mg PO HS 06/14/21 08/26/24 Potassium Gluconate [Potassium 99 mg PO HS 12/26/21 02/27/25 Gluconate ER] Ubidecarenone [Coenzyme Q10] 200 mg PO HS 12/27/22 08/26/24 Magnesium 250 mg PO HS 11/21/23 08/26/24 Spironolactone [Aldactone] 25 mg PO DAILY 11/21/23 08/26/24 Metoprolol Succinate (ER) [Toprol 25 mg PO BID 08/26/24 08/26/24 Xl] Vitamin D3(Unknown Dose) 1 tab PO BID 08/26/24 08/26/24 Allergies Allergy/AdvReac Type Severity Reaction Status Date / Time adhesive tape Allergy Rash/Hives Verified 08/26/24 09:15 ibuprofen [From Motrin] Allergy Swelling & Verified 08/26/24 09:15 itching on entire body levofloxacin [From Levaquin] Allergy Rash/Hives Verified 08/26/24 09:15 Review of Systems ROS Other: All systems not noted in ROS Statement are negative. <Allison Barraza - Last Filed: 08/26/24 10:12> ROS Other: All systems not noted in ROS Statement are negative. <Anabella Mandujano - Last Filed: 08/29/24 17:56> ROS Statement: Those systems with pertinent positive or pertinent negative responses have been documented in the HPI. Past Medical History Past Medical History: Atrial Fibrillation, Cancer, Deep Vein Thrombosis (DVT), Hearing Disorder / Deafness, Hyperlipidemia, Hypertension, Myocardial Infarction (OH), Osteoarthritis (OA), Syncope, Thyroid Disorder Additional Past Medical History / Comment(s): hiatal hernia, hx basal skin cancer, hx diverticulitis, rt ear deaf . PIERSON left ear. hx of syncope. Flu A 5 weeks ago. Breast cancer >5 yrs ago. no chemo or radiation. blood clot to left ankle. growth to rt nostril. Last Myocardial Infarction Date:: 04/2012 History of Any Multi-Drug Resistant Organisms: None Reported Past Surgical History: AICD, Bowel Resection, Breast Surgery, Cardiac Ablation, Cholecystectomy, Heart Catheterization, Hysterectomy, Joint Replacement, Orthopedic Surgery, Pacemaker, Tonsillectomy Additional Past Surgical History / Comment(s): bilateral breast reduction 1995, arthroscopic rt knee, partial hysterectomy (bilateral ovaries retained), pacemaker battery replaced 2022, right breast lumpectomy, TRK 05/07/22 Past Anesthesia/Blood Transfusion Reactions: No Reported Reaction Additional Past Anesthesia/Blood Transfusion Reaction / Comment(s): No blood transfusions to date (pt had an autolygous transfusion when undergoing bilateral breast reduction). Type of Cardiac Device: Permanent Pacemaker, AICD Device Placement Date:: 2006 (info from pt's med card [employer]-[id number],model#[id number]) Past Psychological History: No Psychological Hx Reported Smoking Status: Former smoker Past Alcohol Use History: None Reported Past Drug Use History: None Reported - Past Family History Mother Family Medical History: Cancer Additional Family Medical History / Comment(s): Colon cancer dx at age 74, at age 84. Sister(s) Family Medical History: Cancer, CVA/TIA, Deep Vein Thrombosis (DVT) Additional Family Medical History / Comment(s): pt has 2 sisters: sister #1: at age 79 from stroke complications (also had a hx of blood clots). sister #2: had a cancerous tumor on aortic valve. Son(s) Family Medical History: Deep Vein Thrombosis (DVT) Brother(s) Family Medical History: CVA/TIA, Deep Vein Thrombosis (DVT) Additional Family Medical History / Comment(s): She has 1 brother with a history of stroke and blood clot. Father Family Medical History: Congestive Heart Failure (CHF) <Allison Barraza - Last Filed: 08/26/24 10:12> General Exam Limitations: no limitations <Allison Barraza - Last Filed: 08/26/24 10:12> General appearance: alert, in no apparent distress Head exam: Present: atraumatic, normocephalic, normal inspection Eye exam: Present: normal appearance, PERRL, EOMI. Absent: scleral icterus, conjunctival injection, periorbital swelling ENT exam: Present: normal exam, mucous membranes moist Neck exam: Present: normal inspection. Absent: tenderness, meningismus, lymphadenopathy Respiratory exam: Present: rales. Absent: respiratory distress, wheezes, rhonchi, stridor Cardiovascular Exam: Present: regular rate, normal rhythm, normal heart sounds. Absent: systolic murmur, diastolic murmur, rubs, gallop, clicks GI/Abdominal exam: Present: soft, normal bowel sounds. Absent: distended, tenderness, guarding, rebound, rigid Extremities exam: Present: full ROM, normal capillary refill, pedal edema. Absent: tenderness, joint swelling, calf tenderness Back exam: Present: normal inspection Neurological exam: Present: alert, oriented X3, CN II-XII intact Psychiatric exam: Present: normal affect, normal mood Skin exam: Present: warm, dry, intact, normal color. Absent: rash <Anabella Mandujano - Last Filed: 08/29/24 17:56> - General Exam Comments Initial Comments: Visual Physical Exam Vital signs reviewed General: Well-appearing, nontoxic, no acute distress. Head: Normocephalic, atraumatic Eyes: PERRLA, EOMI ENT: Airway patent Chest: Nonlabored breathing Skin: No visual rash, normal skin tone Neuro: Alert and oriented 3 Musculoskeletal: No gross abnormalities (Allison Barraza) Course Vital Signs 08/26/24 08/26/24 08/26/24 09:12 11:03 13:16 Temperature 98.3 F Pulse Rate 67 60 Respiratory 22 20 20 Rate Blood Pressure 103/73 106/73 O2 Sat by Pulse 98 96 Oximetry 08/26/24 08/26/24 08/26/24 19:44 20:13 20:24 Temperature Pulse Rate 63 85 87 Respiratory 20 Rate Blood Pressure 116/71 O2 Sat by Pulse 94 L Oximetry 08/27/24 08/27/24 00:00 04:34 Temperature Pulse Rate 62 65 Respiratory 18 18 Rate Blood Pressure 111/76 108/62 O2 Sat by Pulse 96 95 Oximetry Medical Decision Making - Lab Data Result diagrams: 08/26/24 09:38 <Allison Barraza - Last Filed: 08/26/24 10:12> - Lab Data Result diagrams: 08/29/24 07:50 08/29/24 07:58 <Anabella Mandujano - Last Filed: 08/29/24 17:56> - Medical Decision Making I performed the quick note portion of this chart. Electronically signed by Allison Barraza PA-C (Allison Barraza) Was pt. sent in by a medical professional or institution ([facility]onzo, MAIL DISTRIBUTION CLERK, urgent care, hospital, or shelter...) When possible be specific @ -No Did you speak to anyone other than the patient for history (EMS, parent, family, police, friend...)? What history was obtained from this source @ -Spoke with the patient's daughter for history Did you review nursing and triage notes (agree or disagree)? Why? @ -I reviewed and agree with nursing and triage notes Were old charts reviewed (outside hosp., previous admission, EMS record, old EKG, old radiological studies, urgent care reports/EKG's, shelter records)? Report findings @ -No old charts were reviewed Differential Diagnosis (chest pain, altered mental status, abdominal pain women, abdominal pain men, vaginal bleeding, weakness, fever, dyspnea, syncope, headache, dizziness, GI bleed, back pain, seizure, CVA, palpatations, mental health, musculoskeletal)? @ -Differential Dyspnea: Coronary syndrome, arrhythmia, tamponade, asthma, COPD, pulmonary embolism, pneumonia, pneumothorax, pulmonary effusion, anaphylaxis, diabetic ketoacidosis, flailed chest, pulmonary contusion, diaphragmatic rupture, anemia, neuromuscular, this is not meant to be an all-inclusive list. EKG interpreted by me (3pts min.). @ -Yes and demonstrates electronic ventricular pacemaker. Rate of 64. QRS 193. QTc of 524. Pacemaker captures appropriately. No acute ST segment elevation or depression X-rays interpreted by me (1pt min.). @ -Yes which demonstrates pulmonary vascular congestion CT interpreted by me (1pt min.). @ -None done U/S interpreted by me (1pt. min.). @ -None done What testing was considered but not performed or refused? (CT, X-rays, U/S, labs)? Why? @ -None What meds were considered but not given or refused? Why? @ -None Did you discuss the management of the patient with other professionals (professionals i.e. , PA, MAIL DISTRIBUTION CLERK, lab, RT, psych nurse, social worker clinical, timber mill worker, teacher, booking police officer, director of casework)? Give summary @ -Spoke with Dr. Polo for the admission Was smoking cessation discussed for >3mins.? @ -No Was critical care preformed (if so, how long)? @ -No Were there social determinants of health that impacted care today? How? (Homeles sness, low income, unemployed, alcoholism, drug addiction, transportation, low edu. Level, literacy, decrease access to med. care, care home, rehab)? @ -No Was there de-escalation of care discussed even if they declined (Discuss DNR or withdrawal of care, Hospice)? DNR status @ -No What co-morbidities impacted this encounter? (DM, HTN, Smoking, COPD, CAD, Cancer, CVA, ARF, Chemo, Hep., AIDS, mental health diagnosis, sleep apnea, morbid obesity)? @ -Congestive heart failure Was patient admitted / discharged? Hospital course, mention meds given and route, prescriptions, significant lab abnormalities, going to OR and other pertinent info. @ -Upon arrival patient seen and evaluated in hallway 26. Thorough history and physical exam was performed. Patient has a twelve-lead EKG obtained. Labora tory studies are conducted after IV is established. Laboratory studies do demonstrate elevated BNP. Chest x-ray demonstrates signs of volume overload. Patient was given an intravenous dose of Lasix. She is having issues with constipation therefore I did order several stool softeners. I did recommend admission for which patient was agreeable. Spoke with Dr. Kunz for the admission Undiagnosed new problem with uncertain prognosis? @ -No Drug Therapy requiring intensive monitoring for toxicity (Heparin, Nitro, Insulin, Cardizem)? @ -No Were any procedures done? @ -No Diagnosis/symptom? @ -Acute respiratory insufficiency, acute exacerbation of CHF, acute constipation Acute, or Chronic, or Acute on Chronic? @ -Acute on chronic Uncomplicated (without systemic symptoms) or Complicated (systemic symptoms)? @ -Complicated Side effects of treatment? @ -No Exacerbation, Progression, or Severe Exacerbation? @ -Yes Poses a threat to life or bodily function? How? (Chest pain, [place], [place], pneumonia, PE, COPD, DKA, ARF, appy, cholecystitis, CVA, Diverticulitis, Homicidal, Suicidal, threat to staff... and all critical care pts) @ -No (Anabella Mandujano) - Lab Data Lab Results 08/26/24 08/26/24 08/26/24 Range/Units 09:38 09:38 09:38 WBC 9.1 (3.8-10.6) k/uL RBC 3.39 L (3.80-5.40) m/uL Hgb 9.3 L (11.4-16.0) gm/dL Hct 30.8 L (34.0-46.0) % MCV 91.0 (80.0-100.0) fL MCH 27.5 (25.0-35.0) pg MCHC 30.2 L (31.0-37.0) g/dL RDW 14.0 (11.5-15.5) % Plt Count 244 (150-450) k/uL MPV 8.3 Neutrophils % 72 % Lymphocytes % 19 % Monocytes % 7 % Eosinophils % 1 % Basophils % 0 % Neutrophils # 6.5 (1.3-7.7) k/uL Lymphocytes # 1.7 (1.0-4.8) k/uL Monocytes # 0.6 (0-1.0) k/uL Eosinophils # 0.1 (0-0.7) k/uL Basophils # 0.0 (0-0.2) k/uL Hypochromasia Marked PT 15.5 H (10.0-12.5) sec INR 1.5 H (<1.2) APTT 28.5 (22.0-30.0) sec Sodium 141 (137-145) mmol/L Potassium 3.2 L (3.5-5.1) mmol/L Chloride 100 (98-107) mmol/L Carbon Dioxide 31 H (22-30) mmol/L Anion Gap 10 mmol/L BUN 29 H (7-17) mg/dL Creatinine 1.20 H (0.52-1.04) mg/dL Est GFR (CKD-EPI)AfAm 49 (>60 ml/min/1.73 sqM) Est GFR (CKD-EPI)NonAf 43 (>60 ml/min/1.73 sqM) Glucose 94 (74-99) mg/dL Plasma Lactic Acid Chris (0.7-2.0) mmol/L Calcium 9.6 (8.4-10.2) mg/dL Magnesium 2.1 (1.6-2.3) mg/dL Total Bilirubin 1.2 (0.2-1.3) mg/dL AST 23 (14-36) U/L ALT 15 (4-34) U/L Alkaline Phosphatase 80 (38-126) U/L Troponin I (0.000-0.034) ng/mL NT-Pro-B Natriuret Pep 3160 pg/mL Total Protein 7.1 (6.3-8.2) g/dL Albumin 4.2 (3.5-5.0) g/dL Influenza Type A (PCR) (Not Detectd) Influenza Type B (PCR) (Not Detectd) RSV (PCR) (Not Detectd) SARS-CoV-2 (PCR) (Not Detectd) 08/26/24 08/26/24 08/26/24 Range/Units 09:38 09:38 09:38 WBC (3.8-10.6) k/uL RBC (3.80-5.40) m/uL Hgb (11.4-16.0) gm/dL Hct (34.0-46.0) % MCV (80.0-100.0) fL MCH (25.0-35.0) pg MCHC (31.0-37.0) g/dL RDW (11.5-15.5) % Plt Count (150-450) k/uL MPV Neutrophils % % Lymphocytes % % Monocytes % % Eosinophils % % Basophils % % Neutrophils # (1.3-7.7) k/uL Lymphocytes # (1.0-4.8) k/uL Monocytes # (0-1.0) k/uL Eosinophils # (0-0.7) k/uL Basophils # (0-0.2) k/uL Hypochromasia PT (10.0-12.5) sec INR (<1.2) APTT (22.0-30.0) sec Sodium (137-145) mmol/L Potassium (3.5-5.1) mmol/L Chloride (98-107) mmol/L Carbon Dioxide (22-30) mmol/L Anion Gap mmol/L BUN (7-17) mg/dL Creatinine (0.52-1.04) mg/dL Est GFR (CKD-EPI)AfAm (>60 ml/min/1.73 sqM) Est GFR (CKD-EPI)NonAf (>60 ml/min/1.73 sqM) Glucose (74-99) mg/dL Plasma Lactic Acid Chris 1.2 (0.7-2.0) mmol/L Calcium (8.4-10.2) mg/dL Magnesium (1.6-2.3) mg/dL Total Bilirubin (0.2-1.3) mg/dL AST (14-36) U/L ALT (4-34) U/L Alkaline Phosphatase (38-126) U/L Troponin I 0.019 (0.000-0.034) ng/mL NT-Pro-B Natriuret Pep pg/mL Total Protein (6.3-8.2) g/dL Albumin (3.5-5.0) g/dL Influenza Type A (PCR) Not Detected (Not Detectd) Influenza Type B (PCR) Not Detected (Not Detectd) RSV (PCR) Not Detected (Not Detectd) SARS-CoV-2 (PCR) Not Detected (Not Detectd) Disposition <Allison Barraza - Last Filed: 08/26/24 10:12> Is patient prescribed a controlled substance at d/c from ED?: No Time of Disposition: 12:05 Decision to Admit Reason: Admit from EC Decision Date: 08/26/24 Decision Time: 12:05 <Anabella Mandujano - Last Filed: 08/29/24 17:56> Clinical Impression: Acute respiratory insufficiency, Acute exacerbation of chronic heart failure, Constipation Disposition: ADMITTED IP TO THIS HOSP Condition: Stable
[2024-08-26 10:17] LABS: INR 1.5 (<1.2); Partial Thromboplastin Time 28.5 sec (22.0-30.0); Prothrombin Time 15.5 sec (10.0-12.5)
[2024-08-26 10:19] LABS: ALT 15 U/L (4-34); AST 23 U/L (14-36); African American GFR (CKD) 49 (>60 ml/min/1.73 sqM); Albumin 4.2 g/dL (3.5-5.0); Alkaline Phosphatase 80 U/L (38-126); Anion Gap 10 mmol/L; Blood Urea Nitrogen 29 mg/dL (7-17); Calcium 9.6 mg/dL (8.4-10.2); Carbon Dioxide 31 mmol/L (22-30); Chloride 100 mmol/L (98-107); Glucose 94 mg/dL (74-99); Magnesium 2.1 mg/dL (1.6-2.3); Non-African American GFR(CKD) 43 (>60 ml/min/1.73 sqM); Potassium 3.2 mmol/L (3.5-5.1); Sodium 141 mmol/L (137-145); Total Bilirubin 1.2 mg/dL (0.2-1.3); Total Protein 7.1 g/dL (6.3-8.2)
--- NOTE | 2024-08-26 10:23 | XR ---
EXAMINATION TYPE: XR chest 2V DATE OF EXAM: 08/26/2024 10:16 AM COMPARISON: Chest x-ray June 08, 2024 CLINICAL INDICATION: Female, 83 years old with history of difficulty breathing, TECHNIQUE: Frontal and lateral views of the chest are obtained. FINDINGS: There is persistent cardiomegaly with multilead pacemaker/defibrillator and mild vascular congestion. Small to tiny right pleural effusion redemonstrated. Cholecystectomy clips are redemonstr ated. The osseous structures are intact. IMPRESSION: Findings suggest CHF exacerbation. Correlate clinically. [facility], , 08/26/2024 10:20 AM
[2024-08-26 10:26] LABS: NT-Pro-B-Type Natriuretic Pept 3160 pg/mL
[2024-08-26 10:45] LABS: Influenza A Not Detected (Not Detectd); Influenza B Not Detected (Not Detectd); RSV Not Detected (Not Detectd)
[2024-08-26] MEDS ORDERED: MAGNESIUM HYDROXIDE 2,400 MG/30 ML CUP PO PRN (12:11)
[2024-08-26] MEDS ORDERED: NALOXONE 0.4 MG/ML 1 ML VIAL IV PRN (12:11)
[2024-08-26] MEDS: FUROSEMIDE 10 MG/ML 10 ML VIAL IV STA (12:26)
[2024-08-26] MEDS: IPRATROPIUM-ALBUTEROL 3 ML NEB INHALATION PRN (20:13)
[2024-08-26] MEDS: METOPROLOL SUCCINATE (ER) 50 MG TAB.ER.24H PO SCH (20:40)
[2024-08-26] MEDS: MAGNESIUM OXIDE 400 MG TAB PO SCH (20:41)
[2024-08-26] MEDS: allopurinoL 100 MG TAB PO SCH (20:41)
[2024-08-26] MEDS: SACUBITRIL/VALSARTAN 24 MG-26 MG TABLET PO SCH (20:41)
[2024-08-26] MEDS: ATORVASTATIN 20 MG TAB PO SCH (20:41)
[2024-08-26] MEDS: RIVAROXABAN 15 MG TAB PO SCH (20:41)
[2024-08-26] MEDS: SENNOSIDES-DOCUSATE SODIUM 1 EACH TAB PO SCH (20:42)
[2024-08-26] MEDS ORDERED: NON FORMULARY DRUG (Vitamin D3(Unknown Dose) 1 TAB) PO SCH (21:00)
[2024-08-26] MEDS ORDERED: NON FORMULARY DRUG (Potassium Gluconate [Potassium Gluconate Er] 99 MG Tablet) PO SCH (21:00)
[2024-08-26] MEDS ORDERED: NON FORMULARY DRUG (Ubidecarenone [Coenzyme Q10] 200 MG Capsule) PO SCH (21:00)
[2024-08-27] MEDS ORDERED: Potassium Replacement Protocol 1 EACH MISC MISCELLANE PRN (06:14)
[2024-08-27] MEDS: LEVOTHYROXINE 75 MCG TAB PO SCH (06:36)
[2024-08-27 08:39] LABS: Basophils # (A) 0.03 X 10*3/uL (0.00-0.10); Basophils % (A) 0.3 %; Eosinophils # (A) 0.13 X 10*3/uL (0.04-0.35); Eosinophils % (A) 1.3 %; HCT 27.9 % (37.2-46.3); HGB 8.3 g/dL (12.0-15.0); Lymphocytes # (A) 1.43 X 10*3/uL (0.90-5.00); Lymphocytes % (A) 14.7 %; MCH 27.3 pg (27.0-32.0); MCHC 29.7 g/dL (32.0-37.0); MCV 91.8 FL (80.0-97.0); Mean Platelet Volume 11.4 FL (9.5-12.2); Monocytes # (A) 0.91 X 10*3/uL (0.20-1.00); Monocytes % (A) 9.4 %; NRBC Per 100 WBC 0 X 10*3/uL (0.00-0.01); Neutrophils # (A) 7.21 X 10*3/uL (1.80-7.70); Neutrophils % (A) 74.1 %; Platelet Count 227 X 10*3/uL (140-440); RBC 3.04 X 10*6/uL (4.10-5.20); RDW 14.1 % (11.5-14.5); WBC 9.73 X 10*3/uL (4.50-10.00)
[2024-08-27 08:51] LABS: ALT 12 U/L (8-44); AST 18 U/L (13-35); Albumin 3.7 g/dL (3.8-4.9); Albumin/Globulin Ratio 1.48 Ratio (1.60-3.17); Alkaline Phosphatase 79 U/L (41-126); BUN/Creat Ratio 20.25 Ratio (12.00-20.00); Blood Urea Nitrogen 24.3 mg/dL (9.0-27.0); Calcium 9.2 mg/dL (8.7-10.3); Carbon Dioxide 29.9 mmol/L (21.6-31.8); Chloride 102 mmol/L (96-109); Globulin 2.5 g/dL (1.6-3.3); Glucose 93 mg/dL (70-110); Potassium 3.7 mmol/L (3.5-5.5); Sodium 143 mmol/L (135-145); Total Bilirubin 0.8 mg/dL (0.3-1.2); Total Protein 6.2 g/dL (6.2-8.2)
[2024-08-27] MEDS: FUROSEMIDE 10 MG/ML 4 ML VIAL IV SCH (08:56)
[2024-08-27] MEDS: SPIRONOLACTONE 25 MG TAB PO SCH (08:56)
--- NOTE | 2024-08-27 11:06 | P.CRDCN ---
History of Present Illness History of present illness: HISTORY OF PRESENT ILLNESS: This is a 83-year-old female with a past medical history significant for nonischemic cardiomyopathy, congestive heart failure, atrial fibrillation, AV kristen ablation, biventricular ICD, ventricular tachycardia, hyperlipidemia, and hypothyroidism. Patient follows in the office with Dr. Mireles. We have been asked to see the patient in consultation for congestive heart failure. Patient examined at the bedside. Patient presented to the hospital with a chief complaint of shortness of breath and increased lower extremity edema. She also reports swelling into her abdomen. She complains of a dry cough. She states her symptoms have been going on for approximately 1 week. She states that she has been compliant with all of her medications and also with a low-sodium diet. Patient was found to be in acute CHF and was started on IV Lasix. DIAGNOSTICS: - EKG reveals ventricular paced rhythm - Chest xray persistent cardiomegaly with multilead pacemaker/defibrillator and mild vascular congestion. Small to tiny right pleural effusion redemonstrated. Findings consistent with CHF exacerbation. - Laboratory data: WBC 9.73. Hemoglobin 8.3. Platelet count 227. Sodium 143. Potassium 3.7. BUN 24. Creatinine 1.2. Troponin negative x 3. proBNP 3160. - Current home cardiac medications include Lipitor 20 mg at night, Lasix 40 mg twice a day, metoprolol succinate 25 mg twice daily, Xarelto 15 mg at night, Entresto 24 to 26 mg twice a day, Aldactone 25 mg daily. - Most recent echocardiogram obtained in October 2023 revealed ejection fraction 20 to 25%, hypokinetic basal segments, moderate MR, trace aortic regurgitation, mild tricuspid regurgitation - Cardiac catheterization history: April 2012 revealing ejection fraction 30%. 50% mid LAD. 50% proximal circumflex, 40% RCA stenosis which is chronic and stable. Mild progression of disease in the LAD and circumflex. REVIEW OF SYSTEMS: At the time of my exam: CONSTITUTIONAL: Denies fever or chills. HEENT: Denies blurred vision, vision changes, or eye pain. Denies hemoptysis CARDIOVASCULAR: Denies chest pain. Denies orthopnea. Denies PND. Denies palpitations RESPIRATORY: Reports shortness of breath. GASTROINTESTINAL: Denies abdominal pain. Denies nausea or vomiting. HEMATOLOGIC: Denies bleeding disorders. GENITOURINARY: Denies any blood in urine. SKIN: Denies pruitis. Denies rash. PHYSICAL EXAM: VITAL SIGNS: Reviewed. GENERAL: Well-developed in no acute distress. HEENT: Head is normocephalic. Pupils are equal, round. Sclerae anicteric. Mucous membranes of the mouth are moist. Neck supple. No JVD or thyromegaly LUNGS: Respirations even and unlabored. Lungs essentially clear to auscultation bilaterally. HEART: Regular rate and rhythm. S1 and S2 heard. ABDOMEN: Soft. Nondistended. Nontender. EXTREMITIES: Normal range of motion. No clubbing or cyanosis. Peripheral pul ses intact. Bilateral lower extremity edema noted. NEUROLOGIC: Awake and alert. Oriented x 3. ASSESSMENT: Shortness of breath Acute on chronic heart failure with reduced EF, 20 to 25% Persistent atrial fibrillation status post AV kristen ablation History of biventricular ICD, [employer] Nonobstructive coronary artery disease Nonischemic cardiomyopathy History of ventricular tachycardia Hyperlipidemia Moderate mitral regurgitation Anemia, unclear etiology PLAN: Obtain iron panel and ferritin level No need to repeat echocardiogram Resume home cardiac medications including atorvastatin, metoprolol, Xarelto, Entresto, and Aldactone Add Farxiga 10 mg daily Continue IV Lasix 40 mg every 12 hours Daily weights, accurate intake and output, monitoring of kidney function Further recommendations pending patient course Nurse practitioner note has been reviewed by physician. Signing provider agrees with the documented findings, assessment, and plan of care documented by ANALYSIS INTERN as a scribe. Past Medical History Past Medical History: Atrial Fibrillation, Cancer, Deep Vein Thrombosis (DVT), Hearing Disorder / Deafness, Hyperlipidemia, Hypertension, Myocardial Infarction ([place]), Osteoarthritis (OA), Syncope, Thyroid Disorder Additional Past Medical History / Comment(s): hiatal hernia, hx basal skin cancer, hx diverticulitis, rt ear deaf . PIERSON left ear. hx of syncope. Breast cancer >5 yrs ago. no chemo or radiation. blood clot to left ankle. growth to rt nostril. Last Myocardial Infarction Date:: 04/2012 History of Any Multi-Drug Resistant Organisms: None Reported Past Surgical History: AICD, Bowel Resection, Breast Surgery, Cardiac Ablation, Cholecystectomy, Heart Catheterization, Hysterectomy, Joint Replacement, Orthopedic Surgery, Pacemaker, Tonsillectomy Additional Past Surgical History / Comment(s): bilateral breast reduction 1995, arthroscopic rt knee, partial hysterectomy (bilateral ovaries retained), pacemaker battery replaced 2022, right breast lumpectomy, TRK 05/07/22 Past Anesthesia/Blood Transfusion Reactions: No Reported Reaction Additional Past Anesthesia/Blood Transfusion Reaction / Comment(s): No blood transfusions to date (pt had an autolygous transfusion when undergoing bilateral breast reduction). Type of Cardiac Device: Permanent Pacemaker, AICD Device Placement Date:: 2006 (info from pt's med [employer]- [id number],model#[id number]) Past Psychological History: No Psychological Hx Reported Smoking Status: Former smoker Past Alcohol Use History: None Reported Additional Past Alcohol Use History / Comment(s): smoked for 20 years 1 pack/wk quit 1995 Past Drug Use History: None Reported - Past Family History Mother Family Medical History: Cancer Additional Family Medical History / Comment(s): Colon cancer dx at age 74, at age 84. Sister(s) Family Medical History: Cancer, CVA/TIA, Deep Vein Thrombosis (DVT) Additional Family Medical History / Comment(s): pt has 2 sisters: sister #1: at age 79 from stroke complications (also had a hx of blood clots). sister #2: had a cancerous tumor on aortic valve. Son(s) Family Medical History: Deep Vein Thrombosis (DVT) Brother(s) Family Medical History: CVA/TIA, Deep Vein Thrombosis (DVT) Additional Family Medical History / Comment(s): She has 1 brother with a history of stroke and blood clot. Father Family Medical History: Congestive Heart Failure (CHF) Medications and Allergies Home Medications Medication Instructions Recorded Confirmed Type Furosemide [Lasix] 40 mg PO BID@0800,1500 11/30/13 08/26/24 History Levothyroxine Sodium [Synthroid] 75 mcg PO DAILY 10/20/17 08/26/24 History Sacubitril/Valsartan [Entresto 24 1 tab PO BID 01/19/18 08/26/24 History mg-26 mg Tablet] allopurinoL [Zyloprim] 100 mg PO HS 01/27/20 08/26/24 History Atorvastatin [Lipitor] 20 mg PO HS 06/09/20 08/26/24 History Rivaroxaban [Xarelto] 15 mg PO HS 06/14/21 08/26/24 History Potassium Gluconate [Potassium 99 mg PO HS 06/24/21 08/26/24 History Gluconate ER] Ubidecarenone [Coenzyme Q10] 200 mg PO HS 12/27/22 08/26/24 History Magnesium 250 mg PO HS 11/21/23 08/26/24 History Spironolactone [Aldactone] 25 mg PO DAILY 11/21/23 08/26/24 History Metoprolol Succinate (ER) [Toprol 25 mg PO BID 08/26/24 08/26/24 History Xl] Vitamin D3(Unknown Dose) 1 tab PO BID 08/26/24 08/26/24 History Allergies Allergy/AdvReac Type Severity Reaction Status Date / Time adhesive tape Allergy Rash/Hives Verified 08/26/24 09:15 ibuprofen [From Motrin] Allergy Swelling & Verified 08/26/24 09:15 itching on entire body levofloxacin [From Levaquin] Allergy Rash/Hives Verified 08/26/24 09:15 Physical Exam Vitals: Vital Signs Temp Pulse Pulse Resp BP BP Pulse Ox 08/27/24 07:38 97.6 F 74 17 107/71 95 08/27/24 04:34 65 18 108/62 95 08/27/24 00:00 62 18 111/76 96 08/26/24 20:24 87 08/26/24 20:13 85 08/26/24 19:44 63 20 116/71 94 L 08/26/24 13:16 60 20 106/73 96 08/26/24 11:03 20 Intake and Output 08/26/24 08/27/24 08/27/24 22:59 06:59 14:59 Other: Weight 83.915 kg Results 08/27/24 05:24 08/27/24 05:24 Cardiac Enzymes 08/26/24 08/26/24 08/26/24 Range/Units 09:38 09:38 13:55 AST 23 (14-36) U/L Troponin I 0.019 0.020 (0.000-0.034) ng/mL 08/26/24 08/27/24 Range/Units 17:12 05:24 AST 18 (14-36) U/L Troponin I 0.025 (0.000-0.034) ng/mL Coagulation 08/26/24 Range/Units 09:38 PT 15.5 H (10.0-12.5) sec APTT 28.5 (22.0-30.0) sec CBC 08/27/24 Range/Units 05:24 WBC 9.73 (4.50-10.00) X 10*3/uL RBC 3.04 L (4.10-5.20) X 10*6/uL Hgb 8.3 L (12.0-15.0) g/dL Hct 27.9 L (37.2-46.3) % Plt Count 227 (140-440) X 10*3/uL Comprehensive Metabolic Panel 08/26/24 08/27/24 Range/Units 09:38 05:24 Sodium 141 143 (137-145) mmol/L Potassium 3.2 L 3.7 (3.5-5.1) mmol/L Chloride 100 102 (98-107) mmol/L Carbon Dioxide 31 H 29.9 (22-30) mmol/L BUN 29 H 24.3 (7-17) mg/dL Creatinine 1.20 H 1.2 (0.52-1.04) mg/dL Glucose 94 93 (74-99) mg/dL Calcium 9.6 9.2 (8.4-10.2) mg/dL AST 23 18 (14-36) U/L ALT 15 12 (4-34) U/L Alkaline Phosphatase 80 79 (38-126) U/L Total Protein 7.1 6.2 (6.3-8.2) g/dL Albumin 4.2 3.7 L (3.5-5.0) g/dL Current Medications Generic Name Dose Route Start Last Admin Trade Name Freq PRN Reason Stop Dose Admin Albuterol/Ipratropium 3 ml 08/26/24 19:11 08/26/24 20:13 Ipratropium-Albuterol 3 Ml Neb INHALATION 3 ml RT-QID PRN Administration Shortness Of Breath Or Wheezing Allopurinol 100 mg 08/26/24 21:00 08/26/24 20:41 Allopurinol 100 Mg Tab PO 100 mg HS REYNA Administration Atorvastatin Calcium 20 mg 08/26/24 21:00 08/26/24 20:41 Atorvastatin 20 Mg Tab PO 20 mg HS REYNA Administration Furosemide 40 mg 08/27/24 09:00 08/27/24 08:56 Furosemide 10 Mg/Ml 4 Ml Vial IV 40 mg Q12HR REYNA Administration Levothyroxine Sodium 75 mcg 08/27/24 06:30 08/27/24 06:36 Levothyroxine 75 Mcg Tab PO 75 mcg DAILY@0630 REYNA Administration Magnesium Hydroxide 2,400 mg 08/26/24 12:11 Magnesium Hydroxide 2,400 Mg/30 Ml Cup PO DAILY PRN Constipation Magnesium Oxide 400 mg 08/26/24 21:00 08/26/24 20:41 Magnesium Oxide 400 Mg Tab PO 400 mg HS REYNA Administration Metoprolol Succinate 25 mg 08/26/24 21:00 08/27/24 08:56 Metoprolol Succinate (Er) 50 Mg Tab.Er.24h PO 25 mg BID REYNA Administration Miscellaneous Information 1 each 08/27/24 06:14 Potassium Replacement Protocol 1 Each Misc MISCELLANE DAILY PRN Per Protocol Protocol Naloxone HCl 0.2 mg 08/26/24 12:11 Naloxone 0.4 Mg/Ml 1 Ml Vial IV Q2M PRN Opioid Reversal Rivaroxaban 15 mg 08/26/24 21:00 08/26/24 20:41 Rivaroxaban 15 Mg Tab PO 15 mg HS REYNA Administration Protocol Sacubitril/Valsartan 1 each 08/26/24 21:00 08/27/24 08:56 Sacubitril/Valsartan 24 Mg-26 Mg Tablet PO 1 each BID REYNA Administration Senna/Docusate Sodium 1 each 08/26/24 21:00 08/27/24 08:56 Sennosides-Docusate Sodium 1 Each Tab PO 1 each BID REYNA Administration Spironolactone 25 mg 08/27/24 09:00 08/27/24 08:56 Spironolactone 25 Mg Tab PO 25 mg DAILY REYNA Administration Intake and Output 08/26/24 08/27/24 08/27/24 22:59 06:59 14:59 Other: Weight 83.915 kg Patient Weight 08/28/24 06:59 Weight 83.915 kg 08/27/24 05:24 08/27/24 05:24
[2024-08-27] MEDS: DAPAGLIFLOZIN PROPANEDIOL 10 MG TABLET PO SCH (12:39)
[2024-08-27 14:20] LABS: % Iron Saturation 5.96 (12.00-45.00); Ferritin 13.3 ng/mL (10.0-291.0)
--- NOTE | 2024-08-27 14:49 | P.HPIM ---
History of Present Illness H&P Date: 08/26/24 Chief Complaint: Acute on chronic systolic heart failure HISTORY OF PRESENT ILLNESS: This is a 83-year-old female with a previous medical history significant for hypertension and hypertensive cardiovascular disease, hyperlipidemia, nonischemic cardiomyopathy status post biventricular AICD/permanent pacemaker, paroxysmal atrial fibrillation, gout, malignant neopl asm of the right breast, hypothyroidism, patient presented to the emergency department at [facility] with increased shortness of breath as well as increased swelling in both lower extremities, she did receive 60 mg Lasix in the emergency department, and Dr. Mcmahan did not feel that the patient can be discharged home at that time, therefore she was admitted to the hospital for an observation status she was started on Lasix 40 mg IV push every 12 hours, and she will be seen in consultation by cardiology, follow-up with the patient very closely, if the fluid status is better in the next 24 hours she can be discharged home and follow-up with us as an outpatient. Patient was supposed to come to see me in the office tomorrow morning, however she ended up coming to the ER for evaluation and she will be staying overnight at least and reevaluate the patient over the next 24 hours. REVIEW OF SYSTEMS: Constitutional: No documented fever, no chills, no night sweats. No weight change. No weakness, fatigue or lethargy. No daytime sleepiness. HEENT: No headache. No blurred vision or double vision, no loss of vision. No loss of Hearing, no ringing in the ears, no dizziness. No nasal drainage or congestion. No epistaxis. No sore throat. Lungs: positive for shortness of breath, no cough, no sputum production. No wheezing. Reports dyspnea with activity. Cardiovascular: no chest pain, positive for lower extremity edema. No palpitations. No paroxysmal nocturnal dyspnea. positive for orthopnea. No lightheadedness or dizziness. No syncopal episodes. Abdominal: Reports abdominal pain. No nausea, vomiting. No diarrhea. No constipation. No bloody or tarry stools reports loss of appetite. Genitourinary: No dysuria, increased frequency, urgency. No urinary retention. Musculoskeletal: No myalgias. No muscle weakness, no gait dysfunction, no frequent falls. No back pain. No neck pain. Integumentary: No wounds, no lesions. No rash or pruritus. No unusual b ruising. No change in hair or nails. Neurologic: No aphasia. No facial droop. No change in mentation. No head injury. No headache. No paralysis. No paresthesia. Psychiatric: positive for depression. positive for anxiety. No mood swings. Endocrine: No abnormal blood sugars. No weight change. PAST MEDICAL HISTORY: Hypertension and hypertensive cardiovascular disease. Hyperlipidemia. Nonischemic cardiomyopathy status post biventricular pacemaker. Paroxysmal atrial fibrillation. Gout. History of right breast cancer . Hypothyroidism. PAST SURGICAL HISTORY: biventricular AICD/pacemaker Generator change 2013. Breast reduction surgery Right lumpectomy for breast cancer Left heart catheterization 2011 that showed 30% of 3 vessels. Cardiac ablation. Cholecystectomy. Hysterectomy. Right arthroscopic knee surgery Tonsillectomy. Colonoscopy SOCIAL HISTORY: patient used to smoke about a pack every day she smoked for many years and quit more than 20 years ago, she drinks occasionally she denies any drug use or abuse. FAMILY HISTORY: father at age of 65 from CAD had a permanent pacemaker, mother at age of 82 from colon cancer with colostomy patient has one brother who at the age of 75 from CVA and CAD patient has 2 sisters one from CVA and the other one is alive with paroxysmal atrial fibrillation and diabetes mellitus type 2, patient has one son with atrial flutter and one daughter with atrial flutter as well. PHYSICAL EXAMINATION: General: 83-year-old female sitting up in bed in minimal respiratory distress HEENT: Head is atraumatic, normocephalic, pupils were equal round reactive to light and recommendation, extraocular muscle movement were intact, sclera nonicteric, conjunctivae were pale, mucous membranes of the mouth are somewhat dry. Neck: Supple, no JVP, normal carotid upstroke bilaterally, no lymphadenopathy. Chest: Decreased breath sounds at the bases, few rhonchi, no expiratory wheezes, no chest wall tenderness, no intercostal retractions. Heart: First heart sound is normal, second heart sounds normal, AICD in the left upper precordium there is systolic ejection murmur 2 over systolic in the left sternal border. Abdomen: Soft, nontender, nondistended, positive bowel sounds. Extremities: There is +1 edema no calf tenderness DP +2 bilaterally. Neurologic examination: Patient is awake alert and oriented X3, cranial nerves II-12 appear grossly intact, muscle power were 5 out of 5 in upper extremities and 5 out of 5 in bilateral lower extremities, deep tendon reflexes normal bilaterally. ASSESSMENT AND PLAN: 1. Acute on chronic systolic heart failure due to nonischemic cardiomyopathy. Continue Lasix 40 mg IV push every 12 hours, monitor input and output and daily weight, continue patient on Entresto 24/26 mg orally twice every day, continue metoprolol ER 25 mg twice every day, monitor the patient very closely, c ardiology consultation repeat labs tomorrow morning. 2. Nonischemic cardiomyopathy post biventricular AICD. Continue patient on metoprolol succinate 200 mg orally once every day, continue patient on spironolactone 25 mg orally once every day, continue Lasix 40 mg IV push twice every day continue patient on Entresto 24-26 mg orally bid. 3. Hypertension and hypertensive cardiovascular disease. Continue metoprolol ER 25 mg orally twice every day, continue Entrestor 24-26 mg orally twice every day. 4. Hyperlipidemia. Continue atorvastatin 20 mg orally once every day. Monitor the patient lipid panel, keep LDL 55-70. 5. Hypothyroidism. Continue patient on Synthroid 75 g orally once every day. 6. History of diverticulosis with Diverticulitis in the past stable at this time. 7. Paroxysmal atrial fibrillation. Continue patient on metoprolol ER 25 mg po twice every day, continue with Xarelto 15 mg orally once every day, 8. History of gout. Continue patient on allopurinol 100 mg orally once every day. 9. History of breast cancer. Currently in remission. 10. History of osteoarthritis. Stable at this time. 11. Chronic kidney disease stage IIIa monitor the patient's symptoms very closely, monitor the patient CMP over the next 24 hours. Continue current treatment plan. 12. DVT prophylaxis. Continue patient on Xarelto 15 mg orally once every day. 13. GI prophylaxis. Continue patient on PPI. 14. Observation. 15. Full code per Past Medical History Past Medical History: Atrial Fibrillation, Cancer, Deep Vein Thrombosis (DVT), Hearing Disorder / Deafness, Hyperlipidemia, Hypertension, Myocardial Infarction ([place]), Osteoarthritis (OA), Syncope, Thyroid Disorder Additional Past Medical History / Comment(s): hiatal hernia, hx basal skin cancer, hx diverticulitis, rt ear deaf . PIERSON left ear. hx of syncope. Flu A 5 weeks ago. Breast cancer >5 yrs ago. no chemo or radiation. blood clot to left ankle. growth to rt nostril. Last Myocardial Infarction Date:: 04/2012 History of Any Multi-Drug Resistant Organisms: None Reported Past Surgical History: AICD, Bowel Resection, Breast Surgery, Cardiac Ablation, Cholecystectomy, Heart Catheterization, Hysterectomy, Joint Replacement, Orthopedic Surgery, Pacemaker, Tonsillectomy Additional Past Surgical History / Comment(s): bilateral breast reduction 1995, arthroscopic rt knee, partial hysterectomy (bilateral ovaries retained), pacemaker battery replaced 2022, right breast lumpectomy, TRK 05/07/22 Past Anesthesia/Blood Transfusion Reactions: No Reported Reaction Additional Past Anesthesia/Blood Transfusion Reaction / Comment(s): No blood transfusions to date (pt had an autolygous transfusion when undergoing bilateral breast reduction). Type of Cardiac Device: Permanent Pacemaker, AICD Device Placement Date:: 2006 (info from pt's [employer]- [id number],model#[id number]) Past Psychological History: No Psychological Hx Reported Smoking Status: Former smoker Past Alcohol Use History: None Reported Past Drug Use History: None Reported - Past Family History Mother Family Medical History: Cancer Additional Family Medical History / Comment(s): Colon cancer dx at age 74, at age 84. Sister(s) Family Medical History: Cancer, CVA/TIA, Deep Vein Thrombosis (DVT) Additional Family Medical History / Comment(s): pt has 2 sisters: sister #1: at age 79 from stroke complications (also had a hx of blood clots). sister #2: had a cancerous tumor on aortic valve. Son(s) Family Medical History: Deep Vein Thrombosis (DVT) Brother(s) Family Medical History: CVA/TIA, Deep Vein Thrombosis (DVT) Additional Family Medical History / Comment(s): She has 1 brother with a history of stroke and blood clot. Father Family Medical History: Congestive Heart Failure (CHF) Medications and Allergies Home Medications Medication Instructions Recorded Confirmed Type Furosemide [Lasix] 40 mg PO BID@0800,1500 11/30/13 08/26/24 History Levothyroxine Sodium [Synthroid] 75 mcg PO DAILY 10/20/17 08/26/24 History Sacubitril/Valsartan [Entresto 24 1 tab PO BID 01/19/18 08/26/24 History mg-26 mg Tablet] allopurinoL [Zyloprim] 100 mg PO HS 01/27/20 08/26/24 History Atorvastatin [Lipitor] 20 mg PO HS 06/09/20 08/26/24 History Rivaroxaban [Xarelto] 15 mg PO HS 06/14/21 08/26/24 History Potassium Gluconate [Potassium 99 mg PO HS 06/24/21 08/26/24 History Gluconate ER] Ubidecarenone [Coenzyme Q10] 200 mg PO HS 12/27/22 08/26/24 History Magnesium 250 mg PO HS 11/21/23 08/26/24 History Spironolactone [Aldactone] 25 mg PO DAILY 11/21/23 08/26/24 History Metoprolol Succinate (ER) [Toprol 25 mg PO BID 08/26/24 08/26/24 History Xl] Vitamin D3(Unknown Dose) 1 tab PO BID 08/26/24 08/26/24 History Allergies Allergy/AdvReac Type Severity Reaction Status Date / Time adhesive tape Allergy Rash/Hives Verified 08/26/24 09:15 ibuprofen [From Motrin] Allergy Swelling & Verified 08/26/24 09:15 itching on entire body levofloxacin [From Levaquin] Allergy Rash/Hives Verified 08/26/24 09:15 Physical Exam Vitals: Vital Signs Temp Pulse Resp BP Pulse Ox 08/26/24 13:16 60 20 106/73 96 08/26/24 11:03 20 08/26/24 09:12 98.3 F 67 22 103/73 98 Intake and Output 08/26/24 08/26/24 08/26/24 06:59 14:59 22:59 Other: Weight 83.915 kg Results CBC & Chem 7: 08/26/24 09:38 08/26/24 09:38 Labs: Abnormal Lab Results - Last 24 Hours (Table) 08/26/24 08/26/24 08/26/24 Range/Units 09:38 09:38 09:38 RBC 3.39 L (3.80-5.40) m/uL Hgb 9.3 L (11.4-16.0) gm/dL Hct 30.8 L (34.0-46.0) % MCHC 30.2 L (31.0-37.0) g/dL PT 15.5 H (10.0-12.5) sec INR 1.5 H (<1.2) Potassium 3.2 L (3.5-5.1) mmol/L Carbon Dioxide 31 H (22-30) mmol/L BUN 29 H (7-17) mg/dL Creatinine 1.20 H (0.52-1.04) mg/dL
--- NOTE | 2024-08-27 15:38 | P.PN ---
Subjective Progress Note Date: 08/27/24 HISTORY OF PRESENT ILLNESS: This is a 83-year-old female with a previous medical history signif icant for hypertension and hypertensive cardiovascular disease, hyperlipidemia, nonischemic cardiomyopathy status post biventricular AICD/permanent pacemaker, paroxysmal atrial fibrillation, gout, malignant neoplasm of the right breast, hypothyroidism, patient presented to the emergency department at [facility] with increased shortness of breath as well as increased swelling in both lower extremities, she did receive 60 mg Lasix in the emergency department, and Dr. Mcmahan did not feel that the patient can be discharged home at that time, therefore she was admitted to the hospital for an observation status she was started on Lasix 40 mg IV push every 12 hours, and she will be seen in consultation by cardiology, follow-up with the patient very closely, if the fluid status is better in the next 24 hours she can be discharged home and follow-up with us as an outpatient. Patient was supposed to come to see me in the office tomorrow morning, however she ended up coming to the ER for evaluation and she will be staying overnight at least and reevaluate the patient over the next 24 hours. 08/27: Patient sitting up in bed in no apparent distress, she is feeling a bit better today than yesterday, she was started on DuoNeb 3 mL nebulization 4 times every day, she was also started on Lasix 40 mg IV push every 12 hours, will continue with that, cardiology saw the patient, recommended continue current treatment plan, will follow-up with the patient for another 24 hours, continue to monitor input and output and daily weight. Echocardiogram is not repeated. REVIEW OF SYSTEMS: Constitutional: No documented fever, no chills, no night sweats. No weight change. No weakness, fatigue or lethargy. No daytime sleepiness. HEENT: No headache. No blurred vision or double vision, no loss of vision. No loss of Hearing, no ringing in the ears, no dizziness. No nasal drainage or congestion. No epistaxis. No sore throat. Lungs: positive for shortness of breath, no cough, no sputum production. No wheezing. Reports dyspnea with activity. Cardiovascular: no chest pain, positive for lower extremity edema. No palpitations. No paroxysmal nocturnal dyspnea. positive for orthopnea. No lightheadedness or dizziness. No syncopal episodes. Abdominal: Reports abdominal pain. No nausea, vomiting. No diarrhea. No constipation. No bloody or tarry stools reports loss of appetite. Genitourinary: No dysuria, increased frequency, urgency. No urinary retention. Musculoskeletal: No myalgias. No muscle weakness, no gait dysfunction, no frequent falls. No back pain. No neck pain. Integumentary: No wounds, no lesions. No rash or pruritus. No unusual bruising. No change in hair or nails. Neurologic: No aphasia. No facial droop. No change in mentation. No head injury. No headache. No paralysis. No paresthesia. Psychiatric: positive for depression. positive for anxiety. No mood swings. Endocrine: No abnormal blood sugars. No weight change. PHYSICAL EXAMINATION: General: 83-year-old female sitting up in bed in minimal respiratory distress HEENT: Head is atraumatic, normocephalic, pupils were equal round reactive to light and recommendation, extraocular muscle movement were intact, sclera nonicteric, conjunctivae were pale, mucous membranes of the mouth are somewhat dry. Neck: Supple, no JVP, normal carotid upstroke bilaterally, no lymphadenopathy. Chest: Decreased breath sounds at the bases, few rhonchi, no expiratory wheezes, no chest wall tenderness, no intercostal retractions. Heart: First heart sound is normal, second heart sounds normal, AICD in the left upper precordium there is systolic ejection murmur 2 over systolic in the left sternal border. Abdomen: Soft, nontender, nondistended, positive bowel sounds. Extremities: There is +1 edema no calf tenderness DP +2 bilaterally. Neurologic examination: Patient is awake alert and oriented X3, cranial nerves II-12 appear grossly intact, muscle power were 5 out of 5 in upper extremities and 5 out of 5 in bilateral lower extremities, deep tendon reflexes normal bilaterally. ASSESSMENT AND PLAN: 1. Acute on chronic systolic heart failure due to nonischemic cardiomyopathy. Continue Lasix 40 mg IV push every 12 hours, monitor input and output and daily weight, continue patient on Entresto 24/26 mg orally twice every day, continue metoprolol ER 25 mg twice every day, monitor the patient very closely, cardiology consultation appreciated. 2. Nonischemic cardiomyopathy post biventricular AICD. Continue patient on metoprolol succinate 200 mg orally once every day, continue patient on spironolactone 25 mg orally once every day, continue Lasix 40 mg IV push twice every day continue patient on Entresto 24-26 mg orally bid. 3. Hypertension and hypertensive cardiovascular disease. Continue metoprolol ER 25 mg orally twice every day, continue Entrestor 24-26 mg orally twice every day. 4. Hyperlipidemia. Continue atorvastatin 20 mg orally once every day. Monitor the patient lipid panel, keep LDL 55-70. 5. Hypothyroidism. Continue patient on Synthroid 75 g orally once every day. 6. History of diverticulosis with Diverticulitis in the past stable at this time. 7. Paroxysmal atrial fibrillation. Continue patient on metoprolol ER 25 mg po twice every day, continue with Xarelto 15 mg orally once every day, 8. History of gout. Continue patient on allopurinol 100 mg orally once every day. 9. History of breast cancer. Currently in remission. 10. History of osteoarthritis. Stable at this time. 11. Chronic kidney disease stage IIIa monitor the patient's symptoms very closely, monitor the patient CMP over the next 24 hours. Continue current tr eatment plan. 12. DVT prophylaxis. Continue patient on Xarelto 15 mg orally once every day. 13. GI prophylaxis. Continue patient on PPI. 14. Anemia of chronic kidney disease. Monitor the patient labs including iron TIBC ferritin level, B12 folic acid, reticulocyte count, haptoglobin, LDH, kappa and lambda light chain with ratio, serum protein electrophoresis, immunofixation of the serum in the urine as well. 15. Increase activity. Objective - Vital Signs Vital signs: Vital Signs Temp 98.6 F 08/27/24 13:02 Pulse 67 08/27/24 13:02 Resp 17 08/27/24 13:02 BP 110/71 08/27/24 13:02 Pulse Ox 96 08/27/24 13:02 FiO2 Intake & Output 08/26/24 08/27/24 08/27/24 18:59 06:59 18:59 Weight 83.915 kg 83.915 kg - Labs CBC & Chem 7: 08/27/24 05:24 08/27/24 05:24 Labs: Abnormal Lab Results - Last 24 Hours (Table) 08/27/24 08/27/24 08/27/24 Range/Units 05:24 05:24 05:24 RBC 3.04 L (4.10-5.20) X 10*6/uL Hgb 8.3 L (12.0-15.0) g/dL Hct 27.9 L (37.2-46.3) % MCHC 29.7 L (32.0-37.0) g/dL Est GFR (CKD-EPI) 45 L (>=60) BUN/Creatinine Ratio 20.25 H (12.00-20.00) Ratio Iron 24 L (50-170) UG/DL % Saturation 5.96 L (12.00-45.00) Albumin 3.7 L (3.8-4.9) g/dL Albumin/Globulin Ratio 1.48 L (1.60-3.17) Ratio
[2024-08-27 15:58] LABS: Reticulocyte % 1.8 % (0.5-2.0)
[2024-08-27] MEDS: MELATONIN 3 MG TABLET PO PRN (21:59)
[2024-08-28 02:07] LABS: Protein, Total 6.7 g/dL (6.2-8.2)
[2024-08-28 02:19] LABS: % Iron Saturation 3.91 (12.00-45.00); Ferritin 14.8 ng/mL (10.0-291.0)
[2024-08-28 09:57] LABS: Basophils # (A) 0.04 X 10*3/uL (0.00-0.10); Basophils % (A) 0.4 %; Eosinophils # (A) 0.11 X 10*3/uL (0.04-0.35); HCT 28.6 % (37.2-46.3); HGB 8.6 g/dL (12.0-15.0); Lymphocytes # (A) 1.63 X 10*3/uL (0.90-5.00); Lymphocytes % (A) 15.5 %; MCH 27.3 pg (27.0-32.0); MCHC 30.1 g/dL (32.0-37.0); MCV 90.8 FL (80.0-97.0); Mean Platelet Volume 11.5 FL (9.5-12.2); Monocytes # (A) 0.96 X 10*3/uL (0.20-1.00); Monocytes % (A) 9.1 %; NRBC Per 100 WBC 0 X 10*3/uL (0.00-0.01); Neutrophils # (A) 7.74 X 10*3/uL (1.80-7.70); Neutrophils % (A) 73.6 %; Platelet Count 217 X 10*3/uL (140-440); RBC 3.15 X 10*6/uL (4.10-5.20); RDW 14.3 % (11.5-14.5); WBC 10.52 X 10*3/uL (4.50-10.00)
[2024-08-28 10:29] LABS: BUN/Creat Ratio 24.91 Ratio (12.00-20.00); Blood Urea Nitrogen 27.4 mg/dL (9.0-27.0); Calcium 9.5 mg/dL (8.7-10.3); Chloride 99 mmol/L (96-109); Glucose 114 mg/dL (70-110); Potassium 3.4 mmol/L (3.5-5.5); Sodium 141 mmol/L (135-145)
[2024-08-28] MEDS: POTASSIUM CHLORIDE ER 20 MEQ TAB.ER PO STA (12:30)
--- NOTE | 2024-08-28 12:35 | P.PN ---
Subjective Progress Note Date: 08/28/24 HISTORY OF PRESENT ILLNESS: This is a 83-year-old female with a previous medical history signif icant for hypertension and hypertensive cardiovascular disease, hyperlipidemia, nonischemic cardiomyopathy status post biventricular AICD/permanent pacemaker, paroxysmal atrial fibrillation, gout, malignant neoplasm of the right breast, hypothyroidism, patient presented to the emergency department at [facility] with increased shortness of breath as well as increased swelling in both lower extremities, she did receive 60 mg Lasix in the emergency department, and Dr. Mcmahan did not feel that the patient can be discharged home at that time, therefore she was admitted to the hospital for an observation status she was started on Lasix 40 mg IV push every 12 hours, and she will be seen in consultation by cardiology, follow-up with the patient very closely, if the fluid status is better in the next 24 hours she can be discharged home and follow-up with us as an outpatient. Patient was supposed to come to see me in the office tomorrow morning, however she ended up coming to the ER for evaluation and she will be staying overnight at least and reevaluate the patient over the next 24 hours. 08/27: Patient sitting up in bed in no apparent distress, she is feeling a bit better today than yesterday, she was started on DuoNeb 3 mL nebulization 4 times every day, she was also started on Lasix 40 mg IV push every 12 hours, will continue with that, cardiology saw the patient, recommended continue current treatment plan, will follow-up with the patient for another 24 hours, continue to monitor input and output and daily weight. Echocardiogram is not repeated. 08/28: Patient sitting up in the edge of the bed, she continues to be somewhat short of breath with minimal activity, she continues to have a dry cough, no phlegm production, laboratory evaluation showed evidence of hypokalemia will replace with potassium chloride 40 mill equivalent x 1, continue current treatment plan, patient was seen in consultation by cardiology who recommended the same thing, changed the patient to inpatient as the patient has an acute exacerbation of congestive heart failure with HFrEF due to nonischemic cardiomyopathy. I will follow-up with the patient very closely, she was started also on Farxiga 10 mg orally once every day. REVIEW OF SYSTEMS: Constitutional: No documented fever, no chills, no night sweats. No weight change. No weakness, fatigue or lethargy. No daytime sleepiness. HEENT: No headache. No blurred vision or double vision, no loss of vision. No loss of Hearing, no ringing in the ears, no dizziness. No nasal drainage or congestion. No epistaxis. No sore throat. Lungs: positive for shortness of breath, no cough, no sputum production. No wheezing. Reports dyspnea with activity. Cardiovascular: no chest pain, positive for lower extremity edema. No palpi tations. No paroxysmal nocturnal dyspnea. positive for orthopnea. No lightheadedness or dizziness. No syncopal episodes. Abdominal: Reports abdominal pain. No nausea, vomiting. No diarrhea. No constipation. No bloody or tarry stools reports loss of appetite. Genitourinary: No dysuria, increased frequency, urgency. No urinary retention. Musculoskeletal: No myalgias. No muscle weakness, no gait dysfunction, no frequent falls. No back pain. No neck pain. Integumentary: No wounds, no lesions. No rash or pruritus. No unusual bruising. No change in hair or nails. Neurologic: No aphasia. No facial droop. No change in mentation. No head injury. No headache. No paralysis. No paresthesia. Psychiatric: positive for depression. positive for anxiety. No mood swings. Endocrine: No abnormal blood sugars. No weight change. PHYSICAL EXAMINATION: General: 83-year-old female sitting up in bed in minimal respiratory distress HEENT: Head is atraumatic, normocephalic, pupils were equal round reactive to light and recommendation, extraocular muscle movement were intact, sclera nonic teric, conjunctivae were pale, mucous membranes of the mouth are somewhat dry. Neck: Supple, no JVP, normal carotid upstroke bilaterally, no lymphadenopathy. Chest: Decreased breath sounds at the bases, few rhonchi, no expiratory wheezes, no chest wall tenderness, no intercostal retractions. Heart: First heart sound is normal, second heart sounds normal, AICD in the left upper precordium there is systolic ejection murmur 2 over systolic in the left sternal border. Abdomen: Soft, nontender, nondistended, positive bowel sounds. Extremities: There is +1 edema no calf tenderness DP +2 bilaterally. Neurologic examination: Patient is awake alert and oriented X3, cranial nerves II-12 appear grossly intact, muscle power were 5 out of 5 in upper extremities and 5 out of 5 in bilateral lower extremities, deep tendon reflexes normal bilaterally. ASSESSMENT AND PLAN: 1. Acute on chronic systolic heart failure due to nonischemic cardiomyopathy. Continue Lasix 40 mg IV push every 12 hours, monitor input and output and daily weight, continue patient on Entresto 24/26 mg orally twice every day, continue metoprolol ER 25 mg twice every day, continue spironolactone 25 mg once every day, Farxiga 10 mg once every day, monitor the patient's symptoms very closely. 2. Nonischemic cardiomyopathy post biventricular AICD. Continue patient on metoprolol succinate 200 mg orally once every day, continue patient on spironolactone 25 mg orally once every day, continue Lasix 40 mg IV push twice every day continue patient on Entresto 24-26 mg orally bid continue spironolactone 25 mg orally once every day, continue Farxiga 10 mg once every day for guideline directed medical therapy. 3. Hypertension and hypertensive cardiovascular disease. Continue metoprolol ER 25 mg orally twice every day, continue Entrestor 24-26 mg orally twice every day. 4. Hyperlipidemia. Continue atorvastatin 20 mg orally once every day. Monitor the patient lipid panel, keep LDL 55-70. 5. Hypothyroidism. Continue patient on Synthroid 75 g orally once every day. 6. History of diverticulosis with Diverticulitis in the past stable at this time. 7. Paroxysmal atrial fibrillation. Continue patient on metoprolol ER 25 mg po twice every day, continue with Xarelto 15 mg orally once every day, 8. History of gout. Continue patient on allopurinol 100 mg orally once every day. 9. History of breast cancer. Currently in remission. 10. History of osteoarthritis. Stable at this time. 11. Chronic kidney disease stage IIIa monitor the patient's symptoms very closely, monitor the patient CMP over the next 24 hours. Continue current treatment plan. 12. DVT prophylaxis. Continue patient on Xarelto 15 mg orally once every day. 13. GI prophylaxis. Continue patient on PPI. 14. Anemia of chronic kidney disease. Monitor the patient labs including iron TIBC ferritin level, B12 folic acid, reticulocyte count, haptoglobin, LDH, kappa and lambda light chain with ratio, serum protein electrophoresis, immunofixation of the serum in the urine as well. Some the labs are back the other are still pending. 15. Hypokalemia status post replacement 16. Home tomorrow morning. Objective - Vital Signs Vital signs: Vital Signs Temp 97.4 F L 08/28/24 07:33 Pulse 65 08/28/24 07:33 Resp 16 08/28/24 07:33 BP 114/74 08/28/24 07:33 Pulse Ox 95 08/28/24 07:33 FiO2 Intake & Output 08/27/24 08/28/24 08/28/24 18:59 06:59 18:59 Intake Total 780 Balance 780 Weight 83.915 kg 89 kg Intake: Oral 780 Other: # Voids 2 1 # Bowel Movements 1 - Labs CBC & Chem 7: 08/28/24 03:25 08/28/24 03:25 Labs: Abnormal Lab Results - Last 24 Hours (Table) 08/27/24 08/27/24 08/28/24 Range/Units 05:24 15:27 03:25 WBC (4.50-10.00) X 10*3/uL RBC (4.10-5.20) X 10*6/uL Hgb (12.0-15.0) g/dL Hct (37.2-46.3) % MCHC (32.0-37.0) g/dL Neutrophils # (1.80-7.70) X 10*3/uL Potassium 3.4 L (3.5-5.5) mmol/L Anion Gap 13.00 H (4.00-12.00) mmol/L BUN 27.4 H (9.0-27.0) mg/dL Est GFR (CKD-EPI) 50 L (>=60) BUN/Creatinine Ratio 24.91 H (12.00-20.00) Ratio Glucose 114 H (70-110) mg/dL Iron 24 L 17 L (50-170) UG/DL % Saturation 5.96 L 3.91 L (12.00-45.00) 08/28/24 Range/Units 03:25 WBC 10.52 H (4.50-10.00) X 10*3/uL RBC 3.15 L (4.10-5.20) X 10*6/uL Hgb 8.6 L (12.0-15.0) g/dL Hct 28.6 L (37.2-46.3) % MCHC 30.1 L (32.0-37.0) g/dL Neutrophils # 7.74 H (1.80-7.70) X 10*3/uL Potassium (3.5-5.5) mmol/L Anion Gap (4.00-12.00) mmol/L BUN (9.0-27.0) mg/dL Est GFR (CKD-EPI) (>=60) BUN/Creatinine Ratio (12.00-20.00) Ratio Glucose (70-110) mg/dL Iron (50-170) UG/DL % Saturation (12.00-45.00)
--- NOTE | 2024-08-28 15:13 | P.PN ---
Subjective Progress Note Date: 08/28/24 HISTORY OF PRESENT ILLNESS: This is a 83-year-old female with a past medical history significant for no nischemic cardiomyopathy, congestive heart failure, atrial fibrillation, AV kristen ablation, biventricular ICD, ventricular tachycardia, hyperlipidemia, and hypothyroidism. Patient follows in the office with Dr. Mireles. We have been asked to see the patient in consultation for congestive heart failure. Patient examined at the bedside. Patient presented to the hospital with a chief complaint of shortness of breath and increased lower extremity edema. She also reports swelling into her abdomen. She complains of a dry cough. She states her symptoms have been going on for approximately 1 week. She states that she has been compliant with all of her medications and also with a low-sodium diet. Patient was found to be in acute CHF and was started on IV Lasix. DIAGNOSTICS: - EKG reveals ventricular paced rhythm - Chest xray persistent cardiomegaly with multilead pacemaker/defibrillator and mild vascular congestion. Small to tiny right pleural effusion redemonstrated. Findings consistent with CHF exacerbation. - Laboratory data: WBC 9.73. Hemoglobin 8.3. Platelet count 227. Sodium 143. Potassium 3.7. BUN 24. Creatinine 1.2. Troponin negative x 3. proBNP 3160. - Current home cardiac medications include Lipitor 20 mg at night, Lasix 40 mg twice a day, metoprolol succinate 25 mg twice daily, Xarelto 15 mg at night, Entresto 24 to 26 mg twice a day, Aldactone 25 mg daily. - Most recent echocardiogram obtained in October 2023 revealed ejection fraction 20 to 25%, hypokinetic basal segments, moderate MR, trace aortic regurgitation, mild tricuspid regurgitation - Cardiac catheterization history: April 2012 revealing ejection fraction 30%. 50% mid LAD. 50% proximal circumflex, 40% RCA stenosis which is chronic and stable. Mild progression of disease in the LAD and circumflex. 08/28/2024 She reports her shortness of breath has improved. She denies any dizziness. No chest pain. Swelling is also improving. She is urinating a lot with the Lasix. She admits she does have some blood when she wipes after a bowel movement and has related this to her hemorrhoids in the past. She does appear iron deficient on lab work. Creatinine 1.1. PHYSICAL EXAM: VITAL SIGNS: Reviewed. GENERAL: Well-developed in no acute distress. HEENT: Head is normocephalic. Pupils are equal, round. Sclerae anicteric. Mucous membranes of the mouth are moist. Neck supple. No JVD or thyromegaly LUNGS: Respirations even and unlabored. Lungs essentially clear to auscultation bilaterally. HEART: Regular rate and rhythm. S1 and S2 heard. ABDOMEN: Soft. Nondistended. Nontender. EXTREMITIES: Normal range of motion. No clubbing or cyanosis. Peripheral pulses intact. Bilateral lower extremity edema noted. NEUROLOGIC: Awake and alert. Oriented x 3. ASSESSMENT: Shortness of breath Acute on chronic heart failure with reduced EF, 20 to 25% Persistent atrial fibrillation status post AV kristen ablation History of biventricular ICD, [employer] Nonobstructive coronary artery disease Nonischemic cardiomyopathy History of ventricular tachycardia Hyperlipidemia Moderate mitral regurgitation Anemia, unclear etiology Iron deficient anemia PLAN: She is anemic, iron deficient on lab work, recommend iron supplement 3 times daily. Consider further workup of anemia. If she continues to be anemic may need to consider holding anticoagulation and may even need to consider Watchman device. Resume home cardiac medications including atorvastatin, metoprolol, Xarelto, Entresto, and Aldactone Add Farxiga 10 mg daily Continue IV Lasix 40 mg every 12 hours Daily weights, accurate intake and output, monitoring of kidney function Further recommendations pending patient course Patient seen and examined in rounds with Dr. Fabian. Nurse practitioner note has been reviewed by physician. Signing provider agrees with the documented findings, assessment, and plan of care documented by [employer] as a scribe. Objective - Vital Signs Vital signs: Vital Signs Temp 97.4 F L 08/28/24 07:33 Pulse 65 08/28/24 07:33 Resp 16 08/28/24 07:33 BP 114/74 08/28/24 07:33 Pulse Ox 95 08/28/24 07:33 FiO2 Intake & Output 08/27/24 08/28/24 08/28/24 18:59 06:59 18:59 Intake Total 780 Balance 780 Weight 83.915 kg 89 kg Intake: Oral 780 Other: # Voids 2 1 # Bowel Movements 1 - Labs CBC & Chem 7: 08/28/24 03:25 08/28/24 03:25 Labs: Abnormal Lab Results - Last 24 Hours (Table) 08/27/24 08/27/24 08/28/24 Range/Units 05:24 15:27 03:25 WBC (4.50-10.00) X 10*3/uL RBC (4.10-5.20) X 10*6/uL Hgb (12.0-15.0) g/dL Hct (37.2-46.3) % MCHC (32.0-37.0) g/dL Neutrophils # (1.80-7.70) X 10*3/uL Potassium 3.4 L (3.5-5.5) mmol/L Anion Gap 13.00 H (4.00-12.00) mmol/L BUN 27.4 H (9.0-27.0) mg/dL Est GFR (CKD-EPI) 50 L (>=60) BUN/Creatinine Ratio 24.91 H (12.00-20.00) Ratio Glucose 114 H (70-110) mg/dL Iron 24 L 17 L (50-170) UG/DL % Saturation 5.96 L 3.91 L (12.00-45.00) 08/28/24 Range/Units 03:25 WBC 10.52 H (4.50-10.00) X 10*3/uL RBC 3.15 L (4.10-5.20) X 10*6/uL Hgb 8.6 L (12.0-15.0) g/dL Hct 28.6 L (37.2-46.3) % MCHC 30.1 L (32.0-37.0) g/dL Neutrophils # 7.74 H (1.80-7.70) X 10*3/uL Potassium (3.5-5.5) mmol/L Anion Gap (4.00-12.00) mmol/L BUN (9.0-27.0) mg/dL Est GFR (CKD-EPI) (>=60) BUN/Creatinine Ratio (12.00-20.00) Ratio Glucose (70-110) mg/dL Iron (50-170) UG/DL % Saturation (12.00-45.00)
[2024-08-28] MEDS: FERROUS SULFATE 325 MG TAB PO SCH (17:58)
[2024-08-28] MEDS: POTASSIUM CHLORIDE ER 20 MEQ TAB.ER PO SCH (17:59)
[2024-08-28] MEDS: TEMAZEPAM 15 MG CAP PO STA (21:28)
[2024-08-29 08:32] LABS: Basophils % (A) 0 %; Eosinophils # (A) 0.2 k/uL (0-0.7); Eosinophils % (A) 2 %; HCT 30.2 % (34.0-46.0); Hypochromasia Marked; Lymphocytes # (A) 1.2 k/uL (1.0-4.8); Lymphocytes % (A) 14 %; MCH 27.4 pg (25.0-35.0); MCHC 29.7 g/dL (31.0-37.0); MCV 92.4 fL (80.0-100.0); Mean Platelet Volume 8.6; Monocytes # (A) 0.5 k/uL (0-1.0); Monocytes % (A) 6 %; Neutrophils # (A) 6.7 k/uL (1.3-7.7); Neutrophils % (A) 77 %; Platelet Count 230 k/uL (150-450); RBC 3.27 m/uL (3.80-5.40); RDW 14.2 % (11.5-15.5); WBC 8.7 k/uL (3.8-10.6)
[2024-08-29 08:56] LABS: ALT 13 U/L (4-34); AST 21 U/L (14-36); African American GFR (CKD) 53 (>60 ml/min/1.73 sqM); Albumin 3.8 g/dL (3.5-5.0); Albumin/Globulin Ratio 1.4; Alkaline Phosphatase 72 U/L (38-126); Anion Gap 8 mmol/L; Blood Urea Nitrogen 27 mg/dL (7-17); Calcium 9.2 mg/dL (8.4-10.2); Carbon Dioxide 32 mmol/L (22-30); Chloride 98 mmol/L (98-107); Globulin 2.7 g/dL; Glucose 98 mg/dL (74-99); Magnesium 2.2 mg/dL (1.6-2.3); Non-African American GFR(CKD) 46 (>60 ml/min/1.73 sqM); Potassium 4.4 mmol/L (3.5-5.1); Sodium 138 mmol/L (137-145); Total Bilirubin 0.8 mg/dL (0.2-1.3); Total Protein 6.5 g/dL (6.3-8.2)
--- NOTE | 2024-08-29 11:09 | P.PN ---
Subjective Progress Note Date: 08/29/24 HISTORY OF PRESENT ILLNESS: This is a 83-year-old female with a previous medical history signif icant for hypertension and hypertensive cardiovascular disease, hyperlipidemia, nonischemic cardiomyopathy status post biventricular AICD/permanent pacemaker, paroxysmal atrial fibrillation, gout, malignant neoplasm of the right breast, hypothyroidism, patient presented to the emergency department at [facility] with increased shortness of breath as well as increased swelling in both lower extremities, she did receive 60 mg Lasix in the emergency department, and Dr. Mcmahan did not feel that the patient can be discharged home at that time, therefore she was admitted to the hospital for an observation status she was started on Lasix 40 mg IV push every 12 hours, and she will be seen in consultation by cardiology, follow-up with the patient very closely, if the fluid status is better in the next 24 hours she can be discharged home and follow-up with us as an outpatient. Patient was supposed to come to see me in the office tomorrow morning, however she ended up coming to the ER for evaluation and she will be staying overnight at least and reevaluate the patient over the next 24 hours. 08/27: Patient sitting up in bed in no apparent distress, she is feeling a bit better today than yesterday, she was started on DuoNeb 3 mL nebulization 4 times every day, she was also started on Lasix 40 mg IV push every 12 hours, will continue with that, cardiology saw the patient, recommended continue current treatment plan, will follow-up with the patient for another 24 hours, continue to monitor input and output and daily weight. Echocardiogram is not repeated. 08/28: Patient sitting up in the edge of the bed, she continues to be somewhat short of breath with minimal activity, she continues to have a dry cough, no phlegm production, laboratory evaluation showed evidence of hypokalemia will replace with potassium chloride 40 mill equivalent x 1, continue current treatment plan, patient was seen in consultation by cardiology who recommended the same thing, changed the patient to inpatient as the patient has an acute exacerbation of congestive heart failure with HFrEF due to nonischemic cardiomyopathy. I will follow-up with the patient very closely, she was started also on Farxiga 10 mg orally once every day. 08/29: Patient sitting up in bed is feeling a bit better today, she denies any chest pain, she continues to be dyspneic on exertion, her laboratory evaluation is suggestive of anemia of chronic illnesses, her iron level is low however her iron saturation is low as well, total antibiotic capacity is normal and ferritin level is normal, we will follow-up with the patient very closely, the rest of the labs are pending the time of dictation because of her chronic kidney disease, I have sent serum protein electrophoresis with immunofixation along with urine protein electrophoresis with immunofixation along with kappa lambda light chain that still pending at time of dictation. I will continue current treatment plan, I believe the patient need to be maintained on the same treatment plan, she may be able to be discharged home tomorrow morning. REVIEW OF SYSTEMS: Constitutional: No documented fever, no chills, no night sweats. No weight change. No weakness, fatigue or lethargy. No daytime sleepiness. HEENT: No headache. No blurred vision or double vision, no loss of vision. No loss of Hearing, no ringing in the ears, no dizziness. No nasal drainage or congestion. No epistaxis. No sore throat. Lungs: positive for shortness of breath, no cough, no sputum production. No wheezing. Reports dyspnea with activity. Cardiovascular: no chest pain, positive for lower extremity edema. No palpitations. No paroxysmal nocturnal dyspnea. positive for orthopnea. No lightheadedness or dizziness. No syncopal episodes. Abdominal: Reports abdominal pain. No nausea, vomiting. No diarrhea. No constipation. No bloody or tarry stools reports loss of appetite. Genitourinary: No dysuria, increased frequency, urgency. No urinary retention. Musculoskeletal: No myalgias. No muscle weakness, no gait dysfunction, no frequent falls. No back pain. No neck pain. Integumentary: No wounds, no lesions. No rash or pruritus. No unusual bruising. No change in hair or nails. Neurologic: No aphasia. No facial droop. No change in mentation. No head injury. No headache. No paralysis. No paresthesia. Psychiatric: positive for depression. positive for anxiety. No mood swings. Endocrine: No abnormal blood sugars. No weight change. PHYSICAL EXAMINATION: General: 83-year-old female sitting up in bed in minimal respiratory distress HEENT: Head is atraumatic, normocephalic, pupils were equal round reactive to light and recommendation, extraocular muscle movement were intact, sclera nonicteric, conjunctivae were pale, mucous membranes of the mouth are somewhat dry. Neck: Supple, no JVP, normal carotid upstroke bilaterally, no lymphadenopathy. Chest: Decreased breath sounds at the bases, few rhonchi, no expiratory wheezes, no chest wall tenderness, no intercostal retractions. Heart: First heart sound is normal, second heart sounds normal, AICD in the left upper precordium there is systolic ejection murmur 2 over systolic in the left sternal border. Abdomen: Soft, nontender, nondistended, positive bowel sounds. Extremities: There is +1 edema no calf tenderness DP +2 bilaterally. Neurologic examination: Patient is awake alert and oriented X3, cranial nerves II-12 appear grossly intact, muscle power were 5 out of 5 in upper extremities and 5 out of 5 in bilateral lower extremities, deep tendon reflexes normal bilaterally. ASSESSMENT AND PLAN: 1. Acute on chronic systolic heart failure due to nonischemic cardiomyopathy. Continue Lasix 40 mg IV push every 12 hours, monitor input and output and daily weight, continue patient on Entresto 24/26 mg orally twice every day, continue metoprolol ER 25 mg twice every day, continue spironolactone 25 mg once every day, Farxiga 10 mg once every day, monitor the patient's symptoms very closely. 2. Nonischemic cardiomyopathy post biventricular AICD. Continue patient on metoprolol succinate 200 mg orally once every day, continue patient on spironolactone 25 mg orally once every day, continue Lasix 40 mg IV push twice every day continue patient on Entresto 24-26 mg orally bid continue spironolactone 25 mg orally once every day, continue Farxiga 10 mg once every day for guideline directed medical therapy. 3. Hypertension and hypertensive cardiovascular disease. Continue metoprolol ER 25 mg orally twice every day, continue Entrestor 24-26 mg orally twice every day. 4. Hyperlipidemia. Continue atorvastatin 20 mg orally once every day. Monitor the patient lipid panel, keep LDL 55-70. 5. Hypothyroidism. Continue patient on Synthroid 75 g orally once every day. 6. History of diverticulosis with Diverticulitis in the past stable at this time. 7. Paroxysmal atrial fibrillation. Continue patient on metoprolol ER 25 mg po twice every day, continue with Xarelto 15 mg orally once every day, 8. History of gout. Continue patient on allopurinol 100 mg orally once every day. 9. History of breast cancer. Currently in remission. 10. History of osteoarthritis. Stable at this time. 11. Chronic kidney disease stage IIIa monitor the patient's symptoms very closely, monitor the patient CMP over the next 24 hours. Continue current treatment plan. 12. DVT prophylaxis. Continue patient on Xarelto 15 mg orally once every day. 13. GI prophylaxis. Continue patient on PPI. 14. Anemia of chronic kidney disease. It is okay to continue with iron supplements and monitor the patient very closely, await the final result of the labs that were ordered including serum protein electrophoresis with immunofixation urine protein electrophoresis with immunofixation and kappa and lambda light chain with ratio. 15. Hypokalemia status post replacement 16. Hopefully home in a.m. Objective - Vital Signs Vital signs: Vital Signs Temp 97.4 F L 08/29/24 06:46 Pulse 69 08/29/24 06:46 Resp 16 08/29/24 06:46 BP 95/51 08/29/24 06:46 Pulse Ox 95 08/29/24 06:46 FiO2 Intake & Output 08/28/24 08/29/24 08/29/24 18:59 06:59 18:59 Intake Total 1260 Balance 1260 Weight 88.5 kg Intake: Oral 1260 Other: # Voids 1 1 - Labs CBC & Chem 7: 08/29/24 07:50 08/29/24 07:58 Labs: Abnormal Lab Results - Last 24 Hours (Table) 08/28/24 08/28/24 08/29/24 Range/Units 03:25 03: 07:50 WBC 10.52 H (4.50-10.00) X 10*3/uL RBC 3.15 L 3.27 L (4.10-5.20) X 10*6/uL Hgb 8.6 L 9.0 L (12.0-15.0) g/dL Hct 28.6 L 30.2 L (37.2-46.3) % MCHC 30.1 L 29.7 L (32.0-37.0) g/dL Neutrophils # 7.74 H (1.80-7.70) X 10*3/uL Potassium 3.4 L (3.5-5.5) mmol/L Carbon Dioxide (22-30) mmol/L Anion Gap 13.00 H (4.00-12.00) mmol/L BUN 27.4 H (9.0-27.0) mg/dL Creatinine (0.52-1.04) mg/dL Est GFR (CKD-EPI) 50 L (>=60) BUN/Creatinine Ratio 24.91 H (12.00-20.00) Ratio Glucose 114 H (70-110) mg/dL 08/29/24 Range/Units 07:58 WBC (4.50-10.00) X 10*3/uL RBC (4.10-5.20) X 10*6/uL Hgb (12.0-15.0) g/dL Hct (37.2-46.3) % MCHC (32.0-37.0) g/dL Neutrophils # (1.80-7.70) X 10*3/uL Potassium (3.5-5.5) mmol/L Carbon Dioxide 32 H (22-30) mmol/L Anion Gap (4.00-12.00) mmol/L BUN 27 H (9.0-27.0) mg/dL Creatinine 1.12 H (0.52-1.04) mg/dL Est GFR (CKD-EPI) (>=60) BUN/Creatinine Ratio (12.00-20.00) Ratio Glucose (70-110) mg/dL
--- NOTE | 2024-08-29 16:36 | P.PN ---
Subjective Progress Note Date: 08/29/24 HISTORY OF PRESENT ILLNESS: This is a 83-year-old female with a past medical history significant for no nischemic cardiomyopathy, congestive heart failure, atrial fibrillation, AV kristen ablation, biventricular ICD, ventricular tachycardia, hyperlipidemia, and hypothyroidism. Patient follows in the office with Dr. Mireles. We have been asked to see the patient in consultation for congestive heart failure. Patient examined at the bedside. Patient presented to the hospital with a chief complaint of shortness of breath and increased lower extremity edema. She also reports swelling into her abdomen. She complains of a dry cough. She states her symptoms have been going on for approximately 1 week. She states that she has been compliant with all of her medications and also with a low-sodium diet. Patient was found to be in acute CHF and was started on IV Lasix. DIAGNOSTICS: - EKG reveals ventricular paced rhythm - Chest xray persistent cardiomegaly with multilead pacemaker/defibrillator and mild vascular congestion. Small to tiny right pleural effusion redemonstrated. Findings consistent with CHF exacerbation. - Laboratory data: WBC 9.73. Hemoglobin 8.3. Platelet count 227. Sodium 143. Potassium 3.7. BUN 24. Creatinine 1.2. Troponin negative x 3. proBNP 3160. - Current home cardiac medications include Lipitor 20 mg at night, Lasix 40 mg twice a day, metoprolol succinate 25 mg twice daily, Xarelto 15 mg at night, Entresto 24 to 26 mg twice a day, Aldactone 25 mg daily. - Most recent echocardiogram obtained in October 2023 revealed ejection fraction 20 to 25%, hypokinetic basal segments, moderate MR, trace aortic regurgitation, mild tricuspid regurgitation - Cardiac catheterization history: April 2012 revealing ejection fraction 30%. 50% mid LAD. 50% proximal circumflex, 40% RCA stenosis which is chronic and stable. Mild progression of disease in the LAD and circumflex. 08/28/2024 She reports her shortness of breath has improved. She denies any dizziness. No chest pain. Swelling is also improving. She is urinating a lot with the Lasix. She admits she does have some blood when she wipes after a bowel movement and has related this to her hemorrhoids in the past. She does appear iron deficient on lab work. Creatinine 1.1. 08/29/2024 She has been feeling better. Main complaint is still a cough but shortness of breath improving. Hemoglobin 9.0, creatinine stable 1.12. PHYSICAL EXAM: VITAL SIGNS: Reviewed. GENERAL: Well-developed in no acute distress. HEENT: Head is normocephalic. Pupils are equal, round. Sclerae anicteric. Mucous membranes of the mouth are moist. Neck supple. No JVD or thyromegaly LUNGS: Respirations even and unlabored. Lungs essentially clear to auscultation bilaterally. HEART: Regular rate and rhythm. S1 and S2 heard. ABDOMEN: Soft. Nondistended. Nontender. EXTREMITIES: Normal range of motion. No clubbing or cyanosis. Peripheral pulses intact. Bilateral lower extremity edema noted. NEUROLOGIC: Awake and alert. Oriented x 3. ASSESSMENT: Shortness of breath Acute on chronic heart failure with reduced EF, 20 to 25% Persistent atrial fibrillation status post AV kristen ablation History of biventricular ICD, Medtronic Nonobstructive coronary artery disease Nonischemic cardiomyopathy History of ventricular tachycardia Hyperlipidemia Moderate mitral regurgitation Anemia, unclear etiology Iron deficient anemia PLAN: She is anemic, iron deficient on lab work, recommend iron supplement 3 times daily. Consider further workup of anemia. If she continues to be anemic may need to consider holding anticoagulation and may even need to consider Watchman device. Continue IV Lasix 40 mg every 12 hours, transition to oral diuretics tomorrow. Daily weights, accurate intake and output, monitoring of kidney function Anticipate discharge home tomorrow. Further recommendations pending patient course Patient seen and examined in rounds with Dr. Fabian. Nurse practitioner note has been reviewed by physician. Signing provider agrees with the documented findings, assessment, and plan of care documented by CHE[employer] P[employer]ER as a scribe. Objective - Vital Signs Vital signs: Vital Signs Temp 97.4 F L 08/29/24 12:57 Pulse 60 08/29/24 15:58 Resp 18 08/29/24 12:57 BP 99/63 08/29/24 12:57 Pulse Ox 93 L 08/29/24 12:57 FiO2 Intake & Output 08/28/24 08/29/24 08/29/24 18:59 06:59 18:59 Intake Total 1260 Balance 1260 Weight 88.5 kg Intake: Oral 1260 Other: # Voids 1 1 - Labs CBC & Chem 7: 08/29/24 07:50 08/29/24 07:58 Labs: Abnormal Lab Results - Last 24 Hours (Table) 08/29/24 08/29/24 Range/Units 07:50 07:58 RBC 3.27 L (3.80-5.40) m/uL Hgb 9.0 L (11.4-16.0) gm/dL Hct 30.2 L (34.0-46.0) % MCHC 29.7 L (31.0-37.0) g/dL Carbon Dioxide 32 H (22-30) mmol/L BUN 27 H (7-17) mg/dL Creatinine 1.12 H (0.52-1.04) mg/dL
[2024-08-29] MEDS: TEMAZEPAM 15 MG CAP PO STA (21:49)
[2024-08-30 07:44] VITALS: RESP 18
[2024-08-30 08:25] LABS: Basophils # (A) 0.06 X 10*3/uL (0.00-0.10); Basophils % (A) 0.7 %; Eosinophils # (A) 0.25 X 10*3/uL (0.04-0.35); Eosinophils % (A) 2.7 %; HCT 28.4 % (37.2-46.3); HGB 8.6 g/dL (12.0-15.0); Lymphocytes # (A) 1.76 X 10*3/uL (0.90-5.00); Lymphocytes % (A) 19.1 %; MCH 27.7 pg (27.0-32.0); MCHC 30.3 g/dL (32.0-37.0); MCV 91.3 FL (80.0-97.0); Mean Platelet Volume 11.1 FL (9.5-12.2); Monocytes # (A) 0.94 X 10*3/uL (0.20-1.00); Monocytes % (A) 10.2 %; NRBC Per 100 WBC 0 X 10*3/uL (0.00-0.01); Neutrophils # (A) 6.18 X 10*3/uL (1.80-7.70); Platelet Count 236 X 10*3/uL (140-440); RBC 3.11 X 10*6/uL (4.10-5.20); RDW 14.5 % (11.5-14.5); WBC 9.22 X 10*3/uL (4.50-10.00)
[2024-08-30 08:29] LABS: ALT 12 U/L (8-44); AST 18 U/L (13-35); Albumin 3.9 g/dL (3.8-4.9); Albumin/Globulin Ratio 1.56 Ratio (1.60-3.17); BUN/Creat Ratio 18.42 Ratio (12.00-20.00); Blood Urea Nitrogen 22.1 mg/dL (9.0-27.0); Calcium 9.2 mg/dL (8.7-10.3); Carbon Dioxide 28.7 mmol/L (21.6-31.8); Chloride 100 mmol/L (96-109); Globulin 2.5 g/dL (1.6-3.3); Glucose 92 mg/dL (70-110); Magnesium 2.2 mg/dL (1.5-2.4); Potassium 4.1 mmol/L (3.5-5.5); Sodium 140 mmol/L (135-145); Total Bilirubin 0.4 mg/dL (0.3-1.2); Total Protein 6.4 g/dL (6.2-8.2)
[2024-08-30 08:30] LABS: Alkaline Phosphatase 81 U/L (41-126)
--- NOTE | 2024-08-30 09:36 | P.PN ---
Subjective Progress Note Date: 08/30/24 HISTORY OF PRESENT ILLNESS: This is a 83-year-old female with a past medical history significant for no nischemic cardiomyopathy, congestive heart failure, atrial fibrillation, AV kristen ablation, biventricular ICD, ventricular tachycardia, hyperlipidemia, and hypothyroidism. Patient follows in the office with Dr. Mireles. We have been asked to see the patient in consultation for congestive heart failure. Patient examined at the bedside. Patient presented to the hospital with a chief complaint of shortness of breath and increased lower extremity edema. She also reports swelling into her abdomen. She complains of a dry cough. She states her symptoms have been going on for approximately 1 week. She states that she has been compliant with all of her medications and also with a low-sodium diet. Patient was found to be in acute CHF and was started on IV Lasix. DIAGNOSTICS: - EKG reveals ventricular paced rhythm - Chest xray persistent cardiomegaly with multilead pacemaker/defibrillator and mild vascular congestion. Small to tiny right pleural effusion redemonstrated. Findings consistent with CHF exacerbation. - Laboratory data: WBC 9.73. Hemoglobin 8.3. Platelet count 227. Sodium 143. Potassium 3.7. BUN 24. Creatinine 1.2. Troponin negative x 3. proBNP 3160. - Current home cardiac medications include Lipitor 20 mg at night, Lasix 40 mg twice a day, metoprolol succinate 25 mg twice daily, Xarelto 15 mg at night, Entresto 24 to 26 mg twice a day, Aldactone 25 mg daily. - Most recent echocardiogram obtained in October 2023 revealed ejection fraction 20 to 25%, hypokinetic basal segments, moderate MR, trace aortic regurgitation, mild tricuspid regurgitation - Cardiac catheterization history: April 2012 revealing ejection fraction 30%. 50% mid LAD. 50% proximal circumflex, 40% RCA stenosis which is chronic and stable. Mild progression of disease in the LAD and circumflex. 08/28/2024 She reports her shortness of breath has improved. She denies any dizziness. No chest pain. Swelling is also improving. She is urinating a lot with the Lasix. She admits she does have some blood when she wipes after a bowel movement and has related this to her hemorrhoids in the past. She does appear iron deficient on lab work. Creatinine 1.1. 08/29/2024 She has been feeling better. Main complaint is still a cough but shortness of breath improving. Hemoglobin 9.0, creatinine stable 1.12. 3/ Patient is seen and examined. She denies having chest pain, no shortness of breath. She states she slept all right last night. Lower extremity edema significantly improved. She has been maintained on IV Lasix 40 mg every 12 hours. Blood pressure 97/53, heart rate 64, pulse ox 93% on room air. Repeat blood work reveals hemoglobin 8.6. Potassium 4.1, BUN 22 creatinine 1.2. PHYSICAL EXAM: VITAL SIGNS: Reviewed. GENERAL: Well-developed in no acute distress. HEENT: Head is normocephalic. Pupils are equal, round. Sclerae anicteric. LUNGS: Respirations even and unlabored. Lungs essentially clear to auscultation bilaterally. HEART: Regular rate and rhythm. S1 and S2 heard. ABDOMEN: Soft. Nondistended. Nontender. EXTREMITIES: No clubbing or cyanosis. Peripheral pulses intact. no lower extremity edema noted. NEUROLOGIC: Awake and alert. Oriented x 3. ASSESSMENT: Shortness of breath Acute on chronic heart failure with reduced EF, 20 to 25% Persistent atrial fibrillation status post AV kristen ablation History of biventricular ICD, Medtronic Nonobstructive coronary artery disease Nonischemic cardiomyopathy History of ventricular tachycardia Hyperlipidemia Moderate mitral regurgitation Anemia, unclear etiology Iron deficient anemia PLAN: Continue patient's current home medications and add Farxiga 10 mg daily IV Lasix will be transition to oral Lasix 40 mg twice daily which is patient's home dose Patient is cleared for discharge from cardiology May follow-up with Dr. Mireles in 1 week. Nurse practitioner note has been reviewed, I agree with documented findings and plan of care. Patient was seen and examined. Objective - Vital Signs Vital signs: Vital Signs Temp 97.6 F 08/30/24 07:08 Pulse 64 08/30/24 07:08 Resp 18 08/30/24 07:08 BP 97/53 08/30/24 07:08 Pulse Ox 93 L 08/30/24 07:08 FiO2 Intake & Output 08/29/24 08/30/24 08/30/24 18:59 06:59 18:59 Intake Total 1177 Balance 1177 Weight 88.5 kg Intake: Oral 1177 Other: # Voids 1 - Labs CBC & Chem 7: 08/30/24 05:18 08/30/24 05:18 Labs: Abnormal Lab Results - Last 24 Hours (Table) 08/30/24 08/30/24 Range/Units 05:18 05:18 RBC 3.11 L (4.10-5.20) X 10*6/uL Hgb 8.6 L (12.0-15.0) g/dL Hct 28.4 L (37.2-46.3) % MCHC 30.3 L (32.0-37.0) g/dL Est GFR (CKD-EPI) 45 L (>=60) Albumin/Globulin Ratio 1.56 L (1.60-3.17) Ratio
--- NOTE | 2024-08-30 09:55 | P.DS ---
Providers Date of admission: 08/26/24 12:11 Expected date of discharge: 08/30/24 Attending physician: Kostas Kunz Consults: 08/26/24 12:11 Consult Physician Urgent Consulting Provider: [facility] Consult Reason/Comments: aechf Do you want consulting provider notified?: Yes Primary care physician: Kostas Kunz Hospital Course: HISTORY OF PRESENT ILLNESS: This is a 83-year-old female with a previous medical history significant for hypertension and hypertensive cardiovascular disease, hyperlipidemia, nonischemic cardiomyopathy status post biventricular AI CD/permanent pacemaker, paroxysmal atrial fibrillation, gout, malignant neoplasm of the right breast, hypothyroidism, patient presented to the emergency department at [facility] with increased shortness of breath as well as increased swelling in both lower extremities, she did receive 60 mg Lasix in the emergency department, and Dr. Mcmahan did not feel that the patient can be discharged home at that time, therefore she was admitted to the hospital for an observation status she was started on Lasix 40 mg IV push every 12 hours, and she will be seen in consultation by cardiology, follow-up with the patient very closely, if the fluid status is better in the next 24 hours she can be discharged home and follow-up with us as an outpatient. Patient was supposed to come to see me in the office tomorrow morning, however she ended up coming to the ER for evaluation and she will be staying overnight at least and reevaluate the patient over the next 24 hours. 08/27: Patient sitting up in bed in no apparent distress, she is feeling a bit better today than yesterday, she was started on DuoNeb 3 mL nebulization 4 times every day, she was also started on Lasix 40 mg IV push every 12 hours, will continue with that, cardiology saw the patient, recommended continue current treatment plan, will follow-up with the patient for another 24 hours, continue to monitor input and output and daily weight. Echocardiogram is not repeated. 08/28: Patient sitting up in the edge of the bed, she continues to be somewhat short of breath with minimal activity, she continues to have a dry cough, no phlegm production, laboratory evaluation showed evidence of hypokalemia will replace with potassium chloride 40 mill equivalent x 1, continue current treatment plan, patient was seen in consultation by cardiology who recommended the same thing, changed the patient to inpatient as the patient has an acute exacerbation of congestive heart failure with HFrEF due to nonischemic cardiomyopathy. I will follow-up with the patient very closely, she was started also on Farxiga 10 mg orally once every day. 3/2: Patient sitting up in bed is feeling a bit better today, she denies any chest pain, she continues to be dyspneic on exertion, her laboratory evaluation is suggestive of anemia of chronic illnesses, her iron level is low however her iron saturation is low as well, total antibiotic capacity is normal and ferritin level is normal, we will follow-up with the patient very closely, the rest of the labs are pending the time of dictation because of her chronic kidney disease, I have sent serum protein electrophoresis with immunofixation along with urine protein electrophoresis with immunofixation along with kappa lambda light chain that still pending at time of dictation. I will continue current treatment plan, I believe the patient need to be maintained on the same treatment plan, she may be able to be discharged home tomorrow morning. 3/3 shortness of breath, lower extremity edema is improved. She has been seen by cardiology this morning and transition from IV Lasix to oral at her home dose. Vital signs are stable. Repeat blood work reveals hemoglobin 8.6, BUN 22 creatinine 1.2, sodium 140, potassium 4.1. Discharge plan is to return home. Patient will be discharged home today in stable condition. DISCHARGE DIAGNOSES: 1. Acute on chronic systolic heart failure due to nonischemic cardiomyopathy. 2. Nonischemic cardiomyopathy post biventricular AICD. 3. Hypertension and hypertensive cardiovascular disease. 4. Hyperlipidemia. 5. Hypothyroidism. 6. History of diverticulosis with Diverticulitis in the past. 7. Paroxysmal atrial fibrillation. 8. History of gout. 9. History of breast cancer. 10. History of osteoarthritis. 11. Chronic kidney disease stage IIIa. 12. Anemia of chronic kidney disease. 15. Hypokalemia Greater than 35 minutes was utilized and coordinating patient's discharge. Impression and plan of care have been directed as dictated by the signing physician. Merlene Bunch nurse practitioner acting as scribe for signing physician. Patient Condition at Discharge: Stable Plan - Discharge Summary New Discharge Prescriptions: New Ferrous Sulfate [Iron (65 MG Elemental)] 325 mg PO DAILY tab Dapagliflozin Propanediol [Farxiga] 10 mg PO DAILY #30 tab Continue Furosemide [Lasix] 40 mg PO BID@0800,1500 Levothyroxine Sodium [Synthroid] 75 mcg PO DAILY Sacubitril/Valsartan [Entresto 24 mg-26 mg Tablet] 1 tab PO BID allopurinoL [Zyloprim] 100 mg PO HS Atorvastatin [Lipitor] 20 mg PO HS Rivaroxaban [Xarelto] 15 mg PO HS Ubidecarenone [Coenzyme Q10] 200 mg PO HS Spironolactone [Aldactone] 25 mg PO DAILY Vitamin D3(Unknown Dose) 1 tab PO BID Potassium Gluconate [Potassium Gluconate ER] 99 mg PO HS Magnesium 250 mg PO HS Metoprolol Succinate (ER) [Toprol XL] 25 mg PO BID Discharge Medication List Furosemide [Lasix] 40 mg PO BID@0800,1500 11/30/13 [History] Levothyroxine Sodium [Synthroid] 75 mcg PO DAILY 10/20/17 [History] Sacubitril/Valsartan [Entresto 24 mg-26 mg Tablet] 1 tab PO BID 01/19/18 [History] allopurinoL [Zyloprim] 100 mg PO HS 01/27/20 [History] Atorvastatin [Lipitor] 20 mg PO HS 06/09/20 [History] Rivaroxaban [Xarelto] 15 mg PO HS 06/14/21 [History] Potassium Gluconate [Potassium Gluconate ER] 99 mg PO HS 06/24/21 [History] Ubidecarenone [Coenzyme Q10] 200 mg PO HS 12/27/22 [History] Magnesium 250 mg PO HS 11/21/23 [History] Spironolactone [Aldactone] 25 mg PO DAILY 11/21/23 [History] Metoprolol Succinate (ER) [Toprol XL] 25 mg PO BID 08/26/24 [History] Vitamin D3(Unknown Dose) 1 tab PO BID 08/26/24 [History] Dapagliflozin Propanediol [Farxiga] 10 mg PO DAILY #30 tab 08/30/24 [Rx] Ferrous Sulfate [Iron (65 MG Elemental)] 325 mg PO DAILY tab 08/30/24 [Rx] Follow up Appointment(s)/Referral(s): Donny Mireles MD [STAFF PHYSICIAN] - 1 Week Kostas Kunz MD [Primary Care Provider] - 1 Week Discharge Disposition: HOME SELF-CARE
[2024-08-30 12:31] VITALS: BP 111/70; PULSE 63; TEMP 97.5
[2024-08-30] MEDS ORDERED: FUROSEMIDE 40 MG TAB PO SCH (16:00)
[2024-09-03 07:19] LABS: Albumin 3.6 g/dL (3.80-4.90); Gamma Globulin 0.45 g/dL (0.70-1.50)
== END 2024-08-30 12:44 | disposition home or self-care (01) | DRG 291 ==
LOC: EC 08:53 → 5NMEDONC 12:11 → OBSVTOIN 08-27 12:12
PROVIDERS: ADMIT Internal Medicine; ATTEND Internal Medicine
DX: I13.0 Hypertensive heart and chronic kidney disease with heart failure and stage 1 through stage 4 chronic kidney disease, or unspecified chronic kidney disease (principal); I50.23 Acute on chronic systolic (congestive) heart failure; D63.1 Anemia in chronic kidney disease; N18.31 Chronic kidney disease, stage 3a; E03.9 Hypothyroidism, unspecified; I34.0 Nonrheumatic mitral (valve) insufficiency; I48.19 Other persistent atrial fibrillation; I42.8 Other cardiomyopathies; M10.9 Gout, unspecified; E87.6 Hypokalemia; D50.9 Iron deficiency anemia, unspecified; E78.5 Hyperlipidemia, unspecified; K59.00 Constipation, unspecified; R06.89 Other abnormalities of breathing; I25.10 Atherosclerotic heart disease of native coronary artery without angina pectoris; Z79.01 Long term (current) use of anticoagulants; Z85.3 Personal history of malignant neoplasm of breast; Z95.810 Presence of automatic (implantable) cardiac defibrillator; Z79.890 Hormone replacement therapy; Z91.048 Other nonmedicinal substance allergy status; Z87.891 Personal history of nicotine dependence; I25.2 Old myocardial infarction; Z79.899 Other long term (current) drug therapy
CPT/HCPCS: 36415; 71046; 80048; 80053; 82607; 82728; 82746; 83010; 83540; 83550; 83605; 83615; 83735; 83880; 83883; 84132; 84165; 84166; 84484; 85025; 85045; 85610; 85730; 86334; 86335; 87636; 93005; 94640; 96374; 99285